=== PATIENT | male | born 1955 | race Caucasian/White ===

== ENCOUNTER → 2019-11-24 13:37 | Outpatient (BNVA) | payer MEDICARE, MEDICAID, SELFPAY | PROVIDERS: Family Provider Nurse Practitioner; PCP Nurse Practitioner; Visit Provider Nurse Practitioner | DX: M10.371 Gout due to renal impairment, right ankle and foot (principal); E11.65 Type 2 diabetes mellitus with hyperglycemia | CPT/HCPCS: 80053; 83036; 84550 ==

== ENCOUNTER 2019-12-09 14:38 | Outpatient (CLI) | payer MEDICARE, MEDICAID, SELFPAY ==
--- NOTE | 2019-12-09 15:00 | USCV_ITS ---
Pawan Marcum Age: 64 Gender: M : 1955 Exam Date: 12/09/2019 14:55 Ordering Phys: Riddhi Pena MD ([email or web address]) Technologist: Elaine Bradford Exam Location: [facility] Indication: LV FUNCTION AND AO VALVE ASSESSMENT BP: 124 / 82 HR: 80 Rhythm: Sinus Technical Quality: Adequate MEASUREMENTS (Male / Female) Normal Values 2D ECHO LV Diastolic Diameter PLAX 5.0 cm 4.2 - 5.9 / 3.9 - 5.3 cm LV Systolic Diameter PLAX 4.6 cm IVS Diastolic Thickness 1.1 cm 0.6 - 1.0 / 0.6 - 0.9 cm IVS Systolic Thickness 1.2 cm LVPW Diastolic Thickness 1.1 cm 0.6 - 1.0 / 0.6 - 0.9 cm LVPW Systolic Thickness 1.4 cm LVOT Diameter 2.1 cm LV Ejection Fraction 2D Teich 18.8 % LV Ejection Fraction MOD 2C 42.2 % LV Ejection Fraction 2C AL 44.0 % LA Diameter 3.9 cm LA Width 4.8 cm LA Height 5.7 cm RA Width 3.9 cm RA Height 6.3 cm Aorta at Sinotubular Diameter 5.9 cm M-MODE Aortic Annulus Diameter 2.7 cm LA Ao Ratio MM 1.4 MV E Point Septal Separation 0.6 cm DOPPLER AV Peak Velocity 199.0 cm/s LVOT Peak Velocity 60.0 cm/s AV Area Cont Eq vti 0.8 cm squared AV Area Cont Eq pk 1.0 cm squared MV Area PHT 5.0 cm squared Mitral E to A Ratio 0.7 MV E' Velocity 14.0 cm/s Mitral E to MV E' Ratio 5.6 Mitral E to LV E' Lateral Ratio 4.0 Mitral E to LV E' Septal Ratio 9.2 TR Peak Velocity 272.9 cm/s TR Peak Gradient 29.8 mmHg TR Mean Velocity 195.0 cm/s TR Mean Gradient 16.7 mmHg TR Velocity Time Integral 68.3 cm TV Peak E Velocity 49.0 cm/s Right Atrial Pressure 3.0 mmHg Pulmonary Artery Systolic Pressu 32.8 mmHg PV Peak Velocity 69.0 cm/s RV Acceleration Time 0.1 s RV Ejection Time 0.3 s RV AcT/ET 0.4 FINDINGS Left Ventricle Normal left ventricular cavity size. Mildly decreased left ventricular systolic function. Left ventricular ejection fraction is estimated at 50 %. Global left ventricular hypokinesis. Grade I/IV diastolic dysfunction (abnormal relaxation filling pattern), normal to mildly elevated filling pressures. Right Ventricle The right ventricle is normal in size and function. Right Atrium The right atrium is normal in size. Left Atrium The left atrium is normal in size. Mitral Valve Moderately thickened mitral valve. Mild mitral annular calcification. No mitral valve stenosis. Moderate mitral valve regurgitation. Aortic Valve Severe aortic valve calcification. Moderate aortic valve stenosis, mean gradient 7.9 mmHg, DESIRE 0.84 cm squared. cannot rule out pseudo aortic stenosis, may need furhter exploration with JONATHAN Tricuspid Valve Moderate tricuspid valve regurgitation. Pulmonic Valve Structurally normal pulmonic valve without significant stenosis. There is no pulmonic regurgitation. Pericardium Normal pericardium without effusion. Aorta Normal ascending aorta dimension. CONCLUSIONS 1-Normal left ventricular cavity size. Mildly decreased left ventricular systolic function. Left ventricular ejection fraction is estimated at 50 %. Global left ventricular hypokinesis. Grade I/IV diastolic dysfunction (abnormal relaxation filling pattern), normal to mildly elevated filling pressures. 2-Severe aortic valve calcification. Moderate aortic valve stenosis, mean gradient 7.9 mmHg, DESIRE 0.84 cm squared. cannot rule out pseudo aortic stenosis, may need furhter exploration with JONATHAN. 3-Moderately thickened mitral valve. Mild mitral annular calcification. No mitral valve stenosis. Moderate mitral valve regurgitation. 4-Moderate tricuspid valve regurgitation. 5-There is no pericardial effusion. 6-Pulmonary artery systolic pressure is within normal limits. 7-Right atrial pressure is around 5 mm of mercury. 8-There are no prior echocardiogram studies to compare. Riddhi Pena MD (Electronically Signed) Final Date: 13 December 2019 15:24 S
== END 2019-12-09 14:39 | disposition home or self-care (01) ==
LOC: RAD 14:41
PROVIDERS: Family Provider Nurse Practitioner; PCP Nurse Practitioner; Visit Provider Internal Medicine Cardiovascular Disease
DX: Z95.2 Presence of prosthetic heart valve (principal); I35.0 Nonrheumatic aortic (valve) stenosis; I70.0 Atherosclerosis of aorta; I05.9 Rheumatic mitral valve disease, unspecified; I07.1 Rheumatic tricuspid insufficiency
CPT/HCPCS: 93306

== ENCOUNTER → 2019-12-22 15:57 | Outpatient (BNVA) | payer MEDICARE, MEDICAID, SELFPAY | PROVIDERS: Family Provider Nurse Practitioner; PCP Nurse Practitioner; Visit Provider Nurse Practitioner | DX: E11.65 Type 2 diabetes mellitus with hyperglycemia (principal) | CPT/HCPCS: 80053; 85025 ==

== ENCOUNTER → 2020-02-29 11:54 | Outpatient (BNVA) | payer MEDICARE, MEDICAID, SELFPAY | PROVIDERS: Family Provider Nurse Practitioner; PCP Family Medicine; Visit Provider Family Medicine | DX: E11.65 Type 2 diabetes mellitus with hyperglycemia (principal); E78.2 Mixed hyperlipidemia; M10.9 Gout, unspecified | CPT/HCPCS: 80053; 80061; 82044; 83036; 84550; 85025 ==

== ENCOUNTER → 2020-03-07 09:46 | Outpatient (BNVA) | payer MEDICARE, MEDICAID, SELFPAY | PROVIDERS: Family Provider Nurse Practitioner; PCP Family Medicine; Visit Provider Family Medicine | DX: M25.571 Pain in right ankle and joints of right foot (principal) | CPT/HCPCS: 73610 ==

== ENCOUNTER → 2020-06-20 17:05 | Outpatient (BNVA) | payer MEDICARE, MEDICAID, SELFPAY | PROVIDERS: Family Provider Nurse Practitioner; PCP Family Medicine; Visit Provider Family Medicine | DX: E78.2 Mixed hyperlipidemia (principal); E11.65 Type 2 diabetes mellitus with hyperglycemia; M51.37 Other intervertebral disc degeneration, lumbosacral region; I10 Essential (primary) hypertension; Z23 Encounter for immunization | CPT/HCPCS: 80053; 80061; 83036; 85025 ==

== ENCOUNTER → 2020-11-13 08:31 | Outpatient (BNVA) | payer MEDICARE, MEDICAID, SELFPAY | PROVIDERS: Family Provider Nurse Practitioner; PCP Family Medicine; Visit Provider Family Medicine | DX: E11.65 Type 2 diabetes mellitus with hyperglycemia (principal); E78.2 Mixed hyperlipidemia; I10 Essential (primary) hypertension; E11.8 Type 2 diabetes mellitus with unspecified complications | CPT/HCPCS: 80053; 80061; 83036; 84443; 85025 ==

== ENCOUNTER → 2021-02-26 10:20 | Outpatient (BNVA) | payer MEDICARE, MEDICAID, SELFPAY | PROVIDERS: Family Provider Nurse Practitioner; PCP Family Medicine; Visit Provider Family Medicine | DX: M10.071 Idiopathic gout, right ankle and foot (principal); K21.9 Gastro-esophageal reflux disease without esophagitis; M51.37 Other intervertebral disc degeneration, lumbosacral region; E11.65 Type 2 diabetes mellitus with hyperglycemia; E78.2 Mixed hyperlipidemia; I10 Essential (primary) hypertension; Z68.37 Body mass index [BMI] 37.0-37.9, adult; Z71.89 Other specified counseling | CPT/HCPCS: 80053; 80061; 83036; 84443; 84550; 85025 ==

== ENCOUNTER → 2021-06-26 13:11 | Outpatient (BNVA) | payer MEDICARE, MEDICAID, SELFPAY | PROVIDERS: Family Provider Nurse Practitioner; PCP Family Medicine; Visit Provider Internal Medicine Cardiovascular Disease | DX: I10 Essential (primary) hypertension (principal); I42.8 Other cardiomyopathies; E11.65 Type 2 diabetes mellitus with hyperglycemia; I50.20 Unspecified systolic (congestive) heart failure; I35.0 Nonrheumatic aortic (valve) stenosis; Z95.0 Presence of cardiac pacemaker; Z95.2 Presence of prosthetic heart valve | CPT/HCPCS: 80048; 83880; 85025 ==

== ENCOUNTER → 2021-07-01 13:21 | Outpatient (BNVA) | payer MEDICARE, MEDICAID, SELFPAY | PROVIDERS: Family Provider Nurse Practitioner; PCP Family Medicine; Visit Provider Family Medicine | DX: E78.2 Mixed hyperlipidemia (principal); E11.65 Type 2 diabetes mellitus with hyperglycemia; I10 Essential (primary) hypertension; K21.9 Gastro-esophageal reflux disease without esophagitis; M10.071 Idiopathic gout, right ankle and foot; I50.9 Heart failure, unspecified | CPT/HCPCS: 80053; 80061; 83036; 84443; 85025 ==

== ENCOUNTER → 2021-07-03 11:03 | Outpatient (BNVA) | payer MEDICARE, MEDICAID, SELFPAY | PROVIDERS: Family Provider Nurse Practitioner; PCP Family Medicine; Visit Provider Nurse Practitioner Family | DX: I50.20 Unspecified systolic (congestive) heart failure (principal); I10 Essential (primary) hypertension; Z79.899 Other long term (current) drug therapy | CPT/HCPCS: 80048 ==

== ENCOUNTER 2021-09-19 10:26 | Outpatient (CLI) | payer MEDICARE, MEDICAID, SELFPAY ==
--- NOTE | 2021-09-19 10:15 | USCV_ITS ---
Pawan Marcum Age: 66 Gender: M : 1955 Exam Date: 09/19/2021 10:50 Ordering Phys: Riddhi Pena MD ([email or web address]) Technologist: Darvin Weeks Exam Location: [facility] [place] Indication: SOB BP: 110 / 70 HR: 50 Rhythm: Sinus Technical Quality: Adequate MEASUREMENTS (Male / Female) Normal Values 2D ECHO LV Diastolic Diameter PLAX 4.6 cm 4.2 - 5.9 / 3.9 - 5.3 cm LV Systolic Diameter PLAX 3.5 cm IVS Diastolic Thickness 0.8 cm 0.6 - 1.0 / 0.6 - 0.9 cm IVS Systolic Thickness 1.7 cm LVPW Diastolic Thickness 1.1 cm 0.6 - 1.0 / 0.6 - 0.9 cm LVPW Systolic Thickness 1.7 cm LVOT Diameter 2.0 cm LV Ejection Fraction 2D Teich 46.7 % LV Ejection Fraction MOD 2C 44.9 % LV Ejection Fraction 2C AL 45.0 % LA Diameter 4.0 cm LA Width 5.3 cm LA Height 5.3 cm RA Width 4.1 cm RA Height 4.8 cm Aorta at Sinotubular Diameter 4.2 cm DOPPLER AV Peak Velocity 201.0 cm/s LVOT Peak Velocity 99.0 cm/s AV Area Cont Eq vti 1.3 cm squared AV Area Cont Eq pk 1.6 cm squared MV Area PHT 5.5 cm squared Mitral E to A Ratio 2.3 MV E' Velocity 75.0 cm/s TR Peak Velocity 182.2 cm/s TR Peak Gradient 13.3 mmHg TR Mean Velocity 133.4 cm/s TR Mean Gradient 7.6 mmHg TR Velocity Time Integral 47.8 cm Right Atrial Pressure 3.0 mmHg Pulmonary Artery Systolic Pressu 16.3 mmHg RV Acceleration Time 0.1 s RV Ejection Time 0.3 s RV AcT/ET 0.5 FINDINGS Left Ventricle Normal left ventricular cavity size. Moderately decreased left ventricular systolic function. Global left ventricular hypokinesis. Left ventricular ejection fraction is estimated at 45 %. Grade III/IV diastolic dysfunction (restrictive filling pattern), severely elevated filling pressures. Right Ventricle The right ventricle is normal in size and function. Right Atrium The right atrium is normal in size. Left Atrium The left atrium is normal in size. Mitral Valve Bioprosthetic valve sitting in normal position without significant valvular or paravalvular leak. Velocity across the aortic valve is 2.1 cm care. Aortic valve area appears to be 1.3 cm2. Aortic Valve k. Velocity across the aortic valve is 2.1 cm care. Aortic valve area appears to be 1.3 cm2 Tricuspid Valve Structurally normal tricuspid valve without significant stenosis or regurgitation. Pulmonary artery systolic pressure is normal. Pulmonic Valve Structurally normal pulmonic valve without significant stenosis. There is no pulmonic regurgitation. Pericardium Normal pericardium without effusion. Aorta Normal ascending aorta dimension. CONCLUSIONS 1-Normal left ventricular cavity size. Moderately decreased left ventricular systolic function. Global left ventricular hypokinesis. Left ventricular ejection fraction is estimated at 45 %. Grade III/IV diastolic dysfunction (restrictive filling pattern), severely elevated filling pressures. 2-Bioprosthetic valve sitting in normal position without significant valvular or paravalvular leak. Velocity across the aortic valve is 2.1 cm2. Aortic valve area appears to be 1.3 cm2. 3-Moderately thickened mitral valve. Moderate mitral annular calcification. No mitral valve stenosis. Mild mitral valve regurgitation. 4-There is no pericardial effusion. 5-Pulmonary artery systolic pressure is within normal limits. 6-Right atrial pressure is around 5 mm of mercury. Riddhi Pena MD (Electronically Signed) Final Date: 19 September 2021 16:54 S
== END 2021-09-19 10:27 | disposition home or self-care (01) ==
LOC: RAD 10:29
PROVIDERS: PCP Family Medicine; Visit Provider Internal Medicine Cardiovascular Disease
DX: R06.02 Shortness of breath (principal); I35.0 Nonrheumatic aortic (valve) stenosis; I25.5 Ischemic cardiomyopathy; I50.20 Unspecified systolic (congestive) heart failure; Z95.2 Presence of prosthetic heart valve; I05.9 Rheumatic mitral valve disease, unspecified
CPT/HCPCS: 93306

== ENCOUNTER → 2021-10-11 10:06 | Outpatient (BNVA) | payer MEDICARE, MEDICAID, SELFPAY | PROVIDERS: PCP Family Medicine; Visit Provider Family Medicine | DX: E11.65 Type 2 diabetes mellitus with hyperglycemia (principal); E78.2 Mixed hyperlipidemia; I10 Essential (primary) hypertension | CPT/HCPCS: 80053; 80061; 83036; 84443; 85025 ==

== ENCOUNTER → 2021-12-16 10:17 | Outpatient (BNVA) | payer MEDICARE, MEDICAID, SELFPAY | PROVIDERS: PCP Family Medicine; Visit Provider Internal Medicine Cardiovascular Disease | DX: I42.8 Other cardiomyopathies (principal); Z95.0 Presence of cardiac pacemaker; E11.65 Type 2 diabetes mellitus with hyperglycemia; Z95.2 Presence of prosthetic heart valve; E78.2 Mixed hyperlipidemia; I11.0 Hypertensive heart disease with heart failure; I50.33 Acute on chronic diastolic (congestive) heart failure; I50.20 Unspecified systolic (congestive) heart failure; I25.5 Ischemic cardiomyopathy; F17.210 Nicotine dependence, cigarettes, uncomplicated; Z79.01 Long term (current) use of anticoagulants | CPT/HCPCS: 36415; 80048; 83880; 99215 ==

== ENCOUNTER → 2021-12-26 14:57 | Outpatient (BNVA) | payer MEDICARE, MEDICAID, SELFPAY | PROVIDERS: PCP Family Medicine; Visit Provider Internal Medicine Cardiovascular Disease | DX: I25.5 Ischemic cardiomyopathy (principal); I50.20 Unspecified systolic (congestive) heart failure; E11.65 Type 2 diabetes mellitus with hyperglycemia | CPT/HCPCS: 80048; 83880 ==

== ENCOUNTER → 2022-01-13 09:03 | Outpatient (BNVA) | payer MEDICARE, MEDICAID, SELFPAY | PROVIDERS: PCP Family Medicine; Visit Provider Nurse Practitioner Family | DX: I42.8 Other cardiomyopathies (principal); F17.200 Nicotine dependence, unspecified, uncomplicated | CPT/HCPCS: 80048; 99213; 99214 ==

== ENCOUNTER 2022-01-23 12:35 | Outpatient (CLI) | payer MEDICARE, MEDICAID, SELFPAY ==
[2022-01-23 13:45] LABS: Anion Gap 13.9 (5-19); Blood Urea Nitrogen 79 mg/dL (8-23); Calcium 9.8 mg/dL (8.5-10.5); Carbon Dioxide 28 mmol/L (22-29); Chloride 101 mmol/L (98-107); Glucose 148 mg/dL (65-115); Osmolality Calculated 312 mOsm/kg (285-295); Potassium 4.9 mmol/L (3.5-5.1); Sodium 138 mmol/L (136-145)
== END 2022-01-23 12:36 | disposition home or self-care (01) ==
LOC: RAD 12:39
PROVIDERS: PCP Family Medicine; Visit Provider Nurse Practitioner Family
DX: I25.5 Ischemic cardiomyopathy (principal); I50.20 Unspecified systolic (congestive) heart failure
CPT/HCPCS: 36415; 80048

== ENCOUNTER → 2022-02-25 16:29 | Outpatient (BNVA) | payer MEDICARE, MEDICAID, SELFPAY | PROVIDERS: PCP Family Medicine; Visit Provider Nurse Practitioner Family | DX: E11.65 Type 2 diabetes mellitus with hyperglycemia (principal); E78.2 Mixed hyperlipidemia; I10 Essential (primary) hypertension; T14.8XXA Other injury of unspecified body region, initial encounter; X58.XXXA Exposure to other specified factors, initial encounter | CPT/HCPCS: 80053; 80061; 83036; 85025 ==

== ENCOUNTER → 2022-03-21 09:07 | Outpatient (BNVA) | payer MEDICARE, MEDICAID, SELFPAY | PROVIDERS: PCP Family Medicine; Visit Provider Internal Medicine Cardiovascular Disease | DX: Z45.010 Encounter for checking and testing of cardiac pacemaker pulse generator [battery] (principal) | CPT/HCPCS: 93280 ==

== ENCOUNTER → 2022-05-12 10:40 | Outpatient (BNVA) | payer MEDICARE, MEDICAID, SELFPAY | PROVIDERS: PCP Family Medicine; Visit Provider Family Medicine | DX: E11.65 Type 2 diabetes mellitus with hyperglycemia (principal); E78.2 Mixed hyperlipidemia; D64.9 Anemia, unspecified; I50.20 Unspecified systolic (congestive) heart failure; R89.9 Unspecified abnormal finding in specimens from other organs, systems and tissues; I11.0 Hypertensive heart disease with heart failure | CPT/HCPCS: 80053; 83036; 83880; 84443; 85025 ==

== ENCOUNTER → 2022-06-18 11:24 | Outpatient (BNVA) | payer MEDICARE, MEDICAID, SELFPAY | PROVIDERS: PCP Family Medicine; Visit Provider Internal Medicine Cardiovascular Disease | DX: I25.5 Ischemic cardiomyopathy (principal); Z95.2 Presence of prosthetic heart valve; Z95.0 Presence of cardiac pacemaker; E78.2 Mixed hyperlipidemia; E11.65 Type 2 diabetes mellitus with hyperglycemia; I12.9 Hypertensive chronic kidney disease with stage 1 through stage 4 chronic kidney disease, or unspecified chronic kidney disease; E11.22 Type 2 diabetes mellitus with diabetic chronic kidney disease; N18.2 Chronic kidney disease, stage 2 (mild); Z79.84 Long term (current) use of oral hypoglycemic drugs | CPT/HCPCS: 99214 ==

== ENCOUNTER → 2022-07-17 11:07 | Outpatient (BNVA) | payer MEDICARE, MEDICAID, SELFPAY | PROVIDERS: PCP Family Medicine; Visit Provider Internal Medicine Cardiovascular Disease | DX: Z45.010 Encounter for checking and testing of cardiac pacemaker pulse generator [battery] (principal) | CPT/HCPCS: 93280 ==

== ENCOUNTER 2022-07-18 10:41 | Outpatient (CLI) | payer MEDICARE, MEDICAID, SELFPAY ==
[2022-07-18 11:24] LABS: Basophils % 0.4 %; Eosinophils % 0.5 %; Hematocrit 30.4 % (42.0-52.0); Hemoglobin 9.5 g/dL (11.7-16.6); Lymphocytes # 1.1 10^3/uL (0.8-4.8); Lymphocytes % 19.2 %; Mean Corpuscular HGB Conc 31.3 g/dL (30.0-36.0); Mean Corpuscular Hemoglobin 31.7 pg (28.0-34.0); Mean Corpuscular Volume 101.3 fl (80-94); Mean Platelet Volume 9.9 fL (7.4-10.4); Monocytes # 0.3 10^3/uL (0.2-0.9); Neutrophils # 4.14 10^3/uL (1.8-7.7); Neutrophils % 73.7 %; Nucleated Red Blood Cells % 0 %; Platelet Count 156 10^3/cmm (130-400); Red Cell Distribution Width 14.1 % (12.1-15.1); White Blood Count 5.6 10^3/uL (4.0-10.0)
[2022-07-18 11:38] LABS: INR 1.28 (0.83-1.21); Prothrombin Time (Patient) 16.3 Seconds (12.0-15.1)
[2022-07-18 11:42] LABS: Anion Gap 10.5 (5-19); Blood Urea Nitrogen 43 mg/dL (8-23); Calcium 9.1 mg/dL (8.5-10.5); Carbon Dioxide 26 mmol/L (22-29); Chloride 102 mmol/L (98-107); Glomerular Filtration Rate 33.7 mL/min (90-130); Glucose 115 mg/dL (65-115); Osmolality Calculated 290 mOsm/kg (285-295); Potassium 4.5 mmol/L (3.5-5.1); Sodium 134 mmol/L (136-145)
== END 2022-07-18 10:42 | disposition home or self-care (01) ==
LOC: LAB 10:45
PROVIDERS: PCP Family Medicine; Visit Provider Internal Medicine Cardiovascular Disease
DX: I10 Essential (primary) hypertension (principal); I50.20 Unspecified systolic (congestive) heart failure; I42.8 Other cardiomyopathies; Z95.2 Presence of prosthetic heart valve; E11.65 Type 2 diabetes mellitus with hyperglycemia; I25.5 Ischemic cardiomyopathy; I35.0 Nonrheumatic aortic (valve) stenosis; Z95.0 Presence of cardiac pacemaker
CPT/HCPCS: 36415; 80048; 85025; 85610; 86850; 86900

== ENCOUNTER → 2022-08-04 10:33 | Outpatient (BNVA) | payer MEDICARE, MEDICAID, SELFPAY | PROVIDERS: PCP Family Medicine; Visit Provider Family Medicine | DX: R11.2 Nausea with vomiting, unspecified (principal); R19.7 Diarrhea, unspecified; R50.9 Fever, unspecified | CPT/HCPCS: 87400; 87426 ==

== ENCOUNTER 2022-08-11 13:05 | Emergency (ER) | payer MEDICARE, MEDICAID, SELFPAY ==
[2022-08-11 13:32] VITALS: BP 99/67; PULSE 78; RESP 16; TEMP 36.7; O2SAT 90; BMI 35.2
--- NOTE | 2022-08-11 14:38 | XR_ITS ---
WS: [id number] Portable AP upright chest, 08/11/2022 Clinical Data: sob Comparison: Two-view chest, 520 11/30/2017 Findings: The heart is enlarged. The pulmonary vascularity is minimally prominent. No nodules, masses or effusions are seen. The midline sternotomy sutures and an artificial heart valve. There is a pace maker in good position with the generator in the left axilla. No pneumonia or pneumothorax is seen. T he aortic arch and descending thoracic aorta show mild calcification and tortuosity. XR/XR chest 1V portable [id number] Impression: 1. Cardiomegaly with probable pulmonary vascular congestion. 2. Atherosclerosis, cardiomegaly and permanent pacemaker.
--- NOTE | 2022-08-11 15:15 | ED_ITS ---
HPI - Weakness General: Chief complaint: Weakness Stated complaint: sent from [facility] Time Seen by Provider: 08/11/22 14:39 Source: patient Mode of arrival: ambulatory History of Present Illness: 67-year-old male who presents emergency room at direction of the primary care clinic. He has been known to be chronically anemic. Looking through his old records over the last month he has become more significantly anemic with his hemoglobin drifting down to 7.7 has been macrocytic for at least the last 2-1/2 years. Looking through his chart I do not see where he has had an anemia work-up in the past. He may have had it at an outside facility but is not within our records. He does have chronic kidney disease as well. He denies any medic easy melena hematemesis or coffee-ground emesis. MD Complaint: generalized weakness Onset (ago): year(s) Duration: progressively worsening Relieving factors: none Exacerbating factors: none Associated symptoms: Denies chest pain, chills, confusion, melena, decreased appetite, diaphoresis, dysuria, easy bruising, fever(s), headache(s), myalgias, nausea, rash, short of breath, syncope or vomiting Review of Systems Const: Reports: fatigue; Denies: fever(s), chills or diaphoresis ENMT: Denies: throat pain, ear or mastoid pain, nasal discharge or nasal congestion Card: Reports: dyspnea on exertion and orthopnea; Denies: chest pain, palpitations, irregular heart rhythm, edema, swelling of feet/ankles or syncope Resp: Denies: dyspnea, productive cough or non-productive cough GI: Denies: nausea, vomiting or melena : Denies: dysuria, urinary frequency or urinary urgency Skin/Breast: Denies: rash or pruritus Neuro: Denies: headache(s) or confusion Torres/Lymph: Denies: easy bruising PFSH ED PFSH: Medical History Controlled diabetes mellitus with hyperglycemia DDD (degenerative disc disease), lumbosacral Difficulty attaining erection 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 HTN (hypertension) Idiopathic gout, right ankle and foot Ischemic cardiomyopathy Mixed hyperlipidemia Nonischemic cardiomyopathy Nonrheumatic aortic (valve) stenosis Surgical History Aortic valve replaced History of cardiac pacemaker Hx of arthroscopy of left knee Hx of heart surgery 2017 aortic stenosis with valve replacement Hx of tooth extraction Family History Mother CAD (coronary artery disease) Brother Cancer Other Hypertension Denies family history of Diabetes Clotting disorder Dementia Chronic kidney disease (CKD) Suicide Anesthesia complication Bleeding disorder Lung disease Stroke Social History Smoking and tobacco status: never smoked Second hand smoke exposure: No Alcohol intake: current Alcohol intake frequency: holidays/special occasions on ly Adopted: No Caregiver/support person: Yes (spouse) Lives independently: Yes Household members: spouse and children Housing: House Marital status: Number of children: 3 Number of grandchildren: 3 Highest education level completed: 6th Grade service: No Current occupational status: disabled Pets and animals: Yes History of recent travel: No Current gender identity: Male Special pola needs: No Agree to transfusion: Yes Physical Exam Const: COMMON NORMALS: no acute distress GENERAL APPEARANCE: cooperative and comfortable ORIENTATION/CONSCIOUSNESS: Yes awake, Yes oriented to person, Yes oriented to place and Yes oriented to time HENMT: COMMON NORMALS: normocephalic, atraumatic and hearing grossly normal bilaterally HEAD & SCALP: normocephalic and atraumatic Lymph: LYMPHATIC: no lymphadenopathy noted and no lymphedema noted Resp: COMMON NORMALS: normal respiratory effort, No retractions, No use of accessory muscles and clear to auscultation bilaterally AUSCULTATION: clear to auscultation bilaterally Cardio: COMMON NORMALS: regular rate, regular rhythm and No murmurs present (Cardio) RATE: regular rate RHYTHM: regular rhythm GI: COMMON NORMALS: Soft to palpation and No hepatosplenomegaly present AUSCULTATION: Yes normoactive bowel sounds PALPATION: Yes Soft to palpation, No Tenderness to palpation present (GI), No Guarding due to palpation present (GI) and Yes No hepatosplenomegaly present Extremity: COMMON NORMALS: normal to inspection, capillary refill normal, no clubbing, cyanosis or edema, no calf tenderness and no pedal edema Neuro: SENSORIUM/ORIENTATION: Yes oriented to person, Yes oriented to place and Yes oriented to time Skin: COMMON NORMALS: no rashes or lesions noted GENERAL SKIN EXAM: no rashes or lesions noted Course Vital Signs: Vital signs: Vital Signs Temperature 98.1 F 08/11/22 13:32 Pulse Rate 80 08/11/22 17:00 Respiratory Rate 20 H 08/11/22 15:35 Blood Pressure 111/84 08/11/22 17:20 Pulse Oximetry 98 08/11/22 17:20 Oxygen Delivery Me thod 08/11/22 17:00 Oxygen Flow Rate 3 08/11/22 17:00 MDM - Weakness Medical Decision Making Stable at this point his anemia has been progressively thin had a macrocytic anemia for nearly 2-1/2 years. At this point I do not believe the patient needs to be emergently transfused. We will type and screen and schedule for blood to be transfused tomorrow anemia labs done today here in the emergency room.Patient has chronic kidney disease and is creatinine is approximately at his baseline. Have the patient follow-up with hematology to further evaluate his anemia. Medical Records I reviewed the patient's medical records. Lab Data I reviewed the patient's lab results. 08/11/22 14:50 08/11/22 14:50 Radiology Impressions Chest X-Ray 08/11/22 14:38 Impression: 1. Cardiomegaly with probable pulmonary vascular congestion. 2. Atherosclerosis, cardiomegaly and permanent pacemaker. Laboratory Results WBC Cancelled 08/11/22 14:50 Corrected WBC Cancelled 08/11/22 14:50 RBC Cancelled 08/11/22 14:50 Hgb Cancelled 08/11/22 14:50 Hct Cancelled 08/11/22 14:50 MCV Cancelled 08/11/22 14:50 MCH Cancelled 08/11/22 14:50 MCHC Cancelled 08/11/22 14:50 RDW Cancelled 08/11/22 14:50 Plt Count Cancelled 08/11/22 14:50 MPV Cancelled 08/11/22 14:50 Gran % Cancelled 08/11/22 14:50 Neut % (Auto) Cancelled 08/11/22 14:50 Lymph % (Auto) Cancelled 08/11/22 14:50 [place] % (Auto) Cancelled 08/11/22 14:50 Eos % (Auto) Cancelled 08/11/22 14:50 Baso % (Auto) Cancelled 08/11/22 14:50 Reticulocyte % (Auto) 5.2 % (0.5-2.0) H 08/11/22 13:11 Neut # (Auto) Cancelled 08/11/22 14:50 Lymph # (Auto) Cancelled 08/11/22 14:50 [place] # (Auto) Cancelled 08/11/22 14:50 Eos # (Auto) Cancelled 08/11/22 14:50 Baso # (Auto) Cancelled 08/11/22 14:50 Absolute Gran (auto) Cancelled 08/11/22 14:50 Nucleated RBC % (auto) Cancelled 08/11/22 14:50 Nucleated RBCs # Cancelled 08/11/22 14:50 Haptoglobin 10.0 mg/L (30-200) L 08/11/22 14:50 PT Cancelled 08/11/22 14:50 INR Cancelled 08/11/22 14:50 APTT Cancelled 08/11/22 14:50 Sodium Cancelled 08/11/22 14:50 Potassium Cancelled 08/11/22 14:50 Chloride Cancelled 08/11/22 14:50 Carbon Dioxide Cancelled 08/11/22 14:50 Anion Gap Cancelled 08/11/22 14:50 BUN Cancelled 08/11/22 14:50 Creatinine Cancelled 08/11/22 14:50 GFR Calculation Cancelled 08/11/22 14:50 Glucose Cancelled 08/11/22 14:50 Calculated Osmolality Cancelled 08/11/22 14:50 Calcium Cancelled 08/11/22 14:50 Iron 63 ug/dL (59-158) 08/11/22 14:50 TIBC 282 mcg/dl 08/11/22 14:50 % Saturation 22.3 % (20-50) 08/11/22 14:50 Unsat Iron Binding 219 ug/dL (112-347) 08/11/22 14:50 Ferritin 476 ng/mL (30-400) H 08/11/22 14:50 Total Bilirubin Cancelled 08/11/22 14:50 AST Cancelled 08/11/22 14:50 ALT Cancelled 08/11/22 14:50 Alkaline Phosphatase Cancelled 08/11/22 14:50 NT-Pro-B Natriuret Pep Cancelled 08/11/22 14:50 Total Protein Cancelled 08/11/22 14:50 Albumin Cancelled 08/11/22 14:50 Globulin Cancelled 08/11/22 14:50 Vitamin B12 471 pg/mL (232-1245) 08/11/22 14:50 Blood Type Cancelled 08/11/22 15:00 Rho(D) Type Cancelled 08/11/22 15:00 Antibody Screen Cancelled 08/11/22 15:00 Discharge Plan Discharge Patient Disposition: Home Clinical Impression: Congestive heart failure, Anemia, macrocytic Condition: Stable Prescriptions: No Action cyclobenzaprine 10 mg tablet 10 mg PO .at bedtime Qty: 30 2RF (DME) diabetic shoes with inserts See Rx Instructions .Route .MEDSUPPLY Qty: 1 0RF Rx Instructions: As directed (DME) Diabetic shoes with inserts See Rx Instructions .Route .MEDSUPPLY Qty: 1 0RF Rx Instructions: As directed ondansetron HCl 8 mg tablet 8 mg PO Q8H Qty: 20 0RF diphenoxylate-atropine [Lomotil] 2.5-0.025 mg tablet 1 tab PO Q8H Qty: 30 0RF metolazone 2.5 mg tablet 2.5 mg PO .qod metoprolol succinate 100 mg tablet extended release 24 hr 100 mg PO DAILY Qty: 90 3RF (DME) o2 at 3L per nasal cannula See Rx Instructions .Route .MEDSUPPLY Qty: 1 0RF Rx Instructions: Room air O2 sats were 83. After 3L O2 went up to 90's however when walking still at 89 on 3 L O2. cetirizine [Zyrtec] 10 mg tablet 10 mg PO BID Qty: 20 0RF Rx Instructions: Take with famotidine for the next ten days. atorvastatin 20 mg tablet See Rx Instructions .ROUTE .COMPLEX Qty: 90 2RF Dose Instruction: TAKE ONE TABLET BY MOUTH DAILY Rx Instructions: TAKE ONE TABLET BY MOUTH DAILY potassium chloride 20 mEq tablet,ER particles/crystals 20 meq PO BID Qty: 90 5RF furosemide 20 mg tablet 20 mg PO DAILY Qty: 90 3RF pregabalin 100 mg capsule 100 mg PO TID Qty: 90 2RF Eliquis 5 mg tablet See Rx Instructions .ROUTE .COMPLEX Qty: 60 6RF Dose Instruction: TAKE ONE TABLET BY MOUTH TWICE DAILY Rx Instructions: TAKE ONE TABLET BY MOUTH TWICE DAILY fenofibrate 160 mg tablet See Rx Instructions .ROUTE .COMPLEX Qty: 30 6RF Dose Instruction: TAKE ONE TABLET BY MOUTH EVERY DAY Rx Instructions: TAKE ONE TABLET BY MOUTH EVERY DAY allopurinol 300 mg tablet See Rx Instructions .ROUTE .COMPLEX Qty: 30 6RF Dose Instruction: TAKE ONE TABLET BY MOUTH DAILY Rx Instructions: TAKE ONE TABLET BY MOUTH DAILY (DME) Blood pressure cuff and machine See Rx Instructions .Route .MEDSUPPLY Qty: 1 0RF Rx Instructions: As directed duloxetine 20 mg capsule,delayed release(DR/EC) See Rx Instructions .ROUTE .COMPLEX Qty: 60 3RF Dose Instruction: TAKE ONE CAPSULE BY MOUTH TWICE DAILY Rx Instructions: TAKE ONE CAPSULE BY MOUTH TWICE DAILY acetaminophen-codeine 300-60 mg tablet 1 tab PO Q8H Qty: 90 0RF tadalafil 20 mg tablet See Rx Instructions .ROUTE .COMPLEX Qty: 30 2RF Dose Instruction: TAKE ONE TABLET BY MOUTH ONCE NEEDED FOR sexual activity, administer approximately 30 minutes BEFORE activity, max ONE tablet in 24 HOURS Rx Instructions: TAKE ONE TABLET BY MOUTH ONCE NEEDED FOR sexual activity, administer ap proximately 30 minutes BEFORE activity, max ONE tablet in 24 HOURS Entresto 97-103 mg tablet See Rx Instructions .ROUTE .COMPLEX Qty: 180 3RF Dose Instruction: TAKE ONE TABLET BY MOUTH TWICE DAILY Rx Instructions: TAKE ONE TABLET BY MOUTH TWICE DAILY famotidine 40 mg tablet See Rx Instructions .ROUTE .COMPLEX Qty: 60 2RF Dose Instruction: TAKE ONE TABLET BY MOUTH TWICE DAILY Rx Instructions: TAKE ONE TABLET BY MOUTH TWICE DAILY Trulicity 0.75 mg/0.5 mL pen injector See Rx Instructions .ROUTE .COMPLEX Qty: 6 2RF Dose Instruction: inject 0.75mg SUBCUTANEOUSLY ONCE WEEKLY Rx Instructions: inject 0.75mg SUBCUTANEOUSLY ONCE WEEKLY metformin 850 mg tablet See Rx Instructions .ROUTE .COMPLEX Qty: 90 2RF Dose Instruction: TAKE ONE TABLET BY MOUTH DAILY Rx Instructions: TAKE ONE TABLET BY MOUTH DAILY amlodipine 5 mg tablet See Rx Instructions .ROUTE .COMPLEX Qty: 90 2RF Dose Instruction: TAKE ONE TABLET BY MOUTH EVERY DAY Rx Instructions: TAKE ONE TABLET BY MOUTH EVERY DAY Discharge Orders: Discharge ED (Routine); Ordered 08/11/22 Ordered By: Carlos Riley Referrals: Diana Butcher MD [Primary Care Provider] - Discharge Diet: Usual diet Discharge Activity: Limit activity as instructed Patient Instructions: Opioid Safety, Pain Management Activity Restrictions/Additional Instructions: Using sent to ER for anemia and shortness of breath. The anemia has been longstanding as evidenced by your red blood cell indices and old records. It is worse than it has been before. You were typed and screened for blood tomorrow he should leave the blue bracelet on your wrist until you return to outpatient tomorrow where they were transfusing unit of blood. He does some mild congestive heart failure as well. Suggest that you increase your Lasix to 40 mg daily. Continue your potassium supplement 20 mEq twice a day. You should recheck your primary care doctor within the week to reevaluate your heart failure and your anemia. Anemia labs were drawn in the emergency room prior to your discharge Coding Level of Care Code ED Feed Research Technician for Janelle Fwd Exam Comprehensive
[2022-08-11 15:35] VITALS: BP 127/87; PULSE 78; RESP 20; O2SAT 98
[2022-08-11 16:39] VITALS: O2SAT 87
[2022-08-11] MEDS: FUROsemide 10 mg/mL SDV 4mL 40 MG IVP (16:52)
[2022-08-11 17:00] VITALS: BP 118/80; PULSE 80; O2SAT 100
[2022-08-11 17:20] VITALS: BP 111/84; O2SAT 98
[2022-08-11 18:13] LABS: Reticulocyte % 5.2 % (0.5-2.0)
[2022-08-11 19:01] LABS: Ferritin 476 ng/mL (30-400); Iron 63 ug/dL (59-158); Percent Saturation 22.3 % (20-50); Total Iron Binding Capacity 282 mcg/dl; Unsaturated Iron Binding 219 ug/dL (112-347); Vitamin B12 471 pg/mL (232-1245)
--- NOTE | 2022-08-14 13:49 | DCPLANNER ---
Addendum entered by Eboni Ibarra 09/10/22 12:19: Patient had a follow up appointment scheduled with oncology -patient did attend appointment. Addendum entered by Eboni Ibarra 08/19/22 13:10: Patient has a follow up appointment scheduled for Thursday, September 08, 2022 at 11:[address] Payne at the [facility]. Clinic will call patient with appointment information. Original Note: care transition manager had message to schedule a follow up appointment for patient to hematology oncology for macrocytic anemia. care transition manager spoke with Charisse, medical records coordinator for the [facility]. care transition manager gave clinic patients information. care transition manager was told that patients information will be printed and reviewed. Clinic will call patient with appointment information.
== END 2022-08-11 17:15 | disposition home or self-care (01) ==
PROVIDERS: Emergency Provider Family Medicine; PCP Family Medicine
DX: D53.9 Nutritional anemia, unspecified (principal); I11.0 Hypertensive heart disease with heart failure; I50.9 Heart failure, unspecified; Z79.01 Long term (current) use of anticoagulants; Z79.85 Long-term (current) use of injectable non-insulin antidiabetic drugs; Z79.84 Long term (current) use of oral hypoglycemic drugs; E11.9 Type 2 diabetes mellitus without complications; I10 Essential (primary) hypertension; E78.2 Mixed hyperlipidemia; Z95.0 Presence of cardiac pacemaker
CPT/HCPCS: 36415; 71045; 80053; 80061; 82607; 82728; 83010; 83036; 83540; 83550; 83880; 85025; 85045; 85610; 85730; 86850; 86900; 87040; 96374; 99284; J1940

== ENCOUNTER → 2022-08-12 09:12 | Day surgery (SDC) | payer MEDICARE, MEDICAID, SELFPAY ==
[2022-08-11 14:56] LABS: Basophils % 0.5 %; Eosinophils # 0.1 10^3/uL (0.0-0.8); Hematocrit 25.1 % (42.0-52.0); Hemoglobin 7.7 g/dL (11.7-16.6); Lymphocytes # 1.4 10^3/uL (0.8-4.8); Lymphocytes % 22.3 %; Mean Corpuscular HGB Conc 30.7 g/dL (30.0-36.0); Mean Corpuscular Hemoglobin 32.5 pg (28.0-34.0); Mean Corpuscular Volume 105.9 fl (80-94); Mean Platelet Volume 9.6 fL (7.4-10.4); Monocytes # 0.2 10^3/uL (0.2-0.9); Monocytes % 3.9 %; Neutrophils # 4.41 10^3/uL (1.8-7.7); Nucleated Red Blood Cells % 0 %; Platelet Count 181 10^3/cmm (130-400); Red Blood Count 2.37 10^6/uL (4.1-5.3); Red Cell Distribution Width 16.3 % (12.1-15.1); White Blood Count 6.1 10^3/uL (4.0-10.0)
[2022-08-11 15:10] LABS: INR 1.16 (0.8-1.2)
[2022-08-11 15:11] LABS: Partial Thromboplastin Time 26.1 SECONDS (23.9-36.7)
[2022-08-11 15:26] LABS: Alanine Aminotransferase 11 U/L (0-41); Albumin Level 3.2 g/dL (3.5-5.2); Alkaline Phosphatase 35 U/L (40-130); Anion Gap 11.5 (5-19); Aspartate Amino Transferase 23 U/L (0-40); Blood Urea Nitrogen 44 mg/dL (8-23); Calcium 8.8 mg/dL (8.5-10.5); Carbon Dioxide 24 mmol/L (22-29); Chloride 102 mmol/L (98-107); Globulin 5.9 g/dL (1.3-4.6); Glomerular Filtration Rate 30.2 mL/min (90-130); Glucose 107 mg/dL (65-115); NT Pro B Type Natriuretic Pept 6226 pg/mL (0-125); Osmolality Calculated 288 mOsm/kg (285-295); Potassium 4.5 mmol/L (3.5-5.1); Sodium 133 mmol/L (136-145); Total Bilirubin 0.8 mg/dL (0.15-1.2); Total Protein 9.1 g/dL (6.6-8.7)
[2022-08-12] VITALS (9 sets, daily range): BP systolic 121–165; BP diastolic 80–113; PULSE 80–100; RESP 18; TEMP 36.3–36.9; O2SAT 94–98
[2022-08-12] MEDS: sodium chloride 0.9% (100 ml) 100 ML 10 ML ×2 (09:43→12:11)
== END ==
PROVIDERS: Emergency Medicine; PCP Family Medicine; Visit Provider Family Medicine
DX: D64.9 Anemia, unspecified (principal)
CPT/HCPCS: 36415; 36430; 80053; 83880; 85025; 85610; 85730; 86850; 86900; 86920; P9016; P9040

== ENCOUNTER 2022-08-14 13:20 | Outpatient (CLI) | payer MEDICARE, MEDICAID, SELFPAY ==
[2022-08-14 13:49] LABS: Basophils % 0.3 %; Eosinophils # 0.1 10^3/uL (0.0-0.8); Hemoglobin 8.9 g/dL (11.7-16.6); Lymphocytes # 1.4 10^3/uL (0.8-4.8); Lymphocytes % 21.6 %; Mean Corpuscular HGB Conc 31.8 g/dL (30.0-36.0); Mean Corpuscular Hemoglobin 32.7 pg (28.0-34.0); Mean Corpuscular Volume 102.9 fl (80-94); Mean Platelet Volume 9.8 fL (7.4-10.4); Monocytes # 0.3 10^3/uL (0.2-0.9); Monocytes % 4.9 %; Neutrophils # 4.53 10^3/uL (1.8-7.7); Neutrophils % 71.7 %; Nucleated Red Blood Cells % 0 %; Platelet Count 173 10^3/cmm (130-400); Red Blood Count 2.72 10^6/uL (4.1-5.3); Red Cell Distribution Width 16.7 % (12.1-15.1); White Blood Count 6.3 10^3/uL (4.0-10.0)
== END 2022-08-14 13:21 | disposition home or self-care (01) ==
LOC: LAB 13:22
PROVIDERS: PCP Family Medicine; Visit Provider Internal Medicine Cardiovascular Disease
DX: D53.9 Nutritional anemia, unspecified (principal); I25.5 Ischemic cardiomyopathy; I35.0 Nonrheumatic aortic (valve) stenosis; I50.20 Unspecified systolic (congestive) heart failure; Z95.0 Presence of cardiac pacemaker
CPT/HCPCS: 85025

== ENCOUNTER 2022-08-15 09:15 | Observation (INO) | payer MEDICARE, MEDICAID, SELFPAY ==
[2022-08-15] VITALS (52 sets, daily range): BP systolic 112–146; BP diastolic 68–97; PULSE 70–126; RESP 5–39; TEMP 36.5–36.9; O2SAT 78–98; BMI 36.6
--- NOTE | 2022-08-15 07:37 | P.HP_ITS ---
Providers/Chief Complaint Admitting Physician: ISATU Scott MD Primary Care Provider: Diana Butcher MD Chief Complaint: Z45.010 History of Present Illness Pawan Marcum is a 67 year old male Patient with with a history of, aortic valve replacement, dyslipidemia and type 2 diabetes had permanent pacer implantation for symptomatic bradycardia/atrial fibrillation. He was found to h ave elective replacement indication for the pacemaker. Patient has a history of chronic anemia. His hemoglobin was found to be around 7.73 days ago. He received 2 units of blood transfusion. The latest hemoglobin is 8.9. He has no fever or chills. No cough. Denies any chest pain or unusual shortness of breath. He has been noticing increasing swelling of the lower extremities lately. No other specific complaints. Denies any orthopnea or PND. Review of Systems Narrative: CONSTITUTIONAL: No fever or chills. EYES: No blurring of vision or other visual disturbances lately. ENT: No hoarseness of voice, auditory disturbances or sore throat. CARDIOVASCULAR: As mentioned above. RESPIRATORY: Has the usual dyspnea on exertion. GASTROINTESTINAL: No hematemesis or melena. GENITOURINARY: No dysuria or hematuria. INTEGUMENTARY: No skin rashes or history of skin cancer. NEURO: No transient ischemic attacks or amaurosis. PSYCHIATRIC: No history of psychosis or major depression. HEMATOLOGIC: No bleeding disorders or significant anemia. ENDOCRINE: No history of polyuria or polydipsia. MUSCULOSKELETAL: No recent joint pain or swelling. ALLERGY/IMMUNOLOGY: As mentioned above. Medications/Allergies Home Medications Medication Instructions Recorded Confirmed Last Taken Type cyclobenzaprine 10 mg tablet 10 mg PO .at bedtime #30 tabs 11/09/20 08/15/22 08/12/22 20:00 Rx diabetic shoes with inserts #1 ea 02/28/21 08/12/22 08/12/22 Rx atorvastatin 20 mg tablet See Rx Instructions .Route 10/25/21 08/15/22 08/12/22 20:00 Rx .COMPLEX #90 tabs Diabetic shoes with inserts #1 ea 12/05/21 08/12/22 08/12/22 Rx potassium chloride 20 mEq 20 meq PO BID #90 tabs 12/30/21 08/15/22 08/13/22 20:00 Rx tablet,extended release(part/cryst) furosemide 20 mg tablet 20 mg PO DAILY edema #90 tabs 02/18/22 08/15/22 08/13/22 20:00 Rx pregabalin 100 mg capsule 100 mg PO TID #90 caps 04/21/22 08/15/22 08/12/22 20:00 Rx allopurinol 300 mg tablet See Rx Instructions .Route 06/04/22 08/15/22 08/12/22 20:00 Rx .COMPLEX #30 tabs apixaban 5 mg tablet (Eliquis) See Rx Instructions .Route 06/04/22 08/15/22 08/12/22 20:00 Rx .COMPLEX #60 tabs fenofibrate 160 mg tablet See Rx Instructions .Route 06/04/22 08/15/22 08/12/22 20:00 Rx .COMPLEX #30 tabs metolazone 2.5 mg tablet 2.5 mg PO .qod 06/18/22 08/15/22 08/12/22 20:00 History metoprolol succinate 100 mg 100 mg PO DAILY #90 tabs 06/18/22 08/15/22 08/12/22 20:00 Rx tablet,extended release 24 hr Blood pressure cuff and machine #1 ea 06/27/22 08/12/22 08/12/22 Rx duloxetine 20 mg capsule,delayed See Rx Instructions .Route 07/01/22 08/15/22 08/12/22 20:00 Rx release .COMPLEX #60 caps acetaminophen 300 mg-codeine 60 mg 1 tab PO Q8H #90 tabs 07/10/22 08/15/22 08/12/22 20:00 Rx tablet tadalafil 20 mg tablet See Rx Instructions .Route 07/10/22 08/15/22 08/12/22 20:00 Rx .COMPLEX #30 tabs sacubitril 97 mg-valsartan 103 mg See Rx Instructions .Route 07/28/22 08/15/22 08/12/22 20:00 Rx tablet (Entresto) .COMPLEX #180 tabs diphenoxylate-atropine 2.5 1 tab PO Q8H diarrhea #30 tabs 08/04/22 08/15/22 08/12/22 20:00 Rx mg-0.025 mg tablet (Lomotil) ondansetron HCl 8 mg tablet 8 mg PO Q8H #20 tabs 08/04/22 08/15/22 08/12/22 20:00 Rx amlodipine 5 mg tablet See Rx Instructions .Route 08/05/22 08/15/22 08/12/22 20:00 Rx .COMPLEX #90 tabs dulaglutide 0.75 mg/0.5 mL See Rx Instructions .Route 08/05/22 08/15/22 08/12/22 20:00 Rx subcutaneous pen injector .COMPLEX #6 mL (Trulicity) famotidine 40 mg tablet See Rx Instructions .Route 08/05/22 08/15/22 08/12/22 20:00 Rx .COMPLEX #60 tabs metformin 850 mg tablet See Rx Instructions .Route 08/05/22 08/15/22 08/12/22 20:00 Rx .COMPLEX #90 tabs o2 at 3L per nasal cannula #1 ea 08/11/22 08/12/22 08/12/22 Rx Allergies Allergy/AdvReac Type Severity Reaction Status Date / Time lisinopril AdvReac Mild Coughing Verified 08/12/22 09:40 PFSH Acute PFSH: Medical History Controlled diabetes mellitus with hyperglycemia DDD (degenerative disc disease), lumbosacral Difficulty attaining erection 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 HTN (hypertension) Idiopathic gout, right ankle and foot Ischemic cardiomyopathy Mixed hyperlipidemia Nonischemic cardiomyopathy Nonrheumatic aortic (valve) stenosis Surgical History Aortic valve replaced History of cardiac pacemaker Hx of arthroscopy of left knee Hx of heart surgery 2017 aortic stenosis with valve replacement Hx of tooth extraction Family History Mother CAD (coronary artery disease) Brother Cancer Other Hypertension Denies family history of Diabetes Clotting disorder Dementia Chronic kidney disease (CKD) Suicide Anesthesia complication Bleeding disorder Lung disease Stroke Social History Smoking and tobacco status: never smoked Second hand smoke exposure: No Alcohol intake: current Alcohol intake frequency: holidays/special occasions only Adopted: No Caregiver/support person: Yes (spouse) Lives independently: Yes Household members: spouse and children Housing: House Marital status: Number of children: 3 Number of grandchildren: 3 Highest education level completed: 6th Grade service: No Current occupational status: disabled Pets and animals: Yes History of recent travel: No Current gender identity: Male Special pola needs: No Agree to transfusion: Yes Vitals/I&O/Wt Last Vital Signs Temp 97.8 F 08/15/22 07:23 Pulse 80 08/15/22 07:23 Resp 18 08/15/22 07:23 BP 145/87 08/15/22 07:23 Pulse Ox 93 08/15/22 07:23 O2 Del Method 08/15/22 07:23 Weight last 48 hrs Weight 248 lb Physical Exam Narrative: GENERAL: The patient is alert and oriented times three. Not in any acute distress. [] HEENT: No significant pallor, icterus or lymphadenopathy.Oral cavity: There are no mucous membrane lesions. NECK: Trachea appears to be central. No masses noted. No JVD or thyromegaly appreciated. RESPIRATORY: Chest is symmetrical. No intercostals muscle retraction or any accessory muscle activation. There is no chest wall tenderness. Breath sounds are heard bilaterally. No rales or rhonchi heard. No evidence of any consolidation. [] BREASTS: Deferred. [] HEART: The first heart sound is variable. Second heart sound is normal. No S3 or S4. Short systolic murmur in the left sternal border. No diastolic murmurs.. No pericardial rub ABDOMEN: No vessel pulsations or distention. No tenderness. No organomegaly hope reciated. Bowel sounds are normally heard. [] : Deferred. [] RECTAL: Deferred. [] LYMPHATIC: No lymphadenopathy noted in the neck. EXTREMITIES: 2+ edema both lower extremities. No cyanosis. MUSCULOSKELETAL: No acute joint deformities or swelling SKIN: There are no significant rashes or ecchymosis NEUROPSYCHIATRIC: The patient is alert and oriented x3. Appears to be in a good mood. No tremors or rigidity noted. [] A&P Assessment and plan (1) Elective replacement indicated for cardiac pacemaker battery at end of lifespan: The patient was found to have normally functioning leads. The device has ALYX. For further management of his condition, he requires a pacemaker revision. Because of the anemia, he carries a high risk for pocket infection. We might be using the antibiotic pouch (2) Mixed hyperlipidemia: We will continue on the current medications (3) Controlled diabetes mellitus with hyperglycemia: The blood sugar seems to be under control Qualifiers: Diabetes mellitus type: type 2 Diabetes mellitus intermediate manager insulin use: without detention use Qualified Code(s): E11.65 - Type 2 diabetes mellitus with hyperglycemia (4) HTN (hypertension): Qualifiers: Hypertension type: essential hypertension Qualified Code(s): I10 - Essential (primary) hypertension (5) Aortic valve replaced: THe valve function appears to be appropriate (6) Nonischemic cardiomyopathy: No evidence of decompensation Plan I discussed with the patient the risk of bleeding, hematoma, vascular injury, infection and other concomitant complications were explained in detail. The patient. Understood this well and consented to proceed. Understood this well and consented to proceed. Attestations Medical Necessity Statement*: Patient will be kept overnight for IV antibiotics and monitoring Coding Level of Care Code Acute Cancellation Clerk for Chg Fwd History Expanded Problem Focused Medical Decision Making Moderate Complexity Diagnoses Elective replacement indicated for cardiac pacemaker battery at end of lifespan Z45.010 Mixed hyperlipidemia E78.2 Controlled diabetes mellitus with hyperglycemia E11.65 Diabetes mellitus type: type 2 Diabetes mellitus detention insulin use: without detention use HTN (hypertension) I10 Hypertension type: essential hypertension Aortic valve replaced Z95.2 Nonischemic cardiomyopathy I42.8
--- NOTE | 2022-08-15 07:49 | W.PM.OPSUD ---
Surgery/Procedure H&P Update DATE OF PROCEDURE: August 15, 2022 DATE H&P PERFORMED: 08/15/22 H&P UPDATE INFORMATION: I have reviewed H&P completed within last 30 days and I have examined patient prior to procedure PREOP DIAGNOSIS: pacemaker ALYX PRIMARY INDICATION FOR PROCEDURE: symptomatic bradycardia, pacemaker ALYX PLANNED PROCEDURE: Operation Date: 08/15/22 08:30 Proposed Procedures p 18000 Dual Pacemaker Generator Exchange Z45.010,Z95.0,I50.20,I42.8(Not Applicable) - Honorio Scott MD PATIENT REASSESSED PRIOR TO SEDATION, WITH NO CHANGE NOTED: Yes PHYSICAL EXAM: alert, oriented x 3, clear to auscultation bilaterally and regular rate & rhythm AIRWAY EVAL/ANESTHESIA PLAN: normal airway, see other exam findings and ASA III
--- NOTE | 2022-08-15 09:12 | P.OP_ITS ---
Operative Report Date of procedure: August 15, 2022 Pre-op diagnosis: Preop Diagnosis pacemaker ALYX Procedure: PROCEDURE: PACEMAKER REVISION PREOPERATIVE DIAGNOSIS: Pacemaker elective replacement indication. POSTOPERATIVE DIAGNOSIS: Pacemaker elective replacement indication. ESTIMATED BLOOD LOSS: 5 cc COMPLICATIONS: None. BRIEF HISTORY: The patient is asked to 67-year-old white male who had a permanent pacemaker implantation for symptomatic bradycardia/intermittent atrial fibrillation. The patient was found to have elective replacement indication, during routine office followup evaluation. For further management of patient's condition for the [symptomatic bradycardia], the patient required a pacemaker revision. The procedure was explained to the patient and his in detail with the risks and benefits. The risks of bleeding, hematoma, vascular injury, infection and other concomitant complications were explained in detail, which the patient understood well and consented to proceed. PROCEDURES PERFORMED: 1. Explantation of the old pacemaker generator. 2. Implantation of the new generator. The patient brought to the Cardiac Operator Helper. The left side of the neck and the subclavian area were cleaned and draped in a sterile fashion. 1% Xylocaine was used for local anesthetic agent. A 2 inch long incision was made just below the previous pacemaker scar. By sharp and blunt dissection, the pacemaker pocket was accessed. The old generator was delivered from the pocket. The generator was detached from the leads. The new [employer] generator was attached to the leads The pacemaker pocket was copiously irrigated with vancomycin solution. Complete hemostasis was achieved. The lead was positioned behind the generator and the generator was placed in an antibiotic pouch( TYRX). Sponge counts were confirmed. The pacemaker pocket was closed in layers. Skin was approximated using 4-0 Vicryl. EXPLANTED DEVICE: Pacemaker Generator: Brand:[email or web address] BIRGIT YEE IS-1. Model number: L111. Serial number: [id number] Date of implant: 08/29/2017 Make-[employer] IMPLANTED DEVICES: Ventricular Lead: Date of implantation: 08/29/2017 Model number: Ingevity MRI [id number] Serial number: [id number] Make: [employer]. Atrial lead Date of implantation: 08/29/2017 Model number: Ingevity MRI 7740 Serial number: [id number] Make: [employer] Implanted Generator: Date of implantation : 08/15/2022 Brand: Devorah VILLEGAS DR. Model number: L131 Serial number: [id number] Make: [employer] TYRX pouch lot#[id number] Expiration date-03/19/2023 Stimulation Threshold: The ventricular sensing was noted obtained because of the pacer dependency . Lead impedance was 565 and the pacing threshold was 1.1 volts at 0.4 milliseconds. The atrial sensing was 1.1 mV. The pacing threshold was not obtained because of the atrial fibrillation. Lead impedance was 612 ohms The pacemaker was set for DDD mode with an upper rate of [130] and a lower rate of [70]. The mode switch was turned on. A pressure dressing was applied over the pacemaker site. The patient was transferred back to medical floor in stable condition. Sponge counts were correct.
[2022-08-15] MEDS: potassium chloride ER 20 mEq Tablet PO ×2 (10:26→17:42)
[2022-08-15] MEDS: FUROsemide 20 mg Tablet PO (10:26)
[2022-08-15] MEDS: metoprolol succinate ER (24 HR) 100 mg Tablet PO (10:26)
[2022-08-15] MEDS: amlodipine 5 mg Tablet PO (10:27)
[2022-08-15] MEDS: diphenoxylate/atropine Tablet 1 TAB PO ×2 (10:27→18:43)
[2022-08-15] MEDS: famotidine 20 mg Tablet 40 MG PO ×2 (10:28→17:41)
[2022-08-15] MEDS: ondansetron 4 MG Tablet 8 MG PO ×2 (10:28→17:42)
[2022-08-15] MEDS: metformin 850 mg Tablet PO (10:55)
--- NOTE | 2022-08-15 11:54 | PC.CHAP ---
Pastoral Care Encounter/Spiritual Assessment Type of Contact [] Declined rig hand visit [] Patient/Family/Request visit [] Outpatient visit [] Follow-up visit [] Physician referral [] Code/Alert [x] Routine visit [] Staff referral [] Actively dying [] Patient sleeping [] Family support [] [] Out of room [] Palliative care [] [] Receiving care in room [] Pre-surgical visit [] Trauma [] Long length of stay [] ICU visit [] Other: Relational/Emotional Strength [x] Patient feels connected with others/family/visitors/staff [] Distress [] Loneliness/isolation [] Abandonment Spirituality of Patient [x] Person of Karla x[] Attends Yarsanism of their Karla [x] Believes in Prayer [] Reads Bible or Gnosticism materials [] There are Spiritual issues to be addressed Banking Specialist Interventions [x] Prayer [x] Active listening [x] Non-anxious presence [x] Spiritual/emotional support [] Crisis/trauma care [] Spiritual counseling [] Bereavement support [] Provided bereavement packet [] Provided Bible/devotional materials [] Provided toy/stuffed animal, coloring book to patient or family member [] Provided Communion [] Anointing/[place] [] Salvation [x] Completed spiritual assessment [] Other: Impact on Illness or Injury [] Angry [] Fearful [] Anxious [] Often cries [] Exhaustion [] Unable to work [] Unable to attend evangelical [] Unable to walk/stand [] Unable to read [] Unable to drive [] Unable to eat/drink [] Unable to sleep [] Unable to be with family [] Patient intubated [] Other: Summary Time spent with patient 15 min
[2022-08-15] MEDS: pregabalin 50 mg Capsule 100 MG PO ×2 (15:27→20:25)
[2022-08-15] MEDS: ceFAZolin 2,000 MG in sodium chloride 0.9% (plus) 50 ML 100 MG IV ×2 (15:29→22:13)
[2022-08-15] MEDS: duloxetine 20 mg Capsule PO (17:41)
[2022-08-15] MEDS: sacubitril/valsartan 24-26 mg Tablet 1 EACH PO (17:41)
[2022-08-16] VITALS (9 sets, daily range): BP systolic 102–146; BP diastolic 59–89; PULSE 70–74; RESP 18–28; TEMP 36.3–38.2; O2SAT 91–99
[2022-08-16] MEDS: diphenoxylate/atropine Tablet 1 TAB PO (01:08)
[2022-08-16] MEDS: ondansetron 4 MG Tablet 8 MG PO (01:08)
[2022-08-16] MEDS: FUROsemide 10 mg/mL SDV 4mL 40 MG IVP ×2 (04:19→05:31)
--- NOTE | 2022-08-16 06:14 | ECG_ITS ---
[facility] Test Date: 2022-08-16 Pat Name: Pawan Marcum Department: Room: 101 Gender: Male Sheet Turner: : 1955 Requested By: Honorio Scott Order Number: [id number] Reading MD: Naman Pineda Measurements Intervals [place] Rate: 70 P: 0 HI: 0 QRS: -47 QRSD: 166 T: 127 QT: 442 QTc: 478 Interpretive Statements ELECTRONIC VENTRICULAR PACEMAKER ABNORMAL RHYTHM ECG INTERPRETATION BASED ON A DEFAULT AGE OF 40 YEARS No previous ECG available for comparison Electronically Signed On 08-17-2022 15:51:24 PYROMETER OPERATOR by Naman Pineda [email or web address]
[2022-08-16 06:23] LABS: Glucose Point of Care 155 mg/dL (70-110)
--- NOTE | 2022-08-16 07:03 | PC.NURSE ---
late entry, pt hypoxic this morning with increased O2 requiements and crackles noted, notified Dr Pineda and received order for IV lasix, called Dr Pineda again one hour after giving lasix to report pt still hypoxic and also had coughed up some blood, 2nd order given for IV lasix, O2 sat currently high 80's to low 90's on 6L O2
[2022-08-16] MEDS: ceFAZolin 2,000 MG in sodium chloride 0.9% (plus) 50 ML 100 MG IV (07:11)
[2022-08-16] MEDS: FUROsemide 20 mg Tablet PO (08:14)
[2022-08-16] MEDS: sacubitril/valsartan 24-26 mg Tablet 1 EACH PO ×2 (08:15→18:02)
[2022-08-16] MEDS: potassium chloride ER 20 mEq Tablet PO ×2 (08:15→18:05)
[2022-08-16] MEDS: metoprolol succinate ER (24 HR) 100 mg Tablet PO (08:16)
[2022-08-16] MEDS: famotidine 20 mg Tablet 40 MG PO ×2 (08:16→18:02)
[2022-08-16] MEDS: duloxetine 20 mg Capsule PO ×2 (08:16→18:04)
[2022-08-16] MEDS: pregabalin 50 mg Capsule 100 MG PO ×3 (08:17→20:09)
[2022-08-16] MEDS: allopurinol 100 mg Tablet 300 MG PO (08:18)
[2022-08-16] MEDS: atorvastatin 40 mg Tablet 20 MG PO (08:19)
[2022-08-16] MEDS: amlodipine 5 mg Tablet PO (08:19)
[2022-08-16] MEDS: metformin 850 mg Tablet PO (09:38)
--- NOTE | 2022-08-16 14:44 | P.PN_ITS ---
Subjective Subjective: Patient underwent a generator change out on August 15. Overnight he developed exacerbation of his heart failure with increasing oxygen requirements and audible rales on exam. He has responded to IV Lasix and is feeling better. He still is requiring 5 L nasal cannula his baseline is 3 L. His family is at the bedside. He denies any other complaints. Vitals/I&O/Wt Last Vital Signs Temp 100.8 F H 08/16/22 07:07 Pulse 73 08/16/22 12:14 Resp 21 H 08/16/22 12:14 BP 107/68 08/16/22 12:14 Pulse Ox 99 08/16/22 12:14 O2 Del Method 08/16/22 04:00 O2 Flow Rate 6 08/16/22 04:00 08/15/22 08/16/22 08/16/22 22:59 06:59 14:59 Intake Total 340 / 580 290 / 290 Output Total 250 / 250 450 / 700 200 / 200 Balance 90 / 330 -450 / -120 90 / 90 Weight last 48 hrs Weight 248 lb Physical Exam Const: COMMON NORMALS: no acute distress HENMT: COMMON NORMALS: normocephalic HEAD & SCALP: normocephalic Eye: COMMON NORMALS: Equal, round and reactive pupils present PUPIL: Yes Equal, round and reactive pupils present Resp: OTHER: Bibasilar crackles Cardio: COMMON NORMALS: regular rate RATE: regular rate Extremity: COMMON NORMALS: normal to inspection Skin: NARRATIVE SKIN EXAM: Left upper chest pacer incision site well approximated and dressed with no evidence of complication or compromise A&P Assessment and plan (1) Acute on chronic heart failure: Plan Patient's oxygen requirement is still elevated. He is responding to IV diuresis and his respirations are not as labored. On 5 L his O2 sat is 96%. Patient and family are agreeable to continue observation overnight and get an x-ray in the morning and reassess and determine whether it safe for discharge home tomorrow. Attestations Medical Necessity Statement*: Initially observation outpatient however due to acute on chronic systolic heart failure developing during his hospital stay patient remained in hospital for 2 midnights Coding Level of Care Code Acute Farm Loan Representative for Janelle Medina Diagnoses Acute on chronic heart failure I50.9
[2022-08-16 21:34] LABS: Glucose Point of Care 144 mg/dL (70-110)
[2022-08-17 00:15] VITALS: BP 103/73; PULSE 70; RESP 16; TEMP 37.1; O2SAT 91
[2022-08-17 04:05] VITALS: BP 105/73; PULSE 70; RESP 15; TEMP 35.8; O2SAT 93
[2022-08-17 06:00] VITALS: PULSE 70
--- NOTE | 2022-08-17 07:42 | XRR_ITS ---
PROCEDURE INFORMATION: Exam: XR Chest Exam date and time: 08/17/2022 8:09 AM Age: 67 years old Clinical indication: Shortness of breath; Prior surgery; Additional info: Dyspnea TECHNIQUE: Imaging protocol: Radiologic exam of the chest. Views: 2 views. COMPARISON: CR XR chest 1V portable [id number] 08/11/2022 2:49 PM FINDINGS: Tubes, catheters and devices: Cardiac rhythm maintenance device is in place. Lungs: Unremarkable. No consolidation. Pleural spaces: Unremarkable. No pleural effusion. No pneumothorax. Heart/Mediastinum: Prosthetic cardiac valve. Cardiomegaly. Bones/joints: Unremarkable. XR/XR chest 2V insp/exp [id number] IMPRESSION: No acute cardiopulmonary abnormality.
[2022-08-17] MEDS: atorvastatin 40 mg Tablet 20 MG PO (08:50)
[2022-08-17] MEDS: sacubitril/valsartan 24-26 mg Tablet 1 EACH PO (08:50)
[2022-08-17] MEDS: metoprolol succinate ER (24 HR) 100 mg Tablet PO (08:51)
[2022-08-17] MEDS: FUROsemide 20 mg Tablet PO (08:51)
[2022-08-17] MEDS: duloxetine 20 mg Capsule PO (08:51)
[2022-08-17] MEDS: potassium chloride ER 20 mEq Tablet PO (08:51)
[2022-08-17] MEDS: diphenoxylate/atropine Tablet 1 TAB PO (08:51)
[2022-08-17] MEDS: ondansetron 4 MG Tablet 8 MG PO (08:51)
[2022-08-17] MEDS: pregabalin 50 mg Capsule 100 MG PO (08:51)
[2022-08-17] MEDS: metformin 850 mg Tablet PO (08:51)
[2022-08-17] MEDS: amlodipine 5 mg Tablet PO (08:51)
[2022-08-17] MEDS: famotidine 20 mg Tablet 40 MG PO (08:51)
[2022-08-17] MEDS: allopurinol 100 mg Tablet 300 MG PO (08:51)
[2022-08-17 09:02] VITALS: BP 118/78; PULSE 70; RESP 17; O2SAT 92
[2022-08-17 11:23] VITALS: BP 107/66; PULSE 70; RESP 19; O2SAT 91
--- NOTE | 2022-08-17 12:07 | P.DS_ITS ---
Discharge Providers Date of Admission: 08/15/22 09:15 Date of Discharge: August 17, 2022 Attending Provider at Admission: Honorio Scott MD Attending Provider at Discharge: Honorio Scott MD Primary Care Provider: Diana Butcher MD Diagnoses at Discharge Discharge Diagnosis (1) Acute on chronic heart failure: Details from hospital stay: Patient underwent pacemaker generator change out. During his hospital stay he developed acute on chronic heart failure and remained in the hospital for an extra overnight stay. He was diuresed effectively and discharged home in stable condition. Status: Acute Reason for Visit Reason for Visit: Z45.010 Hospital Course Hospital Course As detailed above Physical Exam Const: COMMON NORMALS: no acute distress Chest: OTHER: Left upper chest incision site dressed well approximated no evidence of complication or compromise Resp: OTHER: On chronic supplemental O2 back down to normal baseline 3 L/min Cardio: COMMON NORMALS: regular rate RATE: regular rate Extremity: NARRATIVE EXTREMITY EXAM: Mild lower extremity edema Neuro: OTHER: No focal deficits Psych: OTHER: Normal affect Skin: OTHER: As described above Discharge Data Studies Completed and Pending Completed Studies During Hospitalization Category Date Time Status OCCUPATIONAL HEALTH PHYSICIAN request for service Routine Exams 08/15/22 06:00 Completed CXRIE [XR chest 2V insp/exp 52691] Routine Exams 08/17/22 07:42 Completed Radiology Impressions Chest X-Ray 08/17/22 07:42 IMPRESSION: No acute cardiopulmonary abnormality. Laboratory Results POC Glucose 144 mg/dL (70-110) H 08/16/22 21:30 Vitals Last Vital Signs Temp 96.5 F L 08/17/22 04:05 Pulse 70 08/17/22 11:23 Resp 19 H 08/17/22 11:23 BP 107/66 08/17/22 11:23 Pulse Ox 91 08/17/22 11:23 O2 Del Method 08/16/22 19:27 O2 Flow Rate 4 08/16/22 19:27 Discharge Plan Discharge Patient Disposition: Home Condition: Stable Prescriptions: New cephalexin 500 mg capsule 500 mg PO Q6H 5 Days Qty: 20 0RF multivitamin Tablet 1 tab PO DAILY 14 Days Qty: 14 0RF Continued (DME) diabetic shoes with inserts See Rx Instructions .Route .MEDSUPPLY Qty: 1 0RF Rx Instructions: As directed (DME) Diabetic shoes with inserts See Rx Instructions .Route .MEDSUPPLY Qty: 1 0RF Rx Instructions: As directed ondansetron HCl 8 mg tablet 8 mg PO Q8H Qty: 20 0RF diphenoxylate-atropine [Lomotil] 2.5-0.025 mg tablet 1 tab PO Q8H Qty: 30 0RF metolazone 2.5 mg tablet 2.5 mg PO .qod metoprolol succinate 100 mg tablet extended release 24 hr 100 mg PO DAILY Qty: 90 3RF (DME) o2 at 3L per nasal cannula See Rx Instructions .Route .MEDSUPPLY Qty: 1 0RF Rx Instructions: Room air O2 sats were 83. After 3L O2 went up to 90's however when walking still at 89 on 3 L O2. atorvastatin 20 mg tablet See Rx Instructions .ROUTE .COMPLEX Qty: 90 2RF Dose Instruction: TAKE ONE TABLET BY MOUTH DAILY Rx Instructions: TAKE ONE TABLET BY MOUTH DAILY furosemide 20 mg tablet 20 mg PO DAILY Qty: 90 3RF pregabalin 100 mg capsule 100 mg PO TID Qty: 90 2RF Eliquis 5 mg tablet See Rx Instructions .ROUTE .COMPLEX Qty: 60 6RF Dose Instruction: TAKE ONE TABLET BY MOUTH TWICE DAILY Rx Instructions: TAKE ONE TABLET BY MOUTH TWICE DAILY fenofibrate 160 mg tablet See Rx Instructions .ROUTE .COMPLEX Qty: 30 6RF Dose Instruction: TAKE ONE TABLET BY MOUTH EVERY DAY Rx Instructions: TAKE ONE TABLET BY MOUTH EVERY DAY allopurinol 300 mg tablet See Rx Instructions .ROUTE .COMPLEX Qty: 30 6RF Dose Instruction: TAKE ONE TABLET BY MOUTH DAILY Rx Instructions: TAKE ONE TABLET BY MOUTH DAILY (DME) Blood pressure cuff and machine See Rx Instructions .Route .MEDSUPPLY Qty: 1 0RF Rx Instructions: As directed duloxetine 20 mg capsule,delayed release(DR/EC) See Rx Instructions .ROUTE .COMPLEX Qty: 60 3RF Dose Instruction: TAKE ONE CAPSULE BY MOUTH TWICE DAILY Rx Instructions: TAKE ONE CAPSULE BY MOUTH TWICE DAILY acetaminophen-codeine 300-60 mg tablet 1 tab PO Q8H Qty: 90 0RF tadalafil 20 mg tablet See Rx Instructions .ROUTE .COMPLEX Qty: 30 2RF Dose Instruction: TAKE ONE TABLET BY MOUTH ONCE NEEDED FOR sexual activity, administer approximately 30 minutes BEFORE activity, max ONE tablet in 24 HOURS Rx Instructions: TAKE ONE TABLET BY MOUTH ONCE NEEDED FOR sexual activity, administer approximately 30 minutes BEFORE activity, max ONE tablet in 24 HOURS Entresto 97-103 mg tablet See Rx Instructions .ROUTE .COMPLEX Qty: 180 3RF Dose Instruction: TAKE ONE TABLET BY MOUTH TWICE DAILY Rx Instructions: TAKE ONE TABLET BY MOUTH TWICE DAILY famotidine 40 mg tablet See Rx Instructions .ROUTE .COMPLEX Qty: 60 2RF Dose Instruction: TAKE ONE TABLET BY MOUTH TWICE DAILY Rx Instructions: TAKE ONE TABLET BY MOUTH TWICE DAILY Trulicity 0.75 mg/0.5 mL pen injector See Rx Instructions .ROUTE .COMPLEX Qty: 6 2RF Dose Instruction: inject 0.75mg SUBCUTANEOUSLY ONCE WEEKLY Rx Instructions: inject 0.75mg SUBCUTANEOUSLY ONCE WEEKLY ON TUESDAYS metformin 850 mg tablet See Rx Instructions .ROUTE .COMPLEX Qty: 90 2RF Dose Instruction: TAKE ONE TABLET BY MOUTH DAILY Rx Instructions: TAKE ONE TABLET BY MOUTH DAILY amlodipine 5 mg tablet See Rx Instructions .ROUTE .COMPLEX Qty: 90 2RF Dose Instruction: TAKE ONE TABLET BY MOUTH EVERY DAY Rx Instructions: TAKE ONE TABLET BY MOUTH EVERY DAY No Action potassium chloride 20 mEq tablet,ER particles/crystals 20 meq PO DAILY Discharge Orders: Discharge Order (Routine); Ordered 08/17/22 Ordered By: Naman Pineda Discharge Diet: Cardiac Discharge Activity: Limit activity as instructed Patient Instructions: Opioid Safety, Post Pacemaker - Tyler Activity Restrictions/Additional Instructions: Limit the movements of the left shoulder to 45 degree for the next 10 days May use the shoulder sling as instructed Avoid any weightbearing in the left elbow for the next 10 days Appointment the [facility] 1 week with a nurse practitioner for a wound check and pacemaker check Restart the Eliquis on Thursday morning Take the antibiotic for 5 days as prescribed, along with a multivitamin Discharge Attestations Time Spent in Discharge Care*: less than 30 min Quality Metrics Clinical Quality Measures [ No reported AMI, CVA or VTE this stay] Coding Level of Care Code Acute Chg FW JOSE MARIA note Diagnoses Acute on chronic heart failure I50.9
[2022-08-17 13:02] VITALS: BP 107/66; PULSE 70; RESP 19; O2SAT 91
--- NOTE | 2022-08-17 13:55 | PC.NURSE ---
patient discharged to home with significant other at side. Left by private vehicle. Instruction provided regarding pacemaker site care, new medications and follow up appointments. Patient verbalized complete understanding. Appointment request faxed to [facility].
== END 2022-08-17 13:58 | disposition home or self-care (01) ==
LOC: CSU 09:24
PROVIDERS: Admitting Provider Internal Medicine Cardiovascular Disease; PCP Family Medicine; Visit Provider Internal Medicine Cardiovascular Disease
DX: Z45.010 Encounter for checking and testing of cardiac pacemaker pulse generator [battery] (principal); E78.2 Mixed hyperlipidemia; E11.65 Type 2 diabetes mellitus with hyperglycemia; I11.0 Hypertensive heart disease with heart failure; I50.9 Heart failure, unspecified; I42.8 Other cardiomyopathies
CPT/HCPCS: 33213; 36415; 36416; 71046; 82962; 93005; 96365; 96367; 97165; 99152; 99153; A4216; A4565; C1769; C1785; G0378; J0690; J1940; J2250; J3010; J3370; J7030; J7050; Q0162

== ENCOUNTER → 2022-09-02 11:07 | Outpatient (BNVA) | payer MEDICARE, MEDICAID, SELFPAY | PROVIDERS: PCP Family Medicine; Visit Provider Internal Medicine Cardiovascular Disease | DX: I50.20 Unspecified systolic (congestive) heart failure (principal); I35.0 Nonrheumatic aortic (valve) stenosis; Z95.0 Presence of cardiac pacemaker | CPT/HCPCS: 99213 ==

== ENCOUNTER 2022-09-09 16:27 | Observation (INO) | payer MEDICARE, MEDICAID, SELFPAY ==
[2022-09-09] VITALS (8 sets, daily range): BP systolic 108–147; BP diastolic 54–92; PULSE 63–75; RESP 15–18; TEMP 36.6–36.8; O2SAT 90–98; BMI 36.6
--- NOTE | 2022-09-09 16:42 | ECG_ITS ---
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 Measurements Intervals [place] Rate: 70 P: 162 KS: 216 QRS: -54 QRSD: 182 T: 127 QT: 473 QTc: 511 Interpretive Statements ELECTRONIC VENTRICULAR PACEMAKER Compared to ECG 08/16/2022 06:14:26 No significant changes Electronically Signed On 09-10-2022 8:13:[address] COUNSELLOR by Sagar Newell M.D. [id number]
--- NOTE | 2022-09-09 17:36 | ED_ITS ---
HPI - General Adult General: Chief complaint: Shortness of Breath/Dyspnea Stated complaint: O2 low Time Seen by Provider: 09/09/22 16:49 History of Present Illness: 67-year-old male presents emergency room with petechiae in his lower extremities and abdomen. He seen Dr. Payne yesterday has a fairly significant macrocytic anemia. This been an ongoing issue according to Dr. Payne's note there is concern of nonimmune intravascular hemolysis because his haptoglobin level was low. Other anemia work-up was ordered yesterday when he seen Dr. Barby Payne and his hemoglobin on yesterday's blood draw was 6.7 he is chronically on oxygen for congestive heart failure he is not in decompensated heart failure at this time but has had increase his oxygen slightly at home and he is noticing increasing shortness of breath with minimal exertion worse than his usual baseline. He was directed here for blood transfusion. Report from the doctor's office that at Dr. Payne's office oxygen sat was 86% on room air. He arrives here on 4 L he usually is on 3 L at home is titrated down to 2 and remained 97 to 99% Onset (ago): week(s) Location: lower extremity Severity: mild Pain Consistency: constant Relieving factors: none Associated symptoms: Deny chest pain, confusion, cough, diaphoresis, decreased appetite, dyspnea, fevers/chills, headache(s), malaise, nausea, rash, palpitations, seizures, short of breath, syncope, vomiting or weakness Treatments prior to arrival: none Review of Systems Const: Denies: fever(s), chills, fatigue, malaise or diaphoresis ENMT: Denies: throat pain, ear or mastoid pain, nasal discharge or nasal congestion Card: Denies: chest pain, palpitations or syncope Resp: Denies: dyspnea GI: Denies: nausea or vomiting : Denies: flank pain, dysuria, urinary frequency or urinary urgency Skin/Breast: Denies: rash Neuro: Denies: headache(s) or confusion PFS ED PFSH: Medical History Acute and chronic respiratory failure with hypoxia Anemia Chronic kidney disease DDD (degenerative disc disease), lumbosacral Erectile dysfunction HTN (hypertension) Idiopathic gout, right ankle and foot Mixed hyperlipidemia Nonischemic cardiomyopathy Nonrheumatic aortic (valve) stenosis Pneumonia Type 2 diabetes mellitus Surgical History History of cardiac pacemaker Hx of arthroscopy of left knee Hx of heart surgery (2017) Aortic valve replacement and aneurysm repair Hx of tooth extraction Family History Mother CAD (coronary artery disease) Brother Cancer Other Hypertension Denies family history of Diabetes Clotting disorder Dementia Chronic kidney disease (CKD) Suicide Anesthesia complication Bleeding disorder Lung disease Stroke Social History Smoking and tobacco status: never smoked Second hand smoke exposure: No Alcohol intake: current Alcohol intake frequency: holidays/special occasions only Adopted: No Caregiver/support person: Yes (spouse) Lives independently: Yes Household members: spouse and children Housing: House Marital status: Number of children: 3 Number of grandchildren: 3 Highest education level completed: 6th Grade service: No Current occupational status: disabled Pets and animals: Yes History of recent travel: No Current gender identity: Male Special pola needs: No Agree to transfusion: Yes Physical Exam Const: GENERAL APPEARANCE: cooperative and comfortable ORIENTATION/CONSCIOUSNESS: Yes awake, Yes oriented to person, Yes oriented to place and Yes oriented to time HENMT: COMMON NORMALS: normocephalic, atraumatic and hearing grossly normal bilaterally HEAD & SCALP: normocephalic and atraumatic Resp: COMMON NORMALS: normal respiratory effort, No retractions, No use of accessory muscles and clear to auscultation bilaterally AUSCULTATION: clear to auscultation bilaterally Cardio: COMMON NORMALS: regular rate, regular rhythm and No murmurs present (Cardio) RATE: regular rate RHYTHM: regular rhythm GI: COMMON NORMALS: Soft to palpation and No hepatosplenomegaly present AUSCULTATION: Yes normoactive bowel sounds PALPATION: Yes Soft to palpation, No Tenderness to palpation present (GI), No Guarding due to palpation present (GI) and Yes No hepatosplenomegaly present Extremity: COMMON NORMALS: normal to inspection, capillary refill normal, no clubbing, cyanosis or edema, no calf tenderness and no pedal edema Neuro: SENSORIUM/ORIENTATION: Yes oriented to person, Yes oriented to place and Yes oriented to time Skin: COMMON NORMALS: no rashes or lesions noted GENERAL SKIN EXAM: no rashes or lesions noted Course Vital Signs: Vital signs: Vital Signs Temperature 97.6 F 09/10/22 16:57 Pulse Rate 70 09/10/22 16:57 Respiratory Rate 18 09/10/22 16:57 Blood Pressure 102/61 09/10/22 16:57 Pulse Oximetry 93 09/10/22 16:57 Oxygen Delivery Me thod 09/10/22 16:00 Oxygen Flow Rate 5 09/10/22 08:36 MDM - General Adult Medical Decision Making Symptomatic anemia. Will admit discussed with hospitalist placed in observation. He has acute on chronic respiratory failure with mild pneumonia and exacerbation of COPD. Medical Records I reviewed the patient's medical records. Lab Data I reviewed the patient's lab results. 09/10/22 15:23 09/10/22 05:12 Radiology Impressions Chest X-Ray 09/09/22 18:14 IMPRESSION: Infiltrates in the [id number]-csnp-left lung base, suspicious for possible pneumonia. Correlate clinically. Laboratory Results Blood Type O Positive 09/09/22 17:00 Rho(D) Type Positive 09/09/22 17:00 Antibody Screen Negative 09/09/22 17:00 REMI, IgG Interpret Negative 09/09/22 17:00 REMI, Poly Interpret Negative 09/09/22 17:00 REMI, Complement Interp Negative 09/09/22 17:00 Crossmatch See Detail 09/09/22 17:00 Discharge Plan Discharge Patient Disposition: Placed in Observation Admit Provider: Riddhi Harris Clinical Impression: Acute and chronic respiratory failure with hypoxia, Ischemic cardiomyopathy, Systolic congestive heart failure with reduced left ventricular function, NYHA class 4, Community acquired pneumonia Coding Level of Care Code ED Model Home Sales Greeter for Janelle Medina
--- NOTE | 2022-09-09 18:01 | P.HP_ITS ---
Providers/Chief Complaint Admitting Physician: Riddhi Harris MD Primary Care Provider: Diana Butcher MD Chief Complaint: O2 low History of Present Illness Pawan Marcum is a 67 year old male who has been evaluated by Dr. Payne for macrocytic anemia present to the hospital from his PCP clinic when hemoglobin was below 7. He has not noticed any GI bleed complete any GI endoscopy work-up. For last couple of days he has been experiencing cough which is bothering his sleep cycle. He has not noticed any fever, COVID-negative. He has not noticed chest pain however shortness of breath is evident on exertion. He uses 3 L of oxygen which he bumped up to 4 L at home because of shortness of breath. In the ER no evidence of active GI bleed he is hemodynamically stable, he was given 1 unit PRBC. Which showed possible right-sided pneumonia start him on Lasix and Levaquin Review of Systems Const: Reports: chills; Denies: fever(s) Eyes: Denies: change in vision ENMT: Denies: throat pain Card: Denies: chest pain Resp: Reports: dyspnea GI: Denies: abdominal pain : Denies: flank pain Musc: Denies: neck pain Skin/Breast: Denies: rash Neuro: Denies: headache(s) Psych: Reports: anxiety Endo: Denies: polyuria Torres/Lymph: Denies: easy bruising All/Imm: Denies: urticaria Medications/Allergies Home Medications Medication Instructions Recorded Confirmed Last Taken Type diabetic shoes with inserts #1 ea 02/28/21 09/09/22 08/12/22 Rx atorvastatin 20 mg tablet See Rx Instructions .Route 10/25/21 09/09/22 09/09/22 Rx .COMPLEX #90 tabs Diabetic shoes with inserts #1 ea 12/05/21 09/09/22 08/12/22 Rx furosemide 20 mg tablet 20 mg PO DAILY edema #90 tabs 02/18/22 09/09/22 09/09/22 Rx pregabalin 100 mg capsule 100 mg PO TID #90 caps 04/21/22 09/09/22 09/09/22 Rx allopurinol 300 mg tablet See Rx Instructions .Route 06/04/22 09/09/22 09/09/22 Rx .COMPLEX #30 tabs apixaban 5 mg tablet (Eliquis) See Rx Instructions .Route 06/04/22 09/09/22 09/09/22 09:00 Rx .COMPLEX #60 tabs fenofibrate 160 mg tablet See Rx Instructions .Route 06/04/22 09/10/22 09/09/22 09:00 Rx .COMPLEX #30 tabs metolazone 2.5 mg tablet 2.5 mg PO .qod 06/18/22 09/09/22 08/12/22 20:00 History metoprolol succinate 100 mg 100 mg PO DAILY #90 tabs 06/18/22 09/09/22 09/09/22 Rx tablet,extended release 24 hr Blood pressure cuff and machine #1 ea 06/27/22 09/09/22 08/12/22 Rx duloxetine 20 mg capsule,delayed See Rx Instructions .Route 07/01/22 09/09/22 09/09/22 Rx release .COMPLEX #60 caps tadalafil 20 mg tablet See Rx Instructions .Route 07/10/22 09/09/22 08/12/22 20:00 Rx .COMPLEX #30 tabs sacubitril 97 mg-valsartan 103 mg See Rx Instructions .Route 07/28/22 09/09/22 09/09/22 Rx tablet (Entresto) .COMPLEX #180 tabs amlodipine 5 mg tablet See Rx Instructions .Route 08/05/22 09/09/22 09/09/22 Rx .COMPLEX #90 tabs dulaglutide 0.75 mg/0.5 mL See Rx Instructions .Route 08/05/22 09/09/22 09/09/22 Rx subcutaneous pen injector .COMPLEX #6 mL (Trulicity) metformin 850 mg tablet See Rx Instructions .Route 08/05/22 09/09/22 09/09/22 Rx .COMPLEX #90 tabs o2 at 3L per nasal cannula #1 ea 08/11/22 09/09/22 08/12/22 Rx potassium chloride 20 mEq 20 meq PO DAILY 08/17/22 09/09/22 09/09/22 History tablet,extended release(part/cryst) diphenoxylate-atropine 2.5 1 tab PO Q8H #60 tabs 09/05/22 09/09/22 Unknown Rx mg-0.025 mg tablet ondansetron HCl 8 mg tablet See Rx Instructions .Route 09/05/22 09/09/22 09/09/22 Rx .COMPLEX #20 tabs acetaminophen 300 mg-codeine 60 mg 1 tab PO Q8H PRN Pain 09/08/22 09/09/22 Unknown History tablet famotidine 40 mg tablet See Rx Instructions .Route 09/09/22 09/09/22 Unknown History .COMPLEX PRN Acid Reflux Allergies Allergy/AdvReac Type Severity Reaction Status Date / Time lisinopril AdvReac Mild Coughing Verified 09/09/22 15:04 PFSH Acute PFSH: Medical History Chronic kidney disease DDD (degenerative disc disease), lumbosacral Erectile dysfunction HTN (hypertension) Idiopathic gout, right ankle and foot Mixed hyperlipidemia Nonischemic cardiomyopathy Nonrheumatic aortic (valve) stenosis Type 2 diabetes mellitus Surgical History History of cardiac pacemaker Hx of arthroscopy of left knee Hx of heart surgery (2017) Aortic valve replacement and aneurysm repair Hx of tooth extraction Family History Mother CAD (coronary artery disease) Brother Cancer Other Hypertension Denies family history of Diabetes Clotting disorder Dementia Chronic kidney disease (CKD) Suicide Anesthesia complication Bleeding disorder Lung disease Stroke Social History Smoking and tobacco status: never smoked Second hand smoke exposure: No Alcohol intake: current Alcohol intake frequency: holidays/special occasions only Adopted: No Caregiver/support person: Yes (spouse) Lives independently: Yes Household members: spouse and children Housing: House Marital status: Number of children: 3 Number of grandchildren: 3 Highest education level completed: 6th Grade service: No Current occupational status: disabled Pets and animals: Yes History of recent travel: No Current gender identity: Male Special pola needs: No Agree to transfusion: Yes Vitals/I&O/Wt Last Vital Signs Temp 97.9 F 09/09/22 16:35 Pulse 75 09/09/22 16:35 Resp 18 09/09/22 16:35 BP 133/77 09/09/22 16:35 Pulse Ox 95 09/09/22 16:35 O2 Del Method 09/09/22 16:35 O2 Flow Rate 4 09/09/22 16:35 Weight last 48 hrs Weight 112.491 kg Physical Exam Narrative: Pleasant cooperative male Currently on 4 L nasal cannula Mild signs of fluid overload Awake and alert, nonfocal neuro exam Pleasant and cooperative EOMI, PERRLA Abdomen soft No acute respiratory distress Data 09/10/22 05:12 09/10/22 05:12 A&P Assessment and plan (1) Acute and chronic respiratory failure with hypoxia: (2) Anemia: (3) Pneumonia: Plan Acute on chronic microcytic anemia He will get 1 unit PRBC Symptomatic anemia Work-up has been initiated with Dr. Payne including multiple myeloma Aortic valve replacement, on Eliquis for A. fib Autoimmune work-up unremarkable Acute on chronic hypoxic Right-sided community-acquired pneumonia Requiring 4 to 5 L of oxygen now He will get Lasix as well Full code Cardiac diet DVT prophylaxis contraindicated for now use SCDs Eliquis for his history of A. fib Attestations Medical Necessity Statement*: Hopefully we will discharge in the next 24 hours Time Spent in Patient Care: 30 Coding Level of Care Code Acute Environmental Health Technician for Janelle Fwvelma Diagnoses Acute and chronic respiratory failure with hypoxia J96.21 Anemia D64.9 Pneumonia J18.9
--- NOTE | 2022-09-09 18:14 | XRR_ITS ---
PROCEDURE INFORMATION: Exam: XR Chest Exam date and time: 09/09/2022 6:23 PM Age: 67 years old Clinical indication: Cough; Prior surgery; Surgery type: Pacemaker; Additional info: Hypoxia, low o2, persistent cough for 2 months, SOB TECHNIQUE: Imaging protocol: Radiologic exam of the chest. Views: 1 view. COMPARISON: CR (CHEST, ) 08/17/2022 8:09 AM FINDINGS: Tubes, catheters and devices: Stable left chest pacemaker. Lungs: Infiltrates are present in the mid to lower right lung and in the left lower lobe. Pleural spaces: Unremarkable. No pleural effusion. No pneumothorax. Heart/Mediastinum: Stable cardiomegaly. Stable previous valvular replacement changes. Bones/joints: Stable bones and prior sternotomy changes. XR/XR chest 1V portable [id number] IMPRESSION: Infiltrates in the mbolz-zubfugk-joxd-left lung base, suspicious for possible pneumonia. Correlate clinically.
[2022-09-09] MEDS: FUROsemide 10 mg/mL SDV 2mL 20 MG IVP (21:18)
[2022-09-09] MEDS: sodium chloride 0.9% (100 ml) 100 ML 125 ML (21:23)
[2022-09-10] VITALS (14 sets, daily range): BP systolic 100–133; BP diastolic 54–82; PULSE 62–84; RESP 15–24; TEMP 36.3–36.8; O2SAT 90–99
--- NOTE | 2022-09-10 04:25 | PC.NURSE ---
Notified by this nurse that the patient had decreased O2 level w/primary reading in the 50's. DIE CAST ENGINEER states that pt did not have his oxygen on. 02 titrated to 6 l/m pt O2 sat now >90% . Pt has continued to be A&O x 4 and answers questions appropriately. Pt was not tachycpnic or cyanotic. Pt teaching performed on the importance of keeping O2 in place. Pt stated he would try .
[2022-09-10 05:50] LABS: Basophils % 0.2 %; Eosinophils % 0.2 %; Hematocrit 23.5 % (42.0-52.0); Lymphocytes # 1.3 10^3/uL (0.8-4.8); Lymphocytes % 13.3 %; Mean Corpuscular HGB Conc 29.8 g/dL (30.0-36.0); Mean Corpuscular Volume 107.3 fl (80-94); Mean Platelet Volume 10.3 fL (7.4-10.4); Monocytes # 0.4 10^3/uL (0.2-0.9); Monocytes % 3.8 %; Neutrophils # 8.17 10^3/uL (1.8-7.7); Neutrophils % 81.3 %; Nucleated Red Blood Cells # 0.1 /100WBC; Nucleated Red Blood Cells % 0.7 %; Platelet Count 152 10^3/cmm (130-400); Red Blood Count 2.19 10^6/uL (4.1-5.3); Red Cell Distribution Width 19.9 % (12.1-15.1); White Blood Count 10.1 10^3/uL (4.0-10.0)
[2022-09-10 06:19] LABS: Anion Gap 11.4 (5-19); Blood Urea Nitrogen 41 mg/dL (8-23); Carbon Dioxide 24 mmol/L (22-29); Chloride 103 mmol/L (98-107); Glomerular Filtration Rate 33.7 mL/min (90-130); Glucose 123 mg/dL (65-115); Magnesium 1.8 mg/dL (1.7-2.3); Osmolality Calculated 289 mOsm/kg (285-295); Potassium 4.4 mmol/L (3.5-5.1); Sodium 134 mmol/L (136-145)
--- NOTE | 2022-09-10 07:06 | PC.NURSE ---
Referred pt to Dr. Matthews for review of Hemoglobin results. Awaiting orders.
[2022-09-10] MEDS: amlodipine 5 mg Tablet PO (08:35)
[2022-09-10] MEDS: FUROsemide 20 mg Tablet PO (08:35)
[2022-09-10] MEDS: metoprolol succinate ER (24 HR) 100 mg Tablet PO (08:35)
[2022-09-10] MEDS: levoFLOXacin 750 mg Tablet PO (08:35)
[2022-09-10] MEDS: allopurinol 300 mg Tablet PO (08:35)
[2022-09-10] MEDS: sennosides-docusate Tablet 1 TAB PO (08:35)
[2022-09-10] MEDS: pantoprazole 40 mg SDV IVP (08:36)
[2022-09-10 08:51] LABS: Hematocrit 22.8 % (42.0-52.0); Hemoglobin 7.1 g/dL (11.7-16.6)
--- NOTE | 2022-09-10 09:53 | PM.DCS ---
Discharge Providers Date of Admission: 09/09/22 17:52 Date of Discharge: September 10, 2022 Attending Provider at Admission: Riddhi Harris MD Attending Provider at Discharge: Riddhi Harris MD Primary Care Provider: Diana Butcher MD Diagnoses at Discharge Discharge Diagnosis (1) Acute and chronic respiratory failure with hypoxia: Status: Acute (2) Anemia: Status: Acute (3) Pneumonia: Status: Acute Reason for Visit Reason for Visit: O2 low Hospital Course Hospital Course 67-year-old male with history of macrocytic anemia currently undergoing evaluation by Dr. Payne, multiple myeloma work-up is requested, he was sent from the PCP clinic to the ER because of hemoglobin 6.7 in the ER he received 1 unit PRBC which showed inadequate improvement after 7.1, I request another unit of PRBC, he has already been tested for autoimmune hemolytic anemia, multiple myeloma, B12, iron panel has been requested. I have not repeated any work-up on this visit. Patient has not ANY bleeding. No recent colonoscopy. His haptoglobin is low, MCV 107, creatinine 2.0, calcium is around 8, high LDH, bilirubin normal, low iron level, low normal B12, normal TSH, total protein electrophoresis results are pending. Patient is stating that his oxygen requirement fluctuates between 3 to 5 L, he was discharged on 5 L when he recently had pacemaker placement in [place]. Chest x-ray showing vascular congestion with possible right-sided pneumonia he was started on levofloxacin. No significant leukocytosis he has remained afebrile. He has been coughing up green sputum requested sputum culture before discharge. Physical Exam Narrative: Awake and alert Signs of fluid overload petechial rash noted abdominal wall Nonpruritic Nonpalpable S1, S2 variable Abdomen distended nontender Lower extremity 1+ edema Currently on 5 L nasal cannula Crackles positive lung bases Discharge Data Studies Completed and Pending Completed Studies During Hospitalization Category Date Time Status XR chest 1V portable [id number] Routine Exams 09/09/22 18:14 Completed Pending at discharge Category Date Time Status COVID OZH [Coronavirus PCR] Routine Lab 09/10/22 08:40 Received Leukocyte Reduced RBC Stat Lab 09/09/22 17:00 Results Occult Blood Stool [Immunochemical Fecal OCB] Routine Lab 09/09/22 19:10 Uncollected Type and Screen Stat Lab 09/09/22 17:00 Results Radiology Impressions Chest X-Ray 09/09/22 18:14 IMPRESSION: Infiltrates in the ylmeu-uywpanr-pbbq-left lung base, suspicious for possible pneumonia. Correlate clinically. Laboratory Results WBC 10.1 10^3/uL (4.0-10.0) H 09/10/22 05:12 RBC 2.19 10^6/uL (4.1-5.3) L 09/10/22 05:12 Hgb 7.1 g/dL (11.7-16.6) L 09/10/22 07:46 Hct 22.8 % (42.0-52.0) L 09/10/22 07:46 MCV 107.3 fl (80-94) H 09/10/22 05:12 MCH 32.0 pg (28.0-34.0) 09/10/22 05:12 MCHC 29.8 g/dL (30.0-36.0) L 09/10/22 05:12 RDW 19.9 % (12.1-15.1) H 09/10/22 05:12 Plt Count 152 10^3/cmm (130-400) 09/10/22 05:12 MPV 10.3 fL (7.4-10.4) 09/10/22 05:12 Neut % (Auto) 81.3 % 09/10/22 05:12 Lymph % (Auto) 13.3 % 09/10/22 05:12 Humphreys % (Auto) 3.8 % 09/10/22 05:12 Eos % (Auto) 0.2 % 09/10/22 05:12 Baso % (Auto) 0.2 % 09/10/22 05:12 Neut # (Auto) 8.17 10^3/uL (1.8-7.7) H 09/10/22 05:12 Lymph # (Auto) 1.3 10^3/uL (0.8-4.8) 09/10/22 05:12 Humph[place]ys # (Auto) 0.4 10^3/uL (0.2-0.9) 09/10/22 05:12 Eos # (Auto) 0.0 10^3/uL (0.0-0.8) 09/10/22 05:12 Baso # (Auto) 0.0 10^3/uL (0.0-0.1) 09/10/22 05:12 Nucleated RBC % (auto) 0.7 % 09/10/22 05:12 Nucleated RBCs # 0.1 /100WBC 09/10/22 05:12 Sodium 134 mmol/L (136-145) L 09/10/22 05:12 Potassium 4.4 mmol/L (3.5-5.1) 09/10/22 05:12 Chloride 103 mmol/L (98-107) 09/10/22 05:12 Carbon Dioxide 24 mmol/L (22-29) 09/10/22 05:12 Anion Gap 11.4 (5-19) 09/10/22 05:12 BUN 41 mg/dL (8-23) H 09/10/22 05:12 Creatinine 2.0 mg/dL (0.7-1.2) H 09/10/22 05:12 GFR Calculation 33.7 mL/min (90-130) L 09/10/22 05:12 Glucose 123 mg/dL (65-115) H 09/10/22 05:12 Calculated Osmolality 289 mOsm/kg (285-295) 09/10/22 05:12 Calcium 8.0 mg/dL (8.5-10.5) L 09/10/22 05:12 Magnesium 1.8 mg/dL (1.7-2.3) 09/10/22 05:12 Blood Type O Positive 09/09/22 17:00 Rho(D) Type Positive 09/09/22 17:00 Antibody Screen Negative 09/09/22 17:00 Crossmatch See Detail 09/09/22 17:00 Vitals Last Vital Signs Temp 98.3 F 09/10/22 07:50 Pulse 62 09/10/22 08:36 Resp 22 H 09/10/22 08:36 BP 131/77 09/10/22 07:50 Pulse Ox 92 09/10/22 08:36 O2 Del Method 09/10/22 08:36 O2 Flow Rate 5 09/10/22 08:36 Discharge Plan Discharge Patient Disposition: Home Condition: Stable Prescriptions: New ferrous sulfate [Feosol] 325 mg (65 mg iron) tablet 325 mg PO DAILY Qty: 30 0RF Continued (DME) diabetic shoes with inserts See Rx Instructions .Route .MEDSUPPLY Qty: 1 0RF Rx Instructions: As directed ([facility]) Diabetic shoes with inserts See Rx Instructions .Route .MEDSUPPLY Qty: 1 0RF Rx Instructions: As directed metolazone 2.5 mg tablet 2.5 mg PO .qod metoprolol succinate 100 mg tablet extended release 24 hr 100 mg PO DAILY Qty: 90 3RF acetaminophen-codeine 300-60 mg tablet 1 tab PO Q8H PRN (Reason: Pain) ([facility] [place]) o2 at 3L per nasal cannula See Rx Instructions .Route .MEDSUPPLY Qty: 1 0RF Rx Instructions: Room air O2 sats were 83. After 3L O2 went up to 90's however when walking still at 89 on 3 L O2. atorvastatin 20 mg tablet See Rx Instructions .ROUTE .COMPLEX Qty: 90 2RF Dose Instruction: TAKE ONE TABLET BY MOUTH DAILY Rx Instructions: TAKE ONE TABLET BY MOUTH DAILY furosemide 20 mg tablet 20 mg PO DAILY Qty: 90 3RF pregabalin 100 mg capsule 100 mg PO TID Qty: 90 2RF Eliquis 5 mg tablet See Rx Instructions .ROUTE .COMPLEX Qty: 60 6RF Dose Instruction: TAKE ONE TABLET BY MOUTH TWICE DAILY Rx Instructions: TAKE ONE TABLET BY MOUTH TWICE DAILY fenofibrate 160 mg tablet See Rx Instructions .ROUTE .COMPLEX Qty: 30 6RF Dose Instruction: TAKE ONE TABLET BY MOUTH EVERY DAY Rx Instructions: TAKE ONE TABLET BY MOUTH EVERY DAY allopurinol 300 mg tablet See Rx Instructions .ROUTE .COMPLEX Qty: 30 6RF Dose Instruction: TAKE ONE TABLET BY MOUTH DAILY Rx Instructions: TAKE ONE TABLET BY MOUTH DAILY ([facility] [place]) Blood pressure cuff and machine See Rx Instructions .Route .MEDSUPPLY Qty: 1 0RF Rx Instructions: As directed duloxetine 20 mg capsule,delayed release(DR/EC) See Rx Instructions .ROUTE .COMPLEX Qty: 60 3RF Dose Instruction: TAKE ONE CAPSULE BY MOUTH TWICE DAILY Rx Instructions: TAKE ONE CAPSULE BY MOUTH TWICE DAILY tadalafil 20 mg tablet See Rx Instructions .ROUTE .COMPLEX Qty: 30 2RF Dose Instruction: TAKE ONE TABLET BY MOUTH ONCE NEEDED FOR sexual activity, administer approximately 30 minutes BEFORE activity, max ONE tablet in 24 HOURS Rx Instructions: TAKE ONE TABLET BY MOUTH ONCE NEEDED FOR sexual activity, administer approximately 30 minutes BEFORE activity, max ONE tablet in 24 HOURS Entresto 97-103 mg tablet See Rx Instructions .ROUTE .COMPLEX Qty: 180 3RF Dose Instruction: TAKE ONE TABLET BY MOUTH TWICE DAILY Rx Instructions: TAKE ONE TABLET BY MOUTH TWICE DAILY Trulicity 0.75 mg/0.5 mL pen injector See Rx Instructions .ROUTE .COMPLEX Qty: 6 2RF Dose Instruction: inject 0.75mg SUBCUTANEOUSLY ONCE WEEKLY Rx Instructions: inject 0.75mg SUBCUTANEOUSLY ONCE WEEKLY ON TUESDAYS metformin 850 mg tablet See Rx Instructions .ROUTE .COMPLEX Qty: 90 2RF Dose Instruction: TAKE ONE TABLET BY MOUTH DAILY Rx Instructions: TAKE ONE TABLET BY MOUTH DAILY amlodipine 5 mg tablet See Rx Instructions .ROUTE .COMPLEX Qty: 90 2RF Dose Instruction: TAKE ONE TABLET BY MOUTH EVERY DAY Rx Instructions: TAKE ONE TABLET BY MOUTH EVERY DAY ondansetron HCl 8 mg tablet See Rx Instructions .ROUTE .COMPLEX Qty: 20 0RF Dose Instruction: TAKE ONE TABLET BY MOUTH EVERY 8 HOURS Rx Instructions: TAKE ONE TABLET BY MOUTH EVERY 8 HOURS diphenoxylate-atropine 2.5-0.025 mg tablet 1 tab PO Q8H Qty: 60 0RF potassium chloride 20 mEq tablet,ER particles/crystals 20 meq PO DAILY famotidine 40 mg tablet See Rx Instructions .ROUTE .COMPLEX PRN (Reason: Acid Reflux) Rx Instructions: TAKE ONE TABLET BY MOUTH TWICE DAILY Discharge Orders: Discharge Order (Routine); Ordered 09/10/22 Ordered By: Riddhi Harris Referrals: Diana Butcher MD [Primary Care Provider] - Patient Instructions: Opioid Safety Discharge Attestations Time Spent in Discharge Care*: less than 30 min Quality Metrics Clinical Quality Measures [ No reported AMI, CVA or VTE this stay] Coding Level of Care Code Acute [facility] note Diagnoses Acute and chronic respiratory failure with hypoxia J96.21 Anemia D64.9 Pneumonia J18.9
--- NOTE | 2022-09-10 10:23 | PC.CHAP ---
Pastoral Care Encounter/Spiritual Assessment Type of Contact [] Declined baker apprentice visit [] Patient/Family/Request visit [] Outpatient visit [] Follow-up visit [] Physician referral [] Code/Alert [x] Routine visit [] Staff referral [] Actively dying [] Patient sleeping [] Family support [] [] Out of room [] Palliative care [] [] Receiving care in room [] Pre-surgical visit [] Trauma [] Long length of stay [] ICU visit [] Other: Relational/Emotional Strength [x] Patient feels connected with others/family/visitors/staff [] Distress [] Loneliness/isolation [] Abandonment Spirituality of Patient [x] Person of Karla [] Attends Uatsdin of their Karla x[] Believes in Prayer [] Reads Bible or Yazidism materials [] There are Spiritual issues to be addressed Homeopathic Doctor Interventions [x] Prayer [x] Active listening x[x] Non-anxious presence [x] Spiritual/emotional support [] Crisis/trauma care [] Spiritual counseling [] Bereavement support [] Provided bereavement packet [] Provided Bible/devotional materials [] Provided toy/stuffed animal, coloring book to patient or family member [] Provided Communion [] Anointing/[place] [] Salvation [x] Completed spiritual assessment [] Other: Impact on Illness or Injury [] Angry [] Fearful [] Anxious [] Often cries [] Exhaustion [] Unable to work [] Unable to attend caodaism [] Unable to walk/stand [] Unable to read [] Unable to drive [] Unable to eat/drink [] Unable to sleep [] Unable to be with family [] Patient intubated [] Other: Summary [facility] with [facility]
[2022-09-10 10:30] LABS: Adenovirus Not Detected (NOT DETECT); Chlamydia Pneumoniae Not Detected (NOT DETECT); Coronavirus 229E,HKU1,NL63,OC4 Not Detected (NOT DETECT); Human Metapneumovirus Not Detected (NOT DETECT); Human Rhinovirus/Enterovirus Not Detected (NOT DETECT); Influenza A Not Detected (NOT DETECT); Influenza A H1 Not Detected (NOT DETECT); Influenza A H1-2009 Not Detected (NOT DETECT); Influenza A H3 Not Detected (NOT DETECT); Influenza B Not Detected (NOT DETECT); Mycoplasma Pneumoniae Not Detected (NOT DETECT); Parainfluenza Virus Type 1 Not Detected (NOT DETECT); Parainfluenza Virus Type 2 Not Detected (NOT DETECT); Parainfluenza Virus Type 3 Not Detected (NOT DETECT); Parainfluenza Virus Type 4 Not Detected (NOT DETECT); Respiratory Syncytial Virus A Not Detected (NOT DETECT); Respiratory Syncytial Virus B Not Detected (NOT DETECT); SARS-COV-2 Not Detected (NOT DETECT)
[2022-09-10] MEDS: sodium chloride 0.9% (100 ml) 100 ML (10:56)
[2022-09-10] MEDS: FUROsemide 10 mg/mL SDV 4mL 40 MG IVP (10:57)
[2022-09-10 15:33] LABS: Hemoglobin 7.6 g/dL (11.7-16.6)
== END 2022-09-10 16:40 | disposition home or self-care (01) ==
LOC: ER 17:36 → MEDSURG 17:52
PROVIDERS: Admitting Provider Internal Medicine; Emergency Provider Family Medicine; PCP Family Medicine; Visit Provider Internal Medicine
DX: J96.21 Acute and chronic respiratory failure with hypoxia (principal); D64.9 Anemia, unspecified; J18.9 Pneumonia, unspecified organism; Z99.81 Dependence on supplemental oxygen; E11.22 Type 2 diabetes mellitus with diabetic chronic kidney disease; I12.9 Hypertensive chronic kidney disease with stage 1 through stage 4 chronic kidney disease, or unspecified chronic kidney disease; N18.9 Chronic kidney disease, unspecified; E78.2 Mixed hyperlipidemia; Z79.84 Long term (current) use of oral hypoglycemic drugs; Z95.0 Presence of cardiac pacemaker
CPT/HCPCS: 36415; 36430; 71045; 80048; 83735; 85014; 85018; 85025; 86850; 86880; 86900; 86920; 87070; 87077; 87186; 87205; 87635; 93005; 96374; 96375; 96376; 99285; C9113; G0378; J1940; P9016

== ENCOUNTER 2022-09-11 15:39 | Outpatient (CLI) | payer MEDICARE, MEDICAID, SELFPAY ==
[2022-09-11 17:31] LABS: Basophils % 0.4 %; Eosinophils % 0.4 %; Hematocrit 26.4 % (42.0-52.0); Hemoglobin 8.1 g/dL (11.7-16.6); Lymphocytes % 28.6 %; Mean Corpuscular HGB Conc 30.7 g/dL (30.0-36.0); Mean Corpuscular Hemoglobin 32.8 pg (28.0-34.0); Mean Corpuscular Volume 106.9 fl (80-94); Mean Platelet Volume 10.5 fL (7.4-10.4); Monocytes # 0.3 10^3/uL (0.2-0.9); Monocytes % 4.4 %; Neutrophils # 4.59 10^3/uL (1.8-7.7); Neutrophils % 64.9 %; Nucleated Red Blood Cells # 0.1 /100WBC; Nucleated Red Blood Cells % 1.3 %; Platelet Count 133 10^3/cmm (130-400); Red Blood Count 2.47 10^6/uL (4.1-5.3); Red Cell Distribution Width 19.9 % (12.1-15.1); White Blood Count 7.1 10^3/uL (4.0-10.0)
== END 2022-09-11 15:40 | disposition home or self-care (01) ==
LOC: LAB 15:40
PROVIDERS: PCP Family Medicine; Visit Provider Internal Medicine Medical Oncology
DX: D64.9 Anemia, unspecified (principal)
CPT/HCPCS: 36415; 85025

== ENCOUNTER 2022-09-16 20:34 | Inpatient (IN) | payer MEDICARE, MEDICAID, SELFPAY ==
[2022-09-16 20:53] VITALS: BP 135/88; PULSE 70; RESP 20; O2SAT 100
--- NOTE | 2022-09-16 21:10 | XRR_ITS ---
PROCEDURE INFORMATION: Exam: XR Chest Exam date and time: 09/16/2022 9:39 PM Age: 67 years old Clinical indication: Shortness of breath; Patient HX: Severe SOB TECHNIQUE: Imaging protocol: Radiologic exam of the chest. Views: 1 view. COMPARISON: CR (CHEST, ) 09/09/2022 6:23 PM FINDINGS: Tubes, catheters and devices: Pacemaker. Lungs: Patchy right lung field ground-glass airspace opacity reflecting alveolar edema and/or pneumonic infiltrate. Pleural spaces: Unremarkable. No pleural effusion. No pneumothorax. Heart/Mediastinum: Cardiomegaly and mild pulmonary vascular congestion. Bones/joints: Sternotomy wires. XR/XR chest 1V portable [id number] IMPRESSION: 1. Cardiomegaly and mild pulmonary vascular congestion. 2. Patchy right lung field ground-glass airspace opacity reflecting alveolar edema and/or pneumonic infiltrate.
--- NOTE | 2022-09-16 21:13 | ED_ITS ---
HPI - SOB/Dyspnea General: Chief Complaint: ER Hold Stated Complaint: Low O2, 82 Time Seen by Provider: 09/16/22 20:59 Source: patient and family Mode of arrival: ambulatory Limitations: no limitations History of Present Illness: HPI Narrative: Patient comes to the emergency department accompanied by his family. Apparently his oxygen requirements have increased today. Family has noted his pulse oximetry on his normal 2 to 3 L have been in the 80s. He states he does not pa rticularly feel dyspneic but it the O2 sat numbers have significantly concerned the family. He denies chest pain. He has a history of a aortic valve replacement. He also has a history of a pacemaker with a redo approximately 1 week ago. He has a history of a recently discovered macrocytic anemia that is undergoing a work-up by hematology. He was admitted to the facility on 09 September for a blood transfusion because of a low hemoglobin at that time. Relieving factors: oxygen Associated symptoms: Deny abdominal pain, chest pain, extremity pain, fever(s), nausea, palpitations or vomiting Related Data: Home oxygen amount: 2 liters Review of Systems Const: Denies: fever(s) or chills ENMT: Denies: odynophagia, nasal discharge or nasal congestion Card: Denies: chest pain, palpitations or irregular heart rhythm Resp: Denies: productive cough or non-productive cough GI: Denies: abdominal pain, nausea or vomiting : Denies: flank pain, difficulty urinating or dysuria Musc: Denies: neck pain, back pain, extremity pain or extremity swelling Skin/Breast: Reports: rash Neuro: Denies: headache(s), numbness in extremities or weakness in extremities CR[facility]ICAL ACCESS H[facility]ITAL ED PFSH: Medical History (Updated 09/17/22 @ 00:43 by Josias Matthews MD) Acute and chronic respiratory failure with hypoxia Anemia Chronic kidney disease DDD (degenerative disc disease), lumbosacral Erectile dysfunction HTN (hypertension) Idiopathic gout, right ankle and foot Mixed hyperlipidemia Nonischemic cardiomyopathy Nonrheumatic aortic (valve) stenosis Pneumonia Type 2 diabetes mellitus Surgical History History of cardiac pacemaker Hx of arthroscopy of left knee Hx of heart surgery (2017) Aortic valve replacement and aneurysm repair Hx of tooth extraction Family History Mother CAD (coronary artery disease) Brother Cancer Other Hypertension Denies family history of Diabetes Clotting disorder Dementia Chronic kidney disease (CKD) Suicide Anesthesia complication Bleeding disorder Lung disease Stroke Social History Smoking and tobacco status: never smoked Second hand smoke exposure: No Alcohol intake: current Alcohol intake frequency: holidays/special occasions only Adopted: No Caregiver/support person: Yes (spouse) Lives independently: Yes Household members: spouse and children Housing: House Marital status: Number of children: 3 Number of grandchildren: 3 Highest education level completed: 6th Grade service: No Current occupational status: disabled Pets and animals: Yes History of recent travel: No Current gender identity: Male Special pola needs: No Agree to transfusion: Yes Physical Exam Narrative: EXAM NARRATIVE: He is alert speaks in complete sentences without conversational dyspnea. Cooperative. Const: COMMON NORMALS: no acute distress and patient oriented x3 GENERAL APPEARANCE: cooperative and comfortable NUTRITIONAL APPEARANCE: overweight HENMT: COMMON NORMALS: normocephalic, Normal nasal mucous membranes and turbinates present and moist oral mucous membranes HEAD & SCALP: normocephalic FACE & SINUS: normal facial exam NOSE: Normal nasal mucous membranes and turbinates present Eye: COMMON NORMALS: Equal, round and reactive pupils present, EOMs intact ranjit aterally and conjunctivae normal CONJUNCTIVA: Yes conjunctivae normal PUPIL: Yes Equal, round and reactive pupils present Neck/C-Spine: COMMON NORMALS: full ROM, no lymphadenopathy and no JVD Chest: COMMONS NORMALS: normal inspection of the chest and normal palpation of entire chest wall Resp: COMMON NORMALS: normal respiratory effort, No retractions, No use of accessory muscles and clear to auscultation bilaterally AUSCULTATION: clear to auscultation bilaterally Cardio: COMMON NORMALS: no JVD, regular rate, regular rhythm and Peripheral pulses 2+ throughout RATE: regular rate RHYTHM: regular rhythm HEART SOUNDS: Murmur heart sound present PERIPHERAL PULSES: Peripheral pulses 2+ throughout GI: COMMON NORMALS: Normal to inspection, nondistended, normoactive bowel sounds present, Soft to palpation and non-tender PALPATION: Yes Soft to palpation : COMMON NORMALS: Yes no CVA tenderness BLADDER/KIDNEY EXAM: Yes no CVA tenderness Back/Pelvis: COMMON NORMALS: no CVA tenderness, thoracic and lumbar spine normal to inspection, no thoracic nor lumbar tenderness and thoraco-lumbar ROM normal Extremity: COMMON NORMALS: normal to inspection, full ROM, capillary refill normal and no calf tenderness NARRATIVE EXTREMITY EXAM: Trace pretibial edema bilaterally Neuro: COMMON NORMALS: patient oriented x3, moves all extremities, no focal motor deficits and no sensory deficits noted Psych: COMMON NORMALS: mental status grossly normal Skin: COMMON NORMALS: turgor normal NARRATIVE SKIN EXAM: Petechial appearing rash on the right abdomen as well as's similar but less d ense on the extreme distal legs. GENERAL SKIN EXAM: turgor normal Course Reevaluation(s): Reevaluation #1: Limited bedside ultrasound view myocardium was performed. Using a parasternal long axis view was able to visualize the myocardium in a limited fashion. No obvious significant pericardial effusion was noted. Is noted to have fair contractility of the RV and the LV. He was switched to a nasal cannula given his blood gas results. We will monitor and follow his pulse oximetry on nasal cannula. Time: 22:05 Consultations: Consultation #1: Discussed with Dr. Dodge who plans on admitting the patient after CTPA completed Time: 23:44 Vital Signs: Vital signs: Vital Signs Pulse Rate 70 09/17/22 09:07 Respiratory Rate 18 09/17/22 08:00 Blood Pressure 110/44 09/17/22 07:30 Pulse Oximetry 98 09/17/22 09:15 Oxygen Delivery Me thod 09/17/22 09:15 Oxygen Flow Rate 6 09/16/22 23:11 Fraction of Inspir ed Oxygen 35 09/17/22 09:15 MDM - SOB/Dyspnea Medical Decision Making This patient with a known history of multiple medical problems to include chronic kidney disease, aortic stenosis, anemia chronic respiratory disease pres ented to the emergency department because he had increasing oxygen requirement at home. No sustained chest pain fevers cough or other suggestion of acute infectious etiology. Work-up tonight revealed he has a chronic anemia essentially unchanged from recent hemoglobin. Chest x-ray revealed cardiomegaly and some evidence of vascular congestion and his D-dimer is elevated which may be due to possible occult thromboembolic disease but certainly could also be due to his chronic kidney disease. We will continue his work-up to include D-dimer and plan on admitting him for continued therapy. Medical Records I reviewed the patient's medical records. Lab Data I reviewed the patient's lab results. 09/16/22 21:09 09/16/22 21:09 Labs/Radiology: Radiology Impressions Chest X-Ray 09/16/22 21:10 IMPRESSION: 1. Cardiomegaly and mild pulmonary vascular congestion. 2. Patchy right lung field ground-glass airspace opacity reflecting alveolar edema and/or pneumonic infiltrate. Chest CTA 09/16/22 22:20 IMPRESSION: 1. Negative for pulmonary embolus. 2. Cardiomegaly. 3. 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 4. Cholelithiasis. 5. Patchy bilateral airspace infiltrates. 6. Scattered prominent mediastinal lymph nodes measuring up to 13 mm, nonspecific. 7. Trace right pleural effusion. Abdomen Ultrasound 09/17/22 00:29 IMPRESSION: 1. Cholelithiasis with severe gallbladder wall thickening. This wall thickening is nonspecific and may be due to cholecystitis, 3rd spacing of fluid, or adjacent liver disease. Negative Sparks's sign. Advise correlation. Consider need for HIDA scan. 2. Upper limits of normal CBD. 3. Other findings above. Laboratory Results WBC 7.7 10^3/uL (4.0-10.0) 09/16/22 21: RBC 2.33 10^6/uL (4.1-5.3) L 09/16/22 21:09 Hgb 7.6 g/dL (11.7-16.6) L 09/16/22 21: Hct 24.9 % (42.0-52.0) L 09/16/22 21: MCV 106.9 fl (80-94) H 09/16/22 21: MCH 32.6 pg (28.0-34.0) 09/16/22 21: MCHC 30.5 g/dL (30.0-36.0) 09/16/22 21: RDW 21.0 % (12.1-15.1) H 09/16/22 21: Plt Count 114 10^3/cmm (130-400) L 09/16/22 21: MPV 10.9 fL (7.4-10.4) H 09/16/22 21:09 Neut % (Auto) 75.7 % 09/16/22 21:09 Lymph % (Auto) 18.6 % 09/16/22 21:09 [place] % (Auto) 4.3 % 09/16/22 21:09 Eos % (Auto) 0.3 % 09/16/22 21:09 Baso % (Auto) 0.3 % 09/16/22 21:09 Neut # (Auto) 5.81 10^3/uL (1.8-7.7) 09/16/22 21:09 Lymph # (Auto) 1.4 10^3/uL (0.8-4.8) 09/16/22 21:09 [place] # (Auto) 0.3 10^3/uL (0.2-0.9) 09/16/22 21:09 Eos # (Auto) 0.0 10^3/uL (0.0-0.8) 09/16/22 21:09 Baso # (Auto) 0.0 10^3/uL (0.0-0.1) 09/16/22 21:09 Nucleated RBC % (auto) 0.9 % 09/16/22 21:09 Nucleated RBCs # 0.1 /100WBC 09/16/22 21:09 D-Dimer 3.63 ug/mIFEU (0-0.59) H 09/16/22 21:09 Specimen Type Arterial 09/16/22 21:41 Sample Site Radial, left 09/16/22 21:41 ABG pH 7.42 (7.35-7.45) 09/16/22 21:41 ABG pCO2 39.4 mmHg (35-45) 09/16/22 21:41 ABG pO2 135.0 mmHg (80.0-100.0) H 09/16/22 21:41 ABG HCO3 25.6 mmol/L (22-26) 09/16/22 21:41 ABG Base Excess 1.0 mmol/L (-2.0-2.0) 09/16/22 21:41 Anthony Test Pos 09/16/22 21:41 Hematocrit 24.7 % (42-52) L 09/16/22 21:41 Hgb O2 Saturation 96.6 % (95-100) 09/16/22 21:41 Carboxyhemoglobin 3.0 %THgb (0.4-20.1) 09/16/22 21:41 Methemoglobin 0.9 % (0.4-1.5) 09/16/22 21:41 Total Hemoglobin 8.1 g/dL (14-18) L 09/16/22 21:41 O2 Delivery Device Nrb 09/16/22 21:41 O2 Liters/Min 12.0 % 09/16/22 21:41 FiO2 100.0 % 09/16/22 21:41 Ladle Handler ID Alewe 09/16/22 21:41 Sodium 134 mmol/L (136-145) L 09/16/22 21:09 Potassium 4.7 mmol/L (3.5-5.1) 09/16/22 21:09 Chloride 101 mmol/L (98-107) 09/16/22 21:09 Carbon Dioxide 23 mmol/L (22-29) 09/16/22 21:09 Anion Gap 14.7 (5-19) 09/16/22 21:09 BUN 49 mg/dL (8-23) H 09/16/22 21:09 Creatinine 2.3 mg/dL (0.7-1.2) H 09/16/22 21:09 GFR Calculation 28.7 mL/min (90-130) L 09/16/22 21:09 Glucose 136 mg/dL (65-115) H 09/16/22 21:09 Estimat Average Glucose 126 09/17/22 03:40 Hemoglobin A1c 6.0 % (4.0-6.0) 09/17/22 03:40 Calculated Osmolality 293 mOsm/kg (285-295) 09/16/22 21:09 Calcium 8.5 mg/dL (8.5-10.5) 09/16/22 21:09 Magnesium 1.9 mg/dL (1.7-2.3) 09/17/22 03:40 Iron 95 ug/dL (59-158) 09/17/22 03:40 Ferritin 990 ng/mL (30-400) H 09/17/22 03:40 Total Bilirubin 1.9 mg/dL (0.15-1.2) H 09/16/22 21:09 AST 117 U/L (0-40) H 09/16/22 21:09 ALT 66 U/L (0-41) H 09/16/22 21:09 Alkaline Phosphatase 43 U/L (40-130) 09/16/22 21:09 Troponin T Baseline 41 ng/L (0-15) H 09/16/22 21:09 Troponin T 120 Minute 40.71 ng/L (0-15) H 09/16/22 22:53 Delta Troponin T -0.29 ABS# (0-10) L 09/16/22 22:53 Troponin T Hi Sens 6Hr 39.40 ng/L (0-15) H 09/17/22 03:40 Troponin T Hi Sens 6Hr Delta -1.60 ng/L (0-12) L 09/17/22 03:40 C-Reactive Protein 36.7 mg/L (0.0-4.9) H 09/17/22 03:40 NT-Pro-B Natriuret Pep 67854 pg/mL (0-125) H 09/16/22 21:09 Total Protein 8.2 g/dL (6.6-8.7) 09/16/22 21:09 Albumin 2.9 g/dL (3.5-5.2) L 09/16/22 21:09 Globulin 5.3 g/dL (1.3-4.6) H 09/16/22 21:09 Triglycerides 109 mg/dL (0-150) 09/17/22 03:40 Cholesterol 78 mg/dL (0-200) 09/17/22 03:40 LDL Cholesterol, Calc 43 mg/dL (50-129) L 09/17/22 03:40 HDL Cholesterol 13 mg/dL (60-100) L 09/17/22 03:40 LDL/HDL Ratio 3.31 RATIO (0.00-3.22) H 09/17/22 03:40 Cholesterol/HDL Ratio 6.00 mg/dL (1.0-5.00) H 09/17/22 03:40 Procalcitonin 0.59 ng/mL (0-0.5) H 09/17/22 03:40 TSH 1.75 uIU/mL (0.27-4.20) 09/17/22 03:40 EKG Data EKG 1: I personally reviewed and interpreted this EKG as follows: Interpretation: Contemporaneous review of EKG tracing reveals a ventricular rate of 69 bpm. Consistent with a paced ventricular rhythm. No acute ST-T wave changes noted. Discharge Plan Discharge Patient Disposition: Admitted As Inpatient Admit Provider: Josias Matthews Clinical Impression: Congestive heart failure, Anemia Condition: Stable Coding Level of Care Code ED Dynamic Balancer for Chg Fwd Exam Comprehensive
[2022-09-16 21:16] LABS: Basophils % 0.3 %; Eosinophils % 0.3 %; Hematocrit 24.9 % (42.0-52.0); Hemoglobin 7.6 g/dL (11.7-16.6); Lymphocytes # 1.4 10^3/uL (0.8-4.8); Lymphocytes % 18.6 %; Mean Corpuscular HGB Conc 30.5 g/dL (30.0-36.0); Mean Corpuscular Hemoglobin 32.6 pg (28.0-34.0); Mean Corpuscular Volume 106.9 fl (80-94); Mean Platelet Volume 10.9 fL (7.4-10.4); Monocytes # 0.3 10^3/uL (0.2-0.9); Monocytes % 4.3 %; Neutrophils # 5.81 10^3/uL (1.8-7.7); Neutrophils % 75.7 %; Nucleated Red Blood Cells # 0.1 /100WBC; Nucleated Red Blood Cells % 0.9 %; Platelet Count 114 10^3/cmm (130-400); Red Blood Count 2.33 10^6/uL (4.1-5.3); White Blood Count 7.7 10^3/uL (4.0-10.0)
--- NOTE | 2022-09-16 21:33 | ECG_ITS ---
[facility] Test Date: 2022-09-16 Pat Name: Pawan Marcum Department: Room: Gender: Male Screen Operator: : 1955 Requested By: Chalino Billy Order Number: [id number] Bebe MD: Sagar Newell M.D. Measurements Intervals [place] Rate: 69 P: 0 ND: 0 QRS: -64 QRSD: 176 T: 120 QT: 460 QTc: 494 Interpretive Statements ELECTRONIC VENTRICULAR PACEMAKER Compared to ECG 09/09/2022 18:47:29 No significant changes Electronically Signed On 09-16-2022 21:36:01 [employer] MILLING MACHINE OPERATOR by Sagar Newell M.D. [id number]
[2022-09-16 21:40] LABS: Troponin(5th) Baseline 41 ng/L (0-15)
[2022-09-16 21:49] LABS: Alanine Aminotransferase 66 U/L (0-41); Albumin Level 2.9 g/dL (3.5-5.2); Alkaline Phosphatase 43 U/L (40-130); Anion Gap 14.7 (5-19); Aspartate Amino Transferase 117 U/L (0-40); Blood Urea Nitrogen 49 mg/dL (8-23); Calcium 8.5 mg/dL (8.5-10.5); Carbon Dioxide 23 mmol/L (22-29); Chloride 101 mmol/L (98-107); Globulin 5.3 g/dL (1.3-4.6); Glomerular Filtration Rate 28.7 mL/min (90-130); Glucose 136 mg/dL (65-115); NT Pro B Type Natriuretic Pept 11578 pg/mL (0-125); Osmolality Calculated 293 mOsm/kg (285-295); Potassium 4.7 mmol/L (3.5-5.1); Sodium 134 mmol/L (136-145); Total Bilirubin 1.9 mg/dL (0.15-1.2); Total Protein 8.2 g/dL (6.6-8.7)
[2022-09-16 21:53] LABS: ABG PCO2 39.4 mmHg (35-45); ABG PH Result 7.42 (7.35-7.45); Arterial Blood Gas Hematocrit 24.7 % (42-52); Blood Gas Allen Test Pos; Blood Gas Sample Site Radial, left; Blood Gas Sample Type Arterial; HCO3 ABG 25.6 mmol/L (22-26); HGB O2 Sat 96.6 % (95-100); Methemoglobin 0.9 % (0.4-1.5); Oxygen Device NRB; Total Hemoglobin 8.1 g/dL (14-18)
[2022-09-16 22:00] VITALS: BP 146/96; PULSE 70; RESP 22; O2SAT 99
[2022-09-16 22:15] LABS: D Dimer 3.63 ug/mIFEU (0-0.59)
--- NOTE | 2022-09-16 22:20 | CTR_ITS ---
PROCEDURE INFORMATION: Exam: CTA Chest With Contrast Exam date and time: 09/16/2022 11:43 PM Age: 67 years old Clinical indication: Abnormal findings; Abnormal diagnostic tests; Elevated d-dimer; Shortness of breath; Prior surgery; Surgery type: Valve replacement; Patient HX: SOB with hypoxia. Elevated d dimer. ; Additional info: SOB, dimer TECHNIQUE: Imaging protocol: Computed tomographic angiography of the chest with contrast. 3D rendering (Not supervised by radiologist): MIP and/or 3D reconstructed images were created by the technologist. Radiation optimization: All CT scans at this facility use at least one of these dose optimization techniques: automated exposure control; mA and/or kV adjustment per patient size (includes targeted exams where dose is matched to clinical indication); or iterative reconstruction. Contrast material: OMNI 350; Contrast volume: 75 ml; Contrast route: INTRAVENOUS (IV); COMPARISON: CT angio chest [id number] 07/15/2016 12:48 PM RADIATION DOSE METRICS: Total DLP (mGy-cm): 318.73 FINDINGS: Pulmonary arteries: Normal. No pulmonary emboli. Aorta: Ascending thoracic aorta demonstrates aneurysmal dilation to 5.6 cm at the root with apparent graft material seen in the upper ascending thoracic aorta, the dilation appears similar to prior exam. Lungs: Patchy bilateral airspace infiltrates. Pleural spaces: Trace right pleural effusion. Heart: Cardiomegaly. Lymph nodes: Scattered prominent mediastinal lymph nodes measuring up to 13 mm, nonspecific. Gallbladder and bile ducts: Cholelithiasis. Bones/joints: Sternotomy wires. Soft tissues: Unremarkable. CT/CT angio chest PE protcl [id number] IMPRESSION: 1. Negative for pulmonary embolus. 2. Cardiomegaly. 3. 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 4. Cholelithiasis. 5. Patchy bilateral airspace infiltrates. 6. Scattered prominent mediastinal lymph nodes measuring up to 13 mm, nonspecific. 7. Trace right pleural effusion.
[2022-09-16] MEDS: FUROsemide 10 mg/mL SDV 4mL 40 MG IVP (22:48)
[2022-09-16 23:11] VITALS: BP 150/95; PULSE 70; RESP 16; O2SAT 95
[2022-09-16 23:15] LABS: Troponin 5 2HR 40.71 ng/L (0-15)
[2022-09-16 23:38] LABS: Troponin 5 2HR Delta -0.29 ABS# (0-10)
[2022-09-17] VITALS (55 sets, daily range): BP systolic 94–178; BP diastolic 44–91; PULSE 70–79; RESP 12–26; TEMP 36.6–36.7; O2SAT 80–100
[2022-09-17] MEDS: iohexol 350 mg/mL 500 mL Btl (per mL) IV (00:01)
--- NOTE | 2022-09-17 00:29 | USR_ITS ---
PROCEDURE INFORMATION: Exam: US Abdomen; Limited Exam date and time: 09/17/2022 1:11 AM Age: 67 years old Clinical indication: Other: Elevated lfts; Patient HX: History of pacer, aortic valve replacement, chf; Additional info: Liver TECHNIQUE: Imaging protocol: Real time ultrasound of the abdomen with image documentation. Limited exam focused on the region of clinical interest. COMPARISON: CT angio chest PE protcl [id number] 09/16/2022 11:43 PM FINDINGS: Liver: The liver is 16 cm in length and shows no focal solid mass or biliary dilation. Gallbladder: A mobile gallstone is visualized. The gallbladder wall is very thickened to 9 mm. Negative Sparks's sign. Biliary ducts: The CBD measures 6 mm, borderline for age. Pancreas: Visualized pancreas unremarkable. Right kidney: The right kidney shows no solid mass or hydronephrosis. Intraperitoneal space: No visualized ascites. Inferior vena cava: Very large IVC. Portal venous: The portal vein has normal directional flow. Other findings: No visualized AAA. US/US abdomen limited [id number] IMPRESSION: 1. Cholelithiasis with severe gallbladder wall thickening. This wall thickening is nonspecific and may be due to cholecystitis, 3rd spacing of fluid, or adjacent liver disease. Negative Sparks's sign. Advise correlation. Consider need for HIDA scan. 2. Upper limits of normal CBD. 3. Other findings above.
--- NOTE | 2022-09-17 00:30 | PM.HP ---
Providers/Chief Complaint Primary Care Provider: Diana Butcher MD Chief Complaint: Low O2, 82 History of Present Illness Pawan Marcum is a 67 year old male with a past medical history of CAD, status post CABG, history of atrial fibrillation on Eliquis, history of systolic and diastolic CHF, obesity, hypertension, hyperlipidemia, xsi-odvadat-mvjmhmuib type 2 diabetes mellitus, currently going under investigation for anemia, microcytic, chronic kidney disease who presents to [facility] due to increased shortness of breath, bilateral extremity edema. Patient tells me that since getting out of the hospital, he has had some progressive shortness of breath, but today he noticed significant worsening of his shortness of breath, with increased oxygen requirements, he normally uses 3 L a but they had to bump him up to 5 L, but he is oxygen saturations remained in the low 80s, denies any chest pain, palpitations, no cough, fevers, no chills. Does have bilateral extremity edema, does have orthopnea paroxysmal nocturnal dyspnea. Review of Systems Const: Denies: fever(s) Eyes: Denies: change in vision ENMT: Denies: nasal congestion Card: Denies: chest pain Resp: Reports: dyspnea; Denies: productive cough or non-productive cough GI: Denies: abdominal pain, nausea, vomiting, hematochezia or melena : Denies: flank pain, difficulty urinating, dysuria or urinary frequency Musc: Denies: neck pain or back pain Neuro: Denies: headache(s), dizziness or vertigo Endo: Denies: polyuria or polydipsia Torres/Lymph: Reports: easy bruising and petechiae Medications/Allergies Home Medications Medication Instructions Recorded Confirmed Last Taken Type diabetic shoes with inserts #1 ea 02/28/21 09/11/22 08/12/22 Rx atorvastatin 20 mg tablet See Rx Instructions .Route 10/25/21 09/11/22 09/09/22 Rx .COMPLEX #90 tabs Diabetic shoes with inserts #1 ea 12/05/21 09/11/22 08/12/22 Rx furosemide 20 mg tablet 20 mg PO DAILY edema #90 tabs 02/18/22 09/11/22 09/09/22 Rx pregabalin 100 mg capsule 100 mg PO TID #90 caps 04/21/22 09/11/22 09/09/22 Rx allopurinol 300 mg tablet See Rx Instructions .Route 06/04/22 09/11/22 09/09/22 Rx .COMPLEX #30 tabs apixaban 5 mg tablet (Eliquis) See Rx Instructions .Route 06/04/22 09/11/22 09/09/22 09:00 Rx .COMPLEX #60 tabs fenofibrate 160 mg tablet See Rx Instructions .Route 06/04/22 09/11/22 09/09/22 09:00 Rx .COMPLEX #30 tabs metolazone 2.5 mg tablet 2.5 mg PO .qod 06/18/22 09/11/22 08/12/22 20:00 History metoprolol succinate 100 mg 100 mg PO DAILY #90 tabs 06/18/22 09/11/22 09/09/22 Rx tablet,extended release 24 hr Blood pressure cuff and machine #1 ea 06/27/22 09/11/22 08/12/22 Rx duloxetine 20 mg capsule,delayed See Rx Instructions .Route 07/01/22 09/11/22 09/09/22 Rx release .COMPLEX #60 caps tadalafil 20 mg tablet See Rx Instructions .Route 07/10/22 09/11/22 08/12/22 20:00 Rx .COMPLEX #30 tabs sacubitril 97 mg-valsartan 103 mg See Rx Instructions .Route 07/28/22 09/11/22 09/09/22 Rx tablet (Entresto) .COMPLEX #180 tabs amlodipine 5 mg tablet See Rx Instructions .Route 08/05/22 09/11/22 09/09/22 Rx .COMPLEX #90 tabs dulaglutide 0.75 mg/0.5 mL See Rx Instructions .Route 08/05/22 09/11/22 09/09/22 Rx subcutaneous pen injector .COMPLEX #6 mL (Trulicity) metformin 850 mg tablet See Rx Instructions .Route 08/05/22 09/11/22 09/09/22 Rx .COMPLEX #90 tabs o2 at 3L per nasal cannula #1 ea 08/11/22 09/11/22 08/12/22 Rx potassium chloride 20 mEq 20 meq PO DAILY 08/17/22 09/11/22 09/09/22 History tablet,extended release(part/cryst) diphenoxylate-atropine 2.5 1 tab PO Q8H #60 tabs 09/05/22 09/11/22 Unknown Rx mg-0.025 mg tablet ondansetron HCl 8 mg tablet See Rx Instructions .Route 09/05/22 09/11/22 09/09/22 Rx .COMPLEX #20 tabs famotidine 40 mg tablet See Rx Instructions .Route 09/09/22 09/11/22 Unknown History .COMPLEX PRN Acid Reflux ferrous sulfate 325 mg (65 mg 325 mg PO DAILY #30 tabs 09/10/22 09/11/22 Unknown Rx iron) tablet (Feosol) acetaminophen 300 mg-codeine 60 mg 1 tab PO Q8H PRN Pain #90 tabs 09/11/22 Unknown Rx tablet Allergies Allergy/AdvReac Type Severity Reaction Status Date / Time lisinopril AdvReac Mild Coughing Verified 09/09/22 15:04 PFSH Acute PFSH: Medical History (Updated 09/17/22 @ 00:43 by Josias Matthews MD) Acute and chronic respiratory failure with hypoxia Anemia Chronic kidney disease DDD (degenerative disc disease), lumbosacral Erectile dysfunction HTN (hypertension) Idiopathic gout, right ankle and foot Mixed hyperlipidemia Nonischemic cardiomyopathy Nonrheumatic aortic (valve) stenosis Pneumonia Type 2 diabetes mellitus Surgical History History of cardiac pacemaker Hx of arthroscopy of left knee Hx of heart surgery (2017) Aortic valve replacement and aneurysm repair Hx of tooth extraction Family History Mother CAD (coronary artery disease) Brother Cancer Other Hypertension Denies family history of Diabetes Clotting disorder Dementia Chronic kidney disease (CKD) Suicide Anesthesia complication Bleeding disorder Lung disease Stroke Social History Smoking and tobacco status: never smoked Second hand smoke exposure: No Alcohol intake: current Alcohol intake frequency: holidays/special occasions only Adopted: No Caregiver/support person: Yes (spouse) Lives independently: Yes Household members: spouse and children Housing: House Marital status: Number of children: 3 Number of grandchildren: 3 Highest education level completed: 6th Grade service: No Current occupational status: disabled Pets and animals: Yes History of recent travel: No Current gender identity: Male Special pola needs: No Agree to transfusion: Yes Vitals/I&O/Wt Last Vital Signs Pulse 70 09/16/22 23:11 Resp 16 09/16/22 23:11 BP 150/95 09/16/22 23:11 Pulse Ox 95 09/16/22 23:11 O2 Del Method 09/16/22 23:11 O2 Flow Rate 6 09/16/22 23:11 Weight last 48 hrs Weight 113.398 kg Physical Exam Const: COMMON NORMALS: no acute distress and patient oriented x3 HENMT: COMMON NORMALS: normocephalic HEAD & SCALP: normocephalic Eye: COMMON NORMALS: Equal, round and reactive pupils present and EOMs intact bilaterally Neck/C-Spine: COMMON NORMALS: full ROM and no lymphadenopathy Chest: COMMONS NORMALS: normal inspection of the chest Resp: COMMON NORMALS: normal respiratory effort, No retractions and No use of accessory muscles Cardio: COMMON NORMALS: regular rate, regular rhythm, S1 normal heart sound present and S2 normal heart sound present RATE: regular rate RHYTHM: regular rhythm HEART SOUNDS: S1 normal heart sound present and S2 normal heart sound present GI: COMMON NORMALS: Normal to inspection, nondistended, normoactive bowel sounds present, Soft to palpation and non-tender Extremity: NARRATIVE EXTREMITY EXAM: 2+ pitting edema bilateral lower extremity Neuro: COMMON NORMALS: patient oriented x3, CN's II-XII intact bilaterally, moves all extremities and no focal motor deficits Skin: NARRATIVE SKIN EXAM: Right upper quadrant, has area of erythema, petechiae, distributed in the right upper quadrant seems like bruising also Data 09/16/22 21:09 09/16/22 21:09 A&P Assessment and plan (1) Congestive heart failure: (2) CHF exacerbation: (3) Elective replacement indicated for cardiac pacemaker battery at end of lifespan: (4) Systolic congestive heart failure with reduced left ventricular function, NYHA class 4: (5) Nonrheumatic aortic (valve) stenosis: (6) Transaminitis: (7) Obesity: (8) Goals of care, counseling/discussion: (9) Anemia: (10) GERD without esophagitis: (11) Ischemic cardiomyopathy: (12) Chronic kidney disease: (13) HTN (hypertension): Qualifiers: Hypertension type: essential hypertension Qualified Code(s): I10 - Essential (primary) hypertension (14) Type 2 diabetes mellitus: (15) Acute respiratory failure with hypoxia: (16) Goals of care, counseling/discussion: Plan Acute hypoxic respiratory failure -Likely secondary to combined systolic and diastolic CHF -CT angiogram of the chest does show patchy bilateral infiltrates however no fevers, no leukocytosis, Pro-Niels, CRP ordered Plan -Admit to cardiac stepdown unit -Continue BiPAP -Continue Bumex 1 mg every 8 hours -Fluid restrictions 1000 cc -Monitor creatinine, mag, potassium -Serial EKGs, start troponins, telemetry monitoring -Place Salazar catheter -Cardiac echo -Full code -Eliquis for DVT prophylaxis Acute on chronic anemia, following up with Dr. Payne, macrocytic anemia ordered iron studies, Protonix, monitor Hemoccult stool, possibly also component of chronic kidney disease ARUNA on chronic kidney disease -Likely cardiorenal syndrome from CHF as above -We will monitor urine output -Patient did get a CT angiogram through ER, will have to monitor kidney function monitor for contrast-induced nephropathy Type 2 diabetes mellitus, low-dose sliding scale Ischemic cardiomyopathy repeat echo, serial EKGs serial troponins telemetry monitoring Transaminitis, with hyperbilirubinemia -Could be congestive hepatopathy from heart failure but will do a right upper quadrant ultrasound Rash, right upper quadrant, seems almost like a bruise, monitor Goals of care discussion, patient wants to be a full code Attestations Medical Necessity Statement*: Patient is hospitalization for acute hypoxic respiratory failure secondary to systolic and diastolic CHF, inpatient, greater than 2 midnights Coding Level of Care Code Acute Code for [facility] Fwd Diagnoses Congestive heart failure I50.9 CHF exacerbation I50.9 Elective replacement indicated for cardiac pacemaker battery at end of lifespan Z45.010 Systolic congestive heart failure with reduced left ventricular function, NYHA class 4 I50.20 Nonrheumatic aortic (valve) stenosis I35.0 Transaminitis R74.01 Obesity E66.9 Goals of care, counseling/discussion Z71.89 Anemia D64.9 GERD without esophagitis K21.9 Ischemic cardiomyopathy I25.5 Chronic kidney disease N18.9 HTN (hypertension) I10 Hypertension type: essential hypertension Type 2 diabetes mellitus E11.9 Acute respiratory failure with hypoxia J96.01 Goals of care, counseling/discussion Z71.89
[2022-09-17 04:29] LABS: C Reactive Protein 36.7 mg/L (0.0-4.9); Ferritin 990 ng/mL (30-400); Iron 95 ug/dL (59-158); Magnesium 1.9 mg/dL (1.7-2.3)
[2022-09-17 04:35] LABS: Procalcitonin 0.59 ng/mL (0-0.5)
--- NOTE | 2022-09-17 06:47 | USCV_ITS ---
Pawan Marcum Age: 67 Gender: M : 1955 Exam Date: 09/17/2022 09:28 Ordering Phys: Josias Matthews MD Technologist: KYAW Exam Location: [facility] [place] Indication: CHRONIC HEART FAILURE BP: 105 / 71 HR: 70 Rhythm: Atrial fibrillation Technical Quality: Adequate MEASUREMENTS (Male / Female) Normal Values 2D ECHO LVOT Diameter 2.0 cm LV Ejection Fraction MOD 2C 39.1 % LV Ejection Fraction 2C AL 40.7 % LA Diameter 4.2 cm LA Width 4.5 cm LA Height 6.1 cm RA Width 4.2 cm RA Height 5.9 cm Aorta at Sinotubular Diameter 5.4 cm IVC Diameter 2.3 cm M-MODE Aortic Annulus Diameter 3.9 cm LA Ao Ratio MM 1.0 MV E Point Septal Separation 0.4 cm DOPPLER AV Peak Velocity 293.3 cm/s LVOT Peak Velocity 104.0 cm/s AV Area Cont Eq vti 1.1 cm squared AV Area Cont Eq pk 1.1 cm squared MV Peak Velocity 119.0 cm/s MV Area PHT 4.3 cm squared MV E' Velocity 63.0 cm/s Mitral E to MV E' Ratio 15.9 Mitral E to LV E' Lateral Ratio 14.9 Mitral E to LV E' Septal Ratio 17.1 TR Peak Velocity 312.8 cm/s TR Peak Gradient 39.1 mmHg TR Mean Velocity 235.6 cm/s TR Mean Gradient 23.8 mmHg TR Velocity Time Integral 89.3 cm TV Peak E Velocity 55.0 cm/s Right Atrial Pressure 8.0 mmHg Pulmonary Artery Systolic Pressu 47.1 mmHg PV Peak Velocity 120.0 cm/s RV Acceleration Time 0.1 s RV Ejection Time 0.3 s RV AcT/ET 0.4 FINDINGS Left Ventricle Left ventricle is normal in size. LV systolic function is moderately reduced with EF of 35 to 40%. Moderate global hypokinesis seen. Right Ventricle Appears hypokinetic Right Atrium Normal in size. Pacemaker lead is seen Left Atrium Dilated Mitral Valve Mild mitral annular calcification. Mild mitral regurgitation. Aortic Valve Bioprosthetic aortic valve is well-seated. aortic valve area 1.16 cm squared with mean gradient across aortic valve of 17.8 mmHg. DVI is normal and is 0.36 Tricuspid Valve Mild tricuspid regurgitation. RVSP is 45 to 50 mmHg. This is consistent with moderate pulmonary hypertension. Pulmonic Valve Not well visualized Pericardium Grossly normal Aorta Ascending aorta is dilated with a diameter of 5cm IVC Appears dilated CONCLUSIONS LV systolic function is moderately reduced with EF of 35 to 40%. Moderate global hypokinesis seen. RV appears hypokinetic Dilated left atrium Mild mitral regurgitation Bioprosthetic aortic valve is functioning appropriately. DVI is normal at 0.36. Aortic valve area is 1.16 cm squared with a mean gradient across aortic valve of 17.8 mmHg. Mild mild tricuspid regurgitation Moderate pulmonary hypertension Ascending aorta is dilated with a diameter of 5 cm Compared to prior echocardiogram from 09/19/2021, LV systolic function appears to have decreased and is 35 to 40% now. Ascending aorta also appears to be significantly dilated now with diameter of 5 cm Sagar Newell MD (Electronically Signed) Final Date: 17 September 2022 18:14 S
[2022-09-17 07:19] LABS: Estmated Average Glucose 126
[2022-09-17 07:21] LABS: Cholesterol 78 mg/dL (0-200); HDL Cholesterol 13 mg/dL (60-100); LDL Cholesterol Calculated 43 mg/dL (50-129); LDL HDL Ratio 3.31 RATIO (0.00-3.22); Thyroid Stimulating Hormone 1.75 uIU/mL (0.27-4.20); Triglycerides 109 mg/dL (0-150)
[2022-09-17] MEDS: bumetanide 0.25 mg/mL SDV 4 mL 1 MG IVP ×3 (07:45→23:18)
[2022-09-17] MEDS: pantoprazole 40 mg SDV IVP ×2 (07:46→19:39)
[2022-09-17 07:53] LABS: Glucose Point of Care 109 mg/dL (70-110)
[2022-09-17] MEDS: pregabalin 50 mg Capsule 100 MG PO ×3 (09:13→21:33)
[2022-09-17] MEDS: allopurinol 300 mg Tablet PO (09:14)
[2022-09-17] MEDS: potassium chloride ER 20 mEq Tablet PO (09:14)
[2022-09-17] MEDS: metoprolol succinate ER (24 HR) 100 mg Tablet PO (09:14)
[2022-09-17] MEDS: ferrous sulfate EC 325 mg Tablet PO (09:15)
[2022-09-17] MEDS: duloxetine 20 mg Capsule PO ×2 (09:15→18:07)
[2022-09-17] MEDS: apixaban 5 mg Tablet PO ×2 (09:15→18:07)
[2022-09-17] MEDS: atorvastatin 40 mg Tablet 20 MG PO (09:16)
[2022-09-17] MEDS: sacubitril/valsartan 24-26 mg Tablet 4 EACH PO ×2 (10:23→18:07)
[2022-09-17 11:32] LABS: Glucose Point of Care 194 mg/dL (70-110)
--- NOTE | 2022-09-17 11:48 | PC.NURSE ---
PT declined cobb cath placement. pt is using urinals at bedside
[2022-09-17] MEDS: insulin lispro 100 unit/1 mL SUBCUT (13:15)
[2022-09-17 17:54] LABS: Glucose Point of Care 117 mg/dL (70-110)
--- NOTE | 2022-09-17 18:29 | PC.NURSE ---
received from er via stretcher at 1730.report received.pt is alert and oriented x 4.refused cobb catheter in the er.sr on monitor.deneis sob or cp at this time.states feels much better now than at admission to er.oriented to room environment.instructed to notify staff for any sob,cp,or for any concerns at all.pt verb understanding of instructions.
--- NOTE | 2022-09-17 19:22 | P.PN_ITS ---
Subjective Subjective: He is feeling slightly better with BiPAP and received treatment. Has barely any cough. Not producing much phlegm. Denies chest pain.No headache, nausea vomiting or diarrhea. Vitals/I&O/Wt Last Vital Signs Pulse 70 09/17/22 16:00 Resp 20 H 09/17/22 15:32 BP 103/64 09/17/22 16:00 Pulse Ox 93 09/17/22 16:00 O2 Del Method 09/17/22 16:00 O2 Flow Rate 4 09/17/22 16:00 FiO2 4 09/17/22 17:30 09/17/22 09/17/22 09/17/22 06:59 14:59 22:59 Output Total 600 / 600 400 / 400 Balance -600 / -600 -400 / -400 Weight last 48 hrs Weight 113.398 kg Physical Exam Const: COMMON NORMALS: patient oriented x3 and alert GENERAL APPEARANCE: cooperative ORIENTATION/CONSCIOUSNESS: Yes awake HENMT: COMMON NORMALS: oropharynx normal Neck/C-Spine: COMMON NORMALS: no JVD Resp: COMMON NORMALS: normal respiratory effort AUSCULTATION: diminished lung sounds Cardio: COMMON NORMALS: no JVD, regular rhythm, S1 normal heart sound present, S2 normal heart sound present and No murmurs present (Cardio) RHYTHM: regular rhythm HEART SOUNDS: S1 normal heart sound present and S2 normal heart sound present GI: COMMON NORMALS: Normal to inspection, nondistended, normoactive bowel s ounds present, Soft to palpation and non-tender PALPATION: Yes Soft to pa lpation Extremity: COMMON NORMALS: no joint enlargement GENERAL: Yes edema (3+ BL) Neuro: COMMON NORMALS: patient oriented x3 and moves all extremities SENSORIUM/ORIENTATION: Yes alert Skin: COMMON NORMALS: no rashes or lesions noted GENERAL SKIN EXAM: no r ashes or lesions noted Data 09/16/22 21:09 09/16/22 21:09 A&P Assessment and plan (1) CHF exacerbation: This morning continues on BiPAP support, later weaned down to nasal cannula. Continue to mix IV. Monitor I&O. Moderately reduced EF on echo, 35-40%, decreased from prior. Moderate global hypokinesis. RV appears hypokinetic. Dilated left atrium. Mild mitral regurgitation. Bioprosthetic aortic valve functioning properly. Mild TVR. Mild pulmonary hypertension. Ascending aorta dilated with diameter of 5 cm. Some history of ischemic cardiomyopathy is reported in PMH, also reported CABG and H&P, although I do not see this in cardiology notes. With decompensated CHF, new decrease in ejection fraction will ask cardiology for consultation. (2) Congestive heart failure: (3) Elective replacement indicated for cardiac pacemaker battery at end of lifespan: (4) Systolic congestive heart failure with reduced left ventricular function, NYHA class 4: (5) Nonrheumatic aortic (valve) stenosis: (6) Transaminitis: (7) Obesity: (8) Goals of care, counseling/discussion: (9) Anemia: (10) GERD without esophagitis: (11) Ischemic cardiomyopathy: (12) Chronic kidney disease: (13) HTN (hypertension): Qualifiers: Hypertension type: essential hypertension Qualified Code(s): I10 - Essential (primary) hypertension (14) Type 2 diabetes mellitus: (15) Acute respiratory failure with hypoxia: (16) Ascending aortic aneurysm: Noted aneurysm 5.[address] Also noted on echo. Unchanged from prior. Will n eed follow-up. Plan Acute on chronic anemia, following up with Dr. Payne, macrocytic anemia ordered iron studies, Protonix, monitor Hemoccult stool, possibly also component of chronic kidney disease ARUNA on chronic kidney disease: Reassess renal function -Likely cardiorenal syndrome from CHF as above -We will monitor urine output -Patient did get a CT angiogram through ER, will have to monitor kidney function monitor for contrast-induced nephropathy Type 2 diabetes mellitus, low-dose sliding scale Transaminitis, with hyperbilirubinemia: Follow-up liver parameters -Could be congestive hepatopathy from heart failure but will do a right upper quadrant ultrasound Rash, right upper quadrant: She reports petechial rash with thrombocytopenia for which she follows with hematology. Goals of care discussion, patient wants to be a full code Attestations Medical Necessity Statement*: Continue admission for assessment and management of acute decompensated CHF, new decrease in ejection fraction with underlying multiple cardiac comorbidities as above. Coding Level of Care Code Acute Code for g Fwd Diagnoses CHF exacerbation I50.9 Congestive heart failure I50.9 Elective replacement indicated for cardiac pacemaker battery at end of lifespan Z45.010 Systolic congestive heart failure with reduced left ventricular function, NYHA class 4 I50.20 Nonrheumatic aortic (valve) stenosis I35.0 Transaminitis R74.01 Obesity E66.9 Goals of care, counseling/discussion Z71.89 Anemia D64.9 GERD without esophagitis K21.9 Ischemic cardiomyopathy I25.5 Chronic kidney disease N18.9 HTN (hypertension) I10 Hypertension type: essential hypertension Type 2 diabetes mellitus E11.9 Acute respiratory failure with hypoxia J96.01 Ascending aortic aneurysm I71.21
[2022-09-17 20:34] LABS: Glucose Point of Care 142 mg/dL (70-110)
[2022-09-18] VITALS (34 sets, daily range): BP systolic 90–158; BP diastolic 62–90; PULSE 70–72; RESP 12–24; TEMP 36.4–37; O2SAT 89–100
[2022-09-18 03:55] LABS: Basophils % 0.1 %; Eosinophils # 0.1 10^3/uL (0.0-0.8); Eosinophils % 1.5 %; Hematocrit 26.6 % (42.0-52.0); Lymphocytes # 1.3 10^3/uL (0.8-4.8); Lymphocytes % 19.2 %; Mean Corpuscular HGB Conc 30.1 g/dL (30.0-36.0); Mean Corpuscular Hemoglobin 32.5 pg (28.0-34.0); Mean Corpuscular Volume 108.1 fl (80-94); Mean Platelet Volume 10.5 fL (7.4-10.4); Monocytes # 0.3 10^3/uL (0.2-0.9); Monocytes % 4.7 %; Neutrophils # 5.07 10^3/uL (1.8-7.7); Neutrophils % 73.8 %; Nucleated Red Blood Cells % 0.4 %; Platelet Count 119 10^3/cmm (130-400); Red Blood Count 2.46 10^6/uL (4.1-5.3); Red Cell Distribution Width 20.4 % (12.1-15.1); White Blood Count 6.9 10^3/uL (4.0-10.0)
[2022-09-18 04:32] LABS: Alanine Aminotransferase 58 U/L (0-41); Albumin Level 2.7 g/dL (3.5-5.2); Alkaline Phosphatase 39 U/L (40-130); Anion Gap 10.1 (5-19); Aspartate Amino Transferase 83 U/L (0-40); Blood Urea Nitrogen 50 mg/dL (8-23); Calcium 7.9 mg/dL (8.5-10.5); Carbon Dioxide 30 mmol/L (22-29); Chloride 96 mmol/L (98-107); Globulin 5.3 g/dL (1.3-4.6); Glomerular Filtration Rate 31.9 mL/min (90-130); Glucose 100 mg/dL (65-115); Osmolality Calculated 287 mOsm/kg (285-295); Potassium 4.1 mmol/L (3.5-5.1); Sodium 132 mmol/L (136-145); Total Bilirubin 2.1 mg/dL (0.15-1.2)
[2022-09-18 06:23] LABS: Glucose Point of Care 117 mg/dL (70-110)
[2022-09-18] MEDS: bumetanide 0.25 mg/mL SDV 4 mL 1 MG IVP ×3 (06:38→23:32)
[2022-09-18] MEDS: pantoprazole 40 mg SDV IVP ×2 (09:15→19:59)
[2022-09-18] MEDS: allopurinol 300 mg Tablet PO (10:12)
[2022-09-18] MEDS: atorvastatin 40 mg Tablet 20 MG PO (10:12)
[2022-09-18] MEDS: apixaban 5 mg Tablet PO ×2 (10:12→17:44)
[2022-09-18] MEDS: potassium chloride ER 20 mEq Tablet PO (10:12)
[2022-09-18] MEDS: duloxetine 20 mg Capsule PO ×2 (10:13→17:44)
[2022-09-18] MEDS: pregabalin 50 mg Capsule 100 MG PO ×3 (10:13→20:51)
[2022-09-18] MEDS: ferrous sulfate EC 325 mg Tablet PO (10:14)
--- NOTE | 2022-09-18 10:26 | PC.CHAP ---
Pastoral Care Encounter/Spiritual Assessment Type of Contact [] Declined shank burnisher visit [] Patient/Family/Request visit [] Outpatient visit [] Follow-up visit [] Physician referral [] Code/Alert [x] Routine visit [] Staff referral [] Actively dying [] Patient sleeping [] Family support [] [] Out of room [] Palliative care [x] [] Receiving care in room [] Pre-surgical visit [] Trauma [] Long length of stay [] ICU visit [] Other: Relational/Emotional Strength [x] Patient feels connected with others/family/visitors/staff [] Distress [] Loneliness/isolation [] Abandonment Spirituality of Patient [x] Person of Karla [] Attends Religion of their Karla [x] Believes in Prayer [] Reads Bible or Taoism materials [] There are Spiritual issues to be addressed [employer]iler [employer] Interventions [x] Prayer [x] Active listening [x] Non-anxious presence [x] Spiritual/emotional support [] Crisis/trauma care [x] Spiritual counseling [] Bereavement support [] Provided bereavement packet [] Provided Bible/devotional materials [] Provided toy/stuffed animal, coloring book to patient or family member [] Provided Communion [] Anointing/[place] [] Salvation [x] Completed spiritual assessment [] Other: Impact on Illness or Injury [] Angry [] Fearful [] Anxious [] Often cries [] Exhaustion [] Unable to work [] Unable to attend spiritism [] Unable to walk/stand [] Unable to read [] Unable to drive [] Unable to eat/drink [] Unable to sleep [] Unable to be with family [] Patient intubated [] Other: Summary alerges passing out dizzy spells has a good attitude well go home Time spent with patient 10 mins
--- NOTE | 2022-09-18 10:52 | PM.CONSULT ---
Providers/Reason For Consult Consulting Physician/Specialty*: Sagar Newell MD/ Cardiology Reason for Consult*: Congestive heart failure/ EF drop Requesting Physician: Dr Krishnamurthy Attending Physician: Ayush Krishnamurthy Primary Care Provider: Diana Butcher MD History of Present Illness History of Present Illness Pawan Marcum is a 67 year old male with past medical history of bioprosthetic aortic valve and aneurysm repair, atrial fibrillation, hypertension, hyperlipidemia, CKD who has presented to the hospital with worsening shortness of breath and lower extremity edema. Echo shows a drop in LV systolic function and is 35-40%. Denies chest pain. EKG not showing ischemic changes. Troponins have not trended up significantly. ECHO also showed ascending aorta was dilated with diameter of 5cm. Review of Systems General: Reports: 10 or more systems reviewed and unremarkable except in HPI and below Card: Reports: irregular heart rhythm, swelling of feet/ankles and dyspnea on exertion; Denies: chest pain, palpitations, lightheadedness, syncope or pre-syncope Resp: Reports: dyspnea Neuro: Denies: numbness in extremities Medications/Allergies Home Medications Medication Instructions Recorded Confirmed Last Taken Type diabetic shoes with inserts #1 ea 02/28/21 09/17/22 08/12/22 Rx Diabetic shoes with inserts #1 ea 12/05/21 09/17/22 08/12/22 Rx metolazone 2.5 mg tablet 2.5 mg PO DAILY 06/18/22 09/17/22 08/12/22 20:00 History Blood pressure cuff and machine #1 ea 06/27/22 09/17/22 08/12/22 Rx tadalafil 20 mg tablet See Rx Instructions .Route 07/10/22 09/17/22 08/12/22 20:00 Rx .COMPLEX #30 tabs o2 at 3L per nasal cannula #1 ea 08/11/22 09/17/22 08/12/22 Rx potassium chloride 20 mEq 20 meq PO BID 08/17/22 09/17/22 09/09/22 History tablet,extended release(part/cryst) famotidine 40 mg tablet 40 mg PO BID 09/09/22 09/17/22 Unknown History ferrous sulfate 325 mg (65 mg 325 mg PO DAILY #30 tabs 09/10/22 09/17/22 Unknown Rx iron) tablet (Feosol) acetaminophen 300 mg-codeine 60 mg 1 tab PO Q8H PRN Pain #90 tabs 09/11/22 09/17/22 Unknown Rx tablet allopurinol 300 mg tablet 300 mg PO DAILY 09/17/22 09/17/22 Unknown History amlodipine 5 mg tablet 5 mg PO DAILY 09/17/22 09/17/22 Unknown History apixaban 5 mg tablet (Eliquis) 5 mg PO BID 09/17/22 09/17/22 Unknown History atorvastatin 20 mg tablet 20 mg PO DAILY 09/17/22 09/17/22 Unknown History dulaglutide 0.75 mg/0.5 mL 0.75 mg SUBCUT Q7D 09/17/22 09/17/22 Unknown History subcutaneous pen injector (Trulicity) duloxetine 20 mg capsule,delayed 20 mg PO BID 09/17/22 09/17/22 Unknown History release fenofibrate 160 mg tablet 160 mg PO DAILY 09/17/22 09/17/22 Unknown History furosemide 20 mg tablet 40 mg PO DAILY 09/17/22 09/17/22 Unknown History metformin 850 mg tablet 850 mg PO DAILY 09/17/22 09/17/22 Unknown History metoprolol succinate 100 mg 100 mg PO DAILY 09/17/22 09/17/22 Unknown History tablet,extended release 24 hr ondansetron HCl 8 mg tablet 8 mg PO Q8H PRN Nausea And Vomiting 09/17/22 09/17/22 Unknown History pregabalin 100 mg capsule 100 mg PO TID 09/17/22 09/17/22 Unknown History sacubitril 49 mg-valsartan 51 mg 1 tab PO BID 09/17/22 09/17/22 Unknown History tablet (Entresto) Allergies Allergy/AdvReac Type Severity Reaction Status Date / Time lisinopril AdvReac Mild Coughing Verified 09/17/22 08:32 Current Medications Generic Name Dose Route Start Last Admin Trade Name Freq PRN Reason Stop Dose Admin Allopurinol 300 mg 09/17/22 09:00 09/18/22 10:12 Allopurinol 300 Mg Tablet PO 300 mg DAILY JOSÉ Administration Apixaban 5 mg 09/17/22 09:00 09/18/22 10:12 Apixaban 5 Mg Tablet PO 5 mg BID JOSÉ Administration Atorvastatin Calcium 20 mg 09/17/22 09:00 09/18/22 10:12 Atorvastatin 40 Mg Tablet PO 20 mg DAILY JOSÉ Administration Bumetanide 1 mg 09/17/22 07:15 09/18/22 06:38 Bumetanide 0.25 Mg/Ml Sdv 4 Ml IVP 1 mg Q8H JOSÉ Administration Duloxetine HCl 20 mg 09/17/22 09:00 09/18/22 10:13 Duloxetine 20 Mg Capsule PO 20 mg BID JOSÉ Administration Ferrous Sulfate 325 mg 09/17/22 09:00 09/18/22 10:14 Ferrous Sulfate Ec 325 Mg Tablet PO 325 mg DAILY JOSÉ Administration Insulin Human Lispro 0 unit 09/17/22 08:00 09/18/22 09:15 Insulin Lispro 100 Unit/1 Ml SUBCUT Not Given [facility] Protocol Metoprolol Succinate 100 mg 09/17/22 09:00 09/17/22 09:14 Metoprolol Succinate Er (24 Hr) 100 Mg Tablet PO 100 mg DAILY JOSÉ Administration Non-Formulary Medication 1 tab 09/17/22 09:00 09/18/22 10:14 Fenofibrate PO Not Given DAILY JOSÉ Pantoprazole Sodium 40 mg 09/17/22 20:00 09/18/22 09:15 Pantoprazole 40 Mg Sdv IVP 40 mg Q12H JOSÉ Administration Potassium Chloride 20 meq 09/17/22 09:00 09/18/22 10:12 Potassium Chloride Er 20 Meq Tablet PO 20 meq DAILY JOSÉ Administration Pregabalin 100 mg 09/17/22 09:00 09/18/22 10:13 Pregabalin 50 Mg Capsule PO 100 mg TID JOSÉ Administration Sacubitril/Valsartan 4 each 09/17/22 09:00 09/17/22 18:07 Sacubitril/Valsartan 24-26 Mg Tablet PO 4 each BID JOSÉ Administration PFSH Acute PFSH: Medical History Acute and chronic respiratory failure with hypoxia Anemia Chronic kidney disease DDD (degenerative disc disease), lumbosacral Erectile dysfunction HTN (hypertension) Idiopathic gout, right ankle and foot Mixed hyperlipidemia Nonischemic cardiomyopathy Nonrheumatic aortic (valve) stenosis Pneumonia Type 2 diabetes mellitus Surgical History History of cardiac pacemaker Hx of arthroscopy of left knee Hx of heart surgery (2017) Aortic valve replacement and aneurysm repair Hx of tooth extraction Family History Mother CAD (coronary artery disease) Brother Cancer Other Hypertension Denies family history of Diabetes Clotting disorder Dementia Chronic kidney disease (CKD) Suicide Anesthesia complication Bleeding disorder Lung disease Stroke Social History Smoking and tobacco status: never smoked Second hand smoke exposure: No Alcohol intake: current Alcohol intake frequency: holidays/special occasions only Adopted: No Caregiver/support person: Yes (spouse) Lives independently: Yes Household members: spouse and children Housing: House Marital status: Number of children: 3 Number of grandchildren: 3 Highest education level completed: 6th Grade service: No Current occupational status: disabled Pets and animals: Yes History of recent travel: No Current gender identity: Male Special pola needs: No Agree to transfusion: Yes Vitals/I&O/Wt Last Vital Signs Temp 98.2 F 09/18/22 07:09 Pulse 72 09/18/22 07:09 Resp 16 09/18/22 07:09 BP 109/72 09/18/22 07:09 Pulse Ox 91 09/18/22 07:09 O2 Del Method 09/18/22 04:03 O2 Flow Rate 4 09/18/22 04:03 FiO2 4 09/18/22 07:53 09/17/22 09/18/22 09/18/22 22:59 06:59 14:59 Intake Total 360 / 360 Output Total 400 / 400 1600 / 2000 1100 / 1100 Balance -400 / -400 -1600 / -2000 -740 / -740 Weight last 48 hrs Weight 250 lb Physical Exam Narrative: GENERAL: Patient is alert, awake and oriented x3. [] NECK: No jugular vein distension. [] HEENT: No cyanosis. No icterus. No pallor. [] HEART: Regular S1 and S2. No murmur, rub or gallop. [] LUNGS: Diminished breath sounds CENTRAL NERVOUS SYSTEM: Grossly nonfocal. [] EXTREMITIES: Lower extremities with 1+ edema bilaterally. Data 09/18/22 02:21 09/18/22 02:21 A&P Assessment and plan (1) Type 2 diabetes mellitus: (2) HTN (hypertension): Qualifiers: Hypertension type: essential hypertension Qualified Code(s): I10 - Essential (primary) hypertension (3) CHF exacerbation: Plan Patient has recent drop in LV systolic function. Will need ischemic work-up to evaluate that. Given renal dysfunction, once he is able to lay down flat, we can proceed with stress test. Continue IV diuresis. Close monitoring of renal function. Strict I&O's Low-sodium diet Thank you for involving us with care of this patient. We will continue to follow. Please call with questions. Consult Attestations Medical Necessity Statement: Care expected to cross 2 midnights. Coding Level of Care Code Acute Code for [facility] Diagnoses Type 2 diabetes mellitus E11.9 HTN (hypertension) I10 Hypertension type: essential hypertension CHF exacerbation I50.9
[2022-09-18 16:40] LABS: Glucose Point of Care 133 mg/dL (70-110)
[2022-09-18 21:07] LABS: Glucose Point of Care 125 mg/dL (70-110)
--- NOTE | 2022-09-18 21:20 | P.PN_ITS ---
Subjective Subjective: He is overall feeling better. Oxygenation is improving. He denies chest pain. He is down to 4 L nasal cannula. At home uses 3 L. Edema is slowly improving. Vitals/I&O/Wt Last Vital Signs Temp 98.0 F 09/18/22 20:00 Pulse 70 09/18/22 20:00 Resp 16 09/18/22 20:00 BP 108/75 09/18/22 20:00 Pulse Ox 95 09/18/22 20:00 O2 Del Method 09/18/22 20:00 O2 Flow Rate 4 09/18/22 20:00 FiO2 35 09/18/22 14:48 09/18/22 09/18/22 09/18/22 06:59 14:59 22:59 Intake Total 600 / 600 Output Total 1599 / 1999 1100 / 1100 1325 / 2425 Balance -1600 / -1999 -500 / -500 -1325 / -1825 Physical Exam Const: COMMON NORMALS: patient oriented x3 and alert GENERAL APPEARANCE: cooperative ORIENTATION/CONSCIOUSNESS: Yes awake HENMT: COMMON NORMALS: oropharynx normal Neck/C-Spine: COMMON NORMALS: no JVD Resp: COMMON NORMALS: normal respiratory effort AUSCULTATION: diminished lung sounds Cardio: COMMON NORMALS: no JVD, regular rhythm, S1 normal heart sound present, S2 normal heart sound present and No murmurs present (Cardio) RHYTHM: regular rhythm HEART SOUNDS: S1 normal heart sound present and S2 normal heart sound present GI: COMMON NORMALS: Normal to inspection, nondistended, normoactive bowel sounds present, Soft to palpation and non-tender PALPATION: Yes Soft to palpation Extremity: COMMON NORMALS: no joint enlargement GENERAL: Yes edema (2+ BL) Neuro: COMMON NORMALS: patient oriented x3 and moves all extremities SENSORIUM/ORIENTATION: Yes alert Skin: COMMON NORMALS: no rashes or lesions noted GENERAL SKIN EXAM: no rashes or lesions noted Data 09/18/22 02:21 09/18/22 02:21 A&P Assessment and plan (1) CHF exacerbation: Overall improving, although still persistent significant bilateral edema. Discussed noted diminished ejection fraction on TTE. Cardiology consultation appreciated. Will also need further assessment once volume optimized with stress test. Off BiPAP support, later weaned down to nasal cannula. Continue to mix IV. Monitor I&O. Moderately reduced EF on echo, 35-40%, decreased from prior. Moderate global hypokinesis. RV appears hypokinetic. Dilated left atrium. Mild mitral regurgitation. Bioprosthetic aortic valve functioning properly. Mild TVR. Mild pulmonary hypertension. Ascending aorta dilated with diameter of 5 cm. Some history of ischemic cardiomyopathy is reported in PMH, also reported CABG and H&P, although I do not see this in cardiology notes. With decompensated CHF, new decrease in ejection fraction. Appreciate cardiology for consultation. (2) Congestive heart failure: (3) Elective replacement indicated for cardiac pacemaker battery at end of lif espan: (4) Systolic congestive heart failure with reduced left ventricular function, NYHA class 4: (5) Nonrheumatic aortic (valve) stenosis: (6) Transaminitis: (7) Obesity: (8) Goals of care, counseling/discussion: (9) Anemia: (10) GERD without esophagitis: (11) Ischemic cardiomyopathy: (12) Chronic kidney disease: (13) HTN (hypertension): Qualifiers: Hypertension type: essential hypertension Qualified Code(s): I10 - Essential (primary) hypertension (14) Type 2 diabetes mellitus: (15) Acute respiratory failure with hypoxia: (16) Ascending aortic aneurysm: Noted aneurysm 5.[address] Also noted on echo. Unchanged from prior. Will need follow-up. Plan Appears may be having component of bronchitis with staff aureus. Staff aureus growing in sputum culture. Added ceftriaxone. Acute on chronic anemia, following up with Dr. Payne, macrocytic anemia ordered iron studies, Protonix, monitor Hemoccult stool, possibly also component of chronic kidney disease ARUNA on chronic kidney disease: Reassess renal function -Likely cardiorenal syndrome from CHF as above -We will monitor urine output -Patient did get a CT angiogram through ER, will have to monitor kidney function monitor for contrast-induced nephropathy Type 2 diabetes mellitus, low-dose sliding scale Transaminitis, with hyperbilirubinemia: Follow-up liver parameters -Could be congestive hepatopathy from heart failure but will do a right upper quadrant ultrasound Rash, right upper quadrant: reports petechial rash with thrombocytopenia for which she follows with hematology. Goals of care discussion, patient wants to be a full code Attestations Medical Necessity Statement*: Continue admission for optimization of volume status with acute CHF decompensation, further assessment for ischemic heart disease once volume optimized. Coding Level of Care Code Acute Code for [facility] Diagnoses CHF exacerbation I50.9 Congestive heart failure I50.9 Elective replacement indicated for cardiac pacemaker battery at end of lifespan Z45.010 Systolic congestive heart failure with reduced left ventricular function, NYHA class 4 I50.20 Nonrheumatic aortic (valve) stenosis I35.0 Transaminitis R74.01 Obesity E66.9 Goals of care, counseling/discussion Z71.89 Anemia D64.9 GERD without esophagitis K21.9 Ischemic cardiomyopathy I25.5 Chronic kidney disease N18.9 HTN (hypertension) I10 Hypertension type: essential hypertension Type 2 diabetes mellitus E11.9 Acute respiratory failure with hypoxia J96.01 Ascending aortic aneurysm I71.21
[2022-09-18] MEDS: cefTRIAXone 1,000 MG in sodium chloride 0.9% (plus) 50 ML 100 MG IV (22:08)
[2022-09-19] VITALS (11 sets, daily range): BP systolic 91–105; BP diastolic 59–73; PULSE 70–74; RESP 16–25; TEMP 36.3–36.7; O2SAT 93–97
[2022-09-19 04:22] LABS: Basophils % 0.2 %; Eosinophils # 0.1 10^3/uL (0.0-0.8); Eosinophils % 1.1 %; Hematocrit 28.5 % (42.0-52.0); Hemoglobin 8.5 g/dL (11.7-16.6); Lymphocytes # 1.7 10^3/uL (0.8-4.8); Lymphocytes % 20.5 %; Mean Corpuscular HGB Conc 29.8 g/dL (30.0-36.0); Mean Corpuscular Hemoglobin 32.7 pg (28.0-34.0); Mean Corpuscular Volume 109.6 fl (80-94); Mean Platelet Volume 10.6 fL (7.4-10.4); Monocytes # 0.4 10^3/uL (0.2-0.9); Monocytes % 4.4 %; Nucleated Red Blood Cells % 0 %; Platelet Count 126 10^3/cmm (130-400); Red Cell Distribution Width 20.3 % (12.1-15.1); White Blood Count 8.4 10^3/uL (4.0-10.0)
[2022-09-19 04:50] LABS: Alanine Aminotransferase 51 U/L (0-41); Albumin Level 2.8 g/dL (3.5-5.2); Alkaline Phosphatase 43 U/L (40-130); Anion Gap 10.7 (5-19); Aspartate Amino Transferase 62 U/L (0-40); Blood Urea Nitrogen 51 mg/dL (8-23); Calcium 8.3 mg/dL (8.5-10.5); Carbon Dioxide 31 mmol/L (22-29); Chloride 94 mmol/L (98-107); Globulin 5.6 g/dL (1.3-4.6); Glomerular Filtration Rate 30.2 mL/min (90-130); Glucose 88 mg/dL (65-115); Osmolality Calculated 285 mOsm/kg (285-295); Potassium 4.7 mmol/L (3.5-5.1); Sodium 131 mmol/L (136-145); Total Bilirubin 1.4 mg/dL (0.15-1.2); Total Protein 8.4 g/dL (6.6-8.7)
[2022-09-19 06:52] LABS: Glucose Point of Care 102 mg/dL (70-110)
[2022-09-19] MEDS: bumetanide 0.25 mg/mL SDV 4 mL 1 MG IVP ×2 (07:03→13:50)
[2022-09-19] MEDS: pantoprazole 40 mg SDV IVP ×2 (07:48→20:35)
[2022-09-19] MEDS: pregabalin 50 mg Capsule 100 MG PO ×3 (09:02→20:34)
[2022-09-19] MEDS: ferrous sulfate EC 325 mg Tablet PO (09:02)
[2022-09-19] MEDS: duloxetine 20 mg Capsule PO ×2 (09:02→18:07)
[2022-09-19] MEDS: atorvastatin 40 mg Tablet 20 MG PO (09:02)
[2022-09-19] MEDS: apixaban 5 mg Tablet PO ×2 (09:02→18:07)
[2022-09-19] MEDS: allopurinol 300 mg Tablet PO (09:02)
[2022-09-19] MEDS: potassium chloride ER 20 mEq Tablet PO (09:03)
[2022-09-19 11:30] LABS: Glucose Point of Care 128 mg/dL (70-110)
--- NOTE | 2022-09-19 13:00 | PC.NURSE ---
spoke with Dr. Newell during rounding instructions to decrease metoprolol does to 50mg daily, Bumex does to BID and entresto to 1 tab BID
--- NOTE | 2022-09-19 13:12 | P.PN_ITS ---
Subjective Subjective: He is overall doing better in terms of his breathing. Still requiring 4 L nasal cannula oxygen. Denies chest pain. He has discussed with cardiology regarding his condition, continue treatment plan and subsequent plan for additional assessment with stress testing. Vitals/I&O/Wt Last Vital Signs Temp 97.5 F L 09/19/22 07:27 Pulse 70 09/19/22 12:06 Resp 16 09/19/22 12:06 BP 91/63 09/19/22 12:06 Pulse Ox 94 09/19/22 12:06 O2 Del Method 09/19/22 07:27 O2 Flow Rate 4 09/18/22 20:00 FiO2 35 09/19/22 00:15 09/18/22 09/19/22 09/19/22 22:59 06:59 14:59 Intake Total 50 / 650 200 / 850 480 / 480 Output Total 1325 / 2425 950 / 3375 575 / 575 Balance -1275 / -1775 -750 / -2525 -95 / -95 Physical Exam Narrative: Accompanied by his daughter at bedside. Const: COMMON NORMALS: patient oriented x3 and alert GENERAL APPEARANCE: cooperative ORIENTATION/CONSCIOUSNESS: Yes awake HENMT: COMMON NORMALS: oropharynx normal Neck/C-Spine: COMMON NORMALS: no JVD Resp: COMMON NORMALS: normal respiratory effort AUSCULTATION: diminished lung sounds (Today with better air entry.) Cardio: COMMON NORMALS: no JVD, regular rhythm, S1 normal heart sound present, S2 normal heart sound present and No murmurs present (Cardio) RHYTHM: regular rhythm HEART SOUNDS: S1 normal heart sound present and S2 normal heart sound present GI: COMMON NORMALS: Normal to inspection, nondistended, normoactive bowel sounds present, Soft to palpation and non-tender PALPATION: Yes Soft to palpation Extremity: COMMON NORMALS: no joint enlargement GENERAL: Yes edema (2+ BL) Neuro: COMMON NORMALS: patient oriented x3 and moves all extremities SENSORIUM/ORIENTATION: Yes alert Skin: COMMON NORMALS: no rashes or lesions noted GENERAL SKIN EXAM: no rashes or lesions noted Data 09/19/22 03:22 09/19/22 03:22 A&P Assessment and plan (1) CHF exacerbation: Follow-up status gradually improving. In negative balance. Is hypotensive, however, and metoprolol and Entresto had to be held this morning. Overall improving, although still persistent significant bilateral edema. Discussed noted diminished ejection fraction on TTE. Cardiology consultation appreciated. Will also need further assessment once volume optimized with stress test. Off BiPAP support, on nasal cannula. Continue to wean down as tolerating. Monitor I&O. Moderately reduced EF on echo, 35-40%, decreased from prior. Moderate global hypokinesis. RV appears hypokinetic. Dilated left atrium. Mild mitral regurgitation. Bioprosthetic aortic valve functioning properly. Mild TVR. Mild pulmonary hypertension. Ascending aorta dilated with diameter of 5 cm. Some history of ischemic cardiomyopathy is reported in PMH, also reported CABG and H&P, although I do not see this in cardiology notes. With decompensated CHF, new decrease in ejection fraction. Appreciate cardiology for consultation. (2) Congestive heart failure: (3) Elective replacement indicated for cardiac pacemaker battery at end of lifespan: (4) Systolic congestive heart failure with reduced left ventricular function, NYHA class 4: (5) Nonrheumatic aortic (valve) stenosis: (6) Transaminitis: (7) Obesity: (8) Goals of care, counseling/discussion: (9) Anemia: (10) GERD without esophagitis: (11) Ischemic cardiomyopathy: (12) Chronic kidney disease: (13) HTN (hypertension): Qualifiers: Hypertension type: essential hypertension Qualified Code(s): I10 - Essential (primary) hypertension (14) Type 2 diabetes mellitus: (15) Acute respiratory failure with hypoxia: (16) Ascending aortic aneurysm: Noted aneurysm 5.[address] Also noted on echo. Unchanged from prior. Will need follow-up. Plan Appears may be having component of bronchitis with staff aureus. Staff aureus growing in sputum culture. Added ceftriaxone. Acute on chronic anemia, following up with Dr. Payne, macrocytic anemia ordered iron studies, Protonix, monitor Hemoccult stool, possibly also component of chronic kidney disease ARUNA on chronic kidney disease: Reassess renal function -Likely cardiorenal syndrome from CHF as above -We will monitor urine output -Patient did get a CT angiogram through ER, will have to monitor kidney function monitor for contrast-induced nephropathy Type 2 diabetes mellitus, low-dose sliding scale Transaminitis, with hyperbilirubinemia: Follow-up liver parameters -Could be congestive hepatopathy from heart failure. Ultrasound with cholel ithiasis with severe gallbladder wall thickening. Thickening nonspecific and may be due to cholecystitis, third spacing of fluid or additional liver disease. Negative Sparks sign. On assessment persistently no abdominal pain. Abdomen soft and benign to examination. In case symptoms arise consider assessment with HIDA scan. Will need additional follow-up with improvement of CHF. Rash, right upper quadrant: reports petechial rash with thrombocytopenia for which she follows with hematology. Goals of care discussion, patient wants to be a full code Attestations Medical Necessity Statement*: Continue admission for assessment and management of decompensated CHF pending further cardiac evaluation with noted worsening ejection fraction. Coding Level of Care Code Acute Code for [facility] Diagnoses CHF exacerbation I50.9 Congestive heart failure I50.9 Elective replacement indicated for cardiac pacemaker battery at end of lifespan Z45.010 Systolic congestive heart failure with reduced left ventricular function, NYHA class 4 I50.20 Nonrheumatic aortic (valve) stenosis I35.0 Transaminitis R74.01 Obesity E66.9 Goals of care, counseling/discussion Z71.89 Anemia D64.9 GERD without esophagitis K21.9 Ischemic cardiomyopathy I25.5 Chronic kidney disease N18.9 HTN (hypertension) I10 Hypertension type: essential hypertension Type 2 diabetes mellitus E11.9 Acute respiratory failure with hypoxia J96.01 Ascending aortic aneurysm I71.21
--- NOTE | 2022-09-19 14:35 | PM.PN ---
Subjective Subjective: Patient is diuresing well. He is feeling much better. His BUN has increased Vitals/I&O/Wt Last Vital Signs Temp 97.5 F L 09/19/22 07:27 Pulse 70 09/19/22 12:06 Resp 16 09/19/22 12:06 BP 91/63 09/19/22 12:06 Pulse Ox 94 09/19/22 12:06 O2 Del Method 09/19/22 07:27 O2 Flow Rate 4 09/18/22 20:00 FiO2 35 09/19/22 00:15 09/18/22 09/19/22 09/19/22 22:59 06:59 14:59 Intake Total 50 / 650 200 / 850 480 / 480 Output Total 1325 / 2425 950 / 3375 575 / 575 Balance -1275 / -1775 -750 / -2525 -95 / -95 Physical Exam Narrative: GENERAL: Patient is alert, awake and oriented x3. [] NECK: No jugular vein distension. [] HEENT: No cyanosis. No icterus. No pallor. [] HEART: Regular S1 and S2. No murmur, rub or gallop. [] LUNGS: Diminished breath sounds CENTRAL NERVOUS SYSTEM: Grossly nonfocal. [] EXTREMITIES: Lower extremities with 1+ edema bilaterally. Data 09/19/22 03:22 09/19/22 03:22 A&P Assessment and plan (1) Type 2 diabetes mellitus: (2) HTN (hypertension): Qualifiers: Hypertension type: essential hypertension Qualified Code(s): I10 - Essential (primary) hypertension (3) CHF exacerbation: Plan Patient has recent drop in LV systolic function. Will need ischemic work-up to evaluate that. Given renal dysfunction, once he is able to lay down flat, we can proceed with stress test. Volume status is improving. We will downtitrate the dose of lasix. Also his BP meds are held because of hypotension, we will downtitrate the dose of metoprolol to 50mg daily and Enteresto to 24/26mg bid Strict I&O's Low-sodium diet At some point he will need assessment of ascending aortic size with a CT scan Thank you for involving us with care of this patient. We will continue to follow. Please call with questions. Attestations Medical Necessity Statement*: Care expected to cross 2 midnights. Coding Level of Care Code Acute Code for [facility] Diagnoses Type 2 diabetes mellitus E11.9 HTN (hypertension) I10 Hypertension type: essential hypertension CHF exacerbation I50.9
[2022-09-19 16:13] LABS: Glucose Point of Care 140 mg/dL (70-110)
[2022-09-19] MEDS: sacubitril/valsartan 24-26 mg Tablet 1 EACH PO (18:07)
[2022-09-19] MEDS: cefTRIAXone 1,000 MG in sodium chloride 0.9% (plus) 50 ML 100 MG IV (20:35)
[2022-09-19 21:04] LABS: Glucose Point of Care 118 mg/dL (70-110)
[2022-09-20] VITALS (11 sets, daily range): BP systolic 92–108; BP diastolic 54–75; PULSE 69–71; RESP 15–26; TEMP 36.4–36.6; O2SAT 93–98
[2022-09-20] MEDS: bumetanide 0.25 mg/mL SDV 4 mL 1 MG IVP ×2 (00:22→12:18)
[2022-09-20 05:24] LABS: Basophils % 0.2 %; Eosinophils # 0.1 10^3/uL (0.0-0.8); Eosinophils % 1.4 %; Hematocrit 27.8 % (42.0-52.0); Hemoglobin 8.2 g/dL (11.7-16.6); Lymphocytes # 1.5 10^3/uL (0.8-4.8); Lymphocytes % 24.2 %; Mean Corpuscular HGB Conc 29.5 g/dL (30.0-36.0); Mean Corpuscular Hemoglobin 32.4 pg (28.0-34.0); Mean Corpuscular Volume 109.9 fl (80-94); Mean Platelet Volume 10.9 fL (7.4-10.4); Monocytes # 0.4 10^3/uL (0.2-0.9); Monocytes % 5.7 %; Neutrophils % 68.2 %; Nucleated Red Blood Cells % 0 %; Platelet Count 135 10^3/cmm (130-400); Red Blood Count 2.53 10^6/uL (4.1-5.3); Red Cell Distribution Width 19.9 % (12.1-15.1); White Blood Count 6.3 10^3/uL (4.0-10.0)
[2022-09-20 05:43] LABS: Alanine Aminotransferase 37 U/L (0-41); Albumin Level 2.6 g/dL (3.5-5.2); Alkaline Phosphatase 39 U/L (40-130); Anion Gap 8.9 (5-19); Aspartate Amino Transferase 43 U/L (0-40); Blood Urea Nitrogen 53 mg/dL (8-23); Calcium 8.2 mg/dL (8.5-10.5); Carbon Dioxide 32 mmol/L (22-29); Chloride 94 mmol/L (98-107); Globulin 5.6 g/dL (1.3-4.6); Glomerular Filtration Rate 31.9 mL/min (90-130); Glucose 98 mg/dL (65-115); Osmolality Calculated 286 mOsm/kg (285-295); Potassium 3.9 mmol/L (3.5-5.1); Sodium 131 mmol/L (136-145); Total Bilirubin 0.8 mg/dL (0.15-1.2); Total Protein 8.2 g/dL (6.6-8.7)
[2022-09-20 06:42] LABS: Glucose Point of Care 97 mg/dL (70-110)
--- NOTE | 2022-09-20 08:53 | P.PN_ITS ---
Subjective Subjective: Patient is overall doing better. Breathing has improved. Renal function is stable. Vitals/I&O/Wt Last Vital Signs Temp 97.8 F 09/20/22 07:04 Pulse 69 09/20/22 07:04 Resp 17 09/20/22 07:04 BP 108/68 09/20/22 07:04 Pulse Ox 95 09/20/22 07:04 O2 Del Method 09/20/22 04:00 O2 Flow Rate 4 09/20/22 04:00 FiO2 35 09/20/22 03:33 09/19/22 09/20/22 09/20/22 22:59 06:59 14:59 Intake Total 320 / 800 Output Total 1600 / 2175 1400 / 3575 Balance -1280 / -1375 -1400 / -2775 Physical Exam Narrative: GENERAL: Patient is alert, awake and oriented x3. [] NECK: No jugular vein distension. [] HEENT: No cyanosis. No icterus. No pallor. [] HEART: Regular S1 and S2. No murmur, rub or gallop. [] LUNGS: Diminished breath sounds CENTRAL NERVOUS SYSTEM: Grossly nonfocal. [] EXTREMITIES: Lower extremities with 1+ edema bilaterally. Data 09/20/22 05:03 09/20/22 05:03 Micro: Microbiology 09/19/22 09:20 Occult Blood (FIT) - Final Stool Routine Collection A&P Assessment and plan (1) Type 2 diabetes mellitus: (2) HTN (hypertension): Qualifiers: Hypertension type: essential hypertension Qualified Code(s): I10 - Essential (primary) hypertension (3) CHF exacerbation: Plan Patient is tolerating diuresis well. Renal function is stable. We will continue IV diuretics for now Plan for stress test on thursday Continue enteresto and metoprolol at current doses Strict I&O's Low-sodium diet At some point he will need assessment of ascending aortic size with a CT scan Thank you for involving us with care of this patient. We will continue to follow. Please call with questions. Attestations Medical Necessity Statement*: Care expected to cross 2 midnights. Coding Level of Care Code Acute Code for [facility] Fwd Diagnoses Type 2 diabetes mellitus E11.9 HTN (hypertension) I10 Hypertension type: essential hypertension CHF exacerbation I50.9
--- NOTE | 2022-09-20 09:24 | PC.SOCIAL ---
Pg 2 IMM Explained to pt Pg 2 IMM. No questions voiced. Provided pt a copy. Initialed, dated, & timed a copy & placed in chart.
[2022-09-20] MEDS: pantoprazole 40 mg SDV IVP ×2 (09:58→21:07)
[2022-09-20] MEDS: metoprolol succinate ER (24 HR) 100 mg Tablet 50 MG PO (09:58)
[2022-09-20] MEDS: pregabalin 50 mg Capsule 100 MG PO ×3 (09:59→21:07)
[2022-09-20] MEDS: allopurinol 300 mg Tablet PO (09:59)
[2022-09-20] MEDS: potassium chloride ER 20 mEq Tablet PO (09:59)
[2022-09-20] MEDS: sacubitril/valsartan 24-26 mg Tablet 1 EACH PO ×2 (09:59→18:15)
[2022-09-20] MEDS: ferrous sulfate EC 325 mg Tablet PO (09:59)
[2022-09-20] MEDS: apixaban 5 mg Tablet PO ×2 (09:59→18:15)
[2022-09-20] MEDS: duloxetine 20 mg Capsule PO ×2 (09:59→18:15)
[2022-09-20] MEDS: atorvastatin 40 mg Tablet 20 MG PO (09:59)
[2022-09-20 11:27] LABS: Glucose Point of Care 172 mg/dL (70-110)
[2022-09-20] MEDS: insulin lispro 100 unit/1 mL SUBCUT (12:18)
[2022-09-20 16:58] LABS: Glucose Point of Care 134 mg/dL (70-110)
--- NOTE | 2022-09-20 20:20 | PM.PN ---
Subjective Subjective: He is continuing to improve. Edema with good improvement. Breathing continues to improve gradually. He denies chest pain. Vitals/I&O/Wt Last Vital Signs Temp 97.6 F 09/20/22 19:37 Pulse 70 09/20/22 19:37 Resp 18 09/20/22 19:37 BP 106/65 09/20/22 19:37 Pulse Ox 98 09/20/22 19:37 O2 Del Method 09/20/22 19:37 O2 Flow Rate 3 09/20/22 19:37 FiO2 35 09/20/22 03:33 09/20/22 09/20/22 09/20/22 06:59 14:59 22:59 Intake Total 720 / 720 Output Total 1400 / 3575 1075 / 1075 Balance -1400 / -2775 -355 / -355 Physical Exam Narrative: Accompanied by his daughter at bedside. Const: COMMON NORMALS: patient oriented x3 and alert GENERAL APPEARANCE: cooperative ORIENTATION/CONSCIOUSNESS: Yes awake HENMT: COMMON NORMALS: oropharynx normal Neck/C-Spine: COMMON NORMALS: no JVD Resp: COMMON NORMALS: normal respiratory effort AUSCULTATION: diminished lung sounds (Improving air entry.) Cardio: COMMON NORMALS: no JVD, regular rhythm, S1 normal heart sound present, S2 normal heart sound present and No murmurs present (Cardio) RHYTHM: regular rhythm HEART SOUNDS: S1 normal heart sound present and S2 normal heart sound present GI: COMMON NORMALS: Normal to inspection, nondistended, normoactive bowel sounds present, Soft to palpation and non-tender PALPATION: Yes Soft to palpation Extremity: COMMON NORMALS: no joint enlargement GENERAL: Yes edema (Trace) Neuro: COMMON NORMALS: patient oriented x3 and moves all extremities SENSORIUM/ORIENTATION: Yes alert Skin: COMMON NORMALS: no rashes or lesions noted GENERAL SKIN EXAM: no rashes or lesions noted Data 09/20/22 05:03 09/20/22 05:03 Micro: Microbiology 09/19/22 09:20 Occult Blood (FIT) - Final Stool Routine Collection A&P Assessment and plan (1) CHF exacerbation: Continue to improve. Oxygenation improving, decreased down to 3 L. Edema significantly improving. Decrease Bumex dose to 1.5 mg continue IV every 12 hours. Reassess to see if may switch to oral diuretics tomorrow. Additional plan for assessment with stress testing on Thursday. Moderately reduced EF on echo, 35-40%, decreased from prior. Moderate global hypokinesis. RV appears hypokinetic. Dilated left atrium. Mild mitral regurgitation. Bioprosthetic aortic valve functioning properly. Mild TVR. Mild pulmonary hypertension. Ascending aorta dilated with diameter of 5 cm. (2) Congestive heart failure: (3) Elective replacement indicated for cardiac pacemaker battery at end of lifespan: (4) Systolic congestive heart failure with reduced left ventricular function, NYHA class 4: (5) Nonrheumatic aortic (valve) stenosis: (6) Transaminitis: (7) Obesity: (8) Goals of care, counseling/discussion: (9) Anemia: (10) GERD without esophagitis: (11) Ischemic cardiomyopathy: (12) Chronic kidney disease: (13) HTN (hypertension): Qualifiers: Hypertension type: essential hypertension Qualified Code(s): I10 - Essential (primary) hypertension (14) Type 2 diabetes mellitus: (15) Acute respiratory failure with hypoxia: (16) Ascending aortic aneurysm: Noted aneurysm 5.[address] Also noted on echo. Unchanged from prior. Will need follow-up. Plan Appears may be having component of bronchitis with Staph aureus. Staff aureus growing in sputum culture. Ceftriaxone. Acute on chronic anemia, following up with Bonilla Lawson, Hemoccult stool negative, borderline low iron saturation. Will need follow-up. Possibly also component of chronic kidney disease ARUNA on chronic kidney disease: With improvement. Follow-up chemistry for reassessment of renal function -Likely cardiorenal syndrome from CHF as above Type 2 diabetes mellitus, low-dose sliding scale Transaminitis, with hyperbilirubinemia: Follow-up liver parameters -Given progressive improvement with improvement in volume status likely congestive hepatopathy from heart failure. Ultrasound with cholelithiasis with severe gallbladder wall thickening. Thickening nonspecific and may be due to cholecystitis, third spacing of fluid or additional liver disease. Negative Sparks sign. On assessment persistently no abdominal pain. Abdomen soft and benign to examination. In case symptoms arise consider assessment with HIDA scan. Will need additional follow-up with improvement of CHF. Rash, right upper quadrant: reports petechial rash with thrombocytopenia for which she follows with hematology. Goals of care discussion, patient wants to be a full code Attestations Medical Necessity Statement*: Continue admission for assessment and management decompensated CHF, pending additional cardiac assessment for underlying ischemic heart disease. Coding Level of Care Code Acute Code for [facility] Fwd Diagnoses CHF exacerbation I50.9 Congestive heart failure I50.9 Elective replacement indicated for cardiac pacemaker battery at end of lifespan Z45.010 Systolic congestive heart failure with reduced left ventricular function, NYHA class 4 I50.20 Nonrheumatic aortic (valve) stenosis I35.0 Transaminitis R74.01 Obesity E66.9 Goals of care, counseling/discussion Z71.89 Anemia D64.9 GERD without esophagitis K21.9 Ischemic cardiomyopathy I25.5 Chronic kidney disease N18.9 HTN (hypertension) I10 Hypertension type: essential hypertension Type 2 diabetes mellitus E11.9 Acute respiratory failure with hypoxia J96.01 Ascending aortic aneurysm I71.21
[2022-09-20 20:28] LABS: Glucose Point of Care 168 mg/dL (70-110)
[2022-09-20] MEDS: cefTRIAXone 1,000 MG in sodium chloride 0.9% (plus) 50 ML 100 MG IV (21:07)
[2022-09-21] VITALS (10 sets, daily range): BP systolic 90–110; BP diastolic 62–80; PULSE 70–74; RESP 15–26; TEMP 36.2–37.3; O2SAT 91–95
[2022-09-21] MEDS: bumetanide 0.25 mg/mL SDV 4 mL 0.5 MG IVP (03:04)
[2022-09-21 04:53] LABS: Basophils % 0.3 %; Eosinophils # 0.1 10^3/uL (0.0-0.8); Eosinophils % 1.6 %; Hemoglobin 8.6 g/dL (11.7-16.6); Lymphocytes # 1.6 10^3/uL (0.8-4.8); Lymphocytes % 25.5 %; Mean Corpuscular HGB Conc 29.7 g/dL (30.0-36.0); Mean Corpuscular Hemoglobin 32.1 pg (28.0-34.0); Mean Corpuscular Volume 108.2 fl (80-94); Mean Platelet Volume 10.4 fL (7.4-10.4); Monocytes # 0.5 10^3/uL (0.2-0.9); Monocytes % 7.5 %; Neutrophils # 3.94 10^3/uL (1.8-7.7); Neutrophils % 64.6 %; Nucleated Red Blood Cells % 0 %; Platelet Count 135 10^3/cmm (130-400); Red Blood Count 2.68 10^6/uL (4.1-5.3); Red Cell Distribution Width 19.8 % (12.1-15.1); White Blood Count 6.1 10^3/uL (4.0-10.0)
[2022-09-21 05:15] LABS: Alanine Aminotransferase 30 U/L (0-41); Albumin Level 2.6 g/dL (3.5-5.2); Alkaline Phosphatase 41 U/L (40-130); Anion Gap 7.4 (5-19); Aspartate Amino Transferase 36 U/L (0-40); Blood Urea Nitrogen 52 mg/dL (8-23); Calcium 8.9 mg/dL (8.5-10.5); Carbon Dioxide 35 mmol/L (22-29); Chloride 96 mmol/L (98-107); Globulin 5.9 g/dL (1.3-4.6); Glomerular Filtration Rate 31.9 mL/min (90-130); Glucose 90 mg/dL (65-115); Osmolality Calculated 292 mOsm/kg (285-295); Potassium 4.4 mmol/L (3.5-5.1); Sodium 134 mmol/L (136-145); Total Bilirubin 0.7 mg/dL (0.15-1.2); Total Protein 8.5 g/dL (6.6-8.7)
[2022-09-21 06:33] LABS: Glucose Point of Care 93 mg/dL (70-110)
--- NOTE | 2022-09-21 07:33 | P.PN_ITS ---
Subjective Subjective: Patient is stable. No complaints of chest pain. Diuresing well. Renal function is stable. Vitals/I&O/Wt Last Vital Signs Temp 98.6 F 09/21/22 04:00 Pulse 73 09/21/22 04:14 Resp 17 09/21/22 04:00 BP 101/73 09/21/22 04:00 Pulse Ox 91 09/21/22 04:00 O2 Del Method 09/21/22 04:00 O2 Flow Rate 3 09/20/22 19:37 FiO2 35 09/21/22 04:00 09/20/22 09/21/22 09/21/22 22:59 06:59 14:59 Intake Total 50 / 770 300 / 1070 Output Total 700 / 1775 1175 / 2950 Balance -650 / -1005 -875 / -1880 Weight last 48 hrs Weight 228 lb 3.2 oz Physical Exam Narrative: GENERAL: Patient is alert, awake and oriented x3. [] NECK: No jugular vein distension. [] HEENT: No cyanosis. No icterus. No pallor. [] HEART: Regular S1 and S2. No murmur, rub or gallop. [] LUNGS: Diminished breath sounds CENTRAL NERVOUS SYSTEM: Grossly nonfocal. [] EXTREMITIES: Lower extremities with 1+ edema bilaterally. Data 09/21/22 04:33 09/21/22 04:33 A&P Assessment and plan (1) Type 2 diabetes mellitus: (2) HTN (hypertension): Qualifiers: Hypertension type: essential hypertension Qualified Code(s): I10 - Essential (primary) hypertension (3) CHF exacerbation: Plan Continue IV lasix Plan for stress test tomorrow. Continue enteresto and metoprolol at current doses Strict I&O's Low-sodium diet At some point he will need assessment of ascending aortic size with a CT scan Thank you for involving us with care of this patient. We will continue to follow. Please call with questions. Attestations Medical Necessity Statement*: Care expected to cross 2 midnights. Coding Level of Care Code Acute Code for [facility] Fwd Diagnoses Type 2 diabetes mellitus E11.9 HTN (hypertension) I10 Hypertension type: essential hypertension CHF exacerbation I50.9
[2022-09-21] MEDS: apixaban 5 mg Tablet PO ×2 (09:12→17:58)
[2022-09-21] MEDS: allopurinol 300 mg Tablet PO (09:12)
[2022-09-21] MEDS: duloxetine 20 mg Capsule PO ×2 (09:12→17:58)
[2022-09-21] MEDS: atorvastatin 40 mg Tablet 20 MG PO (09:14)
[2022-09-21] MEDS: potassium chloride ER 20 mEq Tablet PO (09:15)
[2022-09-21] MEDS: ferrous sulfate EC 325 mg Tablet PO (09:15)
[2022-09-21] MEDS: pantoprazole 40 mg SDV IVP ×2 (09:17→20:10)
[2022-09-21 11:42] LABS: Glucose Point of Care 138 mg/dL (70-110)
[2022-09-21 17:15] LABS: Glucose Point of Care 122 mg/dL (70-110)
--- NOTE | 2022-09-21 18:40 | PM.PN ---
Subjective Subjective: Reports he is doing well today. Edema today has entirely resolved. He is now down to his baseline oxygen level on 3 L nasal cannula. Denies chest pain or pressure. Vitals/I&O/Wt Last Vital Signs Temp 97.6 F 09/21/22 15:25 Pulse 70 09/21/22 15:25 Resp 15 09/21/22 15:25 BP 103/73 09/21/22 15:25 Pulse Ox 92 09/21/22 15:25 O2 Del Method 09/21/22 15:25 O2 Flow Rate 3 09/20/22 19:37 FiO2 35 09/21/22 08:00 09/21/22 09/21/22 09/21/22 06:59 14:59 22:59 Intake Total 300 / 1070 300 / 300 480 / 780 Output Total 1175 / 2950 200 / 200 Balance -875 / -1880 100 / 100 480 / 580 Weight last 48 hrs Weight 103.51 kg Physical Exam Narrative: Accompanied by his daughter at bedside. Const: COMMON NORMALS: patient oriented x3 and alert GENERAL APPEARANCE: cooperative ORIENTATION/CONSCIOUSNESS: Yes awake HENMT: COMMON NORMALS: oropharynx normal Neck/C-Spine: COMMON NORMALS: no JVD Resp: COMMON NORMALS: normal respiratory effort AUSCULTATION: diminished lung sounds (Improving air entry.) and other (No adventitious sounds.) Cardio: COMMON NORMALS: no JVD, regular rhythm, S1 normal heart sound present, S2 normal heart sound present and No murmurs present (Cardio) RHYTHM: regular rhythm HEART SOUNDS: S1 normal heart sound present and S2 normal heart sound present GI: COMMON NORMALS: Normal to inspection, nondistended, normoactive bowel sounds present, Soft to palpation and non-tender PALPATION: Yes Soft to palpation Extremity: COMMON NORMALS: no joint enlargement and no pedal edema Neuro: COMMON NORMALS: patient oriented x3 and moves all extremities SENSORIUM/ORIENTATION: Yes alert Skin: COMMON NORMALS: no rashes or lesions noted GENERAL SKIN EXAM: no rashes or lesions noted Data 09/21/22 04:33 09/21/22 04:33 A&P Assessment and plan (1) CHF exacerbation: Today appears to now be compensated. Transition to oral diuretic. Assessment by stress testing in the morning. Moderately reduced EF on echo, 35-40%, decreased from prior. Moderate global hypokinesis. RV appears hypokinetic. Dilated left atrium. Mild mitral regurgitation. Bioprosthetic aortic valve functioning properly. Mild TVR. Mild pulmonary hypertension. Ascending aorta dilated with diameter of 5 cm. (2) Congestive heart failure: (3) Elective replacement indicated for cardiac pacemaker battery at end of lifespan: (4) Systolic congestive heart failure with reduced left ventricular function, NYHA class 4: (5) Nonrheumatic aortic (valve) stenosis: (6) Transaminitis: (7) Obesity: (8) Goals of care, counseling/discussion: (9) Anemia: (10) GERD without esophagitis: (11) Ischemic cardiomyopathy: (12) Chronic kidney disease: (13) HTN (hypertension): Qualifiers: Hypertension type: essential hypertension Qualified Code(s): I10 - Essential (primary) hypertension (14) Type 2 diabetes mellitus: (15) Acute respiratory failure with hypoxia: (16) Ascending aortic aneurysm: Noted aneurysm 5.[address] Also noted on echo. Unchanged from prior. Will need follow-up. Plan Appears may be having component of bronchitis with Staph aureus. Staff aureus growing in sputum culture. Ceftriaxone. Acute on chronic anemia, following up with Dr. Payne, Bonilla, Hemoccult stool negative, borderline low iron saturation. Will need follow-up. Possibly also component of chronic kidney disease ARUNA on chronic kidney disease: With improvement. Follow-up chemistry for reassessment of renal function -Likely cardiorenal syndrome from CHF as above Type 2 diabetes mellitus, low-dose sliding scale Transaminitis, with hyperbilirubinemia: Resolved. Suspect were secondary to CHF. Will need follow-up gallbladder imaging. Follow-up liver parameters -Given progressive improvement with improvement in volume status likely congestive hepatopathy from heart failure. Ultrasound with cholelithiasis with severe gallbladder wall thickening. Thickening nonspecific and may be due to cholecystitis, third spacing of fluid or additional liver disease. Negative Sparks sign. On assessment persistently no abdominal pain. Abdomen soft and benign to examination. In case symptoms arise consider assessment with HIDA scan. Will need additional follow-up with improvement of CHF. Rash, right upper quadrant: reports petechial rash with thrombocytopenia for which she follows with hematology. Infusion was to be rescheduled for Thursday. Goals of care discussion, patient wants to be a full code Attestations Medical Necessity Statement*: Continue admission for further assessment for underlying coronary disease with decompensated congestive heart failure and new decrease in ejection fraction. Coding Level of Care Code Acute Code for [facility] Fwd Diagnoses CHF exacerbation I50.9 Congestive heart failure I50.9 Elective replacement indicated for cardiac pacemaker battery at end of lifespan Z45.010 Systolic congestive heart failure with reduced left ventricular function, NYHA class 4 I50.20 Nonrheumatic aortic (valve) stenosis I35.0 Transaminitis R74.01 Obesity E66.9 Goals of care, counseling/discussion Z71.89 Anemia D64.9 GERD without esophagitis K21.9 Ischemic cardiomyopathy I25.5 Chronic kidney disease N18.9 HTN (hypertension) I10 Hypertension type: essential hypertension Type 2 diabetes mellitus E11.9 Acute respiratory failure with hypoxia J96.01 Ascending aortic aneurysm I71.21
[2022-09-21 20:56] LABS: Glucose Point of Care 183 mg/dL (70-110)
[2022-09-21] MEDS: cefTRIAXone 1,000 MG in sodium chloride 0.9% (plus) 50 ML 100 MG IV (21:28)
[2022-09-22 04:00] VITALS: BP 99/67; PULSE 71; RESP 20; TEMP 36.7; O2SAT 95
[2022-09-22 05:25] VITALS: PULSE 70
[2022-09-22 06:27] LABS: Glucose Point of Care 99 mg/dL (70-110)
[2022-09-22 06:44] LABS: Basophils % 0.6 %; Eosinophils # 0.1 10^3/uL (0.0-0.8); Eosinophils % 1.4 %; Hematocrit 30.4 % (42.0-52.0); Lymphocytes # 2.1 10^3/uL (0.8-4.8); Lymphocytes % 31.6 %; Mean Corpuscular HGB Conc 29.6 g/dL (30.0-36.0); Mean Corpuscular Hemoglobin 31.8 pg (28.0-34.0); Mean Corpuscular Volume 107.4 fl (80-94); Mean Platelet Volume 10.6 fL (7.4-10.4); Monocytes # 0.4 10^3/uL (0.2-0.9); Monocytes % 6.6 %; Neutrophils # 3.85 10^3/uL (1.8-7.7); Neutrophils % 59.5 %; Nucleated Red Blood Cells % 0 %; Platelet Count 151 10^3/cmm (130-400); Red Blood Count 2.83 10^6/uL (4.1-5.3); Red Cell Distribution Width 19.3 % (12.1-15.1); White Blood Count 6.5 10^3/uL (4.0-10.0)
[2022-09-22 06:50] VITALS: BP 107/74; PULSE 86; RESP 16; TEMP 37.2; O2SAT 93
[2022-09-22 06:59] LABS: Alanine Aminotransferase 28 U/L (0-41); Alkaline Phosphatase 40 U/L (40-130); Anion Gap 9.3 (5-19); Aspartate Amino Transferase 36 U/L (0-40); Blood Urea Nitrogen 41 mg/dL (8-23); Calcium 8.7 mg/dL (8.5-10.5); Carbon Dioxide 33 mmol/L (22-29); Chloride 94 mmol/L (98-107); Globulin 5.6 g/dL (1.3-4.6); Glomerular Filtration Rate 40.7 mL/min (90-130); Glucose 91 mg/dL (65-115); Osmolality Calculated 284 mOsm/kg (285-295); Potassium 4.3 mmol/L (3.5-5.1); Sodium 132 mmol/L (136-145); Total Bilirubin 0.6 mg/dL (0.15-1.2); Total Protein 8.6 g/dL (6.6-8.7)
--- NOTE | 2022-09-22 07:00 | ECG_ITS ---
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 Interpretive Statements NAME OF STUDY: LEXISCAN SESTAMIBI STRESS TEST INDICATION: Cardiomyopathy PROCEDURE: At the baseline, the blood pressure was 127/69 mm Hg with a heart rate of 70 bpm. The electrocardiogram showed V paced rhythm. ??? The Lexiscan was infused over a period of 20 seconds. A total of 0.4 milligrams of Lexiscan was infused. The stress phase was continued for a total of 5 minutes. Heart rate at the end of the stress phase was 70 bpm with a blood pressure of 112/74 mm Hg. The EKG at the peak infusion revealed no ST-T wave changes. ??? Sestamibi was injected 20 seconds after the Lexiscan infusion. ??? Blood pressure at the end of the recovery phase was 112/75 mm Hg with a heart rate of 70 beats per minute. ??? CONCLUSION: 1. Non diagnostic EKG changes with the LexiScan infusion due to baseline paced rhythm. 2. No LexiScan induced chest pain or cardiac arrhythmia. 3. Normal blood pressure and heart rate response. 4. Sestamibi/sestamibi perfusion scan pending; see separate report. Electronically Signed On 10-01-2022 2:39:05 [employer] by Ally Beverly M.D. [email or web address]
[2022-09-22] MEDS: regadenoson 0.4 Mg/5 ml Syringe IVP (07:58)
[2022-09-22 08:24] VITALS: BP 112/75; PULSE 70
--- NOTE | 2022-09-22 08:38 | PM.PN ---
Subjective Subjective: Small area of ischemia noted in the LCx territory. Patient has diuresed well. Vitals/I&O/Wt Last Vital Signs Temp 99.0 F 09/22/22 06:50 Pulse 70 09/22/22 08:24 Resp 16 09/22/22 06:50 BP 112/75 09/22/22 08:24 Pulse Ox 93 09/22/22 06:50 O2 Del Method 09/22/22 04:00 O2 Flow Rate 3 09/22/22 04:00 FiO2 35 09/21/22 20:00 09/21/22 09/22/22 09/22/22 22:59 06:59 14:59 Intake Total 530 / 830 Output Total 200 / 400 1050 / 1450 Balance 330 / 430 -1050 / -620 Weight last 48 hrs Weight 226 lb 12.8 oz Weight 228 lb 3.2 oz Physical Exam Narrative: GENERAL: Patient is alert, awake and oriented x3. [] NECK: No jugular vein distension. [] HEENT: No cyanosis. No icterus. No pallor. [] HEART: Regular S1 and S2. No murmur, rub or gallop. [] LUNGS: Diminished breath sounds CENTRAL NERVOUS SYSTEM: Grossly nonfocal. [] EXTREMITIES: Lower extremities with 1+ edema bilaterally. Data 09/22/22 06:03 09/22/22 06:03 A&P Assessment and plan (1) Type 2 diabetes mellitus: (2) HTN (hypertension): Qualifiers: Hypertension type: essential hypertension Qualified Code(s): I10 - Essential (primary) hypertension (3) CHF exacerbation: Plan Can switch to p.o. Lasix. Stress test showing small sized mild reversible perfusion defect in left circumflex artery territory. Medical therapy. Continue enteresto and metoprolol at current doses Low-sodium diet At some point he will need assessment of ascending aortic size with a CT scan Thank you for involving us with care of this patient. Patient is stable to be discharged from cardiology standpoint. Please call with questions. Attestations Medical Necessity Statement*: Care expected to cross 2 midnights. Coding Level of Care Code Acute Code for [facility] Diagnoses Type 2 diabetes mellitus E11.9 HTN (hypertension) I10 Hypertension type: essential hypertension CHF exacerbation I50.9
[2022-09-22 10:15] LABS: Lactate Dehydrogenase 377 U/L (135-225)
[2022-09-22] MEDS: bumetanide 1 mg Tablet 0.5 MG PO (10:48)
[2022-09-22] MEDS: apixaban 5 mg Tablet PO (10:48)
[2022-09-22] MEDS: atorvastatin 40 mg Tablet 20 MG PO (10:49)
[2022-09-22] MEDS: potassium chloride ER 20 mEq Tablet PO (10:49)
[2022-09-22] MEDS: ferrous sulfate EC 325 mg Tablet PO (10:49)
[2022-09-22] MEDS: duloxetine 20 mg Capsule PO (10:49)
[2022-09-22] MEDS: allopurinol 300 mg Tablet PO (10:49)
[2022-09-22] MEDS: metoprolol succinate ER (24 HR) 25 mg Tablet 12.5 MG PO (10:50)
[2022-09-22] MEDS: pantoprazole 40 mg SDV IVP (10:50)
[2022-09-22 11:15] VITALS: BP 109/66; PULSE 70; RESP 16; TEMP 36.5; O2SAT 97
[2022-09-22 11:34] LABS: Glucose Point of Care 192 mg/dL (70-110)
[2022-09-22] MEDS: insulin lispro 100 unit/1 mL SUBCUT (12:04)
--- NOTE | 2022-09-22 12:14 | PC.SOCIAL ---
IMM update IMM updated with at bedside. Verbalized an understanding. Copy Pg 2 provided. Initialled, dated, timed, and placed in chart.
[2022-09-22 13:58] VITALS: BP 109/66; PULSE 70; RESP 16; TEMP 36.5; O2SAT 97
--- NOTE | 2022-09-22 14:06 | P.DS_ITS ---
Discharge Providers Date of Admission: 09/17/22 06:47 Date of Discharge: September 22, 2022 Attending Provider at Admission: Josias Matthews MD Attending Provider at Discharge: Josias Matthews MD Primary Care Provider: Diana Butcher MD Diagnoses at Discharge Discharge Diagnosis (1) CHF exacerbation: Status: Resolved (2) Congestive heart failure: Status: Acute (3) Elective replacement indicated for cardiac pacemaker battery at end of lifespan: Status: Acute (4) Systolic congestive heart failure with reduced left ventricular function, NYHA class 4: Status: Acute (5) Nonrheumatic aortic (valve) stenosis: Status: Acute (6) Transaminitis: Status: Resolved (7) Obesity: Status: Acute (8) Goals of care, counseling/discussion: Status: Acute (9) Anemia: Status: Acute (10) GERD without esophagitis: Status: Acute (11) Ischemic cardiomyopathy: Status: Acute (12) Chronic kidney disease: Status: Acute (13) HTN (hypertension): Status: Acute Qualifiers: Hypertension type: essential hypertension Qualified Code(s): I10 - Essential (primary) hypertension (14) Type 2 diabetes mellitus: Status: Acute (15) Acute respiratory failure with hypoxia: Status: Resolved (16) Ascending aortic aneurysm: Status: Acute Reason for Visit Reason for Visit: Low O2, 82 Hospital Course Hospital Course Pawan Marcum is a 67 year old male with a past medical history of CAD, status post CABG, history of atrial fibrillation on Eliquis, history of systolic and diastolic CHF, obesity, hypertension, hyperlipidemia, fpu-rykzbih-salznsynu type 2 diabetes mellitus, currently going under investigation for anemia, microcytic, chronic kidney disease who presents to [facility] due to increased shortness of breath, bilateral extremity edema.? Patient tells me that since getting out of the hospital, he has had some progressive shortness of breath, but today he noticed significant worsening of his shortness of breath, with increased oxygen requirements, he normally uses 3 L a but they had to bump him up to 5 L, but he is oxygen saturations remained in the low 80s, denies any chest pain, palpitations, no cough, fevers, no chills.? Does have bilateral extremity edema, does have orthopnea paroxysmal nocturnal dyspnea. Patient was admitted to [facility] for CHF exacerbation, echocardiogram showed an EF of 35 to 40%, received diuretic therapy, overall clinically improved, discharged on Lasix 40 mg once daily, with potassium replacement. In addition his Entresto dose was adjusted to 24-26 twice daily Patient was found to have a staph bronchitis, discharged on antibiotic therapy Found to have acute on chronic anemia, follow-up with Dr. 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 Pineda for monitoring as outpatient Patient underwent stress testing during his hospitalization, ?1. Small sized reversible perfusion abnormality of mild severity of basal to ?mid inferolateral macias. ?2. This may represent small area of ischemia in circumflex artery territory. ?3. The left ventricular ejection fraction is mildly reduced with a value of ?49%.There is mild global hypokinesis. ?4. EKG portion of the study will be reported separately. -Discussed with cardiology, continue Eliquis, statin, with a close follow-up with cardiology as outpatient, if any recurrent chest pain go to emergency room Physical Exam Const: COMMON NORMALS: no acute distress and patient oriented x3 Resp: COMMON NORMALS: normal respiratory effort, No retractions, No use of accessory muscles and clear to auscultation bilaterally AUSCULTATION: clear to auscultation bilaterally Cardio: COMMON NORMALS: regular rate, regular rhythm, S1 normal heart sound present and S2 normal heart sound present RATE: regular rate RHYTHM: regular rhythm HEART SOUNDS: S1 normal heart sound present and S2 normal heart sound present GI: COMMON NORMALS: Normal to inspection, nondistended, normoactive bowel sounds present and non-tender Extremity: COMMON NORMALS: no pedal edema Neuro: COMMON NORMALS: patient oriented x3 Psych: COMMON NORMALS: mental status grossly normal Discharge Data Studies Completed and Pending Completed Studies During Hospitalization Category Date Time Status CT angio chest PE protcl [id number] Stat Cat Scan 09/16/22 22:20 Completed Cardiac Stress Test MIBI [Sestamibi Stress Test Request Exams 09/22/22 07:00 Draft ] Routine XR chest 1V portable [id number] Stat Exams 09/16/22 21:10 Completed CV. echo complete* [id number] Routine Ultrasound 09/17/22 06:47 Completed US abdomen limited [id number] Stat Ultrasound 09/17/22 00:29 Completed Pending at discharge Category Date Time Status Complete Blood Count w/Auto AM LABS Lab 09/23/22 04:00 Ordered Comprehensive Metabolic Panel AM LABS Lab 09/23/22 04:00 Ordered Miscellaneous Test Routine Lab 09/18/22 07:54 Received NM adrianna perf SPECT r/s* [id number] Routine Nuc Med 09/22/22 14:22 Taken Radiology Impressions Chest X-Ray 09/16/22 21:10 IMPRESSION: 1. Cardiomegaly and mild pulmonary vascular congestion. 2. Patchy right lung field ground-glass airspace opacity reflecting alveolar edema and/or pneumonic infiltrate. Chest CTA 09/16/22 22:20 IMPRESSION: 1. Negative for pulmonary embolus. 2. Cardiomegaly. 3. 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 4. Cholelithiasis. 5. Patchy bilateral airspace infiltrates. 6. Scattered prominent mediastinal lymph nodes measuring up to 13 mm, nonspecific. 7. Trace right pleural effusion. Abdomen Ultrasound 09/17/22 00:29 IMPRESSION: 1. Cholelithiasis with severe gallbladder wall thickening. This wall thickening is nonspecific and may be due to cholecystitis, 3rd spacing of fluid, or adjacent liver disease. Negative Sparks's sign. Advise correlation. Consider need for HIDA scan. 2. Upper limits of normal CBD. 3. Other findings above. Laboratory Results WBC 6.5 10^3/uL (4.0-10.0) 09/22/22 06:03 RBC 2.83 10^6/uL (4.1-5.3) L 09/22/22 06:03 Hgb 9.0 g/dL (11.7-16.6) L 09/22/22 06:03 Hct 30.4 % (42.0-52.0) L 09/22/22 06:03 MCV 107.4 fl (80-94) H 09/22/22 06:03 MCH 31.8 pg (28.0-34.0) 09/22/22 06:03 MCHC 29.6 g/dL (30.0-36.0) L 09/22/22 06:03 RDW 19.3 % (12.1-15.1) H 09/22/22 06:03 Plt Count 151 10^3/cmm (130-400) 09/22/22 06:03 MPV 10.6 fL (7.4-10.4) H 09/22/22 06:03 Neut % (Auto) 59.5 % 09/22/22 06:03 Lymph % (Auto) 31.6 % 09/22/22 06:03 [place] % (Auto) 6.6 % 09/22/22 06:03 Eos % (Auto) 1.4 % 09/22/22 06:03 Baso % (Auto) 0.6 % 09/22/22 06:03 Neut # (Auto) 3.85 10^3/uL (1.8-7.7) 09/22/22 06:03 Lymph # (Auto) 2.1 10^3/uL (0.8-4.8) 09/22/22 06:03 [place] # (Auto) 0.4 10^3/uL (0.2-0.9) 09/22/22 06:03 Eos # (Auto) 0.1 10^3/uL (0.0-0.8) 09/22/22 06:03 Baso # (Auto) 0.0 10^3/uL (0.0-0.1) 09/22/22 06:03 Nucleated RBC % (auto) 0 % 09/22/22 06:03 Nucleated RBCs # 0.0 /100WBC 09/22/22 06:03 Haptoglobin 10.0 mg/L (30-200) L 09/22/22 06:03 D-Dimer 3.63 ug/mIFEU (0-0.59) H 09/16/22 21:09 Specimen Type Arterial 09/16/22 21:41 Sample Site Radial, left 09/16/22 21:41 ABG pH 7.42 (7.35-7.45) 09/16/22 21:41 ABG pCO2 39.4 mmHg (35-45) 09/16/22 21:41 ABG pO2 135.0 mmHg (80.0-100.0) H 09/16/22 21:41 ABG HCO3 25.6 mmol/L (22-26) 09/16/22 21:41 ABG Base Excess 1.0 mmol/L (-2.0-2.0) 09/16/22 21:41 Anthony Test Pos 09/16/22 21:41 Hematocrit 24.7 % (42-52) L 09/16/22 21:41 Hgb O2 Saturation 96.6 % (95-100) 09/16/22 21:41 Carboxyhemoglobin 3.0 %THgb (0.4-20.1) 09/16/22 21:41 Methemoglobin 0.9 % (0.4-1.5) 09/16/22 21:41 Total Hemoglobin 8.1 g/dL (14-18) L 09/16/22 21:41 O2 Delivery Device Nrb 09/16/22 21:41 O2 Liters/Min 12.0 % 09/16/22 21:41 FiO2 100.0 % 09/16/22 21:41 Radio Recorder ID Alewe 09/16/22 21:41 Sodium 132 mmol/L (136-145) L 09/22/22 06:03 Potassium 4.3 mmol/L (3.5-5.1) 09/22/22 06:03 Chloride 94 mmol/L (98-107) L 09/22/22 06:03 Carbon Dioxide 33 mmol/L (22-29) H 09/22/22 06:03 Anion Gap 9.3 (5-19) 09/22/22 06:03 BUN 41 mg/dL (8-23) H 09/22/22 06:03 Creatinine 1.7 mg/dL (0.7-1.2) H 09/22/22 06:03 GFR Calculation 40.7 mL/min (90-130) L 09/22/22 06:03 Glucose 91 mg/dL (65-115) 09/22/22 06:03 POC Glucose 192 mg/dL (70-110) H 09/22/22 11:23 Estimat Average Glucose 126 09/17/22 03:40 Hemoglobin A1c 6.0 % (4.0-6.0) 09/17/22 03:40 Calculated Osmolality 284 mOsm/kg (285-295) L 09/22/22 06:03 Calcium 8.7 mg/dL (8.5-10.5) 09/22/22 06:03 Magnesium 1.9 mg/dL (1.7-2.3) 09/17/22 03:40 Iron 95 ug/dL (59-158) 09/17/22 03:40 Ferritin 990 ng/mL (30-400) H 09/17/22 03:40 Total Bilirubin 0.6 mg/dL (0.15-1.2) 09/22/22 06:03 AST 36 U/L (0-40) 09/22/22 06:03 ALT 28 U/L (0-41) 09/22/22 06:03 Alkaline Phosphatase 40 U/L (40-130) 09/22/22 06:03 Lactate Dehydrogenase 377 U/L (135-225) H 09/22/22 06:03 Troponin T Baseline 41 ng/L (0-15) H 09/16/22 21:09 Troponin T 120 Minute 40.71 ng/L (0-15) H 09/16/22 22:53 Delta Troponin T -0.29 ABS# (0-10) L 09/16/22 22:53 Troponin T Hi Sens 6Hr 39.40 ng/L (0-15) H 09/17/22 03:40 Troponin T Hi Sens 6Hr Delta -1.60 ng/L (0-12) L 09/17/22 03:40 C-Reactive Protein 36.7 mg/L (0.0-4.9) H 09/17/22 03:40 NT-Pro-B Natriuret Pep 43530 pg/mL (0-125) H 09/16/22 21:09 Total Protein 8.6 g/dL (6.6-8.7) 09/22/22 06:03 Albumin 3.0 g/dL (3.5-5.2) L 09/22/22 06:03 Globulin 5.6 g/dL (1.3-4.6) H 09/22/22 06:03 Triglycerides 109 mg/dL (0-150) 09/17/22 03:40 Cholesterol 78 mg/dL (0-200) 09/17/22 03:40 LDL Cholesterol, Calc 43 mg/dL (50-129) L 09/17/22 03:40 HDL Cholesterol 13 mg/dL (60-100) L 09/17/22 03:40 LDL/HDL Ratio 3.31 RATIO (0.00-3.22) H 09/17/22 03:40 Cholesterol/HDL Ratio 6.00 mg/dL (1.0-5.00) H 09/17/22 03:40 Procalcitonin 0.59 ng/mL (0-0.5) H 09/17/22 03:40 TSH 1.75 uIU/mL (0.27-4.20) 09/17/22 03:40 Vitals Last Vital Signs Temp 97.7 F 09/22/22 13:58 Pulse 70 09/22/22 13:58 Resp 16 09/22/22 13:58 BP 109/66 09/22/22 13:58 Pulse Ox 97 09/22/22 13:58 O2 Del Method 09/22/22 04:00 O2 Flow Rate 3 09/22/22 04:00 FiO2 35 09/22/22 08:00 Discharge Plan Discharge Patient Disposition: Home Condition: Stable Prescriptions: New Eliquis 5 mg Tablet 5 mg PO BID 30 Days Qty: 60 0RF atorvastatin 40 mg Tablet 20 mg PO DAILY 30 Days Qty: 30 0RF nitroglycerin 0.4 mg Tablet, Sublingual 0.4 mg sublingual Q5M PRN (Reason: Chest Pain) 30 Days Qty: 30 0RF allopurinol 300 mg Tablet 300 mg PO DAILY 30 Days Qty: 30 0RF metoprolol succinate 25 mg Tablet Extended Release 24 Hr 12.5 mg PO DAILY 30 Days Qty: 30 0RF duloxetine 20 mg Capsule,Delayed Release(Dr/Ec) 20 mg PO BID 30 Days Qty: 60 0RF cefdinir 300 mg capsule 300 mg PO BID 5 Days Qty: 10 0RF Entresto 24-26 mg tablet 1 tab PO BID 30 Days Qty: 60 0RF Continued (DME) diabetic shoes with inserts See Rx Instructions .Route .MEDSUPPLY Qty: 1 0RF Rx Instructions: As directed (DME) Diabetic shoes with inserts See Rx Instructions .Route .MEDSUPPLY Qty: 1 0RF Rx Instructions: As directed (DME) o2 at 3L per nasal cannula See Rx Instructions .Route .MEDSUPPLY Qty: 1 0RF Rx Instructions: Room air O2 sats were 83. After 3L O2 went up to 90's however when walking still at 89 on 3 L O2. (DME) Blood pressure cuff and machine See Rx Instructions .Route .MEDSUPPLY Qty: 1 0RF Rx Instructions: As directed potassium chloride 20 mEq tablet,ER particles/crystals 20 meq PO BID furosemide 20 mg tablet 40 mg PO DAILY fenofibrate 160 mg tablet 160 mg PO DAILY Trulicity 0.75 mg/0.5 mL pen injector 0.75 mg SUBCUT Q7D Rx Instructions: ON THURSDAY ondansetron HCl 8 mg tablet 8 mg PO Q8H PRN (Reason: Nausea And Vomiting) metformin 850 mg tablet 850 mg PO DAILY pregabalin 100 mg capsule 100 mg PO TID famotidine 40 mg tablet 40 mg PO BID ferrous sulfate [Feosol] 325 mg (65 mg iron) tablet 325 mg PO DAILY Qty: 30 0RF Changed tadalafil 20 mg tablet 20 mg PO DAILY MDD 20mg PRN (Reason: sexual activity) Qty: 30 0RF Rx Instructions: use 30 minutes before sexual activity, do not use with nitroglycerin Discontinued metolazone 2.5 mg tablet 2.5 mg PO DAILY acetaminophen-codeine 300-60 mg tablet 1 tab PO Q8H PRN (Reason: Pain) Qty: 90 0RF atorvastatin 20 mg tablet 20 mg PO DAILY amlodipine 5 mg tablet 5 mg PO DAILY allopurinol 300 mg tablet 300 mg PO DAILY duloxetine 20 mg capsule,delayed release(DR/EC) 20 mg PO BID Eliquis 5 mg tablet 5 mg PO BID Entresto 49-51 mg tablet 1 tab PO BID metoprolol succinate 100 mg tablet extended release 24 hr 100 mg PO DAILY Discharge Orders: Discharge Order (Routine); Ordered 09/22/22 Ordered By: Josias Matthews Referrals: Hayes Peck MD [Physician] - 10/08/22 10:45 am ([facility] [place] has scheduled an appointment for you with Dr. Aceves on 10/08/2022 at 10:45. If you have any questions, please call [phone].) Filippo Pineda MD [Physician] - 10/23/22 3:00 pm ([facility] [place] has sheduled an appointment for you with Dr. Pineda on 10/23/2022 at 11:15. If you have any questions, please call [phone]. ) Diana Butcher MD [Primary Care Provider] - 09/24/22 3:00 pm ([facility] has scheduled an appointment for you with Dr. Butcher on 09/24/2022 at 3:00. If you have any questions, please call [phone].) Discharge Diet: Cardiac Discharge Activity: Resume usual activity Patient Instructions: Allopurinol (By mouth) (Zyloprim), Metoprolol (By mouth) (Lopressor, Toprol XL), Metoprolol (By mouth), Nitroglycerin (By mouth) (Nitro- Time), Nitroglycerin, Rapid Release (By mouth), Atorvastatin (By mouth) (Lipitor), Fenofibrate (By mouth) (Tricor, Fenoglide, Antara, Lipofen), Cefdinir (By mouth) (Omnicef), Duloxetine (By mouth) (Cymbalta, Michael, Eve You), Apixaban (By mouth) (Eliquis), Sacubitril/Valsartan (By mouth) (Entresto), Heart Failure (DC), Aortic Stenosis (DC), Chronic Kidney Disease (DC), Nonruptured Abdominal Aortic Aneurysm (DC), Chronic Hypertension (DC), Acute Respiratory Failure (GEN), CHF Stoplight, Opioid Safety Activity Restrictions/Additional Instructions: -if recurrent chest pain please go to emergency room -take lasix 40 mg once a day -if you develop recurrent edema or shortness of breath go to emergency room -follow up with primary care in 1 week -see cardiology in 2 weeks -see ct surgery in 4 weeks Discharge Attestations Time Spent in Discharge Care*: greater than 30 min Quality Metrics Clinical Quality Measures [ No reported AMI, CVA or VTE this stay] Coding Level of Care Code Acute Chg FW DC note Diagnoses CHF exacerbation I50.9 Congestive heart failure I50.9 Elective replacement indicated for cardiac pacemaker battery at end of lifespan Z45.010 Systolic congestive heart failure with reduced left ventricular function, NYHA class 4 I50.20 Nonrheumatic aortic (valve) stenosis I35.0 Transaminitis R74.01 Obesity E66.9 Goals of care, counseling/discussion Z71.89 Anemia D64.9 GERD without esophagitis K21.9 Ischemic cardiomyopathy I25.5 Chronic kidney disease N18.9 HTN (hypertension) I10 Hypertension type: essential hypertension Type 2 diabetes mellitus E11.9 Acute respiratory failure with hypoxia J96.01 Ascending aortic aneurysm I71.21
--- NOTE | 2022-09-22 14:22 | NMCV_ITS ---
NM adrianna perf SPECT r/s* [id number] Pawan Marcum Age: 67 Gender: M : 1955 Exam Date: 09/22/2022 06:57 Ordering Phys: Ayush Krishnamurthy MD Technologist: CAMILLA Dumont Exam Location: [facility] Indications: CHEST PAIN STRESS TEST Please see separate stress test report in [facility] for full findings IMAGE PROTOCOL Rest/Stress 1 Lexiscan Day Radiopharmaceutical Dose (mCi) Administration Site Administered by Rest: Tc-99m 10.8 IV CAMILLA Schmitt Sestamibi Stress:Tc-99m 32.4 IV CAMILLA Dumont Sestamilucien Rest: 22-Sep-2022 60 Discovery 630 Stress: 22-Sep-2022 30 Discovery 630 0.4mg Lexiscan. Images obtained in supine and prone position. SPECT RESULTS Technical Quality: Excellent Raw Data Analysis: Normal Image Corrections: No attenuation or motion correction applied Summed Stress Score: 2 Summed Rest Score: 1 Summed Difference Score: 1 PERFUSION FINDINGS Small sized perfusion abnormality of mild severity of basal to mid inferolateral macias on stress images. FUNCTIONAL RESULTS (calculated via Gated SPECT) Stress Image LV EF (%): 49 Stress EDV (mL):217 TID: 1 Stress ESV (mL):111 FUNCTIONAL FINDINGS: The left ventricle is normal in size. Transient Ischemia Dilatation of 1. The left ventricular ejection fraction is mildly reduced with a value of 49%. There is mild global hypokinesis. Increased end diastolic and end systolic volumes. IMPRESSIONS 1. Small sized reversible perfusion abnormality of mild severity of basal to mid inferolateral macias. 2. This may represent small area of ischemia in circumflex artery territory. 3. The left ventricular ejection fraction is mildly reduced with a value of 49%.There is mild global hypokinesis. 4. EKG portion of the study will be reported separately. Ally Beverly MD (Electronically Signed) Final Date: 22 September 2022 14:05 S
--- NOTE | 2022-09-22 15:28 | PC.NURSE ---
discharge instructions given and explained.pt and spouse verb understanding of instructions .discharged via w/c to exit at this time.
== END 2022-09-22 15:30 | disposition home or self-care (01) | DRG 291 ==
LOC: ER 23:45 → ER IP 09-17 06:06 → CSU 09-17 16:31
PROVIDERS: Internal Medicine; Internal Medicine Medical Oncology; Admitting Provider Family Medicine; Emergency Provider Emergency Medicine; PCP Family Medicine; Visit Provider Family Medicine
DX: I13.0 Hypertensive heart and chronic kidney disease with heart failure and stage 1 through stage 4 chronic kidney disease, or unspecified chronic kidney disease (principal); I50.23 Acute on chronic systolic (congestive) heart failure; J96.21 Acute and chronic respiratory failure with hypoxia; N17.9 Acute kidney failure, unspecified; N18.9 Chronic kidney disease, unspecified; E11.22 Type 2 diabetes mellitus with diabetic chronic kidney disease; Z95.0 Presence of cardiac pacemaker; E66.9 Obesity, unspecified; Z68.33 Body mass index [BMI] 33.0-33.9, adult; D63.1 Anemia in chronic kidney disease; K21.9 Gastro-esophageal reflux disease without esophagitis; I71.60 Thoracoabdominal aortic aneurysm, without rupture, unspecified; I25.10 Atherosclerotic heart disease of native coronary artery without angina pectoris; Z95.1 Presence of aortocoronary bypass graft; I48.91 Unspecified atrial fibrillation; J40 Bronchitis, not specified as acute or chronic; Z79.85 Long-term (current) use of injectable non-insulin antidiabetic drugs; Z79.84 Long term (current) use of oral hypoglycemic drugs; E78.2 Mixed hyperlipidemia; R21 Rash and other nonspecific skin eruption; D69.6 Thrombocytopenia, unspecified; D53.9 Nutritional anemia, unspecified; I27.20 Pulmonary hypertension, unspecified; Z95.3 Presence of xenogenic heart valve; Z87.01 Personal history of pneumonia (recurrent); I08.0 Rheumatic disorders of both mitral and aortic valves; I42.8 Other cardiomyopathies; M10.00 Idiopathic gout, unspecified site; M51.37 Other intervertebral disc degeneration, lumbosacral region
CPT/HCPCS: 36415; 36416; 36600; 71045; 71275; 76705; 78452; 80053; 80061; 82274; 82728; 82805; 82962; 83010; 83036; 83540; 83615; 83735; 83880; 84145; 84443; 84484; 85025; 85378; 86140; 86356; 93005; 93017; 93306; 94660; 94664; 96372; 96374; 99285; A9500; C9113; J0696; J1815; J1940; J2785; J3490; Q9967

== ENCOUNTER 2022-09-25 08:30 | Oncology outpatient (recurring) (ONCR) | payer MEDICARE, MEDICAID, SELFPAY ==
[2022-09-08 12:14] LABS: Reticulocyte % 5.9 % (0.5-2.0)
[2022-09-08 12:15] LABS: Basophils % 0.3 %; Eosinophils % 0.4 %; Hematocrit 22.3 % (42.0-52.0); Hemoglobin 6.7 g/dL (11.7-16.6); Lymphocytes # 1.4 10^3/uL (0.8-4.8); Lymphocytes % 20.3 %; Mean Corpuscular Hemoglobin 32.7 pg (28.0-34.0); Mean Corpuscular Volume 108.8 fl (80-94); Mean Platelet Volume 9.8 fL (7.4-10.4); Monocytes # 0.3 10^3/uL (0.2-0.9); Monocytes % 4.6 %; Neutrophils # 5.24 10^3/uL (1.8-7.7); Neutrophils % 73.8 %; Nucleated Red Blood Cells % 0.6 %; Platelet Count 148 10^3/cmm (130-400); Red Blood Count 2.05 10^6/uL (4.1-5.3); Red Cell Distribution Width 17.2 % (12.1-15.1); White Blood Count 7.1 10^3/uL (4.0-10.0)
[2022-09-08 12:30] LABS: LAB Peripheral Smear Sent for Review
[2022-09-08 12:42] LABS: Alanine Aminotransferase 11 U/L (0-41); Alkaline Phosphatase 39 U/L (40-130); Anion Gap 11.2 (5-19); Aspartate Amino Transferase 24 U/L (0-40); Blood Urea Nitrogen 34 mg/dL (8-23); C Reactive Protein 24.7 mg/L (0.0-4.9); Calcium 8.7 mg/dL (8.5-10.5); Carbon Dioxide 24 mmol/L (22-29); Chloride 101 mmol/L (98-107); Globulin 5.5 g/dL (1.3-4.6); Glomerular Filtration Rate 38.1 mL/min (90-130); Glucose 137 mg/dL (65-115); Iron 49 ug/dL (59-158); Lactate Dehydrogenase 361 U/L (135-225); Osmolality Calculated 284 mOsm/kg (285-295); Percent Saturation 18.4 % (20-50); Potassium 4.2 mmol/L (3.5-5.1); Sodium 132 mmol/L (136-145); Total Bilirubin 0.7 mg/dL (0.15-1.2); Total Iron Binding Capacity 265 mcg/dl; Total Protein 8.5 g/dL (6.6-8.7); Unsaturated Iron Binding 216 ug/dL (112-347)
[2022-09-09 11:24] LABS: KAPPA LIGHT CHAIN, FREE, SERUM 205.3 mg/L (3.3-19.4); KAPPA/LAMBDA LIGHT CHAINS FREE 1.06 (0.26-1.65); LAMBDA LIGHT CHAIN, FREE, SERU 193.3 mg/L (5.7-26.3)
[2022-09-09 11:38] LABS: PROTEIN, TOTAL 9.5 g/dL (6.1-8.1)
[2022-09-09 18:31] LABS: Erythrocyte Sedimentation Rate 128 mm/hr (0-10)
[2022-09-11 17:38] LABS: ALBUMIN 3.4 g/dL (3.8-4.8); ALPHA 1 GLOBULIN 0.5 g/dL (0.2-0.3); ALPHA 2 GLOBULIN 0.5 g/dL (0.5-0.9); BETA 1 GLOBULIN 0.5 g/dL (0.4-0.6); BETA 2 GLOBULIN 0.3 g/dL (0.2-0.5); GAMMA GLOBULIN 4.3 g/dL (0.8-1.7)
[2022-09-12] MEDS: acetaminophen 325 mg Tablet 650 MG PO (08:18)
[2022-09-12] MEDS: diphenhydrAMINE 25 mg Capsule PO (08:18)
[2022-09-12] MEDS: sodium chloride 0.9% 250 mL Bag IV (08:22)
[2022-09-12 08:30] VITALS: BP 132/82; PULSE 70; RESP 16; TEMP 36.2; O2SAT 94
[2022-09-12 08:45] VITALS: BP 127/80; PULSE 70; RESP 18; TEMP 36.6; O2SAT 91
[2022-09-12 09:00] VITALS: BP 141/80; PULSE 70; RESP 18; TEMP 36.2; O2SAT 99
[2022-09-12 09:30] VITALS: BP 137/87; PULSE 70; RESP 18; TEMP 35.9; O2SAT 95
[2022-09-12 10:02] VITALS: BP 134/81; PULSE 70; RESP 20; TEMP 36.2; O2SAT 91
[2022-09-12 10:15] VITALS: BP 134/81; PULSE 70; RESP 20; TEMP 36.2; O2SAT 91
[2022-09-15 08:39] LABS: Basophils % 0.2 %; Eosinophils # 0.1 10^3/uL (0.0-0.8); Eosinophils % 0.5 %; Hematocrit 25.6 % (42.0-52.0); Lymphocytes # 1.8 10^3/uL (0.8-4.8); Lymphocytes % 17.8 %; Mean Corpuscular HGB Conc 31.3 g/dL (30.0-36.0); Mean Corpuscular Hemoglobin 32.8 pg (28.0-34.0); Mean Corpuscular Volume 104.9 fl (80-94); Mean Platelet Volume 9.9 fL (7.4-10.4); Monocytes # 0.4 10^3/uL (0.2-0.9); Monocytes % 3.7 %; Neutrophils # 7.81 10^3/uL (1.8-7.7); Nucleated Red Blood Cells # 0.2 /100WBC; Nucleated Red Blood Cells % 1.5 %; Platelet Count 115 10^3/cmm (130-400); Red Blood Count 2.44 10^6/uL (4.1-5.3); Red Cell Distribution Width 20.7 % (12.1-15.1); White Blood Count 10.3 10^3/uL (4.0-10.0)
[2022-09-25 09:00] LABS: Basophils % 0.5 %; Eosinophils # 0.1 10^3/uL (0.0-0.8); Eosinophils % 1.3 %; Hematocrit 27.9 % (42.0-52.0); Hemoglobin 8.3 g/dL (11.7-16.6); Lymphocytes # 1.8 10^3/uL (0.8-4.8); Lymphocytes % 29.1 %; Mean Corpuscular HGB Conc 29.7 g/dL (30.0-36.0); Mean Corpuscular Hemoglobin 32.2 pg (28.0-34.0); Mean Corpuscular Volume 108.1 fl (80-94); Mean Platelet Volume 10.7 fL (7.4-10.4); Monocytes # 0.4 10^3/uL (0.2-0.9); Monocytes % 6.5 %; Neutrophils # 3.74 10^3/uL (1.8-7.7); Neutrophils % 62.3 %; Nucleated Red Blood Cells % 0 %; Platelet Count 131 10^3/cmm (130-400); Red Blood Count 2.58 10^6/uL (4.1-5.3); Red Cell Distribution Width 18.2 % (12.1-15.1)
== END 2022-09-30 23:59 | disposition home or self-care (01) ==
PROVIDERS: PCP Family Medicine; Visit Provider Internal Medicine Medical Oncology
DX: D64.9 Anemia, unspecified (principal)
CPT/HCPCS: 36415; 36430; 80053; 82248; 83010; 83540; 83550; 83615; 83883; 84155; 84165; 85025; 85045; 85651; 86140; 86850; 86880; 86900; 86920; 99204; J7050; P9016

== ENCOUNTER → 2022-09-26 08:56 | Outpatient (BNVA) | payer MEDICARE, SELFPAY | PROVIDERS: PCP Family Medicine; Visit Provider Internal Medicine Cardiovascular Disease | DX: Z45.010 Encounter for checking and testing of cardiac pacemaker pulse generator [battery] (principal) | CPT/HCPCS: 93280 ==

== ENCOUNTER 2022-10-06 10:34 | Day surgery (SDC) | payer MEDICARE, MEDICAID, SELFPAY ==
[2022-10-03 08:38] VITALS: BMI 36.1
[2022-10-06 10:45] VITALS: BP 157/99; PULSE 72; RESP 22; TEMP 36.4; O2SAT 83
[2022-10-06 10:46] VITALS: PULSE 68; RESP 22; O2SAT 92
[2022-10-06 10:50] VITALS: PULSE 72; RESP 22; O2SAT 98
--- NOTE | 2022-10-06 11:07 | PC.NURSE ---
1045 patient walked to gi room 1. has own o2 tank but did not have it on. with patients states he is supposed to be wearing 3L of o2, but does not regularly use it. o2 sat 83%, placed on 3l o2 via nc o2 up to 98%
[2022-10-06 11:12] LABS: Basophils % 0.4 %; Eosinophils # 0.1 10^3/uL (0.0-0.8); Eosinophils % 1.2 %; Hematocrit 28.2 % (42.0-52.0); Hemoglobin 8.6 g/dL (11.7-16.6); Lymphocytes # 1.6 10^3/uL (0.8-4.8); Lymphocytes % 21.4 %; Mean Corpuscular HGB Conc 30.5 g/dL (30.0-36.0); Mean Corpuscular Hemoglobin 32.3 pg (28.0-34.0); Mean Platelet Volume 9.3 fL (7.4-10.4); Monocytes # 0.3 10^3/uL (0.2-0.9); Monocytes % 4.4 %; Neutrophils # 5.51 10^3/uL (1.8-7.7); Neutrophils % 72.1 %; Nucleated Red Blood Cells % 0 %; Platelet Count 145 10^3/cmm (130-400); Red Blood Count 2.66 10^6/uL (4.1-5.3); White Blood Count 7.7 10^3/uL (4.0-10.0)
[2022-10-06 11:13] LABS: Glucose Point of Care 116 mg/dL (70-110)
[2022-10-06] MEDS: sodium chloride 0.9% 1,000 ML 30 ML IV (11:13)
--- NOTE | 2022-10-06 11:32 | ANES.PREANE2 ---
Pre-Anesthetic Assessment Height/Weight: Height 1.75 m Weight 111.13 kg Temp Pulse Resp BP Pulse Ox O2 Del Method O2 Flow Rate 97.5 F L 72 22 H 157/99 98 3 10/06/22 10:45 10/06/22 10:50 10/06/22 10:50 10/06/22 10:45 10/06/22 10:50 10/06/22 10:50 10/06/22 10:50 Preop Diagnosis: pacemaker ALYX Operation Date: 10/06/22 12:00 Proposed Procedures p Bone Marrow Biospy With Aspiration(Not Applicable) - Ajay Child MD Familial anesthetic complications: none Last intake: Intake Last Liquid Date 10/05/22 Last Liquid Time 23:59 Last Solid Date 10/05/22 Last Solid Time 23:59 Social No alcohol and No tobacco Exam alert, oriented x 3, clear to auscultation bilaterally and regular rate & rhythm 3 L O2, more if recumbent Airway Mallampati: Class III Dentition: full CV/HEM Anemia and Congestive Heart Failure pacemaker, ischemic cardiomyopathy, aortic stenosis s/p replacemetn in 2017, ascending aortic aneursym 09/22 stress test 1. Non diagnostic EKG changes with the LexiScan infusion due to baseline paced rhythm. 2. No LexiScan induced chest pain or cardiac arrhythmia. 3. Normal blood pressure and heart rate response. 4. Sestamibi/sestamibi perfusion scan pending; see separate report. 09/22 echo ?CONCLUSIONS ?LV systolic function is moderately reduced with EF of 35 to 40%. ?Moderate global hypokinesis seen. ?RV appears hypokinetic ?Dilated left atrium ?Mild mitral regurgitation ?Bioprosthetic aortic valve is functioning appropriately.? DVI is ?normal at 0.36.? Aortic valve area is 1.16 cm squared with a mean ?gradient across aortic valve of 17.8 mmHg. ?Mild mild tricuspid regurgitation ?Moderate pulmonary hypertension ?Ascending aorta is dilated with a diameter of 5 cm ?Compared to prior echocardiogram from 09/19/2021, LV systolic ?function appears to have decreased and is 35 to 40% now.? ?Ascending aorta also appears to be significantly dilated now ?with diameter of 5 cm 09/22 perfusion scan IMPRESSIONS ?1. Small sized reversible perfusion abnormality of mild severity of basal to ?mid inferolateral macias. ?2. This may represent small area of ischemia in circumflex artery territory. ?3. The left ventricular ejection fraction is mildly reduced with a value of ?49%.There is mild global hypokinesis. ?4. EKG portion of the study will be reported separately. Chronic Renal Insufficiency GI Gastroesophageal Reflux Disease Metabolic Diabetes Mellitus, Hyperlipidemia and Morbid Obesity Anesthetic Plan ASA status: 4 Anesthesia: MAC Risk of > 500 ml blood loss (7ml/kg in children): No Medications/Allergies Home Medications Medication Instructions Recorded Confirmed Last Taken Type diabetic shoes with inserts #1 ea 02/28/21 09/23/22 08/12/22 Rx Diabetic shoes with inserts #1 ea 12/05/21 09/23/22 08/12/22 Rx Blood pressure cuff and machine #1 ea 06/27/22 09/23/22 08/12/22 Rx o2 at 3L per nasal cannula #1 ea 08/11/22 09/23/22 08/12/22 Rx potassium chloride 20 mEq 20 meq PO BID 08/17/22 10/06/22 10/03/22 History tablet,extended release(part/cryst) famotidine 40 mg tablet 40 mg PO PRN PRN Abdominal 09/09/22 10/06/22 09/29/22 History Discomfort ferrous sulfate 325 mg (65 mg 325 mg PO DAILY #30 tabs 09/10/22 10/06/22 10/04/22 Rx iron) tablet (Feosol) dulaglutide 0.75 mg/0.5 mL 0.75 mg SUBCUT Q7D 09/17/22 10/06/22 09/30/22 History subcutaneous pen injector (Trulicity) fenofibrate 160 mg tablet 160 mg PO DAILY 09/17/22 10/06/22 10/03/22 History furosemide 20 mg tablet 40 mg PO DAILY 09/17/22 10/06/22 10/04/22 History ondansetron HCl 8 mg tablet 8 mg PO Q8H PRN Nausea And Vomiting 09/17/22 10/06/22 10/05/22 History pregabalin 100 mg capsule 100 mg PO TID 09/17/22 10/06/22 10/04/22 History duloxetine 20 mg capsule,delayed 20 mg PO BID 30 days #60 caps 09/22/22 10/06/22 09/29/22 Rx release Allergies Allergy/AdvReac Type Severity Reaction Status Date / Time lisinopril AdvReac Mild Coughing Verified 09/17/22 08:32 Current Medications Generic Name Dose Route Start Last Admin Trade Name Maisha PRN Reason Stop Dose Admin Sodium Chloride 1,000 mls @ 30 mls/hr 10/06/22 10:45 10/06/22 11:13 Sodium Chloride 0.9% IV 10/07/22 10:44 30 mls/hr .Q24H JOSÉ Administration PFSH Anesthesia Medical History Acute and chronic respiratory failure with hypoxia Anemia Chronic kidney disease DDD (degenerative disc disease), lumbosacral Erectile dysfunction HTN (hypertension) Idiopathic gout, right ankle and foot Mixed hyperlipidemia Nonischemic cardiomyopathy Nonrheumatic aortic (valve) stenosis Pneumonia Type 2 diabetes mellitus Surgical History History of cardiac pacemaker Hx of arthroscopy of left knee Hx of heart surgery (2017) Aortic valve replacement and aneurysm repair Hx of tooth extraction Family History Mother CAD (coronary artery disease) Brother Cancer Other Hypertension Denies family history of Diabetes Clotting disorder Dementia Chronic kidney disease (CKD) Suicide Anesthesia complication Bleeding disorder Lung disease Stroke Social History Smoking and tobacco status: never smoked Second hand smoke exposure: No Alcohol intake: current Alcohol intake frequency: holidays/special occasions only Adopted: No Caregiver/support person: Yes (spouse) Lives independently: Yes Household members: spouse and children Housing: House Marital status: Number of children: 3 Number of grandchildren: 3 Highest education level completed: 6th Grade service: No Current occupational status: disabled Pets and animals: Yes History of recent travel: No Current gender identity: Male Special pola needs: No Agree to transfusion: Yes Data Anesthesia 10/06/22 10:55 Short CBC 10/06/22 Range/Units 10:55 WBC 7.7 (4.0-10.0) 10^3/uL Hgb 8.6 L (11.7-16.6) g/dL Hct 28.2 L (42.0-52.0) % MCV 106.0 H (80-94) fl Plt Count 145 (130-400) 10^3/cmm Neut % (Auto) 72.1 % Neut # (Auto) 5.51 (1.8-7.7) 10^3/uL Cardiac Studies: Echocardiogram 09/17/22 Echocardiogram Ultrasound 12/09/19 Sestamibi Stress Test (Cardiology) 09/22/22
--- NOTE | 2022-10-06 12:06 | W.PM.OPSUD ---
Surgery/Procedure H&P Update DATE OF PROCEDURE: October 06, 2022 DATE H&P PERFORMED: 08/15/22 CHANGES TO PREVIOUS DOCUMENTATION: Patient seen, examined, no obvious new symptoms since his prior visit to the clinic PREOP DIAGNOSIS: pacemaker ALYX PRIMARY INDICATION FOR PROCEDURE: Anemia PLANNED PROCEDURE: Operation Date: 10/06/22 12:00 Proposed Procedures p Bone Marrow Biospy With Aspiration(Not Applicable) - Ajay Child MD
--- NOTE | 2022-10-06 12:29 | P.PCN_ITS ---
Bone Marrow Biopsy Bone Marrow Biopsy: I was consulted by [] office regarding bone marrow biopsy on [Pawan Marcum]. Briefly, the patient is a [67] year old [Male] with [Anemia]. In the Outpatient Services Department, with nursing staff and laboratory technologists in attendance, the procedure was discussed with the patient. Appropriate consent form had been signed. Appropriate alternatives, benefits and risks of procedure were discussed with the patient and he was pre- operatively assessed with a history and physical by myself and cleared for the biopsy procedure. The patient did request IV sedation and that was provided by the Anesthesia Department. Under aseptic condition right posterior iliac area was cleaned and prepped, local anesthesia was given and about 15 cc of bone marrow aspirate and core biopsy was obtained, patient tolerated procedure well, hemostasis was obtained, specimen was sent for routine histopathology, flow cytometry, cytogenetics and FISH for MDS and further orders per Dr. Payne. Postprocedure nursing instructions were given. Thank you for allowing me to participate in this patient's care and diagnosis. Coding Level of Care Code Acute Code for Janelle Fwvelma
[2022-10-06 12:31] VITALS: BP 130/87; PULSE 68; RESP 18; TEMP 36.4; O2SAT 95
[2022-10-06 12:34] VITALS: BP 136/89; PULSE 70; RESP 18; O2SAT 96
--- NOTE | 2022-10-06 12:37 | ANE.PACU2 ---
Inpatient post-anesthesia follow up: Airway intact: Yes Vital signs: Temperature 97.5 F Pulse Rate 72 Respiratory Rate 22 Blood Pressure 157/99 Pulse Oximetry 98 Oxygen Delivery Me thod Nasal Cannula Oxygen Flow Rate 3 Fraction of Inspir ed Oxygen Hydration adequate: Yes Nausea and vomiting: No Pain level: 1 Mental status: Baseline
[2022-10-06 12:44] VITALS: BP 136/90; PULSE 69; RESP 20; O2SAT 95
[2022-10-07 13:06] LABS: Leukemia Profile (BBPL) See Report; Lymphoma Profile (BBPL) See Report
[2022-10-14 12:35] LABS: MDS Panel (BBPL) See Report
[2022-10-14 12:38] LABS: Chromosome Analysis BBPL See Report
== END 2022-10-06 13:08 | disposition home or self-care (01) ==
PROVIDERS: PCP Family Medicine; Visit Provider Internal Medicine Hematology & Oncology
PROC: 07DT3ZX Extraction of Bone Marrow, Percutaneous Approach, Diagnostic (ICD-10-PCS; CPT 38222; principal; 2022-10-06 12:00)
DX: D64.9 Anemia, unspecified (principal); E11.22 Type 2 diabetes mellitus with diabetic chronic kidney disease; I13.0 Hypertensive heart and chronic kidney disease with heart failure and stage 1 through stage 4 chronic kidney disease, or unspecified chronic kidney disease; N18.9 Chronic kidney disease, unspecified; I50.9 Heart failure, unspecified; Z95.0 Presence of cardiac pacemaker; I42.9 Cardiomyopathy, unspecified; I25.5 Ischemic cardiomyopathy; K21.9 Gastro-esophageal reflux disease without esophagitis; E78.5 Hyperlipidemia, unspecified; E66.01 Morbid (severe) obesity due to excess calories; Z68.36 Body mass index [BMI] 36.0-36.9, adult; E78.2 Mixed hyperlipidemia
CPT/HCPCS: 36415; 36416; 38222; 82962; 85025; 86850; 86900; 88184; 88185; 88237; 88264; 88291; 88305; 88311; 88367; 88374; J2704; J7030

== ENCOUNTER → 2022-10-08 10:42 | Outpatient (BNVA) | payer MEDICARE, MEDICAID, SELFPAY | PROVIDERS: PCP Family Medicine; Visit Provider Internal Medicine Cardiovascular Disease | DX: J96.21 Acute and chronic respiratory failure with hypoxia (principal); I71.21 Aneurysm of the ascending aorta, without rupture; E66.9 Obesity, unspecified; Z68.37 Body mass index [BMI] 37.0-37.9, adult; D64.9 Anemia, unspecified; I35.0 Nonrheumatic aortic (valve) stenosis; Z95.0 Presence of cardiac pacemaker; I48.91 Unspecified atrial fibrillation; I13.0 Hypertensive heart and chronic kidney disease with heart failure and stage 1 through stage 4 chronic kidney disease, or unspecified chronic kidney disease; N18.9 Chronic kidney disease, unspecified; I50.20 Unspecified systolic (congestive) heart failure; E11.22 Type 2 diabetes mellitus with diabetic chronic kidney disease; Z79.85 Long-term (current) use of injectable non-insulin antidiabetic drugs | CPT/HCPCS: 99215 ==

== ENCOUNTER 2022-10-23 08:00 | Oncology outpatient (recurring) (ONCR) | payer MEDICARE, MEDICAID, SELFPAY ==
[2022-10-02] VITALS (9 sets, daily range): BP systolic 109–161; BP diastolic 71–102; PULSE 70–90; RESP 16–20; TEMP 36.7–36.9; O2SAT 93–98
[2022-10-02 08:55] LABS: Basophils % 0.3 %; Eosinophils # 0.1 10^3/uL (0.0-0.8); Eosinophils % 1.3 %; Hematocrit 22.7 % (42.0-52.0); Hemoglobin 6.9 g/dL (11.7-16.6); Lymphocytes # 1.2 10^3/uL (0.8-4.8); Lymphocytes % 19.3 %; Mean Corpuscular HGB Conc 30.4 g/dL (30.0-36.0); Mean Corpuscular Hemoglobin 32.9 pg (28.0-34.0); Mean Corpuscular Volume 108.1 fl (80-94); Mean Platelet Volume 10.5 fL (7.4-10.4); Monocytes # 0.3 10^3/uL (0.2-0.9); Neutrophils # 4.51 10^3/uL (1.8-7.7); Neutrophils % 73.4 %; Nucleated Red Blood Cells % 0.5 %; Platelet Count 160 10^3/cmm (130-400); Red Cell Distribution Width 18.2 % (12.1-15.1); White Blood Count 6.2 10^3/uL (4.0-10.0)
[2022-10-02] MEDS: diphenhydrAMINE 25 mg Capsule PO (10:30)
[2022-10-02] MEDS: acetaminophen 325 mg Tablet 650 MG PO (10:30)
[2022-10-02] MEDS: sodium chloride 0.9% 250 mL Bag IV (10:30)
[2022-10-09] VITALS (7 sets, daily range): BP systolic 138–152; BP diastolic 78–106; PULSE 68–72; RESP 16–18; TEMP 36.4–36.7; O2SAT 94–98
[2022-10-09 09:17] LABS: Basophils % 0.6 %; Eosinophils # 0.1 10^3/uL (0.0-0.8); Eosinophils % 0.9 %; Hematocrit 26.1 % (42.0-52.0); Hemoglobin 7.9 g/dL (11.7-16.6); Lymphocytes # 1.5 10^3/uL (0.8-4.8); Lymphocytes % 22.8 %; Mean Corpuscular HGB Conc 30.3 g/dL (30.0-36.0); Mean Corpuscular Hemoglobin 32.2 pg (28.0-34.0); Mean Corpuscular Volume 106.5 fl (80-94); Mean Platelet Volume 10.2 fL (7.4-10.4); Monocytes # 0.3 10^3/uL (0.2-0.9); Monocytes % 4.7 %; Neutrophils # 4.77 10^3/uL (1.8-7.7); Neutrophils % 70.7 %; Nucleated Red Blood Cells % 0.3 %; Platelet Count 142 10^3/cmm (130-400); Red Blood Count 2.45 10^6/uL (4.1-5.3); Red Cell Distribution Width 18.8 % (12.1-15.1); White Blood Count 6.8 10^3/uL (4.0-10.0)
[2022-10-09] MEDS: acetaminophen 325 mg Tablet 650 MG PO (10:14)
[2022-10-09] MEDS: sodium chloride 0.9% 250 mL Bag IV (10:15)
[2022-10-09] MEDS: diphenhydrAMINE 25 mg Capsule PO (10:26)
[2022-10-13 09:19] LABS: Basophils % 0.5 %; Eosinophils # 0.1 10^3/uL (0.0-0.8); Eosinophils % 1.9 %; Hematocrit 31.3 % (42.0-52.0); Hemoglobin 9.5 g/dL (11.7-16.6); Lymphocytes # 1.5 10^3/uL (0.8-4.8); Mean Corpuscular HGB Conc 30.4 g/dL (30.0-36.0); Mean Corpuscular Hemoglobin 30.7 pg (28.0-34.0); Mean Corpuscular Volume 101.3 fl (80-94); Mean Platelet Volume 9.9 fL (7.4-10.4); Monocytes # 0.4 10^3/uL (0.2-0.9); Monocytes % 5.8 %; Neutrophils # 5.32 10^3/uL (1.8-7.7); Neutrophils % 71.3 %; Nucleated Red Blood Cells % 0.3 %; Platelet Count 160 10^3/cmm (130-400); Red Blood Count 3.09 10^6/uL (4.1-5.3); Red Cell Distribution Width 21.9 % (12.1-15.1); White Blood Count 7.5 10^3/uL (4.0-10.0)
[2022-10-16 09:37] LABS: Basophils % 0.5 %; Eosinophils # 0.1 10^3/uL (0.0-0.8); Eosinophils % 1.4 %; Hematocrit 32.5 % (42.0-52.0); Hemoglobin 9.7 g/dL (11.7-16.6); Lymphocytes # 1.2 10^3/uL (0.8-4.8); Lymphocytes % 18.7 %; Mean Corpuscular HGB Conc 29.8 g/dL (30.0-36.0); Mean Corpuscular Hemoglobin 30.8 pg (28.0-34.0); Mean Corpuscular Volume 103.2 fl (80-94); Mean Platelet Volume 9.7 fL (7.4-10.4); Monocytes # 0.4 10^3/uL (0.2-0.9); Monocytes % 5.5 %; Neutrophils # 4.83 10^3/uL (1.8-7.7); Neutrophils % 73.7 %; Nucleated Red Blood Cells % 0 %; Platelet Count 127 10^3/cmm (130-400); Red Blood Count 3.15 10^6/uL (4.1-5.3); Red Cell Distribution Width 21.2 % (12.1-15.1); White Blood Count 6.5 10^3/uL (4.0-10.0)
[2022-10-23 08:32] LABS: Basophils % 0.7 %; Eosinophils # 0.1 10^3/uL (0.0-0.8); Eosinophils % 2.2 %; Hematocrit 28.4 % (42.0-52.0); Hemoglobin 8.7 g/dL (11.7-16.6); Lymphocytes # 1.2 10^3/uL (0.8-4.8); Lymphocytes % 22.5 %; Mean Corpuscular HGB Conc 30.6 g/dL (30.0-36.0); Mean Corpuscular Hemoglobin 31.4 pg (28.0-34.0); Mean Corpuscular Volume 102.5 fl (80-94); Mean Platelet Volume 9.6 fL (7.4-10.4); Monocytes # 0.3 10^3/uL (0.2-0.9); Monocytes % 6.3 %; Neutrophils # 3.66 10^3/uL (1.8-7.7); Neutrophils % 68.1 %; Nucleated Red Blood Cells % 0 %; Platelet Count 130 10^3/cmm (130-400); Red Blood Count 2.77 10^6/uL (4.1-5.3); Red Cell Distribution Width 19.2 % (12.1-15.1); White Blood Count 5.4 10^3/uL (4.0-10.0)
[2022-10-23 08:32] LABS: Reticulocyte % 2.3 % (0.5-2.0)
[2022-10-23 08:49] LABS: Alanine Aminotransferase 8 U/L (0-41); Albumin Level 3.1 g/dL (3.5-5.2); Alkaline Phosphatase 36 U/L (40-130); Anion Gap 11.9 (5-19); Aspartate Amino Transferase 23 U/L (0-40); Blood Urea Nitrogen 36 mg/dL (8-23); Calcium 8.8 mg/dL (8.5-10.5); Carbon Dioxide 24 mmol/L (22-29); Chloride 103 mmol/L (98-107); Globulin 5.2 g/dL (1.3-4.6); Glomerular Filtration Rate 40.7 mL/min (90-130); Glucose 208 mg/dL (65-115); Lactate Dehydrogenase 389 U/L (135-225); Osmolality Calculated 294 mOsm/kg (285-295); Potassium 3.9 mmol/L (3.5-5.1); Sodium 135 mmol/L (136-145); Total Bilirubin 0.8 mg/dL (0.15-1.2); Total Protein 8.3 g/dL (6.6-8.7)
== END 2022-10-28 23:59 | disposition home or self-care (01) ==
PROVIDERS: PCP Family Medicine; Visit Provider Internal Medicine Medical Oncology
DX: D64.9 Anemia, unspecified (principal); Z79.899 Other long term (current) drug therapy
CPT/HCPCS: 36415; 36430; 80053; 83010; 83615; 85025; 85045; 86850; 86900; 86920; 99204; 99214; J7050; P9016

== ENCOUNTER 2022-10-31 06:00 | Oncology outpatient (recurring) (ONCR) | payer MEDICARE, MEDICAID, SELFPAY ==
[2022-10-31] VITALS (11 sets, daily range): BP systolic 117–134; BP diastolic 73–86; PULSE 69–74; RESP 18–20; TEMP 23.3–36.7; O2SAT 90–94
[2022-10-31] MEDS: acetaminophen 325 mg Tablet 650 MG PO (08:41)
[2022-10-31] MEDS: sodium chloride 0.9% 250 mL Bag IV (08:42)
[2022-10-31] MEDS: diphenhydrAMINE 25 mg Capsule PO (08:42)
== END 2022-11-28 23:59 | disposition home or self-care (01) ==
PROVIDERS: PCP Family Medicine; Visit Provider Internal Medicine Medical Oncology
DX: D64.9 Anemia, unspecified (principal)
CPT/HCPCS: 36430; 80053; 85025; 86850; 86900; 86920; J7050; P9016

== ENCOUNTER → 2022-11-05 08:43 | Outpatient (BNVA) | payer MEDICARE, MEDICAID, SELFPAY | PROVIDERS: PCP Family Medicine; Visit Provider Internal Medicine Medical Oncology | DX: D64.9 Anemia, unspecified (principal) | CPT/HCPCS: 85025 ==

== ENCOUNTER → 2022-11-12 09:22 | Outpatient (BNVA) | payer MEDICARE, MEDICAID, SELFPAY | PROVIDERS: PCP Family Medicine; Visit Provider Internal Medicine Medical Oncology | DX: D64.9 Anemia, unspecified (principal) | CPT/HCPCS: 85025 ==

== ENCOUNTER → 2022-12-03 13:46 | Outpatient (BNVA) | payer MEDICARE, MEDICAID, SELFPAY | PROVIDERS: PCP Family Medicine; Visit Provider Family Medicine | DX: D64.9 Anemia, unspecified (principal); I50.9 Heart failure, unspecified | CPT/HCPCS: 80053; 85025 ==

== ENCOUNTER 2022-12-05 10:30 | Oncology outpatient (recurring) (ONCR) | payer MEDICARE, MEDICAID, SELFPAY ==
[2022-12-05 12:04] LABS: Basophils % 0.1 %; Eosinophils # 0.1 10^3/uL (0.0-0.8); Eosinophils % 0.9 %; Hematocrit 30.7 % (42.0-52.0); Hemoglobin 9.4 g/dL (11.7-16.6); Lymphocytes # 0.5 10^3/uL (0.8-4.8); Lymphocytes % 7.3 %; Mean Corpuscular HGB Conc 30.6 g/dL (30.0-36.0); Mean Corpuscular Hemoglobin 31.1 pg (28.0-34.0); Mean Corpuscular Volume 101.7 fl (80-94); Mean Platelet Volume 11.1 fL (7.4-10.4); Monocytes # 0.2 10^3/uL (0.2-0.9); Monocytes % 2.4 %; Neutrophils # 5.95 10^3/uL (1.8-7.7); Neutrophils % 88.9 %; Nucleated Red Blood Cells % 0 %; Platelet Count 138 10^3/cmm (130-400); Red Blood Count 3.02 10^6/uL (4.1-5.3); Red Cell Distribution Width 20.4 % (12.1-15.1); White Blood Count 6.7 10^3/uL (4.0-10.0)
[2022-12-05 12:19] LABS: Anion Gap 16.5 (5-19); Blood Urea Nitrogen 79 mg/dL (8-23); Calcium 8.9 mg/dL (8.5-10.5); Carbon Dioxide 27 mmol/L (22-29); Chloride 96 mmol/L (98-107); Glomerular Filtration Rate 28.7 mL/min (90-130); Glucose 159 mg/dL (65-115); Osmolality Calculated 307 mOsm/kg (285-295); Potassium 4.5 mmol/L (3.5-5.1); Sodium 135 mmol/L (136-145)
== END 2022-12-28 23:59 | disposition home or self-care (01) ==
LOC: ONCMED 12-18 07:47
PROVIDERS: PCP Family Medicine; Visit Provider Internal Medicine Medical Oncology
DX: D64.9 Anemia, unspecified (principal)
CPT/HCPCS: 80048; 85025

== ENCOUNTER 2022-12-08 12:13 | Outpatient (CLI) | payer MEDICARE, MEDICAID, SELFPAY ==
[2022-12-08 13:33] LABS: Hematocrit 30.4 % (42.0-52.0); Hemoglobin 9.5 g/dL (11.7-16.6); Mean Corpuscular HGB Conc 31.3 g/dL (30.0-36.0); Mean Corpuscular Volume 99.3 fl (80-94); Mean Platelet Volume 11.5 fL (7.4-10.4); Platelet Count 171 10^3/cmm (130-400); Red Blood Count 3.06 10^6/uL (4.1-5.3); Red Cell Distribution Width 19.5 % (12.1-15.1); White Blood Count 5.6 10^3/uL (4.0-10.0)
[2022-12-08 13:47] LABS: Anion Gap 17.2 (5-19); Calcium 8.8 mg/dL (8.5-10.5); Carbon Dioxide 26 mmol/L (22-29); Chloride 96 mmol/L (98-107); Glucose 123 mg/dL (65-115); Osmolality Calculated 315 mOsm/kg (285-295); Potassium 4.2 mmol/L (3.5-5.1); Sodium 135 mmol/L (136-145)
[2022-12-08 13:58] LABS: Absolute Eosinophils 0.1 10^3/cmm (0.0-0.7); Absolute Neutrophil 4.2 10^3/cmm (1.4-6.5); Absolute Segmented Neutrophil 4.2 10/cmm (1.6-7.1); Basophils Absolute 0.1 10^3/cmm (0.0-0.2); Eosinophils 2 %; Lymphocytes 16 %; Lymphocytes Absolute 0.9 10^3/cmm (1.2-3.4); Monocytes Absolute 0.3 10^3/cmm (0.1-0.6); Platelet Estimate Normal (Normal); Segmented Neutrophils 75 %; Total Cells Counted 100 (0-100)
[2022-12-08 14:04] LABS: Blood Urea Nitrogen 107 mg/dL (8-23)
== END 2022-12-08 12:14 | disposition home or self-care (01) ==
PROVIDERS: PCP Family Medicine; Visit Provider Family Medicine
DX: N18.31 Chronic kidney disease, stage 3a (principal)
CPT/HCPCS: 80048; 85007; 85027

== ENCOUNTER 2022-12-11 12:31 | Outpatient (CLI) | payer MEDICARE, MEDICAID, SELFPAY ==
[2022-12-11 13:08] LABS: Basophils % 0.3 %; Eosinophils % 0.7 %; Hematocrit 28.1 % (42.0-52.0); Hemoglobin 8.7 g/dL (11.7-16.6); Lymphocytes # 0.6 10^3/uL (0.8-4.8); Lymphocytes % 21.2 %; Mean Platelet Volume 11.3 fL (7.4-10.4); Monocytes # 0.2 10^3/uL (0.2-0.9); Monocytes % 6.8 %; Neutrophils # 2.07 10^3/uL (1.8-7.7); Nucleated Red Blood Cells % 0 %; Platelet Count 150 10^3/cmm (130-400); Red Blood Count 2.81 10^6/uL (4.1-5.3); Red Cell Distribution Width 18.5 % (12.1-15.1); White Blood Count 2.9 10^3/uL (4.0-10.0)
[2022-12-11 13:32] LABS: Anion Gap 16.1 (5-19); Calcium 8.8 mg/dL (8.5-10.5); Carbon Dioxide 28 mmol/L (22-29); Chloride 95 mmol/L (98-107); Glomerular Filtration Rate 22.9 mL/min (90-130); Glucose 186 mg/dL (65-115); Osmolality Calculated 316 mOsm/kg (285-295); Potassium 4.1 mmol/L (3.5-5.1); Sodium 135 mmol/L (136-145)
[2022-12-11 13:41] LABS: Blood Urea Nitrogen 101 mg/dL (8-23)
== END 2022-12-11 12:32 | disposition home or self-care (01) ==
PROVIDERS: PCP Family Medicine; Visit Provider Family Medicine
DX: N18.31 Chronic kidney disease, stage 3a (principal)
CPT/HCPCS: 80048; 85025

== ENCOUNTER 2022-12-15 10:21 | Outpatient (CLI) | payer MEDICARE, MEDICAID, SELFPAY ==
[2022-12-15 10:52] LABS: Basophils % 0.3 %; Eosinophils % 1.1 %; Hematocrit 28.9 % (42.0-52.0); Hemoglobin 8.9 g/dL (11.7-16.6); Lymphocytes # 1.3 10^3/uL (0.8-4.8); Lymphocytes % 34.9 %; Mean Corpuscular HGB Conc 30.8 g/dL (30.0-36.0); Mean Corpuscular Hemoglobin 31.4 pg (28.0-34.0); Mean Corpuscular Volume 102.1 fl (80-94); Mean Platelet Volume 10.9 fL (7.4-10.4); Monocytes # 0.3 10^3/uL (0.2-0.9); Monocytes % 8.6 %; Neutrophils # 1.98 10^3/uL (1.8-7.7); Neutrophils % 54.8 %; Nucleated Red Blood Cells % 0 %; Platelet Count 149 10^3/cmm (130-400); Red Blood Count 2.83 10^6/uL (4.1-5.3); Red Cell Distribution Width 17.7 % (12.1-15.1); White Blood Count 3.6 10^3/uL (4.0-10.0)
[2022-12-15 11:14] LABS: Anion Gap 15.4 (5-19); Blood Urea Nitrogen 80 mg/dL (8-23); Carbon Dioxide 26 mmol/L (22-29); Chloride 101 mmol/L (98-107); Glomerular Filtration Rate 27.3 mL/min (90-130); Glucose 104 mg/dL (65-115); Osmolality Calculated 310 mOsm/kg (285-295); Potassium 4.4 mmol/L (3.5-5.1); Sodium 138 mmol/L (136-145)
== END 2022-12-15 10:22 | disposition home or self-care (01) ==
LOC: LAB 10:22
PROVIDERS: PCP Family Medicine; Visit Provider Family Medicine
DX: N18.31 Chronic kidney disease, stage 3a (principal)
CPT/HCPCS: 80048; 85025

== ENCOUNTER 2022-12-22 13:10 | Outpatient (CLI) | payer MEDICARE, MEDICAID, SELFPAY ==
[2022-12-22 13:43] LABS: Basophils % 0.4 %; Eosinophils % 0.4 %; Hematocrit 27.1 % (42.0-52.0); Hemoglobin 8.5 g/dL (11.7-16.6); Lymphocytes # 1.5 10^3/uL (0.8-4.8); Lymphocytes % 19.8 %; Mean Corpuscular HGB Conc 31.4 g/dL (30.0-36.0); Mean Corpuscular Hemoglobin 32.4 pg (28.0-34.0); Mean Corpuscular Volume 103.4 fl (80-94); Mean Platelet Volume 10.2 fL (7.4-10.4); Monocytes # 0.5 10^3/uL (0.2-0.9); Monocytes % 6.9 %; Neutrophils # 5.55 10^3/uL (1.8-7.7); Neutrophils % 72.1 %; Nucleated Red Blood Cells % 0 %; Platelet Count 123 10^3/cmm (130-400); Red Blood Count 2.62 10^6/uL (4.1-5.3); Red Cell Distribution Width 17.5 % (12.1-15.1); White Blood Count 7.7 10^3/uL (4.0-10.0)
[2022-12-22 14:05] LABS: Anion Gap 10.1 (5-19); Blood Urea Nitrogen 53 mg/dL (8-23); Calcium 8.6 mg/dL (8.5-10.5); Carbon Dioxide 27 mmol/L (22-29); Chloride 102 mmol/L (98-107); Glomerular Filtration Rate 35.8 mL/min (90-130); Glucose 98 mg/dL (65-115); Osmolality Calculated 294 mOsm/kg (285-295); Potassium 4.1 mmol/L (3.5-5.1); Sodium 135 mmol/L (136-145)
[2022-12-30 17:10] LABS: Bartonella Henselae IgG AB POSITIVE; Bartonella Henselae IgM AB NEGATIVE; Bartonella Quintana IgG AB NEGATIVE
[2023-05-27 15:23] LABS: B.Henselae IgG Titer 1:16; Bartonella Quintana IgM AB NEGATIVE
== END 2022-12-22 13:11 | disposition home or self-care (01) ==
PROVIDERS: PCP Family Medicine; Visit Provider Family Medicine
DX: N18.31 Chronic kidney disease, stage 3a (principal); A44.9 Bartonellosis, unspecified; A78 Q fever
CPT/HCPCS: 80048; 85025; 86611; 86658

== ENCOUNTER 2022-12-25 13:40 | Emergency (ER) | payer MEDICARE, MEDICAID, SELFPAY ==
[2022-12-25] VITALS (8 sets, daily range): BP systolic 116–140; BP diastolic 77–93; PULSE 57–71; RESP 14; TEMP 36.5; O2SAT 93–98; BMI 32.5
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
[2022-12-25 14:32] LABS: Basophils % 0.2 %; Eosinophils % 0.4 %; Hematocrit 26.5 % (42.0-52.0); Hemoglobin 8.2 g/dL (11.7-16.6); Lymphocytes # 1.1 10^3/uL (0.8-4.8); Lymphocytes % 22.2 %; Mean Corpuscular HGB Conc 30.9 g/dL (30.0-36.0); Mean Corpuscular Hemoglobin 31.1 pg (28.0-34.0); Mean Corpuscular Volume 100.4 fl (80-94); Mean Platelet Volume 9.9 fL (7.4-10.4); Monocytes # 0.4 10^3/uL (0.2-0.9); Monocytes % 7.5 %; Neutrophils # 3.44 10^3/uL (1.8-7.7); Neutrophils % 69.3 %; Nucleated Red Blood Cells % 0 %; Platelet Count 129 10^3/cmm (130-400); Red Blood Count 2.64 10^6/uL (4.1-5.3); Red Cell Distribution Width 17.5 % (12.1-15.1)
[2022-12-25 14:46] LABS: Alanine Aminotransferase 17 U/L (0-41); Albumin Level 3.6 g/dL (3.5-5.2); Alkaline Phosphatase 26 U/L (40-130); Anion Gap 14.9 (5-19); Aspartate Amino Transferase 31 U/L (0-40); Blood Urea Nitrogen 56 mg/dL (8-23); Calcium 9.1 mg/dL (8.5-10.5); Carbon Dioxide 25 mmol/L (22-29); Chloride 98 mmol/L (98-107); Globulin 3.4 g/dL (1.3-4.6); Glomerular Filtration Rate 35.8 mL/min (90-130); Glucose 100 mg/dL (65-115); Osmolality Calculated 294 mOsm/kg (285-295); Potassium 3.9 mmol/L (3.5-5.1); Sodium 134 mmol/L (136-145); Total Bilirubin 0.5 mg/dL (0.15-1.2)
[2022-12-25 15:49] LABS: Add Urine Culture? No; Add Urine Microscopic? YES; Bilirubin Urine Neg (Negative); Blood Urine 2+ (Negative); Glucose Urine UA Norm (Normal); Ketones Urine Negative (Negative); Leukocyte Esterase Urine Negative (Negative); Nitrate Urine Negative (Negative); Protein Urine Neg (Negative); RBC Urine 0-4 /hpf (0-2); Specific Gravity, Urine 1.015 (1.005-1.030); Urine Appearance Clear (CLEAR); Urine Color Yellow (Yellow); Urobilinogen Urine Neg (Negative); pH Urine 6.5 (5-7)
[2022-12-25] MEDS: iohexol 350 mg/mL 500 mL Btl (per mL) IV (16:07)
== END 2022-12-25 17:51 | disposition home or self-care (01) ==
PROVIDERS: Emergency Provider Family Medicine; PCP Family Medicine
DX: I50.9 Heart failure, unspecified (principal); N18.9 Chronic kidney disease, unspecified; I71.21 Aneurysm of the ascending aorta, without rupture; I48.91 Unspecified atrial fibrillation; I25.5 Ischemic cardiomyopathy; Z95.0 Presence of cardiac pacemaker; D64.9 Anemia, unspecified; Z79.82 Long term (current) use of aspirin; Z79.84 Long term (current) use of oral hypoglycemic drugs; I13.0 Hypertensive heart and chronic kidney disease with heart failure and stage 1 through stage 4 chronic kidney disease, or unspecified chronic kidney disease; E11.22 Type 2 diabetes mellitus with diabetic chronic kidney disease; S00.01XA Abrasion of scalp, initial encounter; S00.81XA Abrasion of other part of head, initial encounter; E78.2 Mixed hyperlipidemia; V89.2XXA Person injured in unspecified motor-vehicle accident, traffic, initial encounter
CPT/HCPCS: 36415; 70450; 71260; 72125; 74177; 80048; 80053; 81001; 83880; 85025; 99214; 99285; Q9967

== ENCOUNTER 2022-12-30 12:34 | Outpatient (CLI) | payer MEDICARE, MEDICAID, SELFPAY ==
[2022-12-30 13:30] LABS: Basophils % 0.4 %; Eosinophils # 0.1 10^3/uL (0.0-0.8); Eosinophils % 1.2 %; Hematocrit 27.7 % (42.0-52.0); Hemoglobin 8.5 g/dL (11.7-16.6); Lymphocytes # 1.4 10^3/uL (0.8-4.8); Lymphocytes % 26.3 %; Mean Corpuscular HGB Conc 30.7 g/dL (30.0-36.0); Mean Corpuscular Hemoglobin 31.4 pg (28.0-34.0); Mean Corpuscular Volume 102.2 fl (80-94); Mean Platelet Volume 10.1 fL (7.4-10.4); Monocytes # 0.4 10^3/uL (0.2-0.9); Monocytes % 7.7 %; Neutrophils # 3.35 10^3/uL (1.8-7.7); Neutrophils % 64.2 %; Nucleated Red Blood Cells % 0 %; Platelet Count 162 10^3/cmm (130-400); Red Blood Count 2.71 10^6/uL (4.1-5.3); Red Cell Distribution Width 17.8 % (12.1-15.1); White Blood Count 5.2 10^3/uL (4.0-10.0)
[2022-12-30 14:00] LABS: Anion Gap 15.9 (5-19); Blood Urea Nitrogen 49 mg/dL (8-23); Calcium 9.2 mg/dL (8.5-10.5); Carbon Dioxide 24 mmol/L (22-29); Chloride 104 mmol/L (98-107); Glomerular Filtration Rate 31.9 mL/min (90-130); Glucose 142 mg/dL (65-115); Osmolality Calculated 305 mOsm/kg (285-295); Potassium 3.9 mmol/L (3.5-5.1); Sodium 140 mmol/L (136-145)
== END 2022-12-30 12:35 | disposition home or self-care (01) ==
LOC: LAB 12:37
PROVIDERS: PCP Family Medicine; Visit Provider Family Medicine
DX: N18.31 Chronic kidney disease, stage 3a (principal)
CPT/HCPCS: 80048; 85025

== ENCOUNTER 2023-01-05 14:49 | Outpatient (CLI) | payer MEDICARE, MEDICAID, SELFPAY ==
[2023-01-05 15:18] LABS: Basophils % 0.4 %; Eosinophils # 0.1 10^3/uL (0.0-0.8); Eosinophils % 1.5 %; Hematocrit 27.1 % (42.0-52.0); Hemoglobin 8.4 g/dL (11.7-16.6); Lymphocytes # 1.4 10^3/uL (0.8-4.8); Lymphocytes % 30.6 %; Mean Corpuscular Hemoglobin 31.9 pg (28.0-34.0); Mean Platelet Volume 10.1 fL (7.4-10.4); Monocytes # 0.4 10^3/uL (0.2-0.9); Monocytes % 9.7 %; Neutrophils % 57.4 %; Nucleated Red Blood Cells % 0 %; Platelet Count 191 10^3/cmm (130-400); Red Blood Count 2.63 10^6/uL (4.1-5.3); Red Cell Distribution Width 17.7 % (12.1-15.1); White Blood Count 4.5 10^3/uL (4.0-10.0)
[2023-01-05 15:37] LABS: Anion Gap 16.3 (5-19); Blood Urea Nitrogen 42 mg/dL (8-23); Calcium 8.7 mg/dL (8.5-10.5); Carbon Dioxide 22 mmol/L (22-29); Chloride 103 mmol/L (98-107); Glucose 82 mg/dL (65-115); Osmolality Calculated 294 mOsm/kg (285-295); Potassium 4.3 mmol/L (3.5-5.1); Sodium 137 mmol/L (136-145)
== END 2023-01-05 14:50 | disposition home or self-care (01) ==
PROVIDERS: PCP Family Medicine; Visit Provider Family Medicine
DX: N18.31 Chronic kidney disease, stage 3a (principal)
CPT/HCPCS: 80048; 85025

== ENCOUNTER → 2023-01-12 08:28 | Outpatient (BNVA) | payer MEDICARE, MEDICAID, SELFPAY | PROVIDERS: PCP Family Medicine; Visit Provider Family Medicine | DX: D64.9 Anemia, unspecified (principal); N18.9 Chronic kidney disease, unspecified; R53.83 Other fatigue | CPT/HCPCS: 80053; 84403; 85025 ==

== ENCOUNTER → 2023-01-19 11:33 | Outpatient (BNVA) | payer MEDICARE, MEDICAID, SELFPAY | PROVIDERS: PCP Family Medicine; Visit Provider Family Medicine | DX: N18.9 Chronic kidney disease, unspecified (principal); D64.9 Anemia, unspecified | CPT/HCPCS: 80053; 85025 ==

== ENCOUNTER → 2023-01-28 08:11 | Outpatient (BNVA) | payer MEDICARE, MEDICAID, SELFPAY | PROVIDERS: PCP Family Medicine; Visit Provider Family Medicine | DX: N18.9 Chronic kidney disease, unspecified (principal) | CPT/HCPCS: 80053; 85025 ==

== ENCOUNTER → 2023-01-30 10:27 | Outpatient (BNVA) | payer MEDICARE, MEDICAID, SELFPAY | PROVIDERS: PCP Family Medicine; Visit Provider Nurse Practitioner Family | DX: I48.91 Unspecified atrial fibrillation (principal); Z79.01 Long term (current) use of anticoagulants; I13.0 Hypertensive heart and chronic kidney disease with heart failure and stage 1 through stage 4 chronic kidney disease, or unspecified chronic kidney disease; E11.22 Type 2 diabetes mellitus with diabetic chronic kidney disease; N18.9 Chronic kidney disease, unspecified; I50.9 Heart failure, unspecified; Z79.84 Long term (current) use of oral hypoglycemic drugs | CPT/HCPCS: 99214 ==

== ENCOUNTER → 2023-02-09 09:41 | Outpatient (BNVA) | payer MEDICARE, MEDICAID, SELFPAY | PROVIDERS: PCP Family Medicine; Visit Provider Family Medicine | DX: D63.1 Anemia in chronic kidney disease (principal); N18.9 Chronic kidney disease, unspecified | CPT/HCPCS: 80053; 85025 ==

== ENCOUNTER → 2023-02-16 10:40 | Outpatient (BNVA) | payer MEDICARE, MEDICAID, SELFPAY | PROVIDERS: PCP Family Medicine; Visit Provider Family Medicine | DX: D63.1 Anemia in chronic kidney disease (principal); N18.9 Chronic kidney disease, unspecified | CPT/HCPCS: 80053; 85025 ==

== ENCOUNTER → 2023-03-02 08:39 | Outpatient (BNVA) | payer MEDICARE, MEDICAID, SELFPAY | PROVIDERS: PCP Family Medicine; Visit Provider Family Medicine | DX: D63.1 Anemia in chronic kidney disease (principal); N18.9 Chronic kidney disease, unspecified | CPT/HCPCS: 80053; 85025 ==

== ENCOUNTER → 2023-03-16 08:30 | Outpatient (BNVA) | payer MEDICARE, MEDICAID, SELFPAY | PROVIDERS: PCP Family Medicine; Visit Provider Family Medicine | DX: N18.9 Chronic kidney disease, unspecified (principal); E11.9 Type 2 diabetes mellitus without complications; D64.9 Anemia, unspecified | CPT/HCPCS: 80053; 85025 ==

== ENCOUNTER → 2023-03-30 08:41 | Outpatient (BNVA) | payer MEDICARE, MEDICAID, SELFPAY | PROVIDERS: PCP Family Medicine; Visit Provider Family Medicine | DX: D64.9 Anemia, unspecified (principal); N18.9 Chronic kidney disease, unspecified | CPT/HCPCS: 80053; 85025 ==

== ENCOUNTER → 2023-04-09 08:59 | Outpatient (BNVA) | payer MEDICARE, MEDICAID, SELFPAY | PROVIDERS: PCP Family Medicine; Visit Provider Internal Medicine Nephrology | DX: N17.9 Acute kidney failure, unspecified (principal) | CPT/HCPCS: 80069; 82043; 82306; 82310; 83970; 85025 ==

== ENCOUNTER 2023-04-13 12:36 | Oncology outpatient (recurring) (ONCR) | payer MEDICARE, MEDICAID, SELFPAY | END 2023-04-30 23:59 | disposition home or self-care (01) | LOC: ONCMED 12:36 | PROVIDERS: PCP Family Medicine; Visit Provider Internal Medicine Medical Oncology | DX: D58.9 Hereditary hemolytic anemia, unspecified (principal); Z79.899 Other long term (current) drug therapy | CPT/HCPCS: 99214 ==

== ENCOUNTER 2023-04-17 14:07 | Outpatient (CLI) | payer MEDICARE, MEDICAID, SELFPAY ==
--- NOTE | 2023-04-17 14:11 | XR_ITS ---
WS: [id number] Lumbar spine, 7 views including lateral views in flexion, extension and neutral position, both obliqu es, AP, L5-S1 spot, 04/17/2023 Clinical Data: M54.50 - Low back pain, unspecified Comparison: Lumbar spine, 12/13/2018 Findings: No compression fractures or subluxation is seen. There is degenerative disc narrowing at L4-L5 and L5 -S1. There is minimal spurring of the lumbar vertebral bodies. The transverse processes and SI joints are normal. The oblique films show no spondylolysis. On flexion and extension there is no limitation of motion or subluxation. There is calcification in the wall of the abdominal aorta but no aneurysm. Impression: 1. Degenerative disc narrowing at L4-L5 and L5-S1. 2. Minimal osteoarthritis of the lumbar vertebral bodies. 3. Negative for spondylolysis. 4. No limitation of motion or subluxation on flexion or extension.
== END 2023-04-17 14:08 | disposition home or self-care (01) ==
LOC: RAD 14:08
PROVIDERS: PCP Family Medicine; Visit Provider Family Medicine
DX: M51.37 Other intervertebral disc degeneration, lumbosacral region (principal); M79.604 Pain in right leg; D64.9 Anemia, unspecified
CPT/HCPCS: 72114; 80053; 82607; 82728; 82746; 83010; 83550; 83615; 85025; 85045; 86880

== ENCOUNTER → 2023-04-24 11:28 | Outpatient (BNVA) | payer MEDICARE, MEDICAID, SELFPAY | PROVIDERS: PCP Family Medicine; Visit Provider Family Medicine | DX: E11.9 Type 2 diabetes mellitus without complications (principal) | CPT/HCPCS: 83036 ==

== ENCOUNTER 2023-05-26 07:31 | Outpatient (CLI) | payer MEDICARE, MEDICAID, SELFPAY ==
--- NOTE | 2023-05-26 07:35 | CT_ITS ---
WS: [id number] CT LUMBAR SPINE, noncontrast. HISTORY: M54.50 - Low back pain, unspecified TECHNIQUE: Contiguous 2.0 mm axial imaging are performed. Sagittal and coronal reformats are submitte d and reviewed. All CT scans at [facility] use at least one of these dose optimization techni ques: automated exposure control; mA and/or kV adjustment per patient size (includes targeted exams w here dose is matched to clinical indication); or iterative reconstruction. IV contrast: None DLP: 1132.04 mGy.cm COMPARISON: 04/17/2023 radiographs Normal posterior lumbar alignment. No fractures. Vacuum disc phenomenon at L4-5. Severe disc space na rrowing with partial calcification at L5-S1. Normal alignment of the facet joints. No fractures. Ther e is subchondral cystic and lytic changes involving the superior endplate of L5. L1-2: Normal. L2-3: Mild annular disc bulging and mild facet arthritis. Very mild bilateral foraminal stenosis. L3-4: Mild diffuse annular disc bulging with encroachment upon the ventral thecal sac. Mild bilateral facet arthritis. Mild encroachment upon the subarticular recesses and bilateral foraminal stenosis, LEFT greater than RIGHT. L4-5: Moderate annular disc bulging. Disc encroaches upon the ventral thecal sac and the subarticular recesses. There is disc contacting the traversing L5 nerve roots. Moderate LEFT and mild RIGHT lane inal stenosis. Mild facet arthritis. L5-S1: Mild disc bulging. Mild osteophytic ridging. Moderate bilateral foraminal stenosis due to the disc bulging and osteophytes. Atherosclerosis within the abdominal aorta. IMPRESSION: 1. No lumbar spine fracture. 2. L4-5: Mild disc contact on the traversing L5 nerve roots with moderate LEFT and mild RIGHT foramin al stenosis. 3. L5-S1: Moderate bilateral foraminal stenosis due to disc disease and osteophytes. 4. L3-4: Mild disc encroachment upon the subarticular recesses and mild bilateral foraminal stenosis.
== END 2023-05-26 07:32 | disposition home or self-care (01) ==
PROVIDERS: PCP Family Medicine; Visit Provider Family Medicine
DX: M48.07 Spinal stenosis, lumbosacral region (principal); M79.604 Pain in right leg; M25.78 Osteophyte, vertebrae; M51.9 Unspecified thoracic, thoracolumbar and lumbosacral intervertebral disc disorder
CPT/HCPCS: 72131

== ENCOUNTER → 2023-05-27 11:16 | Outpatient (BNVA) | payer MEDICARE, MEDICAID, SELFPAY | PROVIDERS: PCP Family Medicine; Visit Provider Family Medicine | DX: M10.9 Gout, unspecified (principal) | CPT/HCPCS: 84550 ==

== ENCOUNTER → 2023-06-03 16:47 | Outpatient (BNVA) | payer MEDICARE, MEDICAID, SELFPAY | PROVIDERS: PCP Family Medicine; Visit Provider Family Medicine | DX: S63.502A Unspecified sprain of left wrist, initial encounter (principal); X58.XXXA Exposure to other specified factors, initial encounter | CPT/HCPCS: 73110 ==

== ENCOUNTER → 2023-06-10 11:50 | Outpatient (BNVA) | payer MEDICARE, MEDICAID, SELFPAY | PROVIDERS: PCP Family Medicine; Visit Provider Family Medicine | DX: M10.9 Gout, unspecified (principal); M19.90 Unspecified osteoarthritis, unspecified site | CPT/HCPCS: 84550 ==

== ENCOUNTER → 2023-06-11 08:41 | Outpatient (BNVA) | payer MEDICARE, MEDICAID, SELFPAY | PROVIDERS: PCP Family Medicine; Referring Provider Family Medicine; Visit Provider Physician Assistant | DX: M51.36 Other intervertebral disc degeneration, lumbar region (principal); M47.816 Spondylosis without myelopathy or radiculopathy, lumbar region | CPT/HCPCS: 72110; 99203 ==

== ENCOUNTER → 2023-06-29 12:31 | Outpatient (BNVA) | payer MEDICARE, MEDICAID, SELFPAY | PROVIDERS: PCP Family Medicine; Visit Provider Internal Medicine Medical Oncology | DX: D64.9 Anemia, unspecified (principal) | CPT/HCPCS: 85025; 85045 ==

== ENCOUNTER 2023-06-30 12:51 | Oncology outpatient (recurring) (ONCR) | payer MEDICARE, MEDICAID, SELFPAY | END 2023-06-30 23:59 | disposition home or self-care (01) | LOC: ONCMED 12:51 | PROVIDERS: PCP Family Medicine; Visit Provider Internal Medicine Medical Oncology | DX: D64.9 Anemia, unspecified (principal); I71.21 Aneurysm of the ascending aorta, without rupture; Z79.899 Other long term (current) drug therapy; R89.9 Unspecified abnormal finding in specimens from other organs, systems and tissues | CPT/HCPCS: 99213 ==

== ENCOUNTER → 2023-07-16 09:32 | Outpatient (BNVA) | payer MEDICARE, MEDICAID, SELFPAY | PROVIDERS: PCP Family Medicine; Visit Provider Internal Medicine Cardiovascular Disease | DX: Z95.0 Presence of cardiac pacemaker (principal); I71.21 Aneurysm of the ascending aorta, without rupture; I35.0 Nonrheumatic aortic (valve) stenosis; I25.5 Ischemic cardiomyopathy; I11.0 Hypertensive heart disease with heart failure; I50.20 Unspecified systolic (congestive) heart failure; I48.91 Unspecified atrial fibrillation | CPT/HCPCS: 99214 ==

== ENCOUNTER 2023-08-04 09:31 | Outpatient (CLI) | payer OTHER, MEDICAID, SELFPAY ==
[2023-07-27 08:59] LABS: Blood Urea Nitrogen 49 mg/dL (8-23); Glomerular Filtration Rate 30.1 mL/min (90-130)
--- NOTE | 2023-08-04 10:03 | CT_ITS ---
WS: [id number] CTA THORACIC TECHNIQUE: Contrast enhanced CTA of the thoracic aorta with coronal and sagittal reformatted images a nd maximum intensity projection (MIP) images. CLINICAL INFORMATION: Ascending aortic aneurysm COMPARISON: CTA 09/16/2022 DLP: 1013.[address] scans at [facility] use at least one of these dose optimization techniques: automated e xposure control; mA and/or kV adjustment per patient size (includes targeted exams where dose is matc hed to clinical indication); or iterative reconstruction. FINDINGS: Cardiomegaly. Sternotomy. Dilatation of the aortic root measures approximately 5.7 cm unchanged juve red to previous. Stable appearing aneurysmal dilatation of the ascending thoracic aorta with a maximu m dimension of 4.6 cm unchanged with associated aortic graft. Normal caliber descending thoracic aort a. Aortic calcification. Coronary calcification. Small RIGHT thyroid nodule unchanged. A few prominent peribronchial, anterior mediastinal, and RIGHT hilar lymph node similar to previous. These are nonspecific but may be reactive. No axillary lymphade nopathy. Adrenal glands are normal. Cholelithiasis. Celiac and SMA are patent in the upper abdomen. Small esop hageal hiatal hernia. Bibasilar atelectasis. IMPRESSION: 1. Stable dilatation of the aortic root measuring approximately 5.7 cm unchanged. 2. Stable dilatation of the ascending thoracic aorta and aortic arch measuring approximately 4.6 cm unchanged with associated aortic graft. 3. Cardiomegaly. 4. Coronary calcification. 5. Cholelithiasis. 6. Small esophageal hernia. 7. A few prominent peribronchial, anterior mediastinal, and RIGHT hilar lymph nodes similar to previ ous. These are nonspecific but may be reactive.
[2023-08-04 10:27] LABS: Blood Urea Nitrogen 39 mg/dL (8-23); Glomerular Filtration Rate 40.5 mL/min (90-130)
[2023-08-04] MEDS: iohexol 350 mg/mL 500 mL Btl (per mL) IV (10:35)
== END 2023-08-04 09:32 | disposition home or self-care (01) ==
LOC: RAD 10:01
PROVIDERS: Visit Provider Internal Medicine Cardiovascular Disease
DX: I71.21 Aneurysm of the ascending aorta, without rupture (principal); Z95.828 Presence of other vascular implants and grafts; I51.7 Cardiomegaly; I25.10 Atherosclerotic heart disease of native coronary artery without angina pectoris
CPT/HCPCS: 71275; 82565; 84520; Q9967

== ENCOUNTER → 2023-09-01 17:41 | Outpatient (BNVA) | payer OTHER, MEDICAID, SELFPAY | PROVIDERS: PCP Family Medicine; Visit Provider Family Medicine | DX: R53.83 Other fatigue (principal) | CPT/HCPCS: 84403 ==

== ENCOUNTER → 2023-09-07 15:30 | Outpatient (BNVA) | payer MEDICARE, MEDICAID, SELFPAY | PROVIDERS: PCP Family Medicine; Visit Provider Family Medicine | DX: R05.9 Cough, unspecified (principal) | CPT/HCPCS: 87400; 87426 ==

== ENCOUNTER 2023-09-17 14:34 | Inpatient (IN) | payer MEDICARE, MEDICAID, SELFPAY ==
[2023-09-17] VITALS (9 sets, daily range): BP systolic 122–165; BP diastolic 72–110; PULSE 69–75; RESP 18–30; O2SAT 73–99; BMI 36.9
--- NOTE | 2023-09-17 16:23 | XRR_ITS ---
PROCEDURE INFORMATION: Exam: XR Chest Exam date and time: 09/17/2023 4:32 PM Age: 68 years old Clinical indication: Shortness of breath; Prior surgery; Surgery date: 6+ months; Patient HX: HTN; SOB; Cabg 2015 TECHNIQUE: Imaging protocol: Radiologic exam of the chest. Views: 1 view. COMPARISON: CT angio chest [id number] 08/04/2023 10:29 AM FINDINGS: Tubes, catheters and devices: Pacer device noted in the left chest wall. Lungs: No consolidation. Pleural spaces: No pleural effusion. No pneumothorax. Heart/Mediastinum: Sequela of prior CABG. Moderate cardiomegaly. Bones/joints: Sternotomy wires noted. Visualized osseous structures are intact. XR/XR chest 1V portable [id number] IMPRESSION: Similar moderate cardiomegaly. No acute findings.
--- NOTE | 2023-09-17 16:24 | ECG_ITS ---
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 Measurements Intervals [place] Rate: 73 P: 0 OR: 0 QRS: -45 QRSD: 204 T: 116 QT: 488 QTc: 540 Interpretive Statements ELECTRONIC VENTRICULAR PACEMAKER Compared to ECG 09/16/2022 21:33:12 No significant changes Electronically Signed On 09-17-2023 17:47:17 WAXING MACHINE OPERATOR by Sagar Newell M.D. [id number]
--- NOTE | 2023-09-17 16:25 | ED_ITS ---
HPI - SOB/Dyspnea 2 General: Chief Complaint: Shortness of Breath/Dyspnea Stated Complaint: kidney and o2 trouble Time Seen by Provider: 09/17/23 14:45 Source: patient and family Mode of arrival: ambulatory Limitations: no limitations History of Present Illness: HPI Narrative: This patient comes to the emergency department because he had no improvement in symptoms over the past week. He apparently is been sick for 7 to 10 days. He saw a primary care clinic and was prescribed a Z-Chris and prednisone and did not get any improvement. He has had some cough mainly nonproductive. No known fevers. No known exposure to infectious disease but he is lives with family and there is school-aged children at home and they are always having some upper respiratory illness. He states he received testing for both influenza and COVID last week and they were both negative. He denies any ongoing chest pain. He states he has been drinking fluids but feels worse when he lies flat in bed. He has oxygen at home that he has been wearing over the past week. He had it prescribed previously but did not ever use it. He does not have a history of tobacco use or alcohol use. He has history of diabetes for which she takes Trulicity as well as metformin. He states he has been making urine as well as having normal bowel movements. He has a history of cardiomyopathy as well and has a pacemaker. MD elicited complaint: shortness of breath and cough Exacerbating factors: lying flat and exertion Associated symptoms: Deny abdominal pain, chest pain, extremity pain, fever(s), nausea, palpitations, polydipsia, polyuria or vomiting Review of Systems 2 Const: Denies: fever(s) or chills Eyes: Denies: change in vision ENMT: Denies: throat pain, odynophagia, nasal discharge or nasal congestion Card: Reports: edema and dyspnea on exertion; Denies: chest pain, palpitations or irregular heart rhythm Resp: Reports: dyspnea and non-productive cough; Denies: productive cough GI: Denies: abdominal pain, nausea, vomiting or diarrhea : Denies: flank pain, difficulty urinating or dysuria Musc: Reports: extremity swelling; Denies: neck pain, back pain or extremity pain Skin/Breast: Denies: rash Neuro: Denies: headache(s) Endo: Denies: polyuria or polydipsia [facility] ED 2 PFSH: Medical History Enrolled in chronic care management Atrial fibrillation Pneumonia Acute and chronic respiratory failure with hypoxia Erectile dysfunction Type 2 diabetes mellitus Chronic kidney disease Anemia Nonischemic cardiomyopathy Idiopathic gout, right ankle and foot Mixed hyperlipidemia Nonrheumatic aortic (valve) stenosis DDD (degenerative disc disease), lumbosacral HTN (hypertension) Surgical History History of cardiac pacemaker Hx of arthroscopy of left knee Hx of tooth extraction Hx of heart surgery (2017) Aortic valve replacement and aneurysm repair Family History Mother CAD (coronary artery disease) Brother Cancer Other Hypertension Denies family history of Diabetes Clotting disorder Dementia Chronic kidney disease (CKD) Suicide Anesthesia complication Bleeding disorder Lung disease Stroke Social History Smoking and tobacco/nicotine status: never used tobacco/nicotine Second hand smoke exposure: No Alcohol intake: current Alcohol intake frequency: holidays/special occasions only Substance/Drug Use: never Adopted: No Caregiver/support person: Yes (spouse) Lives independently: Yes Household members: spouse and children Housing: House Marital status: Number of children: 3 Number of grandchildren: 3 Highest education level completed: 6th Grade service: No Current occupational status: disabled Pets and animals: Yes Current gender identity: Male Special pola needs: No Agree to transfusion: Yes Physical Exam 2 Narrative: EXAM NARRATIVE: He is alert in no acute distress. Answers questions in a goal-directed fashion. Const: COMMON NORMALS: no acute distress and patient oriented x3 GENERAL APPEARANCE: cooperative and comfortable NUTRITIONAL APPEARANCE: overweight HENMT: COMMON NORMALS: normocephalic, atraumatic, Normal nasal mucous membranes and turbinates present, moist oral mucous membranes and oropharynx normal HEAD & SCALP: normocephalic and atraumatic NOSE: Normal nasal mucous membranes and turbinates present Eye: COMMON NORMALS: Equal, round and reactive pupils present, EOMs intact bilaterally and conjunctivae normal CONJUNCTIVA: Yes conjunctivae normal P UPIL: Yes Equal, round and reactive pupils present Neck/C-Spine: COMMON NORMALS: full ROM, no lymphadenopathy and supple Chest: COMMONS NORMALS: normal inspection of the chest Resp: COMMON NORMALS: normal respiratory effort and No retractions A USCULTATION: crackles and diminished lung sounds Cardio: COMMON NORMALS: regular rate, regular rhythm, No murmurs present (Cardio) and Peripheral pulses 2+ throughout RATE: regular rate RHYTHM: r egular rhythm PERIPHERAL PULSES: Peripheral pulses 2+ throughout GI: COMMON NORMALS: Normal to inspection, nondistended, normoactive bowel sounds present, Soft to palpation, non-tender and no masses INSPECTION: Yes central obesity PALPATION: Yes Soft to palpation Back/Pelvis: COMMON NORMALS: thoracic and lumbar spine normal to inspection, no thoracic nor lumbar tenderness and thoraco-lumbar ROM normal Extremity: COMMON NORMALS: full ROM, capillary refill normal and no calf tenderness NARRATIVE EXTREMITY EXAM: He has 1+ edema pretibial. Neuro: COMMON NORMALS: patient oriented x3, moves all extremities and no focal motor deficits CRANIAL NERVES: Yes CN normal except as noted Psych: COMMON NORMALS: mental status grossly normal Skin: COMMON NORMALS: no rashes or lesions noted, no wounds, no petechiae and no mottling GENERAL SKIN EXAM: no rashes or lesions noted Course 2 Consultations: Consultation #1: Discussed with overnight hospitalist who agreed to admit the patient for diuresis serial troponins with serial EKGs and further care as indicated by additional workup. Time: 18:29 Vital Signs: Vital signs: Vital Signs Pulse Rate 72 09/17/23 18:00 Respiratory Rate 30 H 09/17/23 14:36 Blood Pressure 165/94 09/17/23 18:00 Pulse Oximetry 97 09/17/23 18:00 Oxygen Delivery Me thod Nasal Cannula 09/17/23 18:00 Oxygen Flow Rate 4 09/17/23 18:00 MDM - SOB/Dyspnea Medical Decision Making This patient presented to the emergency department with progressive dyspnea and shortness of breath and nocturnal dyspnea. There is no associated chest pain or fevers or chills. He initially had symptoms consistent with viral syndrome and was seen in the clinic approximately a week ago and was started on azithromycin and prednisone however his symptoms persisted. Clinical examination was remarkable for a gentleman who appears to be uncomfortable but is able to converse in complete sentences without significant dyspnea. Lung sounds were notable for crackles at the bases with diminished breath sounds. He had tibial edema noted bilaterally as well. Laboratories were notable for increased BUN and creatinine as well as a marked increase in his BNP over his baseline. His initial troponin was also elevated but his EKG did not show any acute ischemic changes. X-ray showed cardiomegaly but no evidence of pulmonary congestion. He is also had elevation in his transaminases which is something that he is experienced in the past when he had exacerbation of congestive heart failure. Medical Records I reviewed the patient's medical records. Prior history of transaminitis due to passive congestion Lab Data I reviewed the patient's lab results. 09/17/23 15:02 09/17/23 15:02 Labs/Radiology: Radiology Impressions Chest X-Ray 09/17/23 16:23 IMPRESSION: Similar moderate cardiomegaly. No acute findings. Laboratory Results WBC 4.21 10^3/uL (3.29-11.43) 09/17/23 15:02 RBC 3.61 10^6/uL (3.85-5.65) L 09/17/23 15:02 Hgb 11.70 g/dL (11.27-16.99) 09/17/23 15:02 Hct 37.8 % (37-53) 09/17/23 15:02 MCV 104.7 fl (82-101) H 09/17/23 15:02 MCH 32.4 pg (27-33) 09/17/23 15:02 MCHC 31.0 g/dL (30-55) 09/17/23 15:02 RDW 15.0 % (12.1-15.1) 09/17/23 15:02 Plt Count 133 10^3/cmm (157-399) L 09/17/23 15:02 MPV 12.2 fL (7.4-10.4) H 09/17/23 15:02 Neut % (Auto) 57.9 % 09/17/23 15:02 Lymph % (Auto) 28.7 % 09/17/23 15:02 [place] % (Auto) 10.5 % 09/17/23 15:02 Eos % (Auto) 1.7 % 09/17/23 15:02 Baso % (Auto) 0.5 % 09/17/23 15:02 Neut # (Auto) 2.44 10^3/uL (1.8-7.7) 09/17/23 15:02 Lymph # (Auto) 1.2 10^3/uL (0.8-4.8) 09/17/23 15:02 [place] # (Auto) 0.4 10^3/uL (0.2-0.9) 09/17/23 15:02 Eos # (Auto) 0.1 10^3/uL (0.0-0.8) 09/17/23 15:02 Baso # (Auto) 0.0 10^3/uL (0.0-0.1) 09/17/23 15:02 Nucleated RBC % (auto) 1.2 % 09/17/23 15:02 Nucleated RBCs # 0.1 /100WBC 09/17/23 15:02 Sodium 141 mmol/L (136-145) 09/17/23 15:02 Potassium 4.6 mmol/L (3.5-5.1) 09/17/23 15:02 Chloride 106 mmol/L (98-107) 09/17/23 15:02 Carbon Dioxide 25 mmol/L (22-29) 09/17/23 15:02 Anion Gap 14.6 (5-19) 09/17/23 15:02 BUN 50 mg/dL (8-23) H 09/17/23 15:02 Creatinine 2.6 mg/dL (0.7-1.2) H 09/17/23 15:02 GFR Calculation 24.8 mL/min (90-130) L 09/17/23 15:02 Glucose 113 mg/dL (65-115) 09/17/23 15:02 Calculated Osmolality 306 mOsm/kg (285-295) H 09/17/23 15:02 Calcium 8.7 mg/dL (8.5-10.5) 09/17/23 15:02 Total Bilirubin 1.5 mg/dL (0.15-1.2) H 09/17/23 15:02 AST 531 U/L (0-40) H 09/17/23 15:02 ALT 328 U/L (0-41) H 09/17/23 15:02 Alkaline Phosphatase 46 U/L (40-130) 09/17/23 15:02 Troponin T Baseline 82 ng/L (0-15) H 09/17/23 15:02 NT-Pro-B Natriuret Pep 04888 pg/mL (0-125) H 09/17/23 15:02 Total Protein 7.8 g/dL (6.6-8.7) 09/17/23 15:02 Albumin 4.1 g/dL (3.5-5.2) 09/17/23 15:02 Globulin 3.7 g/dL (1.3-4.6) 09/17/23 15:02 All radiology interpretation(s) finalized by discharge EKG Data EKG 1: Interpretation: Resting EKG reveals a paced rhythm at 73 bpm. Occasional unifocal PVCs. No significant discordant ST segments on this tracing. Essentially unchanged from prior tracings within the system. EKG 2: I personally reviewed and interpreted this EKG as follows: Interpretation: Review of second EKG this visit reveals a ventricular rate of 70 bpm. Consistent with a electronically paced rhythm. No concordant or discordant ST-T wave changes noted at this time. No acute changes. Discharge Plan Discharge Patient Disposition: Admitted As Inpatient Clinical Impression: Transaminitis Acute on chronic congestive heart failure Qualifiers: Heart failure type: unspecified Qualified Code(s): I50.9 - Heart failure, unspecified Condition: Stable Coding Level of Care Code ED Computer Technical Specialist for Janelle Medina
[2023-09-17] MEDS: sodium chloride 0.9% 500 ML IV (16:36)
[2023-09-17 16:39] LABS: Basophils % 0.5 %; Eosinophils # 0.1 10^3/uL (0.0-0.8); Eosinophils % 1.7 %; Hematocrit 37.8 % (37-53); Lymphocytes # 1.2 10^3/uL (0.8-4.8); Lymphocytes % 28.7 %; Mean Corpuscular Hemoglobin 32.4 pg (27-33); Mean Corpuscular Volume 104.7 fl (82-101); Mean Platelet Volume 12.2 fL (7.4-10.4); Monocytes # 0.4 10^3/uL (0.2-0.9); Monocytes % 10.5 %; Neutrophils # 2.44 10^3/uL (1.8-7.7); Neutrophils % 57.9 %; Nucleated Red Blood Cells # 0.1 /100WBC; Nucleated Red Blood Cells % 1.2 %; Platelet Count 133 10^3/cmm (157-399); Red Blood Count 3.61 10^6/uL (3.85-5.65); White Blood Count 4.21 10^3/uL (3.29-11.43)
[2023-09-17 17:01] LABS: Troponin(5th) Baseline 82 ng/L (0-15)
[2023-09-17 17:12] LABS: Alanine Aminotransferase 328 U/L (0-41); Albumin Level 4.1 g/dL (3.5-5.2); Alkaline Phosphatase 46 U/L (40-130); Anion Gap 14.6 (5-19); Aspartate Amino Transferase 531 U/L (0-40); Blood Urea Nitrogen 50 mg/dL (8-23); Calcium 8.7 mg/dL (8.5-10.5); Carbon Dioxide 25 mmol/L (22-29); Chloride 106 mmol/L (98-107); Globulin 3.7 g/dL (1.3-4.6); Glomerular Filtration Rate 24.8 mL/min (90-130); Glucose 113 mg/dL (65-115); NT Pro B Type Natriuretic Pept 10096 pg/mL (0-125); Osmolality Calculated 306 mOsm/kg (285-295); Potassium 4.6 mmol/L (3.5-5.1); Sodium 141 mmol/L (136-145); Total Bilirubin 1.5 mg/dL (0.15-1.2); Total Protein 7.8 g/dL (6.6-8.7)
--- NOTE | 2023-09-17 17:39 | USR_ITS ---
PROCEDURE INFORMATION: Exam: US Abdomen, Limited; Right Upper Quadrant Exam date and time: 09/17/2023 6:05 PM Age: 68 years old Clinical indication: Bloating and other: Shortness of breath; Additional info: Look at liver and biliary tract-elevated transaminases TECHNIQUE: Imaging protocol: Real time ultrasound of the abdomen with image documentation. Limited exam focused on the right upper quadrant. COMPARISON: US abdomen limited [id number] 09/17/2022 1:11 AM FINDINGS: Liver: Moderate perihepatic ascites. No masses. Pulsatile hepatopetal flow in the main portal vein. Dilated hepatic veins and intrahepatic IVC. Gallbladder: Contracted gallbladder. 1 cm gallstone noted. Negative sonographic Sparks sign. Biliary ducts: Normal. No stones. No dilation. Pancreas: Visualized pancreas is unremarkable. Right kidney: Right kidney measures 11.5 cm in length. 9 mm simple appearing cyst noted in the upper pole. No hydronephrosis. US/US gall bladder [id number] IMPRESSION: 1. Cholelithiasis. Contracted gallbladder. 2. Moderate perihepatic ascites. 3. Dilated hepatic veins and intrahepatic IVC with pulsatile waveform in the main portal vein all findings suggestive of tricuspid regurgitation or right heart failure.
--- NOTE | 2023-09-17 18:33 | ECG_ITS ---
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 Measurements Intervals [place] Rate: 70 P: 0 LA: 0 QRS: -78 QRSD: 190 T: 108 QT: 441 QTc: 476 Interpretive Statements ELECTRONIC VENTRICULAR PACEMAKER Compared to ECG 09/17/2023 16:57:54 No significant changes Electronically Signed On 09-18-2023 12:28:35 BOOT REPAIRER by Sagar Newell M.D. [id number]
[2023-09-17] MEDS: FUROsemide 10 mg/mL SDV 2mL 20 MG IVP (18:37)
[2023-09-17 18:52] LABS: Troponin 5 2HR 77.98 ng/L (0-15)
[2023-09-17 18:57] LABS: Troponin 5 2HR Delta -4.02 ABS# (0-10)
[2023-09-17 20:18] LABS: Add Urine Microscopic? YES; Bilirubin Urine Neg (Negative); Blood Urine 2+ (Negative); Glucose Urine UA Norm (Normal); Ketones Urine Negative (Negative); Leukocyte Esterase Urine Negative (Negative); Nitrate Urine Negative (Negative); Protein Urine Neg (Negative); Urine Appearance Clear (CLEAR); Urine Color Yellow (Yellow); Urobilinogen Urine Norm (Negative); pH Urine 5 (5-7)
[2023-09-17 20:29] LABS: Add Urine Culture? No; Bacteria Urine TRACE /hpf; RBC Urine 0-4 /hpf (0-2); Squamous Epithelial Cell Urine 0-4 /hpf (0-5); WBC Urine 0-4 /hpf (0-5)
--- NOTE | 2023-09-17 21:08 | PM.HP ---
Providers/Chief Complaint Admitting Physician: Ayush Krishnamurthy Primary Care Provider: Diana Butcher MD Chief Complaint: kidney and o2 trouble History of Present Illness Pawan Marcum is a 68 year old male with a past medical history of systolic and diastolic CHF, history of EF of 35%, history of type 2 diabetes mellitus, history of history of aortic aneurysm repair, history of pacemaker placement for complete heart block, history of atrial fibrillation, history of aortic valve stenosis, history of Q fever and cat scratch fever admitted at [place] on rifabutin, who presents [facility] due to shortness of breath, increasing lower extremity edema, abdominal distention. Patient tells me that he has been increasingly short of breath, short of breath with exertion now at rest, with increasingly abdominal distention, with lower extremity edema, no chest pain, palpitations, no fevers, no cough, in the emergency room, patient was found to be hypoxic on 4 L, he only intermittently uses oxygen, Review of Systems Const: Denies: fever(s) Card: Denies: chest pain Resp: Reports: dyspnea GI: Denies: abdominal pain : Denies: flank pain or difficulty urinating Musc: Denies: back pain Neuro: Denies: headache(s) Medications/Allergies Home Medications Medication Instructions Recorded Confirmed Last Taken Type diabetic shoes with inserts #1 ea 02/28/21 09/17/23 08/12/22 Rx Blood pressure cuff and machine #1 ea 06/27/22 09/17/23 08/12/22 Rx o2 at 3L per nasal cannula #1 ea 08/11/22 09/17/23 08/12/22 Rx nitroglycerin 0.3 mg sublingual 0.3 mg sublingual Q5M PRN chest 10/08/22 09/17/23 Unknown Rx tablet pain #30 tabs Diabetic shoes with inserts #1 ea 04/24/23 09/17/23 Unknown Rx indomethacin 75 mg 75 mg PO BID #30 caps 08/11/23 09/17/23 09/17/23 Rx capsule,extended release pregabalin 300 mg capsule 300 mg PO BID #60 caps 08/13/23 09/17/23 09/17/23 Rx tizanidine 4 mg tablet 4 mg PO Q6H PRN muscle spasticity 09/03/23 09/17/23 Unknown Rx #20 tabs acetaminophen 300 mg-codeine 60 mg 1 tab PO Q8H PRN pain #90 tabs 09/16/23 09/17/23 Unknown Rx tablet apixaban 5 mg tablet (Eliquis) 5 mg PO BID 09/17/23 09/17/23 09/17/23 History aspirin 81 mg tablet,delayed 81 mg PO DAILY 09/17/23 09/17/23 09/17/23 History release atorvastatin 40 mg tablet 40 mg PO DAILY 09/17/23 09/17/23 09/17/23 History dulaglutide 1.5 mg/0.5 mL 1.5 mg SUBCUT DAILY 09/17/23 09/17/23 09/15/23 History subcutaneous pen injector (Trulicity) famotidine 40 mg tablet 40 mg PO BID 09/17/23 09/17/23 09/17/23 History fenofibrate 160 mg tablet 160 mg PO DAILY 09/17/23 09/17/23 09/17/23 History furosemide 20 mg tablet 20 mg PO DAILY EDEMA 09/17/23 09/17/23 09/17/23 History metformin 850 mg tablet 850 mg PO DAILY 09/17/23 09/17/23 Unknown History metolazone 2.5 mg tablet 2.5 mg PO DAILY PRN Edema 09/17/23 09/17/23 Unknown History rifabutin 150 mg capsule 300 mg PO DAILY 09/17/23 09/17/23 09/17/23 History sacubitril 24 mg-valsartan 26 mg 1 tab PO BID 09/17/23 09/17/23 09/17/23 History tablet (Entresto) Allergies Allergy/AdvReac Type Severity Reaction Status Date / Time lisinopril AdvReac Mild Coughing Verified 09/17/23 14:42 PFSH Acute PFSH: Medical History Enrolled in chronic care management Atrial fibrillation Pneumonia Acute and chronic respiratory failure with hypoxia Erectile dysfunction Type 2 diabetes mellitus Chronic kidney disease Anemia Nonischemic cardiomyopathy Idiopathic gout, right ankle and foot Mixed hyperlipidemia Nonrheumatic aortic (valve) stenosis DDD (degenerative disc disease), lumbosacral HTN (hypertension) Surgical History History of cardiac pacemaker Hx of arthroscopy of left knee Hx of tooth extraction Hx of heart surgery (2017) Aortic valve replacement and aneurysm repair Family History Mother CAD (coronary artery disease) Brother Cancer Other Hypertension Denies family history of Diabetes Clotting disorder Dementia Chronic kidney disease (CKD) Suicide Anesthesia complication Bleeding disorder Lung disease Stroke Social History Smoking and tobacco/nicotine status: never used tobacco/nicotine Second hand smoke exposure: No Alcohol intake: current Alcohol intake frequency: holidays/special occasions only Substance/Drug Use: never Adopted: No Caregiver/support person: Yes (spouse) Lives independently: Yes Household members: spouse and children Housing: House Marital status: Number of children: 3 Number of grandchildren: 3 Highest education level completed: 6th Grade service: No Current occupational status: disabled Pets and animals: Yes Current gender identity: Male Special pola needs: No Agree to transfusion: Yes Vitals/I&O/Wt Last Vital Signs Pulse 70 09/17/23 20:40 Resp 18 09/17/23 20:40 BP 151/110 09/17/23 20:40 Pulse Ox 99 09/17/23 20:40 O2 Del Method Nasal Cannula 09/17/23 18:00 O2 Flow Rate 4 09/17/23 18:00 09/17/23 09/17/23 09/17/23 06:59 14:59 22:59 Intake Total 500 / 500 Balance 500 / 500 Weight last 48 hrs Weight 118.705 kg Weight 113.398 kg Physical Exam Const: COMMON NORMALS: no acute distress and patient oriented x3 Eye: COMMON NORMALS: Equal, round and reactive pupils present and EOMs intact bilaterally Neck/C-Spine: COMMON NORMALS: no JVD Lymph: LYMPHATIC: no lymphadenopathy noted Resp: COMMON NORMALS: normal respiratory effort, No retractions, No use of accessory muscles and clear to auscultation bilaterally AUSCULTATION: crackles Cardio: COMMON NORMALS: no JVD, regular rate, regular rhythm, S1 normal heart sound present and S2 normal heart sound present RATE: regular rate RHYTHM: regular rhythm HEART SOUNDS: S1 normal heart sound present and S2 normal heart sound present GI: COMMON NORMALS: Normal to inspection, nondistended, normoactive bowel sounds present, Soft to palpation and non-tender : OTHER: Abdominal distention, fluid wave present, no guarding, no rebound, no rigidity, good bowel sounds in all 4 quadrants Extremity: NARRATIVE EXTREMITY EXAM: 2+ pitting edema Neuro: COMMON NORMALS: patient oriented x3, CN's II-XII intact bilaterally, moves all extremities and no focal motor deficits Psych: COMMON NORMALS: mental status grossly normal Data 09/17/23 15:02 09/17/23 15:02 A&P Assessment and plan (1) HTN (hypertension): Qualifiers: Hypertension type: essential hypertension Qualified Code(s): I10 - Essential (primary) hypertension (2) Acute on chronic heart failure: (3) Systolic congestive heart failure with reduced left ventricular function, NYHA class 4: (4) Nonrheumatic aortic (valve) stenosis: (5) Ascending aortic aneurysm: (6) Type 2 diabetes mellitus: (7) Acute on chronic congestive heart failure: Qualifiers: Heart failure type: unspecified Qualified Code(s): I50.9 - Heart failure, unspecified (8) Atrial fibrillation: (9) Acute hypoxemic respiratory failure: Plan Acute hypoxic respiratory failure -Secondary to systolic diastolic CHF exacerbation Plan ? Patient does not want Salazar catheter in place, ? Urine output monitoring, fluid restrictions at 1000 cc, ? Lasix 40 IV twice daily, ? Monitor potassium, monitor creatinine, monitor magnesium ?cardiac echo -Full code, ? Lovenox for DVT prophylaxis Congestive hepatopathy -Has transaminitis -Continue to monitor ARUNA on CKD ? Likely secondary to cardiorenal syndrome ? Monitor urine output ? Monitor creatinine Atrial fibrillation, ? Continue Eliquis NSTEMI ? Serial EKGs, serial troponins, telemetry monitoring History of ischemic cardiomyopathy, CHF as above History of Q fever, cat scratch fever, continue p.o. antibiotics History of aortic aneurysm, followed by Dr. Scott as outpatient Attestations Medical Necessity Statement*: Patient requires hospitalization, inpatient, greater than 2 midnights, for acute hypoxic respiratory failure, systolic diastolic CHF, cardiorenal syndrome, congestive hepatopathy Diagnoses Essential hypertension I10 Hypertension type: essential hypertension Acute on chronic heart failure I50.9 Systolic congestive heart failure with reduced left ventricular function, NYHA class 4 I50.20 Nonrheumatic aortic (valve) stenosis I35.0 Ascending aortic aneurysm I71.21 Type 2 diabetes mellitus E11.9 Acute on chronic congestive heart failure I50.9 Heart failure type: unspecified Atrial fibrillation I48.91 Acute hypoxemic respiratory failure J96.01
[2023-09-17 21:21] LABS: Glucose Point of Care 162 mg/dL (70-110)
[2023-09-17] MEDS: FUROsemide 10 mg/mL SDV 4mL 40 MG IVP (21:27)
[2023-09-17] MEDS: pantoprazole 40 mg SDV IVP (21:27)
[2023-09-17] MEDS: enoxaparin 40 mg/0.4 mL Syringe SUBCUT (21:27)
[2023-09-17 21:33] LABS: Troponin 5 6HR 79.43 ng/L (0-15)
[2023-09-17 21:34] LABS: Troponin 5 6HR Delta -2.57 ng/L (0-12)
--- NOTE | 2023-09-17 22:24 | ECG_ITS ---
[facility] Test Date: 2023-09-17 Pat Name: Pawan Marcum Department: Room: 112 Gender: Male Stock Counter: : 1955 Requested By: Chalino Billy Order Number: [id number] Spence MD: Sagar Newell M.D. Measurements Intervals [place] Rate: 70 P: 0 [place]: 0 QRS: -78 QRSD: 190 T: 106 QT: 464 QTc: 501 Interpretive Statements ELECTRONIC VENTRICULAR PACEMAKER Compared to ECG 09/17/2023 18:33:46 No significant changes Electronically Signed On 09-18-2023 12:28:02 SURGICAL ONCOLOGIST by Sagar Newell M.D. [id number]
[2023-09-17 22:28] LABS: HIV 1 & 2 Antibody Non-Reactive (Non-Reactiv); HIV 1 & 2 Antigen Non-Reactive (Non-Reactiv); Hepatitis A Antibody IgM Non-Reactive (Nonreactive); Hepatitis B Core IgM Non-Reactive (Nonreactive); Hepatitis B Surface Antigen Non-Reactive (Nonreactive); Hepatitis C Virus Antibody Non-Reactive (Nonreactive)
[2023-09-17 22:29] LABS: Adenovirus Not Detected (NOT DETECT); Chlamydia Pneumoniae Not Detected (NOT DETECT); Coronavirus 229E,HKU1,NL63,OC4 Not Detected (NOT DETECT); Human Metapneumovirus Not Detected (NOT DETECT); Human Rhinovirus/Enterovirus Not Detected (NOT DETECT); Influenza A Not Detected (NOT DETECT); Influenza A H1 Not Detected (NOT DETECT); Influenza A H1-2009 Not Detected (NOT DETECT); Influenza A H3 Not Detected (NOT DETECT); Influenza B Not Detected (NOT DETECT); Mycoplasma Pneumoniae Not Detected (NOT DETECT); Parainfluenza Virus Type 1 Not Detected (NOT DETECT); Parainfluenza Virus Type 2 Not Detected (NOT DETECT); Parainfluenza Virus Type 3 Not Detected (NOT DETECT); Parainfluenza Virus Type 4 Not Detected (NOT DETECT); Respiratory Syncytial Virus A Not Detected (NOT DETECT); Respiratory Syncytial Virus B Not Detected (NOT DETECT); SARS-COV-2 Not Detected (NOT DETECT)
[2023-09-18] VITALS (10 sets, daily range): BP systolic 117–163; BP diastolic 55–98; PULSE 69–72; RESP 16–23; TEMP 36.2–37; O2SAT 91–100
[2023-09-18 04:13] LABS: Basophils % 0.6 %; Eosinophils # 0.1 10^3/uL (0.0-0.8); Lymphocytes # 1.1 10^3/uL (0.8-4.8); Lymphocytes % 19.8 %; Mean Corpuscular HGB Conc 30.3 g/dL (30-55); Mean Corpuscular Hemoglobin 31.9 pg (27-33); Mean Corpuscular Volume 105.3 fl (82-101); Mean Platelet Volume 12.4 fL (7.4-10.4); Monocytes # 0.5 10^3/uL (0.2-0.9); Monocytes % 9.2 %; Neutrophils % 67.8 %; Nucleated Red Blood Cells % 0.4 %; Platelet Count 130 10^3/cmm (157-399); Red Blood Count 3.42 10^6/uL (3.85-5.65); White Blood Count 5.45 10^3/uL (3.29-11.43)
[2023-09-18 04:26] LABS: Estmated Average Glucose 137; Hemoglobin A1C 6.4 % (4.0-6.0)
[2023-09-18 04:28] LABS: Lactic Sepsis W/Reflex 0.9 mmol/L (0.5-2.2)
[2023-09-18 04:38] LABS: Alanine Aminotransferase 304 U/L (0-41); Albumin Level 3.6 g/dL (3.5-5.2); Alkaline Phosphatase 38 U/L (40-130); Aspartate Amino Transferase 395 U/L (0-40); Blood Urea Nitrogen 49 mg/dL (8-23); Calcium 8.5 mg/dL (8.5-10.5); Carbon Dioxide 25 mmol/L (22-29); Chloride 103 mmol/L (98-107); Globulin 3.8 g/dL (1.3-4.6); Glomerular Filtration Rate 28.6 mL/min (90-130); Glucose 96 mg/dL (65-115); Magnesium 1.9 mg/dL (1.7-2.3); Osmolality Calculated 299 mOsm/kg (285-295); Phosphorus 3.8 mg/dL (2.5-4.5); Sodium 138 mmol/L (136-145); Thyroid Stimulating Hormone 1.49 uIU/mL (0.27-4.20); Total Bilirubin 1.3 mg/dL (0.15-1.2); Total Protein 7.4 g/dL (6.6-8.7)
[2023-09-18 04:40] LABS: Anion Gap 14.3 (5-19); Potassium 4.3 mmol/L (3.5-5.1)
[2023-09-18 04:51] LABS: NT Pro B Type Natriuretic Pept 8138 pg/mL (0-125); Procalcitonin 0.31 ng/mL (0-0.5)
[2023-09-18 05:02] LABS: Chol HDL Ratio 6.38 mg/dL (1.0-5.00); Cholesterol 83 mg/dL (0-200); HDL Cholesterol 13 mg/dL (60-100); LDL Cholesterol Calculated 46 mg/dL (50-129); LDL HDL Ratio 3.54 RATIO (0.00-3.22); Triglycerides 122 mg/dL (0-150)
[2023-09-18 06:20] LABS: Glucose Point of Care 88 mg/dL (70-110)
[2023-09-18] MEDS: sacubitril/valsartan 24-26 mg Tablet 1 EACH PO ×2 (08:38→17:32)
[2023-09-18] MEDS: pregabalin 150 mg Capsule 300 MG PO ×2 (08:38→17:32)
[2023-09-18] MEDS: atorvastatin 40 mg Tablet PO (08:38)
[2023-09-18] MEDS: aspirin 81 mg EC Tablet PO (08:38)
[2023-09-18] MEDS: apixaban 5 mg Tablet PO ×2 (08:38→20:25)
[2023-09-18] MEDS: FUROsemide 10 mg/mL SDV 4mL 40 MG IVP ×2 (08:39→20:26)
[2023-09-18] MEDS: fenofibrate 145 mg Tablet PO (09:55)
--- NOTE | 2023-09-18 10:03 | PC.CHAP ---
Pastoral Care Encounter/Spiritual Assessment Type of Contact [] Declined replanter visit [] Patient/Family/Request visit [] Outpatient visit [] Follow-up visit [] Physician referral [] Code/Alert [x] Routine visit [] Staff referral [] Actively dying [] Patient sleeping [] Family support [] [] Out of room [] Palliative care [] [] Receiving care in room [] Pre-surgical visit [] Trauma [] Long length of stay [] ICU visit [] Other: Relational/Emotional Strength [x] Patient feels connected with others/family/visitors/staff [] Distress [] Loneliness/isolation [] Abandonment Spirituality of Patient x] Person of Karla [] Attends Islam of their Karla [x] Believes in Prayer [] Reads Bible or Bahai materials [] There are Spiritual issues to be addressed Manager Educational Interventions [x] Prayer [x] Active listening [] Non-anxious presence [x] Spiritual/emotional support [] Crisis/trauma care [] Spiritual counseling [] Bereavement support [] Provided bereavement packet [] Provided Bible/devotional materials [] Provided toy/stuffed animal, coloring book to patient or family member [] Provided Communion [] Anointing/[place] [] Salvation [x] Completed spiritual assessment [] Other: Impact on Illness or Injury [] Angry [] Fearful [] Anxious [] Often cries [] Exhaustion [] Unable to work [] Unable to attend bahai [] Unable to walk/stand [] Unable to read [] Unable to drive [] Unable to eat/drink [] Unable to sleep [] Unable to be with family [] Patient intubated [] Other: Summary Time spent with patient 5 min
[2023-09-18 10:29] LABS: Glucose Point of Care 157 mg/dL (70-110)
--- NOTE | 2023-09-18 12:00 | PC.NURSE ---
notified that we need pt's home med Rifabutin since pharmacy don't carry it and it is a nonformulary as ordered.
[2023-09-18] MEDS: flu vacc pf 2023-24 (6 mos+) 60 MCG IM (12:15)
--- NOTE | 2023-09-18 12:50 | P.PN_ITS ---
Subjective 2 Subjective: seen today no acute events overnight urine output 2L Vitals/I&O/Wt Last Vital Signs Temp 97.1 F L 09/18/23 11:50 Pulse 70 09/18/23 11:50 Resp 17 09/18/23 11:50 BP 126/98 09/18/23 11:50 Pulse Ox 96 09/18/23 11:50 O2 Del Method Nasal Cannula 09/18/23 11:50 O2 Flow Rate 2 09/18/23 10:18 09/17/23 09/18/23 09/18/23 22:59 06:59 14:59 Intake Total 900 / 900 220 / 1120 240 / 240 Output Total 575 / 575 575 / 1150 875 / 875 Balance 325 / 325 -355 / -30 -635 / -635 Weight last 48 hrs Weight 116.845 kg Weight 118.705 kg Weight 113.398 kg Physical Exam 2 Const: COMMON NORMALS: no acute distress and patient oriented x3 Eye: COMMON NORMALS: Equal, round and reactive pupils present and EOMs intact bilaterally PUPIL: Yes Equal, round and reactive pupils present Neck/C-Spine: COMMON NORMALS: no JVD Lymph: LYMPHATIC: no lymphadenopathy noted Resp: COMMON NORMALS: normal respiratory effort, No retractions, No use of accessory muscles and clear to auscultation bilaterally AUSCULTATION: clear to auscultation bilaterally and crackles Cardio: COMMON NORMALS: no JVD, regular rate, regular rhythm, S1 normal heart sound present and S2 normal heart sound present RATE: regular rate RHYTHM: regular rhythm HEART SOUNDS: S1 normal heart sound present and S2 normal heart sound present GI: COMMON NORMALS: Normal to inspection, nondistended, normoactive bowel sounds present, Soft to palpation and non-tender PALPATION: Yes Soft to palpation : OTHER: Abdominal distention, fluid wave present, no guarding, no rebound, no rigidity, good bowel sounds in all 4 quadrants Extremity: NARRATIVE EXTREMITY EXAM: 2+ pitting edema Neuro: COMMON NORMALS: patient oriented x3, CN's II-XII intact bilaterally, moves all extremities and no focal motor deficits Psych: COMMON NORMALS: mental status grossly normal Data 09/18/23 04:01 09/18/23 04:01 A&P Assessment and plan (1) HTN (hypertension): Qualifiers: Hypertension type: essential hypertension Qualified Code(s): I10 - Essential (primary) hypertension (2) Acute on chronic heart failure: (3) Systolic congestive heart failure with reduced left ventricular function, NYHA class 4: (4) Nonrheumatic aortic (valve) stenosis: (5) Ascending aortic aneurysm: (6) Type 2 diabetes mellitus: (7) Acute on chronic congestive heart failure: Qualifiers: Heart failure type: unspecified Qualified Code(s): I50.9 - Heart failure, unspecified (8) Atrial fibrillation: (9) Acute hypoxemic respiratory failure: Plan Acute hypoxic respiratory failure -Secondary to systolic diastolic CHF exacerbation Plan ? Patient does not want Salazar catheter in place, ? Urine output monitoring, fluid restrictions at 1000 cc, ? Lasix 40 IV twice daily, _ patient on high risk medication such as lasix and needs BMP monitored BID to look for electrolyte abnormalities ? Monitor potassium, monitor creatinine, monitor magnesium ?cardiac echo - Continue IV diuresis -Full code, ? Lovenox for DVT prophylaxis Congestive hepatopathy -Has transaminitis -Continue to monitor ARUNA on CKD ? Likely secondary to cardiorenal syndrome ? Monitor urine output ? Monitor creatinine - 2.8 on admission, 2.3 today. Atrial fibrillation, ? Continue Eliquis NSTEMI ? Serial EKGs, serial troponins, telemetry monitoring History of ischemic cardiomyopathy, CHF as above History of Q fever, cat scratch fever, continue p.o. antibiotics History of aortic aneurysm, followed by Dr. Scott as outpatient Full Code Attestations 2 Medical Necessity Statement*: Patient requires hospitalization, inpatient, greater than 2 midnights, for acute hypoxic respiratory failure, systolic diastolic CHF, cardiorenal syndrome, congestive hepatopathy Diagnoses Essential hypertension I10 Hypertension type: essential hypertension Acute on chronic heart failure I50.9 Systolic congestive heart failure with reduced left ventricular function, NYHA class 4 I50.20 Nonrheumatic aortic (valve) stenosis I35.0 Ascending aortic aneurysm I71.21 Type 2 diabetes mellitus E11.9 Acute on chronic congestive heart failure I50.9 Heart failure type: unspecified Atrial fibrillation I48.91 Acute hypoxemic respiratory failure J96.01
[2023-09-18] MEDS: insulin lispro 100 unit/1 mL SUBCUT (12:54)
--- NOTE | 2023-09-18 14:52 | PC.OT ---
OT eval attempted with pt declining on 09/18/23 at 14:47. Will attempt at later time.
--- NOTE | 2023-09-18 15:14 | PC.NURSE ---
Informed SO at bedside to bring his RIFABUTIN from home due to it as nonformulary med. She said the can bring this medication today.
--- NOTE | 2023-09-18 15:41 | PC.NURSE ---
pt won't michael his tele monitor on even with SO at bedside. educated pt and SO. pulse o2 is still attached.
[2023-09-18 16:58] LABS: Glucose Point of Care 131 mg/dL (70-110)
--- NOTE | 2023-09-18 17:30 | P.CONIM_ITS ---
Providers/Reason For Consult 2 Consulting Physician/Specialty*: Cardiovascular medicine Reason for Consult*: Change in ejection fraction Requesting Physician: Hospitalist Attending Physician: Merari Ugalde MD Primary Care Provider: Dinaa Butcher MD History of Present Illness History of Present Illness Pawan Marcum is a 68 year old male who is significantly chronically ill. He is a patient seen by Dr. Scott in the clinic typically. I have seen him on a couple of occasions in the past year when Dr. Scott was not available. He has a long list of medical problems that are delineated below. He was admitted last evening after apparently being unwell for the last 7 to 10 days. He visited a primary care clinic and received antibiotics and steroids for what was presumed an upper respiratory infection. He was complaining of cough, shortness of breath, what sounds like orthopnea and lower extremity edema as well as abdominal distention. Upon his arrival to the emergency room he was hypoxic and was thought to be in congestive heart failure. He was admitted and another echo was obtained. On this occasion the echo was read as an ejection fraction of 30 to 35%. A year ago his ejection fraction was read as 35 to 40%. I was contacted because of the perceived change in his ejection fraction. This patient has a long list of chronic medical and cardiac problems. He is chronically in respiratory failure with hypoxia on oxygen due to multiple underlying problems. He has a history of atrial fibrillation. He has a pacemaker which is a dual-chamber pacemaker. He is a diabetic with chronic kidney disease and what is termed a nonischemic cardiomyopathy. He has had episodes of congestive heart failure. He has dyslipidemia and systemic hypertension. There is a history of aortic stenosis. He had an aortic valve replaced with what I believe is a bioprosthetic valve. At the same time he had an aortic aneurysm repair. I do not know whether it was the ascending aorta that was repaired or whether it was the aortic root. There is some confusion in the notes as to where the graft is exactly. There is also some confusion as to whether or not there is a need for consideration of further intervention. His CTs and echoes have suggested that his aortic root is 5.7 cm in diameter and that the a ascending aorta is 4.6 cm[address] He has seen [address] Pineda here who has evaluated this. He has also been seen in [place] and according to the notes, which are somewhat confusing, he was sent back to [place] after the aortic root was found to be 5.7 cm. The surgeon who operated on him up there apparently saw him and said that no further intervention was necessary. I cannot confirm this because we do not not have any of those notes. He was found to be anemic at some point and there was a concern for multiple myeloma. Ultimately he had a bone marrow aspirate. 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 There was no evidence of a neoplastic process on the bone marrow aspirate. He is being diuresed here with intravenous Lasix. The metolazone is being held. At home he is on Eliquis, statin, Lasix, fib rate, metolazone and Entresto. His last CTA of his chest was a month ago which revealed the aortic root to be 5.7 cm and the ascending aortic to be 4.6 cm. He had a sestamibi examination in August 2022 which showed global hypokinesis and an ejection fraction of about 50%. There was a very small circumflex distribution perfusion defect. He is not known to have coronary artery disease and certainly did not have any intervention previously and no bypass surgery at the time of his open heart procedure. His troponins upon this admission are 82, 78 and 79. His BNP is greater than 10,000. His transaminases are elevated. His hemoglobin A1c is 6.4. In July his BUN and creatinine were 39 and 1.7. Now they are 49 and 2.3. He states that he feels better since coming in last evening. He feels like he is getting rid of some fluid. Review of Systems 2 Narrative: Review of systems is unavailable. The patient has been somewhat confused and is not capable of providing a cogent review of systems Medications/Allergies Home Medications Medication Instructions Recorded Confirmed Last Taken Type diabetic shoes with inserts #1 ea 02/28/21 09/17/23 08/12/22 Rx Blood pressure cuff and machine #1 ea 06/27/22 09/17/23 08/12/22 Rx o2 at 3L per nasal cannula #1 ea 08/11/22 09/17/23 08/12/22 Rx nitroglycerin 0.3 mg sublingual 0.3 mg sublingual Q5M PRN chest 10/08/22 09/17/23 Unknown Rx tablet pain #30 tabs Diabetic shoes with inserts #1 ea 04/24/23 09/17/23 Unknown Rx indomethacin 75 mg 75 mg PO BID #30 caps 08/11/23 09/17/23 09/17/23 Rx capsule,extended release pregabalin 300 mg capsule 300 mg PO BID #60 caps 08/13/23 09/17/23 09/17/23 Rx tizanidine 4 mg tablet 4 mg PO Q6H PRN muscle spasticity 09/03/23 09/17/23 Unknown Rx #20 tabs acetaminophen 300 mg-codeine 60 mg 1 tab PO Q8H PRN pain #90 tabs 09/16/23 09/17/23 Unknown Rx tablet apixaban 5 mg tablet (Eliquis) 5 mg PO BID 09/17/23 09/17/23 09/17/23 History aspirin 81 mg tablet,delayed 81 mg PO DAILY 09/17/23 09/17/23 09/17/23 History release atorvastatin 40 mg tablet 40 mg PO DAILY 09/17/23 09/17/23 09/17/23 History dulaglutide 1.5 mg/0.5 mL 1.5 mg SUBCUT DAILY 09/17/23 09/17/23 09/15/23 History subcutaneous pen injector (Trulicity) famotidine 40 mg tablet 40 mg PO BID 09/17/23 09/17/23 09/17/23 History fenofibrate 160 mg tablet 160 mg PO DAILY 09/17/23 09/17/23 09/17/23 History furosemide 20 mg tablet 20 mg PO DAILY EDEMA 09/17/23 09/17/23 09/17/23 History metformin 850 mg tablet 850 mg PO DAILY 09/17/23 09/17/23 Unknown History metolazone 2.5 mg tablet 2.5 mg PO DAILY PRN Edema 09/17/23 09/17/23 Unknown History rifabutin 150 mg capsule 300 mg PO DAILY 09/17/23 09/17/23 09/17/23 History sacubitril 24 mg-valsartan 26 mg 1 tab PO BID 09/17/23 09/17/23 09/17/23 History tablet (Entresto) Allergies Allergy/AdvReac Type Severity Reaction Status Date / Time lisinopril AdvReac Mild Coughing Verified 09/17/23 14:42 Current Medications Generic Name Dose Route Start Last Admin Trade Name Freq PRN Reason Stop Dose Admin Apixaban 5 mg 09/18/23 09:00 09/18/23 08:38 Apixaban 5 Mg Tablet PO 5 mg BID@0900,2100 JOSÉ Administration Aspirin 81 mg 09/18/23 09:00 09/18/23 08:38 Aspirin 81 Mg Ec Tablet PO 81 mg DAILY JOSÉ Administration Atorvastatin Calcium 40 mg 09/18/23 09:00 09/18/23 08:38 Atorvastatin 40 Mg Tablet PO 40 mg DAILY JOSÉ Administration Fenofibrate 145 mg 09/18/23 09:00 09/18/23 09:55 Fenofibrate 145 Mg Tablet PO 145 mg DAILY JOSÉ Administration Furosemide 40 mg 09/17/23 21:03 09/18/23 08:39 Furosemide 10 Mg/Ml Sdv 4ml IVP 40 mg Q12H JOSÉ Administration Insulin Human Lispro 0 unit 09/18/23 08:00 09/18/23 17:01 Insulin Lispro 100 Unit/1 Ml SUBCUT Not Given TIDWM [facility] Protocol Non-Formulary Medication 300 mg 09/18/23 09:00 09/18/23 08:39 Rifabutin PO Not Given DAILY [facility] Pantoprazole Sodium 40 mg 09/17/23 21:03 09/17/23 21:27 Pantoprazole 40 Mg Sdv IVP 40 mg Q24H JOSÉ Administration Pregabalin 300 mg 09/18/23 09:00 09/18/23 08:38 Pregabalin 150 Mg Capsule PO 300 mg BID JOSÉ Administration Sacubitril/Valsartan 1 each 09/18/23 09:00 09/18/23 08:38 Sacubitril/Valsartan 24-26 Mg Tablet PO 1 each BID JOSÉ Administration PFSH Acute 2 PFSH: Medical History (Updated 09/18/23 @ 17:47 by Hayes Peck MD) Pulmonary HTN Anticoagulation adequate with anticoagulant therapy Nonischemic cardiomyopathy Enrolled in chronic care management Atrial fibrillation Pneumonia Acute and chronic respiratory failure with hypoxia Erectile dysfunction Type 2 diabetes mellitus Chronic kidney disease Anemia Idiopathic gout, right ankle and foot Mixed hyperlipidemia Nonrheumatic aortic (valve) stenosis DDD (degenerative disc disease), lumbosacral HTN (hypertension) Surgical History (Updated 09/18/23 @ 17:40 by Hayes Peck MD) History of cardiac pacemaker Hx of arthroscopy of left knee Hx of tooth extraction Hx of heart surgery (2017) Aortic valve replacement and aneurysm repair Family History Mother CAD (coronary artery disease) Brother Cancer Other Hypertension Denies family history of Diabetes Clotting disorder Dementia Chronic kidney disease (CKD) Suicide Anesthesia complication Bleeding disorder Lung disease Stroke Social History Smoking and tobacco/nicotine status: never used tobacco/nicotine Second hand smoke exposure: No Alcohol intake: current Alcohol intake frequency: holidays/special occasions only Substance/Drug Use: never Adopted: No Caregiver/support person: Yes (spouse) Lives independently: Yes Household members: spouse and children Housing: House Marital status: Number of children: 3 Number of grandchildren: 3 Highest education level completed: 6th Grade service: No Current occupational status: disabled Pets and animals: Yes Current gender identity: Male Special pola needs: No Agree to transfusion: Yes Vitals/I&O/Wt Last Vital Signs Temp 98.0 F 09/18/23 16:00 Pulse 71 09/18/23 16:00 Resp 17 09/18/23 11:50 BP 144/89 09/18/23 16:00 Pulse Ox 96 09/18/23 16:00 O2 Del Method Nasal Cannula 09/18/23 16:00 O2 Flow Rate 2 09/18/23 10:18 09/18/23 09/18/23 09/18/23 06:59 14:59 22:59 Intake Total 220 / 1120 476 / 476 Output Total 575 / 1150 1375 / 1375 300 / 1675 Balance -355 / -30 -899 / -899 -300 / -1199 Weight last 48 hrs Weight 257 lb 9.6 oz Weight 261 lb 11.2 oz Weight 250 lb Physical Exam 2 Narrative: GENERAL: In general he has his head propped up and is mildly short of breath at rest. He is conversant. HEENT: Exam within normal limits. NECK: Supple without jugular vein distention. The carotid upstroke is normal without bruits. BACK: Exam normal. LUNGS: Clear. There are few moist basilar rales HEART: Regular rate and rhythm. ABDOMEN: Benign without organomegaly or tenderness. EXTREMITIES: 1+ edema NEUROLOGIC: Exam normal. SKIN: Unremarkable. Data 09/18/23 04:01 09/18/23 04:01 A&P Assessment and plan (1) HTN (hypertension): Qualifiers: Hypertension type: essential hypertension Qualified Code(s): I10 - Essential (primary) hypertension (2) History of cardiac pacemaker: (3) Systolic congestive heart failure with reduced left ventricular function, NYHA class 4: (4) Nonischemic cardiomyopathy: (5) Acute on chronic heart failure: (6) Ascending aortic aneurysm: (7) Congestive heart failure: (8) Atrial fibrillation: (9) Presence of permanent cardiac pacemaker: (10) Type 2 diabetes mellitus: (11) Obesity: (12) Chronic kidney disease: (13) Anemia: (14) Acute and chronic respiratory failure with hypoxia: (15) Hx of heart surgery: (16) Nonrheumatic aortic (valve) stenosis: (17) Anticoagulation adequate with anticoagulant therapy: (18) Pulmonary HTN: (19) Transaminitis: Plan As it pertains to the congestive heart failure, this man has known left ventricular dysfunction which is global in nature. I actually physically went back and looked at the entirety of both echos, the one from a year ago and the one from yesterday. I do not detect any significant difference in the ejection fraction or the left ventricular dysfunction. There may always be intra reader variation when reading echoes even when the same individual reads the echoes. In this patient, the echoes are particularly difficult because the images are not particularly good. The patient has paradoxical motion of the septum that is related to both previous cardiac surgery and a paced rhythm. His left ventricular dysfunction is probably multifactorial and could be related to previous aortic stenosis, nonischemic cardiomyopathy secondary to diabetes, hypertension or other illnesses. Finally chronic right ventricular pacing can cause left ventricular dysfunction. The bottom line is I do not think there is a significant deterioration of his left ventricular function from a year ago. He should be diuresed appropriately and placed back on his medication regimen. 1 must remember that the ejection fraction evaluation by echocardiography is a visual estimate. The estimate between these 2 echoes is actually negligible and well within the margin of error. Patients with this set of medical problems will often have periodic exacerbation of both systolic and diastolic heart failure. At this point his aortic root and ascending aortic arch dilatation should be followed with periodic scans. He is not a good candidate for further intervention surgically. I presume he is on Eliquis due to the atrial fibrillation. Diuresis should be entertained carefully because of his advancing renal insufficiency. Transaminitis is a congestive hepatopathy secondary to heart failure. He is not having unstable angina, non-ST segment elevation DC or any ischemia that is detectable. His last sestamibi examination was a year ago and was basically a low risk scan with a very small circumflex defect which may well have been an artifact. His elevated pulmonary pressures are multifactorial and related to his underlying left ventricular dysfunction primarily. Consult Attestations 2 Medical Necessity Statement: Admission required for congestive heart failure. and High Time for a total of 100 minutes, includes reviewing past or interval history, examining/interviewing patient, placing orders, counseling patient/family/other support, updating patient/family/other support, discussing plan of care with staff, communicating with other healthcare providers, documenting encounter and coordinating care Diagnoses Essential hypertension I10 Hypertension type: essential hypertension History of cardiac pacemaker Z95.0 Systolic congestive heart failure with reduced left ventricular function, NYHA class 4 I50.20 Nonischemic cardiomyopathy I42.8 Acute on chronic heart failure I50.9 Ascending aortic aneurysm I71.21 Congestive heart failure I50.9 Atrial fibrillation I48.91 Presence of permanent cardiac pacemaker Z95.0 Type 2 diabetes mellitus E11.9 Obesity E66.9 Chronic kidney disease N18.9 Anemia D64.9 Acute and chronic respiratory failure with hypoxia J96.21 Hx of heart surgery Z98.890 Nonrheumatic aortic (valve) stenosis I35.0 Anticoagulation adequate with anticoagulant therapy Z79.01 Pulmonary HTN I27.20 Transaminitis R74.01
[2023-09-18] MEDS: pantoprazole 40 mg SDV IVP (20:25)
[2023-09-18 20:55] LABS: Glucose Point of Care 135 mg/dL (70-110)
--- NOTE | 2023-09-18 21:03 | USCV_ITS ---
Pawan Marcum Age: 68 Gender: M : 1955 Exam Date: 09/18/2023 03:07 Ordering Phys: Josias aMtthews MD Technologist: CHANDRA [place] [facility] [place] SOB s/p bioprosthetic AVR 2015, s/p pacer October 2018 BP: 151 / 110 HR: 73 Rhythm: paced Atrial fibrillation Technical Quality: Adequate MEASUREMENTS (Male / Female) Normal Values 2D ECHO LV Diastolic Diameter PLAX 5.2 cm 4.2 - 5.9 / 3.9 - 5.3 cm LV Systolic Diameter PLAX 4.5 cm IVS Diastolic Thickness 2.3 cm 0.6 - 1.0 / 0.6 - 0.9 cm IVS Systolic Thickness 3.6 cm LVPW Diastolic Thickness 1.9 cm 0.6 - 1.0 / 0.6 - 0.9 cm LVPW Systolic Thickness 1.1 cm LVOT Diameter 2.2 cm LV Ejection Fraction 2D Teich 29.6 % LV Ejection Fraction MOD 2C 36.6 % LV Ejection Fraction 2C AL 36.7 % LA Diameter 4.9 cm LA Width 5.1 cm LA Height 6.8 cm RA Width 4.8 cm RA Height 7.3 cm Aorta at Sinotubular Diameter 5.5 cm IVC Diameter 2.8 cm M-MODE Aortic Annulus Diameter 3.7 cm LA Ao Ratio MM 1.3 MV E Point Septal Separation 1.7 cm DOPPLER AV Peak Velocity 262.0 cm/s LVOT Peak Velocity 49.0 cm/s AV Area Cont Eq vti 0.6 cm squared AV Area Cont Eq pk 0.7 cm squared MV Peak Velocity 135.0 cm/s MV Area PHT 4.1 cm squared MV E' Velocity 58.0 cm/s Mitral E to MV E' Ratio 16.3 Mitral E to LV E' Lateral Ratio 16.5 Mitral E to LV E' Septal Ratio 16.0 TR Peak Velocity 328.3 cm/s TR Peak Gradient 43.1 mmHg TV Peak E Velocity 71.0 cm/s Right Atrial Pressure 10.0 mmHg Pulmonary Artery Systolic Pressu 53.1 mmHg PV Peak Velocity 103.0 cm/s RV Acceleration Time 0.1 s RV Ejection Time 0.3 s RV AcT/ET 0.3 FINDINGS Left Ventricle Left ventricle is normal size. LV systolic function is moderate to severely reduced with EF of 30 to 35%. Right Ventricle Grossly mildly hypokinetic. Pacemaker lead is seen Right Atrium Dilated. Pacemaker lead is seen Left Atrium Dilated Mitral Valve Grossly normal. Mild mitral regurgitation Aortic Valve Bioprosthetic aortic valve is seen. It is thickened. Appears moderate to severely stenotic based on doppler data/ DVI but doppler signals are inadequate (specifically LVOT DVI). Mean gradient across aortic valve is 13.3 mmHg. DVI is abnormal and is 0.15. Tricuspid Valve Moderate tricuspid regurgitation. RVPS is 55-60mmHg. This is consistent with moderate pulmonary hypertension Pulmonic Valve Mild pulmonic regurgitation. Pericardium Normal Aorta Ascending aorta is severely dilated with diameter of 5.5cm. 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 LV systolic function is moderate to severely reduced with EF of 30 to 35%. Grossly mildly hypokinetic. Left atrial dilation Right atrial dilation Mild mitral regurgitation Bioprosthetic aortic valve is thickened. DVI is abnormal and is 0.15. However Doppler signal is inadequate. Recommend further evaulation. Mean gradient across aortic valve of 13.3mmHg. 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 IVC is dilated Compared to prior echocardiogram from 2022, LV systolic function appears to have decreased slightly, DVI of aortic valve is abnormal and ascending aortic dilation has worsened and diameter is 5.5cm now Sagar Newell MD (Electronically Signed) Final Date: 18 September 2023 14:36 S
[2023-09-19] VITALS (7 sets, daily range): BP systolic 99–131; BP diastolic 70–94; PULSE 70–72; RESP 14–21; TEMP 36.3–36.8; O2SAT 92–97
[2023-09-19 04:54] LABS: Basophils % 0.6 %; Eosinophils # 0.1 10^3/uL (0.0-0.8); Eosinophils % 2.8 %; Hematocrit 36.9 % (37-53); Lymphocytes # 0.9 10^3/uL (0.8-4.8); Lymphocytes % 17.2 %; Mean Corpuscular HGB Conc 30.9 g/dL (30-55); Mean Corpuscular Hemoglobin 31.6 pg (27-33); Mean Corpuscular Volume 102.2 fl (82-101); Mean Platelet Volume 11.9 fL (7.4-10.4); Monocytes # 0.6 10^3/uL (0.2-0.9); Monocytes % 12.2 %; Neutrophils # 3.39 10^3/uL (1.8-7.7); Neutrophils % 66.8 %; Nucleated Red Blood Cells % 0 %; Platelet Count 141 10^3/cmm (157-399); Red Blood Count 3.61 10^6/uL (3.85-5.65); Red Cell Distribution Width 14.7 % (12.1-15.1); White Blood Count 5.07 10^3/uL (3.29-11.43)
[2023-09-19 05:12] LABS: Alanine Aminotransferase 341 U/L (0-41); Albumin Level 3.3 g/dL (3.5-5.2); Alkaline Phosphatase 36 U/L (40-130); Anion Gap 12.6 (5-19); Aspartate Amino Transferase 344 U/L (0-40); Blood Urea Nitrogen 41 mg/dL (8-23); Calcium 8.3 mg/dL (8.5-10.5); Carbon Dioxide 30 mmol/L (22-29); Chloride 99 mmol/L (98-107); Globulin 3.9 g/dL (1.3-4.6); Glomerular Filtration Rate 28.6 mL/min (90-130); Glucose 97 mg/dL (65-115); Magnesium 1.8 mg/dL (1.7-2.3); Osmolality Calculated 296 mOsm/kg (285-295); Phosphorus 3.1 mg/dL (2.5-4.5); Potassium 3.6 mmol/L (3.5-5.1); Sodium 138 mmol/L (136-145); Total Bilirubin 1.3 mg/dL (0.15-1.2); Total Protein 7.2 g/dL (6.6-8.7)
[2023-09-19 06:34] LABS: Glucose Point of Care 104 mg/dL (70-110)
--- NOTE | 2023-09-19 08:40 | P.PN_ITS ---
Subjective 2 Subjective: Pawan is confused this morning. He has urinated all over himself. He has pulled his IV out 3 times overnight. He is trying to get out of bed. The bed alarm goes off multiple times. He is having some nosebleeds. Vitals/I&O/Wt Last Vital Signs Temp 98.2 F 09/19/23 07:19 Pulse 70 09/19/23 07:19 Resp 16 09/19/23 07:19 BP 115/84 09/19/23 07:19 Pulse Ox 92 09/19/23 07:19 O2 Del Method Nasal Cannula 09/19/23 07:19 O2 Flow Rate 2 09/19/23 04:00 09/18/23 09/19/23 09/19/23 22:59 06:59 14:59 Intake Total 600 / 1076 Output Total 1500 / 2875 1550 / 4425 Balance -900 / -1799 -1550 / -3349 Weight last 48 hrs Weight 250 lb Weight 257 lb 9.6 oz Weight 261 lb 11.2 oz Weight 250 lb Physical Exam 2 Narrative: GENERAL: In general he is confused and agitated. HEENT: Exam within normal limits. NECK: Supple without jugular vein distention. The carotid upstroke is normal without bruits. BACK: Exam normal. LUNGS: Clear. HEART: Irregular rate and rhythm ABDOMEN: Benign without organomegaly or tenderness. EXTREMITIES: No edema. NEUROLOGIC: Exam reveals confusion and disorientation.. SKIN: Unremarkable. Data 09/19/23 04:00 09/19/23 04:00 A&P Assessment and plan (1) HTN (hypertension): Qualifiers: Hypertension type: essential hypertension Qualified Code(s): I10 - Essential (primary) hypertension (2) Hx of heart surgery: (3) Nonrheumatic aortic (valve) stenosis: (4) History of cardiac pacemaker: (5) Nonischemic cardiomyopathy: (6) Systolic congestive heart failure with reduced left ventricular function, NYHA class 4: (7) Acute on chronic heart failure: (8) Congestive heart failure: (9) Ascending aortic aneurysm: (10) Atrial fibrillation: (11) Presence of permanent cardiac pacemaker: (12) Acute on chronic congestive heart failure: Qualifiers: Heart failure type: unspecified Qualified Code(s): I50.9 - Heart failure, unspecified (13) Anticoagulation adequate with anticoagulant therapy: (14) Pulmonary HTN: (15) Diabetic foot: (16) Type 2 diabetes mellitus: (17) Obesity: (18) Chronic kidney disease: (19) Transaminitis: (20) Anemia: (21) Acute and chronic respiratory failure with hypoxia: (22) Epistaxis: (23) Confusion: Plan Continue diuresis. We will have to replace the IV today. He is diuresing adequately when the IV is in. -3164 mL. Hold Eliquis due to nosebleeds. Attestations 2 Medical Necessity Statement*: Continued hospitalization for management of multiple medical problems and High Time for a total of 50 minutes, includes reviewing past or interval history, examining/interviewing patient, placing orders, counseling patient/family/other support, updating patient/family/other support, discussing plan of care with staff and documenting encounter Diagnoses Essential hypertension I10 Hypertension type: essential hypertension Hx of heart surgery Z98.890 Nonrheumatic aortic (valve) stenosis I35.0 History of cardiac pacemaker Z95.0 Nonischemic cardiomyopathy I42.8 Systolic congestive heart failure with reduced left ventricular function, NYHA class 4 I50.20 Acute on chronic heart failure I50.9 Congestive heart failure I50.9 Ascending aortic aneurysm I71.21 Atrial fibrillation I48.91 Presence of permanent cardiac pacemaker Z95.0 Acute on chronic congestive heart failure I50.9 Heart failure type: unspecified Anticoagulation adequate with anticoagulant therapy Z79.01 Pulmonary HTN I27.20 Diabetic foot E11.8 Type 2 diabetes mellitus E11.9 Obesity E66.9 Chronic kidney disease N18.9 Transaminitis R74.01 Anemia D64.9 Acute and chronic respiratory failure with hypoxia J96.21 Epistaxis R04.0 Confusion R41.0
[2023-09-19] MEDS: pregabalin 150 mg Capsule 300 MG PO ×2 (09:01→17:22)
[2023-09-19] MEDS: atorvastatin 40 mg Tablet PO (09:02)
[2023-09-19] MEDS: fenofibrate 145 mg Tablet PO (09:02)
[2023-09-19] MEDS: sacubitril/valsartan 24-26 mg Tablet 1 EACH PO ×2 (09:02→17:22)
[2023-09-19] MEDS: aspirin 81 mg EC Tablet PO (09:02)
[2023-09-19] MEDS: FUROsemide 10 mg/mL SDV 4mL 40 MG IVP ×2 (09:30→20:23)
[2023-09-19 11:41] LABS: Glucose Point of Care 134 mg/dL (70-110)
[2023-09-19 12:50] LABS: Glucose Point of Care 122 mg/dL (70-110)
[2023-09-19 13:08] LABS: ABG PCO2 53.1 mmHg (35-45); ABG PH Result 7.39 (7.35-7.45); Base Excess ABG 6.2 mmol/L (-2.0-2.0); Blood Gas Allen Test Pos; Blood Gas Operator Identificat MONRO; Blood Gas Sample Site Radial, right; Blood Gas Sample Type Arterial; Carboxyhemoglobin 1.6 %THgb (0.4-20.1); HCO3 ABG 32.4 mmol/L (22-26); HGB O2 Sat 91.4 % (95-100); Ionized Calcium Level - ABG 1.2 mmol/L (1.1-1.4); Methemoglobin 0.4 % (0.4-1.5); Oxygen Device NC; Oxygen Saturation ABG 93.3; PO2 ABG 69.8 mmHg (80.0-100.0); PO2 FiO2 Ratio Arterial Blood 0; Potassium Level - ABG 3.9 mmol/L (3.5-5.0); Total Hemoglobin 12.4 g/dL (14-18)
--- NOTE | 2023-09-19 13:19 | CTR_ITS ---
PROCEDURE INFORMATION: Exam: CT Head Without Contrast Exam date and time: 09/19/2023 2:17 PM Age: 68 years old Clinical indication: Altered mental status/memory loss; Confusion or disorientation; Additional info: Lethargic, on eliquis. R/O bleed TECHNIQUE: Imaging protocol: Computed tomography of the head without contrast. Radiation optimization: All CT scans at this facility use at least one of these dose optimization techniques: automated exposure control; mA and/or kV adjustment per patient size (includes targeted exams where dose is matched to clinical indication); or iterative reconstruction. COMPARISON: CT head wo con* [id number] 12/25/2022 3:50 PM RADIATION DOSE METRICS: Total DLP (mGy-cm): 1090.38 FINDINGS: Brain: There is mild diffuse cerebral atrophy present, consistent with this patient's age. Periventricular and subcortical white matter low densities are present which at this age likely represent microvascular ischemic change. There are chronic lacunar infarcts in the left cerebellar hemisphere, right thalamus, periventricular white matter of the right frontal lobe, right internal/external capsules, and right lentiform nucleus.No evidence for large acute ischemic infarction. Please note acute ischemia can be occult by head CT. Calcified plaque is present within the intracranial vasculature. Cerebral ventricles: No ventriculomegaly. Paranasal sinuses: Visualized sinuses are unremarkable. No fluid levels. Mastoid air cells: Visualized mastoid air cells are well aerated. Bones/joints: Unremarkable. No acute fracture. Soft tissues: Unremarkable. CT/CT head wo con* [id number] IMPRESSION: There are senescent changes of the brain as described above. No evidence for large acute ischemic infarction or acute intracranial injury.
--- NOTE | 2023-09-19 13:19 | ECG_ITS ---
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 Measurements Intervals [place] Rate: 70 P: 0 [place]: 0 QRS: -66 QRSD: 194 T: 115 QT: 477 QTc: 516 Interpretive Statements ELECTRONIC VENTRICULAR PACEMAKER ABNORMAL RHYTHM ECG Compared to ECG 09/17/2023 23:17:28 No significant changes Electronically Signed On 09-20-2023 8:28:39 SHOE CEMENTER by Hayes Peck M.D. [id number]
[2023-09-19] MEDS: RIFABUTIN 150 MG PO (13:47)
--- NOTE | 2023-09-19 15:20 | ECG_ITS ---
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 Measurements Intervals [place] Rate: 70 P: 0 [place]: 0 QRS: -74 QRSD: 214 T: 117 QT: 501 QTc: 542 Interpretive Statements ELECTRONIC VENTRICULAR PACEMAKER ABNORMAL RHYTHM ECG Compared to ECG 09/19/2023 13:38:51 No significant changes Electronically Signed On 09-20-2023 8:36:56 CARDIOLOGY TECHNICIAN by Hayes Peck M.D. [email or web address] [email or web address] medical center, ironton [email or web address]/store/[id number]
--- NOTE | 2023-09-19 15:32 | P.PN_ITS ---
Subjective 2 Subjective: Seen this morning. Patient appears slightly lethargic. Eliquis was held early this morning by cardiology. Urine output 3 L overnight. Patient appears sleepy. Vitals/I&O/Wt Last Vital Signs Temp 98.0 F 09/19/23 11:33 Pulse 70 09/19/23 12:00 Resp 14 09/19/23 12:00 BP 131/94 09/19/23 12:00 Pulse Ox 94 09/19/23 12:00 O2 Del Method Nasal Cannula 09/19/23 12:00 O2 Flow Rate 2 09/19/23 04:00 09/19/23 09/19/23 09/19/23 06:59 14:59 22:59 Intake Total 720 / 720 Output Total 1550 / 4425 400 / 400 Balance -1550 / -3349 320 / 320 Weight last 48 hrs Weight 113.398 kg Weight 116.845 kg Weight 118.705 kg Physical Exam 2 Const: COMMON NORMALS: no acute distress (Appears slightly lethargic and confused at this time.) Eye: COMMON NORMALS: Equal, round and reactive pupils present and EOMs intact bilaterally PUPIL: Yes Equal, round and reactive pupils present Neck/C-Spine: COMMON NORMALS: no JVD Lymph: LYMPHATIC: no lymphadenopathy noted Resp: COMMON NORMALS: normal respiratory effort, No retractions, No use of accessory muscles and clear to auscultation bilaterally AUSCULTATION: clear to auscultation bilaterally and crackles Cardio: COMMON NORMALS: no JVD, regular rate, regular rhythm, S1 normal heart sound present and S2 normal heart sound present RATE: regular rate RHYTHM: regular rhythm HEART SOUNDS: S1 normal heart sound present and S2 normal heart sound present GI: COMMON NORMALS: Normal to inspection, nondistended, normoactive bowel sounds present, Soft to palpation and non-tender PALPATION: Yes Soft to palpation : OTHER: Abdominal distention, fluid wave present, no guarding, no rebound, no rigidity, good bowel sounds in all 4 quadrants Extremity: NARRATIVE EXTREMITY EXAM: 2+ pitting edema Neuro: COMMON NORMALS: CN's II-XII intact bilaterally, moves all extremities and no focal motor deficits Psych: COMMON NORMALS: mental status grossly normal Data 09/19/23 04:00 09/19/23 04:00 A&P Assessment and plan (1) HTN (hypertension): Qualifiers: Hypertension type: essential hypertension Qualified Code(s): I10 - Essential (primary) hypertension (2) Acute on chronic heart failure: (3) Systolic congestive heart failure with reduced left ventricular function, NYHA class 4: (4) Nonrheumatic aortic (valve) stenosis: (5) Ascending aortic aneurysm: (6) Type 2 diabetes mellitus: (7) Acute on chronic congestive heart failure: Qualifiers: Heart failure type: unspecified Qualified Code(s): I50.9 - Heart failure, unspecified (8) Atrial fibrillation: (9) Acute hypoxemic respiratory failure: Plan Acute hypoxic respiratory failure -Secondary to systolic diastolic CHF exacerbation Plan ? Patient does not want Salazar catheter in place, ? Urine output monitoring, fluid restrictions at 1000 cc, ? Lasix 40 IV twice daily, _ patient on high risk medication such as lasix and needs BMP monitored BID to look for electrolyte abnormalities ? Monitor potassium, monitor creatinine, monitor magnesium ?cardiac echo. Slightly reduced EF compared to before. - Continue IV diuresis ? Consult cardiology. Recommendations appreciated -Full code, ? Lovenox for DVT prophylaxis Altered mental status Agitated overnight ? Check ammonia, vitamin B12, TSH ? Check CT head. ? Check ABG. ? Check urinalysis, urine culture BG normal Epistaxis ? Morning dose Eliquis held by cardiology today. Congestive hepatopathy -Has transaminitis?improving -Continue to monitor ARUNA on CKD ? Likely secondary to cardiorenal syndrome ? Monitor urine output ? Monitor creatinine - 2.8 on admission, 2.3 today.?Stable Atrial fibrillation, ? Medically on Eliquis. NSTEMI ? Serial EKGs, serial troponins, telemetry monitoring History of ischemic cardiomyopathy, CHF as above History of Q fever, cat scratch fever, continue p.o. antibiotics History of aortic aneurysm, followed by Dr. Scott as outpatient Full Code Attestations 2 Medical Necessity Statement*: Continued hospitalization for management of multiple medical problems Diagnoses Essential hypertension I10 Hypertension type: essential hypertension Acute on chronic heart failure I50.9 Systolic congestive heart failure with reduced left ventricular function, NYHA class 4 I50.20 Nonrheumatic aortic (valve) stenosis I35.0 Ascending aortic aneurysm I71.21 Type 2 diabetes mellitus E11.9 Acute on chronic congestive heart failure I50.9 Heart failure type: unspecified Atrial fibrillation I48.91 Acute hypoxemic respiratory failure J96.01
[2023-09-19 15:39] LABS: Troponin(5th) Baseline 70 ng/L (0-15)
[2023-09-19 16:52] LABS: Glucose Point of Care 154 mg/dL (70-110)
[2023-09-19 17:43] LABS: Ammonia 57 umol/L (16-60)
[2023-09-19 17:45] LABS: Troponin 5 2HR 68.68 ng/L (0-15); Troponin 5 2HR Delta -1.32 ABS# (0-10)
[2023-09-19] MEDS: insulin lispro 100 unit/1 mL SUBCUT (18:00)
[2023-09-19 18:14] LABS: Vitamin B12 1519 pg/mL (232-1245)
[2023-09-19 18:16] LABS: Hepatitis A Antibody IgM Non-Reactive (Nonreactive); Hepatitis B Core AB, Total Non-Reactive (Nonreactive); Hepatitis B Surface AB < 3.5 (11.5-1000); Hepatitis B Surface Antigen Non-Reactive (Nonreactive); Hepatitis C Virus Antibody Non-Reactive (Nonreactive)
[2023-09-19] MEDS: pantoprazole 40 mg SDV IVP (20:22)
[2023-09-19 20:38] LABS: Glucose Point of Care 125 mg/dL (70-110)
[2023-09-19 21:36] LABS: Troponin 5 6HR 73.99 ng/L (0-15); Troponin 5 6HR Delta 3.99 ng/L (0-12)
[2023-09-19 22:19] LABS: Bilirubin Urine Neg (Negative); Blood Urine 2+ (Negative); Glucose Urine UA Norm (Normal); Ketones Urine Negative (Negative); Nitrate Urine Negative (Negative); Protein Urine Neg (Negative); Specific Gravity, Urine 1.005 (1.005-1.030); Urine Appearance SL Hazy (CLEAR); Urine Color Dark Yellow (Yellow); pH Urine 5 (5-7)
[2023-09-19 22:20] LABS: Bacteria Urine TRACE /hpf; Leukocyte Esterase Urine Negative (Negative); Squamous Epithelial Cell Urine 0-4 /hpf (0-5); Urobilinogen Urine Norm (Negative); WBC Urine 0-4 /hpf (0-5)
[2023-09-20] VITALS (8 sets, daily range): BP systolic 94–112; BP diastolic 58–72; PULSE 70–71; RESP 14–19; TEMP 36.8–38; O2SAT 96–98
[2023-09-20 05:51] LABS: Basophils % 0.4 %; Eosinophils # 0.2 10^3/uL (0.0-0.8); Eosinophils % 3.7 %; Hematocrit 37.7 % (37-53); Lymphocytes % 21.9 %; Mean Corpuscular HGB Conc 30.8 g/dL (30-55); Mean Corpuscular Hemoglobin 31.9 pg (27-33); Mean Corpuscular Volume 103.6 fl (82-101); Mean Platelet Volume 12.2 fL (7.4-10.4); Monocytes # 0.5 10^3/uL (0.2-0.9); Monocytes % 11.3 %; Neutrophils # 2.89 10^3/uL (1.8-7.7); Neutrophils % 62.5 %; Nucleated Red Blood Cells % 0 %; Platelet Count 144 10^3/cmm (157-399); Red Blood Count 3.64 10^6/uL (3.85-5.65); Red Cell Distribution Width 14.6 % (12.1-15.1); White Blood Count 4.62 10^3/uL (3.29-11.43)
[2023-09-20 06:07] LABS: Alanine Aminotransferase 295 U/L (0-41); Albumin Level 3.3 g/dL (3.5-5.2); Alkaline Phosphatase 37 U/L (40-130); Anion Gap 9.9 (5-19); Aspartate Amino Transferase 248 U/L (0-40); Blood Urea Nitrogen 39 mg/dL (8-23); Calcium 8.2 mg/dL (8.5-10.5); Carbon Dioxide 34 mmol/L (22-29); Chloride 98 mmol/L (98-107); Globulin 3.9 g/dL (1.3-4.6); Glomerular Filtration Rate 28.6 mL/min (90-130); Glucose 114 mg/dL (65-115); Magnesium 1.9 mg/dL (1.7-2.3); Osmolality Calculated 296 mOsm/kg (285-295); Phosphorus 4.1 mg/dL (2.5-4.5); Potassium 3.9 mmol/L (3.5-5.1); Sodium 138 mmol/L (136-145); Total Bilirubin 0.9 mg/dL (0.15-1.2); Total Protein 7.2 g/dL (6.6-8.7)
[2023-09-20 06:33] LABS: Glucose Point of Care 100 mg/dL (70-110)
--- NOTE | 2023-09-20 07:42 | P.PN_ITS ---
Subjective 2 Subjective: Ellis is much more alert today. He is not confused. He states he feels better. He is less short of breath. He is able to lie flat. Edema has for the most part resolved. No further epistaxis. Hemoglobin and hematocrit are stable. BUN and creatinine are also stable 2.3 and 39. Transaminases are trending downward. Ins and outs are -1320 mL Vitals/I&O/Wt Last Vital Signs Temp 98.9 F 09/20/23 07:04 Pulse 71 09/20/23 07:04 Resp 17 09/20/23 07:04 BP 102/67 09/20/23 07:04 Pulse Ox 97 09/20/23 07:04 O2 Del Method Nasal Cannula 09/20/23 07:04 O2 Flow Rate 2 09/19/23 04:00 09/19/23 09/20/23 09/20/23 22:59 06:59 14:59 Intake Total 500 / 1220 Output Total 1140 / 1540 1000 / 2540 Balance -640 / -320 -1000 / -1320 Weight last 48 hrs Weight 250 lb 12.8 oz Weight 250 lb Physical Exam 2 Narrative: GENERAL: In general he is much more comfortable today lying flat HEENT: Exam within normal limits. NECK: Supple without jugular vein distention. The carotid upstroke is normal without bruits. BACK: Exam normal. LUNGS: Clear. HEART: Irregular rate and rhythm ABDOMEN: Benign without organomegaly or tenderness. EXTREMITIES: No edema. NEUROLOGIC: Exam normal. SKIN: Unremarkable. Data 09/20/23 04:52 09/20/23 04:52 A&P Assessment and plan (1) HTN (hypertension): Qualifiers: Hypertension type: essential hypertension Qualified Code(s): I10 - Essential (primary) hypertension (2) Hx of heart surgery: (3) Nonrheumatic aortic (valve) stenosis: (4) History of cardiac pacemaker: (5) Nonischemic cardiomyopathy: (6) Systolic congestive heart failure with reduced left ventricular function, NYHA class 4: (7) Acute on chronic heart failure: (8) Ascending aortic aneurysm: (9) Atrial fibrillation: (10) Presence of permanent cardiac pacemaker: (11) Anticoagulation adequate with anticoagulant therapy: Plan Change to Lasix by mouth. Restart apixaban at 2.5 mg twice daily. If he bleeds again discontinue aspirin. Attestations 2 Medical Necessity Statement*: Hospitalization for management of multiple chronic medical problems and Moderate Time for a total of 30 minutes, includes reviewing past or interval history, examining/interviewing patient, placing orders, counseling patient/family/other support, updating patient/family/other support, discussing plan of care with staff and documenting encounter Diagnoses Essential hypertension I10 Hypertension type: essential hypertension Hx of heart surgery Z98.890 Nonrheumatic aortic (valve) stenosis I35.0 History of cardiac pacemaker Z95.0 Nonischemic cardiomyopathy I42.8 Systolic congestive heart failure with reduced left ventricular function, NYHA class 4 I50.20 Acute on chronic heart failure I50.9 Ascending aortic aneurysm I71.21 Atrial fibrillation I48.91 Presence of permanent cardiac pacemaker Z95.0 Anticoagulation adequate with anticoagulant therapy Z79.01
[2023-09-20] MEDS: fenofibrate 145 mg Tablet PO (09:24)
[2023-09-20] MEDS: pregabalin 150 mg Capsule 300 MG PO ×2 (09:24→17:51)
[2023-09-20] MEDS: sacubitril/valsartan 24-26 mg Tablet 1 EACH PO ×2 (09:24→17:52)
[2023-09-20] MEDS: aspirin 81 mg EC Tablet PO (09:24)
[2023-09-20] MEDS: atorvastatin 40 mg Tablet PO (09:24)
[2023-09-20] MEDS: FUROsemide 40 mg Tablet PO ×2 (09:24→17:51)
[2023-09-20] MEDS: RIFABUTIN 150 MG PO (09:27)
[2023-09-20 12:09] LABS: Glucose Point of Care 160 mg/dL (70-110)
--- NOTE | 2023-09-20 12:10 | P.PN_ITS ---
Subjective 2 Subjective: seen today 2.4L UO overnight at bedside, updated Vitals/I&O/Wt Last Vital Signs Temp 100.4 F H 09/20/23 11:07 Pulse 70 09/20/23 11:07 Resp 19 H 09/20/23 11:07 BP 103/65 09/20/23 11:07 Pulse Ox 96 09/20/23 11:07 O2 Del Method Nasal Cannula 09/20/23 11:07 O2 Flow Rate 2 09/19/23 04:00 09/19/23 09/20/23 09/20/23 22:59 06:59 14:59 Intake Total 500 / 1220 240 / 240 Output Total 1140 / 1540 1000 / 2540 320 / 320 Balance -640 / -320 -1000 / -1320 -80 / -80 Weight last 48 hrs Weight 113.761 kg Weight 113.398 kg Physical Exam 2 Const: COMMON NORMALS: no acute distress and patient oriented x3 Eye: COMMON NORMALS: Equal, round and reactive pupils present and EOMs intact bilaterally PUPIL: Yes Equal, round and reactive pupils present Neck/C-Spine: COMMON NORMALS: no JVD Lymph: LYMPHATIC: no lymphadenopathy noted Resp: COMMON NORMALS: normal respiratory effort, No retractions, No use of accessory muscles and clear to auscultation bilaterally AUSCULTATION: clear to auscultation bilaterally and crackles Cardio: COMMON NORMALS: no JVD, regular rate, regular rhythm, S1 normal heart sound present and S2 normal heart sound present RATE: regular rate RHYTHM: regular rhythm HEART SOUNDS: S1 normal heart sound present and S2 normal heart sound present GI: COMMON NORMALS: Normal to inspection, nondistended, normoactive bowel sounds present, Soft to palpation and non-tender PALPATION: Yes Soft to palpation : OTHER: Abdominal distention, fluid wave present, no guarding, no rebound, no rigidity, good bowel sounds in all 4 quadrants Extremity: NARRATIVE EXTREMITY EXAM: Trace pitting edema, wrinkling noted Neuro: COMMON NORMALS: patient oriented x3, CN's II-XII intact bilaterally, moves all extremities and no focal motor deficits Psych: COMMON NORMALS: mental status grossly normal Data 09/20/23 04:52 09/20/23 04:52 A&P Assessment and plan (1) HTN (hypertension): Qualifiers: Hypertension type: essential hypertension Qualified Code(s): I10 - Essential (primary) hypertension (2) Acute on chronic heart failure: (3) Systolic congestive heart failure with reduced left ventricular function, NYHA class 4: (4) Nonrheumatic aortic (valve) stenosis: (5) Ascending aortic aneurysm: (6) Type 2 diabetes mellitus: (7) Acute on chronic congestive heart failure: Qualifiers: Heart failure type: unspecified Qualified Code(s): I50.9 - Heart failure, unspecified (8) Atrial fibrillation: (9) Acute hypoxemic respiratory failure: Plan Acute hypoxic respiratory failure -Secondary to systolic diastolic CHF exacerbation Plan ? Patient does not want Salazar catheter in place, ? Urine output monitoring, fluid restrictions at 1000 cc, _ patient on high risk medication such as lasix and needs BMP monitored BID to look for electrolyte abnormalities ? Monitor potassium, monitor creatinine, monitor magnesium ?cardiac echo. Slightly reduced EF compared to before. - switch to oral lasix ? Consult cardiology. Recommendations appreciated -Full code, ? Lovenox for DVT prophylaxis PLAN FOR POSSIBLE DC IN AM Altered mental status - resolved Agitated overnight - resolved ? Check ammonia, vitamin B12, TSH - ok ? Check CT head. ok ? Check ABG. - ok ? Check urinalysis, urine culture - pending BG normal Epistaxis ? restart eliquis. if continues to bleed Congestive hepatopathy -Has transaminitis?improving -Continue to monitor ARUNA on CKD ? Likely secondary to cardiorenal syndrome ? Monitor urine output ? Monitor creatinine - 2.8 on admission, 2.3 today.?Stable Atrial fibrillation, ? Medically on Eliquis. NSTEMI ? Serial EKGs, serial troponins, telemetry monitoring History of ischemic cardiomyopathy, CHF as above History of Q fever, cat scratch fever, continue p.o. antibiotics History of aortic aneurysm, followed by Dr. Scott as outpatient Full Code Attestations 2 Medical Necessity Statement*: Hospitalization for management of multiple chronic medical problems Diagnoses Essential hypertension I10 Hypertension type: essential hypertension Acute on chronic heart failure I50.9 Systolic congestive heart failure with reduced left ventricular function, NYHA class 4 I50.20 Nonrheumatic aortic (valve) stenosis I35.0 Ascending aortic aneurysm I71.21 Type 2 diabetes mellitus E11.9 Acute on chronic congestive heart failure I50.9 Heart failure type: unspecified Atrial fibrillation I48.91 Acute hypoxemic respiratory failure J96.01
[2023-09-20] MEDS: apixaban 5 mg Tablet 2.5 MG PO ×2 (12:20→20:03)
[2023-09-20] MEDS: insulin lispro 100 unit/1 mL SUBCUT ×2 (13:00→17:50)
[2023-09-20 16:50] LABS: Glucose Point of Care 167 mg/dL (70-110)
--- NOTE | 2023-09-20 19:04 | PC.NURSE ---
add note: Home meds Pt's brought the pt's Rifabutin due to nonformulary med but the pt home meds comes in a dispill package yesterday. notified pharmacy regarding this, they said we have to waste the other meds in the package and take out the maroon/dark capsules w/c are the Rifabutinas as they drug verified and provided the bar scan med code. i explained it to the that we have to waste the rest of the meds in the package and take out the Rifabutin because we are already giving those other home meds here in hospital except the nonformulary Rifabutin if she agreed. agrees. and put the home meds in med room and pt's pyxis in home meds.
[2023-09-20] MEDS: pantoprazole 40 mg SDV IVP (20:04)
[2023-09-20 20:51] LABS: Glucose Point of Care 198 mg/dL (70-110)
[2023-09-21] VITALS: BP 111/78; PULSE 70; RESP 16; TEMP 36.9; O2SAT 95
[2023-09-21 04:00] VITALS: BP 115/79; PULSE 70; RESP 28; TEMP 36.8; O2SAT 95
[2023-09-21 04:03] LABS: Basophils % 0.2 %; Eosinophils # 0.1 10^3/uL (0.0-0.8); Eosinophils % 1.5 %; Hematocrit 35.2 % (37-53); Lymphocytes # 1.1 10^3/uL (0.8-4.8); Lymphocytes % 16.3 %; Mean Corpuscular Hemoglobin 31.5 pg (27-33); Mean Corpuscular Volume 101.7 fl (82-101); Mean Platelet Volume 12.1 fL (7.4-10.4); Monocytes # 0.9 10^3/uL (0.2-0.9); Monocytes % 12.8 %; Neutrophils # 4.57 10^3/uL (1.8-7.7); Neutrophils % 68.9 %; Nucleated Red Blood Cells % 0 %; Platelet Count 124 10^3/cmm (157-399); Red Blood Count 3.46 10^6/uL (3.85-5.65); Red Cell Distribution Width 14.4 % (12.1-15.1); White Blood Count 6.63 10^3/uL (3.29-11.43)
[2023-09-21 04:25] LABS: Blood Urea Nitrogen 39 mg/dL (8-23); Calcium 8.1 mg/dL (8.5-10.5); Carbon Dioxide 31 mmol/L (22-29); Chloride 101 mmol/L (98-107); Glomerular Filtration Rate 30.1 mL/min (90-130); Glucose 114 mg/dL (65-115); Magnesium 1.8 mg/dL (1.7-2.3); Osmolality Calculated 300 mOsm/kg (285-295); Sodium 140 mmol/L (136-145)
[2023-09-21 05:53] VITALS: PULSE 70
[2023-09-21 06:27] LABS: Glucose Point of Care 111 mg/dL (70-110)
--- NOTE | 2023-09-21 06:43 | P.PN_ITS ---
Subjective 2 Subjective: Jesús remains improved this morning. He is able to lie flat. Fluid balance is - 900 mL of urine. Not short of breath. No chest pain. Edema has resolved. Creatinine is stable 2.2. BUN 39 as yesterday. I started the Eliquis back at 2.5 mg twice daily yesterday. He remains on low-dose aspirin. Vitals/I&O/Wt Last Vital Signs Temp 98.3 F 09/21/23 04:00 Pulse 70 09/21/23 05:53 Resp 28 H 09/21/23 04:00 BP 115/79 09/21/23 04:00 Pulse Ox 95 09/21/23 04:00 O2 Del Method Nasal Cannula 09/21/23 04:00 O2 Flow Rate 2 09/19/23 04:00 09/20/23 09/20/23 09/21/23 14:59 22:59 06:59 Intake Total 462 / 462 422 / 884 Output Total 320 / 320 720 / 1040 750 / 1790 Balance 142 / 142 -298 / -156 -750 / -906 Weight last 48 hrs Weight 246 lb Weight 250 lb 12.8 oz Physical Exam 2 Narrative: GENERAL: In general he looks and feels well HEENT: Exam within normal limits. NECK: Supple without jugular vein distention. The carotid upstroke is normal without bruits. BACK: Exam normal. LUNGS: Clear. HEART: Regular rate and rhythm. ABDOMEN: Benign without organomegaly or tenderness. EXTREMITIES: No edema. NEUROLOGIC: Exam normal. SKIN: Unremarkable. Data 09/21/23 03:44 09/21/23 03:44 Micro: Microbiology 09/17/23 21:34 Blood Culture - Preliminary Blood 09/17/23 21:25 Blood Culture - Preliminary Blood A&P Assessment and plan (1) HTN (hypertension): Qualifiers: Hypertension type: essential hypertension Qualified Code(s): I10 - Essential (primary) hypertension (2) Hx of heart surgery: (3) History of cardiac pacemaker: (4) Nonischemic cardiomyopathy: (5) Systolic congestive heart failure with reduced left ventricular function, NYHA class 4: (6) Acute on chronic heart failure: (7) Ascending aortic aneurysm: (8) Atrial fibrillation: (9) Presence of permanent cardiac pacemaker: (10) Acute on chronic congestive heart failure: Qualifiers: Heart failure type: unspecified Qualified Code(s): I50.9 - Heart failure, unspecified (11) Anticoagulation adequate with anticoagulant therapy: (12) Pulmonary HTN: (13) Type 2 diabetes mellitus: (14) Obesity: (15) Chronic kidney disease: Plan He is much improved. He probably can go home today. I would probably send him home on the reduced dose of Eliquis. I would increase his outpatient dose of Lasix from 20 mg daily to 40 mg daily. I would use the metolazone on an as- needed basis. He should go home on Entresto. I would send him home on low-dose aspirin but I would stop it if he has further nosebleeds. Attestations 2 Medical Necessity Statement*: Should be able to go home and Moderate Time for a total of 35 minutes, includes reviewing past or interval history, examining/interviewing patient, counseling patient/family/other support, updating patient/family/other support, communicating with other healthcare providers and documenting encounter Diagnoses Essential hypertension I10 Hypertension type: essential hypertension Hx of heart surgery Z98.890 History of cardiac pacemaker Z95.0 Nonischemic cardiomyopathy I42.8 Systolic congestive heart failure with reduced left ventricular function, NYHA class 4 I50.20 Acute on chronic heart failure I50.9 Ascending aortic aneurysm I71.21 Atrial fibrillation I48.91 Presence of permanent cardiac pacemaker Z95.0 Acute on chronic congestive heart failure I50.9 Heart failure type: unspecified Anticoagulation adequate with anticoagulant therapy Z79.01 Pulmonary HTN I27.20 Type 2 diabetes mellitus E11.9 Obesity E66.9 Chronic kidney disease N18.9
--- NOTE | 2023-09-21 07:42 | PC.SOCIAL ---
IMM Update Pg. 2 of IMM updated and reviewed with patient, who verbalized understanding. Copy provided. Copy in chart initial, dated, and timed.
[2023-09-21 08:00] VITALS: PULSE 70
[2023-09-21] MEDS: RIFABUTIN 150 MG PO (08:35)
[2023-09-21] MEDS: fenofibrate 145 mg Tablet PO (08:35)
[2023-09-21] MEDS: pregabalin 150 mg Capsule 300 MG PO (08:35)
[2023-09-21] MEDS: sacubitril/valsartan 24-26 mg Tablet 1 EACH PO (08:35)
[2023-09-21] MEDS: aspirin 81 mg EC Tablet PO (08:36)
[2023-09-21] MEDS: apixaban 5 mg Tablet 2.5 MG PO (08:36)
[2023-09-21] MEDS: atorvastatin 40 mg Tablet PO (08:36)
[2023-09-21] MEDS: FUROsemide 40 mg Tablet PO (08:36)
[2023-09-21 10:05] VITALS: BP 115/79
--- NOTE | 2023-09-21 10:08 | PC.NURSE ---
Family at bedside trying to push the issue with getting pt discharged at this time and wanting to know how long it will be. Informed pt earlier that although Dr. Peck is ok with him being discharged that the hospitalist was the ultimate one to discharge him and will write orders and she has not seen him yet nor said anything about discharging him as we don't have discharge orders as yet. Pt went ahead and apparently instructed his family that he was discharged and now the family is itching at the bit to get him out. Dr. Harris came in and talked to the pt and family and informed them that their hospitalist is not at the hospital as yet d/t the weather and she is unable to get out of her driveway but assured them that she would be here sometime later today and that she is the one who has to write the discharge orders.
--- NOTE | 2023-09-21 10:24 | PM.DCS ---
Discharge Providers Date of Admission: 09/17/23 20:09 Date of Discharge: September 21, 2023 Attending Provider at Admission: Ayush Krishnamurthy Attending Provider at Discharge: Lise Lindsay MD Primary Care Provider: Diana Butcher MD Diagnoses at Discharge Discharge Diagnosis (1) HTN (hypertension): Status: Chronic Qualifiers: Hypertension type: essential hypertension Qualified Code(s): I10 - Essential (primary) hypertension (2) Hx of heart surgery: Status: Acute Permanent problem details: Aortic valve replacement and aneurysm repair (3) History of cardiac pacemaker: Status: Acute (4) Nonischemic cardiomyopathy: Status: Acute (5) Systolic congestive heart failure with reduced left ventricular function, NYHA class 4: Status: Acute (6) Acute on chronic heart failure: Status: Acute (7) Ascending aortic aneurysm: Status: Acute (8) Atrial fibrillation: Status: Acute (9) Presence of permanent cardiac pacemaker: Status: Acute (10) Acute on chronic congestive heart failure: Status: Acute Qualifiers: Heart failure type: unspecified Qualified Code(s): I50.9 - Heart failure, unspecified (11) Anticoagulation adequate with anticoagulant therapy: Status: Acute (12) Pulmonary HTN: Status: Acute (13) Type 2 diabetes mellitus: Status: Chronic (14) Obesity: Status: Acute (15) Chronic kidney disease: Status: Chronic Reason for Visit Reason for Visit: kidney and o2 trouble Brief History: Pawan Marcum is a 68 year old male who is significantly chronically ill. 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 He was complaining of cough, shortness of breath, inability to lie flat and lower extremity edema. he was hypoxic Upon his arrival to the emergency room. Patient has a h/o chronic respiratory failure with hypoxia on oxygen due to multiple underlying problems. He had abnormal labs by way of elevated BNP, elevated troponins without significant delta. ARUNA with cr at 2.3. He was admitted in view of acute on chronic sytsolic heart failure with worsened respiratory distress. He was treated with iv diuresis which was converted to oral. He had a nose bleed which settled with holding Eliquis. Echo noted reduced EF compared to prior, he was evaluated by cardiology, overall low concern for ACS, difference thought to be minimal. He improved with these interventions. Stable for discharge today. Cr is stable at 2.2. Medication changes during this admission: Indomethacin discontinued due to nose bleeding. to resume after cardiology follow up, Eliquis dose reduced to 2.5 mg BID per cardiology recommendation, increase his outpatient dose of Lasix from 20 mg daily to 40 mg daily, continue metolazone on an as-needed basis, continue Entresto and low dose ASA. Follow up with cardiology outpatient in one week. Physical Exam Narrative: General: No acute distress, AO x3 HEENT: PERRLA, pupils bilaterally equal and reactive, pallors not present Chest: Normal vesicular breath sounds, no added sounds, equal good air entry bilaterally CVS: S1-S2 regular, no murmurs, no tachycardia, no gallops, no rubs Abdomen: Soft, nontender, no organomegaly, bowel sounds present Neuro: No focal deficits, no facial deformity, AO x3, power 5/5 in all limbs Discharge Data Studies Completed and Pending Completed Studies During Hospitalization Category Date Time Status CT head wo con* [id number] Stat Cat Scan 09/19/23 13:19 Completed XR chest 1V portable [id number] Stat Exams 09/17/23 16:23 Completed CV. echo complete* [id number] Routine Ultrasound 09/18/23 21:03 Completed US gall bladder [id number] Stat Ultrasound 09/17/23 17:39 Completed Pending at discharge Category Date Time Status Blood Cultures ([facility]) Routine Lab 09/17/23 21:25 Results Blood Cultures ([facility]) Routine Lab 09/17/23 21:34 Results Urine Culture Stat Lab 09/19/23 22:00 Results Radiology Impressions Chest X-Ray 09/17/23 16:23 IMPRESSION: Similar moderate cardiomegaly. No acute findings. Gallbladder Ultrasound 09/17/23 17:39 IMPRESSION: 1. Cholelithiasis. Contracted gallbladder. 2. Moderate perihepatic ascites. 3. Dilated hepatic veins and intrahepatic IVC with pulsatile waveform in the main portal vein all findings suggestive of tricuspid regurgitation or right heart failure. Head CT 09/19/23 13:19 IMPRESSION: There are senescent changes of the brain as described above. No evidence for large acute ischemic infarction or acute intracranial injury. Laboratory Results WBC 6.63 10^3/uL (3.29-11.43) 09/21/23 03:44 RBC 3.46 10^6/uL (3.85-5.65) L 09/21/23 03:44 Hgb 10.90 g/dL (11.27-16.99) L 09/21/23 03:44 Hct 35.2 % (37-53) L 09/21/23 03:44 MCV 101.7 fl (82-101) H 09/21/23 03:44 MCH 31.5 pg (27-33) 09/21/23 03:44 MCHC 31.0 g/dL (30-55) 09/21/23 03:44 RDW 14.4 % (12.1-15.1) 09/21/23 03:44 Plt Count 124 10^3/cmm (157-399) L 09/21/23 03:44 MPV 12.1 fL (7.4-10.4) H 09/21/23 03:44 Neut % (Auto) 68.9 % 09/21/23 03:44 Lymph % (Auto) 16.3 % 09/21/23 03:44 Sevier % (Auto) 12.8 % 09/21/23 03:44 Eos % (Auto) 1.5 % 09/21/23 03:44 Baso % (Auto) 0.2 % 09/21/23 03:44 Neut # (Auto) 4.57 10^3/uL (1.8-7.7) 09/21/23 03:44 Lymph # (Auto) 1.1 10^3/uL (0.8-4.8) 09/21/23 03:44 Sevier # (Auto) 0.9 10^3/uL (0.2-0.9) 09/21/23 03:44 Eos # (Auto) 0.1 10^3/uL (0.0-0.8) 09/21/23 03:44 Baso # (Auto) 0.0 10^3/uL (0.0-0.1) 09/21/23 03:44 Nucleated RBC % (auto) 0 % 09/21/23 03:44 Nucleated RBCs # 0.0 /100WBC 09/21/23 03:44 Specimen Type Arterial 09/19/23 12:54 Sample Site Radial, right 09/19/23 12:54 ABG pH 7.39 (7.35-7.45) 09/19/23 12:54 ABG pCO2 53.1 mmHg (35-45) H 09/19/23 12:54 ABG pO2 69.8 mmHg (80.0-100.0) L 09/19/23 12:54 ABG PO2/FiO2 Ratio 0 09/19/23 12:54 ABG HCO3 32.4 mmol/L (22-26) H 09/19/23 12:54 ABG O2 Saturation 93.3 09/19/23 12:54 ABG Base Excess 6.2 mmol/L (-2.0-2.0) H 09/19/23 12:54 Anthony Test Pos 09/19/23 12:54 A-a O2 Gradient 9.0 mmHg (5-10) 09/19/23 12:54 Hematocrit 38.0 % (42-52) L 09/19/23 12:54 Hgb O2 Saturation 91.4 % (95-100) L 09/19/23 12:54 Carboxyhemoglobin 1.6 %THgb (0.4-20.1) 09/19/23 12:54 Methemoglobin 0.4 % (0.4-1.5) 09/19/23 12:54 Total Hemoglobin 12.4 g/dL (14-18) L 09/19/23 12:54 Sodium 139.0 mmol/L (131-143) 09/19/23 12:54 Potassium 3.9 mmol/L (3.5-5.0) 09/19/23 12:54 Glucose 143.0 mg/dL (70-115) H 09/19/23 12:54 Ionized Calcium 1.2 mmol/L (1.1-1.4) 09/19/23 12:54 O2 Delivery Device Nc 09/19/23 12:54 O2 Liters/Min 2.0 % 09/19/23 12:54 FiO2 28.0 % 09/19/23 12:54 Blueberry Grower ID Monro 09/19/23 12:54 Sodium 140 mmol/L (136-145) 09/21/23 03:44 Potassium 4.0 mmol/L (3.5-5.1) 09/21/23 03:44 Chloride 101 mmol/L (98-107) 09/21/23 03:44 Carbon Dioxide 31 mmol/L (22-29) H 09/21/23 03:44 Anion Gap 12.0 (5-19) 09/21/23 03:44 BUN 39 mg/dL (8-23) H 09/21/23 03:44 Creatinine 2.2 mg/dL (0.7-1.2) H 09/21/23 03:44 GFR Calculation 30.1 mL/min (90-130) L 09/21/23 03:44 Glucose 114 mg/dL (65-115) 09/21/23 03:44 POC Glucose 111 mg/dL (70-110) H 09/21/23 06:22 Estimat Average Glucose 137 09/18/23 04:01 Hemoglobin A1c 6.4 % (4.0-6.0) H 09/18/23 04:01 Calculated Osmolality 300 mOsm/kg (285-295) H 09/21/23 03:44 Lactic Acid 0.9 mmol/L (0.5-2.2) 09/18/23 04:01 Calcium 8.1 mg/dL (8.5-10.5) L 09/21/23 03:44 Phosphorus 4.1 mg/dL (2.5-4.5) 09/20/23 04:52 Magnesium 1.8 mg/dL (1.7-2.3) 09/21/23 03:44 Total Bilirubin 0.9 mg/dL (0.15-1.2) 09/20/23 04:52 AST 248 U/L (0-40) H 09/20/23 04:52 ALT 295 U/L (0-41) H 09/20/23 04:52 Alkaline Phosphatase 37 U/L (40-130) L 09/20/23 04:52 Ammonia 57 umol/L (16-60) 09/19/23 17:01 Troponin T Baseline 70 ng/L (0-15) H 09/19/23 14:36 Troponin T 120 Minute 68.68 ng/L (0-15) H 09/19/23 17:01 Delta Troponin T -1.32 ABS# (0-10) L 09/19/23 17:01 Troponin T Hi Sens 6Hr 73.99 ng/L (0-15) H 09/19/23 20:49 Troponin T Hi Sens 6Hr Delta 3.99 ng/L (0-12) 09/19/23 20:49 NT-Pro-B Natriuret Pep 8138 pg/mL (0-125) H 09/18/23 04:01 Total Protein 7.2 g/dL (6.6-8.7) 09/20/23 04:52 Albumin 3.3 g/dL (3.5-5.2) L 09/20/23 04:52 Globulin 3.9 g/dL (1.3-4.6) 09/20/23 04:52 Triglycerides 122 mg/dL (0-150) 09/18/23 04:01 Cholesterol 83 mg/dL (0-200) 09/18/23 04:01 LDL Cholesterol, Calc 46 mg/dL (50-129) L 09/18/23 04:01 HDL Cholesterol 13 mg/dL (60-100) L 09/18/23 04:01 LDL/HDL Ratio 3.54 RATIO (0.00-3.22) H 09/18/23 04:01 Cholesterol/HDL Ratio 6.38 mg/dL (1.0-5.00) H 09/18/23 04:01 Vitamin B12 1519 pg/mL (232-1245) H 09/19/23 17:01 Procalcitonin 0.31 ng/mL (0-0.5) 09/18/23 04:01 TSH 1.49 uIU/mL (0.27-4.20) 09/18/23 04:01 Urine Color Dark yellow (Yellow) 09/19/23 21:50 Urine Appearance Sl hazy (CLEAR) A 09/19/23 21:50 Urine pH 5 (5-7) 09/19/23 21:50 Ur Specific Hayden 1.005 (1.005-1.030) 09/19/23 21:50 Urine Protein Neg (Negative) 09/19/23 21:50 Urine Glucose (UA) Norm (Normal) 09/19/23 21:50 Urine Ketones Negative (Negative) 09/19/23 21:50 Urine Blood 2+ (Negative) H 09/19/23 21:50 Urine Nitrate Negative (Negative) 09/19/23 21:50 Urine Bilirubin Neg (Negative) 09/19/23 21:50 Urine Urobilinogen Norm mg/dL (Negative) 09/19/23 21:50 Ur Leukocyte Esterase Negative (Negative) 09/19/23 21:50 Urine RBC 5-10 /hpf (0-2) H 09/19/23 21:50 Urine WBC 0-4 /hpf (0-5) H 09/19/23 21:50 Ur Squamous Epith Cells 0-4 /hpf (0-5) H 09/19/23 21:50 Amorphous Sediment Not Reportable 09/19/23 21:50 Urine Bacteria Trace /hpf (NONE) 09/19/23 21:50 Coronavirus 229E (PCR) Not detected (NOT DETECT) 09/17/23 20:20 Hepatitis A IgM Ab Non-reactive (Nonreactive) 09/19/23 17:01 Hep Bs Antigen Non-reactive (Nonreactive) 09/19/23 17:01 Hep Bs Antibody < 3.5 (11.5-1000) L 09/19/23 17:01 Hep B Core Total Ab Non-reactive (Nonreactive) 09/19/23 17:01 Hep B Core IgM Ab Non-reactive (Nonreactive) 09/17/23 21:25 Hepatitis C Antibody Non-reactive (Nonreactive) 09/19/23 17:01 HIV 1&2 Ab & HIV 1 Ag Non-reactive (Non-Reactiv) 09/17/23 21:25 HIV 1&2 Antibody Non-reactive (Non-Reactiv) 09/17/23 21:25 SARS-CoV-2 (PCR) Not detected (NOT DETECT) 09/17/23 20:20 Vitals Last Vital Signs Temp 98.3 F 09/21/23 04:00 Pulse 70 09/21/23 08:00 Resp 28 H 09/21/23 04:00 BP 115/79 09/21/23 10:05 Pulse Ox 95 09/21/23 04:00 O2 Del Method Nasal Cannula 09/21/23 04:00 O2 Flow Rate 2 09/19/23 04:00 Discharge Plan Discharge Patient Disposition: Home Condition: Stable Prescriptions: Continued nitroglycerin 0.3 mg tablet, sublingual 0.3 mg sublingual Q5M PRN (Reason: chest pain) Qty: 30 0RF Rx Instructions: do not exceed 3 doses per episode pregabalin 300 mg capsule 300 mg PO BID Qty: 60 2RF tizanidine 4 mg tablet 4 mg PO Q6H PRN (Reason: muscle spasticity) Qty: 20 0RF Rx Instructions: do not exceed 3 doses per 24 hrs acetaminophen-codeine 300-60 mg tablet 1 tab PO Q8H PRN (Reason: pain) Qty: 90 0RF metolazone 2.5 mg tablet 2.5 mg PO DAILY PRN (Reason: Edema) atorvastatin 40 mg tablet 40 mg PO DAILY famotidine 40 mg tablet 40 mg PO BID metformin 850 mg tablet 850 mg PO DAILY rifabutin 150 mg capsule 300 mg PO DAILY aspirin 81 mg tablet,delayed release (DR/EC) 81 mg PO DAILY fenofibrate 160 mg tablet 160 mg PO DAILY Trulicity 1.5 mg/0.5 mL pen injector 1.5 mg SUBCUT DAILY Rx Instructions: on Thursday Entresto 24-26 mg tablet 1 tab PO BID Rx Instructions: TAKE ONE TABLET BY MOUTH TWICE DAILY Changed furosemide 20 mg tablet 40 mg PO DAILY 30 Days Qty: 30 0RF Eliquis 5 mg tablet 2.5 mg PO BID 30 Days Qty: 30 0RF Held indomethacin 75 mg capsule, extended release 75 mg PO BID Qty: 30 0RF Hold Instructions: Resume on 09/29/23. resume after follow up with cardiology No Action (DME) diabetic shoes with inserts See Rx Instructions .Route .MEDSUPPLY Qty: 1 0RF Rx Instructions: As directed (DME) o2 at 3L per nasal cannula See Rx Instructions .Route .MEDSUPPLY Qty: 1 0RF Rx Instructions: Room air O2 sats were 83. After 3L O2 went up to 90's however when walking still at 89 on 3 L O2. (DME) Diabetic shoes with inserts See Rx Instructions .Route .MEDSUPPLY Qty: 1 0RF Rx Instructions: As directed (DME) Blood pressure cuff and machine See Rx Instructions .Route .MEDSUPPLY Qty: 1 0RF Rx Instructions: As directed Discharge Orders: Discharge Order (Routine); Ordered 09/21/23 Ordered By: Lise Lindsay Referrals: Diana Butcher MD [Primary Care Provider] - Elaine Gaytan FNP [Nurse Practitioner] - 1 week Discharge Diet: Usual diet Discharge Activity: Resume usual activity Patient Instructions: Opioid Safety Discharge Attestations Time Spent in Discharge Care*: greater than 30 min Quality Metrics Clinical Quality Measures [ No reported AMI, CVA or VTE this stay] Coding Level of Care Code Acute Code for Chg Fwd Diagnoses Essential hypertension I10 Hypertension type: essential hypertension Hx of heart surgery Z98.890 History of cardiac pacemaker Z95.0 Nonischemic cardiomyopathy I42.8 Systolic congestive heart failure with reduced left ventricular function, NYHA class 4 I50.20 Acute on chronic heart failure I50.9 Ascending aortic aneurysm I71.21 Atrial fibrillation I48.91 Presence of permanent cardiac pacemaker Z95.0 Acute on chronic congestive heart failure I50.9 Heart failure type: unspecified Anticoagulation adequate with anticoagulant therapy Z79.01 Pulmonary HTN I27.20 Type 2 diabetes mellitus E11.9 Obesity E66.9 Chronic kidney disease N18.9
[2023-09-21 11:36] VITALS: BP 115/79
--- NOTE | 2023-09-21 11:57 | PC.NURSE ---
Attempted to go over d/c instructions with the family as the pt wasn't paying attention and the family.... unfortunately, wasn't paying attention to anything other than getting the pt dressed and gone. Attempted to go over medication changes, CHF stoplight and follow up appointtments needing to be made but the family instead just took the paperwork from me and placed in the pt's clothes bag.
--- NOTE | 2023-09-21 12:23 | PC.NURSE ---
Discharge Note Patient discharged to [home] via [w/c to POV] accompanied by [family]. Discharge instructions reviewed with patient and/or product sales representative. Mobile pharmacy medications and/or prescriptions provided. Belongings/home medications returned.
== END 2023-09-21 12:05 | disposition home or self-care (01) | DRG 291 ==
LOC: ER 18:53 → CSU 20:09
PROVIDERS: Family Medicine; Internal Medicine; Admitting Provider Internal Medicine; Emergency Provider Emergency Medicine; PCP Family Medicine; Visit Provider Student in an Organized Health Care Education/Training Program
DX: I13.0 Hypertensive heart and chronic kidney disease with heart failure and stage 1 through stage 4 chronic kidney disease, or unspecified chronic kidney disease (principal); I50.43 Acute on chronic combined systolic (congestive) and diastolic (congestive) heart failure; J96.01 Acute respiratory failure with hypoxia; N17.9 Acute kidney failure, unspecified; D59.4 Other nonautoimmune hemolytic anemias; E11.22 Type 2 diabetes mellitus with diabetic chronic kidney disease; N18.9 Chronic kidney disease, unspecified; Z79.85 Long-term (current) use of injectable non-insulin antidiabetic drugs; Z79.84 Long term (current) use of oral hypoglycemic drugs; Z99.81 Dependence on supplemental oxygen; I71.21 Aneurysm of the ascending aorta, without rupture; Z95.3 Presence of xenogenic heart valve; E78.5 Hyperlipidemia, unspecified; K76.1 Chronic passive congestion of liver; I48.91 Unspecified atrial fibrillation; Z79.01 Long term (current) use of anticoagulants; M10.071 Idiopathic gout, right ankle and foot; M51.37 Other intervertebral disc degeneration, lumbosacral region; Z95.0 Presence of cardiac pacemaker; I42.8 Other cardiomyopathies; R04.0 Epistaxis; R45.1 Restlessness and agitation; R41.0 Disorientation, unspecified
CPT/HCPCS: 36415; 36416; 36600; 51798; 70450; 70496; 70498; 71045; 71275; 72125; 72128; 72131; 73620; 74176; 76705; 76770; 80048; 80051; 80053; 80061; 80074; 80306; 80307; 81001; 82140; 82330; 82436; 82607; 82803; 82805; 82962; 83036; 83605; 83735; 83880; 84100; 84145; 84300; 84443; 84484; 84550; 85025; 85049; 85378; 85610; 85651; 85730; 86140; 86611; 86618; 86622; 86638; 86666; 86705; 86706; 86709; 86757; 86803; 87040; 87077; 87086; 87186; 87340; 87449; 87486; 87581; 87633; 87635; 87801; 87806; 90471; 90686; 93005; 93306; 94660; 94664; 94760; 96365; 96367; 96372; 96374; 96376; 97110; 97116; 97161; 97165; 97166; 97530; 97535; 99285; A4570; C9113; G0103; J0131; J0696; J1630; J1644; J1650; J1815; J1940; J2020; J2060; J2543; J2930; J3370; J3490; J7040; J7512; P9046; Q3014; Q9967

== ENCOUNTER 2023-09-22 17:44 | Inpatient (IN) | payer MEDICARE, MEDICAID, SELFPAY ==
[2023-09-22 17:45] VITALS: BP 126/80; PULSE 70; RESP 18; TEMP 36.9; O2SAT 96; BMI 40.6
--- NOTE | 2023-09-22 17:46 | XRR_ITS ---
PROCEDURE INFORMATION: Exam: XR Chest Exam date and time: 09/22/2023 6:09 PM Age: 68 years old Clinical indication: Other: CVA; Prior surgery; Surgery date: 6+ months; Surgery type: Open heart pacer TECHNIQUE: Imaging protocol: Radiologic exam of the chest. Views: 1 view. COMPARISON: CR XR chest 1V portable [id number] 09/17/2023 4:32 PM FINDINGS: Tubes, catheters and devices: Two lead pacer device noted in the left chest wall. Lungs: Unremarkable. No consolidation. Pleural spaces: Unremarkable. No pleural effusion. No pneumothorax. Heart/Mediastinum: Similar moderate cardiomegaly. Cardiac valve replacement noted. Bones/joints: Sternotomy wires noted. Visualized osseous structures are intact. XR/XR chest 1V portable [id number] IMPRESSION: Similar moderate cardiomegaly. No acute findings.
--- NOTE | 2023-09-22 17:46 | CTR_ITS ---
PROCEDURE INFORMATION: Exam: CTA Head Without And With Contrast, Arteriography Exam date and time: 09/22/2023 5:48 PM Age: 68 years old Clinical indication: Stroke-like symptoms; Speech disturbance; Additional info: CVA TECHNIQUE: Imaging protocol: Computed tomographic angiography of the head without and with contrast. Exam focused on the arteries. 3D rendering (Not supervised by radiologist): MIP and/or 3D reconstructed images were created by the technologist. Radiation optimization: All CT scans at this facility use at least one of these dose optimization techniques: automated exposure control; mA and/or kV adjustment per patient size (includes targeted exams where dose is matched to clinical indication); or iterative reconstruction. Contrast material: OMNI 350; Contrast volume: 100 ml; Contrast route: INTRAVENOUS (IV); Other technique: STROKE PROTOCOL was implemented. COMPARISON: CT head wo con* [id number] 09/19/2023 2:17 PM RADIATION DOSE METRICS: Total DLP (mGy-cm): 1551 FINDINGS: ANTERIOR CIRCULATION: Right internal carotid artery: Intracranial segment is patent with no significant stenosis or occlusion. No aneurysm. Right middle cerebral artery: No occlusion or significant stenosis. No aneurysm. Right anterior cerebral artery: No occlusion or significant stenosis. No aneurysm. Left internal carotid artery: Intracranial segment is patent with no significant stenosis. No aneurysm. Left middle cerebral artery: No occlusion or significant stenosis. No aneurysm. Left anterior cerebral artery: No occlusion or significant stenosis. No aneurysm. POSTERIOR CIRCULATION: Right vertebral artery: No occlusion or significant stenosis. No aneurysm. Left vertebral artery: No occlusion or significant stenosis. No aneurysm. Basilar artery: No occlusion or significant stenosis. No aneurysm. Right posterior cerebral artery: No occlusion or significant stenosis. No aneurysm. Left posterior cerebral artery: No occlusion or significant stenosis. No aneurysm. HEAD: Brain: No hemorrhage. No edema. Moderate diffuse cerebral atrophy and sequela of chronic small vessel ischemic disease. Old lacunar infarcts noted in the left cerebellar hemisphere, right basal ganglia, and right thalamus. No mass effect. Cerebral ventricles: Normal. No ventriculomegaly. Bones/joints: Unremarkable. No acute fracture. Paranasal sinuses: Visualized sinuses are normal. No fluid levels. Mastoid air cells: Visualized mastoids are normal. No mastoid effusion. Soft tissues: Unremarkable. PROCEDURE INFORMATION: Exam: CTA Neck Without And With Contrast Exam date and time: 09/22/2023 5:48 PM Age: 68 years old Clinical indication: Stroke-like symptoms; Speech disturbance; Additional info: CVA TECHNIQUE: Imaging protocol: Computed tomographic angiography of the neck without and with contrast. Exam focused on the cervical segments of the vasculature. 3D rendering (Not supervised by radiologist): MIP and/or 3D reconstructed images were created by the technologist. Radiation optimization: All CT scans at this facility use at least one of these dose optimization techniques: automated exposure control; mA and/or kV adjustment per patient size (includes targeted exams where dose is matched to clinical indication); or iterative reconstruction. Contrast material: OMNI 350; Contrast volume: 100 ml; Contrast route: INTRAVENOUS (IV); COMPARISON: CT cervical spin wo con* [id number] 12/25/2022 3:50 PM RADIATION DOSE METRICS: Total DLP (mGy-cm): 1551 FINDINGS: Right common carotid artery: No stenosis. No dissection or occlusion. Right internal carotid artery: No stenosis of the extracranial segment. No dissection or occlusion. Right external carotid artery: No occlusion or stenosis of the origin. Left common carotid artery: No stenosis. No dissection or occlusion. Left internal carotid artery: No stenosis of the extracranial segment. No dissection or occlusion. Left external carotid artery: No occlusion or stenosis of the origin. Right vertebral artery: No stenosis. No dissection or occlusion. Left vertebral artery: No stenosis. No dissection or occlusion. Soft tissues: Normal. No significant soft tissue swelling. Bones/joints: No acute fracture. CT/CT angio headneck* [id number] IMPRESSION: No large vessel occlusion. ASSESSMENT: ASPECTS (Domitila Stroke Program Early CT Score) is 10. IMPRESSION: No stenosis or occlusion. REFERENCES: NASCET CRITERIA. The degree of stenosis in the cervical segment of the internal carotid artery is based on NASCET criteria. Normal is no stenosis. Mild is less than 50% stenosis. Moderate is 50-69% stenosis. Severe is 70% to 99% stenosis. Total occlusion is no detectable patent lumen.
[2023-09-22] MEDS: iohexol 350 mg/mL 500 mL Btl (per mL) IV (18:01)
--- NOTE | 2023-09-22 18:04 | ECG_ITS ---
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 Measurements Intervals [place] Rate: 70 P: 0 AK: 0 QRS: 120 QRSD: 185 T: 107 QT: 437 QTc: 472 Interpretive Statements ELECTRONIC VENTRICULAR PACEMAKER ABNORMAL RHYTHM ECG Compared to ECG 09/19/2023 15:20:04 No significant changes Electronically Signed On 09-22-2023 19:56:35 MONOTYPE CASTER by Honorio Scott M.D. [id number]
--- NOTE | 2023-09-22 18:17 | ED_ITS ---
HPI - Neuro Symptoms/Deficit 2 General: Chief Complaint: Neuro Symptoms/Deficit Stated Complaint: stroke like symptoms Time Seen by Provider: 09/22/23 18:05 History of Present Illness: Patient reports to the ER today by EMS with complaints of strokelike symptoms. EMS related that the patient had slurred speech, right-sided facial droop, left arm droop and tremors. Patient was just discharged from the hospital yesterday for acute on chronic respiratory failure and fluid overload. It is noted the patient always has a slurring of his speech per nursing. Patient's only complaint is just that he feels worse overall than yesterday and he thinks it may let him out of the hospital too soon. Quick neuroexam did not show any focal neurologic localizing signs except possible minimal left facial droop different than the right facial droop that EMS reported. Patient is on Eliquis. Patient's family says he has increased weakness since being discharged to the point that he is not able to walk. That he also has had increasing tremors since then. Patient is alert and oriented to name and date of and month but not year location or age. Review of Systems 2 General: Reports: 10 or more systems reviewed and unremarkable except in HPI and below PFSH ED 2 PFSH: Medical History Confusion Epistaxis Pulmonary HTN Anticoagulation adequate with anticoagulant therapy Nonischemic cardiomyopathy Enrolled in chronic care management Atrial fibrillation Pneumonia Acute and chronic respiratory failure with hypoxia Erectile dysfunction Type 2 diabetes mellitus Chronic kidney disease Anemia Idiopathic gout, right ankle and foot Mixed hyperlipidemia Nonrheumatic aortic (valve) stenosis DDD (degenerative disc disease), lumbosacral HTN (hypertension) Surgical History History of cardiac pacemaker Hx of arthroscopy of left knee Hx of tooth extraction Hx of heart surgery (2017) Aortic valve replacement and aneurysm repair Family History Mother CAD (coronary artery disease) Brother Cancer Other Hypertension Denies family history of Diabetes Clotting disorder Dementia Chronic kidney disease (CKD) Suicide Anesthesia complication Bleeding disorder Lung disease Stroke Social History Smoking and tobacco/nicotine status: never used tobacco/nicotine Second hand smoke exposure: No Alcohol intake: current Alcohol intake frequency: holidays/special occasions only Substance/Drug Use: never Adopted: No Caregiver/support person: Yes (spouse) Lives independently: Yes Household members: spouse and children Housing: House Marital status: Number of children: 3 Number of grandchildren: 3 Highest education level completed: 6th Grade service: No Current occupational status: disabled Pets and animals: Yes Current gender identity: Male Special pola needs: No Agree to transfusion: Yes Physical Exam 2 Const: COMMON NORMALS: no acute distress, average body habitus, patient oriented x3, no limitations, healthy appearing, alert and well nourished HENMT: COMMON NORMALS: normocephalic, atraumatic, hearing grossly normal bilaterally, external ears normal, Normal external nose present, moist oral mucous membranes and oropharynx normal HEAD & SCALP: normocephalic and atraumatic NOSE: Normal external nose present EXTERNAL EAR: Yes external ears normal Eye: COMMON NORMALS: Equal, round and reactive pupils present, EOMs intact bilaterally, conjunctivae normal and no scleral icterus CONJUNCTIVA: Yes conjunctivae normal PUPIL: Yes Equal, round and reactive pupils present Neck/C-Spine: COMMON NORMALS: full ROM, no lymphadenopathy, supple, no meningeal signs, no JVD and Thyroid normal THYROID: Thyroid normal Chest: COMMONS NORMALS: normal inspection of the chest and normal palpation of entire chest wall Resp: COMMON NORMALS: normal respiratory effort, No retractions, No use of accessory muscles and clear to auscultation bilaterally AUSCULTATION: clear to auscultation bilaterally Cardio: COMMON NORMALS: no JVD, regular rate, regular rhythm, S1 normal heart sound present, S2 normal heart sound present, No gallops present (Cardio), No clicks present (Cardio), No murmurs present (Cardio) and No rub (Cardio) R ATE: regular rate RHYTHM: regular rhythm HEART SOUNDS: S1 normal heart sound present and S2 normal heart sound present GI: COMMON NORMALS: Normal to inspection, nondistended, normoactive bowel sounds present, Soft to palpation, non-tender, No hepatosplenomegaly present and no masses PALPATION: Yes Soft to palpation and Yes No hepatosplenomegaly present Extremity: NARRATIVE EXTREMITY EXAM: 1+ edema bilateral lower extremities Neuro: COMMON NORMALS: patient oriented x3 SENSORIUM/ORIENTATION: Yes alert MENINGEAL SIGNS: Yes no meningeal signs OTHER: Gross motor neuroexam possibly 1 secondary to minimal left-sided facial droop Course 2 Vital Signs: Vital signs: Vital Signs Temperature 98.4 F 09/22/23 17:45 Pulse Rate 70 09/22/23 20:53 Respiratory Rate 16 09/22/23 20:53 Blood Pressure 103/56 09/22/23 20:53 Pulse Oximetry 94 09/22/23 20:53 Oxygen Delivery Me thod Nasal Cannula 09/22/23 20:53 Oxygen Flow Rate 3 09/22/23 20:53 MDM - Neuro Symptoms/Deficit Medical Decision Making Patient workup included lab work urinalysis chest x-ray head and neck CTA, chest x-ray no acute changes, head neck CT no large vessel occlusion, lab work essentially stable or improved other than BUN and creatinine slightly increasing to 55/2.8. ABG will be obtained which is pending. Dr. Dodge was consulted for further evaluation and treatment. We will place the patient in [facility] observation secondary to altered mental status and generalized weakness. Differential Diagnosis Likely cerebrovascular accident and transient cerebral ischemia; Unlikely carpal tunnel syndrome, convulsions, delirium, subarachnoid hemorrhage, peripheral neuropathy or multiple sclerosis Medical Records I reviewed the patient's medical records. Lab Data I reviewed the patient's lab results. 09/22/23 18:21 09/22/23 18:21 Radiology Impressions Chest X-Ray 09/22/23 17:46 IMPRESSION: Similar moderate cardiomegaly. No acute findings. Head/Neck CTA 09/22/23 17:46 IMPRESSION: No large vessel occlusion. ASSESSMENT: ASPECTS (Domitila Stroke Program Early CT Score) is 10. IMPRESSION: No stenosis or occlusion. REFERENCES: NASCET CRITERIA. The degree of stenosis in the cervical segment of the internal carotid artery is based on NASCET criteria. Normal is no stenosis. Mild is less than 50% stenosis. Moderate is 50-69% stenosis. Severe is 70% to 99% stenosis. Total occlusion is no detectable patent lumen. Laboratory Results WBC 8.02 10^3/uL (3.29-11.43) 09/22/23 18:21 RBC 3.50 10^6/uL (3.85-5.65) L 09/22/23 18:21 Hgb 11.10 g/dL (11.27-16.99) L 09/22/23 18:21 Hct 36.0 % (37-53) L 09/22/23 18:21 MCV 102.9 fl (82-101) H 09/22/23 18:21 MCH 31.7 pg (27-33) 09/22/23 18:21 MCHC 30.8 g/dL (30-55) 09/22/23 18:21 RDW 14.6 % (12.1-15.1) 09/22/23 18:21 Plt Count 125 10^3/cmm (157-399) L 09/22/23 18:21 MPV 11.8 fL (7.4-10.4) H 09/22/23 18:21 Neut % (Auto) 72.2 % 09/22/23 18:21 Lymph % (Auto) 12.7 % 09/22/23 18:21 Nance % (Auto) 14.3 % 09/22/23 18:21 Eos % (Auto) 0.2 % 09/22/23 18:21 Baso % (Auto) 0.2 % 09/22/23 18:21 Neut # (Auto) 5.78 10^3/uL (1.8-7.7) 09/22/23 18:21 Lymph # (Auto) 1.0 10^3/uL (0.8-4.8) 09/22/23 18:21 Nance # (Auto) 1.2 10^3/uL (0.2-0.9) H 09/22/23 18:21 Eos # (Auto) 0.0 10^3/uL (0.0-0.8) 09/22/23 18:21 Baso # (Auto) 0.0 10^3/uL (0.0-0.1) 09/22/23 18:21 Nucleated RBC % (auto) 0 % 09/22/23 18:21 Nucleated RBCs # 0.0 /100WBC 09/22/23 18:21 PT 17.20 SECONDS (12.1-14.9) H 09/22/23 18:21 INR 1.36 (0.8-1.2) H 09/22/23 18:21 APTT 33.7 SECONDS (23.9-36.7) 09/22/23 18:21 Sodium 135 mmol/L (136-145) L 09/22/23 18:21 Potassium 4.0 mmol/L (3.5-5.1) 09/22/23 18:21 Chloride 95 mmol/L (98-107) L 09/22/23 18:21 Carbon Dioxide 29 mmol/L (22-29) 09/22/23 18:21 Anion Gap 15.0 (5-19) 09/22/23 18:21 BUN 55 mg/dL (8-23) H 09/22/23 18:21 Creatinine 2.8 mg/dL (0.7-1.2) H 09/22/23 18:21 GFR Calculation 22.8 mL/min (90-130) L 09/22/23 18:21 Glucose 113 mg/dL (65-115) 09/22/23 18:21 Calculated Osmolality 296 mOsm/kg (285-295) H 09/22/23 18:21 Calcium 8.2 mg/dL (8.5-10.5) L 09/22/23 18:21 Total Bilirubin 1.1 mg/dL (0.15-1.2) 09/22/23 18:21 AST 65 U/L (0-40) H 09/22/23 18:21 ALT 141 U/L (0-41) H 09/22/23 18:21 Alkaline Phosphatase 30 U/L (40-130) L 09/22/23 18:21 Total Protein 7.7 g/dL (6.6-8.7) 09/22/23 18:21 Albumin 3.2 g/dL (3.5-5.2) L 09/22/23 18:21 Globulin 4.5 g/dL (1.3-4.6) 09/22/23 18:21 Urine Color Suzi (Yellow) 09/22/23 19:05 Urine Appearance Clear (CLEAR) 09/22/23 19:05 Urine pH 5 (5-7) 09/22/23 19:05 Ur Specific [place] 1.020 (1.005-1.030) 09/22/23 19:05 Urine Protein Neg (Negative) 09/22/23 19:05 Urine Glucose (UA) Norm (Normal) 09/22/23 19:05 Urine Ketones Negative (Negative) 09/22/23 19:05 Urine Blood 3+ (Negative) H 09/22/23 19:05 Urine Nitrate Negative (Negative) 09/22/23 19:05 Urine Bilirubin Neg (Negative) 09/22/23 19:05 Urine Urobilinogen 1 mg/dL (Negative) H 09/22/23 19:05 Ur Leukocyte Esterase Negative (Negative) 09/22/23 19:05 Urine RBC 15-25 /hpf (0-2) H 09/22/23 19:05 Urine WBC 0-4 /hpf (0-5) H 09/22/23 19:05 Ur Squamous Epith Cells 0-4 /hpf (0-5) H 09/22/23 19:05 Amorphous Sediment Not Reportable 09/22/23 19:05 Urine Bacteria Trace /hpf (NONE) 09/22/23 19:05 Urine Mucus None /hpf 09/22/23 19:05 Urine Yeast Trace /hpf 09/22/23 19:05 Urine Opiates Screen Negative ng/mL (Negative) 09/22/23 19:05 Ur Barbiturates Screen Negative ng/mL (Negative) 09/22/23 19:05 Ur Phencyclidine Scrn Negative ng/mL (Negative) 09/22/23 19:05 Ur Amphetamines Screen Negative ng/mL (Negative) 09/22/23 19:05 U Benzodiazepines Scrn Negative ng/mL (Negative) 09/22/23 19:05 Urine Cocaine Screen Negative ng/mL (Negative) 09/22/23 19:05 U Marijuana (THC) Screen Negative ng/mL (Negative) 09/22/23 19:05 Ethyl Alcohol < 10 mg/dL (0-10) 09/22/23 18:21 All radiology interpretation(s) finalized by discharge Discharge Plan Discharge Patient Disposition: Placed in Observation Clinical Impression: Acute alteration in mental status, Generalized muscle weakness Coding Level of Care Code ED Paediatric Surgeon for Janelle Medina
[2023-09-22 18:34] VITALS: BP 126/80; PULSE 70; RESP 18; O2SAT 94
[2023-09-22 18:36] LABS: Basophils % 0.2 %; Eosinophils % 0.2 %; Lymphocytes % 12.7 %; Mean Corpuscular HGB Conc 30.8 g/dL (30-55); Mean Corpuscular Hemoglobin 31.7 pg (27-33); Mean Corpuscular Volume 102.9 fl (82-101); Mean Platelet Volume 11.8 fL (7.4-10.4); Monocytes # 1.2 10^3/uL (0.2-0.9); Monocytes % 14.3 %; Neutrophils # 5.78 10^3/uL (1.8-7.7); Neutrophils % 72.2 %; Nucleated Red Blood Cells % 0 %; Platelet Count 125 10^3/cmm (157-399); Red Cell Distribution Width 14.6 % (12.1-15.1); White Blood Count 8.02 10^3/uL (3.29-11.43)
[2023-09-22 18:47] LABS: INR 1.36 (0.8-1.2); Partial Thromboplastin Time 33.7 SECONDS (23.9-36.7)
[2023-09-22 18:52] LABS: Alanine Aminotransferase 141 U/L (0-41); Albumin Level 3.2 g/dL (3.5-5.2); Alkaline Phosphatase 30 U/L (40-130); Aspartate Amino Transferase 65 U/L (0-40); Blood Urea Nitrogen 55 mg/dL (8-23); Calcium 8.2 mg/dL (8.5-10.5); Carbon Dioxide 29 mmol/L (22-29); Chloride 95 mmol/L (98-107); Globulin 4.5 g/dL (1.3-4.6); Glomerular Filtration Rate 22.8 mL/min (90-130); Glucose 113 mg/dL (65-115); Osmolality Calculated 296 mOsm/kg (285-295); Sodium 135 mmol/L (136-145); Total Bilirubin 1.1 mg/dL (0.15-1.2); Total Protein 7.7 g/dL (6.6-8.7)
[2023-09-22 18:53] LABS: Alcohol Level < 10 mg/dL (0-10)
[2023-09-22 19:41] LABS: Urine Appearance Clear (CLEAR); Urine Color Amber (Yellow); pH Urine 5 (5-7)
[2023-09-22 19:42] LABS: Add Urine Microscopic? YES; Bilirubin Urine Neg (Negative); Blood Urine 3+ (Negative); Glucose Urine UA Norm (Normal); Ketones Urine Negative (Negative); Leukocyte Esterase Urine Negative (Negative); Nitrate Urine Negative (Negative); Protein Urine Neg (Negative); Urobilinogen Urine 1 mg/dL (Negative)
[2023-09-22 19:50] LABS: Amphetamines Screen Urine Negative (Negative); Barbiturates Screen Urine Negative (Negative); Benzodiazepines Screen Urine Negative (Negative); Cocaine Screen Urine Negative (Negative); Opiate Screen Urine Negative (Negative); PCP Screen Urine Negative (Negative); THC Screen Urine Negative (Negative)
[2023-09-22 20:04] LABS: Bacteria Urine TRACE /hpf; RBC Urine 15-25 /hpf (0-2); Squamous Epithelial Cell Urine 0-4 /hpf (0-5); WBC Urine 0-4 /hpf (0-5)
[2023-09-22 20:05] LABS: Add Urine Culture? Yes
[2023-09-22 20:53] VITALS: BP 103/56; PULSE 70; RESP 16; O2SAT 94
--- NOTE | 2023-09-22 20:54 | PC.NURSE ---
RN into room to assist pt with ambulation. Pt unable to sit up with difficulty. pt unable to stand up with assistance. MD notified.
[2023-09-22 21:58] LABS: ABG PH Result 7.41 (7.35-7.45); Arterial Blood Gas Hematocrit 32.8 % (42-52); Base Excess ABG 5.8 mmol/L (-2.0-2.0); Blood Gas Allen Test Pos; Blood Gas Sample Site Radial, right; Blood Gas Sample Type Arterial; Carboxyhemoglobin 1.9 %THgb (0.4-20.1); HCO3 ABG 31.4 mmol/L (22-26); HGB O2 Sat 95.8 % (95-100); Ionized Calcium Level - ABG 1.1 mmol/L (1.1-1.4); Methemoglobin 0.5 % (0.4-1.5); Oxygen Device ROOM AIR; Oxygen Saturation ABG 98.1; PO2 ABG 93.3 mmHg (80.0-100.0); Total Hemoglobin 10.7 g/dL (14-18)
--- NOTE | 2023-09-22 22:50 | XRR_ITS ---
PROCEDURE INFORMATION: Exam: XR Left Foot Exam date and time: 09/22/2023 11:45 PM Age: 68 years old Clinical indication: Foot; Left; Patient HX: Nki, pain to bilateral both feet plantar surface TECHNIQUE: Imaging protocol: Radiologic exam of the left foot. Views: 1 or 2 views. COMPARISON: No relevant prior studies available. FINDINGS: Bones/joints: No acute fracture. Soft tissues: Soft tissue swelling over the dorsal aspect forefoot. XR/XR foot LT 2V [id number] IMPRESSION: 1. Soft tissue swelling over the dorsal aspect forefoot. 2. No acute fracture.
--- NOTE | 2023-09-22 22:50 | XRR_ITS ---
PROCEDURE INFORMATION: Exam: XR Right Foot Exam date and time: 09/22/2023 11:42 PM Age: 68 years old Clinical indication: Foot; Right; Patient HX: Nki, pain to bilateral both feet plantar surface TECHNIQUE: Imaging protocol: Radiologic exam of the right foot. Views: 1 or 2 views. COMPARISON: CR XR ankle RT min 3V* [id number] 03/07/2020 10:09 AM FINDINGS: Bones/joints: Moderate to severe degenerative changes at the 1st metatarsophalangeal joint. No acute fracture. Soft tissues: Normal. XR/XR foot RT 2V [id number] IMPRESSION: 1. No acute fracture. 2. Moderate to severe degenerative changes at the 1st metatarsophalangeal joint.
--- NOTE | 2023-09-22 22:56 | PC.NURSE ---
pt cleaned, placed in gown, and given a sandwich to eat at this time.
--- NOTE | 2023-09-22 22:59 | ECG_ITS ---
[facility] Test Date: 2023-09-22 Pat Name: Pawan Marcum Department: Room: 267 Gender: Male Oyster Floater: : 1955 Requested By: Josias Matthews Order Number: [id number] Bebe MD: Honorio Scott M.D. Measurements Intervals [place] Rate: 70 P: 0 LA: 0 QRS: -69 QRSD: 199 T: 119 QT: 464 QTc: 502 Interpretive Statements ELECTRONIC VENTRICULAR PACEMAKER ABNORMAL RHYTHM ECG Compared to ECG 09/22/2023 18:04:44 No significant changes Electronically Signed On 09-23-2023 21:37:09 INDUSTRIAL MAINTENANCE MECHANIC by Honorio Scott M.D. [id number]
--- NOTE | 2023-09-22 23:04 | P.HP_ITS ---
Providers/Chief Complaint 2 Admitting Physician: Josias Matthews MD Primary Care Provider: Diana Butcher MD Chief Complaint: stroke like symptoms History of Present Illness Pawan Marcum is a 68 year old male with a past medical history of [id number] type 2 diabetes mellitus, history of aortic aneurysm repair, history of aortic valve stenosis with replacement bioprosthetic valve, history of pacemaker placement, systolic diastolic CHF exacerbation, history of Q fever, cat scratch fever, atrial fibrillation on Eliquis therapy recent hospitalization for systolic diastolic CHF exacerbation, NSTEMI, who presents [facility] due to increased confusion, difficulty ambulating, generalized weakness and bilateral foot pain. Currently patient is alert to person, to place, not to time, he can follow commands, can recognize at bedside, but does not know who the president is, does not know the year, can follow most commands, at bedside tells me that since getting home from the hospital and really for the last 2 to 3 weeks has been significantly more confused. This is not his normal self, also when he got home he has been having difficulty ambulating, no focal weakness but he has a lot of pain in both his feet and he has generalized weakness,no fevers, no chills, no cough, no dysuria, no back pain, no headache, no blurry vision, no nausea, vomiting, no slurring of her words no facial droop, no visual deficits, no focal weakness, just weakness in both legs, does have significant pain and point tenderness in bilateral feet, primarily in bilateral toes, complaints of acute swelling both feet Review of Systems 2 Const: Denies: fever(s) Card: Denies: chest pain Resp: Denies: dyspnea GI: Denies: abdominal pain : Denies: flank pain or difficulty urinating Musc: Denies: neck pain or back pain Skin/Breast: Denies: rash Neuro: Reports: weakness in extremities and behavioral changes; Denies: headache(s), numbness in extremities or dizziness Medications/Allergies Home Medications Medication Instructions Recorded Confirmed Last Taken Type diabetic shoes with inserts #1 ea 02/28/21 09/17/23 08/12/22 Rx Blood pressure cuff and machine #1 ea 06/27/22 09/17/23 08/12/22 Rx o2 at 3L per nasal cannula #1 ea 08/11/22 09/17/23 08/12/22 Rx nitroglycerin 0.3 mg sublingual 0.3 mg sublingual Q5M PRN chest 10/08/22 09/17/23 Unknown Rx tablet pain #30 tabs Diabetic shoes with inserts #1 ea 04/24/23 09/17/23 Unknown Rx indomethacin 75 mg 75 mg PO BID #30 caps 08/11/23 09/17/23 09/17/23 Rx capsule,extended release pregabalin 300 mg capsule 300 mg PO BID #60 caps 08/13/23 09/17/23 09/17/23 Rx tizanidine 4 mg tablet 4 mg PO Q6H PRN muscle spasticity 09/03/23 09/17/23 Unknown Rx #20 tabs acetaminophen 300 mg-codeine 60 mg 1 tab PO Q8H PRN pain #90 tabs 09/16/23 09/17/23 Unknown Rx tablet aspirin 81 mg tablet,delayed 81 mg PO DAILY 09/17/23 09/17/23 09/17/23 History release atorvastatin 40 mg tablet 40 mg PO DAILY 09/17/23 09/17/23 09/17/23 History dulaglutide 1.5 mg/0.5 mL 1.5 mg SUBCUT DAILY 09/17/23 09/17/23 09/15/23 History subcutaneous pen injector (Trulicity) famotidine 40 mg tablet 40 mg PO BID 09/17/23 09/17/23 09/17/23 History fenofibrate 160 mg tablet 160 mg PO DAILY 09/17/23 09/17/23 09/17/23 History metformin 850 mg tablet 850 mg PO DAILY 09/17/23 09/17/23 Unknown History metolazone 2.5 mg tablet 2.5 mg PO DAILY PRN Edema 09/17/23 09/17/23 Unknown History rifabutin 150 mg capsule 300 mg PO DAILY 09/17/23 09/17/23 09/17/23 History sacubitril 24 mg-valsartan 26 mg 1 tab PO BID 09/17/23 09/17/23 09/17/23 History tablet (Entresto) apixaban 5 mg tablet (Eliquis) 2.5 mg (1/2 x 5 mg) PO BID 30 days 09/21/23 09/17/23 09/17/23 Rx #30 tabs furosemide 20 mg tablet 40 mg (2 x 20 mg) PO DAILY EDEMA 09/21/23 09/17/23 09/17/23 Rx 30 days #30 tabs Allergies Allergy/AdvReac Type Severity Reaction Status Date / Time fentanyl Allergy Unknown Verified 09/22/23 22:56 lisinopril AdvReac Mild Coughing Verified 09/17/23 14:42 PFSH Acute 2 PFSH: Medical History Confusion Epistaxis Pulmonary HTN Anticoagulation adequate with anticoagulant therapy Nonischemic cardiomyopathy Enrolled in chronic care management Atrial fibrillation Pneumonia Acute and chronic respiratory failure with hypoxia Erectile dysfunction Type 2 diabetes mellitus Chronic kidney disease Anemia Idiopathic gout, right ankle and foot Mixed hyperlipidemia Nonrheumatic aortic (valve) stenosis DDD (degenerative disc disease), lumbosacral HTN (hypertension) Surgical History History of cardiac pacemaker Hx of arthroscopy of left knee Hx of tooth extraction Hx of heart surgery (2017) Aortic valve replacement and aneurysm repair Family History Mother CAD (coronary artery disease) Brother Cancer Other Hypertension Denies family history of Diabetes Clotting disorder Dementia Chronic kidney disease (CKD) Suicide Anesthesia complication Bleeding disorder Lung disease Stroke Social History Smoking and tobacco/nicotine status: never used tobacco/nicotine Second hand smoke exposure: No Alcohol intake: current Alcohol intake frequency: holidays/special occasions only Substance/Drug Use: never Adopted: No Caregiver/support person: Yes (spouse) Lives independently: Yes Household members: spouse and children Housing: House Marital status: Number of children: 3 Number of grandchildren: 3 Highest education level completed: 6th Grade service: No Current occupational status: disabled Pets and animals: Yes Current gender identity: Male Special pola needs: No Agree to transfusion: Yes Vitals/I&O/Wt Last Vital Signs Temp 98.4 F 09/22/23 17:45 Pulse 70 09/22/23 20:53 Resp 16 09/22/23 20:53 BP 103/56 09/22/23 20:53 Pulse Ox 94 09/22/23 20:53 O2 Del Method Nasal Cannula 09/22/23 20:53 O2 Flow Rate 3 09/22/23 20:53 Weight last 48 hrs Weight 107.955 kg Weight 124.738 kg Physical Exam 2 Const: COMMON NORMALS: no acute distress HENMT: COMMON NORMALS: normocephalic HEAD & SCALP: normocephalic Eye: COMMON NORMALS: Equal, round and reactive pupils present and EOMs intact bilaterally Neck/C-Spine: COMMON NORMALS: no JVD Lymph: LYMPHATIC: no lymphadenopathy noted Resp: COMMON NORMALS: normal respiratory effort, No retractions, No use of accessory muscles and clear to auscultation bilaterally AUSCULTATION: clear to auscultation bilaterally Cardio: COMMON NORMALS: no JVD, regular rate, regular rhythm, S1 normal heart sound present and S2 normal heart sound present RATE: regular rate RHYTHM: regular rhythm HEART SOUNDS: S1 normal heart sound present and S2 normal heart sound present GI: COMMON NORMALS: Normal to inspection, nondistended, normoactive bowel sounds present, Soft to palpation and non-tender Extremity: COMMON NORMALS: no pedal edema Neuro: COMMON NORMALS: CN's II-XII intact bilaterally, moves all extremities and no focal motor deficits Psych: COMMON NORMALS: mental status grossly normal Data 09/22/23 18:21 09/22/23 18:21 A&P Assessment and plan (1) Acute encephalopathy: (2) Generalized weakness: (3) Bilateral foot pain: (4) Gout attack: (5) Type 2 diabetes mellitus: (6) Congestive heart failure: (7) HTN (hypertension): Qualifiers: Hypertension type: essential hypertension Qualified Code(s): I10 - Essential (primary) hypertension (8) Pulmonary HTN: (9) History of cardiac pacemaker: (10) Transaminitis: Plan Acute encephalopathy -Review of prior records -Patient was transferred from [facility] to [facility] 11/2022, with concerns for vegetation on aortic valve, infective endocarditis, for 1.8 cm pedunculated density on aortic valve, followed up with ID clinic through [facility] for Coxiella and Bartonella serologies -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, was managed with doxycycline and rifabutin -Documentation is not exactly clear, but was deemed not a surgical candidate for vegetation, after discussion with family -Patient denies any cat bites or dog bites -Here his head CTA was within normal limits -Review of his prior hospitalization, blood cultures within normal limits so far -Urine culture was positive for Enterococcus -UA during this hospitalization was relatively within normal limits -Chest x-ray within normal limits -Does have transaminitis Plan -Repeat blood cultures -Repeat urine culture -Has a ARUNA, will start on Zyvox for Enterococcus UTI -Will start on Rocephin given patient's evidence of thickened bioprosthetic valve, prior history of infective endocarditis -HIV, acute hep panel -Repeat Bartonella, and Coxiella serologies, started on doxycycline -Pro-Niels, CRP, sed rate -For now I will hold aspirin and Eliquis, just in case if his mentation does not improve by tomorrow, he might need a lumbar puncture -Cannot do an MRI given his pacemaker -Neurochecks, aspiration precautions -Echocardiogram during last hospitalization -CONCLUSIONS Technically limited quality echocardiogram. LV systolic function is moderate to severely reduced with EF of 30 to 35%. Grossly mildly hypokinetic. Left atrial dilation Right atrial dilation Mild mitral regurgitation Bioprosthetic aortic valve is thickened. DVI is abnormal and is 0.15. However Doppler signal is inadequate. Recommend further evaulation. Mean gradient across aortic valve of 13.3mmHg. 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 Cholelithiasis. Contracted gallbladder. 2. Moderate perihepatic ascites. 3. Dilated hepatic veins and intrahepatic IVC with pulsatile waveform in the main portal vein all findings suggestive of tricuspid regurgitation or right heart failure. -Likely transaminitis from right-sided heart failure Bilateral foot pain -History of gout -Started on Solu-Medrol followed by prednisone Type 2 diabetes mellitus, low-dose sliding scale Systolic diastolic CHF, hold off on Lasix given creatinine 2.8 and patient received contrast for CTA monitor urine output monitor creatinine ARUNA on CKD, history of CKD as below, monitor urine output monitor creatinine as patient received contrast with creatinine of 2.8 for a CTA History of PFO with right to left shunt History of bioprosthetic aortic valve, 29 mm, Magna Ease History of aortic aneurysm repair with 34 mm Hemashield graft in 08/19/2017 History of [employer] pacemaker for complete heart block and asystole History of CKD, 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, 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
[2023-09-22 23:21] LABS: Erythrocyte Sedimentation Rate 52 mm/hr (0-10)
[2023-09-22 23:38] LABS: Ammonia 32 umol/L (16-60)
[2023-09-22 23:43] LABS: Troponin(5th) Baseline 109 ng/L (0-15)
[2023-09-22 23:52] LABS: Procalcitonin 0.46 ng/mL (0-0.5); Thyroid Stimulating Hormone 1.58 uIU/mL (0.27-4.20)
--- NOTE | 2023-09-22 23:53 | CTR_ITS ---
PROCEDURE INFORMATION: Exam: CT Thoracic Spine Without Contrast Exam date and time: 09/23/2023 12:44 AM Age: 68 years old Clinical indication: Abnormal findings; Abnormal lab test; Other; Elevated esr; Additional info: Difficulty ambulating, elevated esr, TECHNIQUE: Imaging protocol: Computed tomography of the thoracic spine without contrast. Radiation optimization: All CT scans at this facility use at least one of these dose optimization techniques: automated exposure control; mA and/or kV adjustment per patient size (includes targeted exams where dose is matched to clinical indication); or iterative reconstruction. COMPARISON: CT cervical spin wo con* [id number] 09/23/2023 12:39 AM RADIATION DOSE METRICS: Total DLP (mGy-cm): 1499 FINDINGS: Tubes, catheters and devices: The ICD leads are partially imaged. Bones/joints: Diffuse osteopenia. Mild levocurvature of the thoracic spine. Mild exaggeration of the thoracic kyphosis in the upper thoracic spine. Mild osteoporotic compression deformities of the midthoracic spine. The vertebral body heights are otherwise maintained. No evidence of acute fractures. Schmorl's nodes noted at multiple levels. Decreased disc space heights are multiple levels. Soft tissues: Unremarkable. Vasculature: The thoracic aorta is tortuous and atherosclerotic. Aneurysmal dilation of the ascending thoracic aorta. Atherosclerotic disease of the descending thoracoabdominal aorta and its branches. Esophagus: There is a small hiatal hernia or patulous esophagus. Lungs: There are dependent opacities in the lungs, possibly atelectasis, pneumonia, or pulmonary edema. Heart: There is cardiomegaly and left atrial enlargement. Coronary arteries: There are atherosclerotic calcifications of the coronary arteries. CT/CT thoracic spin wo con* [id number] IMPRESSION: 1. No evidence of acute fracture or traumatic malalignment in the thoracic spine. 2. Multiple degenerative disc and joint disease as outlined. 3. If there is clinical concern, MRI of the thoracic spine could be obtained for further evaluation.
--- NOTE | 2023-09-22 23:53 | CTR_ITS ---
PROCEDURE INFORMATION: Exam: CT Lumbar Spine Without Contrast Exam date and time: 09/23/2023 12:48 AM Age: 68 years old Clinical indication: Abnormal findings; Abnormal lab test; Other; Elevated esr; Additional info: AMS, difficulty ambulating TECHNIQUE: Imaging protocol: Computed tomography of the lumbar spine without contrast. Radiation optimization: All CT scans at this facility use at least one of these dose optimization techniques: automated exposure control; mA and/or kV adjustment per patient size (includes targeted exams where dose is matched to clinical indication); or iterative reconstruction. COMPARISON: CT lumbar spine wo con* [id number] 05/26/2023 7:43 AM RADIATION DOSE METRICS: Total DLP (mGy-cm): 1304 FINDINGS: Bones/joints: Mild dextrocurvature of the lumbar spine. There is retrolisthesis of L4 on L5. There is retrolisthesis of L1 on L2. Disc bulges at multiple levels, worse at L4-L5. Vacuum disc phenomenon at L4-L5. Endplate irregularities at the upper aspect of L5. Vacuum disc phenomenon at T11-T12 and T10-T11, partially imaged. Additional disc bulges at L2-L3 and L3-L4 without high-grade spinal canal stenosis. Significantly reduced disc space height at L5-S1 with partial fusion. Multilevel facet arthropathy with the same degree of moderate spinal canal stenosis at multiple levels, worst at L4-L5 and L5-S1. The vertebral body heights are maintained. No evidence of acute fractures. There are degenerative changes of the SI joints. Vasculature: Atherosclerotic disease of the abdominal aorta and its branches. Soft tissues: Distended urinary bladder. CT/CT lumbar spine wo con* [id number] IMPRESSION: 1. No evidence of acute fracture or traumatic malalignment in the lumbar spine. 2. Multilevel degenerative disc and joint disease as detailed above. 3. If there is clinical concern for intracranial infection, an MRI of the lumbar spine without and with contrast could be obtained for further evaluation.
--- NOTE | 2023-09-22 23:53 | CTR_ITS ---
PROCEDURE INFORMATION: Exam: CT Cervical Spine Without Contrast Exam date and time: 09/23/2023 12:39 AM Age: 68 years old Clinical indication: Abnormal findings; Abnormal lab test; Other: Elevated esr; Additional info: Elevated esr, difficulty ambulating TECHNIQUE: Imaging protocol: Computed tomography of the cervical spine without contrast. Radiation optimization: All CT scans at this facility use at least one of these dose optimization techniques: automated exposure control; mA and/or kV adjustment per patient size (includes targeted exams where dose is matched to clinical indication); or iterative reconstruction. COMPARISON: CT cervical spin wo con* [id number] 12/25/2022 3:50 PM RADIATION DOSE METRICS: Total DLP (mGy-cm): 343.87 FINDINGS: Bones/joints: Gentle kyphosis of the cervical spine. Mild levocurvature of the cervical spine. The vertebral body heights are maintained. No evidence of acute fracture. Endplate erosive changes noted at C6-C7 and to a lesser extent C7-T1. Multilevel degenerative disc disease with disc bulges and disc osteophyte complexities, slightly prominent at C4-C5, C5-C6, C6-C7, and C7-T1. No high-grade spinal canal stenosis. Multilevel [id number] facet arthropathy. Multilevel moderate to advanced uncovertebral joint osteoarthritis with same degree of neural foramina stenosis at multiple levels. The patient is status post median sternotomy. Mild degenerative changes of the temporomandibular joints. Dental: The patient is edentulous. Lungs: Mild apical scarring in the lungs. Thyroid: Heterogeneous thyroid gland with a 1.6 cm hypodense nodule in the right thyroid lobe. A nonemergent thyroid ultrasound is recommended for further evaluation. Soft tissues: Atherosclerotic disease of the proximal arch vessels. CT/CT cervical spin wo con* [id number] IMPRESSION: 1. No evidence of acute fracture or traumatic malalignment in the cervical spine. 2. Multilevel degenerative disc and joint disease as outlined. 3. If there is clinical concern for spinal infection, MRI of the cervical spine without and with contrast could be obtained for further evaluation. 4. There is a 1.6 cm hypodense nodule in the right thyroid lobe. A nonemergent thyroid ultrasound is recommended for further evaluation. COMMENTS: Consistent with the [employer]'s Incidental Findings Committee white paper (J Am Ernie Radiol 2015): In patients aged 35 years and older with an incidental thyroid nodule equal to or greater than 1.[address], MRI or extrathyroidal US, further evaluation with dedicated thyroid US is recommended for patients with normal life expectancy and without comorbidities. For smaller nodules without suspicious features, no further evaluation or follow up is recommended.
[2023-09-23] VITALS (16 sets, daily range): BP systolic 98–122; BP diastolic 59–95; PULSE 68–82; RESP 16–22; TEMP 36.4–37; O2SAT 92–97
[2023-09-23 00:02] LABS: C Reactive Protein 94.7 mg/L (0.0-4.9); Uric Acid 11.2 mg/dL (3.4-7.0)
[2023-09-23 00:09] LABS: HIV 1 & 2 Antibody Non-Reactive (Non-Reactiv); HIV 1 & 2 Antigen Non-Reactive (Non-Reactiv)
[2023-09-23] MEDS: pantoprazole 40 mg SDV IVP ×2 (00:10→22:39)
[2023-09-23] MEDS: methylPREDNISolone sod succ 125 mg/2 mL INJ IVP (00:11)
[2023-09-23] MEDS: cefTRIAXone 1,000 MG in sodium chloride 0.9% (plus) 50 ML 100 MG IV (00:13)
[2023-09-23] MEDS: doxycycline 100 MG in sodium chloride 0.9% (plus) 100 ML IV ×2 (00:14→11:54)
[2023-09-23 00:23] LABS: Glucose Point of Care 213 mg/dL (70-110)
[2023-09-23 01:30] LABS: Hepatitis A Antibody IgM Non-Reactive (Nonreactive); Hepatitis B Core IgM Non-Reactive (Nonreactive); Hepatitis B Surface Antigen Non-Reactive (Nonreactive)
[2023-09-23 02:04] LABS: Adenovirus Not Detected (NOT DETECT); Chlamydia Pneumoniae Not Detected (NOT DETECT); Coronavirus 229E,HKU1,NL63,OC4 Not Detected (NOT DETECT); Human Metapneumovirus Not Detected (NOT DETECT); Human Rhinovirus/Enterovirus Not Detected (NOT DETECT); Influenza A Not Detected (NOT DETECT); Influenza A H1 Not Detected (NOT DETECT); Influenza A H1-2009 Not Detected (NOT DETECT); Influenza A H3 Not Detected (NOT DETECT); Influenza B Not Detected (NOT DETECT); Mycoplasma Pneumoniae Not Detected (NOT DETECT); Parainfluenza Virus Type 1 Not Detected (NOT DETECT); Parainfluenza Virus Type 2 Not Detected (NOT DETECT); Parainfluenza Virus Type 3 Not Detected (NOT DETECT); Parainfluenza Virus Type 4 Not Detected (NOT DETECT); Respiratory Syncytial Virus A Not Detected (NOT DETECT); Respiratory Syncytial Virus B Not Detected (NOT DETECT); SARS-COV-2 Not Detected (NOT DETECT)
[2023-09-23] MEDS: linezolid premix 600 MG/300 ML PREMIX 300 MG IV ×2 (02:09→15:43)
[2023-09-23 02:29] LABS: Troponin 5 2HR Delta -1.1 ABS# (0-10)
[2023-09-23 02:30] LABS: Troponin 5 2HR 107.9 ng/L (0-15)
[2023-09-23 02:48] LABS: Hepatitis C Virus Antibody Non-Reactive (Nonreactive)
[2023-09-23 05:29] LABS: Hematocrit 33.6 % (37-53); Lymphocytes # 0.4 10^3/uL (0.8-4.8); Lymphocytes % 6.4 %; Mean Corpuscular Hemoglobin 31.5 pg (27-33); Mean Corpuscular Volume 101.8 fl (82-101); Mean Platelet Volume 12.4 fL (7.4-10.4); Monocytes # 0.2 10^3/uL (0.2-0.9); Monocytes % 2.9 %; Neutrophils # 5.83 10^3/uL (1.8-7.7); Neutrophils % 90.4 %; Nucleated Red Blood Cells % 0 %; Platelet Count 112 10^3/cmm (157-399); Red Cell Distribution Width 14.6 % (12.1-15.1); White Blood Count 6.45 10^3/uL (3.29-11.43)
[2023-09-23 05:56] LABS: Alanine Aminotransferase 108 U/L (0-41); Albumin Level 3.1 g/dL (3.5-5.2); Alkaline Phosphatase 30 U/L (40-130); Anion Gap 13.3 (5-19); Aspartate Amino Transferase 54 U/L (0-40); Blood Urea Nitrogen 56 mg/dL (8-23); Calcium 8.6 mg/dL (8.5-10.5); Carbon Dioxide 29 mmol/L (22-29); Chloride 97 mmol/L (98-107); Globulin 3.7 g/dL (1.3-4.6); Glomerular Filtration Rate 24.8 mL/min (90-130); Glucose 215 mg/dL (65-115); Magnesium 2.1 mg/dL (1.7-2.3); Osmolality Calculated 302 mOsm/kg (285-295); Phosphorus 3.6 mg/dL (2.5-4.5); Potassium 4.3 mmol/L (3.5-5.1); Sodium 135 mmol/L (136-145); Total Bilirubin 1.3 mg/dL (0.15-1.2); Total Protein 6.8 g/dL (6.6-8.7)
[2023-09-23 07:12] LABS: Glucose Point of Care 194 mg/dL (70-110)
[2023-09-23] MEDS: atorvastatin 40 mg Tablet PO (09:02)
[2023-09-23] MEDS: sacubitril/valsartan 24-26 mg Tablet 1 EACH PO (09:02)
[2023-09-23] MEDS: pregabalin 100 mg Capsule 300 MG PO (09:02)
[2023-09-23] MEDS: predniSONE 20 mg Tablet 40 MG PO (09:02)
[2023-09-23] MEDS: insulin lispro 100 unit/1 mL SUBCUT ×3 (09:02→22:39)
[2023-09-23 11:31] LABS: Glucose Point of Care 286 mg/dL (70-110)
--- NOTE | 2023-09-23 13:11 | PC.OT ---
Pt seen for OT eval and sleeping soundly and unable to wake with family in the room; will attempt at later time.
--- NOTE | 2023-09-23 15:24 | PC.PT ---
attempted evaluation , pt not alert enough to participate. Spoke with nursing as pt's spouse concerned that he is not waking up
--- NOTE | 2023-09-23 15:50 | CTR_ITS ---
PROCEDURE INFORMATION: Exam: CT Abdomen And Pelvis Without Contrast Exam date and time: 09/23/2023 8:24 PM Age: 68 years old Clinical indication: Other: Evalute for hydronephrosis TECHNIQUE: Imaging protocol: Computed tomography of the abdomen and pelvis without contrast. Radiation optimization: All CT scans at this facility use at least one of these dose optimization techniques: automated exposure control; mA and/or kV adjustment per patient size (includes targeted exams where dose is matched to clinical indication); or iterative reconstruction. COMPARISON: CT chest abdpel w/*[id number] 12/25/2022 3:58 PM RADIATION DOSE METRICS: Total DLP (mGy-cm): 1207 FINDINGS: Lungs: Lung bases demonstrate scarring in the right lung base. Heart: Cardiomegaly. Coronary arteries: Coronary artery stent is noted. Aortic valve calcification. Liver: The liver is unremarkable. Gallbladder and bile ducts: Gallstone is present. No pericholecystic inflammatory changes to suggest cholecystitis. Pancreas: The pancreas is unremarkable. Spleen: The spleen is unremarkable. Calcified splenic granulomas Adrenal glands: Adrenal glands are unremarkable. Kidneys and ureters: No hydronephrosis or nephrolithiasis. There are subcentimeter hypodensities in the kidneys, statistically these represent cysts. There is perirenal stranding indicating prior inflammatory process. The previously noted collection in the right posterior perirenal space has resolved. Stomach and bowel: Stomach is distended. There is no obstruction. Constipation with possible fecal impaction. Appendix: No evidence of appendicitis. Intraperitoneal space: Unremarkable. No free air. No significant fluid collection. Vasculature: There is atherosclerotic disease. There is no aortic aneurysm. Lymph nodes: Unremarkable. No enlarged lymph nodes. Urinary bladder: There is diffuse wall thickening of the urinary bladder, it is distended with contrast. Recommend clinical correlation and urinalysis as indicated. Reproductive: Visualized portions of the male reproductive tract are unremarkable, though routine CT is limited in this regard. Bones/joints: Right femoral enchondroma. No acute osseous abnormality. Soft tissues: Unremarkable. CT/CT kidney stone [id number] IMPRESSION: 1. No hydronephrosis. 2. Resolved right posterior perirenal fluid collection. 3. Thickened urinary bladder wall, recommend urinalysis to evaluate for UTI. 4. Constipation. COMMENTS: Consistent with the [employer] [employer]'s Incidental Findings Committee white paper (J Am Ernie Radiol 2018): Any incidental renal lesion less than 1 cm or classified as too small to characterize, or any incidental cystic renal lesion characterized as simple-appearing, is likely benign. No follow-up imaging is recommended for these lesions per consensus recommendations based on imaging criteria.
--- NOTE | 2023-09-23 17:03 | PM.PN ---
Subjective Subjective: Overnight labs and H&P reviewed. Patient is currently sleepy however able to wake up easily and answers all orientation questions. He is able to tell me his correct name, date of , age. He remembers that he just left the hospital. I asked him if we have permission to place a Monge catheter and he declines, able to communicate his wishes and then goes back to sleep. He is not currently confused Medications: Reviewed: Yes Vitals/I&O/Wt Last Vital Signs Temp 97.7 F 09/23/23 12:00 Pulse 70 09/23/23 16:00 Resp 18 09/23/23 12:00 BP 112/75 09/23/23 12:00 Pulse Ox 92 09/23/23 12:00 O2 Del Method Nasal Cannula 09/23/23 08:24 O2 Flow Rate 3 09/23/23 08:24 09/23/23 09/23/23 09/23/23 06:59 14:59 22:59 Intake Total 450 / 450 240 / 240 Output Total 600 / 600 Balance -150 / -150 240 / 240 Weight last 48 hrs Weight 113.761 kg Weight 107.955 kg Weight 124.738 kg Physical Exam Narrative: General: lethargic, AO x3, wakes up easily HEENT: PERRLA, pupils bilaterally equal and reactive, pallors not present Chest: Normal vesicular breath sounds, no added sounds, equal good air entry bilaterally CVS: S1-S2 regular, no murmurs, no tachycardia, no gallops, no rubs Abdomen: Soft, nontender, no organomegaly, bowel sounds present Neuro: No focal deficits grossly Extremities: hypervolemic Data 09/23/23 05:11 09/23/23 05:11 A&P Assessment and plan (1) Acute encephalopathy: (2) Generalized weakness: (3) Bilateral foot pain: (4) Gout attack: (5) Type 2 diabetes mellitus: (6) Congestive heart failure: (7) HTN (hypertension): Qualifiers: Hypertension type: essential hypertension Qualified Code(s): I10 - Essential (primary) hypertension (8) Pulmonary HTN: (9) History of cardiac pacemaker: (10) Transaminitis: Plan # Acute encephalopathy Appears to be improving since admission Suspect this to be metabolic encephalopathy. Patient is lethargic, however is easily able to be awakened, correctly tells me his name age date of , the fact that he just left the hospital, the fact that he had an increased dose of Lasix ordered, he had kidney issues. He refuses placement of a Monge catheter and is very adamant in spite of understanding all the risks. He states that he will urinate in a urinal so that we can still measure his urine output. Blood glucoses within range. May be contributed by uremia, creatinine of 2.6. BUN 56. Elevated T. bili, normal ammonia level , Normal TSH. Hold home doses of Lyrica, he is currently on 300 mg twice daily at home which will be discontinued as potentially contributing with increasing kidney function. Hold tizanidine low suspicion for meningitis, pending BArtonella Serology Noted transminitis but improved over recent admission CTA head and neck vessel negative Had similar presentation on previous admission Blood cx negative thus far Negative RVP UA unremarkable stop morphine only tylenol prn for pain # ARUNA Cr up to 2.6 NSAIDs discontinued on last admission, hold entresto hold tylenol-codeine Bladder scan reveals 500 cc urine- patient refuses Monge placement Trying to convince for straight cath CT KUB # Bilateral foot pain -History of gout -Started on prednisone for the same # elevated troponins Likely related to CHF # Systolic diastolic CHF: lasix 20mg today History of PFO with right to left shunt History of bioprosthetic aortic valve, 29 mm, Magna Ease History of aortic aneurysm repair with 34 mm Hemashield graft in 08/19/2017 History of [employer] pacemaker for complete heart block and asystole History of CKD, 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, 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
[2023-09-23 17:33] LABS: Glucose Point of Care 305 mg/dL (70-110)
[2023-09-23] MEDS: piperacillin-tazobactam 3.375 GM in sodium chloride 0.9% (plus) 50 ML IV (17:50)
[2023-09-23] MEDS: FUROsemide 10 mg/mL SDV 2mL 20 MG IVP (18:01)
[2023-09-23 22:05] LABS: Glucose Point of Care 425 mg/dL (70-110)
[2023-09-24] VITALS (9 sets, daily range): BP systolic 95–113; BP diastolic 59–78; PULSE 69–94; RESP 16–18; TEMP 36.4–36.7; O2SAT 90–99; BMI 37.2
[2023-09-24] MEDS: piperacillin-tazobactam 3.375 GM in sodium chloride 0.9% (plus) 50 ML IV ×3 (01:10→16:45)
[2023-09-24 03:48] LABS: Hematocrit 32.6 % (37-53); Lymphocytes # 0.6 10^3/uL (0.8-4.8); Mean Corpuscular HGB Conc 30.7 g/dL (30-55); Mean Corpuscular Hemoglobin 30.9 pg (27-33); Mean Corpuscular Volume 100.6 fl (82-101); Mean Platelet Volume 12.3 fL (7.4-10.4); Monocytes # 0.8 10^3/uL (0.2-0.9); Monocytes % 8.7 %; Neutrophils # 7.71 10^3/uL (1.8-7.7); Neutrophils % 84.8 %; Nucleated Red Blood Cells % 0 %; Platelet Count 115 10^3/cmm (157-399); Red Blood Count 3.24 10^6/uL (3.85-5.65); Red Cell Distribution Width 14.2 % (12.1-15.1)
[2023-09-24 04:10] LABS: Alanine Aminotransferase 77 U/L (0-41); Albumin Level 2.8 g/dL (3.5-5.2); Alkaline Phosphatase 28 U/L (40-130); Anion Gap 12.4 (5-19); Aspartate Amino Transferase 34 U/L (0-40); Blood Urea Nitrogen 68 mg/dL (8-23); Calcium 8.8 mg/dL (8.5-10.5); Carbon Dioxide 30 mmol/L (22-29); Chloride 99 mmol/L (98-107); Globulin 3.8 g/dL (1.3-4.6); Glucose 241 mg/dL (65-115); Osmolality Calculated 312 mOsm/kg (285-295); Potassium 4.4 mmol/L (3.5-5.1); Sodium 137 mmol/L (136-145); Total Bilirubin 0.8 mg/dL (0.15-1.2); Total Protein 6.6 g/dL (6.6-8.7)
[2023-09-24 07:19] LABS: Glucose Point of Care 202 mg/dL (70-110)
[2023-09-24] MEDS: atorvastatin 40 mg Tablet PO (08:32)
[2023-09-24] MEDS: predniSONE 20 mg Tablet 40 MG PO (08:32)
[2023-09-24] MEDS: insulin lispro 100 unit/1 mL SUBCUT ×4 (08:32→21:52)
--- NOTE | 2023-09-24 10:41 | PC.CHAP ---
Pastoral Care Encounter/Spiritual Assessment Type of Contact [] Declined cryptographic machine operator visit [] Patient/Family/Request visit [] Outpatient visit [] Follow-up visit [] Physician referral [] Code/Alert [x] Routine visit [] Staff referral [] Actively dying [] Patient sleeping [] Family support [] [] Out of room [] Palliative care [] [x] Receiving care in room [] Pre-surgical visit [] Trauma [] Long length of stay [] ICU visit [] Other: Relational/Emotional Strength [] Patient feels connected with others/family/visitors/staff [] Distress [] Loneliness/isolation [] Abandonment Spirituality of Patient [] Person of Karla [] Attends Hinduism of their Karla [] Believes in Prayer [] Reads Bible or Episcopal materials [] There are Spiritual issues to be addressed Obstetrics/Gynecology Nurse Interventions [] Prayer [] Active listening [] Non-anxious presence [] Spiritual/emotional support [] Crisis/trauma care [] Spiritual counseling [] Bereavement support [] Provided bereavement packet [] Provided Bible/devotional materials [] Provided toy/stuffed animal, coloring book to patient or family member [] Provided Communion [] Anointing/[place] [] Salvation [] Completed spiritual assessment [] Other: Impact on Illness or Injury [] Angry [] Fearful [] Anxious [] Often cries [] Exhaustion [] Unable to work [] Unable to attend gnosticist [] Unable to walk/stand [] Unable to read [] Unable to drive [] Unable to eat/drink [] Unable to sleep [] Unable to be with family [] Patient intubated [] Other: Summary checking with dotor looking to go home Time spent with patient 5 mins
[2023-09-24 10:52] LABS: Glucose Point of Care 187 mg/dL (70-110)
--- NOTE | 2023-09-24 11:42 | P.PN_ITS ---
Subjective 2 Subjective: Patient is much more alert and awake today. He is able to correctly tell me his name age date of . He is correctly able to name all of his children. He knows he is in the hospital and that he is here because of ARUNA. He is sitting up in a chair with 2 L/min supplemental O2. Earlier he was able to ambulate with a walker and then when he fell steady enough he was even able to ambulate without any assistive devices. His who is at bedside states that he is back at his baseline mentation.Creatinine has worsened to 3.0. Urine output of 1.1 L. Uncertain regarding the accuracy of urine output as patient is using both a urinal and also walking to the bathroom. Continues to decline Monge catheter placement. Every 8 hours bladder checks are in place. Yesterday patient had 500 cc of retained urine which she was eventually able to void by himself. Medications: Reviewed: Yes Vitals/I&O/Wt Last Vital Signs Temp 97.6 F 09/24/23 10:33 Pulse 69 09/24/23 10:33 Resp 16 09/24/23 10:33 BP 101/69 09/24/23 10:33 Pulse Ox 99 09/24/23 10:33 O2 Del Method Nasal Cannula 09/24/23 10:33 O2 Flow Rate 2 09/24/23 10:33 09/23/23 09/24/23 09/24/23 22:59 06:59 14:59 Intake Total 590 / 830 50 / 880 240 / 240 Output Total 200 / 200 325 / 525 Balance 390 / 630 -275 / 355 240 / 240 Weight last 48 hrs Weight 114.396 kg Weight 113.761 kg Weight 107.955 kg Weight 124.738 kg Physical Exam 2 Narrative: General: No acute distress, AO x3 HEENT: PERRLA, pupils bilaterally equal and reactive, pallors not present Chest: Normal vesicular breath sounds, no added sounds, equal good air entry bilaterally CVS: S1-S2 regular, no murmurs, no tachycardia, no gallops, no rubs Abdomen: Soft, nontender, no organomegaly, bowel sounds present Neuro: No focal deficits, no facial deformity, AO x3, power 5/5 in all limbs Extremities: Healthy surgical dressing present on the right hip, mild tenderness, soft no erythema. Data 09/24/23 03:35 09/24/23 03:35 Micro: Microbiology 09/22/23 19:05 Urine Culture - Preliminary Urine,Clean Catch A&P Assessment and plan (1) Acute encephalopathy: (2) Generalized weakness: (3) Bilateral foot pain: (4) Gout attack: (5) Type 2 diabetes mellitus: (6) Congestive heart failure: (7) HTN (hypertension): Qualifiers: Hypertension type: essential hypertension Qualified Code(s): I10 - Essential (primary) hypertension (8) Pulmonary HTN: (9) History of cardiac pacemaker: (10) Transaminitis: Plan # Acute encephalopathy This is resolved today, patient is back to his baseline mentation as confirmed by his at bedside. Likely contributed by Lyrica which continues to be on hold. Will additionally hold Tinazidine while in the hospital. Likely the dose of Lyrica will need to be readjusted for home use given worsened kidney function. CTA head and neck vessel negative Blood cx negative thus far Negative RVP UA unremarkable No opiates for pain management, only tylenol prn for pain # ARUNA Cr up to 3.0 today. Suspect this may be related to medications including Entresto, recent diuresis. Patient had stopped indomethacin after his last discharge on the . 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 CT of the abdomen and pelvis performed yesterday did not show any hydronephrosis or other urinary outflow tract obstruction. patient refuses Monge placement Consult nephrology # Bilateral foot pain -History of gout, suspected gout flare -Started on prednisone for the same # elevated troponins Likely related to CHF , denies any current chest pain. # Systolic diastolic CHF: Appearing to be euvolemic today. Holding off on further doses of Lasix today given worsening kidney function. Fluid restriction 1500 cc # Transaminitis: CT abdomen showing grossly normal liver. Liver enzymes trending down. T. bili normalized. May have been related to hepatic congestion. 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 Also on Eliquis 2.5 twice daily, dose recently reduced on recent admission per cardiology recommendations # History of [employer] pacemaker for complete heart block and asystole Attestations 2 Medical Necessity Statement*: Continued admission for worsening creatinine, nephrology consult today. Needs close monitoring of creatinine and urine output and can needs to be monitored for continued improvement of mentation. Coding Level of Care Code Acute Code for Chg Fwd Moderate MDM includes number and complexity of problems actively addressed during encounter, amount and/or complexity of data reviewed/ordered and described risk of complication, morbidity or mortality of management as documented Diagnoses Acute encephalopathy G93.40 Generalized weakness R53.1 Bilateral foot pain M79.671; M79.672 Gout attack M10.9 Type 2 diabetes mellitus E11.9 Congestive heart failure I50.9 Essential hypertension I10 Hypertension type: essential hypertension Pulmonary HTN I27.20 History of cardiac pacemaker Z95.0 Transaminitis R74.01
[2023-09-24 13:24] LABS: Lyme AB Screen <0.90 index
--- NOTE | 2023-09-24 13:57 | P.CONIM_ITS ---
Providers/Reason For Consult 2 Consulting Physician/Specialty*: kommana/nephrology Reason for Consult*: ARUNA Attending Physician: Lise Lindsay MD Primary Care Provider: Diana Butcher MD History of Present Illness History of Present Illness Pawan Marcum is a 68 year old male Patient is a 68-year-old male with past medical history of type 2 diabetes, history of aortic aneurysm repair aortic valve stenosis and replacement with bioprosthetic valve, history of pacemaker, gout, CHF, A-fib presented due to altered mental status weakness bilateral foot pain. No need patient was recently admitted to the hospital and was discharged on September 21, 2023. Was treated for CHF exacerbation with aggressive diuresis. Creatinine at the time of discharge was 2.2. Patient has history of CKD and followed by [facility]. Patient was transferred to [place] in October 2022 due to acute kidney injury, bilateral lower extremity rash, CHF and possible aortic vegetation. 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 Creatinine at that time was 2 range. Was not started on antibiotics as it was thought to be infectious GN at that time. He now presents with creatinine 2.8 worsened to 3.0 currently. Diet diuretics are on hold chest x-ray has showed moderate cardiomegaly. Renal ultrasound was normal. Review of Systems 2 Narrative: Other review of systems negative Medications/Allergies Home Medications Medication Instructions Recorded Confirmed Last Taken Type diabetic shoes with inserts #1 ea 02/28/21 09/23/23 08/12/22 Rx Blood pressure cuff and machine #1 ea 06/27/22 09/23/23 08/12/22 Rx o2 at 3L per nasal cannula #1 ea 08/11/22 09/23/23 08/12/22 Rx nitroglycerin 0.3 mg sublingual 0.3 mg sublingual Q5M PRN chest 10/08/22 09/23/23 Unknown Rx tablet pain #30 tabs Diabetic shoes with inserts #1 ea 04/24/23 09/23/23 Unknown Rx indomethacin 75 mg 75 mg PO BID #30 caps 08/11/23 09/23/23 09/22/23 Rx capsule,extended release pregabalin 300 mg capsule 300 mg PO BID #60 caps 1209/23/23 09/22/23 Rx tizanidine 4 mg tablet 4 mg PO Q6H PRN muscle spasticity 09/03/23 09/23/23 Unknown Rx #20 tabs acetaminophen 300 mg-codeine 60 mg 1 tab PO Q8H PRN pain #90 tabs 09/16/23 09/23/23 Unknown Rx tablet aspirin 81 mg tablet,delayed 81 mg PO DAILY 09/17/23 09/23/23 09/22/23 History release atorvastatin 40 mg tablet 40 mg PO DAILY 09/17/23 09/23/23 09/22/23 History dulaglutide 1.5 mg/0.5 mL 1.5 mg SUBCUT DAILY 09/17/23 09/23/23 09/22/23 History subcutaneous pen injector (Trulicity) famotidine 40 mg tablet 40 mg PO BID 09/17/23 09/23/23 09/22/23 History fenofibrate 160 mg tablet 160 mg PO DAILY 09/17/23 09/23/23 09/22/23 History metolazone 2.5 mg tablet 2.5 mg PO DAILY PRN Edema 09/17/23 09/23/23 09/22/23 History rifabutin 150 mg capsule 300 mg PO DAILY 09/17/23 09/23/23 09/22/23 History sacubitril 24 mg-valsartan 26 mg 1 tab PO BID 09/17/23 09/23/23 09/22/23 History tablet (Entresto) apixaban 5 mg tablet (Eliquis) 2.5 mg (1/2 x 5 mg) PO BID 30 days 09/21/23 09/23/23 09/22/23 Rx #30 tabs furosemide 20 mg tablet 40 mg (2 x 20 mg) PO DAILY EDEMA 09/21/23 09/23/23 09/22/23 Rx 30 days #30 tabs Allergies Allergy/AdvReac Type Severity Reaction Status Date / Time fentanyl Allergy Unknown Verified 09/22/23 22:56 lisinopril AdvReac Mild Coughing Verified 09/17/23 14:42 Current Medications Generic Name Dose Route Start Last Admin Trade Name Freq PRN Reason Stop Dose Admin Atorvastatin Calcium 40 mg 09/23/23 09:00 09/24/23 08:32 Atorvastatin 40 Mg Tablet PO 40 mg DAILY JOSÉ Administration Piperacillin Sod/Tazobactam 50 mls @ 12.5 mls/hr 09/23/23 17:30 09/24/23 12:35 Sod 3.375 gm/ Sodium Chloride IV Infused Q8H JOSÉ Infusion Insulin Human Lispro 0 unit 09/23/23 22:12 09/24/23 11:40 Insulin Lispro 100 Unit/1 Ml SUBCUT 6 unit WM&BEDTIME JOSÉ Administration Protocol Non-Formulary Medication 160 mg 09/23/23 09:00 09/24/23 07:44 Fenofibrate PO Not Given DAILY JOSÉ Non-Formulary Medication 300 mg 09/23/23 09:00 09/24/23 07:44 Rifabutin PO Not Given DAILY JOSÉ Pantoprazole Sodium 40 mg 09/22/23 23:00 09/23/23 22:39 Pantoprazole 40 Mg Sdv IVP 40 mg Q24H JOSÉ Administration Prednisone 40 mg 09/23/23 09:00 09/24/23 08:32 Prednisone 20 Mg Tablet PO 40 mg DAILY JOSÉ Administration PFSH Acute 2 PFSH: Medical History Confusion Epistaxis Pulmonary HTN Anticoagulation adequate with anticoagulant therapy Nonischemic cardiomyopathy Enrolled in chronic care management Atrial fibrillation Pneumonia Acute and chronic respiratory failure with hypoxia Erectile dysfunction Type 2 diabetes mellitus Chronic kidney disease Anemia Idiopathic gout, right ankle and foot Mixed hyperlipidemia Nonrheumatic aortic (valve) stenosis DDD (degenerative disc disease), lumbosacral HTN (hypertension) Surgical History History of cardiac pacemaker Hx of arthroscopy of left knee Hx of tooth extraction Hx of heart surgery (2017) Aortic valve replacement and aneurysm repair Family History Mother CAD (coronary artery disease) Brother Cancer Other Hypertension Denies family history of Diabetes Clotting disorder Dementia Chronic kidney disease (CKD) Suicide Anesthesia complication Bleeding disorder Lung disease Stroke Social History Smoking and tobacco/nicotine status: never used tobacco/nicotine Second hand smoke exposure: No Alcohol intake: current Alcohol intake frequency: holidays/special occasions only Substance/Drug Use: never Adopted: No Caregiver/support person: Yes (spouse) Lives independently: Yes Household members: spouse and children Housing: House Marital status: Number of children: 3 Number of grandchildren: 3 Highest education level completed: 6th Grade service: No Current occupational status: disabled Pets and animals: Yes Current gender identity: Male Special pola needs: No Agree to transfusion: Yes Vitals/I&O/Wt Last Vital Signs Temp 97.6 F 09/24/23 10:33 Pulse 71 09/24/23 13:46 Resp 16 09/24/23 10:33 BP 101/69 09/24/23 10:33 Pulse Ox 90 09/24/23 13:46 O2 Del Method Room Air 09/24/23 13:46 O2 Flow Rate 2 09/24/23 10:33 09/23/23 09/24/23 09/24/23 22:59 06:59 14:59 Intake Total 590 / 830 50 / 880 1010 / 1010 Output Total 200 / 200 325 / 525 250 / 250 Balance 390 / 630 -275 / 355 760 / 760 Weight last 48 hrs Weight 114.396 kg Weight 113.761 kg Weight 107.955 kg Weight 124.738 kg Physical Exam 2 Narrative: Awake alert, no distress, on 2 L nasal cannula Data 09/24/23 03:35 09/24/23 03:35 Micro: Microbiology 09/22/23 19:05 Urine Culture - Preliminary Urine,Clean Catch A&P Assessment and plan (1) ARUNA (acute kidney injury): (2) Acute alteration in mental status: Plan 1. Acute on chronic kidney disease: Patient's baseline creatinine is in the range of 1.5-2.5, had multiple prior ARUNA episodes. Patient followed by [facility] on a regular basis. 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 He was recently admitted and was aggressively diuresed due to CHF exacerbation -Etiology if ARUNA current likely from recent aggressive diuresis and contrast nephropathy -Continue to hold diuretics temporarily, started on IV albumin, check urine electrolytes -Will resume diuretics and it 1 to 2 days -2 g sodium restriction and 1500 mill fluid restriction 2.History of CHF recent exacerbation and aggressive diuresis 3. Acute encephalopathy, workup negative, improved Likely metabolic 4. Acute gout flare, on steroids was on indomethacin in the past but has not taken recently. 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 History of pacemaker Patient evaluated using audiovisual cart. Time spent 40 minutes Consult Attestations 2 Medical Necessity Statement: per giuliano Coding Level of Care Code Acute Code for Chg Fwd Diagnoses ARUNA (acute kidney injury) N17.9 Acute alteration in mental status R41.82
--- NOTE | 2023-09-24 14:00 | US_ITS ---
WS: [id number] RENAL ULTRASOUND HISTORY: olga COMPARISON: None available. TECHNIQUE: 2-D and color Doppler imaging of the kidney submitted. Right kidney: 12.0 cm x 5.1 cm x 6.9 cm. Cortex: 1.4 cm Normal echogenicity with no hydronephrosis or mass. Left kidney: 11.9 cm x 5.6 cm x 5.7 cm. Cortex: 1.7 cm Normal echogenicity with no hydronephrosis or mass. Aorta: Normal. Urinary Bladder: Nondistended. IMPRESSION: Normal renal ultrasound.
[2023-09-24] MEDS: albumin 25 G/100 ML BAG 60 G IV ×2 (15:02→21:52)
[2023-09-24 15:38] LABS: Urine Random Sodium 30 mmol/L
[2023-09-24 15:42] LABS: Urine Random Chloride 19 mmol/L
[2023-09-24 16:28] LABS: Glucose Point of Care 346 mg/dL (70-110)
[2023-09-24 21:46] LABS: Glucose Point of Care 373 mg/dL (70-110)
[2023-09-25] VITALS (8 sets, daily range): BP systolic 101–138; BP diastolic 62–88; PULSE 69–72; RESP 14–20; TEMP 36.3–36.8; O2SAT 92–95; BMI 37.8
[2023-09-25] MEDS: pantoprazole 40 mg SDV IVP ×2 (00:31→22:17)
[2023-09-25] MEDS: piperacillin-tazobactam 3.375 GM in sodium chloride 0.9% (plus) 50 ML IV ×3 (00:32→17:21)
[2023-09-25] MEDS: albumin 25 G/100 ML BAG 60 G IV ×3 (05:20→22:18)
[2023-09-25 06:45] LABS: Glucose Point of Care 171 mg/dL (70-110)
[2023-09-25] MEDS: atorvastatin 40 mg Tablet PO (08:30)
[2023-09-25] MEDS: insulin lispro 100 unit/1 mL SUBCUT ×4 (08:30→22:17)
[2023-09-25] MEDS: predniSONE 20 mg Tablet 40 MG PO (08:30)
--- NOTE | 2023-09-25 09:12 | PC.SOCIAL ---
IMM Update pg 2 of IMM updated and reviewed w/ patient. Copy provided and copy dated, initialed and placed in chart.
[2023-09-25 12:28] LABS: Alanine Aminotransferase 61 U/L (0-41); Albumin Level 3.6 g/dL (3.5-5.2); Alkaline Phosphatase 27 U/L (40-130); Anion Gap 15.3 (5-19); Aspartate Amino Transferase 27 U/L (0-40); Blood Urea Nitrogen 62 mg/dL (8-23); Calcium 9.5 mg/dL (8.5-10.5); Carbon Dioxide 28 mmol/L (22-29); Chloride 101 mmol/L (98-107); Glomerular Filtration Rate 24.8 mL/min (90-130); Glucose 213 mg/dL (65-115); Osmolality Calculated 314 mOsm/kg (285-295); Potassium 4.3 mmol/L (3.5-5.1); Sodium 140 mmol/L (136-145); Total Bilirubin 0.9 mg/dL (0.15-1.2); Total Protein 7.6 g/dL (6.6-8.7)
[2023-09-25 12:50] LABS: Glucose Point of Care 261 mg/dL (70-110)
--- NOTE | 2023-09-25 14:24 | P.PN_ITS ---
Subjective 2 Subjective: No new complaints today. Mentation continues to be good. He is at his baseline. Alert awake oriented x 3. Noted to be ambulating with physical therapy. Walking both with and without walker, states he feels more steady with a walker currently. Creatinine improving at 2.6 today. Total urine output of 1300 cc. Medications: Reviewed: Yes Vitals/I&O/Wt Last Vital Signs Temp 97.4 F L 09/25/23 13:21 Pulse 70 09/25/23 13:21 Resp 20 H 09/25/23 13:21 BP 131/84 09/25/23 13:21 Pulse Ox 94 09/25/23 13:21 O2 Del Method Room Air 09/25/23 13:21 O2 Flow Rate 2 09/24/23 10:33 09/24/23 09/25/23 09/25/23 22:59 06:59 14:59 Intake Total 870 / 1880 150 / 2030 630 / 630 Output Total 100 / 350 700 / 1050 500 / 500 Balance 770 / 1530 -550 / 980 130 / 130 Weight last 48 hrs Weight 116.12 kg Weight 114.396 kg Physical Exam 2 Narrative: General: No acute distress, AO x3 HEENT: PERRLA, pupils bilaterally equal and reactive, pallors not present Chest: Normal vesicular breath sounds, no added sounds, equal good air entry bilaterally CVS: S1-S2 regular, no murmurs, no tachycardia, no gallops, no rubs Abdomen: Soft, nontender, no organomegaly, bowel sounds present Neuro: No focal deficits, no facial deformity, AO x3, power 5/5 in all limbs Data 09/24/23 03:35 09/25/23 11:58 Micro: Microbiology 09/22/23 19:05 Urine Culture - Final Urine,Clean Catch 09/22/23 23:22 Blood Culture - Preliminary Blood No growth to date 09/22/23 23:14 Blood Culture - Preliminary No growth to date Blood A&P Assessment and plan (1) Acute encephalopathy: (2) Generalized weakness: (3) Bilateral foot pain: (4) Gout attack: (5) Type 2 diabetes mellitus: (6) Congestive heart failure: (7) HTN (hypertension): Qualifiers: Hypertension type: essential hypertension Qualified Code(s): I10 - Essential (primary) hypertension (8) Pulmonary HTN: (9) History of cardiac pacemaker: (10) Transaminitis: Plan # Acute encephalopathy This is resolved today, patient is back to his baseline mentation as confirmed by his at bedside. Likely contributed by Lyrica which continues to be on hold. Will additionally hold Tinazidine while in the hospital. Likely the dose of Lyrica will need to be readjusted for home use given worsened kidney function. CTA head and neck vessel negative Blood cx negative thus far Negative RVP UA unremarkable No opiates for pain management, only tylenol prn for pain # ARUNA Cr up to 3.0 today. Suspect this may be related to medications including Entresto, recent diuresis. Patient had stopped indomethacin after his last discharge on the . 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 CT of the abdomen and pelvis performed yesterday did not show any hydronephrosis or other urinary outflow tract obstruction. patient refuses Monge placement Consult nephrology # Bilateral foot pain -History of gout, suspected gout flare -Started on prednisone for the same # elevated troponins Likely related to CHF , denies any current chest pain. # Systolic diastolic CHF: Appearing to be euvolemic today. Holding off on further doses of Lasix today given worsening kidney function. Fluid restriction 1500 cc # Transaminitis: CT abdomen showing grossly normal liver. Liver enzymes trending down. T. bili normalized. May have been related to hepatic congestion. 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 Also on Eliquis 2.5 twice daily, dose recently reduced on recent admission per cardiology recommendations # History of [employer] pacemaker for complete heart block and asystole September 25, 2023 plan for today. Creatinine continues to improve. Good urine output. Patient remains alert awake oriented at baseline mental status. Continue to hold Lyrica and tizanidine. Will readjust dose closer to discharge. Gout flare much improving. Foot swelling is improved. Attestations 2 Medical Necessity Statement*: continued admission for close monitoring of creatinine, continued urine output monitoring. Coding Level of Care Code Acute Code for Chg Fwd Moderate MDM includes number and complexity of problems actively addressed during encounter, amount and/or complexity of data reviewed/ordered and described risk of complication, morbidity or mortality of management as documented Diagnoses Acute encephalopathy G93.40 Generalized weakness R53.1 Bilateral foot pain M79.671; M79.672 Gout attack M10.9 Type 2 diabetes mellitus E11.9 Congestive heart failure I50.9 Essential hypertension I10 Hypertension type: essential hypertension Pulmonary HTN I27.20 History of cardiac pacemaker Z95.0 Transaminitis R74.01
--- NOTE | 2023-09-25 15:38 | P.PN_ITS ---
Subjective 2 Subjective: feels ok On2 L nc Medications: Reviewed: Yes Vitals/I&O/Wt Last Vital Signs Temp 97.4 F L 09/25/23 13:21 Pulse 70 09/25/23 13:21 Resp 20 H 09/25/23 13:21 BP 131/84 09/25/23 13:21 Pulse Ox 94 09/25/23 13:21 O2 Del Method Room Air 09/25/23 13:21 O2 Flow Rate 2 09/24/23 10:33 09/25/23 09/25/23 09/25/23 06:59 14:59 22:59 Intake Total 150 / 2030 730 / 730 Output Total 700 / 1050 500 / 500 Balance -550 / 980 230 / 230 Weight last 48 hrs Weight 116.12 kg Weight 114.396 kg Physical Exam 2 Narrative: Awake alert, no distress, on 2 L nasal cannula Data 09/24/23 03:35 09/25/23 11:58 Micro: Microbiology 09/22/23 19:05 Urine Culture - Final Urine,Clean Catch 09/22/23 23:22 Blood Culture - Preliminary Blood 09/22/23 23:14 Blood Culture - Preliminary Blood A&P Assessment and plan (1) ARUNA (acute kidney injury): (2) Acute alteration in mental status: Plan 1. Acute on chronic kidney disease: Patient's baseline creatinine is in the range of 1.5-2.5, had multiple prior ARUNA episodes. Patient followed by [facility] on a regular basis. 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 He was recently admitted and was aggressively diuresed due to CHF exacerbation -Etiology if ARUNA current likely from recent aggressive diuresis and contrast nephropathy Cr better , started on IV albumin, -Will resume diuretics in Am -2 g sodium restriction and 1500 mill fluid restriction 2.History of CHF recent exacerbation and aggressive diuresis 3. Acute encephalopathy, workup negative, improved Likely metabolic 4. Acute gout flare, on steroids was on indomethacin in the past but has not taken recently. 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 History of pacemaker Patient evaluated using audiovisual cart. Time spent 20 minutes Attestations 2 Medical Necessity Statement*: per mediicne Coding Level of Care Code Acute Code for Chg Fwd Diagnoses ARUNA (acute kidney injury) N17.9 Acute alteration in mental status R41.82
[2023-09-25 16:16] LABS: Glucose Point of Care 203 mg/dL (70-110)
--- NOTE | 2023-09-25 16:40 | PC.NURSE ---
IV pump going off, triggering patient to have a bout of confusion. He was unable to remember where he was, got dressed, pulled at IV, and began wandering to the nurses station. This nurse was able to quickly reorient pt and settle him. VS WNL; 95%RA. Bladder scan revealed 7ml post void. Bed alarm turned ON. Notified Dr. Lindsay. No new orders at this time.
[2023-09-25] MEDS: pregabalin 25 mg Capsule PO (17:20)
[2023-09-25 21:02] LABS: Glucose Point of Care 356 mg/dL (70-110)
[2023-09-26] VITALS (9 sets, daily range): BP systolic 124–163; BP diastolic 77–106; PULSE 62–80; RESP 16–18; TEMP 36.4–36.8; O2SAT 90–94
[2023-09-26] MEDS: piperacillin-tazobactam 3.375 GM in sodium chloride 0.9% (plus) 50 ML IV ×2 (02:09→09:10)
[2023-09-26 04:26] LABS: Alanine Aminotransferase 51 U/L (0-41); Albumin Level 3.6 g/dL (3.5-5.2); Alkaline Phosphatase 21 U/L (40-130); Anion Gap 14.1 (5-19); Aspartate Amino Transferase 21 U/L (0-40); Blood Urea Nitrogen 57 mg/dL (8-23); Calcium 9.4 mg/dL (8.5-10.5); Carbon Dioxide 29 mmol/L (22-29); Chloride 105 mmol/L (98-107); Globulin 3.5 g/dL (1.3-4.6); Glomerular Filtration Rate 30.1 mL/min (90-130); Glucose 87 mg/dL (65-115); Osmolality Calculated 313 mOsm/kg (285-295); Potassium 4.1 mmol/L (3.5-5.1); Sodium 144 mmol/L (136-145); Total Protein 7.1 g/dL (6.6-8.7)
[2023-09-26] MEDS: albumin 25 G/100 ML BAG 60 G IV (05:57)
[2023-09-26 06:59] LABS: Glucose Point of Care 97 mg/dL (70-110)
--- NOTE | 2023-09-26 08:51 | PM.PN ---
Subjective Subjective: feels OK Medications: Reviewed: Yes Vitals/I&O/Wt Last Vital Signs Temp 97.6 F 09/26/23 08:30 Pulse 62 09/26/23 08:30 Resp 18 09/26/23 08:30 BP 157/90 09/26/23 08:30 Pulse Ox 91 09/26/23 08:30 O2 Del Method Room Air 09/26/23 08:30 O2 Flow Rate 2 09/24/23 10:33 09/25/23 09/26/23 09/26/23 22:59 06:59 14:59 Intake Total 1030 / 1760 183 / 1943 Output Total 350 / 850 400 / 1250 Balance 680 / 910 -217 / 693 Weight last 48 hrs Weight 115.575 kg Weight 116.12 kg Physical Exam Narrative: Awake alert, no distress, on 2 L nasal cannula Data 09/24/23 03:35 09/26/23 03:43 Micro: Microbiology 09/22/23 19:05 Urine Culture - Final Urine,Clean Catch 09/22/23 23:22 Blood Culture - Preliminary Blood 09/22/23 23:14 Blood Culture - Preliminary Blood A&P Assessment and plan (1) ARUNA (acute kidney injury): (2) Acute alteration in mental status: Plan 1. Acute on chronic kidney disease: Patient's baseline creatinine is in the range of 1.5-2.5, had multiple prior ARUNA episodes. Patient followed by [facility] on a regular basis. 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 He was recently admitted and was aggressively diuresed due to CHF exacerbation -Etiology if ARUNA current likely from recent aggressive diuresis and contrast nephropathy Cr better ,DC IV albumin, -Will resume PO diuretics today -2 g sodium restriction and 1500 mill fluid restriction 2.History of CHF recent exacerbation and aggressive diuresis 3. Acute encephalopathy, workup negative, improved Likely metabolic 4. Acute gout flare, on steroids was on indomethacin in the past but has not taken recently. 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 History of pacemaker Patient evaluated using audiovisual cart. Time spent 20 minutes Attestations Medical Necessity Statement*: per [facility] Coding Level of Care Code Acute Code for Chg Fwd Diagnoses ARUNA (acute kidney injury) N17.9 Acute alteration in mental status R41.82
[2023-09-26] MEDS: atorvastatin 40 mg Tablet PO (09:09)
[2023-09-26] MEDS: predniSONE 20 mg Tablet 40 MG PO (09:09)
[2023-09-26] MEDS: pregabalin 25 mg Capsule PO (09:09)
[2023-09-26 11:16] LABS: Glucose Point of Care 210 mg/dL (70-110)
[2023-09-26] MEDS: insulin lispro 100 unit/1 mL SUBCUT ×3 (12:34→21:38)
[2023-09-26 16:29] LABS: Glucose Point of Care 239 mg/dL (70-110)
--- NOTE | 2023-09-26 17:02 | PM.PN ---
Subjective Subjective: creatinine continues to improve down to 2.2 today. Urine output 750 cc. Patient had an episode of confusion overnight. Lyrica had been resumed yesterday at 50 mg twice daily. Medications: Reviewed: Yes Vitals/I&O/Wt Last Vital Signs Temp 97.8 F 09/26/23 16:07 Pulse 80 09/26/23 16:07 Resp 17 09/26/23 16:07 BP 159/94 09/26/23 16:07 Pulse Ox 94 09/26/23 16:07 O2 Del Method Room Air 09/26/23 16:07 O2 Flow Rate 2 09/24/23 10:33 09/26/23 09/26/23 09/26/23 06:59 14:59 22:59 Intake Total 183 / 1943 1077 / 1077 Output Total 400 / 1250 Balance -217 / 693 1077 / 1077 Weight last 48 hrs Weight 115.575 kg Weight 116.12 kg Physical Exam Narrative: General: No acute distress, AO x3 HEENT: PERRLA, pupils bilaterally equal and reactive, pallors not present Chest: Normal vesicular breath sounds, no added sounds, equal good air entry bilaterally CVS: S1-S2 regular, no murmurs, no tachycardia, no gallops, no rubs Abdomen: Soft, nontender, no organomegaly, bowel sounds present Neuro: No focal deficits, no facial deformity, AO x3, power 5/5 in all limbs Data 09/24/23 03:35 09/26/23 03:43 Micro: Microbiology 09/22/23 19:05 Urine Culture - Final Urine,Clean Catch A&P Assessment and plan (1) Acute encephalopathy: (2) Generalized weakness: (3) Bilateral foot pain: (4) Gout attack: (5) Type 2 diabetes mellitus: (6) Congestive heart failure: (7) HTN (hypertension): Qualifiers: Hypertension type: essential hypertension Qualified Code(s): I10 - Essential (primary) hypertension (8) Pulmonary HTN: (9) History of cardiac pacemaker: (10) Transaminitis: Plan # Acute encephalopathy This is resolved today, patient is back to his baseline mentation as confirmed by his at bedside. Likely contributed by Lyrica which continues to be on hold. Will additionally hold Tinazidine while in the hospital. Likely the dose of Lyrica will need to be readjusted for home use given worsened kidney function. CTA head and neck vessel negative Blood cx negative thus far Negative RVP UA unremarkable No opiates for pain management, only tylenol prn for pain # ARUNA Cr up to 3.0 today. Suspect this may be related to medications including Entresto, recent diuresis. Patient had stopped indomethacin after his last discharge on the . 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 CT of the abdomen and pelvis performed yesterday did not show any hydronephrosis or other urinary outflow tract obstruction. patient refuses Monge placement Consult nephrology # Bilateral foot pain -History of gout, suspected gout flare -Started on prednisone for the same # elevated troponins Likely related to CHF , denies any current chest pain. # Systolic diastolic CHF: Appearing to be euvolemic today. Holding off on further doses of Lasix today given worsening kidney function. Fluid restriction 1500 cc # Transaminitis: CT abdomen showing grossly normal liver. Liver enzymes trending down. T. bili normalized. May have been related to hepatic congestion. 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 Also on Eliquis 2.5 twice daily, dose recently reduced on recent admission per cardiology recommendations # History of [employer] pacemaker for complete heart block and asystole September 25, 2023 plan for today. Creatinine continues to improve. Good urine output. Patient remains alert awake oriented at baseline mental status. Continue to hold Lyrica and tizanidine. Will readjust dose closer to discharge. Gout flare much improving. Foot swelling is improved. Plan for today September 26, 2023. Patient was started on Lyrica 50 mg twice daily yesterday however it appears he was more confused overnight. Will discontinue Lyrica again. Creatinine continues to improve at 2.2. Resumed his home dose of Lasix at 40 mg twice daily. Closely monitor renal function after resuming diuretics. If stable hope to discharge in the next 24 hours.Hold prednisone in case contributing to intermittent delirium Attestations Medical Necessity Statement*: resume lasix and monitor kidney function. D/c Lyrica Coding Level of Care Code Acute Code for [facility] Fwd Diagnoses Acute encephalopathy G93.40 Generalized weakness R53.1 Bilateral foot pain M79.671; M79.672 Gout attack M10.9 Type 2 diabetes mellitus E11.9 Congestive heart failure I50.9 Essential hypertension I10 Hypertension type: essential hypertension Pulmonary HTN I27.20 History of cardiac pacemaker Z95.0 Transaminitis R74.01
[2023-09-26] MEDS: FUROsemide 40 mg Tablet PO (17:03)
[2023-09-26 17:19] LABS: Fungitell 1-3-B Glucan Assay 55 pg/mL; Interpretation NEGATIVE
[2023-09-26 20:11] LABS: Glucose Point of Care 210 mg/dL (70-110)
[2023-09-26 20:54] LABS: Bartonella DNA PCR Source WHOLE BLOOD; Bartonella Henselae DNA PCR NOT DETECTED; Bartonella Quintana DNA PCR NOT DETECTED
[2023-09-26] MEDS: pantoprazole 40 mg SDV IVP (21:38)
[2023-09-27] VITALS (51 sets, daily range): BP systolic 94–188; BP diastolic 66–108; PULSE 68–89; RESP 15–45; TEMP 37–39.2; O2SAT 82–99
[2023-09-27] MEDS: amlodipine 10 mg Tablet PO (04:13)
[2023-09-27 04:37] LABS: Glucose Point of Care 110 mg/dL (70-110)
[2023-09-27 04:58] LABS: Alanine Aminotransferase 47 U/L (0-41); Albumin Level 4.2 g/dL (3.5-5.2); Alkaline Phosphatase 25 U/L (40-130); Anion Gap 15.2 (5-19); Aspartate Amino Transferase 24 U/L (0-40); Blood Urea Nitrogen 59 mg/dL (8-23); Carbon Dioxide 29 mmol/L (22-29); Chloride 105 mmol/L (98-107); Glomerular Filtration Rate 24.8 mL/min (90-130); Glucose 97 mg/dL (65-115); Osmolality Calculated 316 mOsm/kg (285-295); Potassium 4.2 mmol/L (3.5-5.1); Sodium 145 mmol/L (136-145); Total Bilirubin 1.6 mg/dL (0.15-1.2); Total Protein 8.2 g/dL (6.6-8.7)
[2023-09-27] MEDS: haloperidol inj 5 mg/mL INJ 1 mL IM (05:18)
--- NOTE | 2023-09-27 05:33 | PC.NURSE ---
pt refused to obtain oral and axillary temperature. respiration rate 22.
--- NOTE | 2023-09-27 05:49 | PC.NURSE ---
oxy mask is blow by as patient will not wear it
[2023-09-27] MEDS: LORazepam 2 mg/mL INJ 10 mL MDV IM (06:33)
[2023-09-27 06:48] LABS: Glucose Point of Care 151 mg/dL (70-110)
--- NOTE | 2023-09-27 07:15 | PC.NURSE ---
Patient is 85% on his 3 liters. Patient placed on 10 liters oxy mask. Patient has been more confused and restless through out the night. Salazar Catheter placed at this time.
[2023-09-27 07:24] LABS: ABG PCO2 37.1 mmHg (35-45); ABG PH Result 7.39 (7.35-7.45); Arterial Blood Gas Hematocrit 33.2 % (42-52); Base Excess ABG -2.1 mmol/L (-2.0-2.0); Blood Gas Allen Test Pos; Blood Gas Operator Identificat BROMA; Blood Gas Sample Site Radial, left; Blood Gas Sample Type Arterial; HCO3 ABG 22.5 mmol/L (22-26); Oxygen Device OXY MASK
--- NOTE | 2023-09-27 07:46 | ECG_ITS ---
[facility] Test Date: 2023-09-27 Pat Name: Pawan Marcum Department: Room: [facility] Gender: Male Occasional Caregiver: : 1955 Requested By: Lise Lindsay Order Number: [id number] Bebe MD: Honorio Scott M.D. Measurements Intervals [place] Rate: 95 P: 0 [place]: 0 QRS: 109 QRSD: 144 T: -72 QT: 482 QTc: 608 Interpretive Statements Supraventricular wide-complex rhythm INTRAVENTRICULAR CONDUCTION DELAY [130+ ms QRS DURATION] LATERAL MYOCARDIAL INFARCTION , PROBABLY RECENT [40+ ms Q WAVE AND/OR ST/T ABNORMALITY IN I/aVL/V5/V6] ACUTE MN Compared to ECG 09/22/2023 23:57:54 Intraventricular conduction delay now present Myocardial infarct finding now present Ventricular-paced complex(es) or rhythm no longer present Electronically Signed On 09-27-2023 21:36:17 WATCH DIAL PRINTER by Honorio Scott M.D. [id number]
[2023-09-27] MEDS: FUROsemide 10 mg/mL SDV 4mL 40 MG IVP ×3 (07:51→19:22)
--- NOTE | 2023-09-27 08:01 | P.PN_ITS ---
Subjective 2 Subjective: Events noted Had resp distress , hypoxia , and AMS overnight Currently on 10 L o2 by [place] BEING TRANSFERRED TO icu Medications: Reviewed: Yes Vitals/I&O/Wt Last Vital Signs Temp 98.7 F 09/27/23 03:11 Pulse 70 09/27/23 05:48 Resp 38 H 09/27/23 05:48 BP 188/97 09/27/23 05:48 Pulse Ox 97 09/27/23 05:48 O2 Del Method Oxymask 09/27/23 05:48 O2 Flow Rate 15 09/27/23 05:48 09/26/23 09/27/23 09/27/23 22:59 06:59 14:59 Intake Total 480 / 1557 240 / 1797 Balance 480 / 1557 240 / 1797 Weight last 48 hrs Weight 115.575 kg Physical Exam 2 Narrative: on oximask , confused Data 09/24/23 03:35 09/27/23 03:11 A&P Assessment and plan (1) ARUNA (acute kidney injury): (2) Acute alteration in mental status: Plan 1. Acute on chronic kidney disease: Patient's baseline creatinine is in the range of 1.5-2.5, had multiple prior ARUNA episodes. Patient followed by [facility] on a regular basis. 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 He was recently admitted and was aggressively diuresed due to CHF exacerbation -Etiology if ARUNA current likely from recent aggressive diuresis and contrast nephropathy - Resp distress with hypoxia and volume overload , on 10L NC - tranferring to ICU - Plan for CXR , 80 MG IV lasix -Renal fxn worsening , if no response to diuretics , consider dilaysis 2.History of CHF recent exacerbation and aggressive diuresis 3. Acute encephalopathy, workup negative, improved Likely metabolic 4. Acute gout flare, on steroids was on indomethacin in the past but has not taken recently. 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 History of pacemaker Patient evaluated using audiovisual cart. Time spent 20 minutes Attestations 2 Medical Necessity Statement*: per giuliano Coding Level of Care Code Acute Code for [facility] Diagnoses ARUNA (acute kidney injury) N17.9 Acute alteration in mental status R41.82
[2023-09-27] MEDS: heparin 5,000 unit/mL INJ 1 mL IV (08:37)
[2023-09-27] MEDS: heparin drip 25,000 UNIT/500 ML PREMIX 32.36 UNIT IV (08:42)
[2023-09-27] MEDS: dexmedeTOMIDine 0.9 % NaCL 400 MCG/100 ML PREMIX IV (08:51)
--- NOTE | 2023-09-27 09:21 | XRR_ITS ---
PROCEDURE INFORMATION: Exam: XR Chest Exam date and time: 09/27/2023 9:22 AM Age: 68 years old Clinical indication: Other: Assess for pulm edema TECHNIQUE: Imaging protocol: Radiologic exam of the chest. Views: 1 view. Total images: 2 COMPARISON: CR (CHEST, ) 09/22/2023 6:09 PM FINDINGS: Tubes, catheters and devices: A pacemaker device is present, its leads in appropriate position. Lungs: Nonspecific mild bibasilar opacities, favoring atelectasis or pneumonia. Pleural spaces: Unremarkable. No pleural effusion. No pneumothorax. Heart/Mediastinum: There has been an aortic valve replacement. Heart is enlarged but stable when compared to the prior exam. Bones/joints: Changes of sternotomy are noted. XR/XR chest 1V portable [id number] IMPRESSION: 1. Heart is enlarged but stable when compared to the prior exam. 2. Nonspecific mild bibasilar opacities, favoring atelectasis or pneumonia.
[2023-09-27 09:30] LABS: Platelet Count 114 10^3/cmm (157-399)
[2023-09-27 09:46] LABS: D Dimer 3.37 ug/mLFEU (0-0.59)
[2023-09-27 09:52] LABS: Troponin(5th) Baseline 190 ng/L (0-15)
--- NOTE | 2023-09-27 09:53 | PC.PHAR ---
PHARMACY TO DOSE VANCOMYCIN Vanco Initial Dosing Patient Information Sex M M/F Last Name JAMIA AGE 68 years First Name KAREN Ht 69 inches : 1955 ABW 115.575 kg Location: ICU-5 IBW 70.7 kg If loading dose given: DW 88.65 kg Loading DOSE: 1250 mg SCr 2.6 mg/dl This Dose = 14.1 mg/kg CrCl 27.9 ml/min 1st dose Cmax: 18.5 mcg/ml Vd 66.4875 liters Time elapsed: 17.0 hrs Ke 0.028 hrs-1 Serum Conc. = 11.6 mcg/ml t1/2 25 hrs Hrs until 20 mcg/ml -1.7 hrs Hrs until 15 mcg/ml 8.7 hours Hrs until 10 mcg/ml 23.4 hours Dose Tau (Freq) Levels expected Standard 1500 36 Cmax 34.9 Targets 16.92 37.7 Cpeak 33.9 25 to 40 mg/kg hours Cmin 13.6 10 to 20
[2023-09-27] MEDS: vancomycin 1,500 MG/300 ML PIGGYBACK 200 MG IV (10:07)
--- NOTE | 2023-09-27 10:32 | ECG_ITS ---
[facility] Test Date: 2023-09-27 Pat Name: Pawan Marcum Department: Room: [facility] Gender: Male Learning Manager: : 1955 Requested By: Lise Lindsay Order Number: [id number] Bebe MD: Honorio Scott M.D. Measurements Intervals [place] Rate: 72 P: 0 MN: 0 QRS: -29 QRSD: 184 T: 120 QT: 440 QTc: 483 Interpretive Statements ELECTRONIC VENTRICULAR PACEMAKER ABNORMAL RHYTHM ECG Compared to ECG 09/27/2023 08:29:48 Intraventricular conduction delay no longer present Myocardial infarct finding no longer present Electronically Signed On 09-27-2023 21:39:55 APPLE TURNER by Honorio Scott M.D. [id number]
[2023-09-27 10:33] LABS: Basophils % 0.2 %; Eosinophils % 0.1 %; Hematocrit 32.1 % (37-53); Lymphocytes % 9.6 %; Mean Corpuscular HGB Conc 30.5 g/dL (30-55); Mean Corpuscular Hemoglobin 31.2 pg (27-33); Mean Corpuscular Volume 102.2 fl (82-101); Monocytes % 9.7 %; Neutrophils # 8.55 10^3/uL (1.8-7.7); Neutrophils % 80.1 %; Nucleated Red Blood Cells % 0 %; Platelet Count 108 10^3/cmm (157-399); Red Blood Count 3.14 10^6/uL (3.85-5.65); Red Cell Distribution Width 14.9 % (12.1-15.1); White Blood Count 10.68 10^3/uL (3.29-11.43)
[2023-09-27 11:18] LABS: Glucose Point of Care 169 mg/dL (70-110)
--- NOTE | 2023-09-27 11:40 | PC.NURSE ---
Addendum entered by SHANDA May RN 09/27/23 17:03: 0800 Original Note: received from floor agitated and confused some what combative pulling out all iv sites and lines placed on monitor showed paced rhythm respritory rate rapid and laborded at this time
[2023-09-27 11:51] LABS: Add Urine Culture? Yes; Add Urine Microscopic? YES; Bacteria Urine TRACE /hpf; Bilirubin Urine Neg (Negative); Blood Urine 3+ (Negative); Glucose Urine UA Norm (Normal); Ketones Urine Negative (Negative); Leukocyte Esterase Urine Trace (Negative); Nitrate Urine Negative (Negative); Protein Urine Neg (Negative); RBC Urine 40-50 /hpf (0-2); Squamous Epithelial Cell Urine 0-4 /hpf (0-5); Urine Appearance Clear (CLEAR); Urine Color Yellow (Yellow); Urobilinogen Urine Norm (Negative); WBC Urine 0-4 /hpf (0-5); pH Urine 5 (5-7)
--- NOTE | 2023-09-27 11:57 | CTR_ITS ---
PROCEDURE INFORMATION: Exam: CT Head Without Contrast Exam date and time: 09/27/2023 12:43 PM Age: 68 years old Clinical indication: Altered mental status/memory loss; Confusion or disorientation; Additional info: Evaluate for stroke TECHNIQUE: Imaging protocol: Computed tomography of the head without contrast. Radiation optimization: All CT scans at this facility use at least one of these dose optimization techniques: automated exposure control; mA and/or kV adjustment per patient size (includes targeted exams where dose is matched to clinical indication); or iterative reconstruction. COMPARISON: CT angio headneck* [id number] 09/22/2023 5:48 PM RADIATION DOSE METRICS: Total DLP (mGy-cm): 1246.27 FINDINGS: Brain: No hemorrhage. Chronic white matter and senescent changes and chronic lacunar infarcts. Cerebral ventricles: No ventriculomegaly. Paranasal sinuses: Visualized sinuses are grossly clear. Mastoid air cells: No mastoid effusion. Bones/joints: No acute findings. Soft tissues: No acute findings. CT/CT head wo con* [id number] IMPRESSION: No acute intracranial abnormality or significant short interval change.
[2023-09-27 11:58] LABS: Troponin 5 2HR 211.9 ng/L (0-15); Troponin 5 2HR Delta 21.9 ABS# (0-10)
--- NOTE | 2023-09-27 12:00 | PC.NURSE ---
on bipap for time and to ct scan with staff monitor small bm noted x2 pericare done and swithched to highflow after sedation assist in pt calmer
--- NOTE | 2023-09-27 12:00 | PC.NURSE ---
on bipap for time
--- NOTE | 2023-09-27 12:07 | CTR_ITS ---
PROCEDURE INFORMATION: Exam: CTA Chest With Contrast Exam date and time: 09/27/2023 12:45 PM Age: 68 years old Clinical indication: Shortness of breath; Additional info: Evalute for pe. No history of recent trauma or surgery is provided. TECHNIQUE: Imaging protocol: Computed tomographic angiography of the chest with contrast. Exam focused on the arteries. 974image(s) are provided. 3D rendering (Not supervised by radiologist): MIP and/or 3D reconstructed images were created by the technologist. Radiation optimization: All CT scans at this facility use at least one of these dose optimization techniques: automated exposure control; mA and/or kV adjustment per patient size (includes targeted exams where dose is matched to clinical indication); or iterative reconstruction. Contrast material: OMNI 350; Contrast volume: 100 ml; Contrast route: INTRAVENOUS (IV); Other technique: Axial images are available with sagittal and coronal reconstruction views. Automated dose exposure control is utilized. The DLP is 608.06. COMPARISON: 1. CT angio chest [id number] 08/04/2023 10:29 AM 2. CR (CHEST, ) 09/27/2023 9:[address] kidney stone [id number] 09/23/2023 8:[address] thoracic spin wo con* [id number] 09/23/2023 12:[address] cervical spin wo con* [id number] 09/23/2023 12:[address] angio headneck* [id number] 09/22/2023 5:48 PM RADIATION DOSE METRICS: Total DLP (mGy-cm): 608.06 FINDINGS: Tubes, catheters and devices: Sternal wires appear aligned. The cardiac leads appears similar. Pulmonary arteries: The pulmonary arteries demonstrate no interval large central filling defect. There are however some subsegmental areas of incomplete filling present for example including at the superior segment and posterior basal segment right lower lobe. There is also some incomplete filling for example of the anteromedial, lateral basal junction of the left lower lobe. Aorta: There is ascending aortic, root dilatation albeit similar overall. Trachea: The central airways are grossly patent. There are some secretions demonstrated the kvng, right mainstem bronchus predominantly. Lungs: No lobar consolidation is appreciated. There is however some significant heterogeneous overall parenchymal attenuation appearing increased in the interval along with some chronic granulomatous related change. Pleural spaces: No pneumothorax or significant pleural effusion is appreciated. Heart: No significant pericardial fluid collection is appreciated. There are interventional changes about the aortic valve, root level similar. There is some mitral apparatus calcifications present. There is some cardiac chamber enlargement overall. Coronary arteries: There are coronary arterial calcifications present. Lymph nodes: There are some borderline, reactive appearing mediastinal and hilar lymph nodes similar overall. Diaphragm: There is slight asymmetric right hemidiaphragm elevation. Stomach and bowel: There is a small sliding-type hiatal hernia demonstrated with slight gastroesophageal fold thickening. Intraperitoneal space: There is a similar otherwise interval appearance of the included intraperitoneal space, upper abdominal structures. Bones/joints: Osseous alignment is maintained. No interval displaced fracture or dislocation is appreciated. There is some sternal nonunion albeit similar with some inferior wire incomplete cerclage and some wire fracture type appearance. Soft tissues: No radiopaque foreign body or subcutaneous emphysema is appreciated. Other findings: There is some motion artifact present. No other significant interval changes are appreciated. CT/CT angio chest PE protcl [id number] IMPRESSION: 1. There are some subsegmental filling defects indicative of pulmonary thromboembolism. No large central saddle type embolus is currently appreciated.The heart RV/LV ratio is 1.1. 2. No interval lobar consolidation is appreciated although there is some significant heterogeneity of the parenchyma and could be seen with some edematous as well as early interstitial inflammation or small airways disease related sequela.
[2023-09-27] MEDS: acetaminophen 1,000 MG/100 ML PIGGYBACK 400 MG IV (12:09)
[2023-09-27] MEDS: insulin lispro 100 unit/1 mL SUBCUT (12:25)
[2023-09-27] MEDS: iohexol 350 mg/mL 500 mL Btl (per mL) IV (12:57)
[2023-09-27] MEDS: piperacillin-tazobactam 3.375 GM in sodium chloride 0.9% (plus) 50 ML IV ×2 (13:03→19:27)
[2023-09-27] MEDS: dexmedeTOMIDine 0.9 % NaCL 400 MCG/100 ML PREMIX 28.89 MCG IV (13:19)
[2023-09-27 13:42] LABS: Adenovirus Not Detected (NOT DETECT); Chlamydia Pneumoniae Not Detected (NOT DETECT); Coronavirus 229E,HKU1,NL63,OC4 Not Detected (NOT DETECT); Human Metapneumovirus Not Detected (NOT DETECT); Human Rhinovirus/Enterovirus Not Detected (NOT DETECT); Influenza A Not Detected (NOT DETECT); Influenza A H1 Not Detected (NOT DETECT); Influenza A H1-2009 Not Detected (NOT DETECT); Influenza A H3 Not Detected (NOT DETECT); Influenza B Not Detected (NOT DETECT); Mycoplasma Pneumoniae Not Detected (NOT DETECT); Parainfluenza Virus Type 1 Not Detected (NOT DETECT); Parainfluenza Virus Type 2 Not Detected (NOT DETECT); Parainfluenza Virus Type 3 Not Detected (NOT DETECT); Parainfluenza Virus Type 4 Not Detected (NOT DETECT); Respiratory Syncytial Virus A Not Detected (NOT DETECT); Respiratory Syncytial Virus B Not Detected (NOT DETECT); SARS-COV-2 Not Detected (NOT DETECT)
--- NOTE | 2023-09-27 13:46 | ECG_ITS ---
[facility] Test Date: 2023-09-27 Pat Name: Pawan Marcum Department: Room: [facility]05 Gender: Male Management Services Technician: : 1955 Requested By: Lise Lindsay Order Number: [id number] Bebe MD: Honorio Scott M.D. Measurements Intervals [place] Rate: 73 P: 0 [place]: 0 QRS: -45 QRSD: 209 T: 122 QT: 487 QTc: 538 Interpretive Statements ELECTRONIC VENTRICULAR PACEMAKER premature ventricular contractions ABNORMAL RHYTHM ECG Compared to ECG 09/27/2023 10:32:47 No significant changes Electronically Signed On 09-27-2023 21:40:25 GEAR REPAIR SUPERVISOR by Honorio Scott M.D. [id number]
[2023-09-27 14:07] LABS: ABG PCO2 50.2 mmHg (35-45); ABG PH Result 7.39 (7.35-7.45); Arterial Blood Gas Hematocrit 25.6 % (42-52); Base Excess ABG 4.9 mmol/L (-2.0-2.0); Blood Gas Allen Test Pos; Blood Gas Operator Identificat CAK; Blood Gas Sample Site Radial, left; Blood Gas Sample Type Arterial; HCO3 ABG 30.5 mmol/L (22-26); Oxygen Device BIPAP; PO2 ABG 65.7 mmHg (80.0-100.0); PO2 FiO2 Ratio Arterial Blood 0
[2023-09-27 14:57] LABS: Partial Thromboplastin Time 78.3 SECONDS (23.9-36.7)
[2023-09-27 15:13] LABS: Troponin 5 6HR 245.3 ng/L (0-15)
[2023-09-27 15:14] LABS: Troponin 5 6HR Delta 55.3 ng/L (0-12)
--- NOTE | 2023-09-27 16:56 | PC.NURSE ---
Addendum entered by SHANDA May RN 09/27/23 17:02: at 0900 Original Note: precedex gtt started at this and started more iv access sites lasix prior given noted increase in urine difficutly breathing remains unable to obtain temp oral or ax.. rectal done 101.5 lab drawn and heparin gtt started
[2023-09-27 17:14] LABS: Glucose Point of Care 110 mg/dL (70-110)
[2023-09-27] MEDS: dexmedeTOMIDine 0.9 % NaCL 400 MCG/100 ML PREMIX 17.34 MCG IV (17:37)
--- NOTE | 2023-09-27 17:43 | P.PN_ITS ---
Subjective 2 Subjective: Patient had an acute change in clinical status this morning. When assessed yesterday, he had been alert awake oriented x 3, able to answer all questions, talking in complete sentences pN2 his family at bedside. He was able to ambulate independently with assistance of a walker. He had been on room air. On the night of 09/26/2023, he was noted to be confused slightly during the evening hours but was redirectable. Patient's family today reports that he has had episodic confusion episodes for one year since being diagnosed with Q fever. On his last admission he had shown intermittent confusion in the hospital and they report that on occasions he has gotten lost. This morning at 4 Am, patient had sudden clinical change where in he became hypoxic with 01 sat dropping to 80% on RA. he was started on 10lpm via oxymask. Abg at this fi02 taken at 7 AM revealed po2 of 78mmhg. He became acutely encephalopathic, now no longer able to answer any orientation questions, altered mentation, pulling at iv lines, mumbling wordsetc. He was able to move all extremities. His resp rate was up to 40, noted intercostal retractions. he was transferred to ICU for impending respiratory fatigue, started on Bipap ventilation which imporved his respiratory status. CTA chest completed later in the day showed PE, likely from multiple recent interruptions and Eliquis due to nosebleed, initial plans for LP, recently reduced dose from 5 mg twice daily to 2.5 mg twice daily on recent admission. Patient also developed a fever of 102.5 Fahrenheit during the course of the morning. Patient is blood cultures taken at admission remain negative to date. His UA was unremarkable upon admission. Chest x-ray taken today showed bilateral infiltrates likely sales development representative of pulmonary edema. Suspect that his respiratory distress today is related to a combination of pulmonary edema from needing to hold his Lasix to get his kidneys to recover and a combination of pulmonary embolism. Fever workup has additionally been ordered with repeat UA, urine culture, blood culture. Bartonella PCR initially taken during course of admission remains pending. Restarted piperacillin/tazobactam (had been discontinued just yesterday morning) and vancomycin. No leukocytosis today. Hemoglobin stable at 9.8. Creatinine worsening at 2.6 today. T. bili 1.6. AST 24, normalized compared to September 17 when it was at 531. ALT 47, improved from 328 on September 17. Alkaline phosphatase low normal at 25. Stat EKG and troponins ordered. Paced rhythm on EKG strips. Baseline troponin at 190, increasing to 211 at 2 hours and then to 45 at 6 hours. Suspect that this is related to PE and demand ischemia. Patient has been started on heparin drip and he remains on aspirin. Medications: Reviewed: Yes Vitals/I&O/Wt Last Vital Signs Temp 99.3 F 09/27/23 15:30 Pulse 70 09/27/23 16:00 Resp 22 H 09/27/23 16:00 BP 94/70 09/27/23 16:00 Pulse Ox 93 09/27/23 16:00 O2 Del Method Oxymask 09/27/23 08:00 O2 Flow Rate 40 09/27/23 14:43 FiO2 45 09/27/23 14:43 09/27/23 09/27/23 09/27/23 06:59 14:59 22:59 Intake Total 240 / 1797 536.324 / 536.324 313.884 / 850.208 Output Total 1000 / 1000 Balance 240 / 1797 536.324 / 536.324 -686.116 / -149.792 Weight last 48 hrs Weight 115.575 kg Physical Exam 2 Narrative: General: Seen multiple times during the day. When examined at 7 AM, he was in acute respiratory distress. Intercostal retractions. Respiratory rate of greater than 40. Mentation is altered. Disoriented. HEENT: PERRLA, pupils bilaterally equal and reactive, pallors not present Chest: Bilateral coarse crackles to auscultation bilaterally CVS: S1-S2 regular, no murmurs, no tachycardia, no gallops, no rubs Abdomen: Soft, nontender, no organomegaly, bowel sounds present Neuro: Moving all extremities while laying in bed, no focal deficits that are obvious. Altered mentation which is new. Data 09/27/23 09:14 09/27/23 03:11 Micro: Microbiology 09/27/23 09:20 Blood Culture - Preliminary Blood SPECIMEN COLLECTED A&P Assessment and plan (1) Acute encephalopathy: (2) Generalized weakness: (3) Bilateral foot pain: (4) Gout attack: (5) Type 2 diabetes mellitus: (6) Congestive heart failure: (7) HTN (hypertension): Qualifiers: Hypertension type: essential hypertension Qualified Code(s): I10 - Essential (primary) hypertension (8) Pulmonary HTN: (9) History of cardiac pacemaker: (10) Transaminitis: Plan # Acute encephalopathy This is resolved today, patient is back to his baseline mentation as confirmed by his at bedside. Likely contributed by Lyrica which continues to be on hold. Will additionally hold Tinazidine while in the hospital. Likely the dose of Lyrica will need to be readjusted for home use given worsened kidney function. CTA head and neck vessel negative Blood cx negative thus far Negative RVP UA unremarkable No opiates for pain management, only tylenol prn for pain # ARUNA Cr up to 3.0 today. Suspect this may be related to medications including Entresto, recent diuresis. Patient had stopped indomethacin after his last discharge on the . 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 CT of the abdomen and pelvis performed yesterday did not show any hydronephrosis or other urinary outflow tract obstruction. patient refuses Monge placement Consult nephrology # Bilateral foot pain -History of gout, suspected gout flare -Started on prednisone for the same # elevated troponins Likely related to CHF , denies any current chest pain. # Systolic diastolic CHF: Appearing to be euvolemic today. Holding off on further doses of Lasix today given worsening kidney function. Fluid restriction 1500 cc # Transaminitis: CT abdomen showing grossly normal liver. Liver enzymes trending down. T. bili normalized. May have been related to hepatic congestion. 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 Also on Eliquis 2.5 twice daily, dose recently reduced on recent admission per cardiology recommendations # History of [employer] pacemaker for complete heart block and asystole September 25, 2023 plan for today. Creatinine continues to improve. Good urine output. Patient remains alert awake oriented at baseline mental status. Continue to hold Lyrica and tizanidine. Will readjust dose closer to discharge. Gout flare much improving. Foot swelling is improved. Plan for today September 26, 2023. Patient was started on Lyrica 50 mg twice daily yesterday however it appears he was more confused overnight. Will discontinue Lyrica again. Creatinine continues to improve at 2.2. Resumed his home dose of Lasix at 40 mg twice daily. Closely monitor renal function after resuming diuretics. If stable hope to discharge in the next 24 hours.Hold prednisone in case contributing to intermittent delirium Plan for today September 27, 2023. Acute changes in clinical status as noted above in subjective. Patient has now been diagnosed to have subsegmental PE for which she is currently on a heparin infusion. Would not consider this Eliquis failure, rather suspect that it may be related to intermittent interruption in Eliquis and recently reduced dose from 5 twice daily to 2.5 twice daily. Noted elevated troponins with positive delta which may be related to newly discovered PE versus ACS. Patient is currently on a heparin drip. Aspirin has been continued as is atorvastatin. Needed to be started on BiPAP ventilation earlier today which improved his respiratory status. his breathing is less labored. Will attempt to wean down to heated high flow. Heparin drip added for PE. Acute hypoxic respiratory failure appears to be a combination of pulmonary edema likely from holding Lasix recently for ARUNA + newly discovered pulmonary embolism. Lasix 80 mg IV given today. Will continue at a dose of Lasix 40 mg IV every 12 hours. Encephalopathy likely related to acute hypoxia. Upon additional history from patient's family, he has had episodes of episodic confusion throughout the past year since being diagnosed with Q fever. Review of CAT scan from last admission showed microvascular disease and senescent changes which may be indicative of developing dementia. At any rate his acute decompensation today appears to be related to hypoxia and PE. CT head repeated today does not show any new stroke. Unable to get MRI due to presence of a cardiac pacemaker. Fever up to 102.5 Fahrenheit. Unclear source at this time. Repeat evaluation ordered with blood cultures (previously without growth from admission), UA (previously negative at admission, treated for recent enterococcal UTI until yesterday with piperacillin/tazobactam), chest x-ray showing bilateral infiltrates which given the clinical scenario appear to be pulmonary edema, however possibility of pneumonia not excluded. Respiratory viral panel negative. Patient has been on chronic suppression with rifabutin which has been continued on during the course of admission, except for 1 dose yesterday. Bartonella serology and PCR were ordered upon admission, currently pending. Transaminitis continues to improve. Ct abdomen taken during this admission on 09/23 without hydronephrosis or signs of cholecytsitis. Liver grossly normal. All updates discussed with patient's over the phone in the morning and then again in the afternoon at bedside. Discussed with her that given contrast study today and need to resume aggressive diuresis, patient is at very high risk of worsening ARUNA and RED, however weighing the risk benefit situation right now, focusing on the respiratory status is more emergent at this time. DVT ppx: heparin gtt Full code This documentation was created by [employer] cyanide pot tender software. Every effort was made to ensure accuracy of cyanide pot tender. Any obvious errors or omissions should be clarified with the author of the document. Attestations 2 Medical Necessity Statement*: as noted above. heparin drip, iv abx, bipap, resp status. Critical Care Time: The high probability of a clinically significant, sudden or life threatening deterioration of the patient's [respiratory, neuro, cardiovascular] system(s) required my full and direct attention, intervention and personal management. The critical care time is as shown. This time is in addition to time spent performing any reported procedures but includes the following: [x] Data and vital sign review and interpretation [x] Patient assessment, examination and intervention [x] Documentation [x] Medication orders and management Critical Care Time (min): 60 Coding Level of Care Code Critical Care >/= 30 minutes Diagnoses Acute encephalopathy G93.40 Generalized weakness R53.1 Bilateral foot pain M79.671; M79.672 Gout attack M10.9 Type 2 diabetes mellitus E11.9 Congestive heart failure I50.9 Essential hypertension I10 Hypertension type: essential hypertension Pulmonary HTN I27.20 History of cardiac pacemaker Z95.0 Transaminitis R74.01
[2023-09-27 19:33] LABS: B.Henselae Yes Test Yes; Bartonella Henselae IgG AB Positive
[2023-09-27 20:13] LABS: Glucose Point of Care 136 mg/dL (70-110)
[2023-09-27 20:52] LABS: Partial Thromboplastin Time 85.1 SECONDS (23.9-36.7)
[2023-09-27] MEDS: pantoprazole 40 mg SDV IVP (22:24)
[2023-09-27] MEDS: dexmedeTOMIDine 0.9 % NaCL 400 MCG/100 ML PREMIX 20.23 MCG IV (23:41)
[2023-09-28] VITALS (46 sets, daily range): BP systolic 116–177; BP diastolic 82–125; PULSE 0–76; RESP 14–37; TEMP 36.1–37.2; O2SAT 93–100
[2023-09-28] MEDS: heparin drip 25,000 UNIT/500 ML PREMIX 25 UNIT IV (01:24)
--- NOTE | 2023-09-28 02:51 | PC.NURSE ---
AMS: pt is confused, pulling at cobb catheter and telemetry monitoring. Kicking legs at nursing staff. Pulling at restrains. Pt states, I'm gonna kill you all when I get out of here . See MAR for Precedex titration. Security on standby.
--- NOTE | 2023-09-28 03:16 | PC.NURSE ---
Amlodipine: Amlodipine 10mg PO ordered. NPO order. Pt is confused and uncooperative. Dr. Matthews notified @[id number], no new orders at this time.
[2023-09-28 03:36] LABS: Basophils # 0.1 10^3/uL (0.0-0.1); Basophils % 0.7 %; Eosinophils # 0.1 10^3/uL (0.0-0.8); Eosinophils % 1.2 %; Hematocrit 29.6 % (37-53); Lymphocytes # 1.2 10^3/uL (0.8-4.8); Lymphocytes % 15.7 %; Mean Corpuscular HGB Conc 30.4 g/dL (30-55); Mean Corpuscular Hemoglobin 30.8 pg (27-33); Mean Corpuscular Volume 101.4 fl (82-101); Mean Platelet Volume 13.4 fL (7.4-10.4); Monocytes # 0.4 10^3/uL (0.2-0.9); Monocytes % 5.3 %; Neutrophils # 5.68 10^3/uL (1.8-7.7); Neutrophils % 76.8 %; Nucleated Red Blood Cells % 0 %; Platelet Count 108 10^3/cmm (157-399); Red Blood Count 2.92 10^6/uL (3.85-5.65); Red Cell Distribution Width 14.7 % (12.1-15.1); White Blood Count 7.39 10^3/uL (3.29-11.43)
[2023-09-28 03:49] LABS: Partial Thromboplastin Time 55.7 SECONDS (23.9-36.7)
[2023-09-28] MEDS: dexmedeTOMIDine 0.9 % NaCL 400 MCG/100 ML PREMIX 26 MCG IV ×2 (03:53→07:51)
[2023-09-28 04:00] LABS: Alanine Aminotransferase 35 U/L (0-41); Albumin Level 3.6 g/dL (3.5-5.2); Alkaline Phosphatase 24 U/L (40-130); Anion Gap 15.4 (5-19); Aspartate Amino Transferase 29 U/L (0-40); Blood Urea Nitrogen 74 mg/dL (8-23); Calcium 9.5 mg/dL (8.5-10.5); Carbon Dioxide 27 mmol/L (22-29); Chloride 107 mmol/L (98-107); Globulin 3.5 g/dL (1.3-4.6); Glomerular Filtration Rate 20.3 mL/min (90-130); Glucose 144 mg/dL (65-115); Osmolality Calculated 324 mOsm/kg (285-295); Potassium 4.4 mmol/L (3.5-5.1); Sodium 145 mmol/L (136-145); Total Bilirubin 1.9 mg/dL (0.15-1.2); Total Protein 7.1 g/dL (6.6-8.7)
--- NOTE | 2023-09-28 04:11 | PC.NURSE ---
Addendum entered by Lamar Montoya RN 09/28/23 04:28: Called Dr. Matthews @0427. New order for 2mg IM Haldol NOW, wait 30minutes, if agitation has not decreased, 2mg IM Ativan. Original Note: Screaming: Pt is screaming help continuously. Asked the pt was we can do to help him. He responded, There's not a god dammed thing you can do for me bitch . Vital signs stable. Pt remains connected to continuos monitoring.
[2023-09-28] MEDS: haloperidol inj 5 mg/mL INJ 1 mL 2 MG IM (04:33)
[2023-09-28] MEDS: piperacillin-tazobactam 3.375 GM in sodium chloride 0.9% (plus) 50 ML IV ×3 (04:38→19:51)
[2023-09-28] MEDS: FUROsemide 10 mg/mL SDV 4mL 40 MG IVP ×2 (06:09→18:32)
[2023-09-28 09:20] LABS: Glucose Point of Care 160 mg/dL (70-110)
--- NOTE | 2023-09-28 09:20 | PC.SOCIAL ---
IMM Update pg 2 of IMM updated. Copy left @ bedside. Patient is currently confused. Copy in chart dated, initialed.
[2023-09-28] MEDS: insulin lispro 100 unit/1 mL SUBCUT ×2 (09:46→17:19)
[2023-09-28 10:31] LABS: ABG PCO2 40.9 mmHg (35-45); ABG PH Result 7.43 (7.35-7.45); Alveolar-Arterial Oxygen Gradi 17.3 mmHg (5-10); Arterial Blood Gas Hematocrit 28.3 % (42-52); Base Excess ABG 2.6 mmol/L (-2.0-2.0); Blood Gas Allen Test Pos; Blood Gas Operator Identificat MONRO; Blood Gas Sample Site Radial, right; Blood Gas Sample Type Arterial; Carboxyhemoglobin 1.9 %THgb (0.4-20.1); HCO3 ABG 27.2 mmol/L (22-26); HGB O2 Sat 94.3 % (95-100); Ionized Calcium Level - ABG 1.3 mmol/L (1.1-1.4); Methemoglobin 0.6 % (0.4-1.5); Oxygen Device NC; Oxygen Saturation ABG 96.7; PO2 ABG 82.4 mmHg (80.0-100.0); PO2 FiO2 Ratio Arterial Blood 0; Potassium Level - ABG 3.8 mmol/L (3.5-5.0); Total Hemoglobin 9.2 g/dL (14-18)
[2023-09-28 10:31] LABS: Partial Thromboplastin Time 52.5 SECONDS (23.9-36.7)
--- NOTE | 2023-09-28 11:19 | P.PN_ITS ---
Subjective 2 Subjective: This morning patient was experiencing visual hallucinations, I turned off his Precedex this, requested to ABG Creatinine worsened Currently on nasal cannula No febrile episodes since yesterday Delta troponin positive Vitals/I&O/Wt Last Vital Signs Temp 96.9 F L 09/28/23 08:00 Pulse 74 09/28/23 10:41 Resp 22 H 09/28/23 10:41 BP 177/125 09/28/23 10:30 Pulse Ox 96 09/28/23 10:41 O2 Del Method High Flow Nasal Cannula 09/28/23 08:00 O2 Flow Rate 40 09/28/23 10:41 FiO2 37 09/28/23 10:41 09/27/23 09/28/23 09/28/23 22:59 06:59 14:59 Intake Total 600.564 / 1136.888 413.145 / 1550.033 58.140 / 58.140 Output Total 1000 / 1000 1450 / 2450 Balance -399.436 / 136.888 -1036.855 / -899.967 58.140 / 58.140 Weight last 48 hrs Weight 110.54 kg Physical Exam 2 Narrative: Patient is oriented to himself Visual hallucination Patient thinks he is in the custodial right now Afebrile Currently on nasal cannula I did not appreciate lower extremity swelling Abdomen distended nontender Bilateral breath sound without wheezing or crackles S1, S2 Data 09/28/23 03:05 09/28/23 03:05 Micro: Microbiology 09/27/23 11:05 Urine Culture - Preliminary Urine,Clean Catch 09/27/23 09:20 Blood Culture - Preliminary Blood NEGATIVE TO DATE A&P Assessment and plan (1) HTN (hypertension): Qualifiers: Hypertension type: essential hypertension Qualified Code(s): I10 - Essential (primary) hypertension (2) Congestive heart failure: (3) Nonischemic cardiomyopathy: (4) Pulmonary HTN: (5) Nonrheumatic aortic (valve) stenosis: (6) History of cardiac pacemaker: (7) Atrial fibrillation: (8) Ascending aortic aneurysm: (9) Diabetic foot: (10) Anticoagulation adequate with anticoagulant therapy: (11) Type 2 diabetes mellitus: (12) ARUNA (acute kidney injury): (13) Diarrhea: (14) Chronic kidney disease: (15) Generalized muscle weakness: (16) Daytime sleepiness: (17) Confusion: (18) Acute alteration in mental status: (19) Acute encephalopathy: (20) Acute and chronic respiratory failure with hypoxia: (21) Generalized weakness: Plan Metabolic encephalopathy likely related to UTI with concern for pneumonia I will start patient on doxycycline as well Hold off on Lyrica and tizanidine I have turned off Precedex drip He does have hematuria Continue antibiotics No hydronephrosis or kidney stone Rule out prostatitis ARUNA Contrast-induced nephropathy Acute on chronic kidney disease cardiorenal Received contrast yesterday for CTA Acute hypoxia related to PE Wean off oxygen Significant delta troponin likely related to PE Systolic diastolic CHF exacerbation continue diuresis for now Abnormal transaminases: Improving 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 For bioprosthetic valve he is on Eliquis 5 mg twice daily which was reduced to 2.5 because of worsening of creatinine Patient has a [employer] pacemaker for complete heart block and asystole in the past CT scan did not reveal hiatal hernia, GERD, right heart strain Attestations 2 Medical Necessity Statement*: Continue ICU management Diagnoses Essential hypertension I10 Hypertension type: essential hypertension Congestive heart failure I50.9 Nonischemic cardiomyopathy I42.8 Pulmonary HTN I27.20 Nonrheumatic aortic (valve) stenosis I35.0 History of cardiac pacemaker Z95.0 Atrial fibrillation I48.91 Ascending aortic aneurysm I71.21 Diabetic foot E11.8 Anticoagulation adequate with anticoagulant therapy Z79.01 Type 2 diabetes mellitus E11.9 ARUNA (acute kidney injury) N17.9 Diarrhea R19.7 Chronic kidney disease N18.9 Generalized muscle weakness M62.81 Daytime sleepiness R40.0 Confusion R41.0 Acute alteration in mental status R41.82 Acute encephalopathy G93.40 Acute and chronic respiratory failure with hypoxia J96.21 Generalized weakness R53.1
--- NOTE | 2023-09-28 11:32 | PC.OT ---
OT TREATMENT ATTEMPTED; PER NURSING PT IS AGGRESSIVE AT THIS TIME; NURSING REQUESTS HOLD
--- NOTE | 2023-09-28 12:08 | P.PN_ITS ---
Subjective 2 Subjective: s/p CTA showed PE Medications: Reviewed: Yes Vitals/I&O/Wt Last Vital Signs Temp 96.9 F L 09/28/23 08:00 Pulse 74 09/28/23 10:41 Resp 22 H 09/28/23 10:41 BP 177/125 09/28/23 10:30 Pulse Ox 96 09/28/23 10:41 O2 Del Method High Flow Nasal Cannula 09/28/23 08:00 O2 Flow Rate 40 09/28/23 10:41 FiO2 37 09/28/23 10:41 09/27/23 09/28/23 09/28/23 22:59 06:59 14:59 Intake Total 600.564 / 1136.888 413.145 / 1550.033 58.140 / 58.140 Output Total 1000 / 1000 1450 / 2450 Balance -399.436 / 136.888 -1036.855 / -899.967 58.140 / 58.140 Weight last 48 hrs Weight 110.54 kg Physical Exam 2 Narrative: on oximask , confused Data 09/28/23 03:05 09/28/23 03:05 Micro: Microbiology 09/27/23 11:05 Urine Culture - Preliminary Urine,Clean Catch 09/27/23 09:20 Blood Culture - Preliminary Blood NEGATIVE TO DATE A&P Assessment and plan (1) ARUNA (acute kidney injury): (2) Acute alteration in mental status: Plan 1. Acute on chronic kidney disease: Patient's baseline creatinine is in the range of 1.5-2.5, had multiple prior ARUNA episodes. Patient followed by [facility] on a regular basis. 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 He was recently admitted and was aggressively diuresed due to CHF exacerbation -Etiology if ARUNA current likely from recent aggressive diuresis and contrast nephropathy -CTA showed PE , on heparin drip , renal fxn might get worse due to contrast exposure -on 40 % fio2 via oximask , if no response to diuretics , will need dilaysis 2.History of CHF recent exacerbation and aggressive diuresis 3. Acute encephalopathy, workup negative, improved Likely metabolic 4. Acute gout flare, on steroids was on indomethacin in the past but has not taken recently. 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 History of pacemaker Patient evaluated using audiovisual cart. Time spent 20 minutes Attestations 2 Medical Necessity Statement*: per joe Coding Level of Care Code Acute Code for Chg Fwd Diagnoses ARUNA (acute kidney injury) N17.9 Acute alteration in mental status R41.82
[2023-09-28 12:31] LABS: Glucose Point of Care 125 mg/dL (70-110)
[2023-09-28 12:37] LABS: Prostate Specific Antigen Scr 7.36 ng/mL (0-4)
[2023-09-28] MEDS: albumin 25 G/100 ML BAG 60 G IV (13:40)
[2023-09-28 16:11] LABS: Amphetamines Screen Urine Negative (Negative); Barbiturates Screen Urine Negative (Negative); Benzodiazepines Screen Urine Positive (Negative); Cocaine Screen Urine Negative (Negative); Opiate Screen Urine Negative (Negative); PCP Screen Urine Negative (Negative); THC Screen Urine Negative (Negative)
[2023-09-28 16:40] LABS: E. Chaffeensis AB IGG <1:64; E. Chaffeensis AB IGM <1:20
[2023-09-28 17:17] LABS: Glucose Point of Care 220 mg/dL (70-110)
[2023-09-28] MEDS: doxycycline 100 mg Tablet PO (17:19)
[2023-09-28 17:43] LABS: Partial Thromboplastin Time 49.9 SECONDS (23.9-36.7)
[2023-09-28 20:29] LABS: Glucose Point of Care 84 mg/dL (70-110)
[2023-09-28] MEDS: heparin drip 25,000 UNIT/500 ML PREMIX 29.63 UNIT IV (20:40)
[2023-09-28] MEDS: vancomycin 1,500 MG/300 ML PIGGYBACK 200 MG IV (22:09)
[2023-09-28] MEDS: pantoprazole 40 mg SDV IVP (23:16)
[2023-09-29] VITALS (17 sets, daily range): BP systolic 115–157; BP diastolic 73–113; PULSE 63–82; RESP 14–25; TEMP 36.8–36.9; O2SAT 86–100; BMI 35.9
[2023-09-29 00:52] LABS: Partial Thromboplastin Time 54.5 SECONDS (23.9-36.7)
[2023-09-29] MEDS: heparin 5,000 unit/mL INJ 1 mL IV (00:58)
[2023-09-29] MEDS: amlodipine 10 mg Tablet PO (03:40)
[2023-09-29] MEDS: piperacillin-tazobactam 3.375 GM in sodium chloride 0.9% (plus) 50 ML IV (03:40)
[2023-09-29 04:41] LABS: Basophils % 0.3 %; Eosinophils # 0.2 10^3/uL (0.0-0.8); Eosinophils % 2.3 %; Hematocrit 29.5 % (37-53); Lymphocytes # 0.8 10^3/uL (0.8-4.8); Lymphocytes % 10.2 %; Mean Corpuscular HGB Conc 30.5 g/dL (30-55); Mean Corpuscular Volume 101.7 fl (82-101); Mean Platelet Volume 12.9 fL (7.4-10.4); Monocytes # 0.4 10^3/uL (0.2-0.9); Monocytes % 5.2 %; Neutrophils % 81.6 %; Nucleated Red Blood Cells % 0 %; Platelet Count 105 10^3/cmm (157-399); Red Cell Distribution Width 14.6 % (12.1-15.1); White Blood Count 7.35 10^3/uL (3.29-11.43)
[2023-09-29 05:04] LABS: Alanine Aminotransferase 28 U/L (0-41); Albumin Level 3.6 g/dL (3.5-5.2); Alkaline Phosphatase 24 U/L (40-130); Anion Gap 17.7 (5-19); Aspartate Amino Transferase 34 U/L (0-40); Blood Urea Nitrogen 65 mg/dL (8-23); Calcium 9.5 mg/dL (8.5-10.5); Carbon Dioxide 27 mmol/L (22-29); Chloride 102 mmol/L (98-107); Globulin 3.3 g/dL (1.3-4.6); Glomerular Filtration Rate 24.8 mL/min (90-130); Glucose 98 mg/dL (65-115); Osmolality Calculated 315 mOsm/kg (285-295); Potassium 3.7 mmol/L (3.5-5.1); Sodium 143 mmol/L (136-145); Total Bilirubin 1.8 mg/dL (0.15-1.2); Total Protein 6.9 g/dL (6.6-8.7)
[2023-09-29] MEDS: FUROsemide 10 mg/mL SDV 4mL 40 MG IVP (06:31)
--- NOTE | 2023-09-29 06:45 | P.PN_ITS ---
Subjective 2 Subjective: eventss noted Medications: Reviewed: Yes Vitals/I&O/Wt Last Vital Signs Temp 98.4 F 09/29/23 04:00 Pulse 70 09/29/23 04:00 Resp 20 H 09/29/23 04:00 BP 135/94 09/29/23 04:00 Pulse Ox 100 09/29/23 04:00 O2 Del Method High Flow Nasal Cannula 09/29/23 04:00 O2 Flow Rate 6 09/29/23 04:00 FiO2 28 09/28/23 16:00 09/28/23 09/28/23 09/29/23 14:59 22:59 06:59 Intake Total 830.223 / 717.103 3027.000 / 1840.223 977.903 / 2818.126 Output Total 950 / 950 950 / 1900 1700 / 3600 Balance -119.777 / -119.777 60.000 / -59.777 -722.097 / -781.874 Weight last 48 hrs Weight 110.54 kg Weight 110.54 kg Physical Exam 2 Narrative: on oximask , confused Data 09/29/23 04:04 09/29/23 04:04 Micro: Microbiology 09/27/23 11:05 Urine Culture - Preliminary Urine,Clean Catch 09/27/23 09:20 Blood Culture - Preliminary Blood NEGATIVE TO DATE A&P Assessment and plan (1) ARUNA (acute kidney injury): (2) Acute alteration in mental status: Plan 1. Acute on chronic kidney disease: Patient's baseline creatinine is in the range of 1.5-2.5, had multiple prior ARUNA episodes. Patient followed by [facility] on a regular basis. 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 He was recently admitted and was aggressively diuresed due to CHF exacerbation -Etiology if ARUNA current likely from recent aggressive diuresis and contrast nephropathy -CTA showed PE , - renal fxn improving 2.History of CHF recent exacerbation and aggressive diuresis 3. Acute encephalopathy, workup negative, improved Likely metabolic 4. Acute gout flare, on steroids was on indomethacin in the past but has not taken recently. 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 History of pacemaker OK to DC and follow with Nephrology Patient evaluated using audiovisual cart. Time spent 20 minutes Attestations 2 Medical Necessity Statement*: per giuliano Coding Level of Care Code Acute Code for Chg Fwd Diagnoses ARUNA (acute kidney injury) N17.9 Acute alteration in mental status R41.82
[2023-09-29 07:37] LABS: Glucose Point of Care 95 mg/dL (70-110)
[2023-09-29 08:05] LABS: Partial Thromboplastin Time 63.3 SECONDS (23.9-36.7)
[2023-09-29] MEDS: doxycycline 100 mg Tablet PO (08:34)
[2023-09-29] MEDS: atorvastatin 40 mg Tablet PO (08:34)
--- NOTE | 2023-09-29 09:08 | PC.NURSE ---
09/29/23 0900 Removed cobb cath which has 1100 mod yellow clear urine in it. Per nurses notes cobb was placed on 09/26/23 at 0715. I removed 9ml from balloon. Cobb intact. Patient joe well, but did have some discomfort on removal. at bedside. spoke with patient and says if ambulate without O2 well and nephrology is ok, may get to go home today.
--- NOTE | 2023-09-29 10:34 | P.DS_ITS ---
Discharge Providers Date of Admission: 09/22/23 21:41 Date of Discharge: September 29, 2023 Attending Provider at Admission: Josias Matthews MD Attending Provider at Discharge: Riddhi Harris MD Primary Care Provider: Diana Butcher MD Diagnoses at Discharge Discharge Diagnosis (1) ARUNA (acute kidney injury): Status: Acute (2) Acute alteration in mental status: Status: Acute Reason for Visit Reason for Visit: stroke like symptoms Hospital Course Hospital Course Pawan Marcum is a 68 year old male with a past medical history of [employer] pacemaker for complete heart block, chronic kidney disease, gout, [id number] type 2 diabetes mellitus, history of aortic aneurysm repair, history of aortic valve stenosis with replacement bioprosthetic valve, history of pacemaker placement, systolic diastolic CHF exacerbation, history of Q fever, cat scratch fever, atrial fibrillation on Eliquis therapy recent hospitalization for systolic diastolic CHF exacerbation, NSTEMI, presented to the [facility] with chief complaint of weakness bilateral foot pain and confusion. 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 During this hospitalization patient suffered from acute on chronic kidney disease related to overdiuresis nephrology was consulted, his baseline creatinine seems to be around 2.2, at the time of discharge his creatinine is around 2.6, patient received albumin and p.o. Lasix dosages during hospitalization,, please note patient had acute change in neurological status on 09/27, extensive infectious workup was done which showed possibility related to cystitis, CT abdomen pelvis unremarkable other than bladder wall thickening, CT chest revealed PE, CT head unremarkable, ABG normal, no signs of meningitis, patient had 1 episode of fever when antibiotics were discontinued however he remained afebrile after we resumed broad-spectrum antibiotics. Patient is requiring 3 L of oxygen, home oxygen requested before discharge, CT chest showing bilateral infiltrate likely pulm edema, patient also suffering from contrast-induced nephropathy because he received contrast for CTA chest w hich showed PE. He was put on heparin drip, at the time of discharge will put him back on Eliquis 5 mg twice daily regimen. Troponin elevation like related to PE, not complaining of active chest pain. Echo unremarkable. Rester panel negative. Patient mentation has improved since Thursday he is able to talk communicate appropriately As per the family he is back to his baseline. Regarding his PE we will not consider Eliquis as failure of treatment because patient had a lot of dosage fluctuation for his anticoagulating agent during hospitalization related to worsening creatinine. If patient keeps having febrile events with encephalopathy would recommend MRI head to rule out endocarditis related encephalopathy which will need treatment [facility] Physical Exam Narrative: Awake and alert GCS 15 Clinically euvolemic Currently on 3 L Ple[place] alert Eating breakfast Voiding urine Urinary Catheter Management: Salazar: Cath Placed During This Visit: yes, but has since been removed by the nurse Reason for Continuing Indwelling Catheter: Accurate Measurement of Urinary Output in Critically Ill Patients Urinary Catheter Date of Insertion: 09/26/23 Urinary Catheter Time of Insertion: 07:15 Date Urinary Catheter Removed: 09/29/23 Time Urinary Catheter Discontinued: 09:00 Discharge Data Studies Completed and Pending Completed Studies During Hospitalization Category Date Time Status CT angio headneck* 57968/80097 Stat Cat Scan 09/22/23 17:[address] cervical spin wo con* [id number] Routine Cat Scan 09/22/23 23:[address] head wo con* [id number] Routine Cat Scan 09/27/23 11:[address] kidney stone 56505 Routine Cat Scan 09/23/23 15:[address] lumbar spine wo con* [id number] Routine Cat Scan 09/22/23 23:[address] thoracic spin wo con* [id number] Routine Cat Scan 09/22/23 23:53 Completed CTA PE [CT angio chest PE protcl [id number]] Routine Cat Scan 09/27/23 12:07 Completed CXRP [XR chest 1V portable [id number]] Stat Exams 09/27/23 09:21 Completed XR chest 1V portable [id number] Stat Exams 09/22/23 17:46 Completed XR foot LT 2V 45080 Routine Exams 09/22/23 22:50 Completed XR foot RT 2V 15905 Routine Exams 09/22/23 22:50 Completed US renal BI* [id number] Routine Ultrasound 09/24/23 14:00 Completed Pending at discharge Category Date Time Status Blood Culture Stat Lab 09/27/23 09:19 Results Blood Cultures ([facility]) Routine Lab 09/22/23 23:14 Results Blood Cultures ([facility]) Routine Lab 09/22/23 23:22 Results Blood Cultures ([facility]) Routine Lab 09/27/23 09:15 Received Miscellaneous Test Routine Lab 09/22/23 23:27 Received PTT [Partial Thromboplastin Time] Timed Lab 09/29/23 13:00 Ordered Platelet Count Q2D Lab 10/01/23 04:00 Ordered Tick Panel Stat Lab 09/22/23 23:27 Results Radiology Impressions Head/Neck CTA 09/22/23 17:46 IMPRESSION: No large vessel occlusion. ASSESSMENT: ASPECTS ([place] Stroke Program Early CT Score) is 10. IMPRESSION: No stenosis or occlusion. REFERENCES: NASCET CRITERIA. The degree of stenosis in the cervical segment of the internal carotid artery is based on NASCET criteria. Normal is no stenosis. Mild is less than 50% stenosis. Moderate is 50-69% stenosis. Severe is 70% to 99% stenosis. Total occlusion is no detectable patent lumen. Foot X-Ray 09/22/23 22:50 IMPRESSION: 1. No acute fracture. 2. Moderate to severe degenerative changes at the 1st metatarsophalangeal joint. Cervical Spine CT 09/22/23 23:53 IMPRESSION: 1. No evidence of acute fracture or traumatic malalignment in the cervical spine. 2. Multilevel degenerative disc and joint disease as outlined. 3. If there is clinical concern for spinal infection, MRI of the cervical spine without and with contrast could be obtained for further evaluation. 4. There is a 1.6 cm hypodense nodule in the right thyroid lobe. A nonemergent thyroid ultrasound is recommended for further evaluation. COMMENTS: Consistent with the [employer]'s Incidental Findings Committee white paper (J Am Ernie Radiol 2015): In patients aged 35 years and older with an incidental thyroid nodule equal to or greater than 1.[address], MRI or extrathyroidal US, further evaluation with dedicated thyroid US is recommended for patients with normal life expectancy and without comorbidities. For smaller nodules without suspicious features, no further evaluation or follow up is recommended. Lumbar Spine CT 09/22/23 23:53 IMPRESSION: 1. No evidence of acute fracture or traumatic malalignment in the lumbar spine. 2. Multilevel degenerative disc and joint disease as detailed above. 3. If there is clinical concern for intracranial infection, an MRI of the lumbar spine without and with contrast could be obtained for further evaluation. Thoracic Spine CT 09/22/23 23:53 IMPRESSION: 1. No evidence of acute fracture or traumatic malalignment in the thoracic spine. 2. Multiple degenerative disc and joint disease as outlined. 3. If there is clinical concern, MRI of the thoracic spine could be obtained for further evaluation. Abdomen/Pelvis CT 09/23/23 15:50 IMPRESSION: 1. No hydronephrosis. 2. Resolved right posterior perirenal fluid collection. 3. Thickened urinary bladder wall, recommend urinalysis to evaluate for UTI. 4. Constipation. COMMENTS: Consistent with the [employer]'s Incidental Findings Committee white paper (J Am Ernie Radiol 2018): Any incidental renal lesion less than 1 cm or classified as too small to characterize, or any incidental cystic renal lesion characterized as simple-appearing, is likely benign. No follow-up imaging is recommended for these lesions per consensus recommendations based on imaging criteria. Chest X-Ray 09/27/23 09:21 IMPRESSION: 1. Heart is enlarged but stable when compared to the prior exam. 2. Nonspecific mild bibasilar opacities, favoring atelectasis or pneumonia. Head CT 09/27/23 11:57 IMPRESSION: No acute intracranial abnormality or significant short interval change. Chest CTA 09/27/23 12:07 IMPRESSION: 1. There are some subsegmental filling defects indicative of pulmonary thromboembolism. No large central saddle type embolus is currently appreciated.The heart RV/LV ratio is 1.1. 2. No interval lobar consolidation is appreciated although there is some significant heterogeneity of the parenchyma and could be seen with some edematous as well as early interstitial inflammation or small airways disease related sequela. ADDENDUM: 09/27/23 1405 THIS REPORT CONTAINS FINDINGS THAT MAY BE CRITICAL TO PATIENT CARE. The case was discussed via telephone conference at 2:03 PM [facility]AG [facility]DLER on 09/27/2023 with ERNESTINA YOUNG. The findings were acknowledged and understood. Laboratory Results WBC 7.35 10^3/uL (3.29-11.43) 09/29/23 04:04 RBC 2.90 10^6/uL (3.85-5.65) L 09/29/23 04:04 Hgb 9.00 g/dL (11.27-16.99) L 09/29/23 04:04 Hct 29.5 % (37-53) L 09/29/23 04:04 MCV 101.7 fl (82-101) H 09/29/23 04:04 MCH 31.0 pg (27-33) 09/29/23 04:04 MCHC 30.5 g/dL (30-55) 09/29/23 04:04 RDW 14.6 % (12.1-15.1) 09/29/23 04:04 Plt Count 105 10^3/cmm (157-399) L 09/29/23 04:04 MPV 12.9 fL (7.4-10.4) H 09/29/23 04:04 Neut % (Auto) 81.6 % 09/29/23 04:04 Lymph % (Auto) 10.2 % 09/29/23 04:04 [place] % (Auto) 5.2 % 09/29/23 04:04 Eos % (Auto) 2.3 % 09/29/23 04:04 Baso % (Auto) 0.3 % 09/29/23 04:04 Neut # (Auto) 6.00 10^3/uL (1.8-7.7) 09/29/23 04:04 Lymph # (Auto) 0.8 10^3/uL (0.8-4.8) 09/29/23 04:04 [place] # (Auto) 0.4 10^3/uL (0.2-0.9) 09/29/23 04:04 Eos # (Auto) 0.2 10^3/uL (0.0-0.8) 09/29/23 04:04 Baso # (Auto) 0.0 10^3/uL (0.0-0.1) 09/29/23 04:04 Nucleated RBC % (auto) 0 % 09/29/23 04:04 Nucleated RBCs # 0.0 /100WBC 09/29/23 04:04 ESR 52 mm/hr (0-10) H 09/22/23 23:14 PT 17.20 SECONDS (12.1-14.9) H 09/22/23 18:21 INR 1.36 (0.8-1.2) H 09/22/23 18:21 APTT 63.3 SECONDS (23.9-36.7) H 09/29/23 07:04 D-Dimer 3.37 ug/mLFEU (0-0.59) H 09/27/23 09:14 Specimen Type Arterial 09/28/23 10:19 Sample Site Radial, right 09/28/23 10:19 ABG pH 7.43 (7.35-7.45) 09/28/23 10:19 ABG pCO2 40.9 mmHg (35-45) 09/28/23 10:19 ABG pO2 82.4 mmHg (80.0-100.0) 09/28/23 10:19 ABG PO2/FiO2 Ratio 0 09/28/23 10:19 ABG HCO3 27.2 mmol/L (22-26) H 09/28/23 10:19 ABG O2 Saturation 96.7 09/28/23 10:19 ABG Base Excess 2.6 mmol/L (-2.0-2.0) H 09/28/23 10:19 Anthony Test Pos 09/28/23 10:19 A-a O2 Gradient 17.3 mmHg (5-10) H 09/28/23 10:19 Hematocrit 28.3 % (42-52) L 09/28/23 10:19 Hgb O2 Saturation 94.3 % (95-100) L 09/28/23 10:19 Carboxyhemoglobin 1.9 %THgb (0.4-20.1) 09/28/23 10:19 Methemoglobin 0.6 % (0.4-1.5) 09/28/23 10:19 Total Hemoglobin 9.2 g/dL (14-18) L 09/28/23 10:19 Sodium 145.0 mmol/L (131-143) H 09/28/23 10:19 Potassium 3.8 mmol/L (3.5-5.0) 09/28/23 10:19 Glucose 150.0 mg/dL (70-115) H 09/28/23 10:19 Ionized Calcium 1.3 mmol/L (1.1-1.4) 09/28/23 10:19 O2 Delivery Device Nc 09/28/23 10:19 O2 Liters/Min 40.0 % 09/28/23 10:19 FiO2 37.0 % 09/28/23 10:19 Rn Discharge ID [place] 09/28/23 10:19 Sodium 143 mmol/L (136-145) 09/29/23 04:04 Potassium 3.7 mmol/L (3.5-5.1) 09/29/23 04:04 Chloride 102 mmol/L (98-107) 09/29/23 04:04 Carbon Dioxide 27 mmol/L (22-29) 09/29/23 04:04 Anion Gap 17.7 (5-19) 09/29/23 04:04 BUN 65 mg/dL (8-23) H 09/29/23 04:04 Creatinine 2.6 mg/dL (0.7-1.2) H 09/29/23 04:04 GFR Calculation 24.8 mL/min (90-130) L 09/29/23 04:04 Glucose 98 mg/dL (65-115) 09/29/23 04:04 POC Glucose 95 mg/dL (70-110) 09/29/23 07:26 Calculated Osmolality 315 mOsm/kg (285-295) H 09/29/23 04:04 Lactic Acid 1.0 mmol/L (0.5-2.2) 09/22/23 23:14 Lactate 3.0 mmol/L (0.5-2.2) H 09/27/23 09:20 Uric Acid 11.2 mg/dL (3.4-7.0) H 09/22/23 23:14 Calcium 9.5 mg/dL (8.5-10.5) 09/29/23 04:04 Phosphorus 3.6 mg/dL (2.5-4.5) 09/23/23 05:11 Magnesium 2.1 mg/dL (1.7-2.3) 09/23/23 05:11 Total Bilirubin 1.8 mg/dL (0.15-1.2) H 09/29/23 04:04 AST 34 U/L (0-40) 09/29/23 04:04 ALT 28 U/L (0-41) 09/29/23 04:04 Alkaline Phosphatase 24 U/L (40-130) L 09/29/23 04:04 Ammonia 32 umol/L (16-60) 09/22/23 23:14 Troponin T Baseline 190 ng/L (0-15) H* 09/27/23 09:14 Troponin T 120 Minute 211.9 ng/L (0-15) H 09/27/23 11:09 Delta Troponin T 21.9 ABS# (0-10) H* 09/27/23 11:09 Troponin T Hi Sens 6Hr 245.3 ng/L (0-15) H 09/27/23 14:27 Troponin T Hi Sens 6Hr Delta 55.3 ng/L (0-12) H* 09/27/23 14:27 C-Reactive Protein 94.7 mg/L (0.0-4.9) H 09/22/23 23:14 Total Protein 6.9 g/dL (6.6-8.7) 09/29/23 04:04 Albumin 3.6 g/dL (3.5-5.2) 09/29/23 04:04 Globulin 3.3 g/dL (1.3-4.6) 09/29/23 04:04 PSA Screen 7.36 ng/mL (0-4) H 09/28/23 03:05 Procalcitonin 0.46 ng/mL (0-0.5) 09/22/23 23:14 TSH 1.58 uIU/mL (0.27-4.20) 09/22/23 23:14 Urine Color Yellow (Yellow) 09/27/23 11:05 Urine Appearance Clear (CLEAR) 09/27/23 11:05 Urine pH 5 (5-7) 09/27/23 11:05 Ur Specific [place] 1.010 (1.005-1.030) 09/27/23 11:05 Urine Protein Neg (Negative) 09/27/23 11:05 Urine Glucose (UA) Norm (Normal) 09/27/23 11:05 Urine Ketones Negative (Negative) 09/27/23 11:05 Urine Blood 3+ (Negative) H 09/27/23 11:05 Urine Nitrate Negative (Negative) 09/27/23 11:05 Urine Bilirubin Neg (Negative) 09/27/23 11:05 Urine Urobilinogen Norm mg/dL (Negative) 09/27/23 11:05 Ur Leukocyte Esterase Trace (Negative) H 09/27/23 11:05 Urine RBC 40-50 /hpf (0-2) H 09/27/23 11:05 Urine WBC 0-4 /hpf (0-5) H 09/27/23 11:05 Ur Squamous Epith Cells 0-4 /hpf (0-5) H 09/27/23 11:05 Amorphous Sediment Not Reportable 09/27/23 11:05 Urine Bacteria Trace /hpf (NONE) 09/27/23 11:05 Urine Mucus None /hpf 09/22/23 19:05 Urine Yeast Trace /hpf 09/22/23 19:05 Ur Random Sodium 30 mmol/L 09/24/23 15:05 Ur Random Chloride 19 mmol/L 09/24/23 15:05 Urine Opiates Screen Negative ng/mL (Negative) 09/28/23 13:44 Ur Barbiturates Screen Negative ng/mL (Negative) 09/28/23 13:44 Ur Phencyclidine Scrn Negative ng/mL (Negative) 09/28/23 13:44 Ur Amphetamines Screen Negative ng/mL (Negative) 09/28/23 13:44 U Benzodiazepines Scrn Positive ng/mL (Negative) H 09/28/23 13:44 Urine Cocaine Screen Negative ng/mL (Negative) 09/28/23 13:44 U Marijuana (THC) Screen Negative ng/mL (Negative) 09/28/23 13:44 Ethyl Alcohol < 10 mg/dL (0-10) 09/22/23 18:21 Adenovirus (PCR) Not detected (NOT DETECT) 09/27/23 09:40 Bartonella Source Whole blood 09/23/23 01:58 B. henselae IgG Titer 1:512 titer (<1:64) H 09/23/23 01:58 Bartonella henselae IgG Positive A 09/23/23 01:58 Bartonella henselae DNA Not detected 09/23/23 01:58 Bartonella blair PCR Not detected 09/23/23 01:58 Lyme Ab (Western Blot) <0.90 index 09/23/23 01:58 C. pneumoniae DNA (PCR) Not detected (NOT DETECT) 09/27/23 09:40 Coronavirus 229E (PCR) Not detected (NOT DETECT) 09/27/23 09:40 E. chaffeensis IgG Ab <1:64 09/23/23 01:58 E. chaffeensis IgM Ab <1:20 09/23/23 01:58 E. chaffeensis Interp See note 09/23/23 01:58 E. chaffeensis Comment Not Reportable 09/23/23 01:58 Hepatitis A IgM Ab Non-reactive (Nonreactive) 09/22/23 23:14 Hep Bs Antigen Non-reactive (Nonreactive) 09/22/23 23:14 Hep B Core IgM Ab Non-reactive (Nonreactive) 09/22/23 23:14 Hepatitis C Antibody Non-reactive (Nonreactive) 09/22/23 23:14 HIV 1&2 Ab & HIV 1 Ag Non-reactive (Non-Reactiv) 09/22/23 23:14 HIV 1&2 Antibody Non-reactive (Non-Reactiv) 09/22/23 23:14 Human Metapneumovir PCR Not detected (NOT DETECT) 09/27/23 09:40 Influenza A (H1) PCR Not detected (NOT DETECT) 09/27/23 09:40 Influ A (H1/09) PCR Not detected (NOT DETECT) 09/27/23 09:40 Influenza A (H3) PCR Not detected (NOT DETECT) 09/27/23 09:40 Influenza Type A (PCR) Not detected (NOT DETECT) 09/27/23 09:40 Influenza Type B (PCR) Not detected (NOT DETECT) 09/27/23 09:40 M. pneumoniae (PCR) Not detected (NOT DETECT) 09/27/23 09:40 Parainfluenza 1 (PCR) Not detected (NOT DETECT) 09/27/23 09:40 Parainfluenza 2 (PCR) Not detected (NOT DETECT) 09/27/23 09:40 Parainfluenza 3 (PCR) Not detected (NOT DETECT) 09/27/23 09:40 Parainfluenza 4 (PCR) Not detected (NOT DETECT) 09/27/23 09:40 RSV Type A (PCR) Not detected (NOT DETECT) 09/27/23 09:40 RSV Type B (PCR) Not detected (NOT DETECT) 09/27/23 09:40 Entero/Rhino (PCR) Not detected (NOT DETECT) 09/27/23 09:40 SARS-CoV-2 (PCR) Not detected (NOT DETECT) 09/27/23 09:40 Beta-(1,3)-D-Glucan 55 pg/mL 09/23/23 01:58 B-(1,3)-D-Glucan Intrp Negative 09/23/23 01:58 Vitals Last Vital Signs Temp 98.4 F 09/29/23 04:00 Pulse 70 09/29/23 10:00 Resp 24 H 09/29/23 09:00 BP 139/93 09/29/23 10:00 Pulse Ox 98 09/29/23 10:00 O2 Del Method High Flow Nasal Cannula 09/29/23 06:00 O2 Flow Rate 6 09/29/23 06:00 FiO2 28 09/28/23 16:00 Discharge Plan Discharge Patient Disposition: Home Condition: Stable Prescriptions: New nitrofurantoin monohyd/m-cryst [Macrobid] 100 mg capsule 100 mg PO BID 7 Days Qty: 14 0RF Rx Instructions: must administer with a meal/food albuterol sulfate 90 mcg/actuation HFA aerosol inhaler 2 inh inhalation Q8H PRN (Reason: shortness of breath or wheezing) Qty: 6.7 3RF Continued (DME) diabetic shoes with inserts See Rx Instructions .Route .MEDSUPPLY Qty: 1 0RF Rx Instructions: As directed (DME) o2 at 3L per nasal cannula See Rx Instructions .Route .MEDSUPPLY Qty: 1 0RF Rx Instructions: Room air O2 sats were 83. After 3L O2 went up to 90's however when walking still at 89 on 3 L O2. nitroglycerin 0.3 mg tablet, sublingual 0.3 mg sublingual Q5M PRN (Reason: chest pain) Qty: 30 0RF Rx Instructions: do not exceed 3 doses per episode (DME) Diabetic shoes with inserts See Rx Instructions .Route .MEDSUPPLY Qty: 1 0RF Rx Instructions: As directed (DME) Blood pressure cuff and machine See Rx Instructions .Route .MEDSUPPLY Qty: 1 0RF Rx Instructions: As directed acetaminophen-codeine 300-60 mg tablet 1 tab PO Q8H PRN (Reason: pain) Qty: 90 0RF rifabutin 150 mg capsule 300 mg PO DAILY Qty: 60 3RF atorvastatin 40 mg tablet 40 mg PO DAILY famotidine 40 mg tablet 40 mg PO BID aspirin 81 mg tablet,delayed release (DR/EC) 81 mg PO DAILY fenofibrate 160 mg tablet 160 mg PO DAILY Trulicity 1.5 mg/0.5 mL pen injector 1.5 mg SUBCUT DAILY Rx Instructions: on Thursday furosemide 20 mg tablet 40 mg PO DAILY 30 Days Qty: 30 0RF Eliquis 5 mg tablet 2.5 mg PO BID 30 Days Qty: 30 0RF Changed Eliquis 5 mg tablet 5 mg PO BID 30 Days Qty: 30 0RF Held tizanidine 4 mg tablet 4 mg PO Q6H PRN (Reason: muscle spasticity) Qty: 20 0RF Hold Instructions: Resume on 10/06/23. Rx Instructions: do not exceed 3 doses per 24 hrs Entresto 24-26 mg tablet 1 tab PO BID Hold Instructions: Resume on 10/06/23. Discontinued pregabalin 300 mg capsule 300 mg PO BID Qty: 60 2RF No Action indomethacin 75 mg capsule, extended release 75 mg PO BID Qty: 30 0RF Hold Instructions: Resume on 09/29/23. resume after follow up with cardiology metolazone 2.5 mg tablet 2.5 mg PO DAILY PRN (Reason: Edema) Discharge Orders: Discharge Order (Routine); Ordered 09/29/23 Ordered By: Riddhi Harris Referrals: Diana Butcher MD [Primary Care Provider] - 4-7 days Patient Instructions: Opioid Safety Discharge Attestations Time Spent in Discharge Care*: greater than 30 min Quality Metrics Clinical Quality Measures [ No reported AMI, CVA or VTE this stay] Coding Level of Care Code Acute Code for Chg Fwd Diagnoses ARUNA (acute kidney injury) N17.9 Acute alteration in mental status R41.82
[2023-09-29 12:16] LABS: Glucose Point of Care 200 mg/dL (70-110)
[2023-09-29] MEDS: insulin lispro 100 unit/1 mL SUBCUT (12:17)
--- NOTE | 2023-09-29 12:59 | PC.NURSE ---
1200 at bedside, discharge orders being processed. says they have to wait for his oxygen to charge up before they can leave. Patient incontinent of urine when couldn't find urinal quick enough. Placed at chair side.
--- NOTE | 2023-09-29 14:16 | PC.NURSE ---
Dr. Harris having problems with computer program on discharge info. All complete except the 2 meds listed as NO Action. Dr. Harris wanted these two meds stopped. IT dept had worked with Dr. Harris trying to correct the problem and they were not able to help, except to Call the [employer]. So we printed off his ordered meds including New meds, Continued meds, and Discontinue meds. Education sheets printed regarding new meds and given to him and his . Discontinued his shelter monitor leads and patches and an Iv in left wrist/hand area, and in the left forearm with pressure dressing applied even though no bleeding was noted. All clothes and belongings including phone and airborne operations sent with patient and . No c/o's and denies any further questions. 1415 I took patient out to car via wheelchair to and assisted patient getting in car.
--- NOTE | 2023-09-29 14:27 | PC.NURSE ---
1400 Discharge chart will not allow doctors or me to get into the chart and chart the discharge. 1415 Discharged patient to .
[2023-09-30 16:19] LABS: RMSF IGG DETECTED; RMSF IGM NOT DETECTED
== END 2023-09-29 19:00 | disposition home or self-care (01) | DRG 70 ==
LOC: ER 21:36 → ER IP 23:08 → MEDSURG 09-23 07:39 → ICU 09-27 08:27 → MS 2A 09-29 17:21
PROVIDERS: Emergency Medicine; Hospitalist; Student in an Organized Health Care Education/Training Program; Admitting Provider Family Medicine; Emergency Provider Emergency Medicine; PCP Family Medicine; Visit Provider Internal Medicine
DX: G93.41 Metabolic encephalopathy (principal); I26.93 Single subsegmental thrombotic pulmonary embolism without acute cor pulmonale; J96.21 Acute and chronic respiratory failure with hypoxia; I13.0 Hypertensive heart and chronic kidney disease with heart failure and stage 1 through stage 4 chronic kidney disease, or unspecified chronic kidney disease; I42.8 Other cardiomyopathies; I50.42 Chronic combined systolic (congestive) and diastolic (congestive) heart failure; N17.9 Acute kidney failure, unspecified; Z99.81 Dependence on supplemental oxygen; I27.20 Pulmonary hypertension, unspecified; I48.91 Unspecified atrial fibrillation; Z79.01 Long term (current) use of anticoagulants; E11.22 Type 2 diabetes mellitus with diabetic chronic kidney disease; N18.9 Chronic kidney disease, unspecified; M10.072 Idiopathic gout, left ankle and foot; M10.071 Idiopathic gout, right ankle and foot; Z95.0 Presence of cardiac pacemaker; Z95.3 Presence of xenogenic heart valve; M51.37 Other intervertebral disc degeneration, lumbosacral region; N52.9 Male erectile dysfunction, unspecified; I25.2 Old myocardial infarction; N30.90 Cystitis, unspecified without hematuria; B95.2 Enterococcus as the cause of diseases classified elsewhere; N14.11 Contrast-induced nephropathy; T50.8X5A Adverse effect of diagnostic agents, initial encounter
CPT/HCPCS: 36415; 36416; 36600; 51798; 70450; 70496; 70498; 71045; 71275; 72125; 72128; 72131; 73620; 74176; 76770; 80051; 80053; 80074; 80306; 80307; 81001; 82140; 82330; 82436; 82803; 82805; 82962; 83605; 83735; 84100; 84145; 84300; 84443; 84484; 84550; 85025; 85049; 85378; 85610; 85651; 85730; 86140; 86611; 86618; 86622; 86638; 86666; 86757; 87040; 87086; 87449; 87486; 87581; 87633; 87801; 87806; 93005; 94660; 94664; 94760; 96365; 96367; 96372; 96376; 97110; 97116; 97161; 97166; 97535; 99285; A4570; C9113; G0103; J0131; J0696; J1630; J1644; J1815; J1940; J2020; J2060; J2543; J2930; J3370; J3490; J7512; P9046; Q3014; Q9967

== ENCOUNTER 2023-09-30 13:28 | Oncology outpatient (recurring) (ONCR) | payer MEDICARE, MEDICAID, SELFPAY ==
[2023-09-30 16:20] LABS: Basophils % 0.4 %; Eosinophils # 0.2 10^3/uL (0.0-0.8); Eosinophils % 4.2 %; Hematocrit 32.4 % (37-53); Lymphocytes # 0.9 10^3/uL (0.8-4.8); Lymphocytes % 18.2 %; Mean Corpuscular HGB Conc 30.2 g/dL (30-55); Mean Corpuscular Volume 102.5 fl (82-101); Mean Platelet Volume 11.5 fL (7.4-10.4); Monocytes # 0.5 10^3/uL (0.2-0.9); Monocytes % 10.3 %; Neutrophils # 3.18 10^3/uL (1.8-7.7); Neutrophils % 66.5 %; Nucleated Red Blood Cells % 0 %; Platelet Count 137 10^3/cmm (157-399); Red Blood Count 3.16 10^6/uL (3.85-5.65); Red Cell Distribution Width 14.6 % (12.1-15.1); White Blood Count 4.78 10^3/uL (3.29-11.43)
[2023-09-30 16:21] LABS: Reticulocyte % 1.8 % (0.5-2.0)
[2023-09-30 17:13] LABS: 25 Hydroxy Vitamin D 10 ng/mL (30-100); Alanine Aminotransferase 31 U/L (0-41); Alkaline Phosphatase 28 U/L (40-130); Anion Gap 12.6 (5-19); Aspartate Amino Transferase 35 U/L (0-40); Blood Urea Nitrogen 47 mg/dL (8-23); Calcium 9.2 mg/dL (8.5-10.5); Carbon Dioxide 29 mmol/L (22-29); Chloride 106 mmol/L (98-107); Ferritin 439 ng/mL (30-400); Globulin 3.8 g/dL (1.3-4.6); Glomerular Filtration Rate 35.6 mL/min (90-130); Glucose 177 mg/dL (65-115); Iron 57 ug/dL (59-158); Lactate Dehydrogenase 377 U/L (135-225); Osmolality Calculated 315 mOsm/kg (285-295); Percent Saturation 20.9 % (20-50); Potassium 3.6 mmol/L (3.5-5.1); Sodium 144 mmol/L (136-145); Thyroid Stimulating Hormone 2.75 uIU/mL (0.27-4.20); Total Iron Binding Capacity 272 mcg/dl; Total Protein 7.8 g/dL (6.6-8.7); Unsaturated Iron Binding 215 ug/dL (112-347); Vitamin B12 815 pg/mL (232-1245)
[2023-09-30 17:14] LABS: Folate Level 13.3 ng/mL (4.5-32.2)
[2023-09-30 18:53] LABS: LAB Peripheral Smear Sent for Review
[2023-10-04 16:26] LABS: Copper Level 135 mcg/dL (70-175); Zinc Level, Serum or Plasma 53 mcg/dL (60-130)
[2023-10-05 03:00] LABS: Methylmalonic Acid 378 nmol/L (87-318)
[2023-10-05 11:05] LABS: Soluble Transferrin Receptor 1.66 mg/L (0.76-1.76)
== END 2023-09-30 23:59 | disposition home or self-care (01) ==
PROVIDERS: Internal Medicine; PCP Family Medicine; Visit Provider Internal Medicine Medical Oncology
DX: D64.9 Anemia, unspecified (principal); E55.9 Vitamin D deficiency, unspecified; R53.83 Other fatigue; N18.9 Chronic kidney disease, unspecified
CPT/HCPCS: 36415; 80053; 82306; 82525; 82607; 82728; 82746; 83010; 83540; 83550; 83615; 83921; 84238; 84443; 84630; 85025; 85045; 99214

== ENCOUNTER 2023-10-09 12:09 | Outpatient (CLI) | payer MEDICARE, MEDICAID, SELFPAY ==
[2023-10-09] MEDS: iohexol 350 mg/mL 500 mL Btl (per mL) IV (12:29)
--- NOTE | 2023-10-09 12:30 | CT_ITS ---
WS: [id number] CTA THORACIC AORTA WITH AND WITHOUT CONTRAST HISTORY: ascending aortic aneurysm TECHNIQUE: CT imaging of the thorax is performed with and without contrast. After noncontrast imaging is performed, CT angiogram is performed during injection of Omnipaque 350; 100 mL IV.. Sagittal and coronal reconstructions, sagittal and coronal MIP imaging is submitted. All CT scans at [facility] use at least one of these dose optimization techniques: automated exposure control; mA and/or k V adjustment per patient size (includes targeted exams where dose is matched to clinical indication); or iterative reconstruction. 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 Similar in appearance to 09/27/2023 and 08/04/2023. Sin otubular junction 3.3 cm. Ectasia and dilatation of the ascending aorta with maximum diameter of 4.7 cm which is unchanged. Normal tapering of the aneurysm through the arch. Atherosclerosis in the desce nding aorta but normal caliber. There is no dissection or periaortic hematoma. Aortic valve replacement with heavy calcification in the [place] coronary arteries. Patient is status post median sternotomy. Dual-lead LEFT subclavian pacer. There is marked cardiomegaly. No pericardial or pleural effusions. No pulmonary mass, nodule or pneumonia. Small stable mediastinal and hilar lym ph nodes. Tricuspid regurgitation into the hepatic veins. Cholelithiasis without acute cholecystitis. Normal adrenal glands. IMPRESSION: 1. 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 2. Stable ascending aortic dilatation to 4.7 cm. 3. Ectatic aneurysmal aorta is stable with no dissection or periaortic hematoma. 4. Prior median sternotomy and dual-lead LEFT subclavian pacer. 5. Marked cardiomegaly. 6. Cholelithiasis without acute cholecystitis.
== END 2023-10-09 12:10 | disposition home or self-care (01) ==
LOC: RAD 12:09
PROVIDERS: Visit Provider Thoracic Surgery (Cardiothoracic Vascular Surgery)
DX: I71.21 Aneurysm of the ascending aorta, without rupture (principal)
CPT/HCPCS: 71275; Q9967

== ENCOUNTER 2023-10-12 11:56 | Oncology outpatient (recurring) (ONCR) | payer MEDICARE, MEDICAID, SELFPAY ==
[2023-10-12 12:13] VITALS: BP 160/101; PULSE 70; RESP 20; O2SAT 93
--- NOTE | 2023-10-12 12:18 | PC.NURSE ---
patient states he did not take blood pressure medication this AM but monitors at home and will take per family when they return. 02 sat 85% on RA patient also uses 02 at home but did not wear it here. 3l/nc placed and 02 at 93%.
== END 2023-10-29 23:59 | disposition home or self-care (01) ==
LOC: ONCMED 11:57
PROVIDERS: Visit Provider Internal Medicine Medical Oncology
DX: D64.9 Anemia, unspecified (principal); I71.21 Aneurysm of the ascending aorta, without rupture; Z79.899 Other long term (current) drug therapy; R89.9 Unspecified abnormal finding in specimens from other organs, systems and tissues
CPT/HCPCS: 96372; Q4081

== ENCOUNTER → 2023-10-13 12:58 | Outpatient (BNVA) | payer MEDICARE, MEDICAID, SELFPAY | PROVIDERS: Visit Provider Nurse Practitioner Family | DX: I13.0 Hypertensive heart and chronic kidney disease with heart failure and stage 1 through stage 4 chronic kidney disease, or unspecified chronic kidney disease (principal); N18.9 Chronic kidney disease, unspecified; I50.20 Unspecified systolic (congestive) heart failure | CPT/HCPCS: 99213 ==

== ENCOUNTER → 2023-10-19 13:25 | Outpatient (BNVA) | payer MEDICARE, MEDICAID, SELFPAY | PROVIDERS: Visit Provider Thoracic Surgery (Cardiothoracic Vascular Surgery) | DX: Z98.890 Other specified postprocedural states (principal) | CPT/HCPCS: 99213 ==

== ENCOUNTER → 2023-10-26 17:05 | Outpatient (BNVA) | payer MEDICARE, MEDICAID, SELFPAY | PROVIDERS: PCP Family Medicine; Visit Provider Family Medicine | DX: N18.30 Chronic kidney disease, stage 3 unspecified (principal); D63.1 Anemia in chronic kidney disease; E55.9 Vitamin D deficiency, unspecified | CPT/HCPCS: 80069; 82306; 82310; 82570; 83970; 84156; 85025 ==

== ENCOUNTER 2023-10-31 08:30 | Emergency (ER) | payer MEDICARE, MEDICAID, SELFPAY ==
[2023-10-31 08:32] VITALS: BP 146/92; PULSE 66; RESP 30; O2SAT 80
--- NOTE | 2023-10-31 08:34 | CTR_ITS ---
PROCEDURE INFORMATION: Exam: CT Head Without Contrast Exam date and time: 10/31/2023 8:58 AM Age: 68 years old Clinical indication: Other: Seizure; Additional info: New onset seizure TECHNIQUE: Imaging protocol: Computed tomography of the head without contrast. Radiation optimization: All CT scans at this facility use at least one of these dose optimization techniques: automated exposure control; mA and/or kV adjustment per patient size (includes targeted exams where dose is matched to clinical indication); or iterative reconstruction. COMPARISON: CT head wo con* [id number] 09/27/2023 12:43 PM RADIATION DOSE METRICS: Total DLP (mGy-cm): 1244.78 FINDINGS: Brain: There are periventricular white matter and bilateral centrum semiovale hypodensities consistent with chronic ischemic small vessel disease. 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 No intracranial mass, recent large territorial infarct or bleed. Cerebral ventricles: No ventriculomegaly. Paranasal sinuses: Visualized sinuses are unremarkable. No fluid levels. Mastoid air cells: Visualized mastoid air cells are well aerated. Bones/joints: Unremarkable. No acute fracture. Soft tissues: Unremarkable. Vasculature: There are bilateral carotid and left vertebral artery calcifications. CT/CT head wo con* [id number] IMPRESSION: No large territorial infarct or intracranial bleed.
--- NOTE | 2023-10-31 08:34 | ECG_ITS ---
[facility] Test Date: 2023-10-31 Pat Name: Pawan Marcum Department: Room: Gender: Male Beater Boss: : 1955 Requested By: Carlos Jules Order Number: [id number] Bebe MD: Sagar Newell M.D. Measurements Intervals [place] Rate: 70 P: 0 IA: 0 QRS: 158 QRSD: 206 T: 35 QT: 489 QTc: 528 Interpretive Statements ELECTRONIC VENTRICULAR PACEMAKER Compared to ECG 09/27/2023 13:58:36 Ventricular premature complex(es) no longer present Electronically Signed On 10-31-2023 10:06:38 MONITORING ENGINEER by Sagar Newell M.D. [id number] f
--- NOTE | 2023-10-31 08:34 | XRR_ITS ---
PROCEDURE INFORMATION: Exam: XR Chest Exam date and time: 10/31/2023 9:03 AM Age: 68 years old Clinical indication: Cough and dyspnea; Prior surgery; Surgery date: 6+ months; Surgery type: Pacemaker; Additional info: Dyspnea/cough TECHNIQUE: Imaging protocol: Radiologic exam of the chest. Views: 1 view. COMPARISON: CT angio chest [id number] 10/09/2023 12:38 PM FINDINGS: Tubes, catheters and devices: Dual lead pacemaker. Lungs: Unremarkable. No consolidation. Pleural spaces: Unremarkable. No pleural effusion. No pneumothorax. Heart/Mediastinum: There is cardiomegaly. Bones/joints: Post sternotomy and aortic valve replacement. Mild degenerative disease of bilateral acromioclavicular joints. XR/XR chest 1V portable [id number] IMPRESSION: No acute cardiopulmonary process.
--- NOTE | 2023-10-31 08:35 | W.ED.SEIZURE ---
HPI - Seizure General: Chief Complaint: Seizure Stated Complaint: SEIZURES Time Seen by Provider: 10/31/23 08:33 Source: patient Mode of arrival: EMS History of Present Illness: HPI Narrative: 68-year-old male presents to the emergency room with seizure activity this is new onset. No previous seizures not on any medications. He is postictal at this time. He is mildly confused he is not able to give much for history when initially seen the patient there are no family members available to give other history. He does have a pacemaker in place and a sternotomy scar he tells me it was done in 2016 we cannot tell me any other medical problems. MD complaint: seizure Description of Episode: tonic-clonic movement Witnessed: Yes - by Bystander Trauma: No Seizure History: No Place: Home Associated symptoms: Deny chest pain, chills or fever(s) Review of Systems Const: Denies: fever(s) or chills Card: Denies: chest pain Resp: Denies: dyspnea GI: Denies: abdominal pain : Denies: dysuria, urinary frequency or urinary urgency Musc: Denies: neck pain or back pain Skin/Breast: Denies: rash PFSH ED PFSH: Medical History ARUNA (acute kidney injury) Bilateral foot pain Generalized weakness Acute encephalopathy Generalized muscle weakness Acute alteration in mental status Confusion Epistaxis Pulmonary HTN Anticoagulation adequate with anticoagulant therapy Transaminitis Daytime sleepiness Enrolled in chronic care management Gout attack Atrial fibrillation Acute and chronic respiratory failure with hypoxia Ascending aortic aneurysm Congestive heart failure Pneumonia Acute and chronic respiratory failure with hypoxia Erectile dysfunction Type 2 diabetes mellitus Chronic kidney disease Anemia Diarrhea Nonischemic cardiomyopathy Diabetic foot Idiopathic gout, right ankle and foot Mixed hyperlipidemia Nonrheumatic aortic (valve) stenosis DDD (degenerative disc disease), lumbosacral HTN (hypertension) Surgical History History of cardiac pacemaker Hx of arthroscopy of left knee Hx of tooth extraction Hx of heart surgery (2017) Aortic valve replacement and aneurysm repair Family History Mother CAD (coronary artery disease) Brother Cancer Other Hypertension Denies family history of Diabetes Clotting disorder Dementia Chronic kidney disease (CKD) Suicide Anesthesia complication Bleeding disorder Lung disease Stroke Social History Smoking and tobacco/nicotine status: never used tobacco/nicotine Second hand smoke exposure: No Alcohol intake: current Alcohol intake frequency: holidays/special occasions only Substance/Drug Use: never Adopted: No Caregiver/support person: Yes (spouse) Lives independently: Yes Household members: spouse and children Housing: House Marital status: Number of children: 3 Number of grandchildren: 3 Highest education level completed: 6th Grade service: No Current occupational status: disabled Pets and animals: Yes Current gender identity: Male Special pola needs: No Agree to transfusion: Yes Physical Exam Const: COMMON NORMALS: no acute distress GENERAL APPEARANCE: cooperative and comfortable ORIENTATION/CONSCIOUSNESS: Yes awake HENMT: COMMON NORMALS: normocephalic, atraumatic and hearing grossly normal bilaterally HEAD & SCALP: normocephalic and atraumatic Resp: COMMON NORMALS: normal respiratory effort, No retractions, No use of accessory muscles and clear to auscultation bilaterally AUSCULTATION: clear to auscultation bilaterally Cardio: COMMON NORMALS: regular rate, regular rhythm and No murmurs present (Cardio) RATE: regular rate RHYTHM: regular rhythm GI: COMMON NORMALS: Soft to palpation and No hepatosplenomegaly present AUSCULTATION: Yes normoactive bowel sounds PALPATION: Yes Soft to palpation, No Tenderness to palpation present (GI), No Guarding due to palpation present (GI) and Yes No hepatosplenomegaly present Extremity: COMMON NORMALS: normal to inspection, capillary refill normal, no clubbing, cyanosis or edema, no calf tenderness and no pedal edema Skin: COMMON NORMALS: no rashes or lesions noted GENERAL SKIN EXAM: no rashes or lesions noted Course Vital Signs: Vital signs: Vital Signs Pulse Rate 66 10/31/23 08:32 Respiratory Rate 30 H 10/31/23 08:32 Blood Pressure 146/92 10/31/23 08:32 Pulse Oximetry 80 L 10/31/23 08:32 Oxygen Delivery Me thod Room Air 10/31/23 08:32 MDM - Seizure MDM Narrative Medical decision making narrative: Patient was postictal at on arrival here and somewhat confused this improved over time. Laboratory test did not show significant abnormalities. CT head negative. Patient has returned to his baseline will discharge home send an outpatient EEG. Return if he has further problems Lab Data 10/31/23 08:46 10/31/23 08:46 Labs: Radiology Impressions Chest X-Ray 10/31/23 08:34 IMPRESSION: No acute cardiopulmonary process. Head CT 10/31/23 08:34 IMPRESSION: No large territorial infarct or intracranial bleed. Laboratory Results WBC 6.22 10^3/uL (3.29-11.43) 10/31/23 08:46 RBC 3.40 10^6/uL (3.85-5.65) L 10/31/23 08:46 Hgb 10.40 g/dL (11.27-16.99) L 10/31/23 08:46 Hct 34.2 % (37-53) L 10/31/23 08:46 MCV 100.6 fl (82-101) 10/31/23 08:46 MCH 30.6 pg (27-33) 10/31/23 08:46 MCHC 30.4 g/dL (30-55) 10/31/23 08:46 RDW 17.2 % (12.1-15.1) H 10/31/23 08:46 Plt Count 166 10^3/cmm (157-399) 10/31/23 08:46 MPV 10.3 fL (7.4-10.4) 10/31/23 08:46 Neut % (Auto) 65.4 % 10/31/23 08:46 Lymph % (Auto) 24.3 % 10/31/23 08:46 Bertie % (Auto) 8.7 % 10/31/23 08:46 Eos % (Auto) 1.1 % 10/31/23 08:46 Baso % (Auto) 0.2 % 10/31/23 08:46 Neut # (Auto) 4.07 10^3/uL (1.8-7.7) 10/31/23 08:46 Lymph # (Auto) 1.5 10^3/uL (0.8-4.8) 10/31/23 08:46 Bertie # (Auto) 0.5 10^3/uL (0.2-0.9) 10/31/23 08:46 Eos # (Auto) 0.1 10^3/uL (0.0-0.8) 10/31/23 08:46 Baso # (Auto) 0.0 10^3/uL (0.0-0.1) 10/31/23 08:46 Nucleated RBC % (auto) 0 % 10/31/23 08:46 Nucleated RBCs # 0.0 /100WBC 10/31/23 08:46 Sodium 137 mmol/L (136-145) 10/31/23 08:46 Potassium 3.8 mmol/L (3.5-5.1) 10/31/23 08:46 Chloride 99 mmol/L (98-107) 10/31/23 08:46 Carbon Dioxide 27 mmol/L (22-29) 10/31/23 08:46 Anion Gap 14.8 (5-19) 10/31/23 08:46 BUN 40 mg/dL (8-23) H 10/31/23 08:46 Creatinine 2.1 mg/dL (0.7-1.2) H 10/31/23 08:46 GFR Calculation 31.8 mL/min (90-130) L 10/31/23 08:46 Glucose 169 mg/dL (65-115) H 10/31/23 08:46 Calculated Osmolality 298 mOsm/kg (285-295) H 10/31/23 08:46 Lactic Acid 2.2 mmol/L (0.5-2.2) 10/31/23 08:46 Calcium 8.8 mg/dL (8.5-10.5) 10/31/23 08:46 Total Bilirubin 1.1 mg/dL (0.15-1.2) 10/31/23 08:46 AST 29 U/L (0-40) 10/31/23 08:46 ALT 12 U/L (0-41) 10/31/23 08:46 Alkaline Phosphatase 37 U/L (40-130) L 10/31/23 08:46 Creatine Kinase 214 U/L (39-308) 10/31/23 08:46 Total Protein 8.3 g/dL (6.6-8.7) 10/31/23 08:46 Albumin 3.6 g/dL (3.5-5.2) 10/31/23 08:46 Globulin 4.7 g/dL (1.3-4.6) H 10/31/23 08:46 All radiology interpretation(s) finalized by discharge Discharge Plan Discharge Patient Disposition: Home Clinical Impression: Seizures, Anemia, CKD (chronic kidney disease) Condition: Stable Prescriptions: No Action (DME) diabetic shoes with inserts See Rx Instructions .Route .MEDSUPPLY Qty: 1 0RF Rx Instructions: As directed cefdinir 300 mg capsule 300 mg PO BID 7 Days Qty: 14 0RF (DME) o2 at 3L per nasal cannula See Rx Instructions .Route .MEDSUPPLY Qty: 1 0RF Rx Instructions: Room air O2 sats were 83. After 3L O2 went up to 90's however when walking still at 89 on 3 L O2. nitroglycerin 0.3 mg tablet, sublingual 0.3 mg sublingual Q5M PRN (Reason: chest pain) Qty: 30 0RF Rx Instructions: do not exceed 3 doses per episode (DME) Diabetic shoes with inserts See Rx Instructions .Route .MEDSUPPLY Qty: 1 0RF Rx Instructions: As directed indomethacin 75 mg capsule, extended release 75 mg PO BID Qty: 30 0RF Hold Instructions: Resume on 09/29/23. resume after follow up with cardiology Eliquis 5 mg tablet 5 mg PO BID Qty: 60 0RF benzonatate 100 mg capsule 100 mg PO TID PRN (Reason: cough) Qty: 30 0RF colchicine 0.6 mg tablet 1.2 mg PO .COMPLEX Qty: 3 0RF Rx Instructions: 1.2 mg orally once then one hour later take one tablet.; (DME) Blood pressure cuff and machine See Rx Instructions .Route .MEDSUPPLY Qty: 1 0RF Rx Instructions: As directed acetaminophen-codeine 300-60 mg tablet 1 tab PO Q8H PRN (Reason: pain) Qty: 90 0RF zinc sulfate 50 mg zinc (220 mg) capsule See Rx Instructions .ROUTE .COMPLEX Qty: 30 5RF Dose Instruction: TAKE ONE CAPSULE BY MOUTH DAILY Rx Instructions: TAKE ONE CAPSULE BY MOUTH DAILY mecobalamin (vitamin B12) 1,000 mcg tablet,disintegrating See Rx Instructions .ROUTE .COMPLEX Qty: 30 5RF Dose Instruction: TAKE ONE TABLET BY MOUTH DAILY Rx Instructions: TAKE ONE TABLET BY MOUTH DAILY tizanidine 4 mg tablet 4 mg PO Q8H PRN (Reason: muscle spasticity) Qty: 90 0RF Entresto 24-26 mg tablet 1 tab PO BID Qty: 60 3RF atorvastatin 40 mg tablet 40 mg PO DAILY Qty: 30 3RF rifabutin 150 mg capsule 300 mg PO DAILY Qty: 60 3RF famotidine 40 mg tablet 40 mg PO BID Qty: 60 3RF fenofibrate 160 mg tablet 160 mg PO DAILY Qty: 30 3RF metolazone 2.5 mg tablet 2.5 mg PO DAILY PRN (Reason: Edema) aspirin 81 mg tablet,delayed release (DR/EC) 81 mg PO DAILY furosemide 20 mg tablet 40 mg PO DAILY 30 Days Qty: 30 0RF Trulicity 1.5 mg/0.5 mL pen injector 1.5 mg SUBCUT .weekly Rx Instructions: on Thursday Discharge Orders: Discharge ED (Routine); Ordered 10/31/23 Ordered By: Carlos Riley Referrals: Diana Butcher MD [Primary Care Provider] - Discharge Diet: Usual diet Discharge Activity: Increase activity as tolerated Patient Instructions: Opioid Safety, Pain Management Activity Restrictions/Additional Instructions: Thank you for choosing [facility] for your healthcare needs today. Please realize this is an emergency room and that we are providing you with a medical screening exam and this may not be complete and all inclusive of all the testing and or work up that you may need to determine your ailment or severity of your illness. It is very important that you follow up as instructed or that you return to the Emergency Department should you have concerns or if your condition changes or worsens in any way. Case management will make arrangements for you to have an outpatient EEG and follow up with neurology. Coding Level of Care Code ED [employer] for Janelle Medina
[2023-10-31 08:56] LABS: Basophils % 0.2 %; Eosinophils # 0.1 10^3/uL (0.0-0.8); Eosinophils % 1.1 %; Hematocrit 34.2 % (37-53); Lymphocytes # 1.5 10^3/uL (0.8-4.8); Lymphocytes % 24.3 %; Mean Corpuscular HGB Conc 30.4 g/dL (30-55); Mean Corpuscular Hemoglobin 30.6 pg (27-33); Mean Corpuscular Volume 100.6 fl (82-101); Mean Platelet Volume 10.3 fL (7.4-10.4); Monocytes # 0.5 10^3/uL (0.2-0.9); Monocytes % 8.7 %; Neutrophils # 4.07 10^3/uL (1.8-7.7); Neutrophils % 65.4 %; Nucleated Red Blood Cells % 0 %; Platelet Count 166 10^3/cmm (157-399); Red Cell Distribution Width 17.2 % (12.1-15.1); White Blood Count 6.22 10^3/uL (3.29-11.43)
[2023-10-31 09:12] LABS: Lactic Sepsis W/Reflex 2.2 mmol/L (0.5-2.2)
[2023-10-31 09:13] LABS: Alanine Aminotransferase 12 U/L (0-41); Albumin Level 3.6 g/dL (3.5-5.2); Alkaline Phosphatase 37 U/L (40-130); Anion Gap 14.8 (5-19); Aspartate Amino Transferase 29 U/L (0-40); Blood Urea Nitrogen 40 mg/dL (8-23); Calcium 8.8 mg/dL (8.5-10.5); Carbon Dioxide 27 mmol/L (22-29); Chloride 99 mmol/L (98-107); Creatine Phosphokinase 214 U/L (39-308); Globulin 4.7 g/dL (1.3-4.6); Glomerular Filtration Rate 31.8 mL/min (90-130); Glucose 169 mg/dL (65-115); Osmolality Calculated 298 mOsm/kg (285-295); Potassium 3.8 mmol/L (3.5-5.1); Sodium 137 mmol/L (136-145); Total Bilirubin 1.1 mg/dL (0.15-1.2); Total Protein 8.3 g/dL (6.6-8.7)
[2023-10-31 10:41] LABS: Reflex Lactate Order REFLEX LACTIC ORDERD
--- NOTE | 2023-11-03 14:32 | PC.SOCIAL ---
Neurology Referral Referral to clinic at this time. Clinic to contact patient with appt date/time.
== END 2023-10-31 12:08 | disposition home or self-care (01) ==
PROVIDERS: Emergency Provider Family Medicine; PCP Family Medicine
DX: R56.9 Unspecified convulsions (principal); D64.9 Anemia, unspecified; I13.0 Hypertensive heart and chronic kidney disease with heart failure and stage 1 through stage 4 chronic kidney disease, or unspecified chronic kidney disease; E11.22 Type 2 diabetes mellitus with diabetic chronic kidney disease; N18.9 Chronic kidney disease, unspecified; I50.9 Heart failure, unspecified; I42.8 Other cardiomyopathies; E78.2 Mixed hyperlipidemia; Z95.0 Presence of cardiac pacemaker
CPT/HCPCS: 70450; 71045; 80053; 82550; 83605; 85025; 93005; 99285

== ENCOUNTER 2023-12-06 06:49 | Emergency (ER) | payer MEDICARE, MEDICAID, SELFPAY ==
[2023-12-06 06:50] VITALS: BMI 42.8
--- NOTE | 2023-12-06 06:51 | CTR_ITS ---
PROCEDURE INFORMATION: Exam: CT Head Without Contrast Exam date and time: 12/06/2023 6:59 AM Age: 68 years old Clinical indication: Patient HX: EMS arrival for seizure activity TECHNIQUE: Imaging protocol: Computed tomography of the head without contrast. Radiation optimization: All CT scans at this facility use at least one of these dose optimization techniques: automated exposure control; mA and/or kV adjustment per patient size (includes targeted exams where dose is matched to clinical indication); or iterative reconstruction. COMPARISON: CT head wo con* [id number] 10/31/2023 8:58 AM RADIATION DOSE METRICS: Total DLP (mGy-cm): 1120.58 FINDINGS: Brain: No acute intracranial hemorrhage or mass effect. There is decreased attenuation in the periventricular white matter, likely from microvascular disease. 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 Additional small infarct in the left cerebellar hemisphere. No definite acute infarct by CT. MRI would be more sensitive/specific for detection, as clinically directed. Cerebral ventricles: Ventricle size is normal for age. Paranasal sinuses: Mild mucosal thickening right maxillary sinus. Included paranasal sinuses otherwise appear essentially clear. Mastoid air cells: No significant acute finding. Bones/joints: No definite acute skull fracture. Soft tissues: No significant acute finding. Vasculature: Vascular calcifications in the internal carotid and vertebral basilar systems. CT/CT head wo con* [id number] IMPRESSION: 1. No acute intracranial hemorrhage or mass effect. 2. Changes of microvascular disease, and old infarcts, details above. 3. No definite acute infarct by CT, see above. 4. Other findings discussed above.
[2023-12-06 06:52] VITALS: BP 131/86; PULSE 69; RESP 16; TEMP 36.7; O2SAT 88
--- NOTE | 2023-12-06 07:07 | ECG_ITS ---
[facility] Test Date: 2023-12-06 Pat Name: Pawan Marcum Department: Room: Gender: Male Chocolatier: : 1955 Requested By: Zina Kessler Order Number: [id number] Bebe MD: Sagar Newell M.D. Measurements Intervals [place] Rate: 70 P: 0 MD: 0 QRS: -86 QRSD: 203 T: 105 QT: 479 QTc: 518 Interpretive Statements ELECTRONIC VENTRICULAR PACEMAKER Compared to ECG 10/31/2023 08:40:33 No significant changes Electronically Signed On 12-06-2023 11:05:05 CDT by Sagar Newell M.D. [email or web address] center[id number] f
--- NOTE | 2023-12-06 07:11 | XRR_ITS ---
PROCEDURE INFORMATION: Exam: XR Chest Exam date and time: 12/06/2023 7:16 AM Age: 68 years old Clinical indication: Pain; Shortness of breath; Other: Shoulder; Prior surgery; Surgery date: 6+ months; Surgery type: Open heart and pacemaker; Additional info: SOB, seizure and right sided shoulder pain TECHNIQUE: Imaging protocol: Radiologic exam of the chest. Views: 1 view. COMPARISON: CR (CHEST, ) 10/31/2023 9:03 AM FINDINGS: Tubes, catheters and devices: Left-sided cardiac pacemaker again noted, similar to the prior exam Lungs: No definite CHF/pulmonary edema. Visible lungs appear essentially clear. Pleural spaces: No visible pneumothorax. No definite pleural fluid. Heart/Mediastinum: Moderate to severe cardiomegaly. Bones/joints: Prior median sternotomy. XR/XR chest 1V portable [id number] IMPRESSION: 1. Moderate to severe cardiomegaly. 2. No definite CHF pneumonia. 3. Other findings discussed above.
--- NOTE | 2023-12-06 07:12 | ED_ITS ---
HPI - Seizure 2 General: Chief Complaint: Seizure Stated Complaint: SEIZURE Time Seen by Provider: 12/06/23 06:52 Source: EMS Mode of arrival: EMS Limitations: no limitations History of Present Illness: HPI Narrative: 68-year-old male who had a first-time se izure 1 month ago states he had a seizure this morning his states that she woke him up seizing he is postictal again as well. No recent illness denies any headache he is now awake alert answering all my questions appropriately he is supposed to get follow-up with a neurologist but has not been able to he is not on any seizure meds. Seizure History: No Associated symptoms: Deny chest pain, chills or fever(s) Review of Systems 2 Const: Denies: fever(s), chills, body aches or change in appetite ENMT: Denies: throat pain or dental pain Card: Denies: chest pain Resp: Denies: dyspnea GI: Denies: abdominal pain, nausea, vomiting or diarrhea Musc: Denies: neck pain or back pain Skin/Breast: Denies: rash Neuro: Reports: seizure-like activity; Denies: headache(s) PFSH ED 2 PFSH: Medical History ARUNA (acute kidney injury) Bilateral foot pain Generalized weakness Acute encephalopathy Generalized muscle weakness Acute alteration in mental status Confusion Epistaxis Pulmonary HTN Anticoagulation adequate with anticoagulant therapy Transaminitis Daytime sleepiness Enrolled in chronic care management Gout attack Atrial fibrillation Acute and chronic respiratory failure with hypoxia Ascending aortic aneurysm Congestive heart failure Pneumonia Acute and chronic respiratory failure with hypoxia Erectile dysfunction Type 2 diabetes mellitus Chronic kidney disease Anemia Diarrhea Nonischemic cardiomyopathy Diabetic foot Idiopathic gout, right ankle and foot Mixed hyperlipidemia Nonrheumatic aortic (valve) stenosis DDD (degenerative disc disease), lumbosacral HTN (hypertension) Surgical History History of cardiac pacemaker Hx of arthroscopy of left knee Hx of tooth extraction Hx of heart surgery (2017) Aortic valve replacement and aneurysm repair Family History Mother CAD (coronary artery disease) Brother Cancer Other Hypertension Denies family history of Diabetes Clotting disorder Dementia Chronic kidney disease (CKD) Suicide Anesthesia complication Bleeding disorder Lung disease Stroke Social History Smoking and tobacco/nicotine status: never used tobacco/nicotine Second hand smoke exposure: No Alcohol intake: current Alcohol intake frequency: holidays/special occasions only Substance/Drug Use: never Adopted: No Caregiver/support person: Yes (spouse) Lives independently: Yes Household members: spouse and children Housing: House Marital status: Number of children: 3 Number of grandchildren: 3 Highest education level completed: 6th Grade service: No Current occupational status: disabled Pets and animals: Yes Current gender identity: Male Special pola needs: No Agree to transfusion: Yes Physical Exam 2 Const: COMMON NORMALS: no acute distress, patient oriented x3 and healthy appearing HENMT: COMMON NORMALS: normocephalic and atraumatic HEAD & SCALP: n ormocephalic and atraumatic Eye: COMMON NORMALS: Equal, round and reactive pupils present and EOMs intact bilaterally PUPIL: Yes Equal, round and reactive pupils present Neck/C-Spine: COMMON NORMALS: full ROM and supple Chest: COMMONS NORMALS: normal inspection of the chest and normal palpation of entire chest wall Resp: COMMON NORMALS: normal respiratory effort, No retractions, No use of accessory muscles and clear to auscultation bilaterally AUSCULTATION: clear to auscultation bilaterally Cardio: COMMON NORMALS: regular rate, regular rhythm and No murmurs present (Cardio) RATE: regular rate RHYTHM: regular rhythm GI: COMMON NORMALS: Normal to inspection, nondistended, normoactive bowel sounds present, Soft to palpation, non-tender and no masses PALPATION: Yes Soft to palpation Extremity: COMMON NORMALS: normal to inspection and full ROM Neuro: COMMON NORMALS: patient oriented x3, moves all extremities and no focal motor deficits Psych: COMMON NORMALS: mental status grossly normal, Normal thought process present and cooperative THOUGHT PROCESS: Normal thought process present Skin: COMMON NORMALS: no rashes or lesions noted and no wounds GENERAL SKIN EXAM: no rashes or lesions noted Course 2 Vital Signs: Vital signs: Vital Signs Temperature 98.0 F 12/06/23 06:52 Pulse Rate 66 12/06/23 07:59 Respiratory Rate 16 12/06/23 06:52 Blood Pressure 119/76 12/06/23 07:59 Pulse Oximetry 94 12/06/23 07:59 Oxygen Delivery Me thod Nasal Cannula 12/06/23 07:59 Oxygen Flow Rate 2 12/06/23 07:59 MDM - Seizure MDM Narrative Medical decision making narrative: Patient presents here with a seizure and imaging blood work here is normal this is a second seizure we will start him on Keppra he is follow-up with neurology return if worsening he understands agrees to plan Lab Data 12/06/23 07:12 12/06/23 07:12 Labs: Radiology Impressions Head CT 12/06/23 06:51 IMPRESSION: 1. No acute intracranial hemorrhage or mass effect. 2. Changes of microvascular disease, and old infarcts, details above. 3. No definite acute infarct by CT, see above. 4. Other findings discussed above. Chest X-Ray 12/06/23 07:11 IMPRESSION: 1. Moderate to severe cardiomegaly. 2. No definite CHF pneumonia. 3. Other findings discussed above. Laboratory Results WBC 3.86 10^3/uL (3.29-11.43) 12/06/23 07:12 RBC 3.29 10^6/uL (3.85-5.65) L 12/06/23 07:12 Hgb 10.30 g/dL (11.27-16.99) L 12/06/23 07:12 Hct 32.1 % (37-53) L 12/06/23 07:12 MCV 97.6 fl (82-101) 12/06/23 07:12 MCH 31.3 pg (27-33) 12/06/23 07:12 MCHC 32.1 g/dL (30-55) 12/06/23 07:12 RDW 17.1 % (12.1-15.1) H 12/06/23 07:12 Plt Count 133 10^3/cmm (157-399) L 12/06/23 07:12 MPV 10.4 fL (7.4-10.4) 12/06/23 07:12 Neut % (Auto) 60.8 % 12/06/23 07:12 Lymph % (Auto) 27.2 % 12/06/23 07:12 [place] % (Auto) 9.1 % 12/06/23 07:12 Eos % (Auto) 2.1 % 12/06/23 07:12 Baso % (Auto) 0.3 % 12/06/23 07:12 Neut # (Auto) 2.35 10^3/uL (1.8-7.7) 12/06/23 07:12 Lymph # (Auto) 1.1 10^3/uL (0.8-4.8) 12/06/23 07:12 [place] # (Auto) 0.4 10^3/uL (0.2-0.9) 12/06/23 07:12 Eos # (Auto) 0.1 10^3/uL (0.0-0.8) 12/06/23 07:12 Baso # (Auto) 0.0 10^3/uL (0.0-0.1) 12/06/23 07:12 Nucleated RBC % (auto) 0 % 12/06/23 07:12 Nucleated RBCs # 0.0 /100WBC 12/06/23 07:12 Sodium 136 mmol/L (136-145) 12/06/23 07:12 Potassium 4.0 mmol/L (3.5-5.1) 12/06/23 07:12 Chloride 103 mmol/L (98-107) 12/06/23 07:12 Carbon Dioxide 23 mmol/L (22-29) 12/06/23 07:12 Anion Gap 14.0 (5-19) 12/06/23 07:12 BUN 36 mg/dL (8-23) H 12/06/23 07:12 Creatinine 1.5 mg/dL (0.7-1.2) H 12/06/23 07:12 GFR Calculation 46.8 mL/min (90-130) L 12/06/23 07:12 Glucose 141 mg/dL (65-115) H 12/06/23 07:12 Calculated Osmolality 293 mOsm/kg (285-295) 12/06/23 07:12 Calcium 9.0 mg/dL (8.5-10.5) 12/06/23 07:12 Total Bilirubin 0.7 mg/dL (0.15-1.2) 12/06/23 07:12 AST 24 U/L (0-40) 12/06/23 07:12 ALT 11 U/L (0-41) 12/06/23 07:12 Alkaline Phosphatase 38 U/L (40-130) L 12/06/23 07:12 Total Protein 7.6 g/dL (6.6-8.7) 12/06/23 07:12 Albumin 3.6 g/dL (3.5-5.2) 12/06/23 07:12 Globulin 4.0 g/dL (1.3-4.6) 12/06/23 07:12 All radiology interpretation(s) finalized by discharge EKG Data EKG 1: Attestation: I personally reviewed and interpreted this EKG as follows: EKG interpretation date: 12/06/23 EKG interpretation time: : Interpretation: paced hr [address] or t wave abnormalities qrs 203 qtc 499 Discharge Plan Discharge Patient Disposition: Home Clinical Impression: Generalized seizure Condition: Stable Prescriptions: New Keppra 500 mg tablet 500 mg PO Q12H Qty: 60 0RF No Action (DME) diabetic shoes with inserts See Rx Instructions .Route .MEDSUPPLY Qty: 1 0RF Rx Instructions: As directed (DME) o2 at 3L per nasal cannula See Rx Instructions .Route .MEDSUPPLY Qty: 1 0RF Rx Instructions: Room air O2 sats were 83. After 3L O2 went up to 90's however when walking still at 89 on 3 L O2. nitroglycerin 0.3 mg tablet, sublingual 0.3 mg sublingual Q5M PRN (Reason: chest pain) Qty: 30 0RF Rx Instructions: do not exceed 3 doses per episode (DME) Diabetic shoes with inserts See Rx Instructions .Route .MEDSUPPLY Qty: 1 0RF Rx Instructions: As directed indomethacin 75 mg capsule, extended release 75 mg PO BID Qty: 30 0RF Hold Instructions: Resume on 09/29/23. resume after follow up with cardiology Eliquis 5 mg tablet 5 mg PO BID Qty: 60 0RF benzonatate 100 mg capsule 100 mg PO TID PRN (Reason: cough) Qty: 30 0RF colchicine 0.6 mg tablet 1.2 mg PO .COMPLEX Qty: 3 0RF Rx Instructions: 1.2 mg orally once then one hour later take one tablet.; diclofenac sodium [Voltaren Arthritis Pain] 1 % gel 2 g topical QID Qty: 100 0RF Rx Instructions: apply to single elbow, wrist or hand; for hand includes palm/fingers/back of hand furosemide 20 mg tablet 20 mg PO DAILY (DME) Blood pressure cuff and machine See Rx Instructions .Route .MEDSUPPLY Qty: 1 0RF Rx Instructions: As directed zinc sulfate 50 mg zinc (220 mg) capsule See Rx Instructions .ROUTE .COMPLEX Qty: 30 5RF Dose Instruction: TAKE ONE CAPSULE BY MOUTH DAILY Rx Instructions: TAKE ONE CAPSULE BY MOUTH DAILY mecobalamin (vitamin B12) 1,000 mcg tablet,disintegrating See Rx Instructions .ROUTE .COMPLEX Qty: 30 5RF Dose Instruction: TAKE ONE TABLET BY MOUTH DAILY Rx Instructions: TAKE ONE TABLET BY MOUTH DAILY Entresto 24-26 mg tablet 1 tab PO BID Qty: 60 3RF atorvastatin 40 mg tablet 40 mg PO DAILY Qty: 30 3RF rifabutin 150 mg capsule 300 mg PO DAILY Qty: 60 3RF famotidine 40 mg tablet 40 mg PO BID Qty: 60 3RF fenofibrate 160 mg tablet 160 mg PO DAILY Qty: 30 3RF tizanidine 4 mg tablet 4 mg PO Q8H PRN (Reason: muscle spasticity) Qty: 90 0RF acetaminophen-codeine 300-60 mg tablet 1 tab PO Q8H PRN (Reason: pain) Qty: 90 0RF metolazone 2.5 mg tablet 2.5 mg PO DAILY PRN (Reason: Edema) aspirin 81 mg tablet,delayed release (DR/EC) 81 mg PO DAILY Trulicity 1.5 mg/0.5 mL pen injector 1.5 mg SUBCUT .weekly Rx Instructions: on Thursday Discharge Orders: Discharge ED (Routine); Ordered 12/06/23 Ordered By: Zina Kessler Referrals: Diana Butcher MD [Primary Care Provider] - 1-3 days Discharge Diet: Advance as tolerated Discharge Activity: Resume usual activity Patient Instructions: New-Onset Seizure in Adults (ED) Coding Level of Care Code ED Purchasing Analyst for Janelle Medina
[2023-12-06 07:15] LABS: Basophils % 0.3 %; Eosinophils # 0.1 10^3/uL (0.0-0.8); Eosinophils % 2.1 %; Hematocrit 32.1 % (37-53); Lymphocytes # 1.1 10^3/uL (0.8-4.8); Lymphocytes % 27.2 %; Mean Corpuscular HGB Conc 32.1 g/dL (30-55); Mean Corpuscular Hemoglobin 31.3 pg (27-33); Mean Corpuscular Volume 97.6 fl (82-101); Mean Platelet Volume 10.4 fL (7.4-10.4); Monocytes # 0.4 10^3/uL (0.2-0.9); Monocytes % 9.1 %; Neutrophils # 2.35 10^3/uL (1.8-7.7); Neutrophils % 60.8 %; Nucleated Red Blood Cells % 0 %; Platelet Count 133 10^3/cmm (157-399); Red Blood Count 3.29 10^6/uL (3.85-5.65); Red Cell Distribution Width 17.1 % (12.1-15.1); White Blood Count 3.86 10^3/uL (3.29-11.43)
[2023-12-06] MEDS: levETIRAcetam 1,000 MG/100 ML PREMIX 400 MG IV (07:17)
[2023-12-06 07:32] LABS: Alanine Aminotransferase 11 U/L (0-41); Albumin Level 3.6 g/dL (3.5-5.2); Alkaline Phosphatase 38 U/L (40-130); Aspartate Amino Transferase 24 U/L (0-40); Blood Urea Nitrogen 36 mg/dL (8-23); Carbon Dioxide 23 mmol/L (22-29); Chloride 103 mmol/L (98-107); Creatinine Clr Calc Pharmacy 65.1178; Glomerular Filtration Rate 46.8 mL/min (90-130); Glucose 141 mg/dL (65-115); Osmolality Calculated 293 mOsm/kg (285-295); Sodium 136 mmol/L (136-145); Total Bilirubin 0.7 mg/dL (0.15-1.2); Total Protein 7.6 g/dL (6.6-8.7)
[2023-12-06 07:59] VITALS: BP 119/76; PULSE 66; O2SAT 94
--- NOTE | 2023-12-07 07:54 | DCPLANNER ---
A message was sent to neurology on 12/07/23 at 0754. [facility] to contact patient for appt
== END 2023-12-06 08:21 | disposition home or self-care (01) ==
PROVIDERS: Emergency Provider Emergency Medicine; PCP Family Medicine
DX: G40.89 Other seizures (principal); Z79.01 Long term (current) use of anticoagulants; Z79.82 Long term (current) use of aspirin; Z79.84 Long term (current) use of oral hypoglycemic drugs; I13.0 Hypertensive heart and chronic kidney disease with heart failure and stage 1 through stage 4 chronic kidney disease, or unspecified chronic kidney disease; E11.22 Type 2 diabetes mellitus with diabetic chronic kidney disease; N18.9 Chronic kidney disease, unspecified; I50.9 Heart failure, unspecified; I42.8 Other cardiomyopathies; E78.2 Mixed hyperlipidemia; Z95.0 Presence of cardiac pacemaker
CPT/HCPCS: 36415; 70450; 71045; 80053; 85025; 93005; 96365; 99285; J1953

== ENCOUNTER 2023-12-10 20:00 | Outpatient (CLI) | payer MEDICARE, MEDICAID, SELFPAY | END 2023-12-10 20:01 | disposition home or self-care (01) | LOC: SLEEP 12-11 06:49 | PROVIDERS: PCP Family Medicine; Visit Provider Family Medicine | DX: G47.33 Obstructive sleep apnea (adult) (pediatric) (principal) | CPT/HCPCS: 95810 ==

== ENCOUNTER → 2023-12-17 08:16 | Outpatient (BNVA) | payer MEDICARE, MEDICAID, SELFPAY | PROVIDERS: PCP Family Medicine; Visit Provider Family Medicine | DX: N18.9 Chronic kidney disease, unspecified (principal); E11.9 Type 2 diabetes mellitus without complications; M10.071 Idiopathic gout, right ankle and foot; I50.20 Unspecified systolic (congestive) heart failure; D63.1 Anemia in chronic kidney disease | CPT/HCPCS: 80053; 82043; 83036; 84550; 85025 ==

== ENCOUNTER → 2023-12-21 14:10 | Outpatient (BNVA) | payer MEDICARE, MEDICAID, SELFPAY | PROVIDERS: PCP Family Medicine; Visit Provider Family Medicine | DX: M25.512 Pain in left shoulder (principal); M25.511 Pain in right shoulder; M19.012 Primary osteoarthritis, left shoulder | CPT/HCPCS: 73030 ==

== ENCOUNTER → 2024-01-18 15:15 | Outpatient (BNVA) | payer MEDICARE, MEDICAID, SELFPAY | PROVIDERS: PCP Family Medicine; Visit Provider Internal Medicine Cardiovascular Disease | DX: I13.0 Hypertensive heart and chronic kidney disease with heart failure and stage 1 through stage 4 chronic kidney disease, or unspecified chronic kidney disease (principal); I50.20 Unspecified systolic (congestive) heart failure; N18.9 Chronic kidney disease, unspecified; Z95.0 Presence of cardiac pacemaker; E78.2 Mixed hyperlipidemia; I42.8 Other cardiomyopathies; Z95.2 Presence of prosthetic heart valve; Z98.890 Other specified postprocedural states; Z86.79 Personal history of other diseases of the circulatory system; E11.22 Type 2 diabetes mellitus with diabetic chronic kidney disease; Z79.01 Long term (current) use of anticoagulants | CPT/HCPCS: 99214 ==

== ENCOUNTER 2024-01-26 07:39 | Outpatient (CLI) | payer MEDICARE, MEDICAID, SELFPAY ==
--- NOTE | 2024-01-26 08:00 | USCV_ITS ---
Pawan Marcum Age: 68 Gender: M : 1955 Exam Date: 01/26/2024 07:55 Ordering Phys: Honorio Scott MD ([email or web address]) Technologist: KYAW Exam Location: [facility] [place] Indication: AVR BP: 116 / 77 HR: 70 Rhythm: Sinus Technical Quality: Adequate MEASUREMENTS (Male / Female) Normal Values 2D ECHO LV Diastolic Diameter PLAX 5.4 cm 4.2 - 5.9 / 3.9 - 5.3 cm IVS Diastolic Thickness 1.9 cm 0.6 - 1.0 / 0.6 - 0.9 cm IVS Systolic Thickness 2.5 cm LVPW Diastolic Thickness 2.7 cm 0.6 - 1.0 / 0.6 - 0.9 cm LVPW Systolic Thickness 3.0 cm LVOT Diameter 2.0 cm LV Ejection Fraction 2D Teich 42.7 % LV Ejection Fraction MOD 2C 32.5 % LV Ejection Fraction 2C AL 33.9 % LA Diameter 4.4 cm RA Systolic Volume 4C AL 125.6 ml RA Systolic Volume 4C MOD 119.3 ml LA Sys Volume AL 90.1 cm cubed LA Sys Volume Index AL 38.5 cm cubed/m squared Aorta at Sinotubular Diameter 4.8 cm IVC Diameter 2.8 cm M-MODE LA Ao Ratio MM 1.1 AV Cusp Separation MM 1.0 cm DOPPLER AV Peak Velocity 352.4 cm/s LVOT Peak Velocity 115.0 cm/s AV Area Cont Eq vti 1.2 cm squared AV Area Cont Eq pk 1.0 cm squared MV Peak Velocity 133.0 cm/s MV Area PHT 7.1 cm squared Mitral E to A Ratio 125.0 TR Peak Velocity 293.0 cm/s TR Peak Gradient 34.3 mmHg TR Mean Velocity 270.0 cm/s TR Mean Gradient 32.9 mmHg TR Velocity Time Integral 110.8 cm TV Peak E Velocity 71.0 cm/s Right Atrial Pressure 8.0 mmHg Pulmonary Artery Systolic Pressu 42.3 mmHg PV Peak Velocity 79.0 cm/s RV Ejection Time 0.3 s FINDINGS Left Ventricle Mildly dilated LV cavity with diminished ejection fraction of 33%. Severe diffuse hypokinesia of the septum, anteroseptum and inferior wall segments with a somewhat dyskinetic apex Right Ventricle Pacemaker/defibrillator wire was noted in the right ventricle. Normal RV size with a slightly diminished ejection fraction Right Atrium Moderately increased right atrial size. Pacemaker/defibrillator wire Left Atrium Moderately increased left atrial size. Mitral Valve Mild-moderate mitral valve regurgitation. Mild mitral annular calcification. Aortic Valve The bioprosthetic valve at the aortic position appears to be well-seated. The valve was found to be thickened and stenotic. Peak velocity across the valve was 2.95 m/s with a peak gradient of 35 and a mean gradient of 22. The valve area was calculated to be 1.28 cm squared. The valve index of 0.55 cm squared/m squared Tricuspid Valve Moderate tricuspid valve regurgitation. Premature atrial contractions estimated pulmonary artery peak systolic pressure 60 mmHg Pulmonic Valve Mild pulmonary valve regurgitation. Pericardium No pericardial effusion. Aorta Dilated ascending aorta measuring 5.65 cm. The sinotubular junction measured 4.76 centimeter and the aorta at the level of the sinuses measured 4.3 cm IVC Dilated IVC with normal respiratory variation. CONCLUSIONS Mildly dilated LV cavity with diminished ejection fraction of 33%. Multiple wall motion abnormalities as mentioned above. Moderate biatrial enlargement. The bioprosthetic valve the aortic position appears to be well- seated with moderate aortic valve stenosis-calculated valve area 1.28 cm squared. Peak velocity of 2.95 m/s with a peak gradient of 35 and a mean gradient of 22 mmHg. Ascending aortic aneurysm measuring 5.65 cm. Dilated IVC with normal respiratory variation. Moderate pulmonary hypertension with an estimated pulmonary artery peak systolic pressure of 60 mmHg. Mild-moderate mitral valve regurgitation. Moderate tricuspid valve regurgitation. Mild pulmonary valve regurgitation. There is no pericardial effusion. Compared to the study from 09/18/2023, there may not be a significant change Dr Honorio Scott MD [facility] (Electronically Signed) Final Date: 28 Jan 2024 20:48 S
== END 2024-01-26 07:40 | disposition home or self-care (01) ==
LOC: RAD 07:39
PROVIDERS: PCP Family Medicine; Visit Provider Internal Medicine Cardiovascular Disease
DX: R06.09 Other forms of dyspnea (principal); I51.7 Cardiomegaly; I27.20 Pulmonary hypertension, unspecified; I34.0 Nonrheumatic mitral (valve) insufficiency; I07.1 Rheumatic tricuspid insufficiency
CPT/HCPCS: 93306

== ENCOUNTER 2024-02-10 13:58 | Oncology outpatient (recurring) (ONCR) | payer MEDICARE, MEDICAID, SELFPAY ==
[2024-02-10 18:14] LABS: Lactate Dehydrogenase 394 U/L (135-225)
[2024-02-12 07:57] LABS: Vitamin B12 437 pg/mL (232-1245)
== END 2024-02-28 23:59 | disposition home or self-care (01) ==
PROVIDERS: Nurse Practitioner Family; PCP Family Medicine; Visit Provider Internal Medicine Medical Oncology
DX: D63.1 Anemia in chronic kidney disease (principal); N18.9 Chronic kidney disease, unspecified; D64.9 Anemia, unspecified
CPT/HCPCS: 80053; 82607; 83010; 83615; 83921; 84153; 85025; 99213

== ENCOUNTER → 2024-02-23 08:21 | Outpatient (BNVA) | payer MEDICARE, MEDICAID, SELFPAY | PROVIDERS: PCP Family Medicine; Visit Provider Nurse Practitioner | DX: M19.011 Primary osteoarthritis, right shoulder (principal); M19.012 Primary osteoarthritis, left shoulder | CPT/HCPCS: 99204 ==

== ENCOUNTER 2024-03-09 06:00 | Outpatient (RCR) | payer MEDICARE, MEDICAID, SELFPAY | END 2024-03-30 23:59 | disposition home or self-care (01) | LOC: SPT 06:00 | PROVIDERS: PCP Family Medicine; Visit Provider Nurse Practitioner | DX: M25.511 Pain in right shoulder (principal); M25.512 Pain in left shoulder | CPT/HCPCS: 97162 ==

== ENCOUNTER 2024-03-14 08:37 | Emergency (ER) | payer MEDICARE, MEDICAID, SELFPAY ==
--- NOTE | 2024-03-14 08:41 | ECG_ITS ---
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 Measurements Intervals [place] Rate: 70 P: 0 [place]: 0 QRS: -62 QRSD: 192 T: 125 QT: 460 QTc: 497 Interpretive Statements ELECTRONIC VENTRICULAR PACEMAKER Compared to ECG 12/06/2023 07:07:22 No significant changes Electronically Signed On 03-14-2024 9:43:56 CDT by Sagar Newell M.D. [email or web address]
[2024-03-14 08:43] VITALS: BP 168/104; PULSE 70; RESP 24; TEMP 36.8; O2SAT 86; BMI 37.6
--- NOTE | 2024-03-14 08:46 | XRR_ITS ---
PROCEDURE INFORMATION: Exam: XR Chest Exam date and time: 03/14/2024 8:48 AM Age: 68 years old Clinical indication: Cough and dyspnea and shortness of breath; Prior surgery; Surgery date: 6+ months; Surgery type: Heart valve, pacer; Additional info: Dyspnea/cough TECHNIQUE: Imaging protocol: Radiologic exam of the chest. Views: 1 view. COMPARISON: CR XR chest 1V portable [id number] 12/06/2023 7:16 AM FINDINGS: Tubes, catheters and devices: Dual lead pacemaker is seen on the left. Lungs: There is mild vascular congestion. No focal consolidation is appreciated. Pleural spaces: There may be trace pleural effusions. Heart/Mediastinum: The heart is enlarged. There are sternal wires present from prior cardiac surgery. Bones/joints: Unremarkable. XR/XR chest 1V portable [id number] IMPRESSION: 1. Cardiomegaly with mild vascular congestion and possible trace pleural effusions.
[2024-03-14 08:54] VITALS: BP 168/104; PULSE 71; RESP 24; O2SAT 95
--- NOTE | 2024-03-14 09:00 | ED_ITS ---
HPI - SOB/Dyspnea 2 General: Chief Complaint: Shortness of Breath/Dyspnea Stated Complaint: SOB Time Seen by Provider: 03/14/24 08:45 Source: patient Mode of arrival: ambulatory History of Present Illness: HPI Narrative: 68-year-old male presents emergency comp laining of increasing orthopnea and shortness of breath with activity. He has a known history of heart disease and has had problems with heart failure. He is on diuretics at home he is noticed about a 10 pound weight gain recently is not having any chest pain. He has been taking his diuretics regularly. MD elicited complaint: shortness of breath Pertinent past history: congestive heart failure Timing: constant Exacerbating factors: lying flat and exertion Relieving factors: upright position Known history of: congestive heart failure Associated symptoms: Reports orthopnea; Deny abdominal pain, chest congestion, chest pain, cough, diaphoresis, dizziness, extremity pain, fever(s), hemoptysis, lightheadedness, myalgias, nausea, palpitations, paresthesias, polydipsia, polyuria, rash, sense of impending doom, syncope or vomiting Treatment prior to arrival: none Related Data: Home oxygen amount: 2 liters Review of Systems 2 Const: Denies: fever(s) or diaphoresis Card: Reports: orthopnea; Denies: chest pain, palpitations, lightheadedness or syncope Resp: Denies: hemoptysis or chest congestion GI: Denies: abdominal pain, nausea or vomiting Musc: Denies: extremity pain Neuro: Denies: dizziness Endo: Denies: polyuria or polydipsia PFSH ED 2 PFSH: Medical History Osteoarthritis of shoulders, bilateral Bilateral shoulder pain Pulmonary HTN Nonischemic cardiomyopathy Mixed hyperlipidemia Nonrheumatic aortic (valve) stenosis HTN (hypertension) Severe obstructive sleep apnea Nocturnal hypoxemia CAROLINA (obstructive sleep apnea) ARUNA (acute kidney injury) Bilateral foot pain Generalized weakness Acute encephalopathy Generalized muscle weakness Acute alteration in mental status Confusion Epistaxis Anticoagulation adequate with anticoagulant therapy Transaminitis Daytime sleepiness Enrolled in chronic care management Gout attack Atrial fibrillation Acute and chronic respiratory failure with hypoxia Ascending aortic aneurysm Congestive heart failure Pneumonia Acute and chronic respiratory failure with hypoxia Erectile dysfunction Type 2 diabetes mellitus Chronic kidney disease Anemia Diarrhea Diabetic foot Idiopathic gout, right ankle and foot DDD (degenerative disc disease), lumbosacral Surgical History History of cardiac pacemaker Hx of arthroscopy of left knee Hx of tooth extraction Hx of heart surgery (2017) Aortic valve replacement and aneurysm repair Family History Mother CAD (coronary artery disease) Brother Cancer Other Diabetes mellitus, type 2 Hypertension Denies family history of Diabetes Clotting disorder Dementia Chronic kidney disease (CKD) Suicide Anesthesia complication Bleeding disorder Lung disease Stroke Social History Smoking and tobacco/nicotine status: never used tobacco/nicotine Second hand smoke exposure: No Alcohol intake: current Alcohol intake frequency: holidays/special occasions only Substance/Drug Use: never Adopted: No Caregiver/support person: Yes (spouse) Lives independently: Yes Household members: spouse and children Housing: House Marital status: Number of children: 3 Number of grandchildren: 3 Highest education level completed: 6th Grade service: No Current occupational status: disabled Pets and animals: Yes Current gender identity: Male Special pola needs: No Agree to transfusion: Yes Physical Exam 2 Const: COMMON NORMALS: no acute distress GENERAL APPEARANCE: cooperative and comfortable ORIENTATION/CONSCIOUSNESS: Yes awake, Yes oriented to person, Yes oriented to place and Yes oriented to time HENMT: COMMON NORMALS: normocephalic, atraumatic and hearing grossly normal bilaterally HEAD & SCALP: normocephalic and atraumatic Resp: COMMON NORMALS: normal respiratory effort, No retractions and No use of accessory muscles AUSCULTATION: crackles Cardio: COMMON NORMALS: regular rate, regular rhythm and No murmurs present (Cardio) RATE: regular rate RHYTHM: regular rhythm GI: COMMON NORMALS: Soft to palpation and No hepatosplenomegaly present A USCULTATION: Yes normoactive bowel sounds PALPATION: Yes Soft to palpation, No Tenderness to palpation present (GI), No Guarding due to palpation present (GI) and Yes No hepatosplenomegaly present Extremity: COMMON NORMALS: normal to inspection, capillary refill normal, no clubbing, cyanosis or edema, no calf tenderness and no pedal edema Neuro: SENSORIUM/ORIENTATION: Yes oriented to person, Yes oriented to place and Yes oriented to time Skin: COMMON NORMALS: no rashes or lesions noted GENERAL SKIN EXAM: no rashes or lesions noted Course 2 Vital Signs: Vital signs: Vital Signs Temperature 98.3 F 03/14/24 13:09 Pulse Rate 72 03/14/24 13:09 Respiratory Rate 24 H 03/14/24 13:09 Blood Pressure 160/119 03/14/24 13:09 Pulse Oximetry 97 03/14/24 13:09 Oxygen Delivery Me thod Nasal Cannula 03/14/24 11:10 Oxygen Flow Rate 2 03/14/24 11:10 MDM - SOB/Dyspnea Medical Decision Making Labs and imaging reviewed as found in the chart. Improved after diuresis in the emergency room. Will discharge home he has oxygen at home to continue to use it at 2 L continuously until he rechecks. He should be rechecked in 3 to 4 days his primary care doctor office. Increase his Lasix to 40 mg daily and follow-up with his primary care doctor if has any worsening symptoms in the interim return to the emergency room. Differential Diagnosis Likely congestive heart failure Medical Records I reviewed the patient's medical records. Lab Data I reviewed the patient's lab results. 03/14/24 08:55 03/14/24 08:55 Labs/Radiology: Radiology Impressions Chest X-Ray 03/14/24 08:46 IMPRESSION: 1. Cardiomegaly with mild vascular congestion and possible trace pleural effusions. Laboratory Results WBC 8.38 10^3/uL (3.29-11.43) 03/14/24 08:55 RBC 3.56 10^6/uL (3.85-5.65) L 03/14/24 08:55 Hgb 12.10 g/dL (11.27-16.99) 03/14/24 08:55 Hct 39.0 % (37-53) 03/14/24 08:55 MCV 109.6 fl (82-101) H 03/14/24 08:55 MCH 34.0 pg (27-33) H 03/14/24 08:55 MCHC 31.0 g/dL (30-55) 03/14/24 08:55 RDW 15.3 % (12.1-15.1) H 03/14/24 08:55 Plt Count 95 10^3/cmm (157-399) L 03/14/24 08:55 MPV 10.8 fL (7.4-10.4) H 03/14/24 08:55 Neut % (Auto) 81.2 % 03/14/24 08:55 Lymph % (Auto) 9.1 % 03/14/24 08:55 [place] % (Auto) 8.4 % 03/14/24 08:55 Eos % (Auto) 0.0 % 03/14/24 08:55 Baso % (Auto) 0.1 % 03/14/24 08:55 Neut # (Auto) 6.81 10^3/uL (1.8-7.7) 03/14/24 08:55 Lymph # (Auto) 0.8 10^3/uL (0.8-4.8) 03/14/24 08:55 [place] # (Auto) 0.7 10^3/uL (0.2-0.9) 03/14/24 08:55 Eos # (Auto) 0.0 10^3/uL (0.0-0.8) 03/14/24 08:55 Baso # (Auto) 0.0 10^3/uL (0.0-0.1) 03/14/24 08:55 Nucleated RBC % (auto) 0.5 % 03/14/24 08:55 Nucleated RBCs # 0.0 /100WBC 03/14/24 08:55 Sodium 136 mmol/L (136-145) 03/14/24 08:55 Potassium 4.7 mmol/L (3.5-5.1) 03/14/24 08:55 Chloride 106 mmol/L (98-107) 03/14/24 08:55 Carbon Dioxide 22 mmol/L (22-29) 03/14/24 08:55 Anion Gap 12.7 (5-19) 03/14/24 08:55 BUN 48 mg/dL (8-23) H 03/14/24 08:55 Creatinine 1.8 mg/dL (0.7-1.2) H 03/14/24 08:55 GFR Calculation 37.9 mL/min (90-130) L 03/14/24 08:55 Glucose 231 mg/dL (65-115) H 03/14/24 08:55 Calculated Osmolality 302 mOsm/kg (285-295) H 03/14/24 08:55 Calcium 8.6 mg/dL (8.5-10.5) 03/14/24 08:55 Total Bilirubin 1.0 mg/dL (0.15-1.2) 03/14/24 08:55 AST 31 U/L (0-40) 03/14/24 08:55 ALT 25 U/L (0-41) 03/14/24 08:55 Alkaline Phosphatase 38 U/L (40-130) L 03/14/24 08:55 Troponin T Baseline 97 ng/L (0-15) H 03/14/24 08:55 Troponin T 120 Minute 98.92 ng/L (0-15) H 03/14/24 10:37 Delta Troponin T 1.92 ABS# (0-10) 03/14/24 10:37 Total Protein 7.8 g/dL (6.6-8.7) 03/14/24 08:55 Albumin 3.8 g/dL (3.5-5.2) 03/14/24 08:55 Globulin 4.0 g/dL (1.3-4.6) 03/14/24 08:55 All radiology interpretation(s) finalized by discharge Discharge Plan Discharge Patient Disposition: Home Clinical Impression: Acute on chronic heart failure, Systolic congestive heart failure with reduced left ventricular function, NYHA class 4 Condition: Stable Prescriptions: No Action (DME) diabetic shoes with inserts See Rx Instructions .Route .MEDSUPPLY Qty: 1 0RF Rx Instructions: As directed (DME) o2 at 3L per nasal cannula See Rx Instructions .Route .MEDSUPPLY Qty: 1 0RF Rx Instructions: Room air O2 sats were 83. After 3L O2 went up to 90's however when walking still at 89 on 3 L O2. nitroglycerin 0.3 mg tablet, sublingual 0.3 mg sublingual Q5M PRN (Reason: chest pain) Qty: 30 0RF Rx Instructions: do not exceed 3 doses per episode (DME) Diabetic shoes with inserts See Rx Instructions .Route .MEDSUPPLY Qty: 1 0RF Rx Instructions: As directed furosemide 20 mg tablet 20 mg PO DAILY levetiracetam 500 mg tablet 500 mg PO Q12H (DME) Blood pressure cuff and machine See Rx Instructions .Route .MEDSUPPLY Qty: 1 0RF Rx Instructions: As directed Entresto 24-26 mg tablet 1 tab PO BID Qty: 60 3RF atorvastatin 40 mg tablet 40 mg PO DAILY Qty: 30 3RF rifabutin 150 mg capsule 300 mg PO DAILY Qty: 60 3RF famotidine 40 mg tablet 40 mg PO BID Qty: 60 3RF fenofibrate 160 mg tablet 160 mg PO DAILY Qty: 30 3RF Eliquis 5 mg tablet 5 mg PO BID Qty: 60 3RF hydrocodone-acetaminophen 7.5-325 mg tablet 1 tab PO Q8H PRN (Reason: pain) 20 Days Qty: 60 0RF folic acid 1 mg tablet 1 mg PO DAILY Qty: 30 3RF metolazone 2.5 mg tablet 2.5 mg PO DAILY PRN (Reason: Edema) Trulicity 1.5 mg/0.5 mL pen injector 1.5 mg SUBCUT .weekly Rx Instructions: on Thursday tizanidine 4 mg tablet 4 mg PO Q8H PRN (Reason: Muscle Spasticity) aspirin 81 mg tablet,delayed release (DR/EC) 81 mg PO DAILY tamsulosin 0.4 mg capsule 0.4 mg PO BEDTIME zinc sulfate 50 mg zinc (220 mg) capsule 50 mg PO DAILY ferrous gluconate 324 mg (38 mg iron) tablet 324 mg PO BID Voltaren Arthritis Pain 1 % gel 2 g topical QID PRN (Reason: JOINT PAIN) Rx Instructions: apply to single elbow, wrist or hand; for hand includes palm/fingers/back of hand mecobalamin (vitamin B12) 1,000 mcg tablet,disintegrating 1,000 mcg PO DAILY Discharge Orders: Discharge ED (Routine); Ordered 03/14/24 Ordered By: Carlos Riley Referrals: Diana Butcher MD [Primary Care Provider] - Patient Instructions: Opioid Safety, Pain Management Activity Restrictions/Additional Instructions: Thank you for choosing [facility] for your healthcare needs today. It is very important that you follow up as instructed or that you return to the Emergency Department should you have concerns or if your condition changes or worsens in any way. You were seen today for shortness of breath. Chest x-ray looks like mild exacerbation of COPD recommend you increase your Lasix to 40 mg daily for the next 5 days. You should follow-up with your primary care doctor before the end of the week. Coding Level of Care Code ED Jig And Fixture Maker for Janelle Medina
[2024-03-14 09:14] LABS: Basophils % 0.1 %; Lymphocytes # 0.8 10^3/uL (0.8-4.8); Lymphocytes % 9.1 %; Mean Corpuscular Volume 109.6 fl (82-101); Mean Platelet Volume 10.8 fL (7.4-10.4); Monocytes # 0.7 10^3/uL (0.2-0.9); Monocytes % 8.4 %; Neutrophils # 6.81 10^3/uL (1.8-7.7); Neutrophils % 81.2 %; Nucleated Red Blood Cells % 0.5 %; Platelet Count 95 10^3/cmm (157-399); Red Blood Count 3.56 10^6/uL (3.85-5.65); Red Cell Distribution Width 15.3 % (12.1-15.1); White Blood Count 8.38 10^3/uL (3.29-11.43)
[2024-03-14 09:37] LABS: Alanine Aminotransferase 25 U/L (0-41); Albumin Level 3.8 g/dL (3.5-5.2); Alkaline Phosphatase 38 U/L (40-130); Anion Gap 12.7 (5-19); Aspartate Amino Transferase 31 U/L (0-40); Blood Urea Nitrogen 48 mg/dL (8-23); Calcium 8.6 mg/dL (8.5-10.5); Carbon Dioxide 22 mmol/L (22-29); Chloride 106 mmol/L (98-107); Creatinine Clr Calc Pharmacy 50.6388; Glomerular Filtration Rate 37.9 mL/min (90-130); Glucose 231 mg/dL (65-115); Osmolality Calculated 302 mOsm/kg (285-295); Potassium 4.7 mmol/L (3.5-5.1); Sodium 136 mmol/L (136-145); Total Protein 7.8 g/dL (6.6-8.7)
[2024-03-14 09:38] LABS: Troponin(5th) Baseline 97 ng/L (0-15)
[2024-03-14] MEDS: FUROsemide 10 mg/mL SDV 4mL 40 MG IVP (09:41)
[2024-03-14 09:43] VITALS: BP 181/132; PULSE 73; O2SAT 95
--- NOTE | 2024-03-14 10:57 | ECG_ITS ---
[facility] Test Date: 2024-03-14 Pat Name: Pawan Marcum Department: Room: Gender: Male Inspector Health Care Facilities: : 1955 Requested By: Carlos Jules Order Number: [id number] Bebe MD: Sagar Newell M.D. Measurements Intervals [place] Rate: 71 P: 0 [place]: 0 QRS: -52 QRSD: 198 T: 129 QT: 469 QTc: 510 Interpretive Statements ELECTRONIC VENTRICULAR PACEMAKER Compared to ECG 03/14/2024 08:41:32 No significant changes Electronically Signed On 03-14-2024 14:22:33 CDT by Sagar Newell M.D. [id number]
[2024-03-14 11:03] LABS: Troponin 5 2HR 98.92 ng/L (0-15); Troponin 5 2HR Delta 1.92 ABS# (0-10)
[2024-03-14 11:10] VITALS: BP 160/119; PULSE 72; O2SAT 97
[2024-03-14 13:09] VITALS: BP 160/119; PULSE 72; RESP 24; TEMP 36.8; O2SAT 97
== END 2024-03-14 13:11 | disposition home or self-care (01) ==
PROVIDERS: Emergency Provider Family Medicine; PCP Family Medicine
DX: I13.0 Hypertensive heart and chronic kidney disease with heart failure and stage 1 through stage 4 chronic kidney disease, or unspecified chronic kidney disease (principal); E11.22 Type 2 diabetes mellitus with diabetic chronic kidney disease; N18.9 Chronic kidney disease, unspecified; I50.23 Acute on chronic systolic (congestive) heart failure; Z79.01 Long term (current) use of anticoagulants; Z79.82 Long term (current) use of aspirin; Z95.0 Presence of cardiac pacemaker; I42.8 Other cardiomyopathies; E78.2 Mixed hyperlipidemia
CPT/HCPCS: 36415; 71045; 80053; 84484; 85025; 93005; 96374; 99285; J1940

== ENCOUNTER 2024-03-16 20:00 | Outpatient (CLI) | payer MEDICARE, MEDICAID, SELFPAY | END 2024-03-16 20:01 | disposition home or self-care (01) | LOC: SLEEP 23:44 | PROVIDERS: PCP Family Medicine; Visit Provider Family Medicine | DX: G47.33 Obstructive sleep apnea (adult) (pediatric) (principal) | CPT/HCPCS: 95811 ==

== ENCOUNTER → 2024-03-29 11:30 | Outpatient (BNVA) | payer MEDICARE, MEDICAID, SELFPAY | PROVIDERS: PCP Family Medicine; Visit Provider Internal Medicine Cardiovascular Disease | DX: I13.0 Hypertensive heart and chronic kidney disease with heart failure and stage 1 through stage 4 chronic kidney disease, or unspecified chronic kidney disease (principal); E11.22 Type 2 diabetes mellitus with diabetic chronic kidney disease; N18.9 Chronic kidney disease, unspecified; I50.20 Unspecified systolic (congestive) heart failure; I42.8 Other cardiomyopathies; Z95.0 Presence of cardiac pacemaker; E78.2 Mixed hyperlipidemia; Z98.890 Other specified postprocedural states; Z86.79 Personal history of other diseases of the circulatory system; I26.99 Other pulmonary embolism without acute cor pulmonale; Z95.2 Presence of prosthetic heart valve; Z79.85 Long-term (current) use of injectable non-insulin antidiabetic drugs | CPT/HCPCS: 36415; 80048; 83880; 99214 ==

== ENCOUNTER → 2024-04-06 08:00 | Outpatient (BNVA) | payer MEDICARE, MEDICAID, SELFPAY | PROVIDERS: PCP Family Medicine; Visit Provider Psychiatry & Neurology Neurology | DX: G40.909 Epilepsy, unspecified, not intractable, without status epilepticus (principal) | CPT/HCPCS: 99203 ==

== ENCOUNTER 2024-04-08 09:29 | Outpatient (CLI) | payer MEDICARE, MEDICAID, SELFPAY ==
[2024-04-08 10:14] LABS: Anion Gap 12.5 (5-19); Blood Urea Nitrogen 34 mg/dL (8-23); Calcium 9.5 mg/dL (8.5-10.5); Carbon Dioxide 28 mmol/L (22-29); Chloride 103 mmol/L (98-107); Glomerular Filtration Rate 46.8 mL/min (90-130); Glucose 129 mg/dL (65-115); NT Pro B Type Natriuretic Pept 7518 pg/mL (0-125); Osmolality Calculated 297 mOsm/kg (285-295); Potassium 4.5 mmol/L (3.5-5.1); Sodium 139 mmol/L (136-145)
[2024-04-08 10:45] LABS: T3 Free 2.6 PG/ML (2.0-4.4); Thyroid Stimulating Hormone 1.71 uIU/mL (0.27-4.20)
== END 2024-04-08 09:30 | disposition home or self-care (01) ==
LOC: LAB 09:33
PROVIDERS: Nurse Practitioner Family; PCP Family Medicine; Visit Provider Internal Medicine Cardiovascular Disease
DX: I10 Essential (primary) hypertension (principal); I50.9 Heart failure, unspecified; R53.83 Other fatigue; D64.9 Anemia, unspecified; E78.2 Mixed hyperlipidemia
CPT/HCPCS: 36415; 80048; 83880; 84439; 84443; 84481

== ENCOUNTER → 2024-04-25 10:30 | Outpatient (BNVA) | payer MEDICARE, MEDICAID, SELFPAY | PROVIDERS: PCP Family Medicine; Visit Provider Nurse Practitioner Family | DX: I11.0 Hypertensive heart disease with heart failure (principal); I50.20 Unspecified systolic (congestive) heart failure; Z95.0 Presence of cardiac pacemaker | CPT/HCPCS: 36415; 80048; 83880; 99214 ==

== ENCOUNTER → 2024-05-06 09:20 | Outpatient (BNVA) | payer MEDICARE, MEDICAID, SELFPAY | PROVIDERS: PCP Family Medicine; Visit Provider Internal Medicine Cardiovascular Disease | DX: N18.32 Chronic kidney disease, stage 3b (principal); N18.9 Chronic kidney disease, unspecified; D63.1 Anemia in chronic kidney disease; I50.9 Heart failure, unspecified; I50.20 Unspecified systolic (congestive) heart failure | CPT/HCPCS: 80048; 80069; 82043; 82306; 82310; 83880; 83970; 85007; 85027 ==

== ENCOUNTER 2024-05-24 11:08 | Oncology outpatient (recurring) (ONCR) | payer MEDICARE, MEDICAID, SELFPAY ==
[2024-05-24 12:31] LABS: Basophils % 0.9 %; Eosinophils # 0.1 10^3/uL (0.0-0.8); Eosinophils % 2.6 %; Lymphocytes # 1.7 10^3/uL (0.8-4.8); Lymphocytes % 36.8 %; Mean Corpuscular HGB Conc 31.8 g/dL (30-55); Mean Corpuscular Hemoglobin 33.4 pg (27-33); Mean Corpuscular Volume 105.1 fl (82-101); Monocytes # 0.7 10^3/uL (0.2-0.9); Monocytes % 14.4 %; Neutrophils # 2.11 10^3/uL (1.8-7.7); Neutrophils % 45.3 %; Nucleated Red Blood Cells % 0 %; Platelet Count 109 10^3/cmm (157-399); Red Blood Count 3.71 10^6/uL (3.85-5.65); Red Cell Distribution Width 14.5 % (12.1-15.1); White Blood Count 4.65 10^3/uL (3.29-11.43)
[2024-05-24 13:01] LABS: Alanine Aminotransferase 11 U/L (0-41); Albumin Level 3.8 g/dL (3.5-5.2); Alkaline Phosphatase 31 U/L (40-130); Anion Gap 15.2 (5-19); Aspartate Amino Transferase 24 U/L (0-40); Blood Urea Nitrogen 28 mg/dL (8-23); Carbon Dioxide 24 mmol/L (22-29); Chloride 104 mmol/L (98-107); Globulin 3.5 g/dL (1.3-4.6); Glomerular Filtration Rate 46.7 mL/min (90-130); Glucose 106 mg/dL (65-115); Lactate Dehydrogenase 324 U/L (135-225); NT Pro B Type Natriuretic Pept 6142 pg/mL (0-125); Osmolality Calculated 294 mOsm/kg (285-295); Potassium 4.2 mmol/L (3.5-5.1); Sodium 139 mmol/L (136-145); Total Protein 7.3 g/dL (6.6-8.7)
== END 2024-05-30 23:59 | disposition home or self-care (01) ==
PROVIDERS: Nurse Practitioner Family; PCP Family Medicine; Visit Provider Internal Medicine Medical Oncology
DX: N18.9 Chronic kidney disease, unspecified (principal); D63.1 Anemia in chronic kidney disease; D64.9 Anemia, unspecified; I71.21 Aneurysm of the ascending aorta, without rupture; Z79.899 Other long term (current) drug therapy; R89.9 Unspecified abnormal finding in specimens from other organs, systems and tissues; I50.9 Heart failure, unspecified
CPT/HCPCS: 36415; 80053; 83010; 83615; 83880; 85025; 99214

== ENCOUNTER 2024-06-07 12:29 | Outpatient (CLI) | payer MEDICARE, MEDICAID, SELFPAY ==
--- NOTE | 2024-06-07 12:32 | XR_ITS ---
WS: [id number] XR chest 2V* [id number] REASON FOR EXAM: J22 - Unspecified acute lower respiratory infection FINDINGS: Previous sternotomy. Cardiac device overlying the left chest with trans left subclavian vein leads to the right atrium and right ventricle. Moderate tortuosity and ectasia of the thoracic aorta. Aortic valve replacement. Significant cardiomegaly. Enlarged upper lobe pulmonary veins. Large central pulmonary arteries. Small amount of fluid in the m inor fissure. The chest appears unchanged compared to 03/14/2024. No acute pulmonary parenchymal or pleural abnormal ity. XR/XR chest 2V* [id number] IMPRESSION: Cardiomegaly with pulmonary venous/pulmonary artery hypertension with no pulmon rob edema or other acute pulmonary abnormality.
== END 2024-06-07 12:30 | disposition home or self-care (01) ==
LOC: RAD 12:31
PROVIDERS: PCP Nurse Practitioner Family; Visit Provider Nurse Practitioner Family
DX: J22 Unspecified acute lower respiratory infection (principal); I51.7 Cardiomegaly; I27.20 Pulmonary hypertension, unspecified
CPT/HCPCS: 71046; 80053; 85025

== ENCOUNTER → 2024-06-14 10:08 | Outpatient (BNVA) | payer MEDICARE, MEDICAID, SELFPAY | PROVIDERS: PCP Nurse Practitioner Family; Visit Provider Nurse Practitioner Family | DX: R73.09 Other abnormal glucose (principal) | CPT/HCPCS: 83036 ==

== ENCOUNTER → 2024-06-17 08:45 | Outpatient (BNVA) | payer MEDICARE, MEDICAID, SELFPAY | PROVIDERS: Visit Provider Nurse Practitioner | DX: M19.011 Primary osteoarthritis, right shoulder (principal); M19.012 Primary osteoarthritis, left shoulder | CPT/HCPCS: 20610; 99214 ==

== ENCOUNTER → 2024-07-05 12:46 | Outpatient (BNVA) | payer MEDICARE, MEDICAID, SELFPAY | PROVIDERS: Visit Provider Psychiatry & Neurology Neurology | DX: G40.909 Epilepsy, unspecified, not intractable, without status epilepticus (principal) | CPT/HCPCS: 99212; 99213 ==

== ENCOUNTER → 2024-07-11 08:41 | Outpatient (BNVA) | payer MEDICARE, MEDICAID, SELFPAY | PROVIDERS: PCP Nurse Practitioner Family; Visit Provider Psychiatry & Neurology Neurology | DX: G40.909 Epilepsy, unspecified, not intractable, without status epilepticus (principal) | CPT/HCPCS: 80177 ==

== ENCOUNTER → 2024-08-04 09:49 | Outpatient (BNVA) | payer MEDICARE, MEDICAID, SELFPAY | PROVIDERS: PCP Nurse Practitioner Family; Visit Provider Internal Medicine Cardiovascular Disease | DX: I11.0 Hypertensive heart disease with heart failure (principal); Z98.890 Other specified postprocedural states; E78.2 Mixed hyperlipidemia; I42.8 Other cardiomyopathies; I50.20 Unspecified systolic (congestive) heart failure; Z95.0 Presence of cardiac pacemaker; I26.99 Other pulmonary embolism without acute cor pulmonale; E11.9 Type 2 diabetes mellitus without complications; Z79.01 Long term (current) use of anticoagulants | CPT/HCPCS: 99214 ==

== ENCOUNTER 2024-08-31 06:00 | Outpatient (RCR) | payer MEDICARE, MEDICAID, SELFPAY | END 2024-09-30 23:55 | disposition home or self-care (01) | LOC: TPT 06:00 | PROVIDERS: Visit Provider Nurse Practitioner Family | DX: R53.1 Weakness (principal); R26.9 Unspecified abnormalities of gait and mobility | CPT/HCPCS: 97162 ==

== ENCOUNTER 2024-09-19 11:55 | Oncology outpatient (recurring) (ONCR) | payer MEDICARE, MEDICAID, SELFPAY ==
[2024-09-19 12:15] LABS: Basophils # 0.1 10^3/uL (0.0-0.1); Basophils % 1.1 %; Eosinophils # 0.2 10^3/uL (0.0-0.8); Eosinophils % 4.2 %; Hematocrit 44.7 % (37-53); Lymphocytes # 1.2 10^3/uL (0.8-4.8); Mean Corpuscular HGB Conc 31.1 g/dL (30-55); Mean Corpuscular Hemoglobin 31.8 pg (27-33); Mean Corpuscular Volume 102.3 fl (82-101); Mean Platelet Volume 9.8 fL (7.4-10.4); Monocytes # 0.5 10^3/uL (0.2-0.9); Monocytes % 10.1 %; Neutrophils # 2.76 10^3/uL (1.8-7.7); Neutrophils % 58.4 %; Nucleated Red Blood Cells % 0 %; Platelet Count 96 10^3/cmm (157-399); Red Blood Count 4.37 10^6/uL (3.85-5.65); Red Cell Distribution Width 14.2 % (12.1-15.1); White Blood Count 4.73 10^3/uL (3.29-11.43)
[2024-09-19 12:34] LABS: Alanine Aminotransferase 14 U/L (0-41); Albumin Level 3.7 g/dL (3.5-5.2); Alkaline Phosphatase 39 U/L (40-130); Anion Gap 13.5 (5-19); Aspartate Amino Transferase 30 U/L (0-40); Blood Urea Nitrogen 43 mg/dL (8-23); Calcium 9.6 mg/dL (8.5-10.5); Carbon Dioxide 29 mmol/L (22-29); Chloride 100 mmol/L (98-107); Globulin 3.3 g/dL (1.3-4.6); Glomerular Filtration Rate 37.8 mL/min (90-130); Glucose 195 mg/dL (65-115); Osmolality Calculated 302 mOsm/kg (285-295); Potassium 4.5 mmol/L (3.5-5.1); Sodium 138 mmol/L (136-145); Total Bilirubin 0.5 mg/dL (0.15-1.2)
[2024-09-19 12:48] LABS: Creatinine Clr Calc Pharmacy 48.0933
== END 2024-09-30 23:59 | disposition home or self-care (01) ==
PROVIDERS: Internal Medicine Medical Oncology; Visit Provider Internal Medicine Medical Oncology
DX: D64.9 Anemia, unspecified; Z53.9 Procedure and treatment not carried out, unspecified reason
CPT/HCPCS: 36415; 80053; 80177; 85025; 99214

== ENCOUNTER 2024-10-01 06:30 | Outpatient (RCR) | payer MEDICARE, MEDICAID, SELFPAY | END 2024-10-28 23:59 | disposition home or self-care (01) | LOC: TPT 06:30 | PROVIDERS: Visit Provider Nurse Practitioner Family | DX: R53.1 Weakness (principal); R26.9 Unspecified abnormalities of gait and mobility | CPT/HCPCS: 97110 ==

== ENCOUNTER → 2024-11-03 12:29 | Outpatient (BNVA) | payer MEDICARE, MEDICAID, SELFPAY | PROVIDERS: PCP Nurse Practitioner Family; Visit Provider Nurse Practitioner Family | DX: E11.9 Type 2 diabetes mellitus without complications (principal); I10 Essential (primary) hypertension; R97.20 Elevated prostate specific antigen [PSA] | CPT/HCPCS: 80053; 80061; 83036; 84153; 84443; 85025 ==

== ENCOUNTER → 2024-11-10 11:22 | Outpatient (BNVA) | payer MEDICARE, MEDICAID, SELFPAY | PROVIDERS: PCP Nurse Practitioner Family; Visit Provider Psychiatry & Neurology Neurology | DX: G40.909 Epilepsy, unspecified, not intractable, without status epilepticus (principal); G47.30 Sleep apnea, unspecified | CPT/HCPCS: 99212 ==

== ENCOUNTER → 2024-12-12 13:32 | Outpatient (BNVA) | payer MEDICARE, SELFPAY | PROVIDERS: PCP Nurse Practitioner Family; Visit Provider Nurse Practitioner Family | DX: N18.9 Chronic kidney disease, unspecified (principal); D63.1 Anemia in chronic kidney disease | CPT/HCPCS: 80069; 82043; 82310; 83970; 85025 ==

== ENCOUNTER 2024-12-24 21:03 | Emergency (ER) | payer MEDICARE, MEDICAID, SELFPAY ==
[2024-12-24 21:19] VITALS: BP 91/58; PULSE 70; RESP 18; TEMP 36.6; O2SAT 96; BMI 33.5
== END 2024-12-24 22:12 | disposition left against medical advice (07) ==
PROVIDERS: Emergency Provider Family Medicine; PCP Nurse Practitioner Family
DX: Z53.21 Procedure and treatment not carried out due to patient leaving prior to being seen by health care provider (principal)

== ENCOUNTER → 2025-01-03 07:58 | Outpatient (BNVA) | payer MEDICARE, MEDICAID, SELFPAY | PROVIDERS: PCP Nurse Practitioner Family; Referring Provider Psychiatry & Neurology Neurology; Visit Provider Psychiatry & Neurology Neurology | DX: Z86.69 Personal history of other diseases of the nervous system and sense organs (principal); R56.9 Unspecified convulsions | CPT/HCPCS: 95813; 95819 ==

== ENCOUNTER → 2025-01-10 13:53 | Outpatient (BNVA) | payer MEDICARE, MEDICAID, SELFPAY | PROVIDERS: PCP Nurse Practitioner Family; Visit Provider Nurse Practitioner Family | DX: R07.81 Pleurodynia (principal) | CPT/HCPCS: 71046; 80053; 85025 ==

== ENCOUNTER 2025-02-22 16:39 | Inpatient (IN) | payer MEDICARE, MEDICAID, SELFPAY ==
--- OUTSIDE RECORDS SUMMARY | 2024-12-26 06:00 | XMS_ITS ---
Author Organization [facility] [employer] Address [address] [place], [place] [id number] Care Team Providers Care Nitrogen Operator Name Role Phone King MARIAN, Lora Primary Care Provider Aura Lloyd MD, Merritt Unavailable [phone] White FLIGHT CREW TIME CLERKMarianne Unavailable Unavailable REASON FOR VISIT PROCEDURE Encounters Encounter Location Date Provider Diagnosis [facility] [address] [place] [address] 12/26/2024 Merritt Lloyd Plan Of Treatment No Information Progress Notes * Pawan MARCUM EDOB:[birth year] (69 yo M)Acc No.[id number]:12/26/2024 Patient: Rick SALEEMPawan Provider: Venkatesh Lloyd :1955 A ge:69 Y S ex:Male Date:12/26/2024 Address:[address] [place], [place] [id number] Pcp:Lora Buchanan NP Subjective: * Chief Complaints: * 1 . PROCEDURE. * Medical History: Objective: Assessment: Plan: * Treatment: * Images: * Electronic signature of Sajan Lloyd MD on 02/22/2025 at 04:54 PM CDT Sign off status: Pending * Provider: Venkatesh Lloyd Date: 0 12/26/2024 Generated for Radha ng/Faadama/eTransmitting on: 0 02/22/2025 04:54 PM CDT
--- OUTSIDE RECORDS SUMMARY | 2025-01-09 06:00 | XMS_ITS ---
Author Organization [facility] [employer] Address [address] [place], [place] [id number] Care Team Providers Care Diamond Assorter Name Role Phone King MARIAN, Lora Primary Care Provider Aura Lloyd MD, Merritt Unavailable [phone] White STEEL ENGRAVERMarianne Unavailable Unavailable REASON FOR VISIT PROCEDURE Encounters Encounter Location Date Provider Diagnosis [facility] [address] [facility] [address] 01/09/2025 Merritt Lloyd Plan Of Treatment No Information Progress Notes * Pawan MARCUM EDOB:[birth year] (69 yo M)Acc No.[id number]:01/09/2025 Patient: Rick SALEEMPawan Provider: Venkatesh Lloyd :1955 A ge:69 Y S ex:Male Date:01/09/2025 Address:[address] [place], [place] [id number] Pcp:Lora Buchanan NP Subjective: * Chief Complaints: * 1 . PROCEDURE. * Medical History: Objective: Assessment: Plan: * Treatment: * Images: * Electronic signature of Sajan Lloyd MD on 02/22/2025 at 04:54 PM CDT Sign off status: Pending * Provider: Venkatesh Lloyd Date: 0 01/09/2025 Generated for Radha mccrary/Faadama/eTransmitting on: 0 02/22/2025 04:54 PM CDT
[2025-02-22] VITALS (15 sets, daily range): BP systolic 92–114; BP diastolic 48–74; PULSE 61–74; RESP 14–40; TEMP 37.6; O2SAT 86–96
--- NOTE | 2025-02-22 16:41 | ECG_ITS ---
[facility] Test Date: 2025-02-22 Pat Name: Pawan Marcum Department: Room: Gender: Male E Commerce Solution Architect: : 1955 Requested By: Zina Kessler Order Number: [id number] Bebe MD: Sagar Newell M.D. Measurements Intervals [place] Rate: 70 P: 0 [place]: 0 QRS: -82 QRSD: 205 T: 97 QT: 471 QTc: 509 Interpretive Statements ELECTRONIC VENTRICULAR PACEMAKER Compared to ECG 03/14/2024 10:57:00 No significant changes Electronically Signed On 03-02-2025 09:27:28 CDT by Sagar Newell M.D. [email or web address] [id number]
--- NOTE | 2025-02-22 16:41 | CTR_ITS ---
PROCEDURE INFORMATION: Exam: CTA Head With Contrast, Arteriography Exam date and time: 02/22/2025 4:59 PM Age: 69 years old Clinical indication: Stroke-like symptoms; Left facial droop; Additional info: CVA TECHNIQUE: Imaging protocol: Computed tomographic angiography of the head with contrast. Exam focused on the arteries. 3D rendering (Not supervised by radiologist): MIP and/or 3D reconstructed images were created by the technologist. Radiation optimization: All CT scans at this facility use at least one of these dose optimization techniques: automated exposure control; mA and/or kV adjustment per patient size (includes targeted exams where dose is matched to clinical indication); or iterative reconstruction. Contrast material: OMNIPAQUE 350; Contrast volume: 100 ml; Contrast route: INTRAVENOUS (IV); COMPARISON: CT angio headneck* [id number] 09/22/2023 5:48 PM RADIATION DOSE METRICS: Total DLP (mGy-cm): 506 FINDINGS: ANTERIOR CIRCULATION: Right internal carotid artery: Intracranial segment is patent with no significant stenosis. No aneurysm. Right middle cerebral artery: No occlusion or significant stenosis. No aneurysm. Right anterior cerebral artery: No occlusion or significant stenosis. No aneurysm. Left internal carotid artery: Intracranial segment is patent with no significant stenosis. No aneurysm. Left middle cerebral artery: No occlusion or significant stenosis. No aneurysm. Left anterior cerebral artery: No occlusion or significant stenosis. No aneurysm. POSTERIOR CIRCULATION: Right vertebral artery: The intracranial portion of the right vertebral artery is very small. This is a commonly seen nonspecific finding which may represent variant anatomy. Left vertebral artery: No occlusion or significant stenosis. No aneurysm. Basilar artery: No occlusion or significant stenosis. No aneurysm. Right posterior cerebral artery: No occlusion or significant stenosis. No aneurysm. Left posterior cerebral artery: No occlusion or significant stenosis. No aneurysm. Brain: No definite mass, mass effect, or midline shift. Cerebral ventricles: No ventriculomegaly. Bones/joints: Unremarkable. No acute fracture. Soft tissues: Unremarkable. PROCEDURE INFORMATION: Exam: CTA Neck With Contrast Exam date and time: 02/22/2025 4:59 PM Age: 69 years old Clinical indication: Stroke-like symptoms; Left facial droop; Additional info: CVA TECHNIQUE: Imaging protocol: Computed tomographic angiography of the neck with contrast. Exam focused on the cervical segments of the vasculature. 3D rendering (Not supervised by radiologist): MIP and/or 3D reconstructed images were created by the technologist. Radiation optimization: All CT scans at this facility use at least one of these dose optimization techniques: automated exposure control; mA and/or kV adjustment per patient size (includes targeted exams where dose is matched to clinical indication); or iterative reconstruction. Contrast material: OMNIPAQUE 350; Contrast volume: 100 ml; Contrast route: INTRAVENOUS (IV); COMPARISON: CT angio headneck* [id number] 09/22/2023 5:48 PM RADIATION DOSE METRICS: Total DLP (mGy-cm): 506 FINDINGS: Limitations: Motion artifact limits evaluation. Right common carotid artery: No stenosis. No dissection or occlusion. Right internal carotid artery: No stenosis of the extracranial segment. No dissection or occlusion. Right external carotid artery: No occlusion or stenosis of the origin. Left common carotid artery: No stenosis. No dissection or occlusion. Left internal carotid artery: No stenosis of the extracranial segment. No dissection or occlusion. Left external carotid artery: No occlusion or stenosis of the origin. Right vertebral artery: No stenosis. No dissection or occlusion. Left vertebral artery: No stenosis. No dissection or occlusion. Other arteries: Calcified atherosclerotic plaque noted. Veins: Reflux of contrast into the right external jugular vein. Soft tissues: Normal. No significant soft tissue swelling. Bones/joints: Sternotomy wires noted. CT/CT angio headne* [id number] IMPRESSION: 1. No large vessel occlusion or significant stenosis. 2. The intracranial portion of the right vertebral artery is very small. This is a commonly seen nonspecific finding which may represent variant anatomy. IMPRESSION: No acute vascular findings. REFERENCES: NASCET CRITERIA. The degree of stenosis in the cervical segment of the internal carotid artery is based on NASCET criteria. Normal is no stenosis. Mild is less than 50% stenosis. Moderate is 50-69% stenosis. Severe is 70% to 99% stenosis. Total occlusion is no detectable patent lumen.
--- NOTE | 2025-02-22 16:41 | CTR_ITS ---
PROCEDURE INFORMATION: Exam: CT Head Without Contrast Exam date and time: 02/22/2025 4:44 PM Age: 69 years old Clinical indication: Stroke-like symptoms; Right facial droop; Additional info: Symptoms of acute stroke TECHNIQUE: Imaging protocol: Computed tomography of the head without contrast. Radiation optimization: All CT scans at this facility use at least one of these dose optimization techniques: automated exposure control; mA and/or kV adjustment per patient size (includes targeted exams where dose is matched to clinical indication); or iterative reconstruction. Other technique: STROKE PROTOCOL was implemented. COMPARISON: CT head wo con* [id number] 12/06/2023 6:59 AM RADIATION DOSE METRICS: Total DLP (mGy-cm): 2522.58 FINDINGS: Limitations: Motion artifact limits evaluation. Brain: Generalized global atrophy. No intracranial masses or mass effect. No midline shift. No abnormal extra-axial collections. No acute intracranial hemorrhage. Slight hypodensity in the posterior left frontal lobe may represent artifact versus changes related to infarction. Patchy hypodensity in the periventricular and subcortical white matter in keeping with chronic microvascular ischemic changes. Right thalamic old lacunar infarction again noted. Small old left cerebellar hemisphere infarction. Cerebral ventricles: Prominence of the ventricles commensurate with atrophy. No emigdio hydrocephalus. Paranasal sinuses: Visualized sinuses are unremarkable. No fluid levels. Mastoid air cells: Visualized mastoid air cells are well aerated. Bones: Unremarkable. No acute fracture. Soft tissues: Unremarkable. CT/CT head thrombolytic [id number] IMPRESSION: Slight hypodensity in the posterior left frontal lobe may represent artifact versus changes related to infarction. Recommend MRI with diffusion-weighted imaging for further evaluation. ASSESSMENT: ASPECTS ([place] Stroke Program Early CT Score) is 8. COMMENTS: Changes related to acute infarction may remain occult for up to [address] imaging. Recommend MRI with diffusion weighted imaging to exclude acute infarction if clinically indicated.
--- NOTE | 2025-02-22 16:53 | W.ED.NEUROSD ---
HPI - Neuro Symptoms/Deficit General: Chief Complaint: Neuro Symptoms/Deficit Stated Complaint: Stroke Time Seen by Provider: 02/22/25 16:41 Source: patient and EMS Mode of arrival: EMS Limitations: no limitations History of Present Illness: 69-year-old male with concern for stroke. Patient last known normal was 230 he currently has slurred speech some slight left-sided facial droop some left-sided weakness. Patient is on Eliquis history of A-fib. Has a history of seizures in the past as well. He is able to answer my questions and follow commands but is slurring his speech Associated symptoms: Deny chest pain, headache(s), nausea or vomiting Related Data Home Medications ?Medication ?Instructions ?Recorded ?Confirmed aspirin 81 mg tablet,delayed 81 mg PO DAILY 03/14/24 01/18/25 release diclofenac sodium 1 % topical gel 2 g topical QID PRN JOINT PAIN 03/14/24 01/18/25 (Voltaren Arthritis Pain) mecobalamin (vitamin B12) 1,000 1,000 mcg PO DAILY 03/14/24 01/18/25 mcg disintegrating tablet,sublingual zinc sulfate 50 mg zinc (220 mg) 50 mg PO DAILY 03/14/24 01/18/25 capsule ferrous sulfate 325 mg (65 mg mg PO 04/06/24 01/18/25 iron) tablet (FeroSul) cholecalciferol (vitamin D3) 125 125 mcg PO DAILY 07/05/24 01/18/25 mcg (5,000 unit) tablet Previous Rx's ?Medication ?Instructions ?Recorded diabetic shoes with inserts #1 ea 02/28/21 Blood pressure cuff and machine #1 ea 06/27/22 o2 at 3L per nasal cannula #1 ea 08/11/22 nitroglycerin 0.3 mg sublingual 0.3 mg sublingual Q5M PRN chest 10/08/22 tablet pain #30 tabs Diabetic shoes with inserts #1 ea 04/24/23 folic acid 1 mg tablet 1 mg PO DAILY #30 tabs 02/18/24 miscellaneous medical supply 1 ea miscellaneous DAILY venous 03/27/24 ulcer right leg #1 ea potassium chloride 20 mEq 20 meq PO DAILY #90 tabs 03/30/24 tablet,extended release sacubitril 97 mg-valsartan 103 mg 1 tab PO BID #180 tabs 04/25/24 tablet furosemide 20 mg tablet 20 mg PO DAILY EDEMA #90 tabs 05/09/24 wheelchair #1 ea 06/02/24 albuterol sulfate 2.5 mg/3 mL 2.5 mg (3 mL) inhalation QID PRN 06/07/24 (0.083 %) solution for nebulization shortness of breath or wheezing #75 mL compressor, for nebulizer #1 ea 06/07/24 nebulizer accessories #1 ea 06/07/24 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 sensor (Dexcom G7 #3 ea 06/20/24 Sensor device) 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,receiver bulk system,cont #1 ea 06/20/24 (Dexcom G7 Motor And Chassis Inspector) apixaban 5 mg tablet (Eliquis) 5 mg PO BID #180 tabs 11/03/24 atorvastatin 40 mg tablet 40 mg PO DAILY #90 tabs 11/03/24 dapagliflozin propanediol 10 mg 10 mg PO ONCE #90 tabs 11/03/24 tablet (Farxiga) dulaglutide 1.5 mg/0.5 mL 1.5 mg (0.5 mL) SUBCUT .weekly #6 11/03/24 subcutaneous pen injector mL ([facility]) famotidine 40 mg tablet 40 mg PO BID #90 tabs 11/03/24 fenofibrate 160 mg tablet 160 mg PO DAILY #90 tabs 11/03/24 metolazone 2.5 mg tablet See Rx Instructions .Route 11/03/24 .COMPLEX #90 tabs tamsulosin 0.4 mg capsule 0.4 mg PO DAILY #90 caps 11/03/24 tizanidine 4 mg tablet 4 mg PO Q8H PRN Muscle Spasticity 11/03/24 #90 tabs levetiracetam 500 mg tablet 500 mg PO QDAY #30 tabs 12/02/24 sildenafil 50 mg tablet (Viagra) 50 mg PO DAILY PRN sexual activity 12/15/24 #10 tabs prednisone 20 mg tablet 20 mg PO BID #10 tabs 01/10/25 Allergies Allergy/AdvReac Type Severity Reaction Status Date / Time fentanyl Allergy Unknown Verified 01/18/25 15:43 lisinopril AdvReac Mild Coughing Verified 01/18/25 15:43 Review of Systems Const: Denies: fever(s), chills, body aches or change in appetite Eyes: Denies: blurry vision or eye discomfort ENMT: Denies: throat pain or dental pain Card: Denies: chest pain Resp: Denies: dyspnea GI: Denies: abdominal pain, nausea, vomiting or diarrhea Musc: Denies: neck pain or back pain Skin/Breast: Denies: rash Neuro: Reports: weakness in extremities and Slurred speech present; Denies: headache(s) PFSH ED PFSH: Medical History Atrial fibrillation Rotator cuff arthropathy of right shoulder Osteoarthritis of shoulders, bilateral Bilateral shoulder pain Pulmonary HTN Nonischemic cardiomyopathy Mixed hyperlipidemia Nonrheumatic aortic (valve) stenosis HTN (hypertension) Severe obstructive sleep apnea Nocturnal hypoxemia [place] (obstructive sleep apnea) ARUNA (acute kidney injury) Bilateral foot pain Generalized weakness Acute encephalopathy Generalized muscle weakness Acute alteration in mental status Confusion Epistaxis Anticoagulation adequate with anticoagulant therapy Transaminitis Daytime sleepiness Enrolled in chronic care management Gout attack Acute and chronic respiratory failure with hypoxia Ascending aortic aneurysm Congestive heart failure Pneumonia Acute and chronic respiratory failure with hypoxia Erectile dysfunction Type 2 diabetes mellitus Chronic kidney disease Anemia Diarrhea Diabetic foot Idiopathic gout, right ankle and foot DDD (degenerative disc disease), lumbosacral Surgical History Hx of arthroscopy of left knee Hx of tooth extraction History of cardiac pacemaker Hx of heart surgery (2017) Aortic valve replacement and aneurysm repair Family History Mother CAD (coronary artery disease) Brother Cancer Other Diabetes mellitus, type 2 Hypertension Denies family history of Diabetes Clotting disorder Dementia Chronic kidney disease (CKD) Suicide Anesthesia complication Bleeding disorder Lung disease Stroke Social History Smoking and tobacco/nicotine status: never used tobacco/nicotine Second hand smoke exposure: No Alcohol intake: current Alcohol intake frequency: holidays/special occasions only Substance/Drug Use: never Adopted: No Caregiver/support person: Yes (spouse) Lives independently: Yes Household members: spouse and children Housing: House Marital status: Number of children: 3 Number of grandchildren: 3 Highest education level completed: 6th Grade service: No Current occupational status: disabled Pets and animals: Yes Current gender identity: Male Special pola needs: No Agree to transfusion: Yes NIH stroke score NIHSS: Level Of Consciousness - 1a: 0 Level Of Consciousness Questions - 1b: Both Correct Level Of Consciousness Commands - 1c: Both Correct Best Gaze - 2: Partial Gaze Palsy Visual Guerrero - 3: Complete Hemianopia Facial Palsy - 4: Minor Paralysis Motor Arm Right - 5: No Drift Motor Arm Left - 5: Drift Motor Leg Right - 6: No Drift Motor Leg Left - 6: Drift Limb Ataxia - 7: Absent Sensory - 8: Mild To Moderate Loss Best Language - 9: Mild/Moderate Aphasia Dysarthia - 10: Mild/Moderate Dysarthia Extinction And Inattention - 11: 1 Score: Total Score: 10 Physical Exam Const: COMMON NORMALS: patient oriented x3 HENMT: COMMON NORMALS: normocephalic and atraumatic HEAD & SCALP: normocephalic and atraumatic Eye: COMMON NORMALS: Equal, round and reactive pupils present and EOMs intact bilaterally PUPIL: Yes Equal, round and reactive pupils present Neck/C-Spine: COMMON NORMALS: full ROM and supple Chest: COMMONS NORMALS: normal inspection of the chest and normal palpation of entire chest wall Resp: COMMON NORMALS: normal respiratory effort, No retractions, No use of accessory muscles and clear to auscultation bilaterally AUSCULTATION: clear to auscultation bilaterally Cardio: COMMON NORMALS: regular rate, regular rhythm and No murmurs present (Cardio) RATE: regular rate RHYTHM: regular rhythm GI: COMMON NORMALS: Normal to inspection, nondistended, normoactive bowel sounds present, Soft to palpation, non-tender and no masses PALPATION: Yes Soft to palpation Extremity: COMMON NORMALS: normal to inspection and full ROM Neuro: COMMON NORMALS: patient oriented x3 OTHER: Patient has slurred speech he has left-sided neglect some left-sided weakness Psych: COMMON NORMALS: mental status grossly normal, Normal thought process present and cooperative THOUGHT PROCESS: Normal thought process present Skin: COMMON NORMALS: no rashes or lesions noted and no wounds GENERAL SKIN EXAM: no rashes or lesions noted Course Vital Signs: Vital signs: Vital Signs Temperature 99.6 F 02/22/25 18:00 Pulse Rate 70 02/22/25 20:03 Respiratory Rate 40 H 02/22/25 18:05 Blood Pressure 114/73 02/22/25 20:03 Pulse Oximetry 94 02/22/25 20:03 Oxygen Delivery Me thod Nasal Cannula 02/22/25 20:03 Oxygen Flow Rate 2 02/22/25 20:03 MDM - Neuro Symptoms/Deficit Medical Decision Making Patient presented here as a stroke alert last known normal was at 230 he is not a TNKase candidate as he is on Eliquis CTA showed no large vessel occlusion he also was hyponatremic with acute kidney injury x-ray shows possible pneumonia versus some pulm edema from CHF did start him on antibiotics give him IV fluids he did not get a full sepsis bolus due to his CHF. Spoke to hospitalist will admit to ICU Medical Records I reviewed the patient's medical records. Lab Data I reviewed the patient's lab results. 02/22/25 17:12 02/22/25 17:[address] 02/22/25 16:41 IMPRESSION: Slight hypodensity in the posterior left frontal lobe may represent artifact versus changes related to infarction. Recommend MRI with diffusion-weighted imaging for further evaluation. ASSESSMENT: ASPECTS (Domitila Stroke Program Early CT Score) is 8. COMMENTS: Changes related to acute infarction may remain occult for up to [address] imaging. Recommend MRI with diffusion weighted imaging to exclude acute infarction if clinically indicated. ADDENDUM: 02/22/25 1708 COMMENT: THIS REPORT CONTAINS FINDINGS THAT MAY BE CRITICAL TO PATIENT CARE. The exam findings were verbally communicated by me to SONA DELEON via telephone conference at 5:06 PM CDT on 02/22/2025. The findings were acknowledged and understood. Head/Neck CTA 02/22/25 16:41 IMPRESSION: 1. No large vessel occlusion or significant stenosis. 2. The intracranial portion of the right vertebral artery is very small. This is a commonly seen nonspecific finding which may represent variant anatomy. IMPRESSION: No acute vascular findings. REFERENCES: NASCET CRITERIA. The degree of stenosis in the cervical segment of the internal carotid artery is based on NASCET criteria. Normal is no stenosis. Mild is less than 50% stenosis. Moderate is 50-69% stenosis. Severe is 70% to 99% stenosis. Total occlusion is no detectable patent lumen. ADDENDUM: 02/22/25 7300 COMMENT: THIS REPORT CONTAINS FINDINGS THAT MAY BE CRITICAL TO PATIENT CARE. The exam findings were verbally communicated by me to SONA DELEON via telephone conference at 5:30 PM CDT on 02/22/2025. The findings were acknowledged and understood. Laboratory Results WBC 10.31 10^3/uL (3.29-11.43) 02/22/25 17:12 RBC 3.94 10^6/uL (3.85-5.65) 02/22/25 17:12 Hgb 12.90 g/dL (11.27-16.99) 02/22/25 17:12 Hct 39.4 % (37-53) 02/22/25 17:12 MCV 100.0 fl (82-101) 02/22/25 17:12 MCH 32.7 pg (27-33) 02/22/25 17:12 MCHC 32.7 g/dL (30-55) 02/22/25 17:12 RDW 13.5 % (12.1-15.1) 02/22/25 17:12 Plt Count 92 10^3/cmm (157-399) L 02/22/25 17:12 MPV 11.1 fL (7.4-10.4) H 02/22/25 17:12 Neut % (Auto) 83.7 % 02/22/25 17:12 Lymph % (Auto) 8.5 % 02/22/25 17:12 [place] % (Auto) 7.1 % 02/22/25 17:12 Eos % (Auto) 0.0 % 02/22/25 17:12 Baso % (Auto) 0.2 % 02/22/25 17:12 Neut # (Auto) 8.63 10^3/uL (1.8-7.7) H 02/22/25 17:12 Lymph # (Auto) 0.9 10^3/uL (0.8-4.8) 02/22/25 17:12 [place] # (Auto) 0.7 10^3/uL (0.2-0.9) 02/22/25 17:12 Eos # (Auto) 0.0 10^3/uL (0.0-0.8) 02/22/25 17:12 Baso # (Auto) 0.0 10^3/uL (0.0-0.1) 02/22/25 17:12 Nucleated RBC % (auto) 0 % 02/22/25 17:12 Nucleated RBCs # 0.0 /100WBC 02/22/25 17:12 PT 18.50 SECONDS (12.1-14.9) H 02/22/25 17:12 INR 1.44 (0.8-1.2) H 02/22/25 17:12 APTT 29.9 SECONDS (23.9-36.7) 02/22/25 17:12 Sodium 126 mmol/L (136-145) L 02/22/25 17:12 Potassium 4.7 mmol/L (3.5-5.1) 02/22/25 17:12 Chloride 93 mmol/L (98-107) L 02/22/25 17:12 Carbon Dioxide 18 mmol/L (22-29) L 02/22/25 17:12 Anion Gap 19.7 (5-19) H 02/22/25 17:12 BUN 77 mg/dL (8-23) H 02/22/25 17:12 Creatinine 3.5 mg/dL (0.7-1.2) H 02/22/25 17:12 GFR Calculation 17.6 mL/min (90-130) L 02/22/25 17:12 Glucose 142 mg/dL (65-115) H 02/22/25 17:12 POC Glucose 153 mg/dL (70-110) H 02/22/25 17:18 Calculated Osmolality 287 mOsm/kg (285-295) 02/22/25 17:12 Lactic Acid 1.8 mmol/L (0.5-2.2) 02/22/25 17:12 Calcium 8.5 mg/dL (8.5-10.5) 02/22/25 17:12 Total Bilirubin 1.4 mg/dL (0.15-1.2) H 02/22/25 17:12 AST 25 U/L (0-40) 02/22/25 17:12 ALT 15 U/L (0-41) 02/22/25 17:12 Alkaline Phosphatase 32 U/L (40-130) L 02/22/25 17:12 NT-Pro-B Natriuret Pep 9506 pg/mL (0-125) H 02/22/25 17:12 Total Protein 7.0 g/dL (6.6-8.7) 02/22/25 17:12 Albumin 3.5 g/dL (3.5-5.2) 02/22/25 17:12 Globulin 3.5 g/dL (1.3-4.6) 02/22/25 17:12 Urine Color Yellow (Yellow) 02/22/25 17:50 Urine Appearance Clear (CLEAR) 02/22/25 17:50 Urine pH 5.0 (5-7) 02/22/25 17:50 Ur Specific [place] 1.025 (1.005-1.030) 02/22/25 17:50 Urine Protein Negative (Negative) 02/22/25 17:50 Urine Glucose (UA) 2+ (Normal) H 02/22/25 17:50 Urine Ketones Negative (Negative) 02/22/25 17:50 Urine Blood 1+ (Negative) A 02/22/25 17:50 Urine Nitrate Negative (Negative) 02/22/25 17:50 Urine Bilirubin Negative (Negative) 02/22/25 17:50 Urine Urobilinogen 0.2 mg/dL (Negative) 02/22/25 17:50 Ur Leukocyte Esterase Negative (Negative) 02/22/25 17:50 Urine RBC 11-20 /hpf (0-2) H 02/22/25 17:50 Urine WBC 0-5 /hpf (0-5) 02/22/25 17:50 Ur Squamous Epith Cells 0-5 /hpf (0-5) 02/22/25 17:50 Amorphous Sediment Not Reportable 02/22/25 17:50 Urine Bacteria None seen /hpf (NONE) 02/22/25 17:50 Hyaline Casts 2.05 /lpf 02/22/25 17:50 Urine Opiates Screen Negative ng/mL (Negative) 02/22/25 17:50 Ur Barbiturates Screen Negative ng/mL (Negative) 02/22/25 17:50 Ur Phencyclidine Scrn Negative ng/mL (Negative) 02/22/25 17:50 Ur Amphetamines Screen Negative ng/mL (Negative) 02/22/25 17:50 U Benzodiazepines Scrn Negative ng/mL (Negative) 02/22/25 17:50 Urine Cocaine Screen Negative ng/mL (Negative) 02/22/25 17:50 U Marijuana (THC) Screen Negative ng/mL (Negative) 02/22/25 17:50 All radiology interpretation(s) finalized by discharge Critical Care Time Critical Care Time: Critical Care Time: Yes Total Critical Care Time: 50 Attestation: The high probability of a clinically significant, sudden or life threatening deterioration of the patient's 50 system(s) required my full and direct attention, intervention and personal management. The critical care time is as shown. This time is in addition to time spent performing any reported procedures but includes the following: [x] Data and vital sign review and interpretation [x] Patient assessment, examination and intervention [x] Documentation [x] Medication orders and management Discharge Plan Discharge Patient Disposition: Admitted As Inpatient Clinical Impression: Acute CVA (cerebrovascular accident), Hyponatremia, ARUNA (acute kidney injury), CHF (congestive heart failure) Condition: Stable Coding Level of Care Code ED Colorist Photography for Janelle Medina
--- OUTSIDE RECORDS SUMMARY | 2025-02-22 16:55 | XMS_ITS | Clinical Summary ---
Author Organization [employer] 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 Gender Identity Not on file Sexual Orientation Not on file Plan of Treatment Health Maintenance Due Date Last Done Comments DTAP/TDAP/TD VACCINES (1 - Tdap) 1976 COLORECTAL SCREENING 2002 Colorectal Cancer Screening 2002 FIT-DNA Q 3 years 2002 FIT/FOBT Q 1 year 2002 Flex Sig/CT Colonography Q 5 years 2002 PNEUMOCOCCAL VACCINE 50+ YEARS (1 of 1 - PCV) 04/14/20 07 ZOSTER VACCINE (1 of 2) 2007 INFLUENZA VACCINE (#1) 2024 RSV VACCINE (60+ or ) (1 - 1-dose 75+ series) 2032 Care Teams Casting Repairer Relationship Specialty Start Date End Date Simran Hyman MD NO ADDRESS ON FILE PCP - General 12/30/05
--- OUTSIDE RECORDS SUMMARY | 2025-02-22 16:55 | XMS_ITS | Encounter Summary ---
Author Organization [facility] Address [address] [place] [address] Care Team Providers Care Mailing Specialist Name Role Phone Simran Hyman MD Primary Care Provider Unavail le Encounter Details Date Type Department Care Team (Latest Contact Info) Description 12/30/2005 Outpatient Historical [facility] [address] 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
--- OUTSIDE RECORDS SUMMARY | 2025-02-22 16:55 | XMS_ITS | Encounter Summary ---
Author Organization [facility] Address [address] [place] [address] Care Team Providers Care Correctional Program Officer Name Role Phone Simran Hyman MD Primary Care Provider Unavail le Encounter Details Date Type Department Care Team (Latest Contact Info) Description 12/30/2005 Outpatient Historical [facility] [address] [place] [address] [facility] [address] [place] [address] Romana Yan MD [address] [facility] [address] [place] [address] Degeneration of Lumbar or Lumbosacral Intervertebral Disc (Primary Dx) Social History Tobacco Use Types Packs/Day Years Used Date Smoking Tobacco: Never Assessed Sex and Gender Information Value Date Recorded Sex Assigned at Not on file 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
--- OUTSIDE RECORDS SUMMARY | 2025-02-22 16:55 | XMS_ITS | Clinical Summary ---
Author Organization [facility] Address [address] [place] [address] Phone Care Team Providers Care Library Circulation Clerk Name Role Phone Unavailable Primary Care Provider Unavailabl e Allergies No known active allergies Medications atorvastatin (LIPITOR) 20 mg tablet atorvastatin 20 mg tablet Active apixaban (ELIQUIS) 5 mg tablet Take 5 mg by mouth daily. Active famotidine (PEPCID) 40 mg tablet Take 40 mg by mouth daily. Active ferrous sulfate 325 mg (65 mg iron) tablet Take 325 mg by mouth daily. Active folic acid (FOLVITE) 1 mg tablet Take 1 mg by mouth daily. Active pregabalin (LYRICA) 100 mg Capsule Take 100 mg by mouth 3 times daily. Active insulin lispro (HumaLOG) 100 unit/mL pen syringe Inject 5 Units by subcutaneous injection 3 times daily with meals. 15 mL 3 Active insulin glargine-yfgn 100 unit/mL pen syringe Inject 5 Units by subcutaneous injection daily at bedtime. 15 mL 3 Active insulin lispro (HumaLOG) 100 unit/mL pen syringe Inject 0-9 Units by subcutaneous injection 3 times daily with meals. 15 mL 3 Active metoprolol succinate (TOPROL XL) 100 mg Extended Release 24 hour tablet Take 1 Tablet (100 mg) by mouth daily. 30 Tablet 3 Active predniSONE (DELTASONE) 20 mg tablet Take 3 Tablets (60 mg) by mouth daily. 30 Tablet 3 Active Active Problems Problem Noted Date Diagnosed Date Hypoxia 11/19/2022 Petechiae 11/19/2022 Aortic valve vegetation 11/18/2022 Aortic valve stenosis 11/16/2022 S/P aortic valve replacement with bioprosthetic valve 11/16/2022 Aortic root dilation 11/16/2022 Congestive heart failure 11/15/2022 Stenosis of prosthetic aortic valve 11/15/2022 Aneurysm of ascending aorta without rupture 10/29 ARUNA (acute kidney injury) 11/13/2022 Hematuria 11/13/2022 Proteinuria 11/13/2022 Vasculitis 11/13/2022 CHF, acute on chronic 11/12/2022 Renal insufficiency 11/12/2022 Hyponatremia 11/12/2022 Hyperkalemia 11/12/2022 Palpable purpura 11/12/2022 AF (atrial fibrillation) 11/12/2022 Gout 11/12/2022 DM (diabetes mellitus), type 2 11/12/2022 Family History Medical History Relation Name Comments Cancer Brother leukemia Heart Disease Mother Relation Name Status Comments Brother Mother Social History Tobacco Use Types Packs/Day Years Used Date Smoking Tobacco: Never Tobacco Cessation:Counseling Given: Not Answered Alcohol Use Standard Drinks/Week Comments Yes 0 (1 standard drink = 0.6 oz pur e alcohol) Socially drinks beer Feeling Safe Answer Date Recorded Are you in a relationship wi th someone who hurts you emotionally and/or physically? 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 Gender Identity Not on file Sexual Orientation Not on file Last Filed Vital Signs Vital Sign Reading Time Taken Comments Blood Pressure 145/82 11/20/2022 3:46 PM CDT Pulse 70 11/20/2022 3:46 PM CDT Temperature 37.1 C (98.7 F) 11/20/2022 3:46 PM CDT Respiratory Rate 20 11/19/2022 8:10 PM CDT Oxygen Saturation 99% 11/20/2022 3:46 PM CDT Inhaled Oxygen Concentration - - Weight 113.4 kg (250 lb 1.6 oz) 11/20/2022 4:10 AM CDT Height 175.3 cm (5' 9 ) 11/13/2022 2:22 AM CDT Body Mass Index 36.93 11/13/2022 2:22 AM CDT Plan of Treatment Health Maintenance Due Date Last Done Comments DIABETES ANNUAL FOOT EXAM 1975 DIABETES ANNUAL RETINAL EXAM 1975 DIABETES MICROALBUMIN ANNUAL SCREEN 1975 LDL CHOLESTEROL ANNUAL 1975 DTAP/TDAP/TD VACCINES (1 - Tdap) 1976 PNEUMOCOCCAL VACCINE 50+ YEA RS (1 of 2 - PCV) 1976 COLORECTAL SCREENING 2002 Colorectal Cancer Screening 2002 FIT-DNA Q 3 years 2002 FIT/FOBT Q 1 year 2002 Flex Sig/CT Colonography Q 5 years 2002 ZOSTER VACCINE (1 of 2) 2007 RSV VACCINE (60+ or ) (1 - Risk 60-74 years 1-dose series) 2017 DIABETES HBA1C Q 6 MONTHS 05/24/2023 11/21/2022, INFLUENZA VACCINE (#1) 2024 Medical Devices Implanted Type Area Biodiesel Operations Manager Device Identifier Shelf Expiration Date Model / Serial / Lot [place] [employer] Lead [id number] Lead [employer] [id number] / [id number] / [place] [employer] Lead [id number] Lead [employer] [id number] / [id number] / [place] [employer] L131 Pacemaker Pacemaker [employer] [id number] / [id number] / Description:Dr. Tyler gilman [phone], fax [phone] Procedures Procedure Name Priority Date/Time Associated Diagnosis Comments HEMOGLOBIN A1C Routine 11/12/2022 6:58 PM CDT from Last 3 Months or Most Recently Relevant to Health Maintenance Results * HEMOGLOBIN A1C (11/12/2022 6:58 PM CDT) HEMOGLOBIN A1C 5.4 <=5.6 % 11/14/2022 9:32 AM CDT [facility] EST. AVG GLUCOSE, A1C 108 mg/dL 11/14/2022 9:32 AM CDT [facility] Blood Venipuncture / Unknown 11/12/2022 6:58 PM CDT 11/12/2022 7:02 PM CDT Narrative [facility] - 11/14/2022 9:32 AM CDT HGB A1C INTERPRETATION NORMAL: <5.7% PRE-DIABETES: 5.7 - 6.4% DIABETES: 6.5% OR GREATER Nyla Sanchez DO CHEMISTRY ORDERABLES Final Resu lt [facility] CLIA # [id number] [address] [facility] [place] [address] from Last 3 Months or Most Recently Relevant to Health Maintenance Insurance [place]ICA[place] [address] [place] [place] [address] DUAL COMPLETE PPO DSNP [facility] [id number] Advance Directives For more information, please contact: [phone] * Full Code (Latest Code Status on File) Date Activated Date Inactivated Comments 11/13/2022 4:09 PM 11/20/2022 10:47 PM
--- OUTSIDE RECORDS SUMMARY | 2025-02-22 16:55 | XMS_ITS | Patient Health Record ---
Author Organization [facility] Address [address] [place], [place] [id number] Care Team Providers Care Director Video Name Role Phone LOOM FIXER SUPERVISOR, Lora Primary Care Provider Merritt Sung MD Unavailable [phone] Marianne Del Rosario Unavailable Unavailable Miladis Gill Unavailable [phone] Allergies Allergen (clinical drug ingredient) Drug/Non Drug Allergy documented on EMR Reaction Allergy Type Onset Date Status fentanyl fentaNYL throat itch Drug Allergy Activ e lisinopril lisinopril Unknown Drug Allergy Activ e Results Component Value Reference Range Notes Urine tox screen / MS if ind icated Reviewed date:10/10/2024 01:12:51 PM Interpretation:Consistent Performing Lab: Notes/Report: Consistent Reason For Referral Reason Spinal stenosis, lum bar region without neurogenic claudication; Other intervertebral disc degeneration, lumbosacral region Diagnosis 1 Spinal stenosis, lum bar region without neurogenic claudication (M48.061) Diagnosis 2 Other intervertebral disc degeneration, lumbosacral region with discogenic back pain only (M51.370) Referring Provider First Name Lora Referring Provider Last Name Referring Provider Speciality Nurse Prac titioner Referred Organization [email or web address] Referred Provider Merritt Lloyd Referred Address [address] [place], [id number], Referred Provider Specialty Pain Managem ent General Notes Livier Kim 02/2024 12:37:33 PM >Sent for insurance verification.Zoya Allison M 07/11/2024 02:40:33 PM > Active. No copayJulio Danielle 07/13/2024 02:43:10 PM >Left message to schedule.Julio Danielle 08/03/2024 11:27:37 AM >Mailed letter. Referral Priority Routine Reason Shoulder pain, chron ic, unspecified shoulder Diagnosis 1 Pain in unspecified shoulder (M25.519) Referring Provider First Name Marianne Referring Provider Last Name Carleen Referring Provider Speciality Nurse Devan harris Referred Organization [facility] Referred Provider Merritt Lloyd Referred Address [address] [facility],[place], [place],[id number], Referred Provider Specialty Pain Managem ent General Notes Livier Kim 04:21:11 PM >Sent for insurance verification. Second referral., Hilda Kenny 07/26/2024 05:43:24 PM >ACTIVE. NO COPAY., Livier Kim 07/13/2024 02:43:10 PM >Left message to schedule., Livier Kim 08/03/2024 11:27:37 AM >Mailed letter. Referral Priority Routine Reason Evaluation for possi ble interventional spine treatment Diagnosis 1 Spondylosis without myelopathy or radiculopathy, lumbar region (M47.816) Referral Organization [facility] Referring Provider First Name Merritt Referring Provider Last Name Prema Referring Provider Speciality Pain Manag ement Referred Provider Marco Ortez Referred Provider Specialty Pain Managem ent General Notes Livier Kim 03:01:24 PM >Waiting on last visit record to be signed off on., Livier Kim 01/18/2025 10:58:11 AM >Faxed today. Referral Priority Routine Medications Medication SIG (Take, Route, Frequency, Duration) Notes Start Date End Date Status aspirin 81 mg 1 tab(s) orally once a day Active tamsulosin 0.4 mg 1 cap(s) orally once a day Active atorvastatin 40 mg 1 tab(s) orally once a day Active tiZANidine 4 mg TAKE ONE TABLET BY M OUTH EVERY 8 HOURS NEEDED FOR muscle spasticity for 30 Days Active Eliquis 5 mg 1 tab(s) orally 2 ti mes a day Active Entresto 97 mg-103 mg 1 tab(s) orally 2 times a day Active Vitamin D3 125 mcg 1 cap(s) orally once a day Active famotidine 40 mg 1 tab(s) orally 2 ti mes a day Active zinc gluconate Activ e Farxiga 10 mg 1 tab(s) orally once a day Active fenofibrate 160 mg 1 tab(s) orally once a day Active furosemide 20 mg 1 tab(s) orally once a day Active levETIRAcetam 500 mg 1 tab(s) orally 2 t imes a day Active acetaminophen-hydrocodone 325 mg-10 mg 1/2 - 1 tab orally Q4-6H prn pain (max 3 1/2 per day; hold within 4H of planned sleep) for 28 days 11/10/2024 Active metOLazone 2.5 mg 1 tab(s) orally once a day Active allopurinol 100 mg 1/2 tab(s) orally ev palomo other day Active rifabutin 150 mg 2 cap(s) orally once a day Active Vitamin B-12 1000 mcg 1 tab(s) orally on ce a day Active Social History Tobacco Use: Social History Observation Description Date Details (start date - stop date) Never Smoker NA - NA Tobacco use: Question Answer Notes : nonsmoker AUDIT-C (Standard) Question Answer Notes Did you have a drink contain ing alcohol in the past year? Yes How often did you have a dri nk containing alcohol in the past year? 2 to 4 times a month (2 points) How many drinks did you have on a typical day when you were drinking in the past year? 5 or 6 drinks (2 points) How often did you have six o r more drinks on one occasion in the past year? Less than monthly (1 point) Points 5 Interpretation Positive Problems Problem Type SNOMED Code ICD Code Onset Dates Problem Status W/U Status Risk Notes Problem Lumbosacral spondylosis without myelopathy (41211026) Spondylosis without myelopathy or radiculopathy, lumbar region (M47.816) Active confirmed Problem High risk drug monitoring status (806649826) jail (current) use of opiate analgesic (Z79.891) Active confirmed Problem Anxiety disorder (577204279) Other specified anxiety disorders (F41.8) Active confirmed Problem Obstructive sleep apnea syndrome (disorder) (79344971) Obstructive sleep apnea (adult) (pediatric) (G47.33) Active confirmed Problem Chronic pain (91044788) Other chronic pain (G89.29) Active confirmed Problem Shoulder joint pain (609804615) Pain in unspecified shoulder (M25.519) Active confirmed Problem Long-term current use of drug therapy (484752454) Other fci (current) drug therapy (Z79.899) Active confirmed Problem Spinal stenosis of lumbar region (14392321) Spinal stenosis, lumbar region without neurogenic claudication (M48.061) Active confirmed Problem Vertebrogenic low back pain (3846803254869467 01) Vertebrogenic low back pain (M54.51) Active confirmed Problem Degeneration of lumbar intervertebral disc (61382154) Other intervertebral disc degeneration, lumbosacral region with discogenic back pain only (M51.370) Active confirmed Vital Signs Temperature 97.2 degrees Fahrenheit 01/12/2025 Blood pressure diastolic 59 mm Hg 01/12/2025 Oximetry 94 % 01/12/2025 Height 69 in 01/12/2025 Blood pressure systolic 87 mm Hg 01/12/2025 Weight 223.4 lbs 01/12/2025 BMI 32.99 kg/m2 01/12/2025 Encounters Encounter Location Date Provider Diagnosis [facility] [address] [place], [place] [id number] 10/10/2024 Miladis Dee Vertebrogenic low ba ck pain M54.51 ; Spondylosis without myelopathy or radiculopathy, lumbar region M47.816 ; Obstructive sleep apnea (adult) (pediatric) G47.33 and Other fci (current) drug therapy Z79.899 [facility] [address] [place], [place] [id number] 10/20/2024 Merritt Lloyd Spondylosis without myelopathy or radiculopathy, lumbar region M47.816 ; Other specified anxiety disorders F41.8 ; Vertebrogenic low back pain M54.51 ; Other chronic pain G89.29 ; Obstructive sleep apnea (adult) (pediatric) G47.33 and Other termite exterminator (current) drug therapy Z79.899 [facility] [address] [place], [place] [id number] 11/10/2024 Merritt Lloyd Spondylosis without myelopathy or radiculopathy, lumbar region M47.816 ; Other specified anxiety disorders F41.8 ; Vertebrogenic low back pain M54.51 ; Other chronic pain G89.29 ; Obstructive sleep apnea (adult) (pediatric) G47.33 and jail (current) use of opiate analgesic Z79.891 [facility] [address] [place] [address] 12/05/2024 Merritt Lloyd Spondylosis without myelopathy or radiculopathy, lumbar region M47.816 and Other specified anxiety disorders F41.8 [facility] [address] [place], [place] [id number] 01/12/2025 Merritt Lloyd Spondylosis without myelopathy or radiculopathy, lumbar region M47.816 ; Other chronic pain G89.29 and Vertebrogenic low back pain M54.51 [facility] [address] [place], [place] [id number] 11/22/2024 Merritt Lloyd [facility] [address] [place] [id number] 12/06/2024 Merritt Janesharsha Assessments Encounter Date Diagnosis (ICD Code) Assessment Notes Treatment Notes Treatment Clinical Notes Section Notes 10/20/2024 Spondylosis without myelopathy or radiculopathy, lumbar region (ICD-10 - M47.816) Noted primarily at the L4-L5 and L5-S1 levels as indicated on patient's 09/23/[address] report, to include facet arthropathy and severe disc disease at those levels. Plan bilateral L3 medial branch, bilateral L4 medial branch, bilateral L5 dorsal ramus diagnostic blocks. Consider repeat / confirmatory blocks and possible RFA, pending outcome of diagnostic blocks. Risks, benefits, and alternatives reviewed with patient. Questions answered to the patient's reported satisfaction. Preparation for procedure reviewed with patient; printed instructions given. 10/20/2024 Other specified anxiety disorders (ICD-10 - F41.8) Plan moderate IV sedation as needed with midazolam and / or fentanyl. 01/12/2025 Spondylosis without myelopathy or radiculopathy, lumbar region (ICD-10 - M47.816) Initial bilateral L3 medial branch, bilateral L4 medial branch, bilateral L5 dorsal ramus diagnostic blocks completed with a 100% reduction in pain noted. Recommend referral to another pain clinic to continue interventional treatment. Patient requests a referral to [facility] in [facility]. [place]. 01/12/2025 Other chronic pain (ICD-10 - G89.29) Patient reports that taking his pain medication has helped him to stay more active. Due to patient's report of someone taking his pain medication approximately 2 weeks ago, this office will not renew patient's oral opioid medication. Patient denies any symptoms of withdrawal at this time. 12/05/2024 Spondylosis without myelopathy or radiculopathy, lumbar region (ICD-10 - M47.816) Plan lumbar diagnostic blocks: bilateral L3, L4 medial branch and bilateral L5 dorsal ramus. 10/10/2024 Vertebrogenic low back pain (ICD-10 - M54.51) Patient to consider treatment options pending evaluation by Dr. Lloyd. 11/10/2024 Spondylosis without myelopathy or radiculopathy, lumbar region (ICD-10 - M47.816) Noted primarily at the L4-L5 and L5-S1 levels as indicated on patient's 09/23/[address] report, to include facet arthropathy and severe disc disease at those levels. Proceed with bilateral L3 medial branch, bilateral L4 medial branch, bilateral L5 dorsal ramus diagnostic blocks as discussed at last visit. Consider repeat / confirmatory blocks and possible RFA, pending outcome of diagnostic blocks. Risks, benefits, and alternatives reviewed with patient. Questions answered to the patient's reported satisfaction. Preparation for procedure reviewed with patient; printed instructions declined. 10/10/2024 Spondylosis without myelopathy or radiculopathy, lumbar region (ICD-10 - M47.816) Noted primarily at the L4-L5 and L5-S1 levels as indicated on patient's 09/23/[address] report. 11/10/2024 Other specified anxiety disorders (ICD-10 - F41.8) Plan moderate IV sedation as needed with midazolam and / or fentanyl. 10/10/2024 Obstructive sleep apnea (adult) (pediatric) (ICD-10 - G47.33) Patient with history of OSAS, however, he was not able to tolerate use of a CPAP device. 12/05/2024 Other specified anxiety disorders (ICD-10 - F41.8) Plan moderate IV sedation with midazolam. 01/12/2025 Vertebrogenic low back pain (ICD-10 - M54.51) Chronic axial lower lumbar spine pain. 10/20/2024 Vertebrogenic low back pain (ICD-10 - M54.51) Chronic axial lower lumbar spine pain. 11/10/2024 Vertebrogenic low back pain (ICD-10 - M54.51) Chronic axial lower lumbar spine pain. 11/10/2024 Other chronic pain (ICD-10 - G89.29) Patient reports that taking his pain medication helped a lot with his symptoms. He felt that most days he could use a little more . Plan to continue oral opioid medication management with a slight quantity titration. 10/20/2024 Other chronic pain (ICD-10 - G89.29) Patient with history of good benefit from prior opioid therapy before diagnosis of severe sleep apnea was made. Plan to resume opioid therapy for daytime functional ability improvement and to strictly hold opioid therapy within four hours of planned sleep for safety concerns in regard to the untreated severe sleep apnea. 10/10/2024 Other termite exterminator (current) drug therapy (ICD-10 - Z79.899) Patient was given a copy of their Treatment Agreement; signed on 10/04/242022 opioid (OUD) risk tool score = 1 This places the patient in the low risk category. Plan urine toxicology screen today in anticipation of possibly starting opioid therapy at future visit as well as to assess for any prescribed, unprescribed, and / or illicit controlled substance(s). 11/10/2024 Obstructive sleep apnea (adult) (pediatric) (ICD-10 - G47.33) History of severe sleep apnea with nocturnal hypoxemia as per prior sleep study report. Patient reports that his PCP is scheduling him for an updated sleep study. Plan to restrict opioid usage in relation to sleep for safety concerns: patient has verbalized understanding to hold short-acting opioids within four hours of planned sleep. 10/20/2024 Obstructive sleep apnea (adult) (pediatric) (ICD-10 - G47.33) History of severe sleep apnea with nocturnal hypoxemia as per prior sleep study report. Risks of patient's condition discussed with patient to include worsened CHF and . Consider oximetry study and possible nocturnal supplemental oxygen therapy. Patient with history of aforementioned severe sleep apnea, however, he was not able to tolerate use of a CPAP / BiPAP device. Patient is likely too obese to be a candidate for an Inspire device trial. Recommended weight loss and then possible ENT referrral for interventional treatment with Inspire device trial (as well as for possible formal surgical treatment). Plan to restrict opioid usage in relation to sleep for safety concerns: patient has verbalized understanding to hold short-acting opioids within four hours of planned sleep. Patient has been counseled on the risks of sleep apnea (severe, with nocturnal hypoxemia), with or without opioid and / or other sedative usage, and the patient verbalized understanding and acceptance of the increased risk (worsened sleep apnea, worsened nocturnal hypoxemia, respiratory depression, ) with opioid and / or sedative substance usage. Patient has been counseled that synergistic risk occurs with concomitant opioid and sedative usage. Patient has been counseled to hold opioid and / or sedative substances prior to planned sleep or dangerous activities and patient verbalized understanding that noncompliance would be at patient's increased risk. 10/20/2024 Other termite exterminator (current) drug therapy (ICD-10 - Z79.899) Patient has received the Opioid Analgesic [facility] Patient Counseling Guide. Patient has had opportunity to read the Guide and ask questions pertaining to the Guide. Patient has been advised on 10/20/24 that any suspected patient misuse, abuse, or diversion of controlled substances (i.e. opioids/narcotics/ pain killers) WILL result in dissolution of treatment from this clinic. Patients adhering to the concepts contained within the patient's Treatment Agreement will be protected from such termination of care. Patient signed an opioid consent form on 10/20/24. Patient has been given a copy of the Treatment Agreement; signed on 10/04/24. 2022 opioid (OUD) risk tool score = 1 This places the patient in the low risk category. 11/10/2024 manager terminal (current) use of opiate analgesic (ICD-10 - Z79.891) Patient has a total daily MED of 30. This places the [facility] in the [facility] low risk category for total daily opioid usage. Patient declines offer of a Narcan nasal spray prescription. 2022 opioid (OUD) risk tool score = 1 This places the patient in the low risk category. 11/10/2024 Other The service was provided by PACHECO Olivarez, as part of the ongoing care plan established by Merritt Lloyd MD, who was present in the office for direct supervision during the encounter. 10/20/2024 Other 01/12/2025 Other The service was provided by PACHECO Olivarez, as part of the ongoing care plan established by Merritt Lloyd MD, who was present in the office for direct supervision during the encounter. Patient was provided with a letter at today's visit informing patient that this clinic is closing due to Dr. Tompson's skilled nursing; see scanned document. 10/10/2024 Other Case reviewed a nd treatment plan approved by Dr. Lloyd. Plan Of Treatment No Information Insurance Providers Payer Name Payer Address Payer Phone Subscriber Number Group Number Insured Name Patient Relationship to Insured Coverage Start Date Coverage End Date [employer] [address] [place] [address] [id number] Pawan Marcum Self - patient is the insured [place] [address] [place] [id number] Pawan Marcum Self - patient is the insured Medical (General) History Medical History History ICD Code Chronic pain Low back pain Lumbar spondylosis and severe lower lumb ar disc disease Shoulder pain, chronic Diabetes, type 2 Congestive heart failure Aortic aneurysm Seizures Sleep apnea, severe, with no cturnal hypoxemia (history of inablility to tolerate BiPAP device use) Obesity, mild Surgical History Surgery Date(Month/Year) Aortic valve replacement, pe rformed at [facility] by Dr. Fitzpatrick, 2015 Hospitalization History Reason Date(Month/Year) Fluid retention, treated at [facility] in [place], [place]
--- OUTSIDE RECORDS SUMMARY | 2025-02-22 16:55 | XMS_ITS | Data Portability ---
Author Organization [facility] Address [address] [place], [place] [address] Assessment No assessment recorded. Plan of Treatment Reminders Order Date Submit Date Provider Last Modified By Organization Details Last Modified Time Details Appointments None recorded. Lab None recorded. Referral None recorded. Procedures pacemaker check (PROC) 2018 [email or web address] Not available 9 09:15:46 Surgeries None recorded. Imaging US, echocardio gram, transthora cic, complete, w/ color flow 2018 cmourer [facility], [address] [place] [address], [phone], 9 13:11:10 Medication Orders nystatin 100,000 unit/gram topical cream 2018 INTERFACE [facility], [address] [place] [address], [id number], 9 12:12:51 Patient TargetsNo targets recorded. Patient Instructions Encounter Date Encounter Id Patient Instructions Last Modified By Organization Details Last Modified Time 09/28/2018 [id number] atrial fibrillation: care instructions Not available 09/28/2018 11:51:28 aortic valve stenosis: care instructions Not available 09/28/2018 11:51:28 Discussed signs and symptoms of heart failure exacerbation: increased shortness of breath with exertion worsening shortness of breath when laying flat waking up while sleeping feeling short of breath worsening swelling in feet, legs, and/or abdomen increased weight gain of greater than 3 pounds overnight or 5 pounds in one week decreased appetite a dry hacking cough Not available 09/28/2018 15:17:24 Discussed heart failure s/s, fluid and sodium restriction, medication therapy, and activity Not available 09/28/2018 15:17:41 Reason for Referral None Reported. Results Created Date Observation Date Name Description Value Unit Range Abnormal Flag Note LastModifiedBy Organization Detail LastModifiedTime 09/29/19 19 09/28/2018 US, echoc ardio gram, trans thora cic, compl ete, w/col or flow [facility] [address] [facility] [place] [address] Radiol ogy Report Patien t: ERIS GARVIN Comple mary anne: [id number] MR #: [id number] /AG E/SEX: 1954 / 63 / M Room/B ed: Locati on: DIAG CL Access ion: [id number] Exam: Echo 2D/M Mode Reason : Orderi ng Provid er: Jhon Mccall MATERIAL CONTROL SUPERVISOR Attend ing Provid er: Barby Ro MD CC: Lala wong MD, [facility] et; Jhon Mccall Report Number :[id number] TRANST HORACI C ECHOCA RDIOGR AM REPORT Sonogr apher: SC RDCS RDMS RVT Indica tions: Diagno sis: Sympto ms; Sonogr apher Commen ts: QUANTI TATIVE DATA SUMMAR Y: 2D MEASUR EMENTS : Left Ventri pepito: Data Normal IVSd: 1.25 cm (0.7-1 .1) LVPWd: 1.30 cm (0.7-1 .1) LVIDd: 5.78 cm (3.4-5 .7) LVIDs: 4.83 cm LV EF: 31.3 % (>50%) Right Ventri pepito: Data Normal RVd (2D): 3.28 cm Aorta/ LA: Data Normal Aortic Root: 6.05 cm (2.4-3 .7) AoV Cusp Exc: 1.40 cm (1.5-2 .6) Left Atrium : 5.20 cm (1.9-4 .0) Aorta/ LA: Data Normal AoV Cusp Exc: 1.40 cm (1.5-2 .6) LV DIASTO LIC FUNCTI ON: MV Peak E: 0.77 m/s E/e' Ratio: 7.70 MITRAL VALVE: MV Mean Gradie nt: 2.0 mmHg MV Press 1/2-Ti me: 48.00 msec MV Area, by P1/2T: 4.58 cm? AORTIC VALVE: AoV Max Kenan: 1.85 m/s AoV Peak P.7 mmHg AoV Mean P.0 mmHg Aortic Insuff icienc y: AI Half-t augustin: 459 msec AI Decel Rate: 1.71 m/s? TRICUS PID VALVE/ RVSP: Peak TR Kenan: 3.0 m/s RA Press: 10 mmHg RVSP/P ASP: 46.5 mmHg PULMON IC VALVE: PV Max Kenan: 0.8 m/s PHYSIC SHONDA INTERP RETATI ON: Left Ventri pepito: The left ventri cular cavity size is mildly increa sed. LV septal wall thickn ess was mildly increa sed. Ventri cular wall thickn ess is mildly increa sed. Global LV systol ic functi on was modera tely to severe ly decrea sed. Left ventri cular ejecti on fracti on, by visual estima tion, is 25 to 30%. Apicos eptal dyskin esis is noted. Spectr al Dopple r shows normal patter n of LV diasto lic fillin g. Right Ventri pepito: The right ventri cular size is mildly enlarg ed. RV wall thickn ess is normal . Left Atrium : The left atrium is modera tely dilate d. Right Atrium : The right atrium is mildly dilate d. Perica rdium: There is no eviden ce of perica rdial effusi on. Mitral Valve: There is mild thicke florentin of the anteri or and prop worker ior mitral valve leafle ts. Mitral leafle t mobili ty is normal . No eviden ce of mitral valve stenos is. Mean pressu re gradie nt is 2.0 m mHg. Modera te mitral valve regurg itatio n. Tricus pid Valve: Is normal in struct ure. Mild-m oderat e tricus pid regurg itatio n is presen t. The tricus pid regurg itant veloci ty is 3.02 m/s, and with an assume d right atrial pressu re of 10 mmHg, the estima mary anne right ventri cular systol ic pressu re is modera tely elevat ed at 46.5 mmHg. Aortic Valve: The aortic valve is a normal ly functi oning biopro stheti c valve. Trivia l Aortic valve insuff icienc y. Pulmon ic Valve: Mild pulmon rob valve regurg itatio n. No eviden ce of valvul ar pulmon ic stenos is. Aorta: The aortic root is dilate d at 6.0 cm. The proxim al part of the ascend ing aorta is enlarg ed at approx . 6.4 cm. Summar y: 1. Left ventri cular ejecti on fracti on, by visual estima tion, is 25 to 30%. 2. Modera tely to severe ly decrea sed global left ventri cular systol ic functi on. 3. Apicos eptal dyskin esis is noted. 4. Mild concen tric left ventri cular hypert rophy. 5. Mildly enlarg ed right ventri pepito. 6. Biatri al enlarg ement. 7. Modera te mitral valve regurg itatio n. 8. Mild-m oderat e tricus pid regurg itatio n. 9. Biopro stheti c aortic valve with normal functi on. 10. Modera tely elevat ed pulmon rob artery systol ic pressu re. 11. Dilate d aortic root and ascend ing aorta as noted above. 12. Note: As compar ed to prior echo dated 8, there has been mild declin e in LV systol ic functi on with LVEF now 25-30% (previ ously 30-35% .) Dilata tion of the aortic root and ascend ing aorta again noted (but improv ed since pt underw ent aortic valve replac ement and thorac ic aneury sm repair in 2017.) MARK wong Electr onical ly signed by MARK wong Signat ure Date/T augustin: 019/5: 46:02 AM Final End of Report Dictat ed by: Shae Ro MD 1127 Transc riptio nist: Vic wong, 1127 Signed by: Shae Ro MD [address] [facility] [address] [place], [address], 09/29/2018 10:33:02 10/01/19 19 09/28/2018 pacem nina progr ammin g, dual lead (PROC ) No observ ation record ed. BARCODE Not Available 2018 11:28:46 Result Notes None recorded. Problems Name Problem SNOMED Code Status Onset Date Resolution Date Notes Provider Name and Address Organization Details Recorded Time Heart murmur 92250071 Completed 201709/28/2018 Location : None Sev erity: Moderate Progres s: Stable A dded By: RING, LUDIVINA Add to Current Problems : NO Cathy Mccall, ERNIE [address] [place], [address] , [facility] 9 15:13:42 Atrial fibrilla tion 22429179 Active 2017 Location : None Sev erity: Moderate Progres s: Stable A dded By: NAVDEEP OLMEDO Add to Current Problems : YES Not Available [facility] 8 03:11:10 Chest pain 19505599 Completed 201711/14/2017 Location : None Sev erity: Moderate Progres s: Stable A dded By: RING, LUDIVINA Add to Current Problems : NO Not Available [facility] 8 03:11:10 Benign essentia l hyperten jess 8138159 Active 2017 Location : None Sev erity: Moderate Progres s: Stable A dded By: RING, LUDIVINA Add to Current Problems : NO Not Available [facility] 8 03:11:10 Dyspnea 442028326 Completed 201711/14/2017 Location : None Sev erity: Moderate Progres s: Stable A dded By: RING, LUDIVINA Add to Current Problems : NO Not Available [facility] 8 03:11:10 Dyspnea 084906810 Completed 201702/15/2018 Location : None Sev erity: Moderate Progres s: Stable A dded By: CATHY MCCALL dd to Current Problems : NO Not Available [facility] 8 03:11:10 Cardiac pacemake r in situ 018369089 Active 2017 Location : None Sev erity: Moderate Progres s: Stable A dded By: SHERINE LOPES dd to Current Problems : YES Not Available [facility] 8 03:11:10 Heart failure 83878522 Completed 201709/28/2018 Location : None Sev erity: Moderate Progres s: Stable A dded By: CATHY MCCALL dd to Current Problems : NO Cathy Mccall, ERNIE [address] [place], [address] , [facility] 9 15:13:38 Conducti on disorder of the heart 98064178 Active 2017 Location : None Sev erity: Moderate Progres s: Stable A dded By: Valery Alexander Add to Current Problems : YES Not Available [facility] 8 03:11:10 Aneurysm of thoracic aorta 311255729 Completed 201709/28/2018 Location : None Sev erity: Moderate Progres s: Stable A dded By: Valery Alexander Add to Current Problems : NO Cathy Mccall APRN [address] [place], [address] , [facility] 9 15:13:35 Mitral and aortic stenosis 367598109 Completed 201709/28/2018 Location : None Sev erity: Moderate Progres s: Stable A dded By: NAVDEEP OLMEDO Add to Current Problems : YES Cathy Mccall, MATERIAL CONTROL SUPERVISOR [address] [place], [address] , [facility] 9 15:13:22 Diseases of mitral and aortic valves 199232366 Completed 201709/28/2018 ICD10 Descript ion: Rheumati c disorder s of both mitral and aortic valves Cathy Mccall, MATERIAL CONTROL SUPERVISOR [address] [place], [address] , [facility] 9 15:13:19 Thoracic aortic aneurysm without rupture 06433943 Active 2017 ICD10 Descript ion: Thoracic aortic aneurysm , without rupture Not Available [facility] 8 04:49:30 Hyperten sive disorder 92519352 Completed 201709/28/2018 ICD10 Descript ion: Essentia l (primary ) hyperten jess Cathy Mccall, MATERIAL CONTROL SUPERVISOR [address] [place], [address] , [facility] 9 15:13:25 Aneurysm of thoracic aorta 073127818 Completed 201709/28/2018 ICD10 Descript ion: Thoracic aortic aneurysm , without rupture Cathy Mccall, MATERIAL CONTROL SUPERVISOR [address] [place], [address] , [facility] 9 15:13:28 Chronic systolic heart failure 239984766 Active 2018 Cathy Mccall APRN [address] [place], [address] , [facility] 9 15:13:49 Maintena nce procedur e for cardiac pacemake r system Active 2018 Cathy Mccall APRN [address] [place], [address] , [facility] 9 15:13:52 Aortic valve stenosis 57888023 Active 2018 Cathy Mccall APRN [address] [place], [address] , [facility] 9 15:13:59 Mitral valve regurgit ation 35085754 Active 2018 Cathy Mccall APRN [address] [place], [address] , [facility] 9 15:14:21 Tricuspi d valve regurgit ation 746618755 Active 2018 Cathy Mccall, MATERIAL CONTROL SUPERVISOR [address] [place], [address] , [facility] 9 15:15:12 Type 2 diabetes mellitus 30833104 Active 2018 Cathy Mccall, MATERIAL CONTROL SUPERVISOR [address] [place], [address] , [facility] 9 15:17:49 Problem Notes None recorded. Procedures Surgical History Date Name Laterality Status Provider Name and Address Organization Details Recorded Time 7 Pacemaker/Defib rillator completed Cathy Mccall MATERIAL CONTROL SUPERVISOR [address] [place], [address], [facility] 09/28/2018 15:15:49 extraction of cataract completed [facility] 09/21/2018 17:25:52 Aortic Valve Replacement completed [facility] 09/21/2018 17:26:09 repair of thoracic aortic aneurysm completed [facility] 09/21/2018 17:26:25 Imaging Results None recorded. Procedure Notes None recorded. Medical Equipment Implant [employer] Issuing Agency Serial Number Lot Number Status Provider Name and Address Organization Details Recorded Time [employer] dual chamber FDA Y [facility] Jayjaycarl kelly, [facility] 09/21/2018 17:43:53 Allergies No known drug allergies Medications Name Sig Start Date Stop Date Status Note LastModified by Organization Details LastModified Time atorvastati n 20 mg tablet Take 1 tablet every day by oral route. active Not Available Not Available No t Available Klor-Con 20 mEq tablet,exte nded release Take 1 tablet every day by oral route. active Not Available Not Available No t Available metformin 850 mg tablet Take 1 tablet every day by oral route. active Not Available Not Available No t Available potassium chloride ER 10 mEq tablet,exte nded release active Not Available Not Available Not Available chlorthalid one 25 mg tablet Take 2 tablets every day by oral route. active Not Available Not Available No t Available amlodipine 5 mg tablet active Not Available Not Available Not Available metformin 1,000 mg tablet Take 1 tablet twice a day by oral route. 09/28 completed Not Available Not Available Not Available nystatin 100,000 unit/gram topical cream APPLY TO THE AFFECTED AREA(S) BY TOPICAL ROUTE 2 TIMES PER DAY active Not Available Not Available No t Available ranitidine 150 mg tablet active Not Available Not Available Not Available metoprolol tartrate 50 mg tablet active Not Available Not Available No t Available ranitidine 150 mg capsule Take 1 capsule twice a day by oral route. 09/28 completed Not Available Not Available Not Available furosemide 20 mg tablet active Not Available Not Available Not Available gabapentin 100 mg capsule active Not Available Not Available Not Available losartan 100 mg tablet Take 1 tablet every day by oral route. active Not Available Not Available No t Available Levitra 20 mg tablet Take 1 tablet every day by oral route as needed. active Not Available Not Available No t Available duloxetine 20 mg capsule,del ayed release active Not Available Not Available Not Available aspirin 81 mg daily active Not Available Not Available No t Available metoprolol tartrate 50 mg bid active Not Available Not Available N ot Available omega-3 fatty acids 1000mg daily 09/28 completed Not Available Not Available Not Available amlodipine 5mg daily active Not Available Not Available Not Available cyclobenzap rine 10mg tid prn active Not Available Not Available No t Available Eliquis 5 mg tablet TAKE ONE TABLET BY MOUTH TWICE DAILY active Not Available Not Available No t Available Trulicity 0.75 mg/0.5 mL subcutaneou s pen injector Inject 0.5 mL every week by subcutane ous route. active Not Available Not Available No t Available Entresto 49 mg-51 mg tablet Take 1 tablet twice a day by oral route. active Not Available Not Available No t Available Vitals Date Recorded Body weight Respiratory rate Heart rate Oxygen saturation Oxygen saturation in Arterial blood by Pulse oximetry Systolic blood pressure Diastolic blood pressure Provider Name and Address Organization Details Last Updated DateTime 9 818841. 98 g 18 /min 81 /min 94 % 94 % 120 mm[Hg] 80 mm[Hg] Valente Harrison [facility] 9 11:29:17 Social History Question Answer Notes LastModified by Organizat ion Details LastModified Time Tobacco Smoking Status Never Smoker Valente kelly, [facility] 09/21/2018 17:26:32 What Was The Date Of Your Most Recent Tobacco Screening? 09/28/2018 Information n ot available 03/23/2019 Sex: Unknown Functional Status None recorded. Mental Status None recorded. Family History Relationship Description Onset Age of this Age Resolved Age Notes LastModified by Organization Details LastModified Time Unspecified Relation Coronary arterioscler osis cmourer Not available 2018 17:26:45 Unspecified Relation Hypertensive disorder cmourer Not available 2018 17:26:56 Medical History Condition Response Diabetes Y Aneurysm Y Congestive Heart Failure (CHF) Y Pacemaker Y Other Y Atrial Fibrillation Y Past Encounters Encounter ID Performer Location Encounter Start Date Encounter Closed Date Diagnosis/Indication Diagnosis SNOMED-CT Code Diagnosis ICD10 Code Diagnosis Note [id number] Mike Law [facility] [address] [place] [address] 09/28/2018 11:21:49 09/28/2018 12:20:27 [id number] Mike Law MD [facility] [address] [place] [address] 09/28/2018 11:23:02 09/28/2018 13:39:05 [id number] Cathy Mccall APRN [facility] [address] [place] [address] 09/28/2018 11:23:30 09/28/2018 12:07:17 Atrial fibrillation 18146526 I48.91 contineu metoprolol , eliquis Aortic valve stenosis 60 380624 I35.0 s/p repair, repeat echo today to reassess all valvular function Maintenanc e procedure for cardiac pacemaker system 130421396 Z45.010 Candidiasis of skin 4988 3006 B37.2 left groin Chronic sy stolic heart failure 891825959 I50.22 if no improvemen t in EF, consider starting him on entresto.F or now continue metoprolol , losartan, chlorthali doneLast echocardio gram done on 03-18-18um payam: 1. Left ventricula r ejection fraction, by visual estimation , is 30 to 35%. 2. Moderately decreased global left ventricula r systolic function. 3. Abnormal septal motion consistent with post-opera tive status. 4. Moderately increased left ventricula r septal thickness. 5. Mildly increased RV wall thickness. 6. Moderately dilated left atrium. 7. Mild thickening and calcificat ion of the anterior and posterior mitral valve leaflets. 8. Moderate mitral valve regurgitat ion. 9. Mild-moder ate tricuspid regurgitat ion. 10. Aortic valve is normally functionin g bioprosthe tic valve. 11. Aneurysm of the ascending aorta, now measuring 5.8cm since operative repair in 2017 (prox. aorta previously measured 6.8cm.) Health Concerns Section Related Observation LastModified by Organization Detai ls LastModified Time None Recorded Concern Status LastModified by Organization Details LastModified Time None Recorded Advance Directives Directive None Recorded Payers Insurance Date Sequence Insurance Name Policy Number Policy Ivey Covered Member ID Ivey Member ID Guarantor Name 05/17/2019 2 [place] [facility] Pawan Marcum [id number] Pawan Marcum 05/21/2019 1 [place] Pawan Marcum [id number] Pawan Marcum Notes Date Note Type Note Provider Name and Address Organization Details Recorded Time 9 text/html CHF F/UReported bypatient.Functional Capacity:NYHA III (dyspnea climbing < 1 flight stairs) Weight Changes:no change in weight Nocturnal Symptoms:no orthopnea; no PND Dietary Compliance:complies to and understands diet; complies with low sodium diet; complies to free water restrictions Diuretic Use:no change in standing dose Alleviating Factors:relieved with rest Aggravating Factors:worse with activity Symptoms Since Last Visit:improving Associated Symptoms:no chest discomfort;dyspnea;dyspnea on exertion;decline in exercise capacity;fatigue;edemaCare Management - Atrial FibrillationReported bypatient.Prognosis:expect ed outcome: no change; prognosis: good Duration:greater than 12 months (chronic) Medications:compliant with medication; rate control with beta antwan; anticoagulation for stroke prevention other (eliquis) Prior Imaging:echocardiogram; recent ECG Lifestyle Compliancecompliant with no tobacco use yes; compliant with no drug/alcohol abuse yes; compliant with low caffeine intake yesPacemaker CheckReported bypatient.Pacemaker Checktype of pacemaker biventricular chambers; 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[employer]); battery life okay; arrhythmias are controlled on current medications Associated Symptomsno weakness; no fatigue; no bleeding; no pus/drainage at site; no hematuria Device Interrogation:reviewed device interrogationValvular Heart DiseaseReported bypatient.Rheumatic Fever:none Heart Murmur:heart murmurs were treated with:(TAVR) Cardiac Valve Disease:cardiac valve disease Aortic Valve Diseaseno insufficiency;stenosis, valve replaced with:(TAVR) Tricupsid Valve Disease:insufficiency moderate Mitral Valve Disease:no stenosis;insufficiency, treated with:(moderate) Pulmonary Valve Diseaseno insufficiency Associated Symptoms:no chest discomfort; no decline in exercise capacity; no fatigue;shortness of breath;dyspnea on exertion;edema Follow Up:no change in symptoms; Valve disease remains stable Cathy Mccall, MATERIAL CONTROL SUPERVISOR [address] [place], [address], [facility] 09/28/2018 15:27:47
[2025-02-22] MEDS: iohexol 350 mg/mL 500 mL Btl (per mL) IV (17:09)
[2025-02-22 17:20] LABS: Basophils % 0.2 %; Hematocrit 39.4 % (37-53); Lymphocytes # 0.9 10^3/uL (0.8-4.8); Lymphocytes % 8.5 %; Mean Corpuscular HGB Conc 32.7 g/dL (30-55); Mean Corpuscular Hemoglobin 32.7 pg (27-33); Mean Platelet Volume 11.1 fL (7.4-10.4); Monocytes # 0.7 10^3/uL (0.2-0.9); Monocytes % 7.1 %; Neutrophils # 8.63 10^3/uL (1.8-7.7); Neutrophils % 83.7 %; Nucleated Red Blood Cells % 0 %; Platelet Count 92 10^3/cmm (157-399); Red Blood Count 3.94 10^6/uL (3.85-5.65); Red Cell Distribution Width 13.5 % (12.1-15.1); White Blood Count 10.31 10^3/uL (3.29-11.43)
[2025-02-22 17:20] LABS: Glucose Point of Care 153 mg/dL (70-110)
[2025-02-22] MEDS: LORazepam 1 MG/0.5 ML injection IVP (17:26)
[2025-02-22 17:37] LABS: INR 1.44 (0.8-1.2)
[2025-02-22 17:38] LABS: Partial Thromboplastin Time 29.9 SECONDS (23.9-36.7)
--- NOTE | 2025-02-22 17:41 | XRR_ITS ---
PROCEDURE INFORMATION: Exam: XR Chest Exam date and time: 02/22/2025 6:32 PM Age: 69 years old Clinical indication: Other: CVA TECHNIQUE: Imaging protocol: Radiologic exam of the chest. Views: 1 view. COMPARISON: CR XR chest 2V* [id number] 01/10/2025 1:56 PM FINDINGS: Tubes, catheters and devices: Aortic valve prosthesis is noted. Left subclavian transvenous atrioventricular pacemaker is in expected position. Lungs: There is moderate pulmonary venous distension. Patchy opacity at the left lung base could be artifactual from patient rotation to the left, but airspace opacity is not excluded. Pleural spaces: Left pleural effusion cannot be excluded. No pneumothorax on either side. Heart/Mediastinum: Moderate to severe cardiomegaly. Bones/joints: Age appropriate. XR/XR chest 1V portable [id number] IMPRESSION: Heart is enlarged and there is pulmonary venous distension suggesting left heart failure. Opacity at the left chest base could be airspace disease and/or pleural fluid.
[2025-02-22 17:42] LABS: Alanine Aminotransferase 15 U/L (0-41); Albumin Level 3.5 g/dL (3.5-5.2); Alkaline Phosphatase 32 U/L (40-130); Anion Gap 19.7 (5-19); Aspartate Amino Transferase 25 U/L (0-40); Blood Urea Nitrogen 77 mg/dL (8-23); Calcium 8.5 mg/dL (8.5-10.5); Carbon Dioxide 18 mmol/L (22-29); Chloride 93 mmol/L (98-107); Globulin 3.5 g/dL (1.3-4.6); Glomerular Filtration Rate 17.6 mL/min (90-130); Glucose 142 mg/dL (65-115); Osmolality Calculated 287 mOsm/kg (285-295); Potassium 4.7 mmol/L (3.5-5.1); Sodium 126 mmol/L (136-145); Total Bilirubin 1.4 mg/dL (0.15-1.2)
[2025-02-22] MEDS: acetaminophen 650 mg Supp PR (18:14)
[2025-02-22] MEDS: aspirin 300 mg Supp PR (18:14)
[2025-02-22 18:16] LABS: Bilirubin Urine Negative (Negative); Blood Urine 1+ (Negative); Glucose Urine UA 2+ (Normal); Ketones Urine Negative (Negative); Leukocyte Esterase Urine Negative (Negative); Nitrate Urine Negative (Negative); Protein Urine Negative (Negative); Specific Gravity, Urine 1.025 (1.005-1.030); Urine Appearance Clear (CLEAR); Urine Color Yellow (Yellow); Urobilinogen Urine 0.2 mg/dL (Negative)
[2025-02-22] MEDS: sodium chloride 0.9% 1,000 ML 999 ML IV ×2 (18:19→19:18)
[2025-02-22 18:21] LABS: Add Urine Microscopic? YES; Bacteria Urine None Seen /hpf; Hyaline Casts Urine 2.05 /lpf; Squamous Epithelial Cell Urine 0-5 /hpf (0-5); WBC Urine 0-5 /hpf (0-5)
[2025-02-22 18:23] LABS: Amphetamines Screen Urine Negative (Negative); Barbiturates Screen Urine Negative (Negative); Benzodiazepines Screen Urine Negative (Negative); Cocaine Screen Urine Negative (Negative); Opiate Screen Urine Negative (Negative); PCP Screen Urine Negative (Negative); THC Screen Urine Negative (Negative)
[2025-02-22 18:25] LABS: Add Urine Culture? No
[2025-02-22] MEDS: cefTRIAXone 1,000 mg SDV 1000 MG IVP (19:18)
[2025-02-22] MEDS: AZITHROMYCIN ADD-Vantage 500 MG in 0.9% NaCl ADD-Vantage 250 ML 250 MG IV (19:19)
[2025-02-22 19:23] LABS: NT Pro B Type Natriuretic Pept 9506 pg/mL (0-125)
[2025-02-22 19:34] LABS: Lactic Sepsis W/Reflex 1.8 mmol/L (0.5-2.2)
[2025-02-22] MEDS: HYDROcodone-acetaminophen 5-325 mg Tablet 1 TAB PO (20:10)
--- NOTE | 2025-02-22 20:40 | P.HP_ITS ---
Providers/Chief Complaint 2 Admitting Physician: Davon Torres MD Primary Care Provider: Lora Buchanan, PACHECO-Estella Chief Complaint: Stroke History of Present Illness Pawan Marcum is a 69 year old male was with his grand son working on mowing yards today and the mower needed new starter. Grandson came back noted patient was in the yard vomiting. His thought was that patient was overheated. He encouraged patient to drive back to his house but he went over to his and daughters house. is [place] [phone]. Patient was not feeling well so Lucia drove him back to his apartment. They are in the middle of a divorce and had been 15 years. In the room is also his 13-year-old daughter as well as his oldest daughter Anjali phone #[phone]. The patient did vomit and recently has had diarrhea but there is not been blood in the vomit or stool. Patient has known kidney disease from diabetes but denies kidney stones. He has history of aortic valve replacement around 2016 but did not require CABG. Patient reports dyspnea on exertion but not chest pain. Patient drinks 3-4 beers a day recently more since he and his are but still thought to be less than 6 pack a day does not use tobacco or weed. He wants full CODE STATUS as discussed today in the presence of his daughter Anjali and his 13-year-old daughter also in the room. He states his next of kin is still Anisha his . Today they thought he had left-sided neglect possible stroke he is already on Eliquis and CTA was negative so he was not a candidate for tPA. Notably he had sodium of 126 BUN 77 creatinine 3.5 up from baseline 2.2. He received 2 L of fluid and noted to have blood pressure 94/60 temperature 99.6. Labs white count 10.31 hematocrit 39 platelets 92. Sodium 126 CO2 18 potassium 4.7 glucose 142. Bilirubin 1.4. UA 11-20 white cells no bacteria squamous cells or white cells. Urine drug screen negative Review of Systems 2 Narrative: General no fevers chills has had fatigue and weakness today patient reports weight is stable Cardiovascular no chest pain at rest or with exertion he does have dyspnea on exertion Respiratory is currently short of breath but denies cough or production GI positive for nausea and diarrhea without blood history of kidney disease without kidney stones he denies dysuria Neuro some limb weakness today denies history of seizures he has had a stroke seen on CT scan that he was told was old but recently discovered around a year ago. Patient states he is anticoagulated on Eliquis but not sure why. Denies history of cancer Medications/Allergies Home Medications ?Medication ?Instructions ?Recorded ?Confirmed ?Last Taken ?Type diabetic shoes with inserts #1 ea 02/28/21 01/18/25 Rx Blood pressure cuff and machine #1 ea 06/27/222 5 08/12/22 Rx o2 at 3L per nasal cannula #1 ea 08/11/22 01/18/25 Rx nitroglycerin 0.3 mg sublingual 0.3 mg sublingual Q5M PRN chest 10/08/22 01/18/25 Unknown Rx tablet pain #30 tabs Diabetic shoes with inserts #1 ea 04/24/23 01/18/25 Un known Rx folic acid 1 mg tablet 1 mg PO DAILY #30 tabs 02/1701/18/25 03/13/24 Rx aspirin 81 mg tablet,delayed 81 mg PO DAILY 03/14/24 0 01/18/25 03/13/24 History release diclofenac sodium 1 % topical gel 2 g topical QID PRN JOINT PAIN 03/14/24 01/18/25 Unknown History (Voltaren Arthritis Pain) mecobalamin (vitamin B12) 1,000 1,000 mcg PO DAILY 01/18/25 Unknown History mcg disintegrating tablet,sublingual zinc sulfate 50 mg zinc (220 mg) 50 mg PO DAILY 01/18/25 03/13/24 History capsule miscellaneous medical supply 1 ea miscellaneous DAILY venous 03/27/24 01/18/25 Unknown Rx ulcer right leg #1 ea potassium chloride 20 mEq 20 meq PO DAILY #90 tabs 01/18/25 Unknown Rx tablet,extended release ferrous sulfate 325 mg (65 mg mg PO 04/06/24 01/18/25 Unknown History iron) tablet (FeroSul) sacubitril 97 mg-valsartan 103 mg 1 tab PO BID #180 ta bs 04/25/24 01/18/25 Unknown Rx tablet furosemide 20 mg tablet 20 mg PO DAILY EDEMA #90 tab s 05/09/24 01/18/25 Unknown Rx wheelchair #1 ea 06/02/24 01/18/25 Unkn own Rx albuterol sulfate 2.5 mg/3 mL 2.5 mg (3 mL) inhalation QID PRN 06/07/24 01/18/25 Unknown Rx (0.083 %) solution for nebulization shortness of breat h or wheezing #75 mL compressor, for nebulizer #1 ea 06/07/24 01/18/25 Unkn own Rx nebulizer accessories #1 ea 06/07/24 01/18/25 Unkn own 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 sensor (Dexcom G7 #3 ea 06/20/24 5 Unknown Rx Sensor device) 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,transaction processor,cont #1 ea 06/20/24 01/18/25 Un known Rx (Dexcom G7 Tar Distributor Operator) cholecalciferol (vitamin D3) 125 125 mcg PO DAILY 11/0 01/2101/18/25 Unknown History mcg (5,000 unit) tablet apixaban 5 mg tablet (Eliquis) 5 mg PO BID #180 tabs 0 11/03/24 01/18/25 Unknown Rx atorvastatin 40 mg tablet 40 mg PO DAILY #90 tabs 03/02/2201/18/25 Unknown Rx dapagliflozin propanediol 10 mg 10 mg PO ONCE #90 tabs 11/03/24 01/18/25 Unknown Rx tablet (Farxiga) dulaglutide 1.5 mg/0.5 mL 1.5 mg (0.5 mL) SUBCUT .week ly #6 11/03/24 01/18/25 Unknown Rx subcutaneous pen injector mL (Trulicity) famotidine 40 mg tablet 40 mg PO BID #90 tabs 01/18/25 Unknown Rx fenofibrate 160 mg tablet 160 mg PO DAILY #90 tabs 02/2201/18/25 Unknown Rx metolazone 2.5 mg tablet See Rx Instructions .Route 0 11/03/24 01/18/25 Unknown Rx .COMPLEX #90 tabs tamsulosin 0.4 mg capsule 0.4 mg PO DAILY #90 caps 02/2201/18/25 Unknown Rx tizanidine 4 mg tablet 4 mg PO Q8H PRN Muscle Spast icity 11/03/24 01/18/25 Unknown Rx #90 tabs levetiracetam 500 mg tablet 500 mg PO QDAY #30 tabs 01/18/25 Unknown Rx sildenafil 50 mg tablet (Viagra) 50 mg PO DAILY PRN se xual activity 12/15/24 01/18/25 Unknown Rx #10 tabs prednisone 20 mg tablet 20 mg PO BID #10 tabs 01/18/25 Unknown Rx Allergies Allergy/AdvReac Type Severity Reaction Status Date / Time fentanyl Allergy Unknown Verified 01/18/25 15:43 lisinopril AdvReac Mild Coughing Verified 01/18/25 15:43 PFSH Acute 2 PFSH: Medical History Atrial fibrillation Rotator cuff arthropathy of right shoulder Osteoarthritis of shoulders, bilateral Bilateral shoulder pain Pulmonary HTN Nonischemic cardiomyopathy Mixed hyperlipidemia Nonrheumatic aortic (valve) stenosis HTN (hypertension) Severe obstructive sleep apnea Nocturnal hypoxemia [place] (obstructive sleep apnea) ARUNA (acute kidney injury) Bilateral foot pain Generalized weakness Acute encephalopathy Generalized muscle weakness Acute alteration in mental status Confusion Epistaxis Anticoagulation adequate with anticoagulant therapy Transaminitis Daytime sleepiness Enrolled in chronic care management Gout attack Acute and chronic respiratory failure with hypoxia Ascending aortic aneurysm Congestive heart failure Pneumonia Acute and chronic respiratory failure with hypoxia Erectile dysfunction Type 2 diabetes mellitus Chronic kidney disease Anemia Diarrhea Diabetic foot Idiopathic gout, right ankle and foot DDD (degenerative disc disease), lumbosacral Surgical History Hx of arthroscopy of left knee Hx of tooth extraction History of cardiac pacemaker Hx of heart surgery (2017) Aortic valve replacement and aneurysm repair Family History Mother CAD (coronary artery disease) Brother Cancer Other Diabetes mellitus, type 2 Hypertension Denies family history of Diabetes Clotting disorder Dementia Chronic kidney disease (CKD) Suicide Anesthesia complication Bleeding disorder Lung disease Stroke Social History (Updated 02/22/25 @ 20:53 by Davon Torres MD) Smoking and tobacco/nicotine status: never used tobacco/nicotine Second hand smoke exposure: No Alcohol intake: current Alcohol intake frequency: 3 or more drinks per day Alcohol type: beer Alcohol use comment: 3-6 beers a day Substance/Drug Use: never Additional social history: 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 He is in the midst of a divorce from his Anisha to whom he has been 15 years but for now he is still reporting her as next of kin. He wants full CODE STATUS Adopted: No Caregiver/support person: Yes (spouse) Lives independently: Yes Household members: spouse and children Housing: House Marital status: Number of children: 3 Number of grandchildren: 3 Highest education level completed: 6th Grade service: No Current occupational status: disabled Pets and animals: Yes Current gender identity: Male Special pola needs: No Agree to transfusion: Yes Vitals/I&O/Wt Last Vital Signs Temp 99.6 F 02/22/25 18:00 Pulse 71 02/22/25 20:30 Resp 32 H 02/22/25 20:30 BP 108/74 02/22/25 20:30 Pulse Ox 94 02/22/25 20:15 O2 Del Method Nasal Cannula 02/22/25 20:03 O2 Flow Rate 2 02/22/25 20:03 Weight last 48 hrs Weight 108.59 kg Physical Exam 2 Narrative: General well-developed well-nourished male in no acute cardiopulmonary distress he is mildly agitated repeatedly stating he has to get up to go to the bathroom but he has a Salazar. CBC regular rate and rhythm Lungs clear to auscultation bilaterally Abdomen positive bowel sounds soft obese nontender Calves no asymmetry or edema Mentation is alert and oriented to person [facility] January and the year Neuro he has jerking of the left arm at rest but is able to raise it up and it makes the tremor go away with movement Urinary Catheter Management: Salazar: Cath Placed During This Visit: yes Reason for Continuing Indwelling Catheter: Other Urinary Catheter Date of Insertion: 02/22/25 Urinary Catheter Time of Insertion: 18:09 Data 02/22/25 17:12 02/22/25 17:12 Micro: Microbiology 02/22/25 18:59 Blood Culture - Preliminary Blood SPECIMEN COLLECTED 02/22/25 17:12 Blood Culture - Preliminary Blood SPECIMEN COLLECTED A&P Assessment and plan (1) ARUNA (acute kidney injury): Patient will be hydrated with saline. Check postvoid residual bladder scan with catheter straight cath if greater than 300 cc (2) Hyponatremia: Saline infusion recheck sodium level in the morning (3) Atrial fibrillation: Continue with Eliquis. He has paced rhythm (4) Nonischemic cardiomyopathy: 01/26/2024 echocardiogram dilated LV cavity with diminished ejection fraction of 33%. Multiple wall motion abnormalities as mentioned above. Moderate biatrial enlargement. The bioprosthetic valve the aortic position appears to be well- seated with moderate aortic valve stenosis-calculated valve area 1.28 cm squared. Peak velocity of 2.95 m/s with a peak gradient of 35 and a mean gradient of 22 mmHg. Ascending aortic aneurysm measuring 5.65 cm. Dilated IVC with normal respiratory variation. Moderate pulmonary hypertension with an estimated pulmonary artery peak systolic pressure of 60 mmHg. Mild-moderate mitral valve regurgitation. Moderate tricuspid valve regurgitation. Mild pulmonary valve regurgitation. There is no pericardial effusion. Compared to the study from 09/18/2023, there may not be a significant change (5) Severe obstructive sleep apnea: Daughter states that he was prescribed CPAP but he never used it because he does not like having things on his face (6) Type 2 diabetes mellitus: Cover with sliding scale insulin and start a 1800-calorie weight loss diet (7) Alcoholism: Will monitor with CIWA precautions. Patient denies that he gets tremulous when he does not drink PDMP PDMP Reviewed: Not Reviewed Attestations 2 Medical Necessity Statement*: Patient is admitted to the ICU with hypotension acute kidney injury on chronic kidney disease and will require greater than 2 midnights in the hospital Coding Level of Care Code 24915 Diagnoses ARUNA (acute kidney injury) N17.9 Hyponatremia E87.1 Atrial fibrillation I48.91 Nonischemic cardiomyopathy I42.8 Severe obstructive sleep apnea G47.33 Type 2 diabetes mellitus without complication, without long-term current use of insulin E11.9 Diabetes mellitus continuous churn buttermaker insulin use: without continuous churn buttermaker use Diabetes mellitus complication status: without complication Alcoholism F10.20 Time Spent (min) 70
[2025-02-22 21:50] LABS: Cortisol Random 29.79 ug/dL (2.47-19.5); Thyroid Stimulating Hormone 1.79 uIU/mL (0.27-4.20)
[2025-02-22] MEDS: hydrocortisone 100 mg/2 mL SDV 50 MG IVP (21:55)
[2025-02-22] MEDS: thiamine 100 mg/mL 2mL SDV IM (21:56)
[2025-02-22] MEDS: LORazepam 1 MG/0.5 ML injection 2 MG IVP (21:59)
[2025-02-23] VITALS (15 sets, daily range): BP systolic 94–115; BP diastolic 61–74; PULSE 69–74; RESP 23–32; TEMP 37; O2SAT 91–94
[2025-02-23] MEDS: hydrocortisone 100 mg/2 mL SDV 50 MG IVP (03:39)
[2025-02-23 07:05] LABS: Anion Gap 17.4 (5-19); Blood Urea Nitrogen 69 mg/dL (8-23); Calcium 8.4 mg/dL (8.5-10.5); Carbon Dioxide 20 mmol/L (22-29); Chloride 98 mmol/L (98-107); Glomerular Filtration Rate 19.5 mL/min (90-130); Glucose 150 mg/dL (65-115); Osmolality Calculated 295 mOsm/kg (285-295); Potassium 4.4 mmol/L (3.5-5.1); Sodium 131 mmol/L (136-145)
[2025-02-23 07:20] LABS: Glucose Point of Care 131 mg/dL (70-110)
[2025-02-23] MEDS: multivitamin therapeutic Tablet 1 TAB PO (09:20)
[2025-02-23] MEDS: ferrous sulfate EC 325 mg Tablet PO ×2 (09:20→17:38)
[2025-02-23] MEDS: tamsulosin 0.4 mg Capsule PO (09:20)
[2025-02-23] MEDS: thiamine 100 mg Tablet PO (09:20)
[2025-02-23] MEDS: folic acid 1 mg Tablet PO (09:21)
[2025-02-23] MEDS: atorvastatin 40 mg Tablet PO (09:21)
[2025-02-23] MEDS: aspirin 81 mg EC Tablet PO (09:21)
[2025-02-23] MEDS: cholecalciferol (vitamin D3) 5,000 unit Tablet 5000 UNIT PO (09:21)
[2025-02-23] MEDS: apixaban 5 mg Tablet PO ×2 (09:21→17:38)
[2025-02-23] MEDS: azithromycin 250 mg Tablet 500 MG PO (09:21)
[2025-02-23] MEDS: levETIRAcetam 500 mg Tablet PO (09:21)
[2025-02-23] MEDS: cyanocobalamin 1,000 mcg Tablet 1000 MCG PO (09:21)
[2025-02-23] MEDS: fenofibrate 145 mg Tablet PO (09:22)
[2025-02-23 09:39] LABS: Urine Random Sodium 48 mmol/L
[2025-02-23 11:24] LABS: Glucose Point of Care 230 mg/dL (70-110)
[2025-02-23] MEDS: acetaminophen 325 mg Tablet 650 MG PO ×2 (12:02→21:34)
[2025-02-23] MEDS: insulin lispro 100 unit/1 mL SUBCUT ×2 (12:26→20:49)
--- NOTE | 2025-02-23 15:36 | CTR_ITS ---
PROCEDURE INFORMATION: Exam: CT Chest Without Contrast; Diagnostic Exam date and time: 02/23/2025 3:52 PM Age: 69 years old Clinical indication: Other: Streptococcus bacteremia TECHNIQUE: Imaging protocol: Diagnostic computed tomography of the chest without contrast. Radiation optimization: All CT scans at this facility use at least one of these dose optimization techniques: automated exposure control; mA and/or kV adjustment per patient size (includes targeted exams where dose is matched to clinical indication); or iterative reconstruction. COMPARISON: CT angio chest [id number] 10/09/2023 12:38 PM RADIATION DOSE METRICS: Total DLP (mGy-cm): 1267.65 FINDINGS: Tubes, catheters and devices: There is a dual-lead AICD with leads positioned in the right atrium and right ventricle. Lungs: There is a calcified granuloma in the right lower lobe. There is subsegmental atelectasis in the lung bases. There is no consolidation. Pleural spaces: There is no pleural effusion or pneumothorax. Heart: There is moderate cardiac enlargement. There is no pericardial effusion. Coronary arteries: There is moderate coronary artery calcification. Lymph nodes: There is no mediastinal or hilar lymphadenopathy. Vasculature: There is moderate aortic atherosclerotic disease. There is aortic root replacement. Gallbladder and biliary ducts: There is a gallstone in the nondistended gallbladder. Bones/joints: There is a chronic ununited sternotomy with intact wires. No acute osseous findings. Soft tissues: The extrathoracic soft tissues are unremarkable. PROCEDURE INFORMATION: Exam: CT Abdomen And Pelvis Without Contrast Exam date and time: 02/23/2025 3:52 PM Age: 69 years old Clinical indication: Other: Streptococcus bacteremia TECHNIQUE: Imaging protocol: Computed tomography of the abdomen and pelvis without contrast. Radiation optimization: All CT scans at this facility use at least one of these dose optimization techniques: automated exposure control; mA and/or kV adjustment per patient size (includes targeted exams where dose is matched to clinical indication); or iterative reconstruction. COMPARISON: CT kidney stone [id number] 09/23/2023 8:24 PM RADIATION DOSE METRICS: Total DLP (mGy-cm): 1267.65 FINDINGS: Lungs: There is subsegmental atelectasis in the lung bases. Liver: The liver is normal. Gallbladder and biliary ducts: There is no intrahepatic or extrahepatic bile duct dilation. Cholelithiasis is present. There is no sign of cholecystitis. Pancreas: The pancreas is unremarkable. Spleen: The spleen is mildly enlarged. Adrenal glands: The adrenal glands are unremarkable. Kidneys and ureters: The kidneys are unremarkable. No hydronephrosis or stones. No ureteral dilation. Stomach and bowel: The stomach is unremarkable. The small bowel is nondilated. There is mild sigmoid colonic diverticulosis without evidence of diverticulitis. Appendix: The appendix is not visible. Intraperitoneal space: There is no free air or significant intraperitoneal free fluid. Vasculature: There is moderate aortic atherosclerotic disease. Lymph nodes: There is no lymphadenopathy in the retroperitoneum, mesentery, pelvis or inguinal regions. Urinary bladder: Trace gas in the anterior bladder lumen or wall. The bladder is nondistended. There is minimal pericystic edema anteriorly. Reproductive: There is nonspecific mild enlargement of the prostate gland. Bones/joints: There is mild degenerative disease in the lumbar spine. The pelvis and hips are unremarkable. There is a nonaggressive appearing sclerotic bone lesion in the left proximal femoral metaphysis suggesting enchondroma. Soft tissues: The abdominal wall is intact. CT/[place] [id number] IMPRESSION: 1. No acute findings. No sign of infection. 2. Incidental findings above. IMPRESSION: 1. Trace gas in the bladder lumen or wall may represent cystitis or sequelae of recent catheterization. No sign of upper urinary tract obstruction or infection. 2. Incidental findings above.
--- NOTE | 2025-02-23 15:36 | USCV_ITS ---
Pawan Marcum Age: 69 Gender: M : 1955 Exam Date: 02/23/2025 19:38 Ordering Phys: Josias Matthews MD Technologist: CHANDRA Exam Location: [facility] [place] Indication: sob BP: 101 / 69 HR: 68 Rhythm: Atrial fibrillation Technical Quality: Adequate MEASUREMENTS (Male / Female) Normal Values 2D ECHO LV Diastolic Diameter PLAX 5.3 cm 4.2 - 5.9 / 3.9 - 5.3 cm IVS Diastolic Thickness 2.6 cm 0.6 - 1.0 / 0.6 - 0.9 cm IVS Systolic Thickness 2.3 cm LVPW Diastolic Thickness 1.6 cm 0.6 - 1.0 / 0.6 - 0.9 cm LVPW Systolic Thickness 1.8 cm LVOT Diameter 2.3 cm LV Ejection Fraction 2D Teich 43.4 % LV Ejection Fraction MOD 4C 32.7 % LV Ejection Fraction MOD 2C 27.5 % LV Ejection Fraction 2C AL 29.4 % LA Diameter 5.3 cm LA Sys Volume AL 135.4 cm cubed LA Sys Volume Index AL 59.0 cm cubed/m squared Aorta at Sinotubular Diameter 5.1 cm IVC Diameter 1.8 cm M-MODE LA Ao Ratio MM 1.2 AV Cusp Separation MM 1.2 cm DOPPLER AV Peak Velocity 393.0 cm/s LVOT Peak Velocity 88.0 cm/s AV Area Cont Eq vti 1.0 cm squared AV Area Cont Eq pk 0.9 cm squared MV Peak Velocity 128.0 cm/s MV Area PHT 5.9 cm squared Mitral E to A Ratio 0.0 TV Peak Velocity 282.0 cm/s TR Peak Velocity 290.0 cm/s TR Peak Gradient 33.6 mmHg TV Peak E Velocity 47.0 cm/s PV Peak Velocity 96.0 cm/s FINDINGS Left Ventricle Left ventricle is normal in size. LV systolic function is severely reduced with EF of 20-25%. Severe global hypokinesis. Right Ventricle Normal in size and function. Pacemaker lead is seen Right Atrium Dilated Left Atrium Dilated Mitral Valve Mild mitral annular calcification. Mild to moderate mitral regurgitation. Aortic Valve Bioprosthetic aortic valve is thickened and has echogenic structure. Can not rule out endocarditis. Mild aortic regurgitation. Severe aortic stenosis with aortic valve area of 0.95 cm squared and mean gradient across aortic valve of 36 mmHg. DVI is abnormal and is 0.22. Tricuspid Valve Mild tricuspid regurgitation. RVSP is 30-35mmHg. Pulmonic Valve Not well visualized Pericardium Normal Aorta Ascending aorta is dilated with diameter of 5.2cm IVC Appears to be normal CONCLUSIONS LV systolic function is severely reduced with EF of 20-25%. Biatrial enlargement. Mild to moderate mitral regurgitation. Bioprosthetic aortic valve has severe stenosis. Bioprosthetic aortic valve has echogenic structure. Can not rule out vegetation Mild tricuspid regurgitation Ascending aorta is dilated with diameter of 5.2 cm. Sagar Newell MD (Electronically Signed) Final Date: 24 February 2025 16:04 S
--- NOTE | 2025-02-23 15:38 | P.PN_ITS ---
Subjective 2 Subjective: Patient was seen this morning, he is alert to person, to place, to time, he can follow commands, denies any focal weakness, no slurring of his words, no focal weakness, no facial droop, no pain complaints, he does not remember the events of yesterday quite well, he does report feeling nauseous, denies any headache, blurry vision, no neck pain, no neck stiffness, no chest pain, no shortness of breath, did work out in the heat yesterday Vitals/I&O/Wt Last Vital Signs Temp 99.6 F 02/22/25 18:00 Pulse 74 02/23/25 15:11 Resp 14 02/22/25 23:56 BP 107/67 02/22/25 21:44 Pulse Ox 95 02/22/25 23:56 O2 Del Method Nasal Cannula 02/22/25 23:56 O2 Flow Rate 2 02/22/25 23:56 02/23/25 02/23/25 02/23/25 06:59 14:59 22:59 Intake Total 750 / 750 Output Total 800 / 800 800 / 800 Balance -800 / 1450 -50 / -50 Weight last 48 hrs Weight 104.78 kg Weight 105 kg Weight 108.59 kg Physical Exam 2 Const: COMMON NORMALS: no acute distress Eye: COMMON NORMALS: Equal, round and reactive pupils present and EOMs intact bilaterally PUPIL: Yes Equal, round and reactive pupils present Resp: COMMON NORMALS: normal respiratory effort, No retractions, No use of accessory muscles and clear to auscultation bilaterally AUSCULTATION: clear to auscultation bilaterally Cardio: COMMON NORMALS: regular rate, regular rhythm, S1 normal heart sound present and S2 normal heart sound present RATE: regular rate RHYTHM: r egular rhythm HEART SOUNDS: S1 normal heart sound present and S2 normal heart sound present GI: COMMON NORMALS: Normal to inspection, nondistended, normoactive bowel sounds present and non-tender Extremity: COMMON NORMALS: no pedal edema Neuro: COMMON NORMALS: CN's II-XII intact bilaterally, moves all extremities and no focal motor deficits Psych: COMMON NORMALS: mental status grossly normal Urinary Catheter Management: Salazar: Cath Placed During This Visit: yes, but has since been removed by the nurse Reason for Continuing Indwelling Catheter: Decision to DC Catheter Urinary Catheter Date of Insertion: 02/22/25 Urinary Catheter Time of Insertion: 18:09 Date Urinary Catheter Removed: 02/23/25 Time Urinary Catheter Discontinued: 12:18 Data 02/22/25 17:12 02/23/25 06:17 Micro: Microbiology 02/22/25 17:12 Blood Culture - Preliminary Blood Streptococcus species 02/22/25 18:59 Blood Culture - Preliminary Blood SPECIMEN COLLECTED A&P Assessment and plan (1) ARUNA (acute kidney injury): (2) Hyponatremia: (3) Atrial fibrillation: (4) Nonischemic cardiomyopathy: (5) Severe obstructive sleep apnea: (6) Type 2 diabetes mellitus: (7) Alcoholism: (8) Streptococcal bacteremia: (9) Status post aortic valve replacement and aortoplasty: (10) Altered mental status: Plan Streptococcal bacteremia - 4/4 blood cultures positive for Streptococcus - Source is unclear -meningitis? With initial presentation although has no complaints of neck stiffness, neck pain -Pneumonia? Chest x-ray did show opacity of left chest base, Possible pneumonia -UA within normal limits Plan - CT chest abdomen pelvis - Follow repeat blood cultures - Continue IV Rocephin Acute CVA? Versus TIA -With slurred speech, left-sided facial droop, left-sided weakness - Last known known well normal was 2:30 PM - Not a TNKase candidate as he was on Eliquis -NIH stroke scale admission was [address]/CT head thrombolytic 53069 IMPRESSION: Slight hypodensity in the posterior left frontal lobe may represent artifact versus changes related to infarction. Recommend MRI with diffusion-weighted imaging for further evaluation. CTA head and neck - CT/CT angio headneck* [id number] IMPRESSION: 1. No large vessel occlusion or significant stenosis. 2. The intracranial portion of the right vertebral artery is very small. This is a commonly seen nonspecific finding which may represent variant anatomy. IMPRESSION: No acute vascular findings. - Imaging findings of head CT are on the left which would not correlate with his symptoms on the left - On examination this morning his NIH stroke scale is 0-1 he does have a very slight left facial droop but no other focal neurologic deficits - No slurring of his words, pupils equal reactive to light, extraocular movements intact, no left-sided deficits that I could discern Plan - Continue aspirin - Continue Eliquis - Statin - Will consider MRI based on clinical progress Altered mental status - History of seizures - With left-sided weakness, left-sided facial droop question of acute CVA - With streptococcal bacteremia - Neurochecks - NIH stroke scale Acute kidney injury - Creatinine 3.2 - Did receive contrast for CTA as above - Has a history of systolic CHF EF 33% - Will continue gentle IV hydration at 30 cc Concerns for heat exhaustion/heat stroke - Nausea, vomiting, exposed to the heat - Continue gentle IV hydration Acute on chronic hyponatremia, monitor Systolic CHF, hypoxia requiring 2 L - Will hold off on Lasix therapy for now - Cardiac echo december 2023 CONCLUSIONS Mildly dilated LV cavity with diminished ejection fraction of 33%. Multiple wall motion abnormalities as mentioned above. Moderate biatrial enlargement. The bioprosthetic valve the aortic position appears to be well- seated with moderate aortic valve stenosis-calculated valve area 1.28 cm squared. Peak velocity of 2.95 m/s with a peak gradient of 35 and a mean gradient of 22 mmHg. Ascending aortic aneurysm measuring 5.65 cm. Dilated IVC with normal respiratory variation. Moderate pulmonary hypertension with an estimated pulmonary artery peak systolic pressure of 60 mmHg. Mild-moderate mitral valve regurgitation. Moderate tricuspid valve regurgitation. Mild pulmonary valve regurgitation. There is no pericardial effusion. Compared to the study from 09/18/2023, there may not be a significant change Type 2 diabetes mellitus, low-dose sliding scale Alcoholism, CIWA protocol History of atrial fibrillation, continue Eliquis History of seizures, continue Keppra History of CAD, history of CABG History of pacemaker placement History of poor Burger heart valve placement Sleep apnea, CPAP PDMP PDMP Reviewed: Not Reviewed Attestations 2 Medical Necessity Statement*: Patient requires hospitalization for Streptococcus bacteremia, altered mental status, acute encephalopathy, acute CVA, ARUNA Diagnoses ARUNA (acute kidney injury) N17.9 Hyponatremia E87.1 Atrial fibrillation I48.91 Nonischemic cardiomyopathy I42.8 Severe obstructive sleep apnea G47.33 Type 2 diabetes mellitus without complication, without long-term current use of insulin E11.9 Diabetes mellitus [facility] insulin use: without termite control representative use Diabetes mellitus complication status: without complication Alcoholism F10.20 Streptococcal bacteremia R78.81; B95.5 Status post aortic valve replacement and aortoplasty Z95.2 Altered mental status R41.82
--- NOTE | 2025-02-23 15:50 | PC.NURSE ---
overall good day did bedside speech elevation no difficulty talking no swallowing problems diet started at this time assist up in room no weakness noted cobb removed whole and intact and able to void per urinal consistant carb diet given with good appititie alert and oriented this am . order for sitter discontinued , family in for visit no distress noted
--- NOTE | 2025-02-23 16:38 | PHA.VACGOAL ---
Vancomycin Goal - Goal Vancomycin Goal:: 15-20 mg/L Vancomycin Indication:: Pneumonia - Therapy Day of therpy:: Day []of [] . Actual body weight (kg): 231 lb - Data Labs: WBC 10.31 10^3/uL (3.29-11.43) 02/22/25 17:12 RBC 3.94 10^6/uL (3.85-5.65) 02/22/25 17:12 Hgb 12.90 g/dL (11.27-16.99) 02/22/25 17:12 Hct 39.4 % (37-53) 02/22/25 17:12 MCV 100.0 fl (82-101) 02/22/25 17:12 MCH 32.7 pg (27-33) 02/22/25 17:12 MCHC 32.7 g/dL (30-55) 02/22/25 17:12 RDW 13.5 % (12.1-15.1) 02/22/25 17:12 Sodium 131 mmol/L (136-145) L 02/23/25 06:17 Potassium 4.4 mmol/L (3.5-5.1) 02/23/25 06:17 Chloride 98 mmol/L (98-107) 02/23/25 06:17 Carbon Dioxide 20 mmol/L (22-29) L 02/23/25 06:17 Anion Gap 17.4 (5-19) 02/23/25 06:17 BUN 69 mg/dL (8-23) H 02/23/25 06:17 Creatinine 3.2 mg/dL (0.7-1.2) H 02/23/25 06:17 GFR Calculation 19.5 mL/min (90-130) L 02/23/25 06:17 Treatment plan:: new consult Regimen:: PULSE DOSING TROUGH 02/240 TO DETERMINE NEXT DOSE
[2025-02-23] MEDS: vancomycin 1,500 MG/300 ML PIGGYBACK 200 MG IV (16:43)
[2025-02-23 17:03] LABS: NT Pro B Type Natriuretic Pept 25469 pg/mL (0-125); Procalcitonin 5.29 ng/mL (0-0.5)
[2025-02-23 17:25] LABS: Anion Gap 19.9 (5-19); Blood Urea Nitrogen 67 mg/dL (8-23); C Reactive Protein 123.7 mg/L (0.0-4.9); Calcium 8.3 mg/dL (8.5-10.5); Carbon Dioxide 18 mmol/L (22-29); Chloride 98 mmol/L (98-107); Glomerular Filtration Rate 23.7 mL/min (90-130); Glucose 119 mg/dL (65-115); Osmolality Calculated 295 mOsm/kg (285-295); Potassium 3.9 mmol/L (3.5-5.1); Sodium 132 mmol/L (136-145)
[2025-02-23] MEDS: cefTRIAXone 2,000 mg SDV 2000 MG IVP (17:39)
[2025-02-23 17:43] LABS: Glucose Point of Care 125 mg/dL (70-110)
[2025-02-23] MEDS: water for injection-sterile 10 ML 10000 ML (17:46)
[2025-02-23 20:21] LABS: Glucose Point of Care 155 mg/dL (70-110)
[2025-02-23] MEDS: sodium chloride 0.9% 1,000 ML 30 ML IV (20:50)
[2025-02-24] VITALS (11 sets, daily range): BP systolic 85–110; BP diastolic 50–74; PULSE 71–79; RESP 12–28; TEMP 36.9; O2SAT 90–96
[2025-02-24 05:24] LABS: Basophils % 0.1 %; Eosinophils % 0.1 %; Hematocrit 39.7 % (37-53); Lymphocytes # 1.1 10^3/uL (0.8-4.8); Lymphocytes % 11.4 %; Mean Corpuscular HGB Conc 32.7 g/dL (30-55); Mean Corpuscular Hemoglobin 32.5 pg (27-33); Mean Corpuscular Volume 99.3 fl (82-101); Mean Platelet Volume 11.4 fL (7.4-10.4); Monocytes # 0.9 10^3/uL (0.2-0.9); Monocytes % 9.9 %; Neutrophils # 7.17 10^3/uL (1.8-7.7); Neutrophils % 78.2 %; Nucleated Red Blood Cells % 0 %; Platelet Count 110 10^3/cmm (157-399); Red Cell Distribution Width 13.3 % (12.1-15.1); White Blood Count 9.18 10^3/uL (3.29-11.43)
[2025-02-24 05:56] LABS: Alanine Aminotransferase 16 U/L (0-41); Albumin Level 3.2 g/dL (3.5-5.2); Alkaline Phosphatase 33 U/L (40-130); Anion Gap 15.8 (5-19); Aspartate Amino Transferase 31 U/L (0-40); Blood Urea Nitrogen 55 mg/dL (8-23); C Reactive Protein 106.6 mg/L (0.0-4.9); Calcium 8.5 mg/dL (8.5-10.5); Carbon Dioxide 23 mmol/L (22-29); Chloride 99 mmol/L (98-107); Glomerular Filtration Rate 28.5 mL/min (90-130); Glucose 112 mg/dL (65-115); Osmolality Calculated 294 mOsm/kg (285-295); Potassium 3.8 mmol/L (3.5-5.1); Sodium 134 mmol/L (136-145); Total Bilirubin 0.8 mg/dL (0.15-1.2); Total Protein 6.2 g/dL (6.6-8.7)
[2025-02-24 06:07] LABS: NT Pro B Type Natriuretic Pept 18744 pg/mL (0-125); Procalcitonin 4.58 ng/mL (0-0.5)
--- NOTE | 2025-02-24 07:34 | PC.NURSE ---
Patient is threatening to leave AMA if the doctor does not release him now. Patient is threatening to call his clinical editor if he is not released soon. Patient is ripping off telemetry and refusing some medical care. Dr. Matthews was contacted and the doctor ordered to try to verbally re direct the patient. Patient is becoming more anxious.
[2025-02-24 07:49] LABS: Glucose Point of Care 151 mg/dL (70-110)
--- NOTE | 2025-02-24 09:07 | PM.DCS ---
Discharge Providers Date of Admission: 02/22/25 19:23 Date of Discharge: February 24, 2025 Attending Provider at Admission: Davon Torres MD Attending Provider at Discharge: Josias Matthews MD Primary Care Provider: BELLA Bahena Diagnoses at Discharge Discharge Diagnosis (1) ARUNA (acute kidney injury): Status: Acute (2) Hyponatremia: Status: Acute (3) Atrial fibrillation: Status: Acute (4) Nonischemic cardiomyopathy: Status: Acute (5) Severe obstructive sleep apnea: Status: Acute (6) Type 2 diabetes mellitus: Status: Chronic Qualifiers: Diabetes mellitus complication status: without complication Diabetes mellitus terminal operations supervisor insulin use: without terminal operations supervisor use Qualified Code(s): E11.9 - Type 2 diabetes mellitus without complications (7) Alcoholism: Status: Acute (8) Streptococcal bacteremia: Status: Acute (9) Status post aortic valve replacement and aortoplasty: Status: Acute (10) Altered mental status: Status: Acute Reason for Visit Reason for Visit: Stroke Hospital Course Hospital Course This is a 69-year-old male with a past medical history of of CKD, aortic valve replacement, atrial fibrillation on Eliquis, hypertension, sleep apnea, type 2 diabetes mellitus, anemia, systolic CHF, alcoholism, CAD, history of pacemaker placement who [place] [facility] due to nausea, vomiting, left-sided weakness, altered mental status The morning of 02/24/2025 -Patient wanted to leave AMA, signed out AMA - Patient was seen, as arrived to ICU around 7:30 AM -He is ambulating around the nursing desk in the ICU, around to me, is on his left-hand side, - He was alert oriented x 3, following all commands, ambulating, I cannot discern any facial droop, no slurring of his words, he used his right hand to shake my hand, - I had a detailed discussion with Pawan about the morbidity and mortality associated with leaving AGAINST MEDICAL ADVICE - I frankly told Pawan that with his streptococcal bacteremia, concerns for meningitis, concerns for pneumonia, concerns for acute CVA, acute kidney injury, CHF, he will have a high likelihood of morbidity or mortality if he leaves AGAINST MEDICAL ADVICE - Pawan tells me that he has a lot of stuff to do at home, he needs to take care of his kids - I discussed with Pawan that currently he needs to take care of himself, he is still quite ill from his underlying medical conditions, we still need to do further investigation, further testing, such as a lumbar puncture, continue IV antibiotics and sure his blood cultures are clear - However Pawan was adamant about going home - I made it very clear to Pawan in front of his ex-, in front of all nursing staff present in the ICU, that if he leaves the ICU/hospital he will and have a high risk of morbidity and mortality - Pawan voiced understanding, all questions answered, I believe he has the capacity to make decisions, he is not encephalopathic - Pawan left AGAINST MEDICAL ADVICE - I have sent in prescription for broad-spectrum antibiotic therapy, such as Levaquin and Zyvox that have good POSTAL MAIL CARRIER penetration, good for bloodstream infections, renally dosed. However I have done the best I can, I would likely recommend monitoring his kidney function, monitoring his electrolytes, monitoring his CBC, and I would recommend antibiotics that are sensitive to his infection. However as he is left AMA, I cannot do this, and I cannot confirm that his bacteremia has cleared, I cannot confirm the Streptococcus is sensitive to the p.o. antibiotics I have sent to the pharmacy, and he could possibly require IV antibiotics. Streptococcal bacteremia - 4/4 blood cultures positive for Streptococcus - Source is unclear -Elevated Pro-Niels, CRP -meningitis? With initial presentation although has no complaints of neck stiffness, neck pain -Pneumonia? Chest x-ray did show opacity of left chest base, Possible pneumonia, requiring 2 L -UA within normal limits Plan - CT chest abdomen pelvis no acute findings - Follow repeat blood cultures pending - Continue IV Rocephin - Patient left AMA Acute CVA? Versus TIA -With slurred speech, left-sided facial droop, left-sided weakness - Last known known well normal was 2:30 PM - Not a TNKase candidate as he was on Eliquis -NIH stroke scale admission was [address]/CT head thrombolytic 75532 IMPRESSION: Slight hypodensity in the posterior left frontal lobe may represent artifact versus changes related to infarction. Recommend MRI with diffusion-weighted imaging for further evaluation. CTA head and neck - CT/CT angio headneck* [id number] IMPRESSION: 1. No large vessel occlusion or significant stenosis. 2. The intracranial portion of the right vertebral artery is very small. This is a commonly seen nonspecific finding which may represent variant anatomy. IMPRESSION: No acute vascular findings. - Imaging findings of head CT are on the left which would not correlate with his symptoms on the left - On examination this morning his NIH stroke scale is 0-1 he does have a very slight left facial droop but no other focal neurologic deficits - No slurring of his words, pupils equal reactive to light, extraocular movements intact, no left-sided deficits that I could discern Plan - Continue aspirin - Continue Eliquis - Statin - Will consider MRI based on clinical progress, cannot do to do to pacemaker - Left AMA - Discussed with patient that if he has any recurrent strokelike symptoms stimuli call 9 1 Altered mental status, when leaving AMA he was alert oriented x 3, following all commands - History of seizures - With left-sided weakness, left-sided facial droop question of acute CVA, has resolved - With streptococcal bacteremia - Neurochecks - NIH stroke scale Acute kidney injury, left AMA - Creatinine 2.3 on discharge hydrate well - Did receive contrast for CTA as above - Has a history of systolic CHF EF 33% - Will continue gentle IV hydration at 30 cc Concerns for heat exhaustion/heat stroke - Nausea, vomiting, exposed to the heat - Continue gentle IV hydration, left AMA, encourage p.o. hydration Acute on chronic hyponatremia, monitor, left AMA Systolic CHF, hypoxia requiring 2 L - Will hold off on Lasix therapy for now - Cardiac echo december 2023 CONCLUSIONS Mildly dilated LV cavity with diminished ejection fraction of 33%. Multiple wall motion abnormalities as mentioned above. Moderate biatrial enlargement. The bioprosthetic valve the aortic position appears to be well- seated with moderate aortic valve stenosis-calculated valve area 1.28 cm squared. Peak velocity of 2.95 m/s with a peak gradient of 35 and a mean gradient of 22 mmHg. Ascending aortic aneurysm measuring 5.65 cm. Dilated IVC with normal respiratory variation. Moderate pulmonary hypertension with an estimated pulmonary artery peak systolic pressure of 60 mmHg. Mild-moderate mitral valve regurgitation. Moderate tricuspid valve regurgitation. Mild pulmonary valve regurgitation. There is no pericardial effusion. Compared to the study from 09/18/2023, there may not be a significant change - BNP over 18,000 - Follow-up with primary care follow-up cardiology as outpatient, left AMA Type 2 diabetes mellitus, low-dose sliding scale Alcoholism, CIWA protocol, discussed alcohol cessation counseling, left AMA History of atrial fibrillation, continue Eliquis History of seizures, continue Keppra History of CAD, history of CABG History of pacemaker placement History heart valve placement Sleep apnea, CPAP Physical Exam Narrative: Patient left AMA before I could examine him, but he was seen walking the hallway in ICU, he was alert oriented x 3, following all commands, no facial droop I could discern, no slurring of his words, moving bilateral upper and lower extremities, walking, no imbalance noticed, he shook my hand using his right hand Urinary Catheter Management: Salazar: Cath Placed During This Visit: yes, but has since been removed by the nurse Reason for Continuing Indwelling Catheter: Decision to DC Catheter Urinary Catheter Date of Insertion: 02/22/25 Urinary Catheter Time of Insertion: 18:09 Date Urinary Catheter Removed: 02/23/25 Time Urinary Catheter Discontinued: 12:18 Discharge Data Studies Completed and Pending Completed Studies During Hospitalization Category Date Time Status CT angio headneck* [id number] Stat Cat Scan 02/22/25 16:[address] chest abdomen pelvis [[place] [id number] Cat Scan 02/23/25 15:36 Completed ] Routine CT head thrombolytic [id number] Stat Cat Scan 02/22/25 16:41 Completed CXRP [XR chest 1V portable [id number]] Stat Exams 02/22/25 17:41 Completed Pending at discharge Category Date Time Status Blood Culture AM LABS Lab 02/24/25 04:49 Results Blood Culture Stat Lab 02/22/25 17:12 Results C Reactive Protein AM LABS Lab 02/25/25 04:00 Ordered C Reactive Protein AM LABS Lab 02/26/25 04:00 Ordered Complete Blood Count w/Auto AM LABS Lab 02/25/25 04:00 Ordered Complete Blood Count w/Auto AM LABS Lab 02/26/25 04:00 Ordered Comprehensive Metabolic Panel AM LABS Lab 02/25/25 04:00 Ordered Comprehensive Metabolic Panel AM LABS Lab 02/26/25 04:00 Ordered NT Pro B Type Natriuretic Pept QAM Lab 02/25/25 06:00 Ordered NT Pro B Type Natriuretic Pept QAM Lab 02/26/25 06:00 Ordered Procalcitonin AM LABS Lab 02/25/25 04:00 Ordered Procalcitonin AM LABS Lab 02/26/25 04:00 Ordered Vancomycin Trough Timed Lab 02/24/25 15:30 Ordered CV. echo complete* [id number] Routine Ultrasound 02/23/25 15:36 Taken Radiology Impressions Head CT 02/22/25 16:41 IMPRESSION: Slight hypodensity in the posterior left frontal lobe may represent artifact versus changes related to infarction. Recommend MRI with diffusion-weighted imaging for further evaluation. ASSESSMENT: ASPECTS ([place] Stroke Program Early CT Score) is 8. COMMENTS: Changes related to acute infarction may remain occult for up to [address] imaging. Recommend MRI with diffusion weighted imaging to exclude acute infarction if clinically indicated. ADDENDUM: 02/22/25 1708 COMMENT: THIS REPORT CONTAINS FINDINGS THAT MAY BE CRITICAL TO PATIENT CARE. The exam findings were verbally communicated by me to SONA DELEON via telephone conference at 5:06 PM CDT on 02/22/2025. The findings were acknowledged and understood. Head/Neck CTA 02/22/25 16:41 IMPRESSION: 1. No large vessel occlusion or significant stenosis. 2. The intracranial portion of the right vertebral artery is very small. This is a commonly seen nonspecific finding which may represent variant anatomy. IMPRESSION: No acute vascular findings. REFERENCES: NASCET CRITERIA. The degree of stenosis in the cervical segment of the internal carotid artery is based on NASCET criteria. Normal is no stenosis. Mild is less than 50% stenosis. Moderate is 50-69% stenosis. Severe is 70% to 99% stenosis. Total occlusion is no detectable patent lumen. ADDENDUM: 02/22/25 1465 COMMENT: THIS REPORT CONTAINS FINDINGS THAT MAY BE CRITICAL TO PATIENT CARE. The exam findings were verbally communicated by me to SONA DELEON via telephone conference at 5:30 PM CDT on 02/22/2025. The findings were acknowledged and understood. Chest X-Ray 02/22/25 17:41 IMPRESSION: Heart is enlarged and there is pulmonary venous distension suggesting left heart failure. Opacity at the left chest base could be airspace disease and/or pleural fluid. Chest/Abdomen/Pelvis CT 02/23/25 15:36 IMPRESSION: 1. No acute findings. No sign of infection. 2. Incidental findings above. IMPRESSION: 1. Trace gas in the bladder lumen or wall may represent cystitis or sequelae of recent catheterization. No sign of upper urinary tract obstruction or infection. 2. Incidental findings above. Laboratory Results WBC 9.18 10^3/uL (3.29-11.43) 02/24/25 04:45 RBC 4.00 10^6/uL (3.85-5.65) 02/24/25 04:45 Hgb 13.00 g/dL (11.27-16.99) 02/24/25 04:45 Hct 39.7 % (37-53) 02/24/25 04:45 MCV 99.3 fl (82-101) 02/24/25 04:45 MCH 32.5 pg (27-33) 02/24/25 04:45 MCHC 32.7 g/dL (30-55) 02/24/25 04:45 RDW 13.3 % (12.1-15.1) 02/24/25 04:45 Plt Count 110 10^3/cmm (157-399) L 02/24/25 04:45 MPV 11.4 fL (7.4-10.4) H 02/24/25 04:45 Neut % (Auto) 78.2 % 02/24/25 04:45 Lymph % (Auto) 11.4 % 02/24/25 04:45 [place] % (Auto) 9.9 % 02/24/25 04:45 Eos % (Auto) 0.1 % 02/24/25 04:45 Baso % (Auto) 0.1 % 02/24/25 04:45 Neut # (Auto) 7.17 10^3/uL (1.8-7.7) 02/24/25 04:45 Lymph # (Auto) 1.1 10^3/uL (0.8-4.8) 02/24/25 04:45 [place] # (Auto) 0.9 10^3/uL (0.2-0.9) 02/24/25 04:45 Eos # (Auto) 0.0 10^3/uL (0.0-0.8) 02/24/25 04:45 Baso # (Auto) 0.0 10^3/uL (0.0-0.1) 02/24/25 04:45 Nucleated RBC % (auto) 0 % 02/24/25 04:45 Nucleated RBCs # 0.0 /100WBC 02/24/25 04:45 PT 18.50 SECONDS (12.1-14.9) H 02/22/25 17:12 INR 1.44 (0.8-1.2) H 02/22/25 17:12 APTT 29.9 SECONDS (23.9-36.7) 02/22/25 17:12 Sodium 134 mmol/L (136-145) L 02/24/25 04:45 Potassium 3.8 mmol/L (3.5-5.1) 02/24/25 04:45 Chloride 99 mmol/L (98-107) 02/24/25 04:45 Carbon Dioxide 23 mmol/L (22-29) 02/24/25 04:45 Anion Gap 15.8 (5-19) 02/24/25 04:45 BUN 55 mg/dL (8-23) H 02/24/25 04:45 Creatinine 2.3 mg/dL (0.7-1.2) H 02/24/25 04:45 GFR Calculation 28.5 mL/min (90-130) L 02/24/25 04:45 Glucose 112 mg/dL (65-115) 02/24/25 04:45 POC Glucose 151 mg/dL (70-110) H 02/24/25 07:41 Calculated Osmolality 294 mOsm/kg (285-295) 02/24/25 04:45 Lactic Acid 1.8 mmol/L (0.5-2.2) 02/22/25 17:12 Calcium 8.5 mg/dL (8.5-10.5) 02/24/25 04:45 Total Bilirubin 0.8 mg/dL (0.15-1.2) 02/24/25 04:45 AST 31 U/L (0-40) 02/24/25 04:45 ALT 16 U/L (0-41) 02/24/25 04:45 Alkaline Phosphatase 33 U/L (40-130) L 02/24/25 04:45 C-Reactive Protein 106.6 mg/L (0.0-4.9) H 02/24/25 04:45 NT-Pro-B Natriuret Pep 58066 pg/mL (0-125) H 02/24/25 04:45 Total Protein 6.2 g/dL (6.6-8.7) L 02/24/25 04:45 Albumin 3.2 g/dL (3.5-5.2) L 02/24/25 04:45 Globulin 3.0 g/dL (1.3-4.6) 02/24/25 04:45 Procalcitonin 4.58 ng/mL (0-0.5) H 02/24/25 04:45 TSH 1.79 uIU/mL (0.27-4.20) 02/22/25 17:12 Random Cortisol 29.79 ug/dL (2.47-19.5) H 02/22/25 17:12 Urine Color Yellow (Yellow) 02/22/25 17:50 Urine Appearance Clear (CLEAR) 02/22/25 17:50 Urine pH 5.0 (5-7) 02/22/25 17:50 Ur Specific Coral 1.025 (1.005-1.030) 02/22/25 17:50 Urine Protein Negative (Negative) 02/22/25 17:50 Urine Glucose (UA) 2+ (Normal) H 02/22/25 17:50 Urine Ketones Negative (Negative) 02/22/25 17:50 Urine Blood 1+ (Negative) A 02/22/25 17:50 Urine Nitrate Negative (Negative) 02/22/25 17:50 Urine Bilirubin Negative (Negative) 02/22/25 17:50 Urine Urobilinogen 0.2 mg/dL (Negative) 02/22/25 17:50 Ur Leukocyte Esterase Negative (Negative) 02/22/25 17:50 Urine RBC 11-20 /hpf (0-2) H 02/22/25 17:50 Urine WBC 0-5 /hpf (0-5) 02/22/25 17:50 Ur Squamous Epith Cells 0-5 /hpf (0-5) 02/22/25 17:50 Amorphous Sediment Not Reportable 02/22/25 17:50 Urine Bacteria None seen /hpf (NONE) 02/22/25 17:50 Hyaline Casts 2.05 /lpf 02/22/25 17:50 Ur Random Sodium 48 mmol/L 02/23/25 09:15 Urine Opiates Screen Negative ng/mL (Negative) 02/22/25 17:50 Ur Barbiturates Screen Negative ng/mL (Negative) 02/22/25 17:50 Ur Phencyclidine Scrn Negative ng/mL (Negative) 02/22/25 17:50 Ur Amphetamines Screen Negative ng/mL (Negative) 02/22/25 17:50 U Benzodiazepines Scrn Negative ng/mL (Negative) 02/22/25 17:50 Urine Cocaine Screen Negative ng/mL (Negative) 02/22/25 17:50 U Marijuana (THC) Screen Negative ng/mL (Negative) 02/22/25 17:50 Vitals Last Vital Signs Temp 98.5 F 02/24/25 05:43 Pulse 71 02/24/25 05:44 Resp 26 H 02/24/25 04:00 BP 99/71 02/24/25 04:00 Pulse Ox 90 02/24/25 04:00 O2 Del Method Nasal Cannula 02/22/25 23:56 O2 Flow Rate 2 02/22/25 23:56 Discharge Plan Discharge Patient Disposition: Left Against Medical Advice Condition: Stable Prescriptions: New levofloxacin 750 mg tablet 750 mg PO Q48H 10 Days Qty: 5 0RF linezolid 600 mg tablet 600 mg PO BID 10 Days Qty: 20 0RF No Action (DME) diabetic shoes with inserts See Rx Instructions .Route .MEDSUPPLY Qty: 1 0RF Rx Instructions: As directed ferrous sulfate [FeroSul] 325 mg (65 mg iron) tablet 325 mg PO DAILY (DME) wheelchair lightweight See Rx Instructions .Route .MEDSUPPLY Qty: 1 0RF Rx Instructions: Lightweight wheelchair for in home use sacubitril-valsartan 97-103 mg tablet 1 tab PO BID Qty: 180 3RF fenofibrate 160 mg tablet 160 mg PO DAILY Qty: 90 1RF atorvastatin 40 mg tablet 40 mg PO DAILY Qty: 90 1RF Eliquis 5 mg tablet 5 mg PO BID Qty: 180 1RF tizanidine 4 mg tablet 4 mg PO Q8H PRN (Reason: Muscle Spasticity) Qty: 90 1RF famotidine 40 mg tablet 40 mg PO BID Qty: 90 1RF Trulicity 1.5 mg/0.5 mL pen injector 1.5 mg SUBCUT .weekly Qty: 6 1RF Rx Instructions: on Thursday (DME) o2 at 3L per nasal cannula See Rx Instructions .Route .MEDSUPPLY Qty: 1 0RF Rx Instructions: Room air O2 sats were 83. After 3L O2 went up to 90's however when walking still at 89 on 3 L O2. nitroglycerin 0.3 mg tablet, sublingual 0.3 mg sublingual Q5M PRN (Reason: chest pain) Qty: 30 0RF Rx Instructions: do not exceed 3 doses per episode (DME) Diabetic shoes with inserts See Rx Instructions .Route .MEDSUPPLY Qty: 1 0RF Rx Instructions: As directed cholecalciferol (vitamin D3) 125 mcg (5,000 unit) tablet 125 mcg PO DAILY (DME) nebulizer accessories Kit See Rx Instructions .Route Qty: 1 0RF Rx Instructions: As directed ([facility]) compressor, for nebulizer Device See Rx Instructions .Route Qty: 1 0RF Rx Instructions: As directed ([facility]) Dexcom G7 Sensor Device See Rx Instructions .Route Qty: 3 5RF Rx Instructions: As directed ([facility]) Dexcom G7 Manager Of Health Misc See Rx Instructions .Route Qty: 1 0RF Rx Instructions: As directed ([facility]) Blood pressure cuff and machine See Rx Instructions .Route .MEDSUPPLY Qty: 1 0RF Rx Instructions: As directed furosemide 20 mg tablet 20 mg PO DAILY Qty: 90 3RF metolazone 2.5 mg tablet See Rx Instructions .ROUTE .COMPLEX Qty: 90 3RF Dose Instruction: TAKE ONE TABLET BY MOUTH EVERY DAY Rx Instructions: One tablet every other day sildenafil [Viagra] 50 mg tablet 50 mg PO DAILY PRN (Reason: sexual activity) Qty: 10 2RF Rx Instructions: administer 30 minutes to 4 hours before activity DO NOT TAKE WITH NITRO levetiracetam 500 mg tablet 500 mg PO QDAY Qty: 30 2RF aspirin 81 mg tablet,delayed release (DR/EC) 81 mg PO DAILY zinc sulfate 50 mg zinc (220 mg) capsule 50 mg PO DAILY diclofenac sodium [Voltaren Arthritis Pain] 1 % gel 2 g topical QID PRN (Reason: JOINT PAIN) Rx Instructions: apply to single elbow, wrist or hand; for hand includes palm/fingers/back of hand mecobalamin (vitamin B12) 1,000 mcg tablet,disintegrating 1,000 mcg PO DAILY dapagliflozin propanediol [Farxiga] 10 mg tablet 10 mg PO DAILY allopurinol 100 mg tablet 50 mg PO .EVERY OTHER DAY hydrocodone-acetaminophen 10-325 mg tablet 0.5 - 1 tab PO .Q4-6H PRN (Reason: Pain) tamsulosin 0.4 mg capsule 0.4 mg PO BEDTIME Referrals: Lora Buchanan FNP-C [Primary Care Provider, [facility]] Discharge Diet: Cardiac Discharge Activity: Resume usual activity Discharge Attestations Time Spent in Discharge Care*: greater than 30 min Quality Metrics Clinical Quality Measures [ No reported AMI, CVA or VTE this stay] Coding Level of Care Code 14742 Total time (in minutes) for Discharge: 35 Diagnoses ARUNA (acute kidney injury) N17.9 Hyponatremia E87.1 Atrial fibrillation I48.91 Nonischemic cardiomyopathy I42.8 Severe obstructive sleep apnea G47.33 Type 2 diabetes mellitus without complication, without long-term current use of insulin E11.9 Diabetes mellitus complication status: without complication Diabetes mellitus custodial insulin use: without terminal operations supervisor use Alcoholism F10.20 Streptococcal bacteremia R78.81; B95.5 Status post aortic valve replacement and aortoplasty Z95.2 Altered mental status R41.82
--- NOTE | 2025-02-24 09:13 | PC.NURSE ---
Patient was educated multiple times about the risks of leaving against medical advice. Patient was asked if they could stay until doctor Cassie discharged the. Patient was adamant about leaving. Patient started to go out of the unit. Patient signed discharge form. Doctor talked to the patient about risks of from not getting their medications and treatments. Patient stated they understood and walked out of the unit.
--- NOTE | 2025-02-24 09:33 | PC.NURSE ---
After patient left HOME, Dr. Matthews states that [facility] I reviewed the medications and called to speak with patient's spouse, Anisha and informed her of medications needing picked up. She verbalizes understanding and states she will ensure he receives the medications.
== END 2025-02-24 09:05 | disposition left against medical advice (07) | DRG 871 ==
LOC: ER 20:43 → ER IP 21:04 → ICU 21:13
PROVIDERS: Admitting Provider Internal Medicine; Emergency Provider Emergency Medicine; PCP Nurse Practitioner Family; Visit Provider Family Medicine
DX: A40.9 Streptococcal sepsis, unspecified (principal); I63.9 Cerebral infarction, unspecified; N17.9 Acute kidney failure, unspecified; E87.1 Hypo-osmolality and hyponatremia; I42.8 Other cardiomyopathies; I13.0 Hypertensive heart and chronic kidney disease with heart failure and stage 1 through stage 4 chronic kidney disease, or unspecified chronic kidney disease; I50.22 Chronic systolic (congestive) heart failure; J96.11 Chronic respiratory failure with hypoxia; G81.94 Hemiplegia, unspecified affecting left nondominant side; I35.0 Nonrheumatic aortic (valve) stenosis; Z53.29 Procedure and treatment not carried out because of patient's decision for other reasons; I48.91 Unspecified atrial fibrillation; G47.33 Obstructive sleep apnea (adult) (pediatric); E11.22 Type 2 diabetes mellitus with diabetic chronic kidney disease; N18.9 Chronic kidney disease, unspecified; F10.20 Alcohol dependence, uncomplicated; D63.1 Anemia in chronic kidney disease; N52.9 Male erectile dysfunction, unspecified; E78.2 Mixed hyperlipidemia; I27.20 Pulmonary hypertension, unspecified; R47.81 Slurred speech; R29.810 Facial weakness; I25.10 Atherosclerotic heart disease of native coronary artery without angina pectoris; Z79.01 Long term (current) use of anticoagulants; Z79.891 Long term (current) use of opiate analgesic; Z79.82 Long term (current) use of aspirin; Z95.3 Presence of xenogenic heart valve; Z99.89 Dependence on other enabling machines and devices; Z95.0 Presence of cardiac pacemaker; Z95.1 Presence of aortocoronary bypass graft
CPT/HCPCS: 36415; 36416; 51702; 70450; 70496; 70498; 71045; 71250; 74176; 80048; 80053; 80306; 81001; 82533; 82962; 83605; 83880; 84145; 84300; 84443; 85025; 85610; 85730; 86140; 87040; 87077; 87150; 87186; 87205; 93005; 93306; 96365; 96372; 96375; 99291; J0456; J0696; J1720; J1815; J2060; J3370; J3411; J7030; J7050; J9999; Q0144

== ENCOUNTER → 2025-02-28 10:46 | Outpatient (BNVA) | payer MEDICARE, MEDICAID, SELFPAY | PROVIDERS: PCP Nurse Practitioner Family; Visit Provider Internal Medicine Cardiovascular Disease | DX: Z45.018 Encounter for adjustment and management of other part of cardiac pacemaker (principal); I11.0 Hypertensive heart disease with heart failure; I50.20 Unspecified systolic (congestive) heart failure; E78.2 Mixed hyperlipidemia; E11.9 Type 2 diabetes mellitus without complications; Z79.85 Long-term (current) use of injectable non-insulin antidiabetic drugs; I42.8 Other cardiomyopathies; I35.0 Nonrheumatic aortic (valve) stenosis; I71.21 Aneurysm of the ascending aorta, without rupture; Z79.01 Long term (current) use of anticoagulants; Z79.82 Long term (current) use of aspirin; Z86.711 Personal history of pulmonary embolism; Z95.2 Presence of prosthetic heart valve | CPT/HCPCS: 93296; 99213 ==

== ENCOUNTER → 2025-03-28 09:08 | Outpatient (BNVA) | payer MEDICARE, MEDICAID, SELFPAY | PROVIDERS: PCP Nurse Practitioner Family; Visit Provider Student in an Organized Health Care Education/Training Program | DX: R78.81 Bacteremia (principal); B95.5 Unspecified streptococcus as the cause of diseases classified elsewhere; I38 Endocarditis, valve unspecified; I95.9 Hypotension, unspecified | CPT/HCPCS: 36415; 80053; 85025; 85651; 86140; 87040; 99205 ==

== ENCOUNTER 2025-03-30 16:10 | Inpatient (IN) | payer MEDICARE, MEDICAID, SELFPAY ==
[2025-03-30] VITALS (32 sets, daily range): BP systolic 78–135; BP diastolic 46–76; PULSE 70–104; RESP 15–25; TEMP 36.4–36.8; O2SAT 93–99; BMI 34.7
--- NOTE | 2025-03-30 16:24 | XRR_ITS ---
PROCEDURE INFORMATION: Exam: XR Chest Exam date and time: 03/30/2025 4:30 PM Age: 69 years old Clinical indication: Cough and dyspnea; Prior surgery; Surgery date: 6+ months; Surgery type: Pacemaker, open-heart; Additional info: Dyspnea/cough TECHNIQUE: Imaging protocol: Radiologic exam of the chest. Views: 1 view. COMPARISON: Single AP portable chest x-ray February 22, 2025 at 6:36 p.m. FINDINGS: Tubes, catheters and devices: Unchanged left pacemaker projecting unusual position. Lungs: Unremarkable. No consolidation. Pleural spaces: Unremarkable. No pleural effusion. No pneumothorax. Heart/Mediastinum: Unchanged moderate cardiomegaly. Bones/joints: Nothing acute. No change. Other findings: Stable surgical changes. XR/XR chest 1V portable [id number] IMPRESSION: 1. Unchanged moderate cardiomegaly. 2. No superimposed acute disease.
--- NOTE | 2025-03-30 16:42 | W.ED.WEAKNES ---
HPI - Weakness General: Chief complaint: Weakness Stated complaint: Dr Schuler Needs Blood and fluid Time Seen by Provider: 03/30/25 16:22 History of Present Illness: 69-year-old male states he was thought to have endocarditis he has been seen by infectious disease he left AMA there was supposed to get a transesophageal echo but he did not have this done. He has been seen at the infectious disease clinic they were going to get him set up with a PICC line. He has not yet got that completed he was discharged home with oral antibiotics but left AMA he completed those but did not do any of his follow-up. He was convinced by family others to return today. Patient has severe aortic stenosis of bioprosthetic valve needs to be replaced as well he also has a dilated aortic aneurysm. There is a concern for bacterial endocarditis that has not yet been confirmed with JONATHAN he Associated symptoms: Reports chest pain; Denies chills, dysuria or fever(s) Related Data Home Medications ?Medication ?Instructions ?Recorded ?Confirmed cholecalciferol (vitamin D3) 125 125 mcg PO DAILY 07/05/24 03/31/25 mcg (5,000 unit) tablet dapagliflozin propanediol 10 mg 10 mg PO DAILY 02/23/25 03/31/25 tablet (Farxiga) tamsulosin 0.4 mg capsule 0.4 mg PO BEDTIME 02/23/25 03/31/25 Previous Rx's ?Medication ?Instructions ?Recorded diabetic shoes with inserts #1 ea 02/28/21 Blood pressure cuff and machine #1 ea 06/27/22 o2 at 3L per nasal cannula #1 ea 08/11/22 nitroglycerin 0.3 mg sublingual 0.3 mg sublingual Q5M PRN chest 10/08/22 tablet pain #30 tabs Diabetic shoes with inserts #1 ea 04/24/23 furosemide 20 mg tablet 20 mg PO DAILY EDEMA #90 tabs 05/09/24 wheelchair #1 ea 06/02/24 compressor, for nebulizer #1 ea 06/07/24 nebulizer accessories #1 ea 06/07/24 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 sensor (Dexcom G7 #3 ea 06/20/24 Sensor device) 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,minesweeping officer,cont #1 ea 06/20/24 (Dexcom G7 Arson Investigator) apixaban 5 mg tablet (Eliquis) 5 mg PO BID #180 tabs 11/03/24 atorvastatin 40 mg tablet 40 mg PO DAILY #90 tabs 11/03/24 dulaglutide 1.5 mg/0.5 mL 1.5 mg (0.5 mL) SUBCUT .weekly #6 11/03/24 subcutaneous pen injector mL (Trulicity) famotidine 40 mg tablet 40 mg PO BID #90 tabs 11/03/24 fenofibrate 160 mg tablet 160 mg PO DAILY #90 tabs 11/03/24 metolazone 2.5 mg tablet See Rx Instructions .Route 11/03/24 .COMPLEX #90 tabs levetiracetam 500 mg tablet 500 mg PO QDAY #30 tabs 02/24/25 sildenafil 50 mg tablet (Viagra) 50 mg PO DAILY PRN sexual activity 02/24/25 #10 tabs aspirin 81 mg tablet,delayed 81 mg PO DAILY #90 tabs 02/28/25 release allopurinol 100 mg tablet 50 mg (1/2 x 100 mg) PO .EVERY 03/24/25 OTHER DAY #30 tabs Allergies Allergy/AdvReac Type Severity Reaction Status Date / Time fentanyl Allergy Unknown Verified 03/30/25 14:02 lisinopril AdvReac Mild Coughing Verified 03/30/25 14:02 Review of Systems Const: Denies: fever(s) or chills Card: Reports: chest pain Resp: Reports: dyspnea GI: Denies: abdominal pain : Denies: dysuria, urinary frequency or urinary urgency Musc: Denies: neck pain or back pain Skin/Breast: Denies: rash PFSH ED PFSH: Medical History Atrial fibrillation Rotator cuff arthropathy of right shoulder Osteoarthritis of shoulders, bilateral Bilateral shoulder pain Pulmonary HTN Nonischemic cardiomyopathy Mixed hyperlipidemia Nonrheumatic aortic (valve) stenosis HTN (hypertension) Severe obstructive sleep apnea Nocturnal hypoxemia CAROLINA (obstructive sleep apnea) ARUNA (acute kidney injury) Bilateral foot pain Generalized weakness Acute encephalopathy Generalized muscle weakness Acute alteration in mental status Confusion Epistaxis Anticoagulation adequate with anticoagulant therapy Transaminitis Daytime sleepiness Enrolled in chronic care management Gout attack Acute and chronic respiratory failure with hypoxia Ascending aortic aneurysm Congestive heart failure Pneumonia Acute and chronic respiratory failure with hypoxia Erectile dysfunction Type 2 diabetes mellitus Chronic kidney disease Anemia Diarrhea Diabetic foot Idiopathic gout, right ankle and foot DDD (degenerative disc disease), lumbosacral Surgical History Hx of arthroscopy of left knee Hx of tooth extraction History of cardiac pacemaker Hx of heart surgery (2017) Aortic valve replacement and aneurysm repair Family History Mother CAD (coronary artery disease) Brother Cancer Other Diabetes mellitus, type 2 Hypertension Denies family history of Diabetes Clotting disorder Dementia Chronic kidney disease (CKD) Suicide Anesthesia complication Bleeding disorder Lung disease Stroke Social History Smoking and tobacco/nicotine status: never used tobacco/nicotine Second hand smoke exposure: No Alcohol intake: current Alcohol intake frequency: 3 or more drinks per day Alcohol type: beer Substance/Drug Use: never Additional social history: He worked at a [email or web address], [employer] and [employer] and 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 He is in the midst of a divorce from his Anisha to whom he has been 15 years but for now he is still reporting her as next of kin. He wants full CODE STATUS Adopted: No Caregiver/support person: Yes (spouse) Lives independently: Yes Household members: spouse and children Housing: House Marital status: Number of children: 3 Number of grandchildren: 3 Highest education level completed: 6th Grade service: No Current occupational status: disabled Pets and animals: Yes Current gender identity: Male Special pola needs: No Agree to transfusion: Yes Physical Exam Const: GENERAL APPEARANCE: cooperative ORIENTATION/CONSCIOUSNESS: Yes awake, Yes oriented to person, Yes oriented to place and Yes oriented to time HENMT: COMMON NORMALS: normocephalic, atraumatic and hearing grossly normal bilaterally HEAD & SCALP: normocephalic and atraumatic Resp: COMMON NORMALS: normal respiratory effort, No retractions, No use of accessory muscles and clear to auscultation bilaterally AUSCULTATION: clear to auscultation bilaterally Cardio: COMMON NORMALS: regular rate, regular rhythm and No murmurs present (Cardio) RATE: regular rate RHYTHM: regular rhythm GI: COMMON NORMALS: Soft to palpation and No hepatosplenomegaly present AUSCULTATION: Yes normoactive bowel sounds PALPATION: Yes Soft to palpation, No Tenderness to palpation present (GI), No Guarding due to palpation present (GI) and Yes No hepatosplenomegaly present Extremity: COMMON NORMALS: normal to inspection, capillary refill normal, no clubbing, cyanosis or edema, no calf tenderness and no pedal edema Neuro: SENSORIUM/ORIENTATION: Yes oriented to person, Yes oriented to place and Yes oriented to time Skin: COMMON NORMALS: no rashes or lesions noted GENERAL SKIN EXAM: no rashes or lesions noted Course Vital Signs: Vital signs: Vital Signs Temperature 97.8 F 03/31/25 04:00 Pulse Rate 73 03/31/25 14:36 Respiratory Rate 14 03/31/25 14:36 Blood Pressure 112/70 03/31/25 14:36 Pulse Oximetry 95 03/31/25 14:36 Oxygen Delivery Me thod Room Air 03/31/25 02:00 MDM - Weakness Medical Decision Making Patient is hypotensive ultimately started on Levophed. Was gently given fluid boluses started on IV antibiotics as well cultures done. Discussed with hospitalist will admit. He still has not had the JONATHAN. Cardiology to be consulted. Patient was resistant initially but did agree to stay. Medical Records I reviewed the patient's medical records. Lab Data I reviewed the patient's lab results. 03/31/25 04:39 03/31/25 04:39 Radiology Impressions Chest X-Ray 03/30/25 16:24 IMPRESSION: 1. Unchanged moderate cardiomegaly. 2. No superimposed acute disease. Laboratory Results WBC 4.04 10^3/uL (3.29-11.43) 03/30/25 16:38 RBC 1.95 10^6/uL (3.85-5.65) L 03/30/25 16:38 Hgb 6.70 g/dL (11.27-16.99) L 03/30/25 16:38 Hct 21.7 % (37-53) L 03/30/25 16:38 MCV 111.3 fl (82-101) H 03/30/25 16:38 MCH 34.4 pg (27-33) H 03/30/25 16:38 MCHC 30.9 g/dL (30-55) 03/30/25 16:38 RDW 18.3 % (12.1-15.1) H 03/30/25 16:38 Plt Count 141 10^3/cmm (157-399) L 03/30/25 16:38 MPV 10.0 fL (7.4-10.4) 03/30/25 16:38 Neut % (Auto) 66.9 % 03/30/25 16:38 Lymph % (Auto) 23.0 % 03/30/25 16:38 Wheeler % (Auto) 7.7 % 03/30/25 16:38 Eos % (Auto) 1.7 % 03/30/25 16:38 Baso % (Auto) 0.2 % 03/30/25 16:38 Neut # (Auto) 2.70 10^3/uL (1.8-7.7) 03/30/25 16:38 Lymph # (Auto) 0.9 10^3/uL (0.8-4.8) 03/30/25 16:38 Wheeler # (Auto) 0.3 10^3/uL (0.2-0.9) 03/30/25 16:38 Eos # (Auto) 0.1 10^3/uL (0.0-0.8) 03/30/25 16:38 Baso # (Auto) 0.0 10^3/uL (0.0-0.1) 03/30/25 16:38 Nucleated RBC % (auto) 0 % 03/30/25 16:38 Nucleated RBCs # 0.0 /100WBC 03/30/25 16:38 Sodium 137 mmol/L (136-145) 03/30/25 16:38 Potassium 4.5 mmol/L (3.5-5.1) 03/30/25 16:38 Chloride 104 mmol/L (98-107) 03/30/25 16:38 Carbon Dioxide 20 mmol/L (22-29) L 03/30/25 16:38 Anion Gap 17.5 (5-19) 03/30/25 16:38 BUN 93 mg/dL (8-23) H* 03/30/25 16:38 Creatinine 3.7 mg/dL (0.7-1.2) H 03/30/25 16:38 GFR Calculation 16.5 mL/min (90-130) L 03/30/25 16:38 Glucose 131 mg/dL (65-115) H 03/30/25 16:38 Calculated Osmolality 314 mOsm/kg (285-295) H 03/30/25 16:38 Lactic Acid 0.6 mmol/L (0.5-2.2) 03/30/25 17:16 Calcium 7.9 mg/dL (8.5-10.5) L 03/30/25 16:38 Iron 112 ug/dL (59-158) 03/30/25 16:38 Iron Cancelled 03/30/25 16:38 TIBC 268 mcg/dl 03/30/25 16:38 % Saturation 41.7 % (20-50) 03/30/25 16:38 Unsat Iron Binding 156 ug/dL (112-347) 03/30/25 16:38 Ferritin 365 ng/mL (30-400) 03/30/25 16:38 Ferritin Cancelled 03/30/25 16:38 Total Bilirubin 0.3 mg/dL (0.15-1.2) 03/30/25 16:38 AST 23 U/L (0-40) 03/30/25 16:38 ALT 9 U/L (0-41) 03/30/25 16:38 Alkaline Phosphatase 25 U/L (40-130) L 03/30/25 16:38 Total Protein 5.9 g/dL (6.6-8.7) L 03/30/25 16:38 Albumin 3.2 g/dL (3.5-5.2) L 03/30/25 16:38 Globulin 2.7 g/dL (1.3-4.6) 03/30/25 16:38 Blood Type O Positive 03/30/25 17:16 Rho(D) Type Rh positive 03/30/25 17:16 Antibody Screen Negative 03/30/25 17:16 Crossmatch See Detail 03/30/25 17:16 All radiology interpretation(s) finalized by discharge Discharge Plan Discharge Patient Disposition: Admitted As Inpatient Admit Provider: Maicol Marion Clinical Impression: Nonischemic cardiomyopathy, Endocarditis, ARUNA (acute kidney injury), Streptococcal bacteremia, Ascending aortic aneurysm, Aortic stenosis, Alcoholism Condition: Stable Discharge Diet: Usual diet Discharge Activity: Resume usual activity Coding Level of Care Code ED Automation Consultant for Janelle Medina
--- NOTE | 2025-03-30 16:46 | ECG_ITS ---
[facility] 2025-03-30 Pat Name: Pawan Marcum Department: Room: Gender: Male Child Care Leader: : 1955 Requested By: Carlos Jules Order Number: [id number] Reading MD: BLACK HEARN Measurements Intervals [place] Rate: 70 P: 0 WA: 0 QRS: -56 QRSD: 190 T: 132 QT: 449 QTc: 485 Interpretive Statements ELECTRONIC VENTRICULAR PACEMAKER ABNORMAL RHYTHM ECG Compared to ECG 02/22/2025 17:20:41 No significant changes Electronically Signed On 03-30-2025 22:17:18 CDT by BLACK HEARN [email or web address]
[2025-03-30 16:56] LABS: Hematocrit 21.7 % (37-53); Hemoglobin 6.70 g/dL (11.27-16.99); Mean Corpuscular HGB Conc 30.9 g/dL (30-55); Mean Corpuscular Hemoglobin 34.4 pg (27-33); Mean Corpuscular Volume 111.3 fl (82-101); Nucleated Red Blood Cells % 0 %; Platelet Count 141 10^3/cmm (157-399); Red Blood Count 1.95 10^6/uL (3.85-5.65); White Blood Count 4.04 10^3/uL (3.29-11.43)
[2025-03-30 17:17] LABS: Alanine Aminotransferase 9 U/L (0-41); Albumin Level 3.2 g/dL (3.5-5.2); Alkaline Phosphatase 25 U/L (40-130); Anion Gap 17.5 (5-19); Aspartate Amino Transferase 23 U/L (0-40); Calcium 7.9 mg/dL (8.5-10.5); Carbon Dioxide 20 mmol/L (22-29); Chloride 104 mmol/L (98-107); Creatinine Clr Calc Pharmacy 23.3078; Globulin 2.7 g/dL (1.3-4.6); Glucose 131 mg/dL (65-115); Osmolality Calculated 314 mOsm/kg (285-295); Potassium 4.5 mmol/L (3.5-5.1); Sodium 137 mmol/L (136-145); Total Protein 5.9 g/dL (6.6-8.7)
[2025-03-30 17:28] LABS: Blood Urea Nitrogen 93 mg/dL (8-23)
[2025-03-30] MEDS: norepinephrine 4 MG/250 ML BAG 30 MG IV (17:43)
--- NOTE | 2025-03-30 17:53 | PM.HP ---
Providers/Chief Complaint Admitting Physician: Dr. Marion Primary Care Provider: BELLA Bahena Chief Complaint: Dr Schuler Needs Blood and fluid History of Present Illness Pawan Marcum is a 69 year old male presenting from outpatient clinic for eval for possible endocarditis and severe anemia. PMHx is significant for prior bioprosthetic aortic valve with severe stenosis of prosthetic and HFrEF and chronic hypotension on 70/41 as a common reading. He was previously diagnosed with strep bovis bacteremia. Whe was going to have evaluation for possible endocarditis at that time, however he did not want to stay in the hospital and left AMA. As a stop gap, he was prescribed oral linezolid. He stated he completed a 10 day course of that but he has not been back to outpatient follow ups with ID. He also has history of severe anemia and states he got a blood transfusion about 4 months ago. He presents to ER from clinic for ongoing evaluation of his strep bovis infection. Discussed with cardiology and ID concerning the case. Plan is to admit for JONATHAN in AM and further decisions after this is done. Getting one unit in ER. The patient denies any symptoms. No chest pain, lightheadedness, weakness, numbness/tingling or other symptoms currently. He remains apprehensive about staying and warns that he will not stay for prolonged admission or jail antibiotics. Review of Systems Eyes: Denies: change in vision, eye discomfort or eye discharge ENMT: Denies: throat pain, enlarged tonsils or hoarseness Card: Denies: chest pain or palpitations Resp: Denies: dyspnea or productive cough GI: Denies: abdominal pain or nausea : Denies: flank pain Musc: Denies: neck pain, back pain or extremity pain Skin/Breast: Denies: rash, pruritus or erythema Neuro: Denies: headache(s), numbness in extremities, vertigo, confusion or Slurred speech present Psych: Reports: anxiety; Denies: depression Medications/Allergies Home Medications ?Medication ?Instructions ?Recorded ?Confirmed ?Last Taken ?Type diabetic shoes with inserts #1 ea 02/28/21 03/30/25 08/12/22 Rx Blood pressure cuff and machine #1 ea 06/27/22 03/30/25 08/12/22 Rx o2 at 3L per nasal cannula #1 ea 08/11/22 03/30/25 08/12/22 Rx nitroglycerin 0.3 mg sublingual 0.3 mg sublingual Q5M PRN chest 10/08/22 03/30/25 Unknown Rx tablet pain #30 tabs Diabetic shoes with inserts #1 ea 04/24/23 03/30/25 Unknown Rx diclofenac sodium 1 % topical gel 2 g topical QID PRN JOINT PAIN 03/14/24 03/30/25 Unknown History (Voltaren Arthritis Pain) mecobalamin (vitamin B12) 1,000 1,000 mcg PO DAILY 03/14/24 03/30/25 Unknown History mcg disintegrating tablet,sublingual zinc sulfate 50 mg zinc (220 mg) 50 mg PO DAILY 03/14/24 03/30/25 03/13/24 History capsule ferrous sulfate 325 mg (65 mg 325 mg PO DAILY 04/06/24 03/30/25 Unknown History iron) tablet (FeroSul) furosemide 20 mg tablet 20 mg PO DAILY EDEMA #90 tabs 05/09/24 03/30/25 Unknown Rx wheelchair #1 ea 06/02/24 03/30/25 Unknown Rx compressor, for nebulizer #1 ea 06/07/24 03/30/25 Unknown Rx nebulizer accessories #1 ea 06/07/24 03/30/25 Unknown 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 sensor (Dexcom G7 #3 ea 06/20/24 03/30/25 Unknown Rx Sensor device) 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,community integration specialist,cont #1 ea 06/20/24 03/30/25 Unknown Rx (Dexcom G7 Utility Forester) cholecalciferol (vitamin D3) 125 125 mcg PO DAILY 07/05/24 03/30/25 Unknown History mcg (5,000 unit) tablet apixaban 5 mg tablet (Eliquis) 5 mg PO BID #180 tabs 11/03/24 03/30/25 Unknown Rx atorvastatin 40 mg tablet 40 mg PO DAILY #90 tabs 11/03/24 03/30/25 Unknown Rx dulaglutide 1.5 mg/0.5 mL 1.5 mg (0.5 mL) SUBCUT .weekly #6 11/03/24 03/30/25 Unknown Rx subcutaneous pen injector mL (Trulicity) famotidine 40 mg tablet 40 mg PO BID #90 tabs 11/03/24 03/30/25 Unknown Rx fenofibrate 160 mg tablet 160 mg PO DAILY #90 tabs 11/03/24 03/30/25 Unknown Rx metolazone 2.5 mg tablet See Rx Instructions .Route 11/03/24 03/30/25 Unknown Rx .COMPLEX #90 tabs tizanidine 4 mg tablet 4 mg PO Q8H PRN Muscle Spasticity 11/03/24 03/30/25 Unknown Rx #90 tabs dapagliflozin propanediol 10 mg 10 mg PO DAILY 02/23/25 03/30/25 Unknown History tablet (Farxiga) hydrocodone 10 mg-acetaminophen 0.5 - 1 tab PO .Q4-6H PRN Pain 02/23/25 03/30/25 Unknown History 325 mg tablet tamsulosin 0.4 mg capsule 0.4 mg PO BEDTIME 02/23/25 03/30/25 Unknown History levetiracetam 500 mg tablet 500 mg PO QDAY #30 tabs 02/24/25 03/30/25 Unknown Rx sildenafil 50 mg tablet (Viagra) 50 mg PO DAILY PRN sexual activity 02/24/25 03/30/25 Unknown Rx #10 tabs aspirin 81 mg tablet,delayed 81 mg PO DAILY #90 tabs 02/28/25 03/30/25 Unknown Rx release sacubitril 97 mg-valsartan 103 mg 1 tab PO BID #180 tabs 03/21/25 03/30/25 Unknown Rx tablet allopurinol 100 mg tablet 50 mg (1/2 x 100 mg) PO .EVERY 03/24/25 03/30/25 Unknown Rx OTHER DAY #30 tabs Allergies Allergy/AdvReac Type Severity Reaction Status Date / Time fentanyl Allergy Unknown Verified 03/30/25 14:02 lisinopril AdvReac Mild Coughing Verified 03/30/25 14:02 PFSH Acute PFSH: Medical History Atrial fibrillation Rotator cuff arthropathy of right shoulder Osteoarthritis of shoulders, bilateral Bilateral shoulder pain Pulmonary HTN Nonischemic cardiomyopathy Mixed hyperlipidemia Nonrheumatic aortic (valve) stenosis HTN (hypertension) Severe obstructive sleep apnea Nocturnal hypoxemia CAROLINA (obstructive sleep apnea) ARUNA (acute kidney injury) Bilateral foot pain Generalized weakness Acute encephalopathy Generalized muscle weakness Acute alteration in mental status Confusion Epistaxis Anticoagulation adequate with anticoagulant therapy Transaminitis Daytime sleepiness Enrolled in chronic care management Gout attack Acute and chronic respiratory failure with hypoxia Ascending aortic aneurysm Congestive heart failure Pneumonia Acute and chronic respiratory failure with hypoxia Erectile dysfunction Type 2 diabetes mellitus Chronic kidney disease Anemia Diarrhea Diabetic foot Idiopathic gout, right ankle and foot DDD (degenerative disc disease), lumbosacral Surgical History Hx of arthroscopy of left knee Hx of tooth extraction History of cardiac pacemaker Hx of heart surgery (2017) Aortic valve replacement and aneurysm repair Family History Mother CAD (coronary artery disease) Brother Cancer Other Diabetes mellitus, type 2 Hypertension Denies family history of Diabetes Clotting disorder Dementia Chronic kidney disease (CKD) Suicide Anesthesia complication Bleeding disorder Lung disease Stroke Social History Smoking and tobacco/nicotine status: never used tobacco/nicotine Second hand smoke exposure: No Alcohol intake: current Alcohol intake frequency: 3 or more drinks per day Alcohol type: beer Substance/Drug Use: never Additional social history: He worked at a [employer], [employer] and [employer] and 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 He is in the midst of a divorce from his Anisha to whom he has been 15 years but for now he is still reporting her as next of kin. He wants full CODE STATUS Adopted: No Caregiver/support person: Yes (spouse) Lives independently: Yes Household members: spouse and children Housing: House Marital status: Number of children: 3 Number of grandchildren: 3 Highest education level completed: 6th Grade service: No Current occupational status: disabled Pets and animals: Yes Current gender identity: Male Special pola needs: No Agree to transfusion: Yes Vitals/I&O/Wt Last Vital Signs Temp 98.2 F 03/30/25 16:20 Pulse 72 03/30/25 17:44 Resp 18 03/30/25 16:20 BP 85/54 03/30/25 17:44 Pulse Ox 97 03/30/25 17:44 O2 Del Method Room Air 03/30/25 17:44 Weight last 48 hrs Weight 106.594 kg Physical Exam Const: COMMON NORMALS: apparent distress and negative for average body habitus HENMT: COMMON NORMALS: not normocephalic and head/scalp not atraumatic Eye: COMMON NORMALS: negative for Equal, round and reactive pupils present and negative for EOMs intact bilaterally Neck/C-Spine: COMMON NORMALS: negative for full ROM, negative for no lymphadenopathy and negative for no JVD Lymph: LYMPHATIC: no lymphadenopathy noted and no lymphedema noted Chest: COMMONS NORMALS: negative for normal inspection of the chest and negative for normal palpation of entire chest wall Resp: COMMON NORMALS: negative for normal respiratory effort, negative for No retractions and negative for clear to auscultation bilaterally Cardio: COMMON NORMALS: regular rate; negative for no JVD and negative for regular rhythm GI: COMMON NORMALS: Soft to palpation, non-tender, No hepatosplenomegaly present and no masses Extremity: GENERAL: Yes edema (BL LE) Neuro: COMMON NORMALS: patient oriented x3 and CN's II-XII intact bilaterally Data 03/30/25 16:38 03/30/25 16:38 A&P Assessment and plan 1. Endocarditis: 2. Ascending aortic aneurysm: 3. Aortic stenosis: 4. Hypotension: 5. CHF (congestive heart failure): Plan: 69 year old male presenting with severe anemia, hypotension, recent bacteremia concerning for endocarditis. Recent bacteremia - strep bovis bacteremia 4/4 blood cultures previously - patient left AMA on that visit (02/24), refusing JONATHAN and IV abx - he was given 10 day course of linezolid per ID as a stop gap, which he says he has completed - he presents now for ongoing evaluation, discussed with cardiology, will plan on JONATHAN in AM Hypotension PPM in place - started on levophed in ER - with severe , he will be sensitive to low BP HFrEF - hold anti-hypertensives for low BP in setting of Severe of bioprosthetic AV ascending aortic aneurysm 5.2 cm - will need to follow up with cardiothoracic surgery as OP to eval for timing of AVR and aneurysm repair once infection concerns are resolved H/O PE - hold eliquis for now Severe anemia H/O JOLEEN - perhaps 2/2 prosthetic valve, on eliquis - iron levels low in Aug - no active bleeding - getting one unit in ER - Check iron levels - hold home iron supplement for now ARUNA - cont. IV NS at 100 ml/hr DMII - hold home antidiabetics - SSI H/O seizures - cont. keppra Sleep apnea - CPAP Diet: HH, NPO after midnight PPx: hold AC for procedure Disposition - JONATHAN in AM PDMP PDMP Reviewed: Not Reviewed Attestations Medical Necessity Statement*: Anticipate > 2 midnights for severe anemia, hypotension, concern for endocarditis Time Spent in Patient Care: 16 - 35 minutes (>than 50% of time spent in counselling and/or direct pt care on unit). Coding Level of Care Code Acute Code for [facility] Fwd Diagnoses Endocarditis I38 Ascending aortic aneurysm I71.21 Aortic stenosis I35.0 Hypotension I95.9 CHF (congestive heart failure) I50.9
[2025-03-30 18:20] LABS: Lactic Sepsis W/Reflex 0.6 mmol/L (0.5-2.2)
[2025-03-30 18:45] LABS: Glucose Urine UA 1+ (Normal); Nitrate Urine Negative (Negative); Specific Gravity, Urine 1.011 (1.005-1.030)
[2025-03-30 18:51] LABS: Add Urine Microscopic? YES
[2025-03-30 19:12] LABS: Ferritin 365 ng/mL (30-400); Iron 112 ug/dL (59-158); Total Iron Binding Capacity 268 mcg/dl; Unsaturated Iron Binding 156 ug/dL (112-347)
--- NOTE | 2025-03-30 20:13 | PC.RESP ---
Pt refusing CPAP. states it is smothering him
[2025-03-31] VITALS (52 sets, daily range): BP systolic 82–128; BP diastolic 54–84; PULSE 69–78; RESP 14–29; TEMP 36.4–36.6; O2SAT 89–99
[2025-03-31] MEDS: norepinephrine 4 MG/250 ML BAG 30 MG IV (02:06)
[2025-03-31 05:25] LABS: Hematocrit 24.4 % (37-53); Hemoglobin 7.70 g/dL (11.27-16.99); Mean Corpuscular HGB Conc 31.6 g/dL (30-55); Mean Corpuscular Hemoglobin 33.6 pg (27-33); Mean Corpuscular Volume 106.6 fl (82-101); Nucleated Red Blood Cells % 0.3 %; Platelet Count 135 10^3/cmm (157-399); Red Blood Count 2.29 10^6/uL (3.85-5.65); White Blood Count 6.77 10^3/uL (3.29-11.43)
[2025-03-31 05:44] LABS: Anion Gap 17.2 (5-19); Calcium 8.1 mg/dL (8.5-10.5); Carbon Dioxide 19 mmol/L (22-29); Chloride 108 mmol/L (98-107); Creatinine Clr Calc Pharmacy 31.4566; Glucose 99 mg/dL (65-115); Osmolality Calculated 314 mOsm/kg (285-295); Potassium 4.2 mmol/L (3.5-5.1); Sodium 140 mmol/L (136-145)
[2025-03-31 05:48] LABS: Blood Urea Nitrogen 81 mg/dL (8-23)
--- OUTSIDE RECORDS SUMMARY | 2025-03-31 07:03 | XMS_ITS | Clinical Summary ---
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
--- OUTSIDE RECORDS SUMMARY | 2025-03-31 07:03 | XMS_ITS | Encounter Summary ---
Author Organization [facility] Address [address] [place] [address] Care Team Providers Care Day Camp Counselor Name Role Phone Simran Hyman MD Primary Care Provider Unavail le Encounter Details Date Type Department Care Team (Latest Contact Info) Description 12/30/2005 Outpatient Historical [facility] [address] [facility] [address] [place] [address] Romana Yan MD [address] [facility] [address] [place] [address] Degeneration of Lumbar or Lumbosacral Intervertebral Disc (Primary Dx) Social History Tobacco Use Types Packs/Day Years Used Date Smoking Tobacco: Never Assessed Sex and Gender Information Value Date Recorded Sex Assigned at Not on file 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
--- OUTSIDE RECORDS SUMMARY | 2025-03-31 07:03 | XMS_ITS | Encounter Summary ---
Author Organization [facility] Address [address] [place] [address] Care Team Providers Care Transportation Refrigeration Technician Name Role Phone Simran Hyman MD Primary Care Provider Unavail le Encounter Details Date Type Department Care Team (Latest Contact Info) Description 12/30/2005 Outpatient Historical [facility] [address] 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
--- OUTSIDE RECORDS SUMMARY | 2025-03-31 07:03 | XMS_ITS | Clinical Summary ---
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 Tyler gilman [phone], fax [phone] Procedures Procedure Name Priority Date/Time Associated Diagnosis Comments HEMOGLOBIN A1C Routine 11/12/2022 6:58 PM CDT from Last 3 Months or Most Recently Relevant to Health Maintenance Results * HEMOGLOBIN A1C (11/12/2022 6:58 PM CDT) HEMOGLOBIN A1C 5.4 <=5.6 % 11/14/2022 9:32 AM CDT [facility] [facility] EST. AVG GLUCOSE, A1C 108 mg/dL 11/14/2022 9:32 AM CDT [facility] Blood Venipuncture / Unknown 11/12/2022 6:58 PM CDT 11/12/2022 7:02 PM CDT Narrative [facility] [employer] [facility] - 11/14/2022 9:32 AM CDT HGB A1C INTERPRETATION NORMAL: <5.7% PRE-DIABETES: 5.7 - 6.4% DIABETES: 6.5% OR GREATER us Nyla Sanchez DO CHEMISTRY ORDERABLES Final Resu lt [facility] [employer] [facility] # [id number] [address] [facility] [place] [address] from Last 3 Months or Most Recently Relevant to Health Maintenance Insurance MEDICAID [facility] [place] [facility] DUAL COMPLETE PPO [facility] [id number] Advance Directives For more information, please contact: [phone] * Full Code (Latest Code Status on File) Date Activated Date Inactivated Comments 11/13/2022 4:09 PM 11/20/2022 10:47 PM
--- OUTSIDE RECORDS SUMMARY | 2025-03-31 07:03 | XMS_ITS | Clinical Summary ---
Author Organization [facility] Address [address] [place] [address] Phone Care Team Providers Care Cork Insulator Helper Name Role Phone Libra Buchanan Primary Care Provider [phone] Allergies Active Allergy Reactions Criticality Noted Date Comments Fentanyl Other (see comments) 11/02/2023 Lisinopril Low 11/24/2022 Cough/Broke Legs out Medications * This document contains information received from the source organization and may not represent a complete record from that organization. apixaban (ELIQUIS) 5 MG tablet Take 5 mg by mouth in the morning. Active famotidine (PEPCID) 40 MG tablet Take 40 mg by mouth in the morning and 40 mg in the evening. 12/10/2022 Active metoprolol succinate XL (TOPROL-XL) 100 MG 24 hr tablet Take 100 mg by mouth in the morning. 11/21/2022 Active nitroglycerin (NITROSTAT) 0.4 MG SL tablet DISSOLVE 1 TABLET UNDER THE TONGUE EVERY 5 MINUTES NEEDED FOR CHEST PAIN. DO NOT EXCEED A TOTAL OF 3 DOSES IN 15 MINUTES 10/27/2022 Active Entresto 24-26 MG per tablet Take 2 tablets by mouth 1 (one) time each day in the morning One tablet at night 12/01/2022 Active atorvastatin (LIPITOR) 40 MG tablet Take 1 tablet by mouth 1 (one) time each day 12/24/2022 Active DULoxetine (CYMBALTA) [address] capsule Take 1 capsule by mouth 1 (one) time each day 12/24/2022 Active furosemide (LASIX) 40 MG tablet Take 1 tablet by mouth 1 (one) time each day 12/24/2022 Active hydrALAZINE 25 MG tablet Take 1 tablet by mouth 1 (one) time each day 12/24/2022 Active tiZANidine (ZANAFLEX) 4 MG tablet Take 1 tablet by mouth every 6 (six) hours if needed 12/26/2022 Active amLODIPine (NORVASC) 5 MG tablet Take 5 mg by mouth 1 (one) time each day 03/12/2023 Active Trulicity 0.75 MG/0.5ML solution pen-injector Once weekly 04/07/2023 Acti ve metOLazone 2.5 MG tablet Take 2.5 mg by mouth every other day 03/06/2023 Active fenofibrate (TRIGLIDE) 160 MG tablet Take 1 tablet by mouth 1 (one) time each day 03/17/2023 Active Aspirin Low Dose 81 MG EC tablet Take 81 mg by mouth 1 (one) time each day 02/11/2023 Active benzonatate (TESSALON) 100 MG capsule Take 100 mg by mouth 3 (three) times a day if needed 10/26/2023 Active allopurinol (ZYLOPRIM) 300 MG tablet Take 300 mg by mouth 1 (one) time each day 08/05/2023 Active folic acid (FOLVITE) 1 MG tablet Take 1,000 mcg by mouth 1 (one) time each day 03/30/2024 Active FeroSul 325 (65 Fe) MG tablet Take 1 tablet by mouth 1 (one) time each day 03/29/2024 Active levETIRAcetam (KEPPRA) 500 MG tablet Take 500 mg by mouth every 12 (twelve) hours 04/27/2024 Active potassium chloride (K-TAB) 20 MEQ CR tablet PRN only 03/30/2024 Active tamsulosin (FLOMAX) 0.4 MG 24 hr capsule Take 0.4 mg by mouth 1 (one) time each day 04/27/2024 Active cyanocobalamin (VITAMIN B-12) 1000 MCG tablet Take 1,000 mcg by mouth 1 (one) time each day Active Farxiga 10 MG tablet Take 10 mg by mouth 1 (one) time each day Active HYDROcodone-mariposa taminophen (LORCET PLUS) 10-325 MG per tablet 1 tablet every 6 (six) hours if needed Max 3 1/2 tablets a day 10/20/2024 Active cholecalciferol (VITAMIN D-3) 125 MCG (5000 UT) capsule Take 5,000 Units by mouth 1 (one) time each day Active Active Problems Problem Noted Date Diagnosed Date Vitamin D deficiency 2023 Cardiac pacemaker in situ 11/21/2022 Overview (12/29/2022): Last Assessment & Plan: Patient had battery change in July 2022 of his [employer] device. 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 We plan to reach out to renal social work for assistance We suspect that it is possible the patient may have a different etiology, especially cryoglobulinemia. We would like to check serum electrophoresis and cryoglobulin (sent) Continue prednisone at this time, and we'll re-evaluate use. The most important therapy is to treat the underlying infection. Could consider rheumatology consult if rash worsens off prednisone. They will arrange followup with their clinic if the patient goes home today 4/3 Creatinine down to 1.8 with the lasix gtt, UO very good Aortic valve stenosis 11/16/2022 History of aortic valve replacement 11/16/2022 Aneurysm of ascending aorta 11/15/2022 Congestive heart failure 11/15/2022 Acute nontraumatic kidney injury 11/13/2022 Proteinuria 11/13/2022 Atrial fibrillation 11/12/2022 Gout 11/12/2022 Type 2 diabetes mellitus 11/12/2022 Overview (12/29/2022): Last Assessment & Plan: A1c 5.8 on admission On Trulicity and Lantus/Lispro at home Continue carb consistent diet Monitor accu-checks AC and HS, have been labile Pt states the Trulicity helps stabilize the swings Continue SSI with meals and HS Continue Insulin Glargine at HS POC glucoses labile, adjusted the lantus and mealtime insuline ((last 24 hours 114-154, 76 this am) Family History Medical History Relation Comments Cancer Father Heart disease Mother Relation Status Comments Father Mother Social History Tobacco Use Types Packs/Day Years Used Date Smoking Tobacco: Never Passive Smoke Exposure: Never Smokeless Tobacco: Never Tobacco Cessation:Counseling Given: Not Answered Alcohol Use Standard Drinks/Week Comments Never 0 (1 standard drink = 0.6 oz pur e alcohol) Sex and Gender Information Value Date Recorded Sex Assigned at Not on file Legal Sex Male 9:23 AM EDT Gender Identity Not on file Sexual Orientation Not on file Last Filed Vital Signs Vital Sign Reading Time Taken Comments Blood Pressure 110/62 12/13/2024 11:02 AM CDT Pulse 70 12/13/2024 10:34 AM CDT Temperature - - Respiratory Rate - - Oxygen Saturation 96% 12/13/2024 10:34 AM CDT Inhaled Oxygen Concentration - - Weight 106 kg (233 lb 3.2 oz) 12/13/2024 10:34 A M CDT Height 175.3 cm (5' 9 ) 12/13/2024 10:34 AM CDT Body Mass Index 34.44 12/13/2024 10:34 AM CDT Plan of Treatment Upcoming Encounters Date Type Department Care Team (Late st Contact Info) Description 06/12/2025 10:00 AM CDT Office Visit [facility], [facility] [address] [place] [address] Jen Nicholas MD [address] [facility] [address] [place] [address] Health Maintenance Due Date Last Done Comments Pneumococcal Vaccine: 50+ Years (1 of 2 - PCV) 1976 Colorectal Cancer Screening: Annual FOBT 2006 Colorectal Cancer Screening: Colonoscopy 2006 Colorectal Cancer Screening: Sigmoidoscopy 2006 Diabetes: Ophthalmology Exam 11/21/2022 Diabetes: Pedal Pulse Checked 11/21/2022 Diabetes: Sensory Foot Exam 11/21/2022 Diabetes: Visual Foot Exam 11/21/2022 Diabetes: Hemoglobin A1C 02/21/2023 023, 11/12/2022 Influenza Vaccine (#1) 2025 Hepatitis B Vaccine Aged Out No longe r eligible based on patient's age to complete this topic Insurance Medicaid [place] ([id number]) [facility] [place] MCR Adv ([id number]) Care Teams Cork Insulator Helper Relationship Specialty Start Date End Date Libra Buchanan [address] [address] PCP - General Nephrology 12/13/24
--- NOTE | 2025-03-31 10:00 | P.CONIM_ITS ---
<Statement entered by Sagar Newell M.D - 04/04/25 07:54> Patient was evaluated and cared for in conjunction with an advanced practice practitioner.? I personally examined the patient and reviewed the chart and all pertinent data including imaging, telemetry, and laboratory results.? I discussed the patient in detail with the advanced practice practitioner.? Please see? their note for complete consult note, testing results and agreed upon plan of care for the patient. JONATHAN performed that confirmed no evidence of endocarditis. Moderate aortic stenosis. Providers/Reason For Consult 2 Consulting Physician/Specialty*: Dr Newell, cardiology Reason for Consult*: JONATHAN requested to rule out endocarditis Requesting Physician: Dr. Marion Attending Physician: Maicol Marion MD Primary Care Provider: BELLA Bahena History of Present Illness History of Present Illness Pawan Marcum is a 69 year old male with past medical history of ischemic cardiomyopathy, aortic stenosis s/p bioprosthetic aortic valve replacement, congestive heart failure, permanent pacemaker implant, chronic atrial fibrillation, ascending aortic aneurysm, diagnosed with Streptococcus bacteremia left AMA before endocarditis could be ruled out. He has significant anemia, was sent to the ER by a clinic. He had JONATHAN performed today to rule out endocarditis; no vegetation is present on the bioprosthetic aortic valve. Aortic valve area by planimetry is 1.1 cm?, would recommend repeat transthoracic echo in a few months. He can discharge home. Review of Systems 2 Const: Denies: fever(s), chills, change in weight, fatigue or diaphoresis Eyes: Denies: change in vision ENMT: Denies: epistaxis Card: Denies: chest pain, palpitations, irregular heart rhythm, edema, syncope, pre-syncope, dyspnea on exertion, orthopnea or leg pain with exertion Resp: Denies: dyspnea, productive cough or wheezing GI: Denies: nausea, vomiting, hematemesis, hematochezia or melena : Denies: hematuria Musc: Denies: extremity swelling Torres/Lymph: Denies: easy bruising or easy bleeding Medications/Allergies Home Medications ?Medication ?Instructions ?Recorded ?Confirmed ?Last Taken ?Type diabetic shoes with inserts #1 ea 02/28/21 03/31/25 Rx Blood pressure cuff and machine #1 ea 06/27/22 5 08/12/22 Rx o2 at 3L per nasal cannula #1 ea 08/11/22 03/31/25 Rx nitroglycerin 0.3 mg sublingual 0.3 mg sublingual Q5M PRN chest 10/08/22 03/31/25 Unknown Rx tablet pain #30 tabs Diabetic shoes with inserts #1 ea 04/24/23 03/31/25 Un known Rx furosemide 20 mg tablet 20 mg PO DAILY EDEMA #90 tab s 05/09/24 03/31/25 1 Day Ago Rx ~03/30/25 wheelchair #1 ea 06/02/24 03/31/25 Unkn own Rx compressor, for nebulizer #1 ea 06/07/24 03/31/25 Unkn own Rx nebulizer accessories #1 ea 06/07/24 03/31/25 Unkn own 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 sensor (Dexcom G7 #3 ea 06/20/24 5 Unknown Rx Sensor device) 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,strategic consultant,cont #1 ea 06/20/24 03/31/25 Un known Rx (Dexcom G7 Supervisor Veneer) cholecalciferol (vitamin D3) 125 125 mcg PO DAILY 1101/2103/31/25 1 Day Ago History mcg (5,000 unit) tablet ~03/30/25 apixaban 5 mg tablet (Eliquis) 5 mg PO BID #180 tabs 0 11/03/24 03/31/25 1 Day Ago Rx ~03/30/25 atorvastatin 40 mg tablet 40 mg PO DAILY #90 tabs 02/2203/31/25 1 Day Ago Rx ~03/30/25 dulaglutide 1.5 mg/0.5 mL 1.5 mg (0.5 mL) SUBCUT .week ly #6 11/03/24 03/31/25 1 Day Ago Rx subcutaneous pen injector mL ~03/30/25 (Trulicity) famotidine 40 mg tablet 40 mg PO BID #90 tabs 03/31/25 1 Day Ago Rx ~03/30/25 fenofibrate 160 mg tablet 160 mg PO DAILY #90 tabs 02/2203/31/25 1 Day Ago Rx ~03/30/25 metolazone 2.5 mg tablet See Rx Instructions .Route 0 11/03/24 03/31/25 1 Day Ago Rx .COMPLEX #90 tabs ~03/30/25 dapagliflozin propanediol 10 mg 10 mg PO DAILY 5 03/31/25 1 Day Ago History tablet (Farxiga) ~03/30/25 tamsulosin 0.4 mg capsule 0.4 mg PO BEDTIME 02/23/25 0 03/31/25 03/30/25 History levetiracetam 500 mg tablet 500 mg PO QDAY #30 tabs 03/31/25 1 Day Ago Rx ~03/30/25 sildenafil 50 mg tablet (Viagra) 50 mg PO DAILY PRN se xual activity 02/24/25 03/31/25 03/30/25 Rx #10 tabs aspirin 81 mg tablet,delayed 81 mg PO DAILY #90 tabs 0 02/28/25 03/31/25 1 Day Ago Rx release ~03/30/25 allopurinol 100 mg tablet 50 mg (1/2 x 100 mg) PO .MICKI RY 03/24/25 03/31/25 1 Day Ago Rx OTHER DAY #30 tabs ~03/30/25 Allergies Allergy/AdvReac Type Severity Reaction Status Date / Time fentanyl Allergy Unknown Verified 03/30/25 14:02 lisinopril AdvReac Mild Coughing Verified 03/30/25 14:02 Current Medications Generic Name Dose Route Start Last Admin Trade Name Freq PRN Reason Stop Dose Admin Norepinephrine Bitartrate 4 mg in 250 mls @ 0 mls/hr 03/30/25 17:45 03/31/25 04:00 Levophed IV 1 mcg/min .Q0M JOSÉ 3.75 mls/hr Protocol Titration Per Protocol Sodium Chloride 1,000 mls @ 100 mls/hr 03/30/25 17:45 03/31/25 09:27 Sodium Chloride 0.9% IV Not Given .Q10H JOSÉ Insulin Human Lispro 0 unit 03/31/25 08:00 03/31/25 12:29 Insulin Lispro 100 Unit/1 Ml SUBCUT Not Given TIDWM JOSÉ Protocol Levetiracetam 500 mg 03/31/25 09:00 03/31/25 09:28 Levetiracetam 500 Mg Tablet PO 500 mg DAILY JOSÉ Administration PFSH Acute 2 PFSH: Medical History Atrial fibrillation Rotator cuff arthropathy of right shoulder Osteoarthritis of shoulders, bilateral Bilateral shoulder pain Pulmonary HTN Nonischemic cardiomyopathy Mixed hyperlipidemia Nonrheumatic aortic (valve) stenosis HTN (hypertension) Severe obstructive sleep apnea Nocturnal hypoxemia [place] (obstructive sleep apnea) ARUNA (acute kidney injury) Bilateral foot pain Generalized weakness Acute encephalopathy Generalized muscle weakness Acute alteration in mental status Confusion Epistaxis Anticoagulation adequate with anticoagulant therapy Transaminitis Daytime sleepiness Enrolled in chronic care management Gout attack Acute and chronic respiratory failure with hypoxia Ascending aortic aneurysm Congestive heart failure Pneumonia Acute and chronic respiratory failure with hypoxia Erectile dysfunction Type 2 diabetes mellitus Chronic kidney disease Anemia Diarrhea Diabetic foot Idiopathic gout, right ankle and foot DDD (degenerative disc disease), lumbosacral Surgical History Hx of arthroscopy of left knee Hx of tooth extraction History of cardiac pacemaker Hx of heart surgery (2017) Aortic valve replacement and aneurysm repair Family History Mother CAD (coronary artery disease) Brother Cancer Other Diabetes mellitus, type 2 Hypertension Denies family history of Diabetes Clotting disorder Dementia Chronic kidney disease (CKD) Suicide Anesthesia complication Bleeding disorder Lung disease Stroke Social History Smoking and tobacco/nicotine status: never used tobacco/nicotine Second hand smoke exposure: No Alcohol intake: current Alcohol intake frequency: 3 or more drinks per day Alcohol type: beer Substance/Drug Use: never Additional social history: 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 He is in the midst of a divorce from his Anisha to whom he has been 15 years but for now he is still reporting her as next of kin. He wants full CODE STATUS Adopted: No Caregiver/support person: Yes (spouse) Lives independently: Yes Household members: spouse and children Housing: House Marital status: Number of children: 3 Number of grandchildren: 3 Highest education level completed: 6th Grade service: No Current occupational status: disabled Pets and animals: Yes Current gender identity: Male Special pola needs: No Agree to transfusion: Yes Vitals/I&O/Wt Last Vital Signs Temp 97.8 F 03/31/25 04:00 Pulse 70 03/31/25 12:30 Resp 20 H 03/31/25 12:00 BP 93/57 03/31/25 12:30 Pulse Ox 98 03/31/25 12:30 O2 Del Method Room Air 03/31/25 02:00 03/30/25 03/31/25 03/31/25 22:59 06:59 14:59 Intake Total 1401.667 / 1681.042 279.375 / 1681.042 Output Total 500 / 2800 2300 / 2800 Balance 901.667 / -1118.958 -2020.625 / -1118.958 Weight last 48 hrs Weight 245 lb Weight 244 lb 11.2 oz Weight 235 lb Physical Exam 2 Const: COMMON NORMALS: no acute distress and patient oriented x3 GENERAL APPEARANCE: cooperative and comfortable ORIENTATION/CONSCIOUSNESS: Yes awake, Yes oriented to person, Yes oriented to place and Yes oriented to time Chest: COMMONS NORMALS: normal inspection of the chest and normal palpation of entire chest wall CHEST: Yes Symmetrical chest wall rise Resp: COMMON NORMALS: normal respiratory effort, No retractions, No use of accessory muscles and clear to auscultation bilaterally EFFORT & INSPECTION: Yes symmetric chest movement AUSCULTATION: clear to auscultation bilaterally Cardio: COMMON NORMALS: regular rate, regular rhythm, S1 normal heart sound present, S2 normal heart sound present, No gallops present (Cardio), No clicks present (Cardio), No murmurs present (Cardio) and No rub (Cardio) RATE: r egular rate RHYTHM: regular rhythm HEART SOUNDS: S1 normal heart sound present and S2 normal heart sound present PERIPHERAL PULSES: radial pulses present Extremity: COMMON NORMALS: no pedal edema Neuro: COMMON NORMALS: patient oriented x3 and moves all extremities S ENSORIUM/ORIENTATION: Yes oriented to person, Yes oriented to place and Yes oriented to time Data 03/31/25 04:39 03/31/25 04:39 Micro: Microbiology 03/30/25 17:19 Blood Culture - Preliminary Blood SPECIMEN COLLECTED 03/30/25 17:16 Blood Culture - Preliminary Blood SPECIMEN COLLECTED A&P Assessment and plan 1. Hx of heart surgery: 2. Presence of permanent cardiac pacemaker: 3. Systolic congestive heart failure with reduced left ventricular function, NYHA class 4: Plan: No vegetation present on the bioprosthetic aortic valve. Will reevaluate moderate aortic stenosis by echocardiogram in a few months. Follow-up with Dr. Scott 06/01/25 as scheduled. Can discharge home. PDMP PDMP Reviewed: Not Reviewed Coding Level of Care Code Acute Code for Chg Fwd Diagnoses Hx of heart surgery Z98.890 Presence of permanent cardiac pacemaker Z95.0 Systolic congestive heart failure with reduced left ventricular function, NYHA class 4 I50.20
--- NOTE | 2025-03-31 10:49 | PC.SOCIAL ---
IMM Update pg 2 of IMM Updated and reviewed w/ patient. Copy provided and copy dated, initialed and placed in chart.
--- NOTE | 2025-03-31 11:34 | ANES.PREANE2 ---
Pre-Anesthetic Assessment Height/Weight: Height 1.75 m Weight 111.13 kg Temp Pulse Resp BP Pulse Ox O2 Del Method 97.8 F 70 21 H 107/77 94 Room Air 03/31/25 04:00 03/31/25 10:00 03/31/25 10:00 03/31/25 10:00 03/31/25 10:00 03/31/25 02:00 JONATHAN Familial anesthetic complications: None Was Beta Ori taken within 24 hours: N/A Was Clonidine taken within 24 hours: N/A Last intake: > 8 hrs Social Alcohol and Tobacco Exam alert, oriented x 3, clear to auscultation bilaterally and regular rate & rhythm Pulmonary Chronic Obstructive Pulmonary Disease and Sleep Apnea CV/HEM Atrial Fibrillation and Congestive Heart Failure PULM HTN HX PE HX AV valve replacement Pacemaker CONCLUSIONS LV systolic function is severely reduced with EF of 20-25%. Biatrial enlargement. Mild to moderate mitral regurgitation. Bioprosthetic aortic valve has severe stenosis. Bioprosthetic aortic valve has echogenic structure. Can not rule out vegetation Mild tricuspid regurgitation Ascending aorta is dilated with diameter of 5.2 cm. Chronic Renal Insufficiency GI Gastroesophageal Reflux Disease Metabolic Diabetes Mellitus, Hyperlipidemia and Morbid Obesity Neuropsych Cerebrovascular Accident and Seizure Anesthetic Plan ASA status: 4 Anesthesia: MAC Risk of > 500 ml blood loss (7ml/kg in children): No Medications/Allergies Home Medications ?Medication ?Instructions ?Recorded ?Confirmed ?Last Taken ?Type diabetic shoes with inserts #1 ea 02/28/21 03/31/25 08/12/22 Rx Blood pressure cuff and machine #1 ea 06/27/22 03/31/25 08/12/22 Rx o2 at 3L per nasal cannula #1 ea 08/11/22 03/31/25 08/12/22 Rx nitroglycerin 0.3 mg sublingual 0.3 mg sublingual Q5M PRN chest 10/08/22 03/31/25 Unknown Rx tablet pain #30 tabs Diabetic shoes with inserts #1 ea 04/24/23 03/31/25 Unknown Rx furosemide 20 mg tablet 20 mg PO DAILY EDEMA #90 tabs 05/09/24 03/31/25 1 Day Ago Rx ~03/30/25 wheelchair #1 ea 06/02/24 03/31/25 Unknown Rx compressor, for nebulizer #1 ea 06/07/24 03/31/25 Unknown Rx nebulizer accessories #1 ea 06/07/24 03/31/25 Unknown 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 sensor (Dexcom G7 #3 ea 06/20/24 03/31/25 Unknown Rx Sensor device) 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,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,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 #1 ea 06/20/24 03/31/25 Unknown Rx (Dexcom G7 Clam Picker) cholecalciferol (vitamin D3) 125 125 mcg PO DAILY 07/05/24 03/31/25 1 Day Ago History mcg (5,000 unit) tablet ~03/30/25 apixaban 5 mg tablet (Eliquis) 5 mg PO BID #180 tabs 11/03/24 03/31/25 1 Day Ago Rx ~03/30/25 atorvastatin 40 mg tablet 40 mg PO DAILY #90 tabs 11/03/24 03/31/25 1 Day Ago Rx ~03/30/25 dulaglutide 1.5 mg/0.5 mL 1.5 mg (0.5 mL) SUBCUT .weekly #6 11/03/24 03/31/25 1 Day Ago Rx subcutaneous pen injector mL ~03/30/25 (Trulicity) famotidine 40 mg tablet 40 mg PO BID #90 tabs 11/03/24 03/31/25 1 Day Ago Rx ~03/30/25 fenofibrate 160 mg tablet 160 mg PO DAILY #90 tabs 11/03/24 03/31/25 1 Day Ago Rx ~03/30/25 metolazone 2.5 mg tablet See Rx Instructions .Route 11/03/24 03/31/25 1 Day Ago Rx .COMPLEX #90 tabs ~03/30/25 dapagliflozin propanediol 10 mg 10 mg PO DAILY 02/23/25 03/31/25 1 Day Ago History tablet (Farxiga) ~03/30/25 tamsulosin 0.4 mg capsule 0.4 mg PO BEDTIME 02/23/25 03/31/25 03/30/25 History levetiracetam 500 mg tablet 500 mg PO QDAY #30 tabs 02/24/25 03/31/25 1 Day Ago Rx ~03/30/25 sildenafil 50 mg tablet (Viagra) 50 mg PO DAILY PRN sexual activity 02/24/25 03/31/25 03/30/25 Rx #10 tabs aspirin 81 mg tablet,delayed 81 mg PO DAILY #90 tabs 02/28/25 03/31/25 1 Day Ago Rx release ~03/30/25 allopurinol 100 mg tablet 50 mg (1/2 x 100 mg) PO .EVERY 03/24/25 03/31/25 1 Day Ago Rx OTHER DAY #30 tabs ~03/30/25 Allergies Allergy/AdvReac Type Severity Reaction Status Date / Time fentanyl Allergy Unknown Verified 03/30/25 14:02 lisinopril AdvReac Mild Coughing Verified 03/30/25 14:02 Current Medications Generic Name Dose Route Start Last Admin Trade Name Freq PRN Reason Stop Dose Admin Norepinephrine Bitartrate 4 mg in 250 mls @ 0 mls/hr 03/30/25 17:45 03/31/25 04:00 Levophed IV 1 mcg/min .Q0M JOSÉ 3.75 mls/hr Protocol Titration Per Protocol Sodium Chloride 1,000 mls @ 100 mls/hr 03/30/25 17:45 03/31/25 09:27 Sodium Chloride 0.9% IV Not Given .Q10H [facility] Insulin Human Lispro 0 unit 03/31/25 08:00 03/31/25 08:04 Insulin Lispro 100 Unit/1 Ml SUBCUT Not Given TIDWM [facility] Protocol Levetiracetam 500 mg 03/31/25 09:00 03/31/25 09:28 Levetiracetam 500 Mg Tablet PO 500 mg DAILY JOSÉ Administration PFSH Anesthesia Medical History Atrial fibrillation Rotator cuff arthropathy of right shoulder Osteoarthritis of shoulders, bilateral Bilateral shoulder pain Pulmonary HTN Nonischemic cardiomyopathy Mixed hyperlipidemia Nonrheumatic aortic (valve) stenosis HTN (hypertension) Severe obstructive sleep apnea Nocturnal hypoxemia [place] (obstructive sleep apnea) ARUNA (acute kidney injury) Bilateral foot pain Generalized weakness Acute encephalopathy Generalized muscle weakness Acute alteration in mental status Confusion Epistaxis Anticoagulation adequate with anticoagulant therapy Transaminitis Daytime sleepiness Enrolled in chronic care management Gout attack Acute and chronic respiratory failure with hypoxia Ascending aortic aneurysm Congestive heart failure Pneumonia Acute and chronic respiratory failure with hypoxia Erectile dysfunction Type 2 diabetes mellitus Chronic kidney disease Anemia Diarrhea Diabetic foot Idiopathic gout, right ankle and foot DDD (degenerative disc disease), lumbosacral Surgical History Hx of arthroscopy of left knee Hx of tooth extraction History of cardiac pacemaker Hx of heart surgery (2017) Aortic valve replacement and aneurysm repair Family History Mother CAD (coronary artery disease) Brother Cancer Other Diabetes mellitus, type 2 Hypertension Denies family history of Diabetes Clotting disorder Dementia Chronic kidney disease (CKD) Suicide Anesthesia complication Bleeding disorder Lung disease Stroke Social History Smoking and tobacco/nicotine status: never used tobacco/nicotine Second hand smoke exposure: No Alcohol intake: current Alcohol intake frequency: 3 or more drinks per day Alcohol type: beer Substance/Drug Use: never Additional social history: He worked at a [employer], [employer] and [employer] and 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 He is in the midst of a divorce from his Anisha to whom he has been 15 years but for now he is still reporting her as next of kin. He wants full CODE STATUS Adopted: No Caregiver/support person: Yes (spouse) Lives independently: Yes Household members: spouse and children Housing: House Marital status: Number of children: 3 Number of grandchildren: 3 Highest education level completed: 6th Grade service: No Current occupational status: disabled Pets and animals: Yes Current gender identity: Male Special pola needs: No Agree to transfusion: Yes Data Anesthesia 03/31/25 04:39 03/31/25 04:39 Short CBC 03/30/25 03/31/25 Range/Units 16:38 04:39 WBC 4.04 6.77 (3.29-11.43) 10^3/uL Hgb 6.70 L 7.70 L (11.27-16.99) g/dL Hct 21.7 L 24.4 L (37-53) % MCV 111.3 H 106.6 H (82-101) fl Plt Count 141 L 135 L (157-399) 10^3/cmm Neut % (Auto) 66.9 74.6 % Neut # (Auto) 2.70 5.05 (1.8-7.7) 10^3/uL BMP 03/30/25 03/31/25 16:38 04:39 Sodium 137 140 Potassium 4.5 4.2 Chloride 104 108 H Carbon Dioxide 20 L 19 L BUN 93 H* 81 H Creatinine 3.7 H 2.8 H Glucose 131 H 99 Calcium 7.9 L 8.1 L Liver Function 03/30/25 Range/Units 16:38 Total Bilirubin 0.3 (0.15-1.2) mg/dL AST 23 (0-40) U/L ALT 9 (0-41) U/L Alkaline Phosphatase 25 L (40-130) U/L Albumin 3.2 L (3.5-5.2) g/dL Urine 03/30/25 Range/Units 18:37 Urine Color Yellow (Yellow) Urine Appearance Clear (CLEAR) Urine pH 5.0 (5-7) Ur Specific Seale 1.011 (1.005-1.030) Urine Protein Negative (Negative) Urine Glucose (UA) 1+ H (Normal) Urine Ketones Negative (Negative) Urine Nitrate Negative (Negative) Urine Bilirubin Negative (Negative) Ur Leukocyte Esterase Negative (Negative) Urine RBC 0-2 (0-2) /hpf Urine WBC 0-5 (0-5) /hpf Blood Bank 03/30/25 17:16 Blood Type O Positive Rho(D) Type Rh positive Antibody Screen Negative Microbiology 03/30/25 17:19 Blood Culture - Preliminary Blood SPECIMEN COLLECTED 03/30/25 17:16 Blood Culture - Preliminary Blood SPECIMEN COLLECTED Cardiac Studies: Echocardiogram 02/23/25 Echocardiogram Ultrasound 12/09/19 Sestamibi Stress Test (Cardiology) 09/22/22
--- NOTE | 2025-03-31 11:58 | USCV_ITS ---
Pawan Marcum Age: 69 Gender: M : 1955 Exam Date: 03/31/2025 12:04 Ordering Phys: Elaine Gaytan Technologist: [place] [facility] [place]: ? veg BP: 114 / 67 HR: Rhythm: Sinus Technical Quality: Adequate MEASUREMENTS (Male / Female) Normal Values FINDINGS Left Ventricle LV systolic function is moderately reduced. Moderate global hypokinesis. Right Ventricle Normal in size and fucntion Right Atrium Grossly normal Left Atrium Dilated. No left atrial appendage thrombus seen. Mitral Valve Structurally normal mitral valve. Mild mitral regurgitation. No significant vegetation seen Aortic Valve Bioprosthetic aortic valve. No vegetation seen. By planimetry, aortic valve area was 1.1 cm2. Moderate aortic stenosis. Tricuspid Valve Grossly normal Pulmonic Valve Not well visualized Pericardium Normal Aorta Aortic root is dilated with diameter of 5.9 cm. IVC Not well visualized CONCLUSIONS LV systolic function is moderately reduced. Left atrial dilation. No left atrial appendage thrombus seen. Mild mitral regurgitation Bioprosthetic aortic valve. No vegetation seen. By planimetry aortic valve area is 1.1 cm squared meter and consistent with moderate aortic stenosis. Aortic root is dilated with a diameter of 5.9 cm Sagar Newell MD (Electronically Signed) Final Date: 31 March 2025 14:49 S
--- NOTE | 2025-03-31 11:58 | W.PM.OPSUD ---
Surgery/Procedure H&P Update DATE OF PROCEDURE: March 31, 2025 DATE H&P PERFORMED: 03/31/25 H&P UPDATE INFORMATION: I have reviewed H&P completed within last 30 days, I have examined patient prior to procedure and No changes to prior documentation PREOP DIAGNOSIS: Rule out endocarditis/ Bacteremia PRIMARY INDICATION FOR PROCEDURE: Rule out endocarditis/ Bacteremia PLANNED PROCEDURE: Transesophageal echocardiogram Anesthesia team available for JONATHAN OTHER PERTINENT EXAM FINDINGS: Anesthesia team available for JONATHAN
--- NOTE | 2025-03-31 12:13 | PC.NURSE ---
JONATHAN 1215 start time end [id number] patient tolerated well
--- NOTE | 2025-03-31 13:15 | P.PN_ITS ---
Subjective 2 Subjective: planning JONATHAN for today, no new issues. Vitals/I&O/Wt Last Vital Signs Temp 97.8 F 03/31/25 04:00 Pulse 70 03/31/25 12:30 Resp 20 H 03/31/25 12:00 BP 93/57 03/31/25 12:30 Pulse Ox 98 03/31/25 12:30 O2 Del Method Room Air 03/31/25 02:00 03/30/25 03/31/25 03/31/25 22:59 06:59 14:59 Intake Total 1401.667 / 1401.667 279.375 / 1681.042 Output Total 500 / 500 2300 / 2800 Balance 901.667 / 901.667 -2020.625 / -1118.958 Weight last 48 hrs Weight 111.13 kg Weight 110.994 kg Weight 106.594 kg Physical Exam 2 Const: COMMON NORMALS: patient oriented x3; apparent distress and negative for average body habitus HENMT: COMMON NORMALS: not normocephalic and head/scalp not atraumatic HEAD & SCALP: not normocephalic and not atraumatic Eye: COMMON NORMALS: negative for Equal, round and reactive pupils present and negative for EOMs intact bilaterally PUPIL: No Equal, round and reactive pupils present Neck/C-Spine: COMMON NORMALS: negative for full ROM, negative for no lymphadenopathy and negative for no JVD Lymph: LYMPHATIC: no lymphadenopathy noted and no lymphedema noted Chest: COMMONS NORMALS: negative for normal inspection of the chest and negative for normal palpation of entire chest wall Resp: COMMON NORMALS: negative for normal respiratory effort, negative for No retractions and negative for clear to auscultation bilaterally AUSCULTATION: not clear to auscultation bilaterally Cardio: COMMON NORMALS: regular rate; negative for no JVD and negative for regular rhythm RATE: regular rate R HYTHM: abnormal rhythm HEART SOUNDS: Murmur heart sound present (CHEMO) GI: COMMON NORMALS: Soft to palpation, non-tender, No hepatosplenomegaly present and no masses PALPATION: Yes Soft to palpation and Yes No hepatosplenomegaly present Extremity: GENERAL: Yes edema (BL LE) Neuro: COMMON NORMALS: patient oriented x3 and CN's II-XII intact bilaterally Data 03/31/25 04:39 03/31/25 04:39 Micro: Microbiology 03/30/25 17:19 Blood Culture - Preliminary Blood SPECIMEN COLLECTED 03/30/25 17:16 Blood Culture - Preliminary Blood SPECIMEN COLLECTED A&P Assessment and plan 1. Hypotension: 2. Endocarditis: 3. Ascending aortic aneurysm: 4. Aortic stenosis: 5. Streptococcal bacteremia: Plan: 69 year old male presenting with severe anemia, hypotension, recent bacteremia concerning for endocarditis. Recent bacteremia - strep bovis bacteremia 4/4 blood cultures previously - patient left AMA on that visit (02/24), refusing JONATHAN and IV abx - he was given 10 day course of linezolid per ID as a stop gap, which he says he has completed - he has not followed up with outpatient ID visits as planned. - he presents now for ongoing evaluation, discussed with cardiology, JONATHAN planned for today, further medical decision making based on results. Hypotension PPM in place - started on levophed in ER - with severe , he will be sensitive to low BP HFrEF - hold anti-hypertensives for low BP in setting of - unclear if he will tolerate GDMT with low BP. Severe of bioprosthetic AV ascending aortic aneurysm 5.2 cm - will need to follow up with cardiothoracic surgery as OP to eval for timing of AVR and aneurysm repair once infection concerns are resolved H/O PE - hold eliquis for now Severe anemia H/O JOLEEN - perhaps 2/2 prosthetic valve, on eliquis - iron levels low in Aug, currently 112, in normal range. - no active bleeding - getting one unit in ER - hold home iron supplement for now ARUNA - cont. IV NS at 100 ml/hr DMII - hold home antidiabetics - SSI H/O seizures - cont. keppra Sleep apnea - CPAP Diet: HH, NPO after midnight PPx: hold AC for procedure Disposition - JONATHAN planned for today, further medical decision making based on results. PDMP PDMP Reviewed: Not Reviewed Attestations 2 Medical Necessity Statement*: Anticipate > 2 midnights for bacteremia concerning for endocarditis, , hypotension. Time Spent in Patient Care: 16 - 35 minutes (>than 50% of time sp ent in counselling and/or direct pt care on unit) . Coding Level of Care Code Acute Code for [facility] Fwd Diagnoses Hypotension I95.9 Endocarditis I38 Ascending aortic aneurysm I71.21 Aortic stenosis I35.0 Streptococcal bacteremia R78.81; B95.5
--- NOTE | 2025-03-31 14:15 | P.DS_ITS ---
Discharge Providers Date of Admission: 03/30/25 17:34 Date of Discharge: March 31, 2025 Attending Provider at Admission: Maicol Marion MD Attending Provider at Discharge: Maicol Marion MD Consults: Cardiology Primary Care Provider: BELLA Bahena Diagnoses at Discharge Discharge Diagnosis 1. Hx of heart surgery: 2. Presence of permanent cardiac pacemaker: 3. Systolic congestive heart failure with reduced left ventricular function, NYHA class 4: Reason for Visit Reason for Visit: Dr Schuler Needs Blood and fluid Brief History: 69 year old male presenting with severe anemia, hypotension, recent bacteremia concerning for endocarditis. Hospital Course Hospital Course Recent bacteremia - strep bovis bacteremia / blood cultures previously - patient left AMA on that visit (02/24), refusing JONATHAN and IV abx - he was given 10 day course of linezolid per ID as a stop gap, which he says he has completed - he has not followed up with outpatient ID visits as planned. - he presents now for ongoing evaluation, discussed with cardiology - JONATHAN complete: no evidence of vegetation. Monitor off abx. Hypotension PPM in place - started on levophed in ER, wean to off. - with severe , he will be sensitive to low BP HFrEF - hold anti-hypertensives for low BP in setting of - unable to tolerate GDMT with hypotension. Severe of bioprosthetic AV ascending aortic aneurysm 5.2 cm - will need to follow up with cardiothoracic surgery as OP to eval for timing of AVR and aneurysm repair once infection concerns are resolved - per cardiology, this appears less severe on JONATHAN. Follow up with surgeon as planned to plan for eventual replacement of valve. H/O PE - hold eliquis for now, can restart on D/C Severe anemia H/O JOLEEN - perhaps 2/2 prosthetic valve, on eliquis - iron levels low in Aug, currently 112, in normal range. - no active bleeding - getting one unit in ER - hold home iron supplement for now, restart on D/C ARUNA - cont. IV NS at 100 ml/hr DMII - hold home antidiabetics - SSI H/O seizures - cont. keppra Sleep apnea - CPAP Diet: HH, NPO after midnight PPx: hold AC for procedure Disposition - JONATHAN complete, no signs of vegetation. - Discharge planning for today. - follow up with surgery as outpatient for further discussion of AVR of bioprosthetic valve. Discharge Data Studies Completed and Pending Completed Studies During Hospitalization Category Date Time Status XR chest 1V portable [id number] Stat Exams 03/30/25 16:24 Completed Pending at discharge Category Date Time Status BMP [Basic Metabolic Panel] AM LABS Lab 04/01/25 04:00 Ordered Blood Culture Stat Lab 03/30/25 17:19 Results CBC Auto Diff [Complete Blood Count w/Auto] AM LABS Lab 04/01/25 04:00 Ordered CV. echo transesophageal [id number] Routine Ultrasound 03/31/25 11:58 Taken Radiology Impressions Chest X-Ray 03/30/25 16:24 IMPRESSION: 1. Unchanged moderate cardiomegaly. 2. No superimposed acute disease. Laboratory Results WBC 6.77 10^3/uL (3.29-11.43) 03/31/25 04:39 RBC 2.29 10^6/uL (3.85-5.65) L 03/31/25 04:39 Hgb 7.70 g/dL (11.27-16.99) L 03/31/25 04:39 Hct 24.4 % (37-53) L 03/31/25 04:39 MCV 106.6 fl (82-101) H 03/31/25 04:39 MCH 33.6 pg (27-33) H 03/31/25 04:39 MCHC 31.6 g/dL (30-55) 03/31/25 04:39 RDW 19.3 % (12.1-15.1) H 03/31/25 04:39 Plt Count 135 10^3/cmm (157-399) L 03/31/25 04:39 MPV 10.1 fL (7.4-10.4) 03/31/25 04:39 Neut % (Auto) 74.6 % 03/31/25 04:39 Lymph % (Auto) 14.9 % 03/31/25 04:39 [place] % (Auto) 8.4 % 03/31/25 04:39 Eos % (Auto) 1.2 % 03/31/25 04:39 Baso % (Auto) 0.3 % 03/31/25 04:39 Neut # (Auto) 5.05 10^3/uL (1.8-7.7) 03/31/25 04:39 Lymph # (Auto) 1.0 10^3/uL (0.8-4.8) 03/31/25 04:39 [place] # (Auto) 0.6 10^3/uL (0.2-0.9) 03/31/25 04:39 Eos # (Auto) 0.1 10^3/uL (0.0-0.8) 03/31/25 04:39 Baso # (Auto) 0.0 10^3/uL (0.0-0.1) 03/31/25 04:39 Nucleated RBC % (auto) 0.3 % 03/31/25 04:39 Nucleated RBCs # 0.0 /100WBC 03/31/25 04:39 Sodium 140 mmol/L (136-145) 03/31/25 04:39 Potassium 4.2 mmol/L (3.5-5.1) 03/31/25 04:39 Chloride 108 mmol/L (98-107) H 03/31/25 04:39 Carbon Dioxide 19 mmol/L (22-29) L 03/31/25 04:39 Anion Gap 17.2 (5-19) 03/31/25 04:39 BUN 81 mg/dL (8-23) H 03/31/25 04:39 Creatinine 2.8 mg/dL (0.7-1.2) H 03/31/25 04:39 GFR Calculation 22.7 mL/min (90-130) L 03/31/25 04:39 Glucose 99 mg/dL (65-115) 03/31/25 04:39 POC Glucose 94 mg/dL (70-110) 03/31/25 12:16 Calculated Osmolality 314 mOsm/kg (285-295) H 03/31/25 04:39 Lactic Acid 0.6 mmol/L (0.5-2.2) 03/30/25 17:16 Calcium 8.1 mg/dL (8.5-10.5) L 03/31/25 04:39 Iron 112 ug/dL (59-158) 03/30/25 16:38 Iron Cancelled 03/30/25 16:38 TIBC 268 mcg/dl 03/30/25 16:38 % Saturation 41.7 % (20-50) 03/30/25 16:38 Unsat Iron Binding 156 ug/dL (112-347) 03/30/25 16:38 Ferritin 365 ng/mL (30-400) 03/30/25 16:38 Ferritin Cancelled 03/30/25 16:38 Total Bilirubin 0.3 mg/dL (0.15-1.2) 03/30/25 16:38 AST 23 U/L (0-40) 03/30/25 16:38 ALT 9 U/L (0-41) 03/30/25 16:38 Alkaline Phosphatase 25 U/L (40-130) L 03/30/25 16:38 Total Protein 5.9 g/dL (6.6-8.7) L 03/30/25 16:38 Albumin 3.2 g/dL (3.5-5.2) L 03/30/25 16:38 Globulin 2.7 g/dL (1.3-4.6) 03/30/25 16:38 Urine Color Yellow (Yellow) 03/30/25 18:37 Urine Appearance Clear (CLEAR) 03/30/25 18:37 Urine pH 5.0 (5-7) 03/30/25 18:37 Ur Specific [place] 1.011 (1.005-1.030) 03/30/25 18:37 Urine Protein Negative (Negative) 03/30/25 18:37 Urine Glucose (UA) 1+ (Normal) H 03/30/25 18:37 Urine Ketones Negative (Negative) 03/30/25 18:37 Urine Blood Negative (Negative) 03/30/25 18:37 Urine Nitrate Negative (Negative) 03/30/25 18:37 Urine Bilirubin Negative (Negative) 03/30/25 18:37 Urine Urobilinogen 0.2 mg/dL (Negative) 03/30/25 18:37 Ur Leukocyte Esterase Negative (Negative) 03/30/25 18:37 Urine RBC 0-2 /hpf (0-2) 03/30/25 18:37 Urine WBC 0-5 /hpf (0-5) 03/30/25 18:37 Ur Squamous Epith Cells 0-5 /hpf (0-5) 03/30/25 18:37 Amorphous Sediment Not Reportable 03/30/25 18:37 Urine Bacteria None seen /hpf (NONE) 03/30/25 18:37 Hyaline Casts 2.87 /lpf 03/30/25 18:37 Blood Type O Positive 03/30/25 17:16 Rho(D) Type Rh positive 03/30/25 17:16 Antibody Screen Negative 03/30/25 17:16 Crossmatch See Detail 03/30/25 17:16 Vitals Last Vital Signs Temp 97.8 F 03/31/25 04:00 Pulse 70 03/31/25 12:30 Resp 20 H 03/31/25 12:00 BP 93/57 03/31/25 12:30 Pulse Ox 98 03/31/25 12:30 O2 Del Method Room Air 03/31/25 02:00 Discharge Plan Discharge Patient Disposition: Home Condition: Stable Prescriptions: Continued (DME) diabetic shoes with inserts See Rx Instructions .Route .MEDSUPPLY Qty: 1 0RF Rx Instructions: As directed (DME) wheelchair lightweight See Rx Instructions .Route .MEDSUPPLY Qty: 1 0RF Rx Instructions: Lightweight wheelchair for in home use fenofibrate 160 mg tablet 160 mg PO DAILY Qty: 90 1RF atorvastatin 40 mg tablet 40 mg PO DAILY Qty: 90 1RF Eliquis 5 mg tablet 5 mg PO BID Qty: 180 1RF famotidine 40 mg tablet 40 mg PO BID Qty: 90 1RF Trulicity 1.5 mg/0.5 mL pen injector 1.5 mg SUBCUT .weekly Qty: 6 1RF Rx Instructions: on Thursday (DME) o2 at 3L per nasal cannula See Rx Instructions .Route .MEDSUPPLY Qty: 1 0RF Rx Instructions: Room air O2 sats were 83. After 3L O2 went up to 90's however when walking still at 89 on 3 L O2. Home (company) nitroglycerin 0.3 mg tablet, sublingual 0.3 mg sublingual Q5M PRN (Reason: chest pain) Qty: 30 0RF Rx Instructions: do not exceed 3 doses per episode (DME) Diabetic shoes with inserts See Rx Instructions .Route .MEDSUPPLY Qty: 1 0RF Rx Instructions: As directed cholecalciferol (vitamin D3) 125 mcg (5,000 unit) tablet 125 mcg PO DAILY (DME) nebulizer accessories Kit See Rx Instructions .Route Qty: 1 0RF Rx Instructions: As directed (DME) compressor, for nebulizer Device See Rx Instructions .Route Qty: 1 0RF Rx Instructions: As directed (DME) Dexcom G7 Sensor Device See Rx Instructions .Route Qty: 3 5RF Rx Instructions: As directed (DME) Dexcom G7 Curriculum Designer Misc See Rx Instructions .Route Qty: 1 0RF Rx Instructions: As directed (DME) Blood pressure cuff and machine See Rx Instructions .Route .MEDSUPPLY Qty: 1 0RF Rx Instructions: As directed furosemide 20 mg tablet 20 mg PO DAILY Qty: 90 3RF metolazone 2.5 mg tablet See Rx Instructions .ROUTE .COMPLEX Qty: 90 3RF Dose Instruction: TAKE ONE TABLET BY MOUTH EVERY DAY Rx Instructions: One tablet every other day sildenafil [Viagra] 50 mg tablet 50 mg PO DAILY PRN (Reason: sexual activity) Qty: 10 2RF Rx Instructions: administer 30 minutes to 4 hours before activity DO NOT TAKE WITH NITRO levetiracetam 500 mg tablet 500 mg PO QDAY Qty: 30 2RF aspirin 81 mg tablet,delayed release (DR/EC) 81 mg PO DAILY Qty: 90 1RF allopurinol 100 mg tablet 50 mg PO .EVERY OTHER DAY Qty: 30 0RF dapagliflozin propanediol [Farxiga] 10 mg tablet 10 mg PO DAILY tamsulosin 0.4 mg capsule 0.4 mg PO BEDTIME Discharge Order = DC NOW: Discharge Order (Routine); Ordered 03/31/25 Ordered By: Maicol Marion Referrals: Lora Buchanan FNP-C [Primary Care Provider, [facility]] Discharge Diet: Usual diet Discharge Activity: Resume usual activity Patient Instructions: Opioid Safety, Patient Portal & Yimi Instructions Discharge Attestations Time Spent in Discharge Care*: greater than 30 min Quality Metrics Clinical Quality Measures [ No reported AMI, CVA or VTE this stay] Coding Level of Care Code Acute Code for Chg Fwd Diagnoses Hx of heart surgery Z98.890 Presence of permanent cardiac pacemaker Z95.0 Systolic congestive heart failure with reduced left ventricular function, NYHA class 4 I50.20
--- NOTE | 2025-03-31 14:34 | PC.NURSE ---
All D/C info educated, patient would not wait for a f/u appointment to be made instructed to call for an appointment. out of unit family on the way to cigar pack[facility] and picker. IVs dc
== END 2025-03-31 14:37 | disposition home or self-care (01) | DRG 315 ==
LOC: ER 18:09 → ICU 18:19
PROVIDERS: Admitting Provider Internal Medicine; Emergency Provider Family Medicine; PCP Nurse Practitioner Family; Visit Provider Internal Medicine
DX: I95.89 Other hypotension (principal); I50.22 Chronic systolic (congestive) heart failure; N17.9 Acute kidney failure, unspecified; D64.9 Anemia, unspecified; F10.20 Alcohol dependence, uncomplicated; I71.21 Aneurysm of the ascending aorta, without rupture; E11.9 Type 2 diabetes mellitus without complications; I11.0 Hypertensive heart disease with heart failure; G47.30 Sleep apnea, unspecified; I25.5 Ischemic cardiomyopathy; I27.20 Pulmonary hypertension, unspecified; I35.0 Nonrheumatic aortic (valve) stenosis; Z86.711 Personal history of pulmonary embolism; Z79.01 Long term (current) use of anticoagulants; Z79.899 Other long term (current) drug therapy; Z88.8 Allergy status to other drugs, medicaments and biological substances; Z95.0 Presence of cardiac pacemaker; Z95.2 Presence of prosthetic heart valve; Z79.82 Long term (current) use of aspirin; Z79.85 Long-term (current) use of injectable non-insulin antidiabetic drugs
CPT/HCPCS: 36415; 36416; 71045; 80048; 80053; 81001; 82728; 82962; 83540; 83550; 83605; 85025; 86850; 86900; 86920; 87040; 93005; 93312; 93320; 93325; 96365; 96366; 99285; J2704; J7030; J9999; P9016

== ENCOUNTER → 2025-04-13 07:27 | Outpatient (BNVA) | payer MEDICARE, MEDICAID, SELFPAY | PROVIDERS: PCP Nurse Practitioner Family; Visit Provider Podiatrist Foot & Ankle Surgery | DX: E11.40 Type 2 diabetes mellitus with diabetic neuropathy, unspecified (principal); L60.3 Nail dystrophy | CPT/HCPCS: 11721; 99203 ==

== ENCOUNTER → 2025-05-08 15:18 | Outpatient (BNVA) | payer MEDICARE, MEDICAID, SELFPAY | PROVIDERS: PCP Nurse Practitioner Family; Visit Provider Nurse Practitioner Family | DX: R25.2 Cramp and spasm (principal) | CPT/HCPCS: 80053; 83735 ==

== ENCOUNTER → 2025-05-15 11:11 | Outpatient (BNVA) | payer MEDICARE, MEDICAID, SELFPAY | PROVIDERS: PCP Nurse Practitioner Family; Visit Provider Internal Medicine Medical Oncology | DX: N18.9 Chronic kidney disease, unspecified (principal); D63.1 Anemia in chronic kidney disease | CPT/HCPCS: 80053; 82607; 82728; 82746; 83550; 83615; 85025; 85045 ==

== ENCOUNTER 2025-05-18 08:13 | Oncology outpatient (recurring) (ONCR) | payer MEDICARE, MEDICAID, SELFPAY ==
[2025-05-18] VITALS (11 sets, daily range): BP systolic 115–138; BP diastolic 68–86; PULSE 61–84; RESP 17–18; TEMP 36.2–36.7; O2SAT 91–97
[2025-05-18 08:42] LABS: Hematocrit 24.7 % (37-53); Hemoglobin 7.20 g/dL (11.27-16.99)
[2025-05-18] MEDS: FUROsemide 10 mg/mL SDV 2mL 20 MG IVP (11:31)
== END 2025-05-30 23:59 | disposition home or self-care (01) ==
PROVIDERS: Nurse Practitioner; PCP Nurse Practitioner Family; Visit Provider Internal Medicine Medical Oncology
DX: Z53.9 Procedure and treatment not carried out, unspecified reason (principal); N18.9 Chronic kidney disease, unspecified; D63.1 Anemia in chronic kidney disease; D64.9 Anemia, unspecified
CPT/HCPCS: 36415; 36430; 85014; 85018; 86850; 86900; 86920; 96374; 97162; 99214; J1938; J7050; J9999; P9016

== ENCOUNTER → 2025-06-05 11:05 | Outpatient (BNVA) | payer MEDICARE, MEDICAID, SELFPAY | PROVIDERS: PCP Nurse Practitioner Family; Visit Provider Nurse Practitioner Family | DX: E11.9 Type 2 diabetes mellitus without complications (principal); E11.40 Type 2 diabetes mellitus with diabetic neuropathy, unspecified; I10 Essential (primary) hypertension | CPT/HCPCS: 80053; 80061; 83036; 84443; 85025 ==

== ENCOUNTER 2025-06-08 09:35 | Emergency (ER) | payer MEDICARE, MEDICAID, SELFPAY ==
[2025-06-08 09:45] VITALS: BP 141/68; PULSE 72; RESP 20; TEMP 36.4; O2SAT 92
--- NOTE | 2025-06-08 10:04 | USCV_ITS ---
Pawan Marcum Age: 70 Gender: M : 1955 Exam Date: 06/08/2025 10:22 Ordering Phys: Zina Kessler MD Technologist: POPPY Exam Location: [facility] [place] Indication: RLE sore. Swelling HISTORY: Lower extremity swelling. PROCEDURES: Venous duplex imaging was performed in only the right lower extremity. The following venous structures were evaluated: common femoral vein, profunda vein, proximal portion of the greater saphenous vein, superficial femoral vein, and the popliteal vein. In addition, the posterior tibial and peroneal trunk were evaluated. Serial compression, augmentation maneuvers, and spectral Doppler flow evaluation were performed. FINDINGS: No evidence of DVT seen in any vessel visualized at this time. CONCLUSIONS No evidence of right lower extremity DVT. Davon Munoz MD (Electronically Signed) Final Date: 08 June 2025 13:53 S
--- NOTE | 2025-06-08 10:11 | XRR_ITS ---
PROCEDURE INFORMATION: Exam: XR Chest Exam date and time: 06/08/2025 10:57 AM Age: 70 years old Clinical indication: Cardiovascular condition or disease; Congestive heart failure (chf); Cause unknown TECHNIQUE: Imaging protocol: Radiologic exam of the chest. Views: 1 view. COMPARISON: CR XR chest 1V portable [id number] 03/30/2025 4:30 PM FINDINGS: Tubes, catheters and devices: Median sternotomy suture wires. Multilead pacemaker/defibrillator. Lungs: Unremarkable. No consolidation. Pleural spaces: Unremarkable. No pleural effusion. No pneumothorax. Heart/Mediastinum: Borderline cephalization of blood flow, minimal cardiac decompensation may be present. Vasculature: Moderate cardiomegaly and uncoiling of the thoracic aorta. Bones/joints: Unremarkable. XR/XR chest 1V portable [id number] IMPRESSION: Slight cardiac decompensation. Cardiomegaly.
--- NOTE | 2025-06-08 10:11 | ED_ITS ---
HPI - General Adult 2 General: Chief complaint: General Medical Stated complaint: Legs Swelling R leg leaking Time Seen by Provider: 06/08/25 09:48 Source: patient Mode of arrival: ambulatory Limitations: no limitations History of Present Illness: 70-year-old male has a history of conges tive heart failure states that he has had bilateral leg swelling over the last week with right leg being worse and having pain in his right leg. He states that he stopped taking his Lasix recently because he believed it was not working he denies any chest pain denies any shortness of breath denies any fever. Related Data Home Medications ?Medication ?Instructions ?Recorded ?Confirmed tamsulosin 0.4 mg capsule 0.4 mg PO BEDTIME 02/23/25 1 atorvastatin 40 mg tablet 40 mg PO QPM 06/08/25 metolazone 2.5 mg tablet 2.5 mg PO .QOD 06/08/2505/25 sacubitril 97 mg-valsartan 103 mg 1 tab PO BID 5 06/08/25 tablet (Entresto) Previous Rx's ?Medication ?Instructions ?Recorded Blood pressure cuff and machine #1 ea 06/27/22 o2 at 3L per nasal cannula #1 ea 08/11/22 nitroglycerin 0.3 mg sublingual 0.3 mg sublingual Q5M PRN chest 10/08/22 tablet pain #30 tabs Diabetic shoes with inserts #1 ea 04/24/23 furosemide 20 mg tablet 20 mg PO DAILY EDEMA #90 tab s 05/09/24 wheelchair #1 ea 06/02/24 compressor, for nebulizer #1 ea 06/07/24 nebulizer accessories #1 ea 06/07/24 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 sensor (Dexcom G7 #3 ea 06/20/24 Sensor device) 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,him assistant,cont #1 ea 06/20/24 (Dexcom G7 Infantry Operations Specialist) levetiracetam 500 mg tablet 500 mg PO QDAY #30 tabs sildenafil 50 mg tablet (Viagra) 50 mg PO DAILY PRN se xual activity 02/24/25 #10 tabs aspirin 81 mg tablet,delayed 81 mg PO DAILY #90 tabs 0 02/28/25 release allopurinol 100 mg tablet 50 mg (1/2 x 100 mg) PO .MICKI RY 03/24/25 OTHER DAY #30 tabs tizanidine 4 mg tablet 4 mg PO .HS PRN Muscle Spast icity 04/06/25 #90 tabs diabetic shoes with inserts #1 ea 04/13/25 apixaban 5 mg tablet (Eliquis) 5 mg PO BID #180 tabs 0 04/14/25 dapagliflozin propanediol 10 mg 10 mg PO DAILY #90 tab s 04/14/25 tablet (Farxiga) dulaglutide 1.5 mg/0.5 mL 1.5 mg (0.5 mL) SUBCUT .week ly #6 04/14/25 subcutaneous pen injector mL (Trulicity) fenofibrate 160 mg tablet 160 mg PO DAILY #90 tabs Diabetic Shoes 3 x insoles #1 ea 04/18/25 diabetic shoes with inserts #1 ea 05/17/25 Allergies Allergy/AdvReac Type Severity Reaction Status Date / Time fentanyl Allergy Unknown Verified 06/06/25 12:26 lisinopril AdvReac Mild Coughing Verified 06/06/25 12:26 [facility] ED 2 PFS: Medical History Atrial fibrillation Rotator cuff arthropathy of right shoulder Osteoarthritis of shoulders, bilateral Bilateral shoulder pain Pulmonary HTN Nonischemic cardiomyopathy Mixed hyperlipidemia Nonrheumatic aortic (valve) stenosis HTN (hypertension) Severe obstructive sleep apnea Nocturnal hypoxemia [place] (obstructive sleep apnea) ARUNA (acute kidney injury) Bilateral foot pain Generalized weakness Acute encephalopathy Generalized muscle weakness Acute alteration in mental status Confusion Epistaxis Anticoagulation adequate with anticoagulant therapy Transaminitis Daytime sleepiness Enrolled in chronic care management Gout attack Acute and chronic respiratory failure with hypoxia Ascending aortic aneurysm Congestive heart failure Pneumonia Acute and chronic respiratory failure with hypoxia Erectile dysfunction Type 2 diabetes mellitus Chronic kidney disease Anemia Diarrhea Diabetic foot Idiopathic gout, right ankle and foot DDD (degenerative disc disease), lumbosacral Surgical History Hx of arthroscopy of left knee Hx of tooth extraction History of cardiac pacemaker Hx of heart surgery (2017) Aortic valve replacement and aneurysm repair Family History Mother CAD (coronary artery disease) Brother Cancer Other Diabetes mellitus, type 2 Hypertension Denies family history of Diabetes Clotting disorder Dementia Chronic kidney disease (CKD) Suicide Anesthesia complication Bleeding disorder Lung disease Stroke Social History Smoking and tobacco/nicotine status: former use of tobacco/nicotine Second hand smoke exposure: No Alcohol intake: current Alcohol intake frequency: 3 or more drinks per day Alcohol type: beer Substance/Drug Use: never Additional social history: 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 He is in the midst of a divorce from his Anisha to whom he has been 15 years but for now he is still reporting her as next of kin. He wants full CODE STATUS Adopted: No Caregiver/support person: Yes (spouse) Lives independently: Yes Household members: spouse and children Housing: House Marital status: Number of children: 3 Number of grandchildren: 3 Highest education level completed: 6th Grade service: No Current occupational status: disabled Pets and animals: Yes Current gender identity: Male Special pola needs: No Agree to transfusion: Yes Physical Exam 2 Const: COMMON NORMALS: no acute distress, patient oriented x3 and healthy appearing HENMT: COMMON NORMALS: normocephalic and atraumatic HEAD & SCALP: n ormocephalic and atraumatic Eye: COMMON NORMALS: conjunctivae normal CONJUNCTIVA: Yes conjunctivae normal Neck/C-Spine: COMMON NORMALS: full ROM and supple Chest: COMMONS NORMALS: normal inspection of the chest Resp: COMMON NORMALS: normal respiratory effort, No retractions, No use of accessory muscles and clear to auscultation bilaterally AUSCULTATION: clear to auscultation bilaterally Cardio: COMMON NORMALS: regular rate, regular rhythm and No murmurs present (Cardio) RATE: regular rate RHYTHM: regular rhythm Extremity: COMMON NORMALS: full ROM NARRATIVE EXTREMITY EXAM: 2+ edema to bilateral lower extremities no signs of cellulitis Neuro: COMMON NORMALS: patient oriented x3, moves all extremities and no focal motor deficits Psych: COMMON NORMALS: mental status grossly normal, Normal thought process present and cooperative THOUGHT PROCESS: Normal thought process present Skin: COMMON NORMALS: no rashes or lesions noted and no wounds GENERAL SKIN EXAM: no rashes or lesions noted Course 2 Vital Signs: Vital signs: Vital Signs Temperature 97.6 F 06/08/25 09:45 Pulse Rate 72 06/08/25 09:45 Respiratory Rate 20 H 06/08/25 09:45 Blood Pressure 141/68 06/08/25 09:45 Pulse Oximetry 92 06/08/25 09:45 Oxygen Delivery Me thod Room Air 06/08/25 09:45 MDM - General Adult Medical Decision Making Patient presents here with lower extremity edema right leg greater than the left. Differential included DVT, arterial occlusion, edema, cellulitis. Patient's ultrasound here was normal no signs of DVT on exam he has good pulses no signs of arterial occlusion. He has no redness or warmth his white count here was normal. He has not been taking his Lasix and has dependent edema likely from his congestive heart failure. He is having no shortness of breath here and no hypoxia I did give him a dose of Lasix here he feels improved. Chest x-ray did show cardiomegaly but I see no signs of pneumonia. EKG showed a paced heart rate of [address] elevation QRS 189 QTc 493. I did go over his labs EKG and imaging with him he is stable for discharge and to follow-up with his PCP he stated that he did start taking his Lasix again today and will take them in the future. He understands agrees to plan Medical Records I reviewed the patient's medical records. Lab Data I reviewed the patient's lab results. 06/08/25 10:16 06/08/25 10:16 Radiology Impressions Chest X-Ray 06/08/25 10:11 IMPRESSION: Slight cardiac decompensation. Cardiomegaly. Laboratory Results WBC 5.63 10^3/uL (3.29-11.43) 06/08/25 10:16 RBC 3.14 10^6/uL (3.85-5.65) L 06/08/25 10:16 Hgb 8.80 g/dL (11.27-16.99) L 06/08/25 10:16 Hct 31.5 % (37-53) L 06/08/25 10:16 MCV 100.3 fl (82-101) 06/08/25 10:16 MCH 28.0 pg (27-33) 06/08/25 10:16 MCHC 27.9 g/dL (30-55) L 06/08/25 10:16 RDW 17.2 % (12.1-15.1) H 06/08/25 10:16 Plt Count 71 10^3/cmm (157-399) L 06/08/25 10:16 MPV 11.9 fL (7.4-10.4) H 06/08/25 10:16 Neut % (Auto) 78.6 % 06/08/25 10:16 Lymph % (Auto) 12.1 % 06/08/25 10:16 Gage % (Auto) 7.5 % 06/08/25 10:16 Eos % (Auto) 1.2 % 06/08/25 10:16 Baso % (Auto) 0.4 % 06/08/25 10:16 Neut # (Auto) 4.43 10^3/uL (1.8-7.7) 06/08/25 10:16 Lymph # (Auto) 0.7 10^3/uL (0.8-4.8) L 06/08/25 10:16 Gage # (Auto) 0.4 10^3/uL (0.2-0.9) 06/08/25 10:16 Eos # (Auto) 0.1 10^3/uL (0.0-0.8) 06/08/25 10:16 Baso # (Auto) 0.0 10^3/uL (0.0-0.1) 06/08/25 10:16 Nucleated RBC % (auto) 0.5 % 06/08/25 10:16 Nucleated RBCs # 0.0 /100WBC 06/08/25 10:16 Sodium 139 mmol/L (136-145) 06/08/25 10:16 Potassium 4.1 mmol/L (3.5-5.1) 06/08/25 10:16 Chloride 107 mmol/L (98-107) 06/08/25 10:16 Carbon Dioxide 22 mmol/L (22-29) 06/08/25 10:16 Anion Gap 14.1 (5-19) 06/08/25 10:16 BUN 35 mg/dL (8-23) H 06/08/25 10:16 Creatinine 2.1 mg/dL (0.7-1.2) H 06/08/25 10:16 GFR Calculation 31.6 mL/min (90-130) L 06/08/25 10:16 Glucose 143 mg/dL (65-115) H 06/08/25 10:16 Calculated Osmolality 298 mOsm/kg (285-295) H 06/08/25 10:16 Calcium 8.3 mg/dL (8.5-10.5) L 06/08/25 10:16 Total Bilirubin 0.9 mg/dL (0.15-1.2) 06/08/25 10:16 AST 47 U/L (0-40) H 06/08/25 10:16 ALT 51 U/L (0-41) H 06/08/25 10:16 Alkaline Phosphatase 50 U/L (40-130) 06/08/25 10:16 NT-Pro-B Natriuret Pep 9079 pg/mL (0-125) H 06/08/25 10:16 Total Protein 7.0 g/dL (6.6-8.7) 06/08/25 10:16 Albumin 3.3 g/dL (3.5-5.2) L 06/08/25 10:16 Globulin 3.7 g/dL (1.3-4.6) 06/08/25 10:16 XR interpretation done by ED provider, pending radiology final review ED provider radiology interpretation(s): cxr: cardiomegaly no pneumonia EKG Data EKG 1: I personally reviewed and interpreted this EKG as follows: EKG interpretation date: 06/08/25 EKG interpretation time: 10:57 Interpretation: paced hr [address] elevation qrs 189 qtc 493 Computer generated interpretation: Chest X-Ray 06/08/25 10:11 IMPRESSION: Slight cardiac decompensation. Cardiomegaly. Discharge Plan Discharge Patient Disposition: Home Clinical Impression: CHF (congestive heart failure), Lower extremity edema Condition: Stable Prescriptions: No Action (DME) wheelchair lightweight See Rx Instructions .Route .MEDSUPPLY Qty: 1 0RF Rx Instructions: Lightweight wheelchair for in home use (DME) diabetic shoes with inserts See Rx Instructions .Route .MEDSUPPLY Qty: 1 0RF Rx Instructions: As directed (DME) o2 at 3L per nasal cannula See Rx Instructions .Route .MEDSUPPLY Qty: 1 0RF Rx Instructions: Room air O2 sats were 83. After 3L O2 went up to 90's however when walking still at 89 on 3 L O2. Home (company) nitroglycerin 0.3 mg tablet, sublingual 0.3 mg sublingual Q5M PRN (Reason: chest pain) Qty: 30 0RF Rx Instructions: do not exceed 3 doses per episode ([facility]) Diabetic shoes with inserts See Rx Instructions .Route .MEDSUPPLY Qty: 1 0RF Rx Instructions: As directed ([facility]) nebulizer accessories Kit See Rx Instructions .Route Qty: 1 0RF Rx Instructions: As directed ([facility]) compressor, for nebulizer Device See Rx Instructions .Route Qty: 1 0RF Rx Instructions: As directed ([facility]) Dexcom G7 Sensor Device See Rx Instructions .Route Qty: 3 5RF Rx Instructions: As directed ([facility]) Dexcom G7 Infantry Operations Specialist Misc See Rx Instructions .Route Qty: 1 0RF Rx Instructions: As directed tizanidine 4 mg tablet 4 mg PO .HS PRN (Reason: Muscle Spasticity) Qty: 90 0RF ([facility]) Blood pressure cuff and machine See Rx Instructions .Route .MEDSUPPLY Qty: 1 0RF Rx Instructions: As directed furosemide 20 mg tablet 20 mg PO DAILY Qty: 90 3RF sildenafil [Viagra] 50 mg tablet 50 mg PO DAILY PRN (Reason: sexual activity) Qty: 10 2RF levetiracetam 500 mg tablet 500 mg PO QDAY Qty: 30 2RF aspirin 81 mg tablet,delayed release (DR/EC) 81 mg PO DAILY Qty: 90 1RF allopurinol 100 mg tablet 50 mg PO .EVERY OTHER DAY Qty: 30 0RF ([facility]) diabetic shoes with inserts See Rx Instructions .Route .MEDSUPPLY Qty: 1 0RF Rx Instructions: 1 pair Trulicity 1.5 mg/0.5 mL pen injector 1.5 mg SUBCUT .weekly Qty: 6 1RF Rx Instructions: on Thursday fenofibrate 160 mg tablet 160 mg PO DAILY Qty: 90 1RF dapagliflozin propanediol [Farxiga] 10 mg tablet 10 mg PO DAILY Qty: 90 1RF Eliquis 5 mg tablet 5 mg PO BID Qty: 180 1RF ([facility]) Diabetic Shoes 3 x insoles See Rx Instructions .Route .MEDSUPPLY Qty: 1 0RF Rx Instructions: As directed: [facility] tamsulosin 0.4 mg capsule 0.4 mg PO BEDTIME sacubitril-valsartan [Entresto] 97-103 mg tablet 1 tab PO BID metolazone 2.5 mg tablet 2.5 mg PO .QOD atorvastatin 40 mg tablet 40 mg PO QPM Discharge Orders: Discharge ED (Routine); Ordered 06/08/25 Ordered By: Zina Kessler Referrals: Lora Buchanan FNP-C [Primary Care Provider, Family Practice] - 4-7 days Discharge Diet: Advance as tolerated Discharge Activity: Resume usual activity Patient Instructions: Leg Edema (ED) Print Language: Uzbek Coding Level of Care Code ED Lining Stamper for Janelle Medina
--- NOTE | 2025-06-08 10:22 | PC.PHAR ---
[facility] is faxing current med list. 06/08/25 10:22am
[2025-06-08 10:32] LABS: Hematocrit 31.5 % (37-53); Hemoglobin 8.80 g/dL (11.27-16.99); Mean Corpuscular HGB Conc 27.9 g/dL (30-55); Mean Corpuscular Hemoglobin 28.0 pg (27-33); Mean Corpuscular Volume 100.3 fl (82-101); Nucleated Red Blood Cells % 0.5 %; Platelet Count 71 10^3/cmm (157-399); Red Blood Count 3.14 10^6/uL (3.85-5.65); White Blood Count 5.63 10^3/uL (3.29-11.43)
[2025-06-08] MEDS: FUROsemide 10 mg/mL SDV 10mL 60 MG IVP (10:38)
--- NOTE | 2025-06-08 10:38 | PC.PHAR ---
Pt states he took his morning medications but does not know what he takes. Verified medications with [facility] in [facility]. Pt has several medications that are 2 months overdue. Last fill dates and day supply entered in pharmacy notes.
[2025-06-08 10:48] LABS: Alanine Aminotransferase 51 U/L (0-41); Albumin Level 3.3 g/dL (3.5-5.2); Alkaline Phosphatase 50 U/L (40-130); Anion Gap 14.1 (5-19); Aspartate Amino Transferase 47 U/L (0-40); Blood Urea Nitrogen 35 mg/dL (8-23); Calcium 8.3 mg/dL (8.5-10.5); Carbon Dioxide 22 mmol/L (22-29); Chloride 107 mmol/L (98-107); Creatinine Clr Calc Pharmacy 42.8364; Globulin 3.7 g/dL (1.3-4.6); Glucose 143 mg/dL (65-115); NT Pro B Type Natriuretic Pept 9079 pg/mL (0-125); Osmolality Calculated 298 mOsm/kg (285-295); Potassium 4.1 mmol/L (3.5-5.1); Sodium 139 mmol/L (136-145); Total Protein 7.0 g/dL (6.6-8.7)
--- NOTE | 2025-06-08 10:57 | ECG_ITS ---
[facility] Date: 2025-[facility]08 Pat Name: Pawan Marcum Department: Room: Gender: Male [address] Clerk: : 1955 Requested By: Zina Kessler Order Number: [id number] Reading MD: BLACK HEARN Measurements Intervals [place] Rate: 70 P: 0 IN: 0 QRS: -56 QRSD: 189 T: 129 QT: 473 QTc: 511 Interpretive Statements ELECTRONIC VENTRICULAR PACEMAKER ABNORMAL RHYTHM ECG Compared to ECG 03/30/2025 16:46:41 No significant changes Electronically Signed On 06-08-2025 16:47:34 CDT by BLACK HEARN [email or web address]
[2025-06-08 11:45] VITALS: BP 129/95; PULSE 72; O2SAT 95
== END 2025-06-08 11:47 | disposition home or self-care (01) ==
PROVIDERS: Emergency Provider Emergency Medicine; PCP Nurse Practitioner Family
DX: I13.0 Hypertensive heart and chronic kidney disease with heart failure and stage 1 through stage 4 chronic kidney disease, or unspecified chronic kidney disease (principal); R60.0 Localized edema; E11.22 Type 2 diabetes mellitus with diabetic chronic kidney disease; N18.9 Chronic kidney disease, unspecified; I50.9 Heart failure, unspecified; E78.2 Mixed hyperlipidemia; Z87.891 Personal history of nicotine dependence
CPT/HCPCS: 36415; 71045; 80053; 80069; 82310; 83880; 83970; 85025; 93005; 93971; 96374; 99285; J1938

== ENCOUNTER → 2025-06-15 11:01 | Outpatient (BNVA) | payer MEDICARE, MEDICAID, SELFPAY | PROVIDERS: PCP Nurse Practitioner Family; Visit Provider Nurse Practitioner Family | DX: I10 Essential (primary) hypertension (principal); I50.9 Heart failure, unspecified | CPT/HCPCS: 80053; 83880 ==

== ENCOUNTER 2025-06-19 09:26 | Inpatient (IN) | payer MEDICARE, MEDICAID, SELFPAY ==
[2025-06-19] VITALS (7 sets, daily range): BP systolic 114–142; BP diastolic 77–92; PULSE 62–72; RESP 17–24; TEMP 36.4–36.6; O2SAT 91–99; BMI 37.6
--- NOTE | 2025-06-19 09:45 | XRR_ITS ---
PROCEDURE INFORMATION: Exam: XR Chest Exam date and time: 06/19/2025 9:47 AM Age: 70 years old Clinical indication: Other: Edema; Prior surgery; Surgery date: 6+ months; Surgery type: Pacer TECHNIQUE: Imaging protocol: Radiologic exam of the chest. Views: 1 view. COMPARISON: CR (CHEST, ) 06/08/2025 10:57 AM FINDINGS: Tubes, catheters and devices: Multilead pacemaker/defibrillator. Lungs: Mild vascular and interstitial prominence suggesting mild CHF. Hypoventilatory changes lung bases. Pleural spaces: Unremarkable. No pleural effusion. No pneumothorax. Heart/Mediastinum: See Vasculature finding. Vasculature: Moderate cardiomegaly and uncoiling of the thoracic aorta. Bones/joints: Median sternotomy. XR/XR chest 1V portable 52015 IMPRESSION: 1. No significant change. 2. Cardiomegaly and mild CHF.
--- NOTE | 2025-06-19 09:46 | ECG_ITS ---
[facility] Date: 2025-06-19 Pat Name: Pawan Marcum Department: Room: Gender: Male Disability Rater: : 1955 Requested By: Meli Jules Order Number: [id number] Spence MD: Honorio Scott M.D. Measurements Intervals [place] Rate: 70 P: 0 IN: 0 QRS: -43 QRSD: 186 T: 137 QT: 469 QTc: 507 Interpretive Statements ELECTRONIC VENTRICULAR PACEMAKER ABNORMAL RHYTHM ECG Compared to ECG 06/08/2025 10:57:45 No significant changes Electronically Signed On 06-20-2025 19:23:33 CDT by Honorio Scott M.D. [email or web address]
--- OUTSIDE RECORDS SUMMARY | 2025-06-19 09:50 | XMS_ITS | Encounter Summary ---
Author Organization [facility] Address [address] [place] [address] Care Team Providers Care Pit Operator Name Role Phone Simran Hyman MD Primary Care Provider Unavail le Encounter Details Date Type Department Care Team (Latest Contact Info) Description 12/30/2005 Outpatient Historical [facility] [address] 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
--- OUTSIDE RECORDS SUMMARY | 2025-06-19 09:51 | XMS_ITS | Encounter Summary ---
Author Organization [facility] Address [address] [place] [address] Phone Care Team Providers Care Facility Maintenance Technician Name Role Phone Libra Buchanan Primary Care Provider [phone] Encounter Details Date Type Department Care Team (Late st Contact Info) Description 06/12/2025 Documentation Only [facility] [address] [place] [address] Tripp Carter [place] [address] [place] [address] Social History Tobacco Use Types Packs/Day Years Used Date Smoking Tobacco: Never Passive Smoke Exposure: Never Smokeless Tobacco: Never Alcohol Use Standard Drinks/Week Comments Never 0 (1 standard drink = 0.6 oz pur e alcohol) Sex and Gender Information Value Date Recorded Sex Assigned at Not on file Legal Sex Male 9:23 AM EDT Gender Identity Not on file Sexual Orientation Not on file documented as of this encounter Plan of Treatment Not on file documented as of this encounter Visit Diagnoses Not on filedocumented in this encounter Care Teams Facility Maintenance Technician Relationship Specialty Start Date End Date Libra Buchanan [address] [id number] PCP - General Nephrology 12/13/24 documented as of this encounter
--- OUTSIDE RECORDS SUMMARY | 2025-06-19 09:51 | XMS_ITS | Clinical Summary ---
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
--- OUTSIDE RECORDS SUMMARY | 2025-06-19 09:51 | XMS_ITS | Encounter Summary ---
Author Organization [facility] Address [address] [place] [address] Care Team Providers Care Template Checker Name Role Phone Unavailable Primary Care Provider Unavailabl e Encounter Details Date Type Department Care Team (Late st Contact Info) Description 05/31/[address] 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 Based on the patient's refill history, there is concern for their Proportions of Days Covered (PDC) to fall below the requirement of 80% adherence set by CMS. The Patient has been identified by [employer] as non-adherent to Atorvastatin with a PDC of 75 %. Left Voicemail with callback number ([phone]) to discuss medication adherence and ensure patient is tolerating all medications without adverse events or barriers to medication adherence. Mile Quijano Specialty Invoicing Specialist [facility] documented in this encounter Plan of Treatment Not on file documented as of this encounter Visit Diagnoses Not on filedocumented in this encounter
--- OUTSIDE RECORDS SUMMARY | 2025-06-19 09:51 | XMS_ITS | Encounter Summary ---
Author Organization [facility] Address [address] [place] [address] Phone Care Team Providers Care Laboratory Animal Facility Supervisor Name Role Phone Libra Buchanan Primary Care Provider [phone] Encounter Details Date Type Department Care Team (Late st Contact Info) Description 06/12/2025 Documentation Only [facility] [address] [place] [address] Jen Nicholas MD [address] [place] [address] Social History Tobacco Use Types [...] on filedocumented in this encounter Care Teams Laboratory Animal Facility Supervisor Relationship Specialty Start Date End Date Libra Buchanan [address] [id number] PCP - General Nephrology 12/13/24 documented as of this encounter
--- OUTSIDE RECORDS SUMMARY | 2025-06-19 09:51 | XMS_ITS | Encounter Summary ---
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 Dx) Social History Tobacco Use Types Packs/Day Years Used Date Smoking Tobacco: Never Assessed Sex and Gender Information Value Date Recorded Sex Assigned at Not on file 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
--- OUTSIDE RECORDS SUMMARY | 2025-06-19 09:51 | XMS_ITS | Encounter Summary ---
Author Organization [facility] Address [address] [place] [address] Phone Care Team Providers Care Wet Press Tender Name Role Phone Libra Buchanan Primary Care Provider [phone] Encounter Details Date Type Department Care Team (Late st Contact Info) Description 06/12/2025 Documentation Only [facility] [address] [place] [address] Edmarrayray Emma [address] [place] [address] Social History Tobacco Use Types [...] on filedocumented in this encounter Care Teams Wet Press Tender Relationship Specialty Start Date End Date Libra Buchanan [address] [place] [address] PCP - General Nephrology 12/13/24 documented as of this encounter
--- OUTSIDE RECORDS SUMMARY | 2025-06-19 09:52 | XMS_ITS | Clinical Summary ---
Author Organization [facility] Address [address] [place] [address] Phone Care Team Providers Care Steam Shovel Operating Engineer Name Role Phone Unavailable Primary Care Provider [...] 11/12/2022 DM (diabetes mellitus), type 2 11/12/2022 Encounters Date Type Department Care Team Description 05/31/[address] 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 Tyler gilman [phone], fax [phone] Procedures Procedure Name Priority Date/Time Associated Diagnosis Comments HEMOGLOBIN A1C Routine 11/12/2022 6:58 PM CDT from Last 3 Months or Most Recently Relevant to Health Maintenance Results * HEMOGLOBIN A1C (11/12/2022 6:58 PM CDT) HEMOGLOBIN A1C 5.4 <=5.6 % 11/14/2022 9:32 AM CDT [facility] [place] EST. AVG GLUCOSE, A1C 108 mg/dL 11/14/2022 9:32 AM CDT [facility] [employer] [facility] Blood Venipuncture / Unknown 11/12/2022 6:58 PM CDT 11/12/2022 7:02 PM CDT Narrative [facility] [employer] [facility] - 11/14/2022 9:32 AM CDT HGB A1C INTERPRETATION NORMAL: <5.7% PRE-DIABETES: 5.7 - 6.4% DIABETES: 6.5% OR GREATER Nyla Sanchez DO CHEMISTRY ORDERABLES Final Resu lt [facility] [employer] [facility] CLIA # [id number] [address] [address] from Last 3 Months or Most Recently Relevant to Health Maintenance Insurance [place] [address] [place] [address] DUAL COMPLETE PPO [facility] [id number] Advance Directives For more information, please contact: [phone] * Full Code (Latest Code Status on File) Date Activated Date Inactivated Comments 11/13/2022 4:09 PM 11/20/2022 10:47 PM
--- OUTSIDE RECORDS SUMMARY | 2025-06-19 09:52 | XMS_ITS | Clinical Summary ---
[facility] Organization [facility] [place] Address [address] [place] [address] Phone Care Team Providers Care Automobile Engine Assembler Name Role Phone Libra Buchanan Primary Care Provider [phone] Allergies Active Allergy Reactions Criticality Noted Date Comments Fentanyl 11/02/2023 Lisinopril Low 11/24/2022 Cough/Broke Legs out [...] battery change in July 2022 of his [employer] device. History of CHB Interrogation of [...] obtaining, if possible, renal pathology slides from [facility] to review. We plan to reach out [...] ((last 24 hours 114-154, 76 this am) Encounters Date Type Department Care Team Description 06/12/2025 Documentation Only [facility] [address] [place] [id number] Emma Maxwell 06/12/2025 Documentation Only [facility] [address] [place] [address] Jen Nicholas MD 06/12/2025 Documentation Only [facility] [address] [place] [address] Tripp Carter MA 06/07/2025 Telephone [facility], [facility] [address] [place] [address] Yolis Cohen MA from Last 3 Months Family History Medical History Relation Comments Cancer [...] 12/13/2024 10:34 AM CDT Plan of Treatment Health Maintenance [...] 02/21/2023 023, 11/12/2022 Influenza Vaccine (#1) 2025 4, 07/01/2021 Hepatitis B Vaccine Aged Out No longe r eligible based on patient's age to complete this topic Procedures Procedure Name Priority Date/Time Associated Diagnosis Comments PTH, INTACT Routine 06/08/2025 Hematuria, not otherwise specified Hypertensive chronic kidney disease with stage 1 through stage 4 chronic kidney disease, or unspecified chronic kidney disease RENAL FUNCTION PANEL Routine 06/08/2025 Hematuria, not otherwise specified Hypertensive chronic kidney disease with stage 1 through stage 4 chronic kidney disease, or unspecified chronic kidney disease CBC Routine 06/08/2025 Hematuria, not otherwise specified Hypertensive chronic kidney disease with stage 1 through stage 4 chronic kidney disease, or unspecified chronic kidney disease from Last 3 Months Results * CBC (06/08/2025) WBC 5.66 K/uL PRINT/EXTE RNAL (NON-INTERFACE D LABS) Red Blood Cell Count 3.20 PRINT/EXTERNAL (NON-INTERFACE D LABS) Hemoglobin 9.10 g/dL PRINT/EXT ERNAL (NON-INTERFACE D LABS) Hematocrit 33.2 % PRINT/EXT ERNAL (NON-INTERFACE D LABS) MCV 103.8 PRINT/EXTE RNAL (NON-INTERFACE D LABS) MCH 28.4 PRINT/EXTE RNAL (NON-INTERFACE D LABS) MCHC 27.4 PRINT/EXTE RNAL (NON-INTERFACE D LABS) RDW 17.2 PRINT/EXTE RNAL (NON-INTERFACE D LABS) Platelet Count 70 PRINT /EXTERNAL (NON-INTERFACE D LABS) MPV 11.9 PRINT/EXTE RNAL (NON-INTERFACE D LABS) Absolute Neutrophils 4.52 PRINT/EXTERNAL (NON-INTERFACE D LABS) Absolute Lymphocytes 0.6 PRINT/EXTERNAL (NON-INTERFACE D LABS) Absolute Monocytes 0.4 PRINT/EXTERNAL (NON-INTERFACE D LABS) Absolute Eosinophils 0.1 PRINT/EXTERNAL (NON-INTERFACE D LABS) Absolute Basophils 0.0 PRINT/EXTERNAL (NON-INTERFACE D LABS) Neutrophils 79.7 K/uL PRINT/EX TERNAL (NON-INTERFACE D LABS) Lymphocytes 11.0 PRINT/EX TERNAL (NON-INTERFACE D LABS) Monocytes 7.4 PRINT/EXTE RNAL (NON-INTERFACE D LABS) Eosinophils 1.1 PRINT/EX TERNAL (NON-INTERFACE D LABS) Basophils 0.4 PRINT/EXTE RNAL (NON-INTERFACE D LABS) Blood Venous blood / Unknown 06/08/2025 Narrative PRINT/EXTERNAL (NON-INTERFACED LABS) - 06/08/2025 10:21 AM [facility] Clinical [facility] [address] [place] [address] Dr. Maria T Martinez, Pleating Machine Operator Frannie King NP LAB BLOOD ORDERABLES Belinda l Result Performing Organization Address [facility] Co de Phone Number PRINT/EXTERNAL (NON-INTERFACED LABS) * PTH, Intact (06/08/2025) Parathyroid Hormone, Intact 46.2 pg/mL PRINT/MORTUARY TECHNICIAN AL (NON-INTERFACE D LABS) Blood Venous blood / Unknown 06/08/2025 Narrative PRINT/EXTERNAL (NON-INTERFACED LABS) - 06/08/2025 10:21 AM [facility] [address] [place] [address] [address] Maria T Martinez, Pleating Machine Operator Frannie King NP LAB BLOOD ORDERABLES Belinda l Result PRINT/EXTERNAL (NON-INTERFACED LABS) * Renal Function Panel (06/08/2025) Glucose 203 mg/dL PRINT/EXTE RNAL (NON-INTERFACE D LABS) BUN 37 mg/dL PRINT/EXTE RNAL (NON-INTERFACE D LABS) Creatinine 2.2 mg/dL PRINT/EXT ERNAL (NON-INTERFACE D LABS) Sodium 139 mEq/L PRINT/EXTE RNAL (NON-INTERFACE D LABS) Potassium 3.9 mEq/L PRINT/EXTE RNAL (NON-INTERFACE D LABS) Chloride 106 PRINT/EXTE RNAL (NON-INTERFACE D LABS) Carbon Dioxide 23 mmol/L PRINT /EXTERNAL (NON-INTERFACE D LABS) Calcium 8.2 mg/dL PRINT/EXTE RNAL (NON-INTERFACE D LABS) Phosphorus, Serum 2.9 mg/dL PRINT/EXTERNAL (NON-INTERFACE D LABS) Albumin (Blood) 3.2 g/dL PRIN T/EXTERNAL (NON-INTERFACE D LABS) eGFR 29.9 PRINT/EXTE RNAL (NON-INTERFACE D LABS) Blood Venous blood / Unknown 06/08/2025 Narrative PRINT/EXTERNAL (NON-INTERFACED LABS) - 06/08/2025 10:21 AM [facility] Clinical Laboratory [address] [place] [address] Dr. Maria T Martinez, Pleating Machine Operator us Frannie King TABLE COVER FOLDER LAB BLOOD ORDERABLES Belinda l Result PRINT/EXTERNAL (NON-INTERFACED LABS) from Last 3 Months Insurance Medicaid [place] ([id number]) [id number] Care Teams Automobile Engine Assembler Relationship Specialty Start Date End Date Libra Buchanan [address] [place] [id number] PCP - General Nephrology 12/13/24
--- NOTE | 2025-06-19 10:05 | W.ED.SOB ---
HPI - SOB/Dyspnea General: Chief Complaint: Shortness of Breath/Dyspnea Stated Complaint: both legs swellen Time Seen by Provider: 06/19/25 09:43 History of Present Illness: HPI Narrative: 70-year-old man with a history of atrial fibrillation, chronic anticoagulation on Eliquis, obesity, hypertension, nonischemic cardiomyopathy, pulmonary hypertension, obstructive sleep apnea, gout, chronic hypoxemic respiratory failure on 3 L nasal cannula at all times, type 2 diabetes, chronic kidney disease, anemia, and pacemaker placement who presents emergency room with worsening lower extremity swelling, dyspnea and a wound on his right mid garza. He was seen in clinic today and his PCP sent him to the emergency room because of the wound on his leg, the worsening swelling and is worsening shortness of breath. No fevers. No chest pain. No abdominal pain. Says the swelling in his legs is quite a bit worse. Also the redness on that right garza is worse Related Data Home Medications ?Medication ?Instructions ?Recorded ?Confirmed tamsulosin 0.4 mg capsule 0.4 mg PO BEDTIME 02/23/25 06/15/25 atorvastatin 40 mg tablet 40 mg PO QPM 06/08/25 06/15/25 metolazone 2.5 mg tablet 2.5 mg PO .QOD 06/08/25 06/15/25 sacubitril 97 mg-valsartan 103 mg 1 tab PO BID 06/08/25 06/15/25 tablet (Entresto) Previous Rx's ?Medication ?Instructions ?Recorded Blood pressure cuff and machine #1 ea 06/27/22 o2 at 3L per nasal cannula #1 ea 08/11/22 nitroglycerin 0.3 mg sublingual 0.3 mg sublingual Q5M PRN chest 10/08/22 tablet pain #30 tabs Diabetic shoes with inserts #1 ea 04/24/23 furosemide 20 mg tablet 20 mg PO DAILY EDEMA #90 tabs 05/09/24 wheelchair #1 ea 06/02/24 compressor, for nebulizer #1 ea 06/07/24 nebulizer accessories #1 ea 06/07/24 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 sensor (Dexcom G7 #3 ea 06/20/24 Sensor device) 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,principal ios developer,cont #1 ea 06/20/24 (Dexcom G7 Estate Administrator) levetiracetam 500 mg tablet 500 mg PO QDAY #30 tabs 02/24/25 sildenafil 50 mg tablet (Viagra) 50 mg PO DAILY PRN sexual activity 02/24/25 #10 tabs aspirin 81 mg tablet,delayed 81 mg PO DAILY #90 tabs 02/28/25 release allopurinol 100 mg tablet 50 mg (1/2 x 100 mg) PO .EVERY 03/24/25 OTHER DAY #30 tabs tizanidine 4 mg tablet 4 mg PO .HS PRN Muscle Spasticity 04/06/25 #90 tabs diabetic shoes with inserts #1 ea 04/13/25 apixaban 5 mg tablet (Eliquis) 5 mg PO BID #180 tabs 04/14/25 dapagliflozin propanediol 10 mg 10 mg PO DAILY #90 tabs 04/14/25 tablet (Farxiga) dulaglutide 1.5 mg/0.5 mL 1.5 mg (0.5 mL) SUBCUT .weekly #6 04/14/25 subcutaneous pen injector mL ([facility]) fenofibrate 160 mg tablet 160 mg PO DAILY #90 tabs 04/14/25 Diabetic Shoes 3 x insoles #1 ea 04/18/25 diabetic shoes with inserts #1 ea 05/17/25 cephalexin 500 mg capsule 500 mg PO BID #14 caps 06/15/25 furosemide 20 mg tablet (Lasix) 20 mg PO DAILY #5 tabs 06/15/25 furosemide 40 mg tablet (Lasix) 40 mg PO BID 1 day #2 tabs 06/15/25 Allergies Allergy/AdvReac Type Severity Reaction Status Date / Time fentanyl Allergy Unknown Verified 06/15/25 09:16 lisinopril AdvReac Mild Coughing Verified 06/15/25 09:16 Review of Systems Narrative: Constitutional symptoms: Negative except as documented in HPI. Skin symptoms: Negative except as documented in HPI. Eye symptoms: Negative except as documented in HPI. ENMT symptoms: Negative except as documented in HPI. Respiratory symptoms: Negative except as documented in HPI. Cardiovascular symptoms: Negative except as documented in HPI. Gastrointestinal symptoms: Negative except as documented in HPI. Genitourinary symptoms: Negative except as documented in HPI. Musculoskeletal symptoms: Negative except as documented in HPI. Neurologic symptoms: Negative except as documented in HPI. Psychiatric symptoms: Negative except as documented in HPI. Endocrine symptoms: Negative except as documented in HPI. PFSH ED PFS: Medical History (Updated 06/19/25 @ 11:53 by Meli Urbina MD) Atrial fibrillation Rotator cuff arthropathy of right shoulder Osteoarthritis of shoulders, bilateral Bilateral shoulder pain Pulmonary HTN Nonischemic cardiomyopathy Mixed hyperlipidemia Nonrheumatic aortic (valve) stenosis HTN (hypertension) Severe obstructive sleep apnea Nocturnal hypoxemia [place] (obstructive sleep apnea) ARUNA (acute kidney injury) Bilateral foot pain Generalized weakness Acute encephalopathy Generalized muscle weakness Acute alteration in mental status Confusion Epistaxis Anticoagulation adequate with anticoagulant therapy Transaminitis Daytime sleepiness Enrolled in chronic care management Gout attack Acute and chronic respiratory failure with hypoxia Ascending aortic aneurysm Congestive heart failure Pneumonia Acute and chronic respiratory failure with hypoxia Erectile dysfunction Type 2 diabetes mellitus Chronic kidney disease Anemia Diarrhea Diabetic foot Idiopathic gout, right ankle and foot DDD (degenerative disc disease), lumbosacral Surgical History Hx of arthroscopy of left knee Hx of tooth extraction History of cardiac pacemaker Hx of heart surgery (2017) Aortic valve replacement and aneurysm repair Family History Mother CAD (coronary artery disease) Brother Cancer Other Diabetes mellitus, type 2 Hypertension Denies family history of Diabetes Clotting disorder Dementia Chronic kidney disease (CKD) Suicide Anesthesia complication Bleeding disorder Lung disease Stroke Social History Smoking and tobacco/nicotine status: former use of tobacco/nicotine Second hand smoke exposure: No Alcohol intake: current Alcohol intake frequency: 3 or more drinks per day Alcohol type: beer Substance/Drug Use: never Additional social history: 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 He is in the midst of a divorce from his Anisha to whom he has been 15 years but for now he is still reporting her as next of kin. He wants full CODE STATUS Adopted: No Caregiver/support person: Yes (spouse) Lives independently: Yes Household members: spouse and children Housing: House Marital status: Number of children: 3 Number of grandchildren: 3 Highest education level completed: 6th Grade service: No Current occupational status: disabled Pets and animals: Yes Current gender identity: Male Special pola needs: No Agree to transfusion: Yes Physical Exam Narrative: EXAM NARRATIVE: General: Alert, no acute distress. Skin: Warm, dry. Head: Normocephalic, atraumatic. Neck: Supple, trachea midline. Eye: Extraocular movements are intact. Ears, nose, mouth and throat: mucosa moist. Cardiovascular: Regular, Normal peripheral perfusion. Respiratory: Lungs are clear to auscultation, respirations are non-labored, breath sounds are equal, Symmetrical chest wall expansion. Gastrointestinal: Soft, Nontender, Non distended Musculoskeletal: Normal ROM, no deformity. Neurological: Alert and oriented, No focal neurological deficit observed. Psychiatric: Cooperative, appropriate mood & affect. Course Vital Signs: Vital signs: Vital Signs Temperature 97.8 F 06/19/25 09:48 Pulse Rate 71 06/19/25 09:48 Respiratory Rate 24 H 06/19/25 09:48 Blood Pressure 127/87 06/19/25 09:48 Pulse Oximetry 93 06/19/25 09:48 Oxygen Delivery Me thod Nasal Cannula 06/19/25 09:48 Oxygen Flow Rate 3 06/19/25 09:48 MDM - SOB/Dyspnea Medical Decision Making Medical decision making: Differential diagnosis including but not limited to and based on the above HPI, review of systems and physical exam: for patient with edema: Congestive heart failure. Kidney failure. DVT / Pulmonary embolism. Protein malnutrition. Cirrhosis. Orders placed to evaluate differential diagnosis based on the above differential, HPI and physical exam Chest x-ray: Cardiomegaly. Pacemaker. Sternotomy wires. This was reviewed and interpreted by myself the emergency room physician. I also reviewed the radiology report. Lab Review: Laboratory results were reviewed and interpreted by myself the emergency room physician. No leukocytosis. Stable anemia. Creatinine is within his normal range at around 2.8. proBNP is elevated over his baseline at 18,000. Troponin is elevated at 154. This is in the middle of the range of his usual initial troponin levels. I reviewed the patient's medical record. 70-year-old man with a history of atrial fibrillation, chronic anticoagulation on Eliquis, obesity, hypertension, nonischemic cardiomyopathy, pulmonary hypertension, obstructive sleep apnea, gout, chronic hypoxemic respiratory failure on 3 L nasal cannula at all times, type 2 diabetes, chronic kidney disease, anemia, and pacemaker placement Reexamination: Patient remained stable. No increased work of breathing. No altered mental status. No focal motor deficits. Stable on his home oxygen therapy Consultation: I spoke Dr. Torres who is on-call for the hospitalist service and agrees admission. Assessment and plan: Edema Cellulitis Congestive heart failure ?Ancef and 80 mg IV Lasix. -I discussed the patient with the hospitalist on-call who is admitting the patient. - Discussed findings and plan with patient. Answered any questions. - All laboratory values were reviewed and interpreted personally by myself, the ER physician - All imaging was reviewed and interpreted personally by myself, the ER physician. - Evaluation and treatment of this problem were appropriate in the emergency setting Lab Data 06/19/25 10:23 06/19/25 10:23 Labs/Radiology: Radiology Impressions Chest X-Ray 06/19/25 09:45 IMPRESSION: 1. No significant change. 2. Cardiomegaly and mild CHF. Laboratory Results WBC 6.44 10^3/uL (3.29-11.43) 06/19/25 10:23 RBC 3.28 10^6/uL (3.85-5.65) L 06/19/25 10:23 Hgb 9.20 g/dL (11.27-16.99) L 06/19/25 10:23 Hct 31.7 % (37-53) L 06/19/25 10:23 MCV 96.6 fl (82-101) 06/19/25 10:23 MCH 28.0 pg (27-33) 06/19/25 10:23 MCHC 29.0 g/dL (30-55) L 06/19/25 10:23 RDW 17.8 % (12.1-15.1) H 06/19/25 10:23 Plt Count 75 10^3/cmm (157-399) L 06/19/25 10:23 MPV 12.6 fL (7.4-10.4) H 06/19/25 10:23 Neut % (Auto) 78.4 % 06/19/25 10:23 Lymph % (Auto) 12.0 % 06/19/25 10:23 [place] % (Auto) 8.7 % 06/19/25 10:23 Eos % (Auto) 0.3 % 06/19/25 10:23 Baso % (Auto) 0.3 % 06/19/25 10:23 Neut # (Auto) 5.05 10^3/uL (1.8-7.7) 06/19/25 10:23 Lymph # (Auto) 0.8 10^3/uL (0.8-4.8) 06/19/25 10:23 [place] # (Auto) 0.6 10^3/uL (0.2-0.9) 06/19/25 10:23 Eos # (Auto) 0.0 10^3/uL (0.0-0.8) 06/19/25 10:23 Baso # (Auto) 0.0 10^3/uL (0.0-0.1) 06/19/25 10: Nucleated RBC % (auto) 0.9 % 06/19/25 10: Nucleated RBCs # 0.1 /100WBC 06/19/25 10: ESR 15 mm/hr (0-10) H 06/19/25 10:23 Specimen Type Arterial 06/19/25 10:10 Sample Site Radial, right 06/19/25 10:10 ABG pH 7.39 (7.35-7.45) 06/19/25 10:10 ABG pCO2 40.4 mmHg (35-45) 06/19/25 10:10 ABG pO2 67.4 mmHg (80.0-100.0) L 06/19/25 10:10 ABG HCO3 24.5 mmol/L (22-26) 06/19/25 10:10 ABG O2 Saturation 92.1 06/19/25 10:10 ABG Base Excess -0.5 mmol/L (-2.0-2.0) 06/19/25 10:10 Anthony Test Pos 06/19/25 10:10 A-a O2 Gradient 4.2 mmHg (5-10) L 06/19/25 10:10 Hematocrit 28.3 % (42-52) L 06/19/25 10:10 Hgb O2 Saturation 89.3 % (95-100) L 06/19/25 10:10 Carboxyhemoglobin 2.2 %THgb (0.4-20.1) 06/19/25 10:10 Methemoglobin 0.9 % (0.4-1.5) 06/19/25 10:10 Total Hemoglobin 9.2 g/dL (14-18) L 06/19/25 10:10 Sodium 135.0 mmol/L (131-143) 06/19/25 10:10 Potassium 4.1 mmol/L (3.5-5.0) 06/19/25 10:10 Glucose 161.0 mg/dL (70-115) H 06/19/25 10:10 Ionized Calcium 1.2 mmol/L (1.1-1.4) 06/19/25 10:10 O2 Delivery Device Nc 06/19/25 10:10 O2 Liters/Min 0.5 % 06/19/25 10:10 Plunger Machine Operator ID [email or web address] 06/19/25 10:10 Sodium 132 mmol/L (136-145) L 06/19/25 10:23 Potassium 4.2 mmol/L (3.5-5.1) 06/19/25 10:23 Chloride 96 mmol/L (98-107) L 06/19/25 10:23 Carbon Dioxide 23 mmol/L (22-29) 06/19/25 10:23 Anion Gap 17.2 (5-19) 06/19/25 10:23 BUN 47 mg/dL (8-23) H 06/19/25 10:23 Creatinine 2.8 mg/dL (0.7-1.2) H 06/19/25 10:23 GFR Calculation 22.6 mL/min (90-130) L 06/19/25 10:23 Glucose 151 mg/dL (65-115) H 06/19/25 10:23 Calculated Osmolality 289 mOsm/kg (285-295) 06/19/25 10:23 Lactic Acid 2.9 mmol/L (0.5-2.2) H 06/19/25 10:23 Calcium 8.5 mg/dL (8.5-10.5) 06/19/25 10:23 Total Bilirubin 1.7 mg/dL (0.15-1.2) H 06/19/25 10:23 AST 44 U/L (0-40) H 06/19/25 10:23 ALT 126 U/L (0-41) H 06/19/25 10:23 Alkaline Phosphatase 49 U/L (40-130) 06/19/25 10:23 Troponin T Baseline 154 ng/L (0-15) H* 06/19/25 10:23 C-Reactive Protein 9.7 mg/L (0.0-4.9) H 06/19/25 10:23 NT-Pro-B Natriuret Pep 30633 pg/mL (0-125) H 06/19/25 10:23 Total Protein 7.3 g/dL (6.6-8.7) 06/19/25 10: Albumin 3.5 g/dL (3.5-5.2) 06/19/25 10:23 Globulin 3.8 g/dL (1.3-4.6) 06/19/25 10:23 Urine Color Dark yellow (Yellow) A 06/19/25 10:56 Urine Appearance Clear (CLEAR) 06/19/25 10:56 Urine pH 5.0 (5-7) 06/19/25 10:56 Ur Specific Summers 1.019 (1.005-1.030) 06/19/25 10:56 Urine Protein 1+ (Negative) A 06/19/25 10:56 Urine Glucose (UA) 2+ (Normal) H 06/19/25 10:56 Urine Ketones Negative (Negative) 06/19/25 10:56 Urine Blood Negative (Negative) 06/19/25 10:56 Urine Nitrate Negative (Negative) 06/19/25 10:56 Urine Bilirubin Negative (Negative) 06/19/25 10:56 Urine Urobilinogen 1.0 mg/dL (Negative) 06/19/25 10:56 Ur Leukocyte Esterase Negative (Negative) 06/19/25 10:56 Urine RBC Rare /hpf (0-2) 06/19/25 10:56 Urine WBC None /hpf (0-5) 06/19/25 10:56 Ur Squamous Epith Cells None /hpf (0-5) 06/19/25 10:56 Amorphous Sediment Not Reportable 06/19/25 10:56 Urine Bacteria None /hpf (NONE) 06/19/25 10:56 All radiology interpretation(s) finalized by discharge Discharge Plan Discharge Patient Disposition: Admitted As Inpatient Clinical Impression: Cellulitis, Leg wound, right, Edema, Congestive heart failure, Dyspnea, Hypoxemia Condition: Stable Coding Level of Care Code ED Hydrology Teacher for Janelle Medina
[2025-06-19 10:16] LABS: ABG PCO2 40.4 mmHg (35-45); ABG PH Result 7.39 (7.35-7.45); Alveolar-Arterial Oxygen Gradi 4.2 mmHg (5-10); Arterial Blood Gas Hematocrit 28.3 % (42-52); Blood Gas Allen Test Pos; Blood Gas LPM 0.5 %; Blood Gas Operator Identificat WLCI; Blood Gas Sample Site Radial, right; Blood Gas Sample Type Arterial; Carboxyhemoglobin 2.2 %THgb (0.4-20.1); Glucose Level-ABG 161.0 mg/dL (70-115); HCO3 ABG 24.5 mmol/L (22-26); Ionized Calcium Level - ABG 1.2 mmol/L (1.1-1.4); Methemoglobin 0.9 % (0.4-1.5); Oxygen Saturation ABG 92.1; PO2 ABG 67.4 mmHg (80.0-100.0); Potassium Level - ABG 4.1 mmol/L (3.5-5.0); Sodium Level - ABG 135.0 mmol/L (131-143)
[2025-06-19 10:38] LABS: Hematocrit 31.7 % (37-53); Hemoglobin 9.20 g/dL (11.27-16.99); Mean Corpuscular HGB Conc 29.0 g/dL (30-55); Mean Corpuscular Hemoglobin 28.0 pg (27-33); Mean Corpuscular Volume 96.6 fl (82-101); Nucleated Red Blood Cells % 0.9 %; Platelet Count 75 10^3/cmm (157-399); Red Blood Count 3.28 10^6/uL (3.85-5.65); White Blood Count 6.44 10^3/uL (3.29-11.43)
[2025-06-19 10:55] LABS: Lactic Sepsis W/Reflex 2.9 mmol/L (0.5-2.2)
[2025-06-19 11:08] LABS: Alanine Aminotransferase 126 U/L (0-41); Albumin Level 3.5 g/dL (3.5-5.2); Alkaline Phosphatase 49 U/L (40-130); Anion Gap 17.2 (5-19); Aspartate Amino Transferase 44 U/L (0-40); Blood Urea Nitrogen 47 mg/dL (8-23); Calcium 8.5 mg/dL (8.5-10.5); Carbon Dioxide 23 mmol/L (22-29); Chloride 96 mmol/L (98-107); Globulin 3.8 g/dL (1.3-4.6); Glucose 151 mg/dL (65-115); NT Pro B Type Natriuretic Pept 18794 pg/mL (0-125); Osmolality Calculated 289 mOsm/kg (285-295); Potassium 4.2 mmol/L (3.5-5.1); Sodium 132 mmol/L (136-145); Total Protein 7.3 g/dL (6.6-8.7)
[2025-06-19 11:09] LABS: Troponin(5th) Baseline 154 ng/L (0-15)
[2025-06-19 11:12] LABS: Glucose Urine UA 2+ (Normal); Nitrate Urine Negative (Negative); Specific Gravity, Urine 1.019 (1.005-1.030)
--- NOTE | 2025-06-19 11:35 | ECG_ITS ---
[facility] Date: 2025-06[facility]19 Pat Name: Pawan Marcum Department: Room: Gender: Male Mannequin Mold Maker: : 1955 Requested By: Meli Jules Order Number: [id number] Spence MD: Honorio Scott M.D. Measurements Intervals Adin Rate: 71 P: 0 NH: 0 QRS: -35 QRSD: 182 T: 136 QT: 456 QTc: 499 Interpretive Statements ELECTRONIC VENTRICULAR PACEMAKER ABNORMAL RHYTHM ECG Compared to ECG 06/19/2025 09:56:52 No significant changes Electronically Signed On 06-20-2025 19:42:24 CDT by Honorio Scott M.D. [email or web address]
[2025-06-19 11:36] LABS: Other Sediment, Urine R
[2025-06-19 12:25] LABS: Reflex Lactate Order REFLEX LACTIC ORDERD
[2025-06-19] MEDS: FUROsemide 10 mg/mL SDV 10mL 80 MG IVP ×2 (12:40→20:51)
[2025-06-19] MEDS: ceFAZolin 2,000 mg SDV 2000 MG IVP ×2 (12:40→20:52)
[2025-06-19 12:43] LABS: Troponin 5 2HR 152.8 ng/L (0-15); Troponin 5 2HR Delta -1.2 ABS# (0-10)
--- NOTE | 2025-06-19 12:54 | PC.NURSE ---
PT HYPOTENSIVE 114/77, PER DR. ROLLE VERBAL INSTRUCTIONS TO ADMINISTER LASIX.
[2025-06-19 13:06] LABS: Lactic Acid level (Lactate) 3.6 mmol/L (0.5-2.2)
--- NOTE | 2025-06-19 13:59 | PC.PHAR ---
Patient states he took morning meds. I spoke to Pharmacy and they state Patient hasn't filled big meds since end of February . I left them on his med list with fill dates . He does have refills available.
--- NOTE | 2025-06-19 15:32 | ECG_ITS ---
[facility]: 2025-06-19 Pat Name: Pawan Marcum Department: Room: 256 Gender: Male Extension Course Counselor: : 1955 Requested By: Meli Jules Order Number: [id number] Spence MD: Honorio Scott M.D. Measurements Intervals Champion Rate: 71 P: 0 ID: 0 QRS: -77 QRSD: 194 T: 112 QT: 496 QTc: 540 Interpretive Statements ELECTRONIC VENTRICULAR PACEMAKER ABNORMAL RHYTHM ECG Compared to ECG 06/19/2025 11:35:28 No significant changes Electronically Signed On 06-20-2025 19:40:09 CDT by Honorio Scott M.D. [email or web address] [id number]
[2025-06-19 17:29] LABS: Troponin 5 6HR 143.7 ng/L (0-15)
[2025-06-19 17:30] LABS: Troponin 5 6HR Delta -10.3 ng/L (0-12)
--- NOTE | 2025-06-19 17:57 | PC.NURSE ---
notified Dr. Torres patient refuses to take Entresto. Dr. Scott told patient not to take, causing his breathing problems
--- NOTE | 2025-06-19 18:04 | PC.NURSE ---
Dr. Torres notified patient will not allow a cobb catheter due to having problems previously with one
--- NOTE | 2025-06-19 20:05 | PM.HP ---
Providers/Chief Complaint Admitting Physician: Davon Torres MD Primary Care Provider: BELLA Bahena Chief Complaint: both legs swellen/Hellouations History of Present Illness Pawan Marcum is a 70 year old male has had chronic leg swelling and cared for by his daughter Anjali Anne. She states that recently diuretics were increased and she was changing bandages on his legs 3-4 times a day but they were soaking through with weeping. Patient has shallow ulcers on his legs. Patient has been hallucinating and stated that his ex- and ex-'s boyfriend were in the parking lot. Anjali told her him to lock the doors and go to bed but what he was complaining of had never happened. He also called his daughter Anjali by his eldest daughter Sowmya's name even though Sowmya had at age 16. Patient told me it was 19 June 2025 but thought it was . Review of Systems Narrative: General No fevers chills Cardiovascular no chest pain Respiratory positive for cough and orthopnea GI positive for GERD no nausea vomiting diarrhea constipation no dysuria hematuria Neuro no seizures strokes limb weakness symptoms Medications/Allergies Home Medications ?Medication ?Instructions ?Recorded ?Confirmed ?Last Taken ?Type Blood pressure cuff and machine #1 ea 06/27/22 06/19/25 08/12/22 Rx o2 at 3L per nasal cannula #1 ea 08/11/22 06/19/25 08/12/22 Rx nitroglycerin 0.3 mg sublingual 0.3 mg sublingual Q5M PRN chest 10/08/22 06/19/25 Unknown Rx tablet pain #30 tabs Diabetic shoes with inserts #1 ea 04/24/23 06/19/25 Unknown Rx wheelchair #1 ea 06/02/24 06/19/25 Unknown Rx compressor, for nebulizer #1 ea 06/07/24 06/19/25 Unknown Rx nebulizer accessories #1 ea 06/07/24 06/19/25 Unknown 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 sensor (Dexcom G7 #3 ea 06/20/24 06/19/25 Unknown Rx Sensor device) 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,bleacher operator,cont #1 ea 06/20/24 06/19/25 Unknown Rx (Dexcom G7 Rag Room Supervisor) tamsulosin 0.4 mg capsule 0.4 mg PO BEDTIME 02/23/25 06/19/25 06/07/25 History levetiracetam 500 mg tablet 500 mg PO QDAY #30 tabs 02/24/25 06/19/25 06/19/25 08:00 Rx sildenafil 50 mg tablet (Viagra) 50 mg PO DAILY PRN sexual activity 02/24/25 06/19/25 03/30/25 Rx #10 tabs aspirin 81 mg tablet,delayed 81 mg PO DAILY #90 tabs 02/28/25 06/19/25 06/08/25 Rx release allopurinol 100 mg tablet 50 mg (1/2 x 100 mg) PO .EVERY 03/24/25 06/19/25 1 Day Ago Rx OTHER DAY #30 tabs ~03/30/25 tizanidine 4 mg tablet 4 mg PO .HS PRN Muscle Spasticity 04/06/25 06/19/25 Unknown Rx #90 tabs diabetic shoes with inserts #1 ea 04/13/25 06/19/25 Unknown Rx apixaban 5 mg tablet (Eliquis) 5 mg PO BID #180 tabs 04/14/25 06/19/25 06/08/25 Rx dapagliflozin propanediol 10 mg 10 mg PO DAILY #90 tabs 04/14/25 06/19/25 Unknown Rx tablet (Farxiga) dulaglutide 1.5 mg/0.5 mL 1.5 mg (0.5 mL) SUBCUT .weekly #6 04/14/25 06/19/25 06/06/25 Rx [facility] fenofibrate 160 mg tablet 160 mg PO DAILY #90 tabs 04/14/25 06/19/25 06/08/25 Rx Diabetic Shoes 3 x insoles #1 ea 04/18/25 06/19/25 Unknown Rx diabetic shoes with inserts #1 ea 05/17/25 06/19/25 Unknown Rx atorvastatin 40 mg tablet 40 mg PO QPM 06/08/25 06/19/25 06/07/25 History metolazone 2.5 mg tablet 2.5 mg PO .QOD 06/08/25 06/19/25 06/19/25 08:00 History cephalexin 500 mg capsule 500 mg PO BID #14 caps 06/15/25 06/19/25 06/19/25 08:00 Rx furosemide 20 mg tablet (Lasix) 20 mg PO DAILY #5 tabs 06/15/25 06/19/25 Unknown Rx furosemide 40 mg tablet (Lasix) 40 mg PO BID 1 day #2 tabs 06/15/25 06/19/25 Unknown Rx Allergies Allergy/AdvReac Type Severity Reaction Status Date / Time fentanyl Allergy Unknown Verified 06/15/25 09:16 lisinopril AdvReac Mild Coughing Verified 06/15/25 09:16 PFSH Acute PFSH: Medical History (Updated 06/19/25 @ 20:12 by Davon Torres MD) Venous stasis dermatitis of both lower extremities Atrial fibrillation Rotator cuff arthropathy of right shoulder Osteoarthritis of shoulders, bilateral Bilateral shoulder pain Pulmonary HTN Nonischemic cardiomyopathy Mixed hyperlipidemia Nonrheumatic aortic (valve) stenosis HTN (hypertension) Severe obstructive sleep apnea Nocturnal hypoxemia CAR[place]INA (obstructive sleep apnea) ARUNA (acute kidney injury) Bilateral foot pain Generalized weakness Acute encephalopathy Generalized muscle weakness Acute alteration in mental status Confusion Epistaxis Anticoagulation adequate with anticoagulant therapy Transaminitis Daytime sleepiness Enrolled in chronic care management Gout attack Acute and chronic respiratory failure with hypoxia Ascending aortic aneurysm Congestive heart failure Pneumonia Acute and chronic respiratory failure with hypoxia Erectile dysfunction Type 2 diabetes mellitus Chronic kidney disease Anemia Diarrhea Diabetic foot Idiopathic gout, right ankle and foot DDD (degenerative disc disease), lumbosacral Surgical History Hx of arthroscopy of left knee Hx of tooth extraction History of cardiac pacemaker Hx of heart surgery (2017) Aortic valve replacement and aneurysm repair Family History Mother CAD (coronary artery disease) Brother Cancer Other Diabetes mellitus, type 2 Hypertension Denies family history of Diabetes Clotting disorder Dementia Chronic kidney disease (CKD) Suicide Anesthesia complication Bleeding disorder Lung disease Stroke Social History (Updated 06/19/25 @ 20:10 by Davon Torres MD) Smoking and tobacco/nicotine status: former use of tobacco/nicotine Second hand smoke exposure: No Alcohol intake: current Alcohol intake frequency: 3 or more drinks per day Alcohol type: beer Alcohol use comment: Stop per his report 90 days ago as of 06/19/2025 Substance/Drug Use: never Additional social history: 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 He is in the midst of a divorce from his Anisha to whom he has been 15 years but for now he is still reporting her as next of kin. He wants full CODE STATUS Reconfirmed full CODE STATUS desired on 06/19/2025. Patient denies drug use or tobacco use he drink 2-3 beers a day but stopped 90 days ago Adopted: No Caregiver/support person: Yes (spouse) Lives independently: Yes Household members: spouse and children Housing: House Marital status: Number of children: 3 Number of grandchildren: 3 Highest education level completed: 6th Grade service: No Current occupational status: disabled Pets and animals: Yes Current gender identity: Male Special pola needs: No Agree to transfusion: Yes Vitals/I&O/Wt Last Vital Signs Temp 97.8 F 06/19/25 19:49 Pulse 71 06/19/25 19:49 Resp 17 06/19/25 19:49 BP 142/85 06/19/25 19:49 Pulse Ox 97 06/19/25 19:49 O2 Del Method Room Air 06/19/25 19:49 O2 Flow Rate 3 06/19/25 14:36 06/19/25 06/19/25 06/19/25 06:59 14:59 22:59 Intake Total 480 / 480 Balance 480 / 480 Weight last 48 hrs Weight 115.666 kg Weight 114.759 kg Physical Exam Narrative: General well-developed obese male in no acute cardiopulmonary stress CV regular rate and rhythm Lungs diminished breath sounds in the bases Abdomen positive bowel tones soft Calves 3+ weeping bilateral edema with chronic venous stasis changes there are shallow ulcers cannot exclude cellulitis Oral Mallampati 2 Data 06/19/25 10:23 06/19/25 10:23 Micro: Microbiology 06/19/25 10:26 Blood Culture - Preliminary Blood SPECIMEN COLLECTED 06/19/25 10:23 Blood Culture - Preliminary Blood SPECIMEN COLLECTED A&P Assessment and plan 1. Cellulitis: Will cover with cefazolin. White count is normal no fevers 2. Venous stasis dermatitis of both lower extremities: Start CPAP diuresis with furosemide metolazone and check BMP twice a day 3. Leg wound, right: Continue with dressing changes and leg elevation ERIN hose and pneumatic compression cuffs. Patient has been resistant to elevating his legs 4. Congestive heart failure: As above PDMP PDMP Reviewed: Not Reviewed Attestations Medical Necessity Statement*: Patient admitted to hospital and will require greater than 2 midnights in the hospital Coding Level of Care Code 31386 Diagnoses Cellulitis L03.90 Venous stasis dermatitis of both lower extremities I87.2 Leg wound, right S81.801A Congestive heart failure I50.9 Time Spent (min) 70
[2025-06-20] VITALS (9 sets, daily range): BP systolic 101–130; BP diastolic 71–91; PULSE 62–98; RESP 16–18; TEMP 36.3–36.7; O2SAT 91–97
[2025-06-20] MEDS: ceFAZolin 2,000 mg SDV 2000 MG IVP ×3 (04:29→21:22)
[2025-06-20] MEDS: FUROsemide 10 mg/mL SDV 10mL 80 MG IVP ×3 (04:29→21:24)
[2025-06-20 05:25] LABS: Hematocrit 30.2 % (37-53); Hemoglobin 8.90 g/dL (11.27-16.99); Mean Corpuscular HGB Conc 29.5 g/dL (30-55); Mean Corpuscular Hemoglobin 28.3 pg (27-33); Mean Corpuscular Volume 96.2 fl (82-101); Nucleated Red Blood Cells % 0.6 %; Platelet Count 80 10^3/cmm (157-399); Red Blood Count 3.14 10^6/uL (3.85-5.65); White Blood Count 6.18 10^3/uL (3.29-11.43)
[2025-06-20 06:00] LABS: Alanine Aminotransferase 90 U/L (0-41); Albumin Level 3.4 g/dL (3.5-5.2); Alkaline Phosphatase 47 U/L (40-130); Anion Gap 18.0 (5-19); Aspartate Amino Transferase 40 U/L (0-40); Blood Urea Nitrogen 53 mg/dL (8-23); Calcium 8.7 mg/dL (8.5-10.5); Carbon Dioxide 25 mmol/L (22-29); Chloride 96 mmol/L (98-107); Globulin 3.8 g/dL (1.3-4.6); Glucose 121 mg/dL (65-115); Osmolality Calculated 296 mOsm/kg (285-295); Potassium 4.0 mmol/L (3.5-5.1); Sodium 135 mmol/L (136-145); Total Protein 7.2 g/dL (6.6-8.7)
--- NOTE | 2025-06-20 07:16 | PM.CONSULT ---
Providers/Reason For Consult Consulting Physician/Specialty*: Dr. Faizan Ortega, Jhon.P.M./podiatry Reason for Consult*: Bilateral lower extremity edema venous insufficiency Attending Physician: Davon Torres MD Primary Care Provider: BELLA Bahena History of Present Illness History of Present Illness Pawan Marcum is a 70 year old male who presented to the emergency department with lower extremity swelling and hallucinations. Concern for cellulitis. Patient was admitted. Podiatry was consulted to evaluate lower extremities for edema. They have been wrapping his legs multiple times a day to try to keep up with the drainage. Review of Systems General: Reports: 10 or more systems reviewed and unremarkable except in HPI and below Const: Denies: fever(s), chills, body aches or change in appetite Eyes: Denies: change in vision or blurry vision Card: Denies: chest pain, palpitations or irregular heart rhythm Resp: Denies: dyspnea GI: Denies: abdominal pain, nausea, vomiting or diarrhea Musc: Reports: joint stiffness Skin/Breast: Reports: non-healing lesions and lesions Neuro: Reports: numbness in extremities Medications/Allergies Home Medications ?Medication ?Instructions ?Recorded ?Confirmed ?Last Taken ?Type Blood pressure cuff and machine #1 ea 06/27/22 06/19/25 08/12/22 Rx o2 at 3L per nasal cannula #1 ea 08/11/22 06/19/25 08/12/22 Rx nitroglycerin 0.3 mg sublingual 0.3 mg sublingual Q5M PRN chest 10/08/22 06/19/25 Unknown Rx tablet pain #30 tabs Diabetic shoes with inserts #1 ea 04/24/23 06/19/25 Unknown Rx wheelchair #1 ea 06/02/24 06/19/25 Unknown Rx compressor, for nebulizer #1 ea 06/07/24 06/19/25 Unknown Rx nebulizer accessories #1 ea 06/07/24 06/19/25 Unknown 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 sensor (Dexcom G7 #3 ea 06/20/24 06/19/25 Unknown Rx Sensor device) 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,vice principal,cont #1 ea 06/20/24 06/19/25 Unknown Rx (Dexcom G7 Field Appraiser) tamsulosin 0.4 mg capsule 0.4 mg PO BEDTIME 02/23/25 06/19/2506/07/25 History levetiracetam 500 mg tablet 500 mg PO QDAY #30 tabs 02/24/25 06/19/25 06/19/25 08:00 Rx sildenafil 50 mg tablet (Viagra) 50 mg PO DAILY PRN sexual activity 02/24/25 06/19/25 03/30/25 Rx #10 tabs aspirin 81 mg tablet,delayed 81 mg PO DAILY #90 tabs 02/28/25 06/19/25 06/08/25 Rx release allopurinol 100 mg tablet 50 mg (1/2 x 100 mg) PO .EVERY 03/24/25 06/19/25 1 Day Ago Rx OTHER DAY #30 tabs ~03/30/25 tizanidine 4 mg tablet 4 mg PO .HS PRN Muscle Spasticity 04/06/25 06/19/25 Unknown Rx #90 tabs diabetic shoes with inserts #1 ea 04/13/25 06/19/25 Unknown Rx apixaban 5 mg tablet (Eliquis) 5 mg PO BID #180 tabs 04/14/25 06/19/25 06/08/25 Rx dapagliflozin propanediol 10 mg 10 mg PO DAILY #90 tabs 04/14/25 06/19/25 Unknown Rx tablet (Farxiga) dulaglutide 1.5 mg/0.5 mL 1.5 mg (0.5 mL) SUBCUT .weekly #6 04/14/25 06/19/25 06/06/25 Rx subcutaneous pen injector mL ([facility]) fenofibrate 160 mg tablet 160 mg PO DAILY #90 tabs 04/14/25 06/19/25 06/08/25 Rx Diabetic Shoes 3 x insoles #1 ea 04/18/25 06/19/25 Unknown Rx diabetic shoes with inserts #1 ea 05/17/25 06/19/25 Unknown Rx atorvastatin 40 mg tablet 40 mg PO QPM 06/08/25 06/19/25 06/07/25 History metolazone 2.5 mg tablet 2.5 mg PO .QOD 06/08/25 06/19/25 06/19/25 08:00 History cephalexin 500 mg capsule 500 mg PO BID #14 caps 06/15/25 06/19/25 06/19/25 08:00 Rx furosemide 20 mg tablet (Lasix) 20 mg PO DAILY #5 tabs 06/15/25 06/19/25 Unknown Rx furosemide 40 mg tablet (Lasix) 40 mg PO BID 1 day #2 tabs 06/15/25 06/19/25 Unknown Rx Allergies Allergy/AdvReac Type Severity Reaction Status Date / Time fentanyl Allergy Unknown Verified 06/15/25 09:16 lisinopril AdvReac Mild Coughing Verified 06/15/25 09:16 Current Medications Generic Name Dose Route Start Last Admin Trade Name Gurwinderq PRN Reason Stop Dose Admin Allopurinol 50 mg 06/20/25 05:00 06/20/25 04:27 Allopurinol 100 Mg Tablet PO 50 mg EVERY OTHER DAY JOSÉ Administration Apixaban 5 mg 06/19/25 17:00 06/20/25 04:27 Apixaban 5 Mg Tablet PO 5 mg BID JOSÉ Administration Aspirin 81 mg 06/20/25 05:00 06/20/25 04:26 Aspirin 81 Mg Ec Tablet PO 81 mg DAILY JOSÉ Administration Atorvastatin Calcium 40 mg 06/19/25 17:00 06/19/25 20:51 Atorvastatin 40 Mg Tablet PO 40 mg QPM JOSÉ Administration Cefazolin Sodium 2,000 mg 06/19/25 21:00 06/20/25 04:29 Cefazolin 2,000 Mg Sdv IVP 06/26/25 05:01 2,000 mg Q8H JOSÉ Administration Protocol Fenofibrate 145 mg 06/20/25 05:00 06/20/25 04:27 Fenofibrate 145 Mg Tablet PO 145 mg DAILY JOSÉ Administration Furosemide 80 mg 06/19/25 12:45 06/20/25 04:29 Furosemide 10 Mg/Ml Sdv 10ml IVP 80 mg Q8H JOSÉ Administration Levetiracetam 500 mg 06/20/25 05:00 06/20/25 04:26 Levetiracetam 500 Mg Tablet PO 500 mg DAILY JOSÉ Administration Metolazone 5 mg 06/19/25 14:15 06/20/25 04:27 Metolazone 5 Mg Tablet PO 5 mg DAILY JOSÉ Administration Sacubitril/Valsartan 1 each 06/19/25 18:00 06/20/25 04:39 Sacubitril/Valsartan 24-26 Mg Tablet PO Not Given BID JOSÉ Tamsulosin HCl 0.4 mg 06/19/25 21:00 06/19/25 20:51 Tamsulosin 0.4 Mg Capsule PO 0.4 mg BEDTIME JOSÉ Administration PFSH Acute PFSH: Medical History (Updated 06/20/25 @ 18:52 by Faizan Ortega DPM) Venous stasis dermatitis of both lower extremities Atrial fibrillation Rotator cuff arthropathy of right shoulder Osteoarthritis of shoulders, bilateral Bilateral shoulder pain Pulmonary HTN Nonischemic cardiomyopathy Mixed hyperlipidemia Nonrheumatic aortic (valve) stenosis HTN (hypertension) Severe obstructive sleep apnea Nocturnal hypoxemia [place] (obstructive sleep apnea) ARUNA (acute kidney injury) Bilateral foot pain Generalized weakness Acute encephalopathy Generalized muscle weakness Acute alteration in mental status Confusion Epistaxis Anticoagulation adequate with anticoagulant therapy Transaminitis Daytime sleepiness Enrolled in chronic care management Gout attack Acute and chronic respiratory failure with hypoxia Ascending aortic aneurysm Congestive heart failure Pneumonia Acute and chronic respiratory failure with hypoxia Erectile dysfunction Type 2 diabetes mellitus Chronic kidney disease Anemia Diarrhea Diabetic foot Idiopathic gout, right ankle and foot DDD (degenerative disc disease), lumbosacral Surgical History Hx of arthroscopy of left knee Hx of tooth extraction History of cardiac pacemaker Hx of heart surgery (2017) Aortic valve replacement and aneurysm repair Family History Mother CAD (coronary artery disease) Brother Cancer Other Diabetes mellitus, type 2 Hypertension Denies family history of Diabetes Clotting disorder Dementia Chronic kidney disease (CKD) Suicide Anesthesia complication Bleeding disorder Lung disease Stroke Social History (Updated 06/19/25 @ 20:10 by Davon Torres MD) Smoking and tobacco/nicotine status: former use of tobacco/nicotine Second hand smoke exposure: No Alcohol intake: current Alcohol intake frequency: 3 or more drinks per day Alcohol type: beer Alcohol use comment: Stop per his report 90 days ago as of 06/19/2025 Substance/Drug Use: never Additional social history: 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 He is in the midst of a divorce from his Anisha to whom he has been 15 years but for now he is still reporting her as next of kin. He wants full CODE STATUS Reconfirmed full CODE STATUS desired on 06/19/2025. Patient denies drug use or tobacco use he drink 2-3 beers a day but stopped 90 days ago Adopted: No Caregiver/support person: Yes (spouse) Lives independently: Yes Household members: spouse and children Housing: House Marital status: Number of children: 3 Number of grandchildren: 3 Highest education level completed: 6th Grade service: No Current occupational status: disabled Pets and animals: Yes Current gender identity: Male Special pola needs: No Agree to transfusion: Yes Vitals/I&O/Wt Last Vital Signs Temp 98.0 F 06/20/25 04:00 Pulse 72 06/20/25 04:00 Resp 17 06/20/25 04:00 BP 127/86 06/20/25 04:00 Pulse Ox 91 06/20/25 04:00 O2 Del Method Room Air 06/20/25 04:00 O2 Flow Rate 3 06/19/25 14:36 06/19/25 06/20/25 06/20/25 22:59 06:59 14:59 Intake Total 480 / 480 Output Total 600 / 600 600 / 1200 Balance -120 / -120 -600 / -720 Weight last 48 hrs Weight 255 lb Weight 255 lb Weight 253 lb Physical Exam Narrative: BELOW IS A FOCUSED LOWER EXTREMITY EXAM GENERAL: A&O x 3 VASCULAR: DP/PT pulses diminished secondary to edema. +3 pitting edema bilateral lower extremities. DERMATOLOGICAL: Edematous bilateral lower extremities venous stasis changes. Superficial blister to right anterior garza no signs of infection. Active serous weeping from bilateral lower extremities consistent with venous insufficiency. MUSCULOSKELETAL: No gross musculoskeletal deformities NEUROLOGICAL: Neurological sensation to the affected foot and ankle is present through L4-S1 dermatomes with no hyper/hypoesthesias, negative Tinel or Valleix's sign Data 06/20/25 04:52 06/20/25 04:52 Micro: Microbiology 06/19/25 10:26 Blood Culture - Preliminary Blood SPECIMEN COLLECTED 06/19/25 10:23 Blood Culture - Preliminary Blood SPECIMEN COLLECTED A&P Assessment and plan 1. Venous stasis: Plan: Patient evaluated for bilateral lower extremity venous insufficiency. Serous blister to anterior right garza had been popped prior to my examination. No signs of infection. Unna boot applied to bilateral lower extremities with multilayer compression wrap. No surgical intervention by podiatry. This dressing can stay on for up to 7 days. If patient is discharged in coming days recommend follow-up with podiatry in the outpatient setting within 7 days from today 06/20/2025. Podiatry will evaluate patient tomorrow morning for dressing saturation. PDMP PDMP Reviewed: Not Reviewed Coding Level of Care Code Acute Code for Chg Fwd Diagnoses Venous stasis I87.8
--- NOTE | 2025-06-20 09:32 | PC.NURSE ---
pt gave verbal consent to speak with his daughter herman. i educ him that there was conflicting contact info in his chart and we wanted to make sure with him that we talked to correct person he wanted us to give information to. he confirmed that yes talk to herman davies.
--- NOTE | 2025-06-20 09:49 | PC.CHAP ---
Pastoral Care Encounter/Spiritual Assessment Type of Contact [] Declined bleach supervisor visit [] Patient/Family/Request visit [] Outpatient visit [] Follow-up visit [] Physician referral [] Code/Alert [x] Routine visit [] Staff referral [] Actively dying [] Patient sleeping [] Family support [] [] Out of room [] Palliative care [] [] Receiving care in room [] Pre-surgical visit [] Trauma [] Long length of stay [] ICU visit [] Other: Relational/Emotional Strength [x] Patient feels connected with others/family/visitors/staff [] Distress [] Loneliness/isolation [] Abandonment Spirituality of Patient [x] Person of Karla [] Attends Taoist of their Karla [x] Believes in Prayer [] Reads Bible or Buddhist materials [] There are Spiritual issues to be addressed Track Liner Operator Interventions [x] Prayer [x] Active listening [] Non-anxious presence [x] Spiritual/emotional support [] Crisis/trauma care [] Spiritual counseling [] Bereavement support [] Provided bereavement packet [] Provided Bible/devotional materials [] Provided toy/stuffed animal, coloring book to patient or family member [] Provided Communion [] Anointing/[place] [] Salvation [x] Completed spiritual assessment [] Other: x Impact on Illness or Injury [] Angry [] Fearful [] Anxious [] Often cries [] Exhaustion [] Unable to work [] Unable to attend yazidism [] Unable to walk/stand [] Unable to read [] Unable to drive [] Unable to eat/drink [] Unable to sleep [] Unable to be with family [] Patient intubated [] Other: Summary Time spent with patient 5 min
--- NOTE | 2025-06-20 16:07 | P.PN_ITS ---
Subjective 2 Subjective: 70-year-old male once again si tting in a chair with his legs down. He does have an Unna boot on. He tells me that he was in bed half the day and that he did sleep in bed last night. Tells me his legs have gone down and swelling and that his breathing is much better. Patient does not have a CPAP in the room and apparently was not treated with CPAP. He tells me that he was never presented with 1 to try. Vitals/I&O/Wt Last Vital Signs Temp 97.8 F 06/20/25 11:19 Pulse 98 06/20/25 11:19 Resp 17 06/20/25 11:19 BP 122/81 06/20/25 11:19 Pulse Ox 92 06/20/25 11:19 O2 Del Method Room Air 06/20/25 11:19 O2 Flow Rate 3 06/19/25 14:36 06/20/25 06/20/25 06/20/25 06:59 14:59 22:59 Intake Total 720 / 720 Output Total 600 / 1200 400 / 400 Balance -600 / -720 320 / 320 Weight last 48 hrs Weight 115.666 kg Weight 115.666 kg Weight 114.759 kg Physical Exam 2 Narrative: General well-developed obese male in no acute cardiopulmonary stress CV regular rate and rhythm Lungs diminished breath sounds in the bases with bibasilar crackles to the lower one third this does not completely clear with deep breaths Abdomen positive bowel tones soft Calves 2+ to 3 swelling with Unna boots in place Oral Mallampati 2 Data 06/20/25 04:52 06/20/25 04:52 Micro: Microbiology 06/19/25 10:26 Blood Culture - Preliminary Blood NEGATIVE TO DATE 06/19/25 10:23 Blood Culture - Preliminary Blood NEGATIVE TO DATE A&P Assessment and plan 1. Cellulitis: Will cover with cefazolin. White count is normal no fevers 2. Venous stasis dermatitis of both lower extremities: Start CPAP diuresis with furosemide metolazone and check BMP daily 3. Leg wound, right: Continue with dressing changes and leg elevation ERIN hose and pneumatic compression cuffs. Patient has been resistant to elevating his legs 4. Congestive heart failure: As above PDMP PDMP Reviewed: Not Reviewed Attestations 2 Medical Necessity Statement*: Patient remains in hospital to have CPAP diuresis but that has not been started yet. He will require greater than 2 midnights Coding Level of Care Code 73826 Diagnoses Cellulitis L03.90 Venous stasis dermatitis of both lower extremities I87.2 Leg wound, right S81.801A Congestive heart failure I50.9 Time Spent (min) 35
[2025-06-20 21:27] LABS: Alanine Aminotransferase 49 U/L (0-41); Albumin Level 3.3 g/dL (3.5-5.2); Alkaline Phosphatase 48 U/L (40-130); Anion Gap 16.7 (5-19); Aspartate Amino Transferase 38 U/L (0-40); Blood Urea Nitrogen 56 mg/dL (8-23); Calcium 8.9 mg/dL (8.5-10.5); Carbon Dioxide 28 mmol/L (22-29); Chloride 94 mmol/L (98-107); Globulin 4.2 g/dL (1.3-4.6); Glucose 148 mg/dL (65-115); Magnesium 2.1 mg/dL (1.7-2.3); Osmolality Calculated 298 mOsm/kg (285-295); Potassium 3.7 mmol/L (3.5-5.1); Sodium 135 mmol/L (136-145); Total Protein 7.5 g/dL (6.6-8.7)
[2025-06-21] VITALS (10 sets, daily range): BP systolic 79–95; BP diastolic 51–68; PULSE 66–104; RESP 17–25; TEMP 36.4–36.8; O2SAT 90–97
--- NOTE | 2025-06-21 04:25 | US_ITS ---
WS: [id number] RIGHT UPPER QUADRANT ULTRASOUND HISTORY: cirrhosis? COMPARISON: 09/17/2023 Liver: 12.6 cm in length. Small liver. No intrahepatic duct dilatation or mass. Portal Vein: Bidirectional flow within the portal vein. Gallbladder: Gallbladder is present with stones. Diffuse gallbladder wall thickening is probably on the basis of hepatocellular disease. There is no pericholecystic fluid. CBD: 0.5 cm Pancreas: Obscured. Right kidney: 10.3 cm in length. Normal size and echogenicity. No hydronephrosis or mass. Aorta and IVC: Unremarkable abdominal aorta and IVC. No ascites. US/US liver [id number] IMPRESSION: 1. Cholelithiasis without evidence for acute cholecystitis. 2. Diffuse gallbladder wall thickening but no pericholecystic fluid. No Sparks 's sign. Gallbladder wall thickening is probably related to hepatocellular dise ase. 3. Bidirectional flow in the portal vein suggesting changes of portal venous h ypertension.
[2025-06-21 05:17] LABS: Hematocrit 33.6 % (37-53); Hemoglobin 9.90 g/dL (11.27-16.99); Mean Corpuscular HGB Conc 29.5 g/dL (30-55); Mean Corpuscular Hemoglobin 28.0 pg (27-33); Mean Corpuscular Volume 95.2 fl (82-101); Nucleated Red Blood Cells % 0.4 %; Platelet Count 88 10^3/cmm (157-399); Red Blood Count 3.53 10^6/uL (3.85-5.65); White Blood Count 5.48 10^3/uL (3.29-11.43)
[2025-06-21 05:34] LABS: Ammonia 18 umol/L (16-60)
[2025-06-21 05:36] LABS: Alanine Aminotransferase 32 U/L (0-41); Albumin Level 3.2 g/dL (3.5-5.2); Alkaline Phosphatase 44 U/L (40-130); Anion Gap 18.1 (5-19); Aspartate Amino Transferase 38 U/L (0-40); Blood Urea Nitrogen 56 mg/dL (8-23); Calcium 8.6 mg/dL (8.5-10.5); Carbon Dioxide 27 mmol/L (22-29); Chloride 94 mmol/L (98-107); Globulin 4.1 g/dL (1.3-4.6); Glucose 121 mg/dL (65-115); Osmolality Calculated 299 mOsm/kg (285-295); Potassium 3.1 mmol/L (3.5-5.1); Sodium 136 mmol/L (136-145); Total Protein 7.3 g/dL (6.6-8.7)
[2025-06-21] MEDS: ceFAZolin 2,000 mg SDV 2000 MG IVP ×3 (05:41→20:44)
--- NOTE | 2025-06-21 06:04 | PC.NURSE ---
At approximately 04:14 was notified for the pt becoming confused and even agitated at times. Vitals were also provided at that time. He was also having hallucinations of seeing items that were not there and thinking he was in a complete different place than the hospital. Dr. Krishnamurthy came to see the pt and entered new orders.
[2025-06-21] MEDS: albumin 25 G/100 ML BAG 60 G IV (06:54)
[2025-06-21] MEDS: multivitamin therapeutic Tablet 1 TAB PO (06:56)
[2025-06-21] MEDS: thiamine 100 mg/mL 2mL SDV IM (08:47)
--- NOTE | 2025-06-21 12:01 | PC.SOCIAL ---
IMM Updated Updated pt on IMM. No questions voiced. Provided pt a copy. Initialed, dated, & timed a copy & placed in chart.
--- NOTE | 2025-06-21 18:17 | P.PN_ITS ---
Subjective 2 Subjective: 70-year-old male with hypotens ion overnight and confusion cramps. Potassium replaced diuretics held along with his Entresto. Liver ultrasound ordered but the patient ate and so has to be n.p.o. again for tomorrow morning. I gave patient a fluid bolus 500 cc saline back earlier today. Blood pressure improved a little to 85/68. Patient states he feels much better breathing better less abdominal distention and less swelling in the legs. He has tolerated BiPAP. Patient is not a CO2 retainer but RT was more comfortable with BiPAP, better machine etc. Vitals/I&O/Wt Last Vital Signs Temp 97.6 F 06/21/25 15:37 Pulse 71 06/21/25 15:37 Resp 20 H 06/21/25 15:37 BP 85/68 06/21/25 15:37 Pulse Ox 97 06/21/25 15:37 O2 Del Method BiPAP 06/21/25 15:37 O2 Flow Rate 3 06/19/25 14:36 FiO2 25 06/21/25 15:16 06/21/25 06/21/25 06/21/25 06:59 14:59 22:59 Intake Total 100 / 100 500 / 600 Output Total 1500 / 3000 850 / 850 Balance -1500 / -1920 -750 / -750 500 / -250 Weight last 48 hrs Weight 115.269 kg Weight 115.666 kg Physical Exam 2 Narrative: General well-developed obese male in no acute cardiopulmonary stress CV regular rate and rhythm Lungs minimally diminished breath sounds in the right dependent base base with the patient laying on his right side Abdomen positive bowel tones soft less distended Calves 2+ swelling with Unna boots in place Mentation patient is alert oriented cooperative Data 06/21/25 05:05 06/21/25 05:05 A&P Assessment and plan 1. Cellulitis: Will cover with cefazolin. White count is normal no fevers 2. Venous stasis dermatitis of both lower extremities: Continue BiPAP hold diuretics for now due to hypotension. Patient is being evaluated for possible cirrhosis with ultrasound liver intended for tomorrow ordered by Dr. Narvaez 3. Leg wound, right: Continue with dressing changes and leg elevation patient is elevating his legs both times I came by today sleeping in bed with BiPAP on 4. Congestive heart failure: As above PDMP PDMP Reviewed: Not Reviewed Attestations 2 Medical Necessity Statement*: Patient ronni hospitalized for BiPAP support and diuresis as tolerated. Expected to require greater than 2 midnights in the hospital Coding Level of Care Code 26558 Diagnoses Cellulitis L03.90 Venous stasis dermatitis of both lower extremities I87.2 Leg wound, right S81.801A Congestive heart failure I50.9 Time Spent (min) 35
[2025-06-22] VITALS (12 sets, daily range): BP systolic 69–128; BP diastolic 44–80; PULSE 68–73; RESP 16–22; TEMP 36.4–36.7; O2SAT 90–97
[2025-06-22 04:13] LABS: Alanine Aminotransferase 7 U/L (0-41); Albumin Level 3.0 g/dL (3.5-5.2); Alkaline Phosphatase 37 U/L (40-130); Anion Gap 12.9 (5-19); Aspartate Amino Transferase 35 U/L (0-40); Blood Urea Nitrogen 59 mg/dL (8-23); Calcium 8.2 mg/dL (8.5-10.5); Carbon Dioxide 29 mmol/L (22-29); Chloride 100 mmol/L (98-107); Globulin 3.0 g/dL (1.3-4.6); Glucose 100 mg/dL (65-115); Osmolality Calculated 303 mOsm/kg (285-295); Potassium 3.9 mmol/L (3.5-5.1); Sodium 138 mmol/L (136-145); Total Protein 6.0 g/dL (6.6-8.7)
[2025-06-22] MEDS: ceFAZolin 2,000 mg SDV 2000 MG IVP ×2 (05:50→16:34)
[2025-06-22] MEDS: multivitamin therapeutic Tablet 1 TAB PO (05:50)
--- NOTE | 2025-06-22 09:50 | P.PN_ITS ---
Subjective 2 Subjective: Patient seen at bedside this morning. Dangling legs off edge of bed despite instructions to keep them elevated. No overnight events. Vitals/I&O/Wt Last Vital Signs Temp 97.5 F L 06/22/25 07:43 Pulse 71 06/22/25 08:02 Resp 16 06/22/25 08:02 BP 71/44 06/22/25 08:41 Pulse Ox 90 06/22/25 08:02 O2 Del Method Room Air 06/22/25 08:02 O2 Flow Rate 3 06/19/25 14:36 FiO2 25 06/21/25 20:00 06/21/25 06/22/25 06/22/25 22:59 06:59 14:59 Intake Total 500 / 600 480 / 480 Output Total 950 / 1800 0 / 1800 Balance -450 / -1200 0 / -1200 480 / 480 Weight last 48 hrs Weight 256 lb Weight 254 lb 2 oz Physical Exam 2 Narrative: BELOW IS A FOCUSED LOWER EXTREMITY EXAM GENERAL: A&O x 3 VASCULAR: DP/PT pulses diminished secondary to edema. +3 pitting edema bilateral lower extremities. DERMATOLOGICAL: Edematous bilateral lower extremities venous stasis changes. Superficial blister to right anterior garza no signs of infection. Active serous weeping from bilateral lower extremities consistent with venous insufficiency. MUSCULOSKELETAL: No gross musculoskeletal deformities NEUROLOGICAL: Neurological sensation to the affected foot and ankle is present through L4-S1 dermatomes with no hyper/hypoesthesias, negative Tinel or Valleix's sign Data 06/21/25 05:05 06/22/25 03:25 A&P Assessment and plan 1. Venous stasis: Plan: Patient evaluated for bilateral lower extremity venous insufficiency. Serous blister to anterior right garza had been popped prior to my examination. No signs of infection. Dressing changed at bedside this morning. No signs of infection. Edema has improved significantly. This is despite patient maintaining dependent position of legs off edge of bed. Stressed importance of elevation and compression therapy. Multilayer compression wrap applied to bilateral lower extremities right anterior leg wound dressed with Hydrofera Blue. Patient is okay to discharge from podiatry standpoint. Recommend follow-up at wound care within 7 days of discharge. PDMP PDMP Reviewed: Not Reviewed Attestations 2 Medical Necessity Statement*: See hospitalist note Coding Level of Care Code Acute Code for Chg Fwd Diagnoses Venous stasis I87.8
[2025-06-22 10:10] LABS: Levetiracetam Immunoassy 8.4 mcg/mL (6.0-46.0)
--- NOTE | 2025-06-22 12:38 | P.PN_ITS ---
Subjective 2 Subjective: 70-year-old male with hypotens ion intermittently since admission. He has been up walking around and not dizzy or falling. He states that his blood pressure is low often in the 70s and his primary care provider has talked about trying to treat this but has not thus far. Patient has not had hypothermia or hypoglycemia. Patient denies chest pain Patient reports his breathing to be much improved and edema decreased. Weight and I's and O's not accurate due to patient declined Salazar and his weights are not standing scale weights that are accurate Vitals/I&O/Wt Last Vital Signs Temp 97.5 F L 06/22/25 11:23 Pulse 69 06/22/25 11:23 Resp 19 H 06/22/25 11:23 BP 105/69 06/22/25 11:23 Pulse Ox 95 06/22/25 11:23 O2 Del Method Room Air 06/22/25 11:23 O2 Flow Rate 3 06/19/25 14:36 FiO2 25 06/21/25 20:00 06/21/25 06/22/25 06/22/25 22:59 06:59 14:59 Intake Total 500 / 600 480 / 480 Output Total 950 / 1800 0 / 1800 Balance -450 / -1200 0 / -1200 480 / 480 Weight last 48 hrs Weight 116.12 kg Weight 115.269 kg Physical Exam 2 Narrative: General well-developed obese male in no acute cardiopulmonary stress CV regular rate and rhythm Lungs minimally diminished breath sounds in the bases trace basilar crackles Abdomen positive bowel tones soft less distended Calves 2+ swelling with Unna boots in place Mentation patient is alert oriented cooperative Data 06/21/25 05:05 06/22/25 03:25 A&P Assessment and plan 1. Cellulitis: Continue cefazolin. White count is normal no fevers. Continue Unna boot 2. Venous stasis dermatitis of both lower extremities: Continue BiPAP hold diuretics for now due to hypotension. Liver ultrasound no cirrhosis 3. Leg wound, right: Continue with dressing changes and leg elevation patient is elevating his legs both times I came by today sleeping in bed with BiPAP on 4. Congestive heart failure: As above 5. Hypotension: Start midodrine and Florinef based on cortisol level 9 in the setting of blood pressure 69/44 heart rate 70. TSH was 1.82 on 06/05/2025 cortisol today 9.42 PDMP PDMP Reviewed: Not Reviewed Attestations 2 Medical Necessity Statement*: Patient remains in the hospital for diuresis and treatment for hypotension to allow diuresis and we will crier greater than 2 midnights Coding Level of Care Code 26941 Diagnoses Cellulitis L03.90 Venous stasis dermatitis of both lower extremities I87.2 Leg wound, right S81.801A Congestive heart failure I50.9 Hypotension I95.9 Time Spent (min) 35
[2025-06-22] MEDS: HYDROcodone-acetaminophen 5-325 mg Tablet 1 TAB PO ×2 (16:34→23:18)
[2025-06-23 03:53] VITALS: BP 119/80; PULSE 70; RESP 20; TEMP 36.4; O2SAT 94
[2025-06-23] MEDS: multivitamin therapeutic Tablet 1 TAB PO (04:51)
[2025-06-23] MEDS: ceFAZolin 2,000 mg SDV 2000 MG IVP ×2 (04:51→18:20)
[2025-06-23] MEDS: DAPAGLIFLOZIN 10 MG TABLET PO (05:38)
[2025-06-23 05:41] LABS: Anion Gap 13.4 (5-19); Blood Urea Nitrogen 60 mg/dL (8-23); Calcium 8.4 mg/dL (8.5-10.5); Carbon Dioxide 29 mmol/L (22-29); Chloride 96 mmol/L (98-107); Glucose 100 mg/dL (65-115); Osmolality Calculated 295 mOsm/kg (285-295); Potassium 4.4 mmol/L (3.5-5.1); Sodium 134 mmol/L (136-145)
[2025-06-23 07:57] VITALS: BP 88/69; PULSE 70; RESP 18; TEMP 36.4; O2SAT 92
--- NOTE | 2025-06-23 08:48 | PC.SOCIAL ---
IMM Updated Updated pt on IMM. No questions voiced. Provided pt a copy. Initialed, dated, & timed copy in chart.
[2025-06-23 09:05] VITALS: PULSE 74; RESP 20; O2SAT 96
[2025-06-23 12:00] VITALS: BP 94/60; PULSE 78; RESP 18; TEMP 36.4; O2SAT 96
--- NOTE | 2025-06-23 15:42 | P.PN_ITS ---
Subjective 2 Subjective: 70-year-old male with hypotens ion intermittently since admission. He has been up walking around and not dizzy or falling. He states that his blood pressure is low often in the 70s and his primary care provider has talked about trying to treat this but has not thus far. We started him on midodrine and Florinef yesterday and blood pressures improved to 94/60. Patient states he feels better and he is breathing a lot better. I had held his diuretics yesterday due to hypotension. He received a dose of albumin on 06/21/[address] Krishnamurthy. Today patient has been having nosebleeds. It had bloodied up the room but now has been cleaned. Patient states that he thinks is the apixaban and he has been on that for A-fib but has never had a blood clot in his legs or lungs or stroke from A-fib. He thinks it needs to be stopped Vitals/I&O/Wt Last Vital Signs Temp 97.6 F 06/23/25 12:00 Pulse 78 06/23/25 12:00 Resp 18 06/23/25 12:00 BP 94/60 06/23/25 12:00 Pulse Ox 96 06/23/25 12:00 O2 Del Method Room Air 06/23/25 12:00 O2 Flow Rate 3 06/19/25 14:36 FiO2 25 06/22/25 20:28 06/23/25 06/23/25 06/23/25 06:59 14:59 22:59 Intake Total 1160 / 1160 Output Total 200 / 500 400 / 400 Balance -200 / 760 760 / 760 Weight last 48 hrs Weight 116.12 kg Physical Exam 2 Narrative: General well-developed obese male in no acute cardiopulmonary stress CV regular rate and rhythm Lungs minimally diminished breath sounds in the bases trace basilar crackles Abdomen positive bowel tones soft less distended Calves 2+ swelling with Aldo wrap's. I remove this and looked at his right leg wound this is shallow and healing and there is no longer weeping but leg is still with 2+ edema Mentation patient is alert oriented cooperative Data 06/21/25 05:05 06/23/25 04:28 A&P Assessment and plan 1. Cellulitis: Continue cefazolin. White count is normal no fevers. Continue Aldo wrap 2. Venous stasis dermatitis of both lower extremities: Continue BiPAP and restart diuretic. Liver ultrasound no cirrhosis 3. Leg wound, right: Continue with dressing changes and leg elevation patient is elevating his legs. Patient states he had CPAP 2 years ago but he did wear it so the company came and took it back. He is willing to wear it now. He is accompanied by 2 family members 4. Congestive heart failure: As above need to get him set up with CPAP 5. Hypotension: Start midodrine and Florinef based on cortisol level 9 in the setting of blood pressure 69/44 heart rate 70. TSH was 1.82 on 06/05/2025 cortisol today 9.42 PDMP PDMP Reviewed: Not Reviewed Attestations 2 Medical Necessity Statement*: Patient remains in the hospital for diuresis reschedule for CPAP restart. Anticipate discharge in 1 to 2 days Coding Level of Care Code 73183 Diagnoses Cellulitis L03.90 Venous stasis dermatitis of both lower extremities I87.2 Leg wound, right S81.801A Congestive heart failure I50.9 Hypotension I95.9 Time Spent (min) 35
[2025-06-23 16:25] VITALS: BP 103/58; PULSE 77; RESP 18; TEMP 36.6; O2SAT 93
[2025-06-23] MEDS: FUROsemide 10 mg/mL SDV 10mL 80 MG IVP (18:20)
[2025-06-23 20:00] VITALS: BP 98/66; PULSE 71; RESP 18; TEMP 36.8; O2SAT 90
[2025-06-24] VITALS (27 sets, daily range): BP systolic 66–143; BP diastolic 40–116; PULSE 67–111; RESP 16–27; TEMP 36.1–36.8; O2SAT 85–97
[2025-06-24] MEDS: FUROsemide 10 mg/mL SDV 10mL 80 MG IVP ×2 (04:26→16:23)
[2025-06-24] MEDS: HYDROcodone-acetaminophen 5-325 mg Tablet 1 TAB PO (04:27)
[2025-06-24] MEDS: multivitamin therapeutic Tablet 1 TAB PO (04:28)
[2025-06-24] MEDS: DAPAGLIFLOZIN 10 MG TABLET PO (04:28)
[2025-06-24] MEDS: ceFAZolin 2,000 mg SDV 2000 MG IVP ×2 (04:30→16:23)
[2025-06-24 05:54] LABS: Anion Gap 13.3 (5-19); Blood Urea Nitrogen 67 mg/dL (8-23); Calcium 8.2 mg/dL (8.5-10.5); Carbon Dioxide 29 mmol/L (22-29); Chloride 99 mmol/L (98-107); Glucose 123 mg/dL (65-115); Osmolality Calculated 305 mOsm/kg (285-295); Potassium 4.3 mmol/L (3.5-5.1); Sodium 137 mmol/L (136-145)
--- NOTE | 2025-06-24 07:43 | XRR_ITS ---
PROCEDURE INFORMATION: Exam: XR Chest Exam date and time: 06/24/2025 9:55 AM Age: 70 years old Clinical indication: Cough; Prior surgery; Surgery date: 6+ months; Surgery type: Cabg, valve replacement, pacemaker; [facility]; Additional info: Follow up [facility] bipap diuresis TECHNIQUE: Imaging protocol: Radiologic exam of the chest. Views: 1 view. COMPARISON: CR XR chest 1V portable [id number] 06/19/2025 9:47 AM FINDINGS: Tubes, catheters and devices: Stable left subclavian pacer. Lungs: Central pulmonary vascular congestion with mild interstitial prominence, similar to prior. No new airspace disease. Hypoventilatory changes again seen along the lung bases. Pleural spaces: Unremarkable. No pleural effusion. No pneumothorax. Heart/Mediastinum: Stable cardiomegaly. Vasculature: Atherosclerotic aortic calcifications. Bones/joints: Post median sternotomy. XR/XR chest 1V portable [id number] IMPRESSION: Stable cardiomegaly with similar mild CHF.
--- NOTE | 2025-06-24 07:43 | USCV_ITS ---
Pawan Marcum Age: 70 Gender: M : 1955 Exam Date: 06/24/2025 08:54 Ordering Phys: Davon Torres MD Technologist: Darvin Weeks Exam Location: [facility] [place] Indication: severe chf unable to diurese BP: 95 / 54 HR: 69 Rhythm: Other Technical Quality: Adequate MEASUREMENTS (Male / Female) Normal Values 2D ECHO LV Diastolic Diameter PLAX 6.6 cm 4.2 - 5.9 / 3.9 - 5.3 cm IVS Diastolic Thickness 1.6 cm 0.6 - 1.0 / 0.6 - 0.9 cm IVS Systolic Thickness 1.5 cm LVPW Diastolic Thickness 1.0 cm 0.6 - 1.0 / 0.6 - 0.9 cm LVPW Systolic Thickness 1.3 cm LVOT Diameter 2.3 cm LV Ejection Fraction 2D Teich 42.8 % LV Ejection Fraction MOD 4C 45.8 % LV Ejection Fraction MOD 2C 44.7 % LV Ejection Fraction 2C AL 43.0 % LA Diameter 4.7 cm RA Systolic Volume 4C AL 124.5 ml RA Systolic Volume 4C MOD 120.4 ml LA Sys Volume AL 213.3 cm cubed LA Sys Volume Index AL 90.0 cm cubed/m squared Aorta at Sinotubular Diameter 5.3 cm IVC Diameter 2.0 cm M-MODE LA Ao Ratio MM 1.2 AV Cusp Separation MM 1.4 cm DOPPLER AV Peak Velocity 471.0 cm/s LVOT Peak Velocity 68.0 cm/s AV Area Cont Eq vti 0.6 cm squared AV Area Cont Eq pk 0.6 cm squared MV Peak Velocity 150.0 cm/s MV Area PHT 6.6 cm squared Mitral E to A Ratio 1.9 TV Peak Velocity 412.0 cm/s TR Peak Velocity 489.0 cm/s TR Peak Gradient 95.6 mmHg TR Mean Velocity 327.0 cm/s TR Mean Gradient 52.7 mmHg TR Velocity Time Integral 119.8 cm PV Peak Velocity 101.0 cm/s RV Ejection Time 0.3 s FINDINGS Left Ventricle Moderately increased left ventricular cavity size. Severely decreased left ventricular systolic function. Left ventricular ejection fraction is estimated at 30 %. There appeared to be septal bounce which could be secondary to interventricular conduction delay or paced rhythm.Grade III/IV diastolic dysfunction (restrictive filling pattern), severely elevated filling pressures. Right Ventricle Normal right ventricular size and systolic function. Catheter/pacemaker wire visualized in the right ventricle. Right Atrium Normal right atrial size. Catheter/pacemaker wire in the right atrial cavity. Left Atrium Mildly increased left atrial size. IA Septum Normal appearance of the interatrial septum. Mitral Valve Moderately thickened mitral valve. Moderate mitral annular calcification. No mitral valve stenosis. Moderate mitral valve regurgitation. Aortic Valve There appeared to be bioprosthetic valve sitting in a normal position, it appeared to be moderate to severely stenotic, mean gradient 54 mmHg, DESIRE 0.62 cm squared. Mild to moderate aortic valve regurgitation. Tricuspid Valve Mild tricuspid valve regurgitation. Pulmonic Valve Normal pulmonic valve structure. No pulmonic valve stenosis or regurgitation. Pericardium No pericardial effusion. Aorta Normal diameter of the aortic root and ascending thoracic aorta. IVC Normal IVC diameter. CONCLUSIONS Moderately increased left ventricular cavity size. Severely decreased left ventricular systolic function. Left ventricular ejection fraction is estimated at 30 %. There appeared to be septal bounce which could be secondary to interventricular conduction delay or paced rhythm.Grade III/IV diastolic dysfunction (restrictive filling pattern), severely elevated filling pressures. There appeared to be bioprosthetic valve sitting in a normal position, it appeared to be moderate to severely stenotic, mean gradient 54 mmHg, DESIRE 0.62 cm squared. Mild to moderate aortic valve regurgitation. Moderately thickened mitral valve. Moderate mitral annular calcification. No mitral valve stenosis. Moderate mitral valve regurgitation. Mild tricuspid valve regurgitation. Normal right ventricular size and systolic function. Catheter/pacemaker wire visualized in the right ventricle. There is no pericardial effusion. Right atrial pressure is around 10 mm of mercury. Riddhi Pena MD (Electronically Signed) Final Date: 24 June 2025 23:29 S
--- NOTE | 2025-06-24 13:06 | P.PN_ITS ---
Subjective 2 Subjective: 70-year-old male with hypotens ion intermittently since admission. He has been up walking around and not dizzy or falling. He states that his blood pressure is low often in the 70s and his primary care provider has talked about trying to treat this but has not thus far. We started him on midodrine and Florinef yesterday and blood pressures improved to 94/60. Patient states he feels better and he is breathing a lot better. I had held his diuretics yesterday due to hypotension. He received a dose of albumin on 06/21/[address] Krishnamurthy. On 06/23/2025 patient was having nosebleeds. It had bloodied up the room but now has been cleaned. Patient states that he thinks is the apixaban and he has been on that for A-fib but has never had a blood clot in his legs or lungs or stroke from A-fib. We agreed to stop his apixaban. No further nosebleeds today. 06/24/2025 blood pressure low again Patient is anxious to leave the hospital. I discussed with him dobutamine diuresis but he is thinking about it and then told the nurse that he did want to do it. I have asked Dr. Pena to see him regarding low EF and need for diuresis and possible pacer defibrillator or resynchronization as Dr. Pena recommended on preliminary consideration. Vitals/I&O/Wt Last Vital Signs Temp 97.5 F L 06/24/25 11:27 Pulse 67 06/24/25 11:27 Resp 16 06/24/25 11:27 BP 93/45 06/24/25 11:27 Pulse Ox 93 06/24/25 11:27 O2 Del Method Room Air 06/24/25 11:27 O2 Flow Rate 2 06/24/25 07:59 FiO2 25 06/22/25 20:28 06/23/25 06/24/25 06/24/25 22:59 06:59 14:59 Intake Total 480 / 1640 1080 / 1080 Output Total 100 / 500 1000 / 1000 Balance 380 / 1140 80 / 80 Weight last 48 hrs Weight 111.3 kg Physical Exam 2 Narrative: General well-developed obese male in no acute cardiopulmonary stress CV regular rate and rhythm Lungs minimally diminished breath sounds in the bases trace basilar crackles Abdomen positive bowel tones soft less distended Calves 2+ swelling with Aldo wrap's. Mentation patient is alert oriented irritable this morning somewhat argumentative Data 06/21/25 05:05 06/24/25 04:41 Micro: Microbiology 06/19/25 10:26 Blood Culture - Final Blood NO GROWTH AFTER 5 DAYS 06/19/25 10:23 Blood Culture - Final Blood NO GROWTH AFTER 5 DAYS A&P Assessment and plan 1. Cellulitis: Continue cefazolin. White count is normal no fevers. Continue Aldo wrap 2. Venous stasis dermatitis of both lower extremities: Continue BiPAP and restart diuretic. Liver ultrasound no cirrhosis Patient is agreeable to CPAP at home 3. Leg wound, right: Continue with dressing changes and leg elevation patient is elevating his legs. Patient states he had CPAP 2 years ago but he did wear it so the company came and took it back. He is willing to wear it now. He is accompanied by 2 family members 4. Congestive heart failure: This is severe with widened QRS and history of aortic valve replacement. I spoke with Dr. Renae who will see him. Dr. Pena concurs with dobutamine diuresis but states that once he is euvolemic he would recommend the patient have biventricular pacing. Patient will need to see an EP physician for that. Patient has been reluctant and has had poor compliance with follow-up. 5. Hypotension: Start midodrine and Florinef based on cortisol level 9 in the setting of blood pressure 69/44 heart rate 70. 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 Anticipate greater than 2 midnights in the hospital Coding Level of Care Code 03628 Diagnoses Cellulitis L03.90 Venous stasis dermatitis of both lower extremities I87.2 Leg wound, right S81.801A Congestive heart failure I50.9 Hypotension I95.9 Time Spent (min) 35
--- NOTE | 2025-06-24 13:53 | PM.CONSULT ---
Providers/Reason For Consult Consulting Physician/Specialty*: Riddhi Pena MD/cardiology Reason for Consult*: Worsening of heart failure with low cardiac output heart failure Severely depressed left ventricular ejection fraction Status post aortic valve replacement with moderate bioprosthetic stenosis Requesting Physician: Dr. Torres Attending Physician: Davon Torres MD Primary Care Provider: PACHECO [facility] History of Present Illness History of Present Illness Pawan Marcum is a 70 year old male past medical history significant for hypertension obesity questionable compliance permanent pacemaker history of aortic valve replacement by Dr. Demond Fitzpatrick at [facility] in 2014, cardiomyopathy with moderate to severely depressed left ventricular ejection fraction known to since 2021, chronic kidney disease, last transesophageal echocardiogram suggestive of ejection fraction moderately depressed around 35 to 40% while 2D echo was suggestive of severely depressed below 35%. Patient presented with worsening of shortness of breath PND orthopnea lower extremity edema he was tried to diurese but given his low blood pressure hard to get rid of fluid. It is the reason we have been asked to assist in his care. Currently denies any chest pain but admits to shortness of breath orthopnea he has lower extremity edema with weeping skin Review of Systems General: Reports: 10 or more systems reviewed and unremarkable except in HPI and below Narrative: General No fevers chills Cardiovascular no chest pain Respiratory positive for cough and orthopnea GI positive for GERD no nausea vomiting diarrhea constipation no dysuria hematuria Neuro no seizures strokes limb weakness symptoms Const: Denies: fever(s), chills, body aches or change in appetite Eyes: Denies: change in vision, blurry vision or photophobia ENMT: Denies: enlarged tonsils Card: Denies: chest pain, palpitations or irregular heart rhythm Resp: Denies: dyspnea GI: Denies: abdominal pain, nausea, vomiting or diarrhea Musc: Reports: joint stiffness; Denies: joint warmth Skin/Breast: Reports: non-healing lesions and lesions Neuro: Reports: numbness in extremities All/Imm: Denies: acute wheezing Medications/Allergies Home Medications ?Medication ?Instructions ?Recorded ?Confirmed ?Last Taken ?Type Blood pressure cuff and machine #1 ea 06/27/22 06/19/25 08/12/22 Rx o2 at 3L per nasal cannula #1 ea 08/11/22 06/19/25 08/12/22 Rx nitroglycerin 0.3 mg sublingual 0.3 mg sublingual Q5M PRN chest 10/08/22 06/19/25 Unknown Rx tablet pain #30 tabs Diabetic shoes with inserts #1 ea 04/24/23 06/19/25 Unknown Rx wheelchair #1 ea 06/02/24 06/19/25 Unknown Rx compressor, for nebulizer #1 ea 06/07/24 06/19/25 Unknown Rx nebulizer accessories #1 ea 06/07/24 06/19/25 Unknown 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 sensor (Dexcom G7 #3 ea 06/20/24 06/19/25 Unknown Rx Sensor device) 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,trout farmer,cont #1 ea 06/20/24 06/19/25 Unknown Rx (Dexcom G7 Bead Wire Insulator) tamsulosin 0.4 mg capsule 0.4 mg PO BEDTIME 02/23/25 06/19/25 06/07/25 History levetiracetam 500 mg tablet 500 mg PO QDAY #30 tabs 02/24/25 06/19/25 06/19/25 08:00 Rx sildenafil 50 mg tablet (Viagra) 50 mg PO DAILY PRN sexual activity 02/24/25 06/19/25 03/30/25 Rx #10 tabs aspirin 81 mg tablet,delayed 81 mg PO DAILY #90 tabs 02/28/25 06/19/25 06/08/25 Rx release allopurinol 100 mg tablet 50 mg (1/2 x 100 mg) PO .EVERY 03/24/25 06/19/25 1 Day Ago Rx OTHER DAY #30 tabs ~03/30/25 tizanidine 4 mg tablet 4 mg PO .HS PRN Muscle Spasticity 04/06/25 06/19/25 Unknown Rx #90 tabs diabetic shoes with inserts #1 ea 04/13/25 06/19/25 Unknown Rx apixaban 5 mg tablet (Eliquis) 5 mg PO BID #180 tabs 04/14/25 06/19/25 06/08/25 Rx dapagliflozin propanediol 10 mg 10 mg PO DAILY #90 tabs 04/14/25 06/19/25 Unknown Rx tablet (Farxiga) dulaglutide 1.5 mg/0.5 mL 1.5 mg (0.5 mL) SUBCUT .weekly #6 04/14/25 06/19/25 06/06/25 Rx [facility] fenofibrate 160 mg tablet 160 mg PO DAILY #90 tabs 04/14/25 06/19/25 06/08/25 Rx Diabetic Shoes 3 x insoles #1 ea 04/18/25 06/19/25 Unknown Rx diabetic shoes with inserts #1 ea 05/17/25 06/19/25 Unknown Rx atorvastatin 40 mg tablet 40 mg PO QPM 06/08/25 06/19/25 06/07/25 History metolazone 2.5 mg tablet 2.5 mg PO .QOD 06/08/25 06/19/25 06/19/25 08:00 History cephalexin 500 mg capsule 500 mg PO BID #14 caps 06/15/25 06/19/25 06/19/25 08:00 Rx furosemide 20 mg tablet (Lasix) 20 mg PO DAILY #5 tabs 06/15/25 06/19/25 Unknown Rx furosemide 40 mg tablet (Lasix) 40 mg PO BID 1 day #2 tabs 06/15/25 06/19/25 Unknown Rx Allergies Allergy/AdvReac Type Severity Reaction Status Date / Time fentanyl Allergy Unknown Verified 06/15/25 09:16 lisinopril AdvReac Mild Coughing Verified 06/15/25 09:16 Current Medications Generic Name Dose Route Start Last Admin Trade Name Freq PRN Reason Stop Dose Admin Acetaminophen 650 mg 06/19/25 14:10 06/21/25 23:44 Acetaminophen 325 Mg Tablet PO 650 mg Q6H PRN Administration Mild/Mod Pain Or Temp >/= 101 Hydrocodone Bitart/Acetaminophen 1 tab 06/22/25 15:03 06/24/25 04:27 Hydrocodone-Acetaminophen 5-325 Mg Tablet PO 1 tab Q4H PRN Administration MODERATE PAIN Allopurinol 50 mg 06/20/25 05:00 06/24/25 04:28 Allopurinol 100 Mg Tablet PO 50 mg EVERY OTHER DAY JOSÉ Administration Aspirin 81 mg 06/20/25 05:00 06/23/25 04:52 Aspirin 81 Mg Ec Tablet PO 81 mg On Hold: 06/23/25 16:03 DAILY JOSÉ Administration Atorvastatin Calcium 40 mg 06/19/25 17:00 06/23/25 18:21 Atorvastatin 40 Mg Tablet PO 40 mg QPM JOSÉ Administration Cefazolin Sodium 2,000 mg 06/22/25 17:00 06/24/25 04:30 Cefazolin 2,000 Mg Sdv IVP 06/28/25 05:01 2,000 mg Q12H JOSÉ Administration Protocol Fenofibrate 145 mg 06/20/25 05:00 06/24/25 04:28 Fenofibrate 145 Mg Tablet PO 145 mg DAILY JOSÉ Administration Fludrocortisone Acetate 0.1 mg 06/22/25 12:40 06/24/25 04:29 Fludrocortisone 0.1 Mg Tablet PO 0.1 mg DAILY JOSÉ Administration Folic Acid 1 mg 06/21/25 05:00 06/24/25 04:28 Folic Acid 1 Mg Tablet PO 1 mg DAILY JOSÉ Administration Furosemide 80 mg 06/23/25 16:15 06/24/25 04:26 Furosemide 10 Mg/Ml Sdv 10ml IVP 80 mg Q12H JOSÉ Administration Levetiracetam 500 mg 06/20/25 05:00 06/24/25 04:29 Levetiracetam 500 Mg Tablet PO 500 mg DAILY JOSÉ Administration Metolazone 5 mg 06/19/25 14:15 06/24/25 04:29 Metolazone 5 Mg Tablet PO 5 mg DAILY JOSÉ Administration Midodrine 5 mg 06/22/25 13:00 06/24/25 11:43 Midodrine 5 Mg Tablet PO 5 mg TID JOSÉ Administration Multivitamins Therapeutic 1 tab 06/21/25 05:00 06/24/25 04:28 Multivitamin Therapeutic Tablet PO 1 tab DAILY JOSÉ Administration Potassium Chloride 20 meq 06/23/25 17:00 06/24/25 04:27 Potassium Chloride Er 20 Meq Tablet PO 20 meq BID JOSÉ Administration Sacubitril/Valsartan 1 each 06/19/25 18:00 06/20/25 16:52 Sacubitril/Valsartan 24-26 Mg Tablet PO 1 each On Hold: 06/21/25 04:45 BID JOSÉ Administration Tamsulosin HCl 0.4 mg 06/19/25 21:00 06/23/25 20:52 Tamsulosin 0.4 Mg Capsule PO 0.4 mg BEDTIME JOSÉ Administration Thiamine Mononitrate 100 mg 06/21/25 05:00 06/24/25 04:29 Thiamine 100 Mg Tablet PO 100 mg DAILY JOSÉ Administration Tizanidine HCl 4 mg 06/21/25 00:27 06/21/25 20:44 Tizanidine 4 Mg Tablet PO 4 mg BEDTIME PRN Administration SPASMS PFSH Acute PFSH: Medical History (Updated 06/24/25 @ 14:34 by Riddhi Pena MD) Pacemaker Venous stasis dermatitis of both lower extremities Atrial fibrillation Rotator cuff arthropathy of right shoulder Osteoarthritis of shoulders, bilateral Bilateral shoulder pain Pulmonary HTN Nonischemic cardiomyopathy Mixed hyperlipidemia Nonrheumatic aortic (valve) stenosis HTN (hypertension) Severe obstructive sleep apnea Nocturnal hypoxemia [place] (obstructive sleep apnea) ARUNA (acute kidney injury) Bilateral foot pain Generalized weakness Acute encephalopathy Generalized muscle weakness Acute alteration in mental status Confusion Epistaxis Anticoagulation adequate with anticoagulant therapy Transaminitis Daytime sleepiness Enrolled in chronic care management Gout attack Acute and chronic respiratory failure with hypoxia Ascending aortic aneurysm Congestive heart failure Pneumonia Acute and chronic respiratory failure with hypoxia Erectile dysfunction Type 2 diabetes mellitus Chronic kidney disease Anemia Diarrhea Diabetic foot Idiopathic gout, right ankle and foot DDD (degenerative disc disease), lumbosacral Surgical History Hx of arthroscopy of left knee Hx of tooth extraction History of cardiac pacemaker Hx of heart surgery (2017) Aortic valve replacement and aneurysm repair Family History Mother CAD (coronary artery disease) Brother Cancer Other Diabetes mellitus, type 2 Hypertension Denies family history of Diabetes Clotting disorder Dementia Chronic kidney disease (CKD) Suicide Anesthesia complication Bleeding disorder Lung disease Stroke Social History (Updated 06/19/25 @ 20:10 by Davon Torres MD) Smoking and tobacco/nicotine status: former use of tobacco/nicotine Second hand smoke exposure: No Alcohol intake: current Alcohol intake frequency: 3 or more drinks per day Alcohol type: beer Alcohol use comment: Stop per his report 90 days ago as of 06/19/2025 Substance/Drug Use: never Additional social history: 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 He is in the midst of a divorce from his Anisha to whom he has been 15 years but for now he is still reporting her as next of kin. He wants full CODE STATUS Reconfirmed full CODE STATUS desired on 06/19/2025. Patient denies drug use or tobacco use he drink 2-3 beers a day but stopped 90 days ago Adopted: No Caregiver/support person: Yes (spouse) Lives independently: Yes Household members: spouse and children Housing: House Marital status: Number of children: 3 Number of grandchildren: 3 Highest education level completed: 6th Grade service: No Current occupational status: disabled Pets and animals: Yes Current gender identity: Male Special pola needs: No Agree to transfusion: Yes Dietary Habits: Current diet type/program: regular Caffeine: Yes Exercise: What type of physical activity do you participate in?: none Physical activity functional status: independent ambulation Safety: Seatbelt use: always Drive intoxicated or ride with intoxicated distribution driver?: never Home Safety: Water heater temperature set < 120 degrees: Yes Working smoke detector in home: Yes Fire extinguisher in home: Yes Carbon monoxide detector in home: No Personal Safety: Do you feel safe at home: Yes Victim of physical abuse: No Victim of emotional abuse: No Victim of sexual abuse: No NHANES Social Connection/Isolation: In a typical week, how many times do you talk on the telephone with family, friends, or neighbors?: Three or More Times per Week How often do you get together with friends or relatives?: Twice per Week Social isolation score (0-1 are the most socially isolated patients): 1 Vitals/I&O/Wt Last Vital Signs Temp 97.5 F L 06/24/25 11:27 Pulse 67 06/24/25 11:27 Resp 16 06/24/25 11:27 BP 93/45 06/24/25 11:27 Pulse Ox 93 06/24/25 11:27 O2 Del Method Room Air 06/24/25 11:27 O2 Flow Rate 2 06/24/25 07:59 FiO2 25 06/22/25 20:28 06/23/25 06/24/25 06/24/25 22:59 06:59 14:59 Intake Total 480 / 1640 1080 / 1080 Output Total 100 / 500 1000 / 1000 Balance 380 / 1140 80 / 80 Weight last 48 hrs Weight 245 lb 6 oz Physical Exam Const: OTHER: GENERAL: Patient is alert, awake and oriented x3. HEART: Regular S1 and S2. No murmur, rub or gallop. LUNGS: Decreased breath sounds bilaterally. CENTRAL NERVOUS SYSTEM: Grossly nonfocal. EXTREMITIES: Swollen both legs which are wrapped 2-3+ edema, weeping skin Data 06/21/25 05:05 06/24/25 04:41 Micro: Microbiology 06/19/25 10:26 Blood Culture - Final Blood NO GROWTH AFTER 5 DAYS 06/19/25 10:23 Blood Culture - Final Blood NO GROWTH AFTER 5 DAYS A&P Assessment and plan 1. Nonischemic cardiomyopathy: 2. Acute on chronic congestive heart failure: 3. S/P ascending aortic aneurysm repair: 4. Pulmonary HTN: 5. Atrial fibrillation: 6. CKD stage 3 due to type 2 diabetes mellitus: 7. Pacemaker: Plan: Patient appeared to be in low cardiac output heart failure with low blood pressure which make it difficult to diurese. Ejection fraction when compared with the prior echocardiogram has not reduced or newly reduced, he has underlying ischemic cardiomyopathy with bioprosthetic aortic valve. Given his chronic kidney disease it is difficult and hard to get rid of fluid along with his noncompliance. For now we will start patient on dobutamine drip will diurese him with IV Lasix 60 mg 3 times daily May need to add metolazone if does not diurese well or may need to switch him to Bumex drip after next 24 hours If still remains volume overloaded will consider removal of fluid through CVVT dialysis PDMP PDMP Reviewed: Not Reviewed Consult Attestations Medical Necessity Statement: Patient require continued hospitalization for above defined care. Patient need to move to [facility] for dobutamine and IV Lasix Coding Level of Care Code Acute Code for [facility] Fwd Diagnoses Nonischemic cardiomyopathy I42.8 Acute on chronic congestive heart failure I50.9 S/P ascending aortic aneurysm repair Z98.890; Z86.79 Pulmonary HTN I27.20 Atrial fibrillation I48.91 CKD stage 3 due to type 2 diabetes mellitus E11.22; N18.30 Pacemaker Z95.0
--- NOTE | 2025-06-24 16:05 | PC.NURSE ---
Report called to Camilla LEE in CSU. Pt transported to room 106 via wheelchair with all belongings.
[2025-06-24] MEDS: DOBUTamine drip 500 MG/250 ML PREMIX 6.68 MG IV (16:25)
--- NOTE | 2025-06-24 20:52 | PC.NURSE ---
This nurse had to pause dobutamine due to loss of IV access. Attempted to place IV. Called ICU and ER for a US guided IV. When obtain IV access once nurse is available.
--- NOTE | 2025-06-24 23:04 | PC.NURSE ---
At this time patient is refusing any IV's. This nurse attempted twice and had two more nurses attempt. Both other nurses were told to not attempt an IV by the patient. Educated patient that he needed an IV for lasix administration and dobutamine. Patient stated I'm not sitting around here if we aren't doing anything . Notified Dr. Shaffer regarding refusals for IV's. Current SBP is in the 90's. Unable to give rest of lasix due to loss of IV access. Monitoring BP until MD is available.
[2025-06-25] VITALS (35 sets, daily range): BP systolic 85–121; BP diastolic 52–77; PULSE 69–79; RESP 15–31; TEMP 36.5–36.7; O2SAT 81–99
[2025-06-25 03:51] LABS: Anion Gap 13.9 (5-19); Blood Urea Nitrogen 60 mg/dL (8-23); Calcium 8.8 mg/dL (8.5-10.5); Carbon Dioxide 30 mmol/L (22-29); Chloride 97 mmol/L (98-107); Glucose 126 mg/dL (65-115); Osmolality Calculated 302 mOsm/kg (285-295); Potassium 3.9 mmol/L (3.5-5.1); Sodium 137 mmol/L (136-145)
--- NOTE | 2025-06-25 04:29 | PC.NURSE ---
Patient set bed alarm off trying to us bathroom. This nurse asked the patient if he needed to pee and attempted to offer the urinal. Patient urinated on floor instead. Patient is sitting on side of bed swaying and felling asleep. Educated patient that for his safety to lay back in bed or if he would like to sit in the recliner. Patient is refusing to answer nurse. Asked patient orientation questions and patient told nurse that he is in [place] and is refusing answer further questions. Dr. Shaffer notified, discussed mentation, lab work, patient consults, vitals, and cellutlitis status. Received orders to give 600 mg zyvox now, CBC, mg, and phos. Also ask if MD wanted an ABG, received orders for an ABG. When this nurse went back in with prn ativan for ciwa and meds patient was refusing all medications. Patient refused ABG and lab draws as well. Per patient I said no pills. I said no pokes. I'm wanting to leave . Attempted numerous times to offer different sitting positions for comfortably and pain medications for his legs. Attempted to educate patient again regarding his health situation. Patient contiues to refuse, Edmund Newberry notified and was told to document refusals. This nurse went to call housekeeping aide to have someone sit with patient since he is unsteady and unsafe. When this nurse returned patient was ripping off gown and telemetry stating I'm leaving. I can leave by call the police station. Do you have a professional health license? Security called and housekeeping aide at bedside. IM ativan given since all other access was not avaliable. Sitter and security at bedside.
[2025-06-25] MEDS: LORazepam 2 mg/mL INJ 1 mL IM ×2 (05:31→07:04)
--- NOTE | 2025-06-25 06:32 | P.MISC_ITS ---
Miscellaneous Note Purpose of Documentation: Confusion and patient in danger to his self Note: This is a 70-year-old male with bilateral purulent wound drainage under the care of podiatry who had seen the patient. Who also has history of alcoholism and on CIWA protocol increasingly getting confused not able to make a decision for himself. Patient got up and getting into peoples room and uncontrollable and also threatening to leave the hospital. Patient had no ability to be safe to himself if he were to walk out. Patient at this point is in danger to himself he cannot leave AGAINST MEDICAL ADVICE because he could not make a decision to do that because of critical medical condition patient is under treatment with abscess of the foot with cellulitis that is being treated with antibiotics and patient it is with alcoholism and on CIWA protocol for optimization of care. The combination of these 2 will not allow patient to have a clear mentation to do well for himself. At this time I am placing patient on 96-hour hold because he is in danger to himself. Patient had not slept all night long and need to be taking care of medically and to be allowed to assist in the medical care. I have spoken to the hospital visor spoken to the security spoken to the patient and also spoken to the administration on-call today and we are all on the same page. I write this note to the effect of this. And also put the patient on a 96-hour hold with a few Raul. Patient has antibiotics of ceftriaxone I had also during dayshift added more antibiotics to broaden the scope of this purulent wound on the bilateral foot for care I have added Zyvox to cover gram- positive. Patient is diabetic
--- NOTE | 2025-06-25 07:15 | PC.NURSE ---
Around [address] Shaffer regarding patient refusal of IM injections for ativan and haldol. Per Dr. Shaffer go hands on and give him the meds . Requested that the MD come assess patient before going hands on with him, MD to come to bedside. Dr. Shaffer explained situation to patient. cytology supervisor and Dr. Shaffer discussed making patient a 96hour hold and the decision was made to go ahead. Daughter notified and she did speak with patient over the phone. Patient was wandering around and getting aggresive with staff. Security was able to get patient back in room to call daughter. IM ativan given and sitter at bedside.
--- NOTE | 2025-06-25 07:32 | PC.NURSE ---
96 Hour Involuntary Hold Patient Rights have been reviewed with the patient and a copy of the same has been provided to him. Athletics Teacher Sofi was present at bedside during the presentation of Rights.
--- NOTE | 2025-06-25 10:42 | P.PN_ITS ---
Subjective 2 Subjective: 70-year-old male with hypotens ion intermittently since admission. He has been up walking around and not dizzy or falling. He states that his blood pressure is low often in the 70s and his primary care provider has talked about trying to treat this but has not thus far. We started him on midodrine and Florinef 06/22/25 and started on dobutamine in CSU last night but patient pulled his IVs twice, refused cobb and refused Haldol IM. Patient has a sitter and is sleeping this morning Apixaban has been held for nosebleed since 06/23/2025 Patient sleeping on his left side IV in the right arm infusing dobutamine at 2 mcg/kg/min. Vitals/I&O/Wt Last Vital Signs Temp 97.8 F 06/25/25 08:00 Pulse 79 06/25/25 08:00 Resp 16 06/25/25 08:00 BP 115/70 06/25/25 08:00 Pulse Ox 96 06/25/25 08:00 O2 Del Method Nasal Cannula 06/25/25 09:08 O2 Flow Rate 2 06/25/25 09:08 FiO2 25 06/22/25 20:28 06/24/25 06/25/25 06/25/25 22:59 06:59 14:59 Intake Total 509.726 / 1589.726 118 / 1707.726 54.887 / 54.887 Output Total 825 / 1825 Balance -315.274 / -235.274 118 / -117.274 54.887 / 54.887 Weight last 48 hrs Weight 111.3 kg Physical Exam 2 Narrative: General well-developed obese male in no acute cardiopulmonary stress CV regular rate and rhythm Lungs uncoordinated exam as the patient is sleeping recently agitated and we do not want to wake him up Calves 2+ swelling with Aldo wrap's. e Data 06/21/25 05:05 06/25/25 02:49 Micro: Microbiology 06/19/25 10:26 Blood Culture - Final Blood NO GROWTH AFTER 5 DAYS 06/19/25 10:23 Blood Culture - Final Blood NO GROWTH AFTER 5 DAYS A&P Assessment and plan 1. Cellulitis: Continue cefazolin. White count is normal no fevers. Continue Aldo wrap 2. Venous stasis dermatitis of both lower extremities: Continue BiPAP, dobutamine and furosemide 60 mgIV every 8 hours Patient has been very difficult overnight with combativeness accidentally pulling his IV which was restarted and then pulling his IV on purpose. I updated Trina Anne his daughter phone #[phone] just now. Patient had history of CPAP which she did not wear which was picked up by the company 3. Leg wound, right: Continue with dressing changes and leg elevation 4. Congestive heart failure: This is severe with widened QRS and history of aortic valve replacement. I spoke with Dr. Salas who will see him. Dr. Pena concurs with dobutamine diuresis but states that once he is euvolemic he would recommend the patient have biventricular pacing. Patient will need to see an EP physician for that. Urine output improved to 1800 cc overnight with patient's compliance poor and intermittent interruption of therapy. Counseled Trina regarding additional attempts overnight and starting antipsychotics but if patient is not cooperative then comfort care or at least no CPR would be appropriate treatment plan 5. Hypotension: Start midodrine and Florinef based on cortisol level 9 in the setting of blood pressure 69/44 heart rate 70. TSH was 1.82 on 06/05/2025 cortisol 9.42 on 06/22/2025 6. Dementia with behavioral disturbance: Haldol 2 mg IV now. Patient received 2 mg lorazepam last night. Will start Zyprexa 5 mg p.o. nightly sublingual PDMP PDMP Reviewed: Not Reviewed Attestations 2 Medical Necessity Statement*: Patient ronni in hospital for BiPAP and dobutamine diuresis but is resistant to treatment Coding Level of Care Code 75271 Diagnoses Cellulitis L03.90 Venous stasis dermatitis of both lower extremities I87.2 Leg wound, right S81.801A Congestive heart failure I50.9 Hypotension I95.9 Dementia with behavioral disturbance F03.918 Time Spent (min) 45
[2025-06-25] MEDS: FUROsemide 10 mg/mL SDV 10mL 60 MG IVP ×2 (14:17→22:08)
--- NOTE | 2025-06-25 14:33 | PC.NURSE ---
applied BIPAP, setting done by RT Pt has been having frequent apnea episodes even with 3 L NC applied and with spo2 down to 72%. Pt was sedated this morning with ativan due to agitation. Pt still sleeping soundly. IPAP-20, EPAP-10, fio2-25%.
[2025-06-25] MEDS: LORazepam 2 mg/mL INJ 1 mL IVP ×2 (15:15→23:18)
[2025-06-25] MEDS: haloperidol inj 5 mg/mL INJ 1 mL 2 MG IVP (15:20)
--- NOTE | 2025-06-25 15:35 | P.PN_ITS ---
Subjective 2 Subjective: Patient had agitation he pulled lines. Patient was sedated this morning using Ativan Had 1800 cc output Vitals/I&O/Wt Last Vital Signs Temp 97.8 F 06/25/25 08:00 Pulse 74 06/25/25 14:00 Resp 31 H 06/25/25 14:00 BP 103/64 06/25/25 14:00 Pulse Ox 97 06/25/25 14:00 O2 Del Method Nasal Cannula 06/25/25 14:00 O2 Flow Rate 3 06/25/25 14:00 FiO2 25 06/22/25 20:28 06/25/25 06/25/25 06/25/25 06:59 14:59 22:59 Intake Total 118 / 1707.726 54.887 / 54.887 Output Total 200 / 200 Balance 118 / -117.274 -145.113 / -145.113 Weight last 48 hrs Weight 245 lb 6 oz Physical Exam 2 Const: OTHER: GENERAL: Patient is alert, awake and oriented x3. HEART: Regular S1 and S2.2/6 systolic murmur LUNGS: Decreased breath sounds bilaterally. CENTRAL NERVOUS SYSTEM: Grossly nonfocal. EXTREMITIES: Swollen both legs which are wrapped 2-3+ edema, weeping skin Data 06/21/25 05:05 06/25/25 02:49 Micro: Microbiology 06/19/25 10:26 Blood Culture - Final Blood NO GROWTH AFTER 5 DAYS 06/19/25 10:23 Blood Culture - Final Blood NO GROWTH AFTER 5 DAYS A&P Assessment and plan 1. Nonischemic cardiomyopathy: 2. Acute on chronic congestive heart failure: 3. S/P ascending aortic aneurysm repair: 4. Pulmonary HTN: 5. Atrial fibrillation: 6. CKD stage 3 due to type 2 diabetes mellitus: 7. Pacemaker: 8. Aortic valve stenosis, severe: Plan: Patient appeared to be in low cardiac output heart failure with low blood pressure which make it difficult to diurese. Ejection fraction when compared with the prior echocardiogram has not reduced or newly reduced, he has underlying ischemic cardiomyopathy with bioprosthetic aortic valve. Given his chronic kidney disease it is difficult and hard to get rid of fluid along with his noncompliance. For now we will start patient on dobutamine drip will diurese him with IV Lasix 60 mg 3 times daily May need to add metolazone if does not diurese well or may need to switch him to Bumex drip after next 24 hours If still remains volume overloaded will consider removal of fluid through CVVT dialysis On today's visit dated June 25, 2025. Patient diuresed reasonably well blood pressure is soft but MAP is good Continue current diuresis Given echocardiogram showing increased gradient across the aortic valve in my opinion patient bioprosthetic aortic valve is stenotic and may need to be replaced, before that he may will be needing a left heart catheterization however given underlying chronic kidney disease and acute on chronic insult left heart catheterization is not indicated at this point in order to prevent contrast-induced nephropathy. Once euvolemic may need referral to CT surgery for consideration. Continue current dobutamine Continue diuresing with Lasix Continue monitoring electrolytes and renal function PDMP PDMP Reviewed: Not Reviewed Attestations 2 Medical Necessity Statement*: Patient require continuation of hospitalization for above defined care. Coding Level of Care Code Acute Code for g Fwd Diagnoses Nonischemic cardiomyopathy I42.8 Acute on chronic congestive heart failure I50.9 Heart failure type: unspecified S/P ascending aortic aneurysm repair Z98.890; Z86.79 Pulmonary HTN I27.20 Atrial fibrillation I48.91 CKD stage 3 due to type 2 diabetes mellitus E11.22; N18.30 Pacemaker Z95.0 Aortic valve stenosis, severe I35.0
[2025-06-25] MEDS: ceFAZolin 2,000 mg SDV 2000 MG IVP (17:45)
[2025-06-25] MEDS: HYDROcodone-acetaminophen 5-325 mg Tablet 1 TAB PO (17:45)
--- NOTE | 2025-06-25 20:16 | PC.NURSE ---
shift report Initial shift report pt has been agitated, combative and restless overnight. not cooperating with staff and has been refusing to take his meds, not keeping his bipap and oxygen on. he pulled out his IV access. Pt has been incontinent with urine and peed on the floor. IV access x2 started on right upper arm, and left hand #20 gauges. This afternoon, inserted cobb catheter for accurate output measurement due to diuresis. Received okay order to insert per hospitalist and newspaper columnist is aware. Pt this afternoon has been started back on BIPAP for a short while then pt started to try to get out of bed but very unsteady on feet, able to sit up on edge of bed but then falls back to sleep. 1:1 sitter started on this pt.
--- NOTE | 2025-06-25 23:24 | PC.NURSE ---
patient 1:1 documentation is on paper placed in patient chart.
[2025-06-26] VITALS: BP 106/63; PULSE 76; PULSE 77; RESP 22; TEMP 36.5; O2SAT 95; O2SAT 97
[2025-06-26 04:00] VITALS: BP 99/65; PULSE 74; RESP 23; TEMP 36.6; O2SAT 97
[2025-06-26] MEDS: ceFAZolin 2,000 mg SDV 2000 MG IVP (04:48)
[2025-06-26] MEDS: HYDROcodone-acetaminophen 5-325 mg Tablet 1 TAB PO ×3 (04:49→14:32)
[2025-06-26] MEDS: DAPAGLIFLOZIN 10 MG TABLET PO (04:49)
[2025-06-26] MEDS: multivitamin therapeutic Tablet 1 TAB PO (04:49)
[2025-06-26] MEDS: FUROsemide 10 mg/mL SDV 10mL 60 MG IVP ×3 (06:27→21:42)
[2025-06-26 07:53] VITALS: BP 99/64; PULSE 71; RESP 34; TEMP 36.6; O2SAT 96
[2025-06-26 08:18] VITALS: PULSE 73; RESP 20; O2SAT 91
[2025-06-26 10:30] LABS: Hematocrit 26.9 % (37-53); Hemoglobin 7.80 g/dL (11.27-16.99); Mean Corpuscular HGB Conc 29.0 g/dL (30-55); Mean Corpuscular Hemoglobin 28.8 pg (27-33); Mean Corpuscular Volume 99.3 fl (82-101); Nucleated Red Blood Cells % 0 %; Platelet Count 99 10^3/cmm (157-399); Red Blood Count 2.71 10^6/uL (3.85-5.65); White Blood Count 6.79 10^3/uL (3.29-11.43)
[2025-06-26 10:48] LABS: Anion Gap 12.3 (5-19); Blood Urea Nitrogen 59 mg/dL (8-23); Calcium 9.2 mg/dL (8.5-10.5); Carbon Dioxide 30 mmol/L (22-29); Chloride 97 mmol/L (98-107); Glucose 161 mg/dL (65-115); Magnesium 2.1 mg/dL (1.7-2.3); Osmolality Calculated 300 mOsm/kg (285-295); Potassium 4.3 mmol/L (3.5-5.1); Sodium 135 mmol/L (136-145)
[2025-06-26] MEDS: DOBUTamine drip 500 MG/250 ML PREMIX 6.68 MG IV (10:59)
--- NOTE | 2025-06-26 11:16 | P.PN_ITS ---
<Statement entered by Riddhi Pena MD - 07/03/25 19:43> Patient was evaluated and cared for in conjunction with an advanced practice practitioner. I personally examined the patient and reviewed the chart and all pertinent data including imaging, telemetry, and laboratory results. I discussed the patient in detail with the advanced practice practitioner. Please see their note for complete H&P testing result and agreed upon plan of care for the patient Subjective 2 Subjective: Showing noncompliance with diet and fluid restrictions. He is diuresing better with dobutamine infusion, 2mcg/kg/min, currently -1870 for the last 24 hours. Vitals/I&O/Wt Last Vital Signs Temp 97.9 F 06/26/25 07:53 Pulse 73 06/26/25 08:18 Resp 20 H 06/26/25 08:18 BP 99/64 06/26/25 07:53 Pulse Ox 91 06/26/25 08:18 O2 Del Method Nasal Cannula 06/26/25 08:18 O2 Flow Rate 3 06/26/25 08:18 FiO2 40 06/26/25 00:00 06/25/25 06/26/25 06/26/25 22:59 06:59 14:59 Intake Total 645.387 / 645.387 Output Total 1350 / 2125 575 / 2125 600 / 600 Balance -1350 / -2070.113 -575 / -2070.113 45.387 / 45.387 Weight last 48 hrs Weight 242 lb 1.081 oz Physical Exam 2 Const: COMMON NORMALS: no acute distress and patient oriented x3 GENERAL APPEARANCE: cooperative and comfortable ORIENTATION/CONSCIOUSNESS: Yes awake, Yes oriented to person, Yes oriented to place and Yes oriented to time Chest: COMMONS NORMALS: normal inspection of the chest and normal palpation of entire chest wall CHEST: Yes Symmetrical chest wall rise Resp: COMMON NORMALS: normal respiratory effort, No retractions, No use of accessory muscles and clear to auscultation bilaterally EFFORT & INSPECTION: Yes symmetric chest movement AUSCULTATION: clear to auscultation bilaterally Cardio: COMMON NORMALS: regular rate, regular rhythm, S2 normal heart sound present, No gallops present (Cardio), No clicks present (Cardio) and No rub (Cardio) RATE: regular rate RHYTHM: regular rhythm HEART SOUNDS: S2 normal heart sound present and Murmur heart sound present systolic Intensity: II/ PERIPHERAL PULSES: radial pulses present Extremity: GENERAL: Yes edema (2+ LE edema) Neuro: COMMON NORMALS: patient oriented x3 and moves all extremities S ENSORIUM/ORIENTATION: Yes oriented to person, Yes oriented to place and Yes oriented to time Urinary Catheter Management: Salazar Latex Free: Cath Placed During This Visit: yes Reason for Continuing Indwelling Catheter: Accurate Measurement of Urinary Output in Critically Ill Patients Urinary Catheter Date of Insertion: 06/25/25 Urinary Catheter Time of Insertion: 14:50 Data 06/26/25 10:13 06/26/25 10:13 A&P Assessment and plan 1. Nonischemic cardiomyopathy: 2. Acute on chronic congestive heart failure: 3. S/P ascending aortic aneurysm repair: 4. Pacemaker: 5. Atrial fibrillation: 6. Type 2 diabetes mellitus: 7. CKD stage 3 due to type 2 diabetes mellitus: Plan: Continue dobutamine for diuresis, reinforced appropriate diet changes due to significant heart failure. Continue Lasix, metolazone. Requires midodrine and fludrocortisone to keep his blood pressure up. Continue aspirin, statin. PDMP PDMP Reviewed: Not Reviewed Attestations 2 Medical Necessity Statement*: Decompensated heart failure Coding Level of Care Code Acute Code for [facility] Diagnoses Nonischemic cardiomyopathy I42.8 Acute on chronic congestive heart failure I50.9 S/P ascending aortic aneurysm repair Z98.890; Z86.79 Pacemaker Z95.0 Atrial fibrillation I48.91 Type 2 diabetes mellitus E11.9 CKD stage 3 due to type 2 diabetes mellitus E11.22; N18.30
--- NOTE | 2025-06-26 11:19 | P.PN_ITS ---
Subjective 2 Subjective: 70-year-old male with hypotens ion intermittently since admission. He has been up walking around and not dizzy or falling. He states that his blood pressure is low often in the 70s and his primary care provider has talked about trying to treat this but has not thus far. We started him on midodrine and Florinef 06/22/25 and started on dobutamine in [facility] 06/24/2025 but patient pulled his IVs twice, refused cobb and refused Haldol and required a sitter to 06/24/2025. We treated him with lorazepam and subsequently Haldol and now Zyprexa. Patient allowed a Cobb and is more cooperative this morning. He required 1 dose lorazepam on 06/25/2025 evening Apixaban has been held for nosebleed since 06/23/2025 Nurses working on his IV. Patient tells me he does not want to and is agreeable to being treated for his heart. I told him that it would be probably 5 days of treatment and maybe include a transfer to another facility Vitals/I&O/Wt Last Vital Signs Temp 97.9 F 06/26/25 07:53 Pulse 73 06/26/25 08:18 Resp 20 H 06/26/25 08:18 BP 99/64 06/26/25 07:53 Pulse Ox 91 06/26/25 08:18 O2 Del Method Nasal Cannula 06/26/25 08:18 O2 Flow Rate 3 06/26/25 08:18 FiO2 40 06/26/25 00:00 06/25/25 06/26/25 06/26/25 22:59 06:59 14:59 Intake Total 645.387 / 645.387 Output Total 1350 / 1550 575 / 2125 600 / 600 Balance -1350 / -1495.113 -575 / -2070.113 45.387 / 45.387 Weight last 48 hrs Weight 109.8 kg Physical Exam 2 Narrative: General well-developed obese male in no acute cardiopulmonary stress CV regular rate and rhythm 4/6 systolic ejection murmur best heard at the right upper sternal border Lungs diminished breath sounds in bases Calves 2+ swelling with Aldo wrap's. Urinary Catheter Management: Cobb Latex Free: Cath Placed During This Visit: yes Reason for Continuing Indwelling Catheter: Accurate Measurement of Urinary Output in Critically Ill Patients Urinary Catheter Date of Insertion: 06/25/25 Urinary Catheter Time of Insertion: 14:50 Data 06/26/25 10:13 06/26/25 10:13 A&P Assessment and plan 1. Cellulitis: Continue ERIN hose discontinue cefazolin. Cellulitis is resolving. Give Keflex 500 mg 3 times daily for 3 more days 2. Venous stasis dermatitis of both lower extremities: Continue BiPAP, dobutamine and furosemide 60 mgIV every 8 hours Patient has been very difficult overnight with combativeness accidentally pulling his IV which was restarted and then pulling his IV on purpose. I updated Trina Anne his daughter phone #[phone] just 06/25/2025. Today 06/26/2025 patient is much more cooperative Patient had history of CPAP which she did not wear which was picked up by the X [facility] 3. Leg wound, right: Continue with dressing changes and leg elevation 4. Congestive heart failure: This is severe with widened QRS and history of aortic valve replacement. I spoke with Dr. Salas who will see him. Dr. Pena concurs with dobutamine diuresis but states that once he is euvolemic he would recommend the patient have biventricular pacing. Patient will need to see an EP physician for that. Urine output improved to 2125 cc overnight with patient's compliance poor and intermittent interruption of therapy. Improved compliance overnight but looks like patient's not taking the Zyprexa 5. Hypotension: Start midodrine and Florinef based on cortisol level 9 in the setting of blood pressure 69/44 heart rate 70. TSH was 1.82 on 06/05/2025 cortisol 9.42 on 06/22/2025 On dobutamine blood pressure 99/64 heart rate 73 6. Dementia with behavioral disturbance: Patient received 2 mg lorazepam last night. Looks like patient is not taking the Zyprexa l PDMP PDMP Reviewed: Not Reviewed Attestations 2 Medical Necessity Statement*: Patient ronni in the hospital for dobutamine and BiPAP diuresis for heart failure and IV antipsychotics for agitation Coding Level of Care Code 08522 Diagnoses Cellulitis L03.90 Venous stasis dermatitis of both lower extremities I87.2 Leg wound, right S81.801A Congestive heart failure I50.9 Hypotension I95.9 Dementia with behavioral disturbance F03.918 Time Spent (min) 40
[2025-06-26 12:00] VITALS: BP 113/67; PULSE 70; RESP 25; O2SAT 94
--- NOTE | 2025-06-26 15:13 | PC.SOCIAL ---
*IMM Update* Patient received Copy of IMM, initialed and dated in chart.
[2025-06-26 16:00] VITALS: BP 103/64; PULSE 73; RESP 32; O2SAT 96
--- NOTE | 2025-06-26 18:38 | W.PM.PSYCONS ---
Providers/Reason for Consult Consulting Physican/Specialty*: Teofilo/Psychiatry Reason for Consult*: agitation/on 96 hour hold Attending Physician: Davon Torres MD Primary Care Provider: BELLA Bahena Psych Consult HPI History of Present Illness Pawan Marcum is a 70 year old male seen here currently on the cardiac stepdown unit with a history of chronic leg swelling and weeping wounds in the lower extremities. The principal technical writer was consulted secondary to the patient having been increasingly agitated and refusing to comply on the unit with orders as he had pulled out various tubes and IVs. He appeared to be having problems with worsening behavior at nighttime. The patient had been more agitated and received Zyprexa 5 mg last night with noted improvement in his agitation. He had apparently been struggling with his memory. There was no urine drug screen completed on admission. He had apparently been having some reports of shakes in his arms and reported on interview having a history of using alcohol in the past. He had denied having any problems with alcohol use currently. The patient had reported that he was struggling with keeping a mask on at home for continuous positive airway pressure for sleep apnea. On interview, he reports that he is doing fine. He reports having some problems with memory and reports that he has been living at home alone and stated that he was managing his chronic medical problems by himself. He reports that he has been feeling tired and reports having some pain issues. He denies any substance use. He reports no prior psychiatric history either inpatient or outpatient. He had minimized any substance abuse history. The patient had received Ativan yesterday which appeared to a been helpful but he reported no recollection of having taken any medications. He denied any anhedonia. He had reported some sleep continuity disruption and reported not feeling rested in the morning. Staff had noted that the patient had been confused at times as he appeared to be thinking that another staff member was actually his granddaughter and he had stated to them that she was trying to force him to get treatment. He had made statements suggesting that his ex- and asked 's boyfriend were in the parking lot although there was no evidence of this situation having occurred. Psychiatric history: none Substance abuse history: reported history of signficant alcohol use Medical history: as stated Medications: as stated Family psychiatric history: unknown Social history: Patient stated that he is retired. He had stated that he is previously . He states that he grew up in [place] and is from his and states that he has 2 kids ages 10 and 14. He reports living alone and indicated that he was retired. Meds Home Medications and Allergies Home Medications ?Medication ?Instructions ?Recorded ?Confirmed ?Last Taken ?Type Blood pressure cuff and machine #1 ea 06/27/22 06/19/25 08/12/22 Rx o2 at 3L per nasal cannula #1 ea 08/11/22 06/19/25 08/12/22 Rx nitroglycerin 0.3 mg sublingual 0.3 mg sublingual Q5M PRN chest 10/08/22 06/19/25 Unknown Rx tablet pain #30 tabs Diabetic shoes with inserts #1 ea 04/24/23 06/19/25 Unknown Rx wheelchair #1 ea 06/02/24 06/19/25 Unknown Rx compressor, for nebulizer #1 ea 06/07/24 06/19/25 Unknown Rx nebulizer accessories #1 ea 06/07/24 06/19/25 Unknown 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 sensor (Dexcom G7 #3 ea 06/20/24 06/19/25 Unknown Rx Sensor device) 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,edger automatic,cont #1 ea 06/20/24 06/19/25 Unknown Rx (Dexcom G7 Building Maintenance Supervisor) tamsulosin 0.4 mg capsule 0.4 mg PO BEDTIME 02/23/25 06/19/25 06/07/25 History levetiracetam 500 mg tablet 500 mg PO QDAY #30 tabs 02/24/25 06/19/25 06/19/25 08:00 Rx sildenafil 50 mg tablet (Viagra) 50 mg PO DAILY PRN sexual activity 02/24/25 06/19/25 03/30/25 Rx #10 tabs aspirin 81 mg tablet,delayed 81 mg PO DAILY #90 tabs 02/28/25 06/19/25 06/08/25 Rx release allopurinol 100 mg tablet 50 mg (1/2 x 100 mg) PO .EVERY 03/24/25 06/19/25 1 Day Ago Rx OTHER DAY #30 tabs ~03/30/25 tizanidine 4 mg tablet 4 mg PO .HS PRN Muscle Spasticity 04/06/25 06/19/25 Unknown Rx #90 tabs diabetic shoes with inserts #1 ea 04/13/25 06/19/25 Unknown Rx apixaban 5 mg tablet (Eliquis) 5 mg PO BID #180 tabs 04/14/25 06/19/25 06/08/25 Rx dapagliflozin propanediol 10 mg 10 mg PO DAILY #90 tabs 04/14/25 06/19/25 Unknown Rx tablet (Farxiga) dulaglutide 1.5 mg/0.5 mL 1.5 mg (0.5 mL) SUBCUT .weekly #6 04/14/25 06/19/25 06/06/25 Rx subcutaneous pen injector mL ([facility]) fenofibrate 160 mg tablet 160 mg PO DAILY #90 tabs 04/14/25 06/19/25 06/08/25 Rx Diabetic Shoes 3 x insoles #1 ea 04/18/25 06/19/25 Unknown Rx diabetic shoes with inserts #1 ea 05/17/25 06/19/25 Unknown Rx atorvastatin 40 mg tablet 40 mg PO QPM 06/08/25 06/19/25 06/07/25 History metolazone 2.5 mg tablet 2.5 mg PO .QOD 06/08/25 06/19/25 06/19/25 08:00 History cephalexin 500 mg capsule 500 mg PO BID #14 caps 06/15/25 06/19/25 06/19/25 08:00 Rx furosemide 20 mg tablet (Lasix) 20 mg PO DAILY #5 tabs 06/15/25 06/19/25 Unknown Rx furosemide 40 mg tablet (Lasix) 40 mg PO BID 1 day #2 tabs 06/15/25 06/19/25 Unknown Rx Allergies Allergy/AdvReac Type Severity Reaction Status Date / Time fentanyl Allergy Unknown Verified 06/15/25 09:16 lisinopril AdvReac Mild Coughing Verified 06/15/25 09:16 Current Medications Current Medications Generic Name Dose Route Start Last Admin Trade Name Freq PRN Reason Stop Dose Admin Acetaminophen 650 mg 06/19/25 14:10 06/21/25 23:44 Acetaminophen 325 Mg Tablet PO 650 mg Q6H PRN Administration Mild/Mod Pain Or Temp >/= 101 Hydrocodone Bitart/Acetaminophen 1 tab 06/22/25 15:03 06/26/25 14:32 Hydrocodone-Acetaminophen 5-325 Mg Tablet PO 1 tab Q4H PRN Administration MODERATE PAIN Allopurinol 50 mg 06/20/25 05:00 06/26/25 04:48 Allopurinol 100 Mg Tablet PO 50 mg EVERY OTHER DAY JOSÉ Administration Aripiprazole 5 mg 06/26/25 12:55 06/26/25 14:32 Aripiprazole 10 Mg Tablet PO 5 mg DAILY JOSÉ Administration Aspirin 81 mg 06/20/25 05:00 06/26/25 04:49 Aspirin 81 Mg Ec Tablet PO 81 mg DAILY JOSÉ Administration Atorvastatin Calcium 40 mg 06/19/25 17:00 06/26/25 18:14 Atorvastatin 40 Mg Tablet PO 40 mg QPM JOSÉ Administration Cephalexin HCl 500 mg 06/26/25 13:00 06/26/25 14:32 Cephalexin 500 Mg Capsule PO 06/29/25 05:01 500 mg TID JOSÉ Administration Protocol Docusate Sodium 200 mg 06/26/25 17:00 06/26/25 18:14 Docusate Sodium 100 Mg Capsule PO 200 mg BID JOSÉ Administration Fenofibrate 145 mg 06/20/25 05:00 06/26/25 04:49 Fenofibrate 145 Mg Tablet PO 145 mg DAILY JOSÉ Administration Fludrocortisone Acetate 0.1 mg 06/22/25 12:40 06/26/25 04:49 Fludrocortisone 0.1 Mg Tablet PO 0.1 mg DAILY JOSÉ Administration Folic Acid 1 mg 06/21/25 05:00 06/26/25 04:50 Folic Acid 1 Mg Tablet PO 1 mg DAILY JOSÉ Administration Furosemide 60 mg 06/24/25 21:00 06/26/25 14:32 Furosemide 10 Mg/Ml Sdv 10ml IVP 60 mg TID JOSÉ Administration Dobutamine HCl/Dextrose 500 mg in 250 mls @ 6.678 mls/hr 06/24/25 14:15 06/26/25 10:59 Dobutamine Drip IV 2 mcg/kg/min .Q24H JOSÉ 6.68 mls/hr 2 MCG/KG/MIN Administration Levetiracetam 500 mg 06/20/25 05:00 06/26/25 04:49 Levetiracetam 500 Mg Tablet PO 500 mg DAILY JOSÉ Administration Metolazone 5 mg 06/19/25 14:15 06/26/25 04:49 Metolazone 5 Mg Tablet PO 5 mg DAILY JOSÉ Administration Midodrine 5 mg 06/22/25 13:00 06/26/25 14:32 Midodrine 5 Mg Tablet PO 5 mg TID JOSÉ Administration Multivitamins Therapeutic 1 tab 06/21/25 05:00 06/26/25 04:49 Multivitamin Therapeutic Tablet PO 1 tab DAILY JOSÉ Administration Potassium Chloride 20 meq 06/26/25 13:00 06/26/25 14:31 Potassium Chloride Er 20 Meq Tablet PO 20 meq TID JOSÉ Administration Tamsulosin HCl 0.4 mg 06/19/25 21:00 06/26/25 01:14 Tamsulosin 0.4 Mg Capsule PO Not Given BEDTIME [facility] Thiamine Mononitrate 100 mg 06/21/25 05:00 06/26/25 04:49 Thiamine 100 Mg Tablet PO 100 mg DAILY JOSÉ Administration Tizanidine HCl 4 mg 06/21/25 00:27 06/21/25 20:44 Tizanidine 4 Mg Tablet PO 4 mg BEDTIME PRN Administration SPASMS PFSH NPU PFSH: Medical History (Updated 06/26/25 @ 19:00 by Fernie Red MD) Dementia with behavioral disturbance Pacemaker Venous stasis dermatitis of both lower extremities Atrial fibrillation Rotator cuff arthropathy of right shoulder Osteoarthritis of shoulders, bilateral Bilateral shoulder pain Pulmonary HTN Nonischemic cardiomyopathy Mixed hyperlipidemia Nonrheumatic aortic (valve) stenosis HTN (hypertension) Severe obstructive sleep apnea Nocturnal hypoxemia [place] (obstructive sleep apnea) ARUNA (acute kidney injury) Bilateral foot pain Generalized weakness Acute encephalopathy Generalized muscle weakness Acute alteration in mental status Confusion Epistaxis Anticoagulation adequate with anticoagulant therapy Transaminitis Daytime sleepiness Enrolled in chronic care management Gout attack Acute and chronic respiratory failure with hypoxia Ascending aortic aneurysm Congestive heart failure Pneumonia Acute and chronic respiratory failure with hypoxia Erectile dysfunction Type 2 diabetes mellitus Chronic kidney disease Anemia Diarrhea Diabetic foot Idiopathic gout, right ankle and foot DDD (degenerative disc disease), lumbosacral Surgical History Hx of arthroscopy of left knee Hx of tooth extraction History of cardiac pacemaker Hx of heart surgery (2017) Aortic valve replacement and aneurysm repair Family History Mother CAD (coronary artery disease) Brother Cancer Other Diabetes mellitus, type 2 Hypertension Denies family history of Diabetes Clotting disorder Dementia Chronic kidney disease (CKD) Suicide Anesthesia complication Bleeding disorder Lung disease Stroke Social History (Updated 06/19/25 @ 20:10 by Davon Torres MD) Smoking and tobacco/nicotine status: former use of tobacco/nicotine Second hand smoke exposure: No Alcohol intake: current Alcohol intake frequency: 3 or more drinks per day Alcohol type: beer Alcohol use comment: Stop per his report 90 days ago as of 06/19/2025 Substance/Drug Use: never Additional social history: 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 He is in the midst of a divorce from his Anisha to whom he has been 15 years but for now he is still reporting her as next of kin. He wants full CODE STATUS Reconfirmed full CODE STATUS desired on 06/19/2025. Patient denies drug use or tobacco use he drink 2-3 beers a day but stopped 90 days ago Adopted: No Caregiver/support person: Yes (spouse) Lives independently: Yes Household members: spouse and children Housing: House Marital status: Number of children: 3 Number of grandchildren: 3 Highest education level completed: 6th Grade service: No Current occupational status: disabled Pets and animals: Yes Current gender identity: Male Special pola needs: No Agree to transfusion: Yes Mental Status Exam MSE Comments: Disheveled male who appeared to be lying in bed and was somewhat cooperative on interview with fair eye contact. There was a fine tremor appreciated initially although it appeared to stop on its own during the interview. His speech was normal in rate and decreased in volume and somewhat difficult to understand at times. His thought process was mostly linear and logical. His thought content revealed no suicidal or homicidal ideation. There was no overt delusions although he had stated that his children were ages 10 and 14 years old. He did not appear to be responding to internal stimuli. His attention span appeared fair. He was alert and oriented to year and month but not date or day of the week. His registration of 3 words was 3 out of 3. His recall of the 3 words after 5 minutes was 1 out of 3. He refused to answer any questions regarding subtraction or any questions regarding spelling a word forward or backwards. His insight appeared impaired. His judgment appeared poor. His impulse control appeared limited. Vitals/I&O/Wt Last Vital Signs Temp 97.9 F 06/26/25 07:53 Pulse 73 06/26/25 16:00 Resp 32 H 06/26/25 16:00 BP 103/64 06/26/25 16:00 Pulse Ox 96 06/26/25 16:00 O2 Del Method Nasal Cannula 06/26/25 08:18 O2 Flow Rate 3 06/26/25 08:18 FiO2 40 06/26/25 00:00 06/26/25 06/26/25 06/26/25 06:59 14:59 22:59 Intake Total 645.387 / 645.387 Output Total 575 / 2125 1600 / 1600 850 / 2450 Balance -575 / -2070.113 -954.613 / -954.613 -850 / -1804.613 Weight last 48 hrs Weight 109.8 kg Physical Exam Urinary Catheter Management: Salazar Latex Free: Cath Placed During This Visit: yes Reason for Continuing Indwelling Catheter: Accurate Measurement of Urinary Output in Critically Ill Patients Urinary Catheter Date of Insertion: 06/25/25 Urinary Catheter Time of Insertion: 14:50 Data NPU 06/26/25 10:13 06/26/25 10:13 A&P Assessment and plan 1. Dementia with agitation: Plan: 70-year-old male with possible dementia and recently placed on Abilify which appears to be helpful at this time. #1. Continue Abilify at 5 mg daily. May continue zyprexa at 5mg at night as well. Monitor for EPS. #2. Recommend Ativan 1 mg prior to his initiation of his biPAP treatment to facilitate keeping the mask on at night. An improvement in his sleep would be very helpful possibly with improving cognition. #3. Will continue to follow. PDMP PDMP Reviewed: Not Reviewed Attestations NPU Medical Necessity Statement*: Continue medical treatment. Coding Level of Care Code Acute Code for [facility] Fwd Diagnoses Dementia with agitation F03.911
[2025-06-27] VITALS (10 sets, daily range): BP systolic 105–129; BP diastolic 53–81; PULSE 68–81; RESP 12–24; TEMP 36.3–36.7; O2SAT 91–99; BMI 35.6
[2025-06-27] MEDS: HYDROcodone-acetaminophen 5-325 mg Tablet 1 TAB PO ×2 (01:03→19:44)
--- NOTE | 2025-06-27 04:22 | PC.NURSE ---
Dobutamine gtt paused due to loss of IV access.
[2025-06-27 04:39] LABS: Anion Gap 13.2 (5-19); Blood Urea Nitrogen 55 mg/dL (8-23); Calcium 9.0 mg/dL (8.5-10.5); Carbon Dioxide 32 mmol/L (22-29); Chloride 96 mmol/L (98-107); Glucose 116 mg/dL (65-115); Osmolality Calculated 300 mOsm/kg (285-295); Potassium 4.2 mmol/L (3.5-5.1); Sodium 137 mmol/L (136-145)
[2025-06-27] MEDS: DAPAGLIFLOZIN 10 MG TABLET PO (05:05)
[2025-06-27] MEDS: multivitamin therapeutic Tablet 1 TAB PO (05:06)
[2025-06-27] MEDS: polyethylene glycol 3350 Pkt 17 gm PO (05:07)
[2025-06-27] MEDS: FUROsemide 10 mg/mL SDV 10mL 60 MG IVP (06:07)
--- NOTE | 2025-06-27 06:50 | PC.NURSE ---
US IV was placed and dobutamine gtt restarted.
--- NOTE | 2025-06-27 08:29 | PC.NURSE ---
pt started to get agitated and uncooperative with staff. He pulled out his IV. very upset that he has been poke multiple times to access IVs. He wants cobb catheter out after nurse spoke to him that crabber and hospitalist wants it in for urine output measurement while on diuretics and help him to get some rest. Nurse informed pt that we will try to speak to doctors if they are okay to remove the cobb today.
[2025-06-27 09:05] LABS: Hematocrit 25.8 % (37-53); Hemoglobin 7.10 g/dL (11.27-16.99); Mean Corpuscular HGB Conc 27.5 g/dL (30-55); Mean Corpuscular Hemoglobin 27.5 pg (27-33); Mean Corpuscular Volume 100.0 fl (82-101); Nucleated Red Blood Cells % 0 %; Platelet Count 93 10^3/cmm (157-399); Red Blood Count 2.58 10^6/uL (3.85-5.65); White Blood Count 5.77 10^3/uL (3.29-11.43)
--- NOTE | 2025-06-27 10:43 | PC.NURSE ---
updated Daughter Anjali about pt's agitation and wanting to go home today. Also informed her that hospitalist would like her to come and discuss about pt's discharge disposition.
--- NOTE | 2025-06-27 13:50 | P.NPUPN_ITS ---
Subjective NPU 2 Subjective: 70-year-old male with CHF currently in t he CSU who continues to be noncompliant with his medication regimen. He had received some Ativan for concerns of withdrawal symptoms from alcohol although he had denied it. He had refused his Zyprexa yesterday night. He had apparently woken up at 4 AM and pulled out his IV lines and was attempting to pull out his Salazar catheter. He continued to struggle with agitation and had reported to this typewriter repairer that he wished to go home. He continued to appear confused at times as he stated that he had to teenage children that lived with his ex-. Mental Status Exam 2 MSE Comments: Disheveled male who appeared to be lying in bed who had fluctuating consciousness. He was difficult to awaken. His speech was normal in rate and decreased in volume and somewhat difficult to understand at times as it appeared slurred. His thought process was circumstantial. His thought content revealed no suicidal or homicidal ideation. There was no overt delusions although he had stated that his children were ages 10 and 14 years old. He did not appear to be responding to internal stimuli. His attention span appeared limited. He was alert and oriented to year and month but not date or day of the week. His registration of 3 words was 3 out of 3. His recall of the 3 words after 5 minutes was 1 out of 3. He refused to answer any questions regarding subtraction or any questions regarding spelling a word forward or backwards. His insight appeared impaired. His judgment appeared poor. His impulse control appeared limited. Vitals/I&O/Wt Last Vital Signs Temp 97.9 F 06/27/25 04:00 Pulse 72 06/27/25 04:00 Resp 18 06/27/25 09:41 BP 121/74 06/27/25 04:00 Pulse Ox 92 06/27/25 09:41 O2 Del Method Nasal Cannula 06/27/25 09:41 O2 Flow Rate 3 06/27/25 09:41 FiO2 40 06/26/25 00:00 06/26/25 06/27/25 06/27/25 22:59 06:59 14:59 Intake Total 600 / 1245.387 366.121 / 1611.508 720 / 720 Output Total 1700 / 3300 1950 / 5250 1800 / 1800 Balance -1100 / -2054.613 -1583.879 / -3638.492 -1080 / -1080 Weight last 48 hrs Weight 109.4 kg Weight 109.8 kg Physical Exam 2 Urinary Catheter Management: Salazar Latex Free: Cath Placed During This Visit: yes Reason for Continuing Indwelling Catheter: Accurate Measurement of Urinary Output in Critically Ill Patients Urinary Catheter Date of Insertion: 06/25/25 Urinary Catheter Time of Insertion: 14:50 Data NPU 06/27/25 04:00 06/27/25 04:00 A&P Assessment and plan 1. Dementia with agitation: Plan: 70-year-old male with possible dementia and recently placed on Abilify which appears to be helpful at this time. #1. Continue Abilify at 5 mg daily. D/C Zyprexa as patient appears worse in regards to compliance at night. Increase abilify to 5mg bid to target agitation. If no improvement recommend switch to risperidone. #2. Recommend Ativan 1 mg prior to his initiation of his biPAP treatment to facilitate keeping the mask on at night. An improvement in his sleep would be very helpful possibly with improving cognition. #3. Will continue to follow. PDMP PDMP Reviewed: Not Reviewed Attestations NPU 2 Medical Necessity Statement*: Continue medical treatment. Coding Level of Care Code Acute Code for [facility] Diagnoses Dementia with agitation F03.911
--- NOTE | 2025-06-27 14:33 | P.PN_ITS ---
Subjective 2 Subjective: 70-year-old male with hypotens ion intermittently since admission. He has been up walking around and not dizzy or falling. He states that his blood pressure is low often in the 70s and his primary care provider has talked about trying to treat this but has not thus far. We started him on midodrine and Florinef 06/22/25 and started on dobutamine in CSU 06/24/2025 but patient pulled his IVs twice, refused cobb and refused Haldol and required a sitter to 06/24/2025. We treated him with lorazepam and subsequently Haldol and now Zyprexa. Patient allowed a Cobb and is more cooperative this morning. He required 1 dose lorazepam on 06/25/2025 evening Apixaban has been held for nosebleed since 06/23/2025 Patient started on dobutamine diuresis 06/24/2025 he also was started on Zyprexa the which she did not take but did take on the . He is also been on aripiprazole 5 mg daily on the and . Patient is companied by his daughter Anjali who is his next of kin and in his grandson by marriage Gilbert and another friend or family member Gavin. Patient states he does not want to and wants to comply with treatment. I pointed out to him that he said this before and then pulled his IVs about 4 hours later. Patient reports willingness to lie in bed with legs elevated wearing his CPAP and allowing IV to remain in place along with the Cobb so that we can have dobutamine diuresis. I teressa out diagram demonstrating congestive heart failure with low ejection ventricular output as well as discoordinated right and left ventricles. I diagrammed that he needs a biventricular pacer after diuresis and that this whole process would take weeks. Patient voices understanding and family voices understanding. Vitals/I&O/Wt Last Vital Signs Temp 97.9 F 06/27/25 04:00 Pulse 72 06/27/25 04:00 Resp 18 06/27/25 09:41 BP 121/74 06/27/25 04:00 Pulse Ox 92 06/27/25 09:41 O2 Del Method Nasal Cannula 06/27/25 09:41 O2 Flow Rate 3 06/27/25 09:41 FiO2 40 06/26/25 00:00 06/26/25 06/27/25 06/27/25 22:59 06:59 14:59 Intake Total 600 / 1245.387 366.121 / 1611.508 720 / 720 Output Total 1700 / 3300 1950 / 5250 1800 / 1800 Balance -1100 / -2054.613 -1583.879 / -3638.492 -1080 / -1080 Weight last 48 hrs Weight 109.4 kg Weight 109.8 kg Physical Exam 2 Narrative: General well-developed obese male in no acute cardiopulmonary stress CV regular rate and rhythm 4/6 systolic ejection murmur best heard at the right upper sternal border Lungs diminished breath sounds in bases with bibasilar crackles Calves 2+ swelling and Aldo wrap's pulled at his ankles Patient is alert and orient to [facility] but does not know the day the week or the date. He is able to tell me that Dr. Pena told him he needs home therapy sounds like dobutamine infusion being prescribed and then follow-up outpatient Urinary Catheter Management: Cobb Latex Free: Cath Placed During This Visit: yes Reason for Continuing Indwelling Catheter: Accurate Measurement of Urinary Output in Critically Ill Patients Urinary Catheter Date of Insertion: 06/25/25 Urinary Catheter Time of Insertion: 14:50 Data 06/27/25 04:00 06/27/25 04:00 A&P Assessment and plan 1. Cellulitis: Continue ERIN hose discontinue cefazolin. Cellulitis is resolving. Give Keflex 500 mg 3 times daily for 2 more days 2. Venous stasis dermatitis of both lower extremities: Continue BiPAP, dobutamine and furosemide 60 mgIV every 8 hours Patient has been very difficult overnight with combativeness accidentally pulling his IV which was restarted and then pulling his IV on purpose. I updated Trina Anne his daughter phone #[phone] just 06/25/2025. Today 06/26/2025 patient is much more cooperative Patient had history of CPAP which she did not wear which was picked up by the company Start ERIN hose discontinue Aldo wrap's start pneumatic cuffs 3. Leg wound, right: Continue with dressing changes and leg elevation 4. Congestive heart failure: This is severe with widened QRS and history of aortic valve replacement. I spoke with Dr. Salas who will see him. Dr. Pena concurs with dobutamine diuresis but states that once he is euvolemic he would recommend the patient have biventricular pacing. Patient will need to see an EP physician for that. Urine output improved to 5250 cc overnight despite patient's compliance poor and intermittent interruption of therapy. Patient pulled his IV again and now we are unable to start a peripheral IV I spoke with the medical receptionist assistant for his facility today and patient is approved for inpatient treatment PICC line will be placed. I spoke with the patient and family and they understand that we cannot continue to replace IVs and certainly will not continue to replace PICC lines if the patient pulls this 1 out. See below for treatment of dementia 5. Hypotension: Start midodrine and Florinef based on cortisol level 9 in the setting of blood pressure 69/44 heart rate 70. TSH was 1.82 on 06/05/2025 cortisol 9.42 on 06/22/2025 Current blood pressure 121/74 pulse 72 O2 sat 92% on 3 L nasal cannula 6. Dementia with behavioral disturbance: Increase aripiprazole to 10 mg daily additional 5 mg given today continue Zyprexa 5 mg nightly PDMP PDMP Reviewed: Not Reviewed Attestations 2 Medical Necessity Statement*: Patient ronni in hospital for dobutamine diuresis Coding Level of Care Code Acute Code for [facility] Fwd Diagnoses Cellulitis L03.90 Venous stasis dermatitis of both lower extremities I87.2 Leg wound, right S81.801A Congestive heart failure I50.9 Hypotension I95.9 Dementia with behavioral disturbance F03.918 Time Spent (min) 50
--- NOTE | 2025-06-27 16:01 | P.PN_ITS ---
Subjective 2 Subjective: He has pulled his IV out. Has diuresed well, now 3L negative. Vitals/I&O/Wt Last Vital Signs Temp 97.9 F 06/27/25 04:00 Pulse 70 06/27/25 12:00 Resp 19 H 06/27/25 12:00 BP 110/67 06/27/25 12:00 Pulse Ox 96 06/27/25 12:00 O2 Del Method Nasal Cannula 06/27/25 09:41 O2 Flow Rate 3 06/27/25 09:41 FiO2 40 06/26/25 00:00 06/27/25 06/27/25 06/27/25 06:59 14:59 22:59 Intake Total 366.121 / 1611.508 720 / 720 Output Total 1950 / 5250 1800 / 1800 Balance -1583.879 / -3638.492 -1080 / -1080 Weight last 48 hrs Weight 241 lb 2.971 oz Weight 242 lb 1.081 oz Physical Exam 2 Const: COMMON NORMALS: no acute distress and alert GENERAL APPEARANCE: c ooperative and comfortable ORIENTATION/CONSCIOUSNESS: Yes awake, Yes oriented to person and Yes oriented to place Chest: COMMONS NORMALS: normal inspection of the chest and normal palpation of entire chest wall CHEST: Yes Symmetrical chest wall rise Resp: COMMON NORMALS: normal respiratory effort, No retractions and No use of accessory muscles EFFORT & INSPECTION: Yes symmetric chest movement A USCULTATION: crackles Laterality: bilateral and posterior Cardio: COMMON NORMALS: regular rate, regular rhythm, S1 normal heart sound present, S2 normal heart sound present, No gallops present (Cardio), No clicks present (Cardio), No murmurs present (Cardio) and No rub (Cardio) RATE: r egular rate RHYTHM: regular rhythm HEART SOUNDS: S1 normal heart sound present and S2 normal heart sound present PERIPHERAL PULSES: radial pulses present Extremity: GENERAL: Yes edema (2+ LE edema) Neuro: COMMON NORMALS: moves all extremities SENSORIUM/ORIENTATION: Yes alert, Yes oriented to person and Yes oriented to place Urinary Catheter Management: Salazar Latex Free: Cath Placed During This Visit: yes Reason for Continuing Indwelling Catheter: Accurate Measurement of Urinary Output in Critically Ill Patients Urinary Catheter Date of Insertion: 06/25/25 Urinary Catheter Time of Insertion: 14:50 Data 06/27/25 04:00 06/27/25 04:00 A&P Assessment and plan 1. Nonischemic cardiomyopathy: 2. Acute on chronic congestive heart failure: 3. S/P ascending aortic aneurysm repair: 4. Pacemaker: 5. Atrial fibrillation: 6. Type 2 diabetes mellitus: 7. CKD stage 3 due to type 2 diabetes mellitus: Plan: Once IV access is reestablished with a PICC line, resume dobutamine and Lasix. Continue aspirin, statin, midodrine, fludrocortisone, metolazone. Volume status improving, creatinine slightly decreased. He may require JONATHAN for further evaluation of the bioprosthetic aortic valve. This can be considered once he is euvolemic. PDMP PDMP Reviewed: Not Reviewed Attestations 2 Medical Necessity Statement*: Continued diuresis with IV medications Coding Level of Care Code Acute Code for [facility] Diagnoses Nonischemic cardiomyopathy I42.8 Acute on chronic congestive heart failure I50.9 S/P ascending aortic aneurysm repair Z98.890; Z86.79 Pacemaker Z95.0 Atrial fibrillation I48.91 Type 2 diabetes mellitus E11.9 CKD stage 3 due to type 2 diabetes mellitus E11.22; N18.30
--- NOTE | 2025-06-27 17:07 | PC.NURSE ---
pt let nurse start back on his bipap. pt is taught to hold the mask for him to have more control over it. pt is help with the adjustable straps around head. pt is keeping the bipap on him twice this afternoon for short periods.
--- NOTE | 2025-06-27 19:39 | PC.NURSE ---
stopped the infusion of dobutamine in OCT at 1830, I received in report that gtt has been off since around 399 on 06/27
[2025-06-27] MEDS: haloperidol inj 5 mg/mL INJ 1 mL IM (21:46)
[2025-06-27] MEDS: LORazepam 2 mg/mL INJ 1 mL IM (23:05)
--- NOTE | 2025-06-27 23:11 | PC.NURSE ---
at 2245 became very agitated and insisting he was in [place] and that his daughter needed
--- NOTE | 2025-06-27 23:16 | PC.NURSE ---
At 2245 patient became very agitated and wanting to leave to go kick his daughters ass for leaving him here on the side of the road in [place]. Attempted to reorientate patient, attempt was unsuccessful, patient then proceeded to threaten to swing on staff, security was called, upon security arriving patient was threatening security. This nurse called the MD, the MD came down and talked to patient and gave verbal order for 2 mg IM ativan. This nurse gave ativan IM and MD/security was still in room, patient now sitting in a chair, about 20 minutes after ativan was given patient started to doze in chair, patient then was helped to bed, three rails were placed up, sitter is at bedside.
[2025-06-28] VITALS (56 sets, daily range): BP systolic 88–106; BP diastolic 54–66; PULSE 59–72; RESP 12–22; TEMP 36.3–36.9; O2SAT 80–100; BMI 35.8
[2025-06-28 04:39] LABS: Anion Gap 12.6 (5-19); Blood Urea Nitrogen 54 mg/dL (8-23); Calcium 8.7 mg/dL (8.5-10.5); Carbon Dioxide 32 mmol/L (22-29); Chloride 99 mmol/L (98-107); Glucose 141 mg/dL (65-115); Osmolality Calculated 305 mOsm/kg (285-295); Potassium 4.6 mmol/L (3.5-5.1); Sodium 139 mmol/L (136-145)
[2025-06-28 04:40] LABS: Magnesium 2.1 mg/dL (1.7-2.3)
[2025-06-28] MEDS: HYDROcodone-acetaminophen 5-325 mg Tablet 1 TAB PO (05:03)
[2025-06-28] MEDS: DAPAGLIFLOZIN 10 MG TABLET PO (05:04)
[2025-06-28] MEDS: multivitamin therapeutic Tablet 1 TAB PO (05:07)
[2025-06-28] MEDS: polyethylene glycol 3350 Pkt 17 gm PO (05:08)
--- NOTE | 2025-06-28 08:30 | P.PN_ITS ---
<Statement entered by Riddhi Pena MD - 06/28/25 21:53> Patient was evaluated and cared for in conjunction with an advanced practice practitioner. I personally examined the patient and reviewed the chart and all pertinent data including imaging, telemetry, and laboratory results. I discussed the patient in detail with the advanced practice practitioner. Please see their note for complete H&P testing result and agreed upon plan of care for the patient. GENERAL: Patient is sleeping with BiPAP on HEART: Regular S1 and S2. No murmur, rub or gallop. LUNGS: Decreased breath sounds bilaterally. CENTRAL NERVOUS SYSTEM: Grossly nonfocal. EXTREMITIES: Lower extremities with out edema bilaterally. Assessment and plan Acute decompensated on chronic systolic heart failure Bioprosthetic aortic valve stenosis Severe LV dysfunction Acute on chronic kidney disease Patient responded initially well to diuretics and dobutamine however he Pulling the Lines, PICC Line Was Suggested by Dr. Torres Patient Again Refused , Daughter Was Contacted but No Answer from the family. This is a noncompliant patient and difficult to treat. Until PICC line is administered may can start patient on p.o. Lasix 60 mg twice a day with 2.5 mg of metolazone twice daily and replenishing potassium according to the level. In the long-term prognosis is poor due to noncompliance JONATHAN can be considered once euvolemic to assess aortic valve stenosis for bioprosthesis in that case may be requiring valve in valve for that we may have to refer him to another facility with structural cardiology. He will be needing left heart cath at some point but given his noncompliace factor and underlying chronic kidney disease it need further discussion with the patient and family I am not sure how much they understand the gravity of the situation Subjective 2 Subjective: Sleeping with BiPAP on. Still does not have IV access. Vitals/I&O/Wt Last Vital Signs Temp 98.4 F 06/28/25 07:58 Pulse 72 06/28/25 07:58 Resp 22 H 06/28/25 07:58 BP 106/64 06/28/25 07:58 Pulse Ox 94 06/28/25 07:58 O2 Del Method Room Air 06/28/25 03:50 O2 Flow Rate 3 06/27/25 09:41 FiO2 25 06/28/25 07:55 06/27/25 06/28/25 06/28/25 22:59 06:59 14:59 Intake Total 253.879 / 1333.879 Output Total 600 / 2800 400 / 2800 Balance -346.121 / -1466.121 -400 / -1466.121 Weight last 48 hrs Weight 242 lb 8.136 oz Weight 241 lb 2.971 oz Physical Exam 2 Const: COMMON NORMALS: no acute distress and patient oriented x3 GENERAL APPEARANCE: cooperative and comfortable ORIENTATION/CONSCIOUSNESS: Yes awake, Yes oriented to person and Yes oriented to place Chest: COMMONS NORMALS: normal inspection of the chest and normal palpation of entire chest wall CHEST: Yes Symmetrical chest wall rise Resp: COMMON NORMALS: normal respiratory effort, No retractions and No use of accessory muscles EFFORT & INSPECTION: Yes symmetric chest movement A USCULTATION: crackles (coarse) Laterality: bilateral and posterior Cardio: COMMON NORMALS: regular rate, regular rhythm, S2 normal heart sound present, No gallops present (Cardio), No clicks present (Cardio) and No rub (Cardio) RATE: regular rate RHYTHM: regular rhythm HEART SOUNDS: S2 normal heart sound present and Murmur heart sound present systolic Location: left sternal border Intensity: II/ PERIPHERAL PULSES: radial pulses present Extremity: GENERAL: Yes edema (1-2+ pitting edema bilat LE below the knee) Neuro: COMMON NORMALS: patient oriented x3 and moves all extremities S ENSORIUM/ORIENTATION: Yes oriented to person and Yes oriented to place Urinary Catheter Management: Salazar Latex Free: Cath Placed During This Visit: yes Reason for Continuing Indwelling Catheter: Accurate Measurement of Urinary Output in Critically Ill Patients Urinary Catheter Date of Insertion: 06/25/25 Urinary Catheter Time of Insertion: 14:50 Data 06/27/25 04:00 06/28/25 03:53 A&P Assessment and plan 1. Status post aortic valve replacement and aortoplasty: 2. S/P ascending aortic aneurysm repair: 3. CHF (congestive heart failure): 4. Pacemaker: 5. Type 2 diabetes mellitus: 6. CKD stage 3 due to type 2 diabetes mellitus: Plan: Still requires more diuresis. Continue aspirin, statin, metolazone, midodrine, fludrocortisone. PDMP PDMP Reviewed: Not Reviewed Attestations 2 Medical Necessity Statement*: needs more diuresis Coding Level of Care Code Acute Code for Chg Fwd Diagnoses Status post aortic valve replacement and aortoplasty Z95.2 S/P ascending aortic aneurysm repair Z98.890; Z86.79 CHF (congestive heart failure) I50.9 Pacemaker Z95.0 Type 2 diabetes mellitus E11.9 CKD stage 3 due to type 2 diabetes mellitus E11.22; N18.30
--- NOTE | 2025-06-28 11:04 | PM.PN ---
Subjective Subjective: Sleeping with BiPAP on. Still does not have IV access. No one was available from PICC line team yesterday patient did continue to diurese. He has mostly been sleeping but also refused compression stockings this morning as well as antiembolic stockings despite having a discussion regarding this very issue yesterday with Jaeger Vitals/I&O/Wt Last Vital Signs Temp 98.4 F 06/28/25 07:58 Pulse 72 06/28/25 07:58 Resp 22 H 06/28/25 07:58 BP 106/64 06/28/25 07:58 Pulse Ox 94 06/28/25 07:58 O2 Del Method BiPAP 06/28/25 07:55 O2 Flow Rate 3 06/27/25 09:41 FiO2 25 06/28/25 07:55 06/27/25 06/28/25 06/28/25 22:59 06:59 14:59 Intake Total 253.879 / 1333.879 Output Total 600 / 2400 400 / 2800 Balance -346.121 / -1066.121 -400 / -1466.121 Weight last 48 hrs Weight 110 kg Weight 109.4 kg Physical Exam Narrative: General well-developed obese male in no acute cardiopulmonary stress CV regular rate and rhythm 4/6 systolic ejection murmur best heard at the right upper sternal border Lungs diminished breath sounds bilaterally despite BiPAP. Left side more diminished than right Calves 2+ swelling and Aldo wrap's pooled at his ankles. Still not wearing compression hose or pneumatic compressions talking Patient is asleep neck correct. I laid him back further in bed to open his airway Urinary Catheter Management: Salazar Latex Free: Cath Placed During This Visit: yes Reason for Continuing Indwelling Catheter: Accurate Measurement of Urinary Output in Critically Ill Patients Urinary Catheter Date of Insertion: 06/25/25 Urinary Catheter Time of Insertion: 14:50 Data 06/27/25 04:00 06/28/25 03:53 A&P Assessment and plan 1. Cellulitis: Cellulitis is resolving. Give Keflex 500 mg 3 times daily for 1more days. Patient continues to refuse had a 2. Venous stasis dermatitis of both lower extremities: Continue BiPAP, dobutamine and furosemide 60 mgIV every 8 hours Patient has been very difficult overnight with combativeness accidentally pulling his IV which was restarted and then pulling his IV on purpose. I updated Trina Anne his daughter phone #[phone] just 06/25/2025. Today 06/26/2025 patient is much more cooperative Patient had history of CPAP which she did not wear which was picked up by the company Continues to refuse ERIN hose and pneumatic cuffs 3. Leg wound, right: Continue with dressing changes and leg elevation 4. Congestive heart failure: This is severe with widened QRS and history of aortic valve replacement. I spoke with Dr. Salas who will see him. Dr. Pena concurs with dobutamine diuresis but states that once he is euvolemic he would recommend the patient have biventricular pacing. Patient will need to see an EP physician for that. Urine output 2800 cc overnight despite patient's compliance poor and intermittent interruption of therapy. Awaiting PICC line which was not able to be placed yesterday so he has not had dobutamine overnight. Small area of circumflex territory ischemia may be a target for stenting but kidneys would be at risk (I spoke with the product manager medical device for his insurance on 06/27/2025 and patient is approved for inpatient treatment PICC line will be placed. I spoke with the patient and family and they understand that we cannot continue to replace IVs and certainly will not continue to replace PICC lines if the patient pulls this 1 out. See below for treatment of dementia) 5. Hypotension: Start midodrine and Florinef based on cortisol level 9 in the setting of blood pressure 69/44 heart rate 70. TSH was 1.82 on 06/05/2025 cortisol 9.42 on 06/22/2025 Current blood pressure 106/64 pulse 72 O2 sat 92% on BiPAP FiO2 25 per 6. Dementia with behavioral disturbance: Continue aripiprazole to 10 mg daily and continue Zyprexa 5 mg nightly PDMP PDMP Reviewed: Not Reviewed Attestations Medical Necessity Statement*: Patient remains hospitalized for dobutamine and BiPAP diuresis. PICC line pending today and I suspect the patient will need greater than 2 midnight. Coding Level of Care Code 04092 Diagnoses Cellulitis L03.90 Venous stasis dermatitis of both lower extremities I87.2 Leg wound, right S81.801A Congestive heart failure I50.9 Hypotension I95.9 Dementia with behavioral disturbance F03.918 Time Spent (min) 35
--- NOTE | 2025-06-28 14:23 | PC.NURSE ---
roxrn came to insert picc line.obtained consent from daughter via phone.pt verb that he will just pull it out .rox contacted dr barraza.picc line not inserted.iv lasix converted to oral.
--- NOTE | 2025-06-28 16:36 | PC.SOCIAL ---
*IMM Updated* copy of IMM was gave to patient, dated and initialed in chart.
[2025-06-29] VITALS (12 sets, daily range): BP systolic 97–119; BP diastolic 67–81; PULSE 69–98; RESP 22–30; TEMP 35.8–36.6; O2SAT 92–99; BMI 35.4
[2025-06-29 04:06] LABS: Anion Gap 13.9 (5-19); Blood Urea Nitrogen 49 mg/dL (8-23); Calcium 9.4 mg/dL (8.5-10.5); Carbon Dioxide 32 mmol/L (22-29); Chloride 97 mmol/L (98-107); Glucose 130 mg/dL (65-115); Osmolality Calculated 303 mOsm/kg (285-295); Potassium 3.9 mmol/L (3.5-5.1); Sodium 139 mmol/L (136-145)
[2025-06-29] MEDS: polyethylene glycol 3350 Pkt 17 gm PO (04:56)
[2025-06-29] MEDS: multivitamin therapeutic Tablet 1 TAB PO (04:57)
[2025-06-29] MEDS: DAPAGLIFLOZIN 10 MG TABLET PO (04:57)
--- NOTE | 2025-06-29 10:31 | XR_ITS ---
WS: [id number] PORTABLE CHEST HISTORY: post picc insertion COMPARISON: 06/24/2025 Right-sided PICC line in good position. Tip terminating near the caval atrial junction. LEFT subclavian cardiac pacer. Prior CABG. Aortic valve replacement. Hazy attenuation throughout both lungs is probably due to fluid overload and edema. No significant effusion. Cardiac size: Moderate enlargement of the heart. Mediastinum/Aorta: Mediastinum is widened. This is probably due to position of the patient. Atherosclerotic changes within the aorta. No osseous abnormality seen. XR/XR chest 1V portable [id number] IMPRESSION: 1. Satisfactory position right-sided PICC line. 2. Prominent and widened mediastinum and cardiomegaly. Probably due to positio n of the patient. Adjacent atelectasis may also be present contributing to the widening. 3. Mild pulmonary edema.
--- NOTE | 2025-06-29 11:31 | PICC.NOTE ---
Double lumen PICC placed to right basilic vein. Referred to vascular access nurse for PICC placement due to poor access. Pt assessed yesterday for PICC placement and due to confusion and stating he would pull line out, PICC not placed. Pt more alert and oriented today. Able to verbalize understanding of procedure and give consent. Risks and benefits discussed and informed consent obtained from patient daughter via phone on 06/28/25. Right arm assessed with right basilic vein measuring 4.0 mm, straight, and apparent best choice for placement. Using sterile technique and MST, right basilic vein accessed x 1 stick. Mid-arm circumference measured 10 cm from right AC 29 cm. Trimmed cath 45 cm with 2 cm external length noted. CXR shows tip in cavoatrial junction, in good position for use per radiologist. Line secured with stat-lock. Insertion site covered with Biopatch and TSM. Report given to bedside nurse, Raheem, RN.
--- NOTE | 2025-06-29 11:35 | P.PN_ITS ---
Documented by User: PACHECO Stevenson 06/29/25 15:38 Subjective 2 Subjective: He had a PICC line placed today, good diuresis with oral Lasix and metolazone. He is -2300 for the last 24 hours, -11 L so far. Creatinine 2.2 which is his baseline. He still has crackles and lower extremity edema. Vitals/I&O/Wt Last Vital Signs Temp 96.5 F L 06/29/25 07:55 Pulse 71 06/29/25 12:39 Resp 27 H 06/29/25 12:39 BP 114/81 06/29/25 12:39 Pulse Ox 99 06/29/25 12:39 O2 Del Method Nasal Cannula 06/29/25 12:39 O2 Flow Rate 3 06/29/25 08:45 FiO2 06/28/25 12:00 06/29/25 06/29/25 06/29/25 06:59 14:59 22:59 Intake Total 480 / 480 Output Total 1000 / 2850 750 / 750 Balance -1000 / -2370 -270 / -270 Weight last 48 hrs Weight 239 lb 10.279 oz Weight 242 lb 8.136 oz Physical Exam 2 Const: COMMON NORMALS: no acute distress GENERAL APPEARANCE: cooperative and comfortable ORIENTATION/CONSCIOUSNESS: Yes awake, Yes oriented to person and Yes oriented to place Chest: COMMONS NORMALS: normal inspection of the chest and normal palpation of entire chest wall CHEST: Yes Symmetrical chest wall rise Resp: COMMON NORMALS: normal respiratory effort, No retractions and No use of accessory muscles EFFORT & INSPECTION: Yes symmetric chest movement A USCULTATION: crackles Laterality: bilateral (Bases) and posterior Cardio: COMMON NORMALS: regular rate, regular rhythm, S2 normal heart sound present, No gallops present (Cardio), No clicks present (Cardio) and No rub (Cardio) RATE: regular rate RHYTHM: regular rhythm HEART SOUNDS: S2 normal heart sound present and Murmur heart sound present systolic PERIPHERAL PULSES: radial pulses present Extremity: GENERAL: Yes edema (2+ pitting edema bilateral lower extremities below the knee) Neuro: COMMON NORMALS: moves all extremities SENSORIUM/ORIENTATION: Yes oriented to person and Yes oriented to place Urinary Catheter Management: Salazar Latex Free: Cath Placed During This Visit: yes Reason for Continuing Indwelling Catheter: Accurate Measurement of Urinary Output in Critically Ill Patients Urinary Catheter Date of Insertion: 06/25/25 Urinary Catheter Time of Insertion: 14:50 Data 06/30/25 03:15 06/30/25 03:15 A&P Assessment and plan 1. Nonrheumatic aortic (valve) stenosis: 2. Hx of heart surgery: 3. Nonischemic cardiomyopathy: 4. Systolic congestive heart failure with reduced left ventricular function, NYHA class 4: 5. Presence of permanent cardiac pacemaker: Plan: He has been diuresing well with oral diuretics, will plan to continue Lasix 80 mg 3 times daily and metolazone 5 mg daily. Blood pressure soft but maintaining MAP above 65 with midodrine and fludrocortisone. Will plan for JONATHAN tomorrow to assess the bioprosthetic aortic valve, if he requires valvuloplasty or valve replacement would refer him to [facility] as an outpatient. He also should undergo coronary angiogram but contrast-induced nephropathy risk is high given creatinine 2.2 today. Will defer for now. Mental status appears to be better today. PDMP PDMP Reviewed: Not Reviewed Attestations 2 Medical Necessity Statement*: Aortic valve workup Coding Level of Care Code Acute Code for [facility]g Fwd Diagnoses Nonrheumatic aortic (valve) stenosis I35.0 Hx of heart surgery Z98.890 Nonischemic cardiomyopathy I42.8 Systolic congestive heart failure with reduced left ventricular function, NYHA class 4 I50.20 Presence of permanent cardiac pacemaker Z95.0 Documented by User: Riddhi Pena MD 06/30/25 10:59 Physical Exam 2 Urinary Catheter Management: Salazar Latex Free: Cath Placed During This Visit: yes Data 06/30/25 03:15 06/30/25 03:15 A&P Assessment and plan 1. Nonrheumatic aortic (valve) stenosis: 2. Hx of heart surgery: 3. Nonischemic cardiomyopathy: 4. Systolic congestive heart failure with reduced left ventricular function, NYHA class 4: 5. Presence of permanent cardiac pacemaker: PDMP PDMP Reviewed: Not Reviewed Coding Level of Care Code Acute Code for Chg Fwd Diagnoses Nonrheumatic aortic (valve) stenosis I35.0 Hx of heart surgery Z98.890 Nonischemic cardiomyopathy I42.8 Systolic congestive heart failure with reduced left ventricular function, NYHA class 4 I50.20 Presence of permanent cardiac pacemaker Z95.0
--- NOTE | 2025-06-29 13:56 | P.PN_ITS ---
Subjective 2 Subjective: Patient is awake on nasal cannula this morning and tells me he is doing okay. I told him that he refused his ERIN hose and PICC line yesterday and he does not recall. He admits that he gets confused at times and is agreeable to taking medications to help him with his orientation and to decrease agitation Vitals/I&O/Wt Last Vital Signs Temp 96.5 F L 06/29/25 07:55 Pulse 71 06/29/25 12:39 Resp 27 H 06/29/25 12:39 BP 114/81 06/29/25 12:39 Pulse Ox 99 06/29/25 12:39 O2 Del Method Nasal Cannula 06/29/25 12:39 O2 Flow Rate 3 06/29/25 08:45 FiO2 25 06/28/25 12:00 06/28/25 06/29/25 06/29/25 22:59 06:59 14:59 Intake Total 240 / 240 Output Total 1000 / 1850 1000 / 2850 Balance -1000 / -1370 -1000 / -2370 240 / 240 Weight last 48 hrs Weight 108.7 kg Weight 110 kg Physical Exam 2 Narrative: General well-developed obese male in no acute cardiopulmonary stress CV regular rate and rhythm 4/6 systolic ejection murmur best heard at the right upper sternal border Lungs good air movement upper lung paula crackles heard in both bases Calves 2+ swelling and Aldo wrap's pooled at his ankles. Still not wearing compression hose or pneumatic compressions talking Urinary Catheter Management: Salazar Latex Free: Cath Placed During This Visit: yes Reason for Continuing Indwelling Catheter: Accurate Measurement of Urinary Output in Critically Ill Patients Urinary Catheter Date of Insertion: 06/25/25 Urinary Catheter Time of Insertion: 14:50 Data 06/27/25 04:00 06/29/25 03:19 A&P Assessment and plan 1. Cellulitis: Resolved 2. Venous stasis dermatitis of both lower extremities: Continue BiPAP, dobutamine and furosemide 80 mg p.o. every 8 hours plus Zaroxolyn 5 mg daily Patient has been very difficult overnight with combativeness accidentally pulling his IV which was restarted and then pulling his IV on purpose. I updated Trina Anne his daughter phone #[phone] just 06/25/2025. Patient was refusing everything yesterday. Today he is cooperative on 06/29/2025 and had his PICC line placed which shows PICC tip in good position and will resume dobutamine. Start ERIN drew Patient had history of CPAP which he did not wear which was picked up by the company 3. Leg wound, right: Continue with dressing changes and leg elevation 4. Congestive heart failure: This is severe with widened QRS and history of aortic valve replacement. I spoke with Dr. Salas who will see him. Dr. Pena concurs with dobutamine diuresis but states that once he is euvolemic he would recommend the patient have biventricular pacing. Patient will need to see an EP physician for that. Urine output 2850 cc overnight despite patient's compliance poor and intermittent interruption of therapy. Awaiting PICC line which was not able to be placed yesterday so he has not had dobutamine overnight. Small area of circumflex territory ischemia may be a target for stenting but kidneys would be at risk (I spoke with the pediatric medical assistant for his insurance on 06/27/2025 and patient is approved for inpatient treatment PICC line will be placed. I spoke with the patient and family and they understand that we cannot continue to replace IVs and certainly will not continue to replace PICC lines if the patient pulls this 1 out. See below for treatment of dementia) PICC line in on 06/29/2025 resume dobutamine 5. Hypotension: Start midodrine and Florinef based on cortisol level 9 in the setting of blood pressure 69/44 heart rate 70. TSH was 1.82 on 06/05/2025 cortisol 9.42 on 06/22/2025 Current blood pressure 114/81 pulse 71 respirations 27 O2 sat 99% on nasal cannula 6. Dementia with behavioral disturbance: Continue aripiprazole to 10 mg daily and continue Zyprexa 5 mg nightly. Patient is improved this morning 06/29/2025. Continue to follow Plan: Continue with sitter to prevent IV discontinuance of the PICC line PDMP PDMP Reviewed: Not Reviewed Attestations 2 Medical Necessity Statement*: Patient ronni in hospital for dobutamine diuresis. Will discuss with Dr. Pena if this should be continued as an outpatient. He will need a sitter to prevent inadvertent discontinuance of the IV until we are certain that he is no longer combative and delirious Coding Level of Care Code Acute Code for Chg Fwd Diagnoses Cellulitis L03.90 Venous stasis dermatitis of both lower extremities I87.2 Leg wound, right S81.801A Congestive heart failure I50.9 Hypotension I95.9 Dementia with behavioral disturbance F03.918 Time Spent (min) 35
--- NOTE | 2025-06-29 14:13 | P.NPUPN_ITS ---
Subjective NPU 2 Subjective: 70-year-old male with CHF currently in t he [facility] who continues to be noncompliant with his medication regimen. Patient had been on a one-to-one. He had continued to reject any vitals to be checked. He had been compliant with the twice a day dosing of Abilify. He had been more awake and alert this afternoon and appeared less confused. He had continued to suggest that he needed to go home. Mental Status Exam 2 MSE Comments: Disheveled male who appeared to be lying in bed and oriented to place today. and was more alert His speech was normal in rate and decreased in volume and somewhat difficult to understand at times as it appeared slurred. His thought process was more linear and logical. His thought content revealed no suicidal or homicidal ideation. There was no evidence of any overt delusions today. He did not appear to be responding to internal stimuli. His attention span appeared limited. His insight appeared impaired. His judgment appeared poor. His impulse control appeared limited. Vitals/I&O/Wt Last Vital Signs Temp 96.5 F L 06/29/25 07:55 Pulse 71 06/29/25 12:39 Resp 27 H 06/29/25 12:39 BP 114/81 06/29/25 12:39 Pulse Ox 99 06/29/25 12:39 O2 Del Method Nasal Cannula 06/29/25 12:39 O2 Flow Rate 3 06/29/25 08:45 FiO2 25 06/28/25 12:00 06/28/25 06/29/25 06/29/25 22:59 06:59 14:59 Intake Total 240 / 240 Output Total 1000 / 1850 1000 / 2850 Balance -1000 / -1370 -1000 / -2370 240 / 240 Weight last 48 hrs Weight 108.7 kg Weight 110 kg Physical Exam 2 Urinary Catheter Management: Salazar Latex Free: Cath Placed During This Visit: yes Reason for Continuing Indwelling Catheter: Accurate Measurement of Urinary Output in Critically Ill Patients Urinary Catheter Date of Insertion: 06/25/25 Urinary Catheter Time of Insertion: 14:50 Data NPU 06/27/25 04:00 06/29/25 03:19 A&P Assessment and plan 1. Dementia with agitation: Plan: 70-year-old male with possible dementia and recently placed on Abilify which appears to be helpful at this time. #1. Continue Abilify at 5 mg bid. #2. Recommend Ativan 1 mg prior to his initiation of his biPAP treatment to facilitate keeping the mask on at night. An improvement in his sleep would be very helpful possibly with improving cognition. #3. Will continue to follow. PDMP PDMP Reviewed: Not Reviewed Attestations NPU 2 Medical Necessity Statement*: Continue medical treatment. Coding Level of Care Code Acute Code for [facility] Diagnoses Dementia with agitation F03.911
[2025-06-30] VITALS (19 sets, daily range): BP systolic 90–125; BP diastolic 57–84; PULSE 65–98; RESP 12–28; TEMP 36.1–36.9; O2SAT 94–100
[2025-06-30] MEDS: haloperidol inj 5 mg/mL INJ 1 mL 1 MG IVP (01:57)
[2025-06-30 04:09] LABS: Hematocrit 24.7 % (37-53); Hemoglobin 7.00 g/dL (11.27-16.99); Mean Corpuscular HGB Conc 28.3 g/dL (30-55); Mean Corpuscular Hemoglobin 27.9 pg (27-33); Mean Corpuscular Volume 98.4 fl (82-101); Nucleated Red Blood Cells % 0.4 %; Platelet Count 121 10^3/cmm (157-399); Red Blood Count 2.51 10^6/uL (3.85-5.65); White Blood Count 7.82 10^3/uL (3.29-11.43)
[2025-06-30 04:29] LABS: Blood Urea Nitrogen 57 mg/dL (8-23); Calcium 9.1 mg/dL (8.5-10.5); Carbon Dioxide 31 mmol/L (22-29); Chloride 91 mmol/L (98-107); Glucose 131 mg/dL (65-115); Osmolality Calculated 298 mOsm/kg (285-295); Sodium 135 mmol/L (136-145)
[2025-06-30 04:31] LABS: Anion Gap 18.1 (5-19); Potassium 5.1 mmol/L (3.5-5.1)
[2025-06-30] MEDS: multivitamin therapeutic Tablet 1 TAB PO (05:30)
[2025-06-30] MEDS: DAPAGLIFLOZIN 10 MG TABLET PO (05:31)
--- NOTE | 2025-06-30 09:45 | P.PN_ITS ---
<Statement entered by Riddhi Pena MD - 06/30/25 20:50> Patient was evaluated and cared for in conjunction with an advanced practice practitioner. I personally examined the patient and reviewed the chart and all pertinent data including imaging, telemetry, and laboratory results. I discussed the patient in detail with the advanced practice practitioner. Please see their note for complete H&P testing result and agreed upon plan of care for the patient. Patient appeared to be short of breath underwent transesophageal echocardiogram which showed left ventricular ejection fraction was moderate to severely depressed 35 to 40% Patient had bioprosthetic moderately stenotic aortic valve GENERAL: Patient is alert, awake and oriented x3. Sitting at the side of the bed he is short of breath and would like to go home HEART: Regular S1 and S2. No murmur, rub or gallop. LUNGS: Inspiratory crackles bilaterally. CENTRAL NERVOUS SYSTEM: Grossly nonfocal. EXTREMITIES: Lower extremities with out edema bilaterally. 1. Presence of permanent cardiac pacemaker: 2. Bioprosthetic aortic valve status post AVR 2014 3. Hx of heart surgery: 4. Nonischemic cardiomyopathy: 5. Systolic congestive heart failure with reduced left ventricular function, NYHA class 4: 6. S/P ascending aortic aneurysm repair: 8. Type 2 diabetes mellitus: 9. CKD stage 3 due to type 2 diabetes mellitus: 10. Anemia Patient has moderate bioprosthetic aortic valve stenosis, he has moderate to severely depressed left ventricle function when compared to the prior echo no significant change, he is in decompensated systolic heart failure which is multifactorial including noncompliance Since we have PICC line in place now we will continue to diurese him with dobutamine continue IV Lasix 60 mg 3 times daily with low-dose dobutamine as blood pressure of the patient was low and inability to diurese. Plan 1 to 1.5 L negative hopefully in 2 to 3 days patient will be euvolemic once euvolemic will add Entresto. Subjective 2 Subjective: JONATHAN planned for today to assess aortic valve, to determine if he requires any valvuloplasty or valvular replacement. PICC line is still intact. Creatinine 2.7 today, up from 2.2 yesterday. He is -722 mL for the last 24 hours, -12 L for cumulative. Hemoglobin hovering around 7-8. He seems more lucid today. Vitals/I&O/Wt Last Vital Signs Temp 97.6 F 06/30/25 12:00 Pulse 70 06/30/25 12:10 Resp 23 H 06/30/25 12:00 BP 107/74 06/30/25 12:00 Pulse Ox 96 06/30/25 12:10 O2 Del Method BiPAP 06/30/25 12:00 O2 Flow Rate 3 06/30/25 11:28 FiO2 36 06/30/25 12:10 06/29/25 06/30/25 06/30/25 22:59 06:59 14:59 Intake Total 800 / 1630 350 / 1630 Output Total 1600 / 2352 2 800 / 800 Balance -800 / -722 348 / -722 -800 / -800 Weight last 48 hrs Weight 241 lb 4.8 oz Weight 239 lb 10.279 oz Physical Exam 2 Const: COMMON NORMALS: no acute distress and patient oriented x3 GENERAL APPEARANCE: cooperative and comfortable ORIENTATION/CONSCIOUSNESS: Yes awake, Yes oriented to person, Yes oriented to place and Yes oriented to time Chest: COMMONS NORMALS: normal inspection of the chest and normal palpation of entire chest wall CHEST: Yes Symmetrical chest wall rise Resp: COMMON NORMALS: normal respiratory effort, No retractions and No use of accessory muscles EFFORT & INSPECTION: Yes symmetric chest movement A USCULTATION: crackles (bases) Laterality: bilateral and posterior Cardio: COMMON NORMALS: regular rate, regular rhythm, S1 normal heart sound present, S2 normal heart sound present, No gallops present (Cardio), No clicks present (Cardio), No murmurs present (Cardio) and No rub (Cardio) RATE: r egular rate RHYTHM: regular rhythm HEART SOUNDS: S1 normal heart sound present and S2 normal heart sound present PERIPHERAL PULSES: radial pulses present Extremity: GENERAL: Yes edema (1-2+ pitting edema bilat LE below knee) Neuro: COMMON NORMALS: patient oriented x3 and moves all extremities S ENSORIUM/ORIENTATION: Yes oriented to person, Yes oriented to place and Yes oriented to time Urinary Catheter Management: Salazar Latex Free: Cath Placed During This Visit: yes Reason for Continuing Indwelling Catheter: Accurate Measurement of Urinary Output in Critically Ill Patients Urinary Catheter Date of Insertion: 06/25/25 Urinary Catheter Time of Insertion: 14:50 Data 06/30/25 03:15 06/30/25 03:15 A&P Assessment and plan 1. Presence of permanent cardiac pacemaker: 2. Nonrheumatic aortic (valve) stenosis: 3. Hx of heart surgery: 4. Nonischemic cardiomyopathy: 5. Systolic congestive heart failure with reduced left ventricular function, NYHA class 4: 6. S/P ascending aortic aneurysm repair: 7. Status post aortic valve replacement and aortoplasty: 8. Type 2 diabetes mellitus: 9. CKD stage 3 due to type 2 diabetes mellitus: 10. Anemia: Plan: Plan for JONATHAN today, keep NPO. If bioprosthetic aortic valve is severely restenosed, will plan on outpatient referral to [facility] for further management of the valve. PDMP PDMP Reviewed: Not Reviewed Attestations 2 Medical Necessity Statement*: heart failure, aortic stenosis, JONATHAN Coding Level of Care Code Acute Code for g Fwd Diagnoses Presence of permanent cardiac pacemaker Z95.0 Nonrheumatic aortic (valve) stenosis I35.0 Hx of heart surgery Z98.890 Nonischemic cardiomyopathy I42.8 Systolic congestive heart failure with reduced left ventricular function, NYHA class 4 I50.20 S/P ascending aortic aneurysm repair Z98.890; Z86.79 Status post aortic valve replacement and aortoplasty Z95.2 Type 2 diabetes mellitus E11.9 CKD stage 3 due to type 2 diabetes mellitus E11.22; N18.30 Anemia D64.9
--- NOTE | 2025-06-30 10:52 | ANES.PREANE2 ---
Pre-Anesthetic Assessment Height/Weight: Height 1.75 m Weight 109.452 kg Temp Pulse Resp BP Pulse Ox O2 Del Method O2 Flow Rate 97.0 F L 71 18 94/60 100 Nasal Cannula 3 06/30/25 10:50 06/30/25 10:50 06/30/25 10:50 06/30/25 10:50 06/30/25 10:50 06/30/25 10:50 06/30/25 10:50 FiO2 25 06/30/25 09:22 Operation Date: 06/30/25 11:00 Proposed Procedures p JONATHAN(Not Applicable) - Riddhi Pena MD Familial anesthetic complications: none Was Beta Ori taken within 24 hours: N/A Was Clonidine taken within 24 hours: N/A Last intake: > 8 hrs Social No alcohol and No tobacco Exam alert, oriented x 3, clear to auscultation bilaterally and regular rate & rhythm Airway Mallampati: Class III Dentition: full Pulmonary Sleep Apnea CV/HEM Congestive Heart Failure [place] Metabolic Diabetes Mellitus Neuropsych Cerebrovascular Accident and Seizure Anesthetic Plan ASA status: 4 Anesthesia: MAC Risk of > 500 ml blood loss (7ml/kg in children): No Medications/Allergies Home Medications ?Medication ?Instructions ?Recorded ?Confirmed ?Last Taken ?Type Blood pressure cuff and machine #1 ea 06/27/22 06/19/25 08/12/22 Rx o2 at 3L per nasal cannula #1 ea 08/11/22 06/19/25 08/12/22 Rx nitroglycerin 0.3 mg sublingual 0.3 mg sublingual Q5M PRN chest 10/08/22 06/19/25 Unknown Rx tablet pain #30 tabs Diabetic shoes with inserts #1 ea 04/24/23 06/19/25 Unknown Rx wheelchair #1 ea 06/02/24 06/19/25 Unknown Rx compressor, for nebulizer #1 ea 06/07/24 06/19/25 Unknown Rx nebulizer accessories #1 ea 06/07/24 06/19/25 Unknown 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 sensor (Dexcom G7 #3 ea 06/20/24 06/19/25 Unknown Rx Sensor device) 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,knitting machine tender,cont #1 ea 06/20/24 06/19/25 Unknown Rx (Dexcom G7 Corrugated Box Machine Operator) tamsulosin 0.4 mg capsule 0.4 mg PO BEDTIME 02/23/25 06/19/25 06/07/25 History levetiracetam 500 mg tablet 500 mg PO QDAY #30 tabs 02/24/25 06/19/25 06/19/25 08:00 Rx sildenafil 50 mg tablet (Viagra) 50 mg PO DAILY PRN sexual activity 02/24/25 06/19/25 03/30/25 Rx #10 tabs aspirin 81 mg tablet,delayed 81 mg PO DAILY #90 tabs 02/28/25 06/19/25 06/08/25 Rx release allopurinol 100 mg tablet 50 mg (1/2 x 100 mg) PO .EVERY 03/24/25 06/19/25 1 Day Ago Rx OTHER DAY #30 tabs ~03/30/25 tizanidine 4 mg tablet 4 mg PO .HS PRN Muscle Spasticity 04/06/25 06/19/25 Unknown Rx #90 tabs diabetic shoes with inserts #1 ea 04/13/25 06/19/25 Unknown Rx apixaban 5 mg tablet (Eliquis) 5 mg PO BID #180 tabs 04/14/25 06/19/25 06/08/25 Rx dapagliflozin propanediol 10 mg 10 mg PO DAILY #90 tabs 04/14/25 06/19/25 Unknown Rx tablet (Farxiga) dulaglutide 1.5 mg/0.5 mL 1.5 mg (0.5 mL) SUBCUT .weekly #6 04/14/25 06/19/25 06/06/25 Rx subcutaneous [facility] fenofibrate 160 mg tablet 160 mg PO DAILY #90 tabs 04/14/25 06/19/25 06/08/25 Rx Diabetic Shoes 3 x insoles #1 ea 04/18/25 06/19/25 Unknown Rx diabetic shoes with inserts #1 ea 05/17/25 06/19/25 Unknown Rx atorvastatin 40 mg tablet 40 mg PO QPM 06/08/25 06/19/25 06/07/25 History metolazone 2.5 mg tablet 2.5 mg PO .QOD 06/08/25 06/19/25 06/19/25 08:00 History cephalexin 500 mg capsule 500 mg PO BID #14 caps 06/15/25 06/19/25 06/19/25 08:00 Rx furosemide 20 mg tablet (Lasix) 20 mg PO DAILY #5 tabs 06/15/25 06/19/25 Unknown Rx furosemide 40 mg tablet (Lasix) 40 mg PO BID 1 day #2 tabs 06/15/25 06/19/25 Unknown Rx Allergies Allergy/AdvReac Type Severity Reaction Status Date / Time fentanyl Allergy Unknown Verified 06/15/25 09:16 lisinopril AdvReac Mild Coughing Verified 06/15/25 09:16 Current Medications Generic Name Dose Route Start Last Admin Trade Name Freq PRN Reason Stop Dose Admin Acetaminophen 650 mg 06/19/25 14:10 06/30/25 09:24 Acetaminophen 325 Mg Tablet PO 650 mg Q6H PRN Administration Mild/Mod Pain Or Temp >/= 101 Albuterol/Ipratropium 3 ml 06/19/25 14:38 06/30/25 01:17 Ipratropium-Albuterol 3 Ml Neb INHALATION 3 ml Q6H PRN Administration SHORTNESS OF BREATH Allopurinol 50 mg 06/20/25 05:00 06/30/25 05:30 Allopurinol 100 Mg Tablet PO 50 mg EVERY OTHER DAY JOSÉ Administration Aripiprazole 5 mg 06/27/25 17:00 06/30/25 05:31 Aripiprazole 10 Mg Tablet PO 5 mg BID JOSÉ Administration Aspirin 81 mg 06/20/25 05:00 06/27/25 05:06 Aspirin 81 Mg Ec Tablet PO 81 mg On Hold: 06/27/25 08:53 DAILY JOSÉ Administration Atorvastatin Calcium 40 mg 06/19/25 17:00 06/29/25 17:33 Atorvastatin 40 Mg Tablet PO 40 mg QPM JOSÉ Administration Docusate Sodium 200 mg 06/26/25 17:00 06/30/25 05:30 Docusate Sodium 100 Mg Capsule PO 200 mg BID JOSÉ Administration Fenofibrate 145 mg 06/20/25 05:00 06/30/25 05:31 Fenofibrate 145 Mg Tablet PO 145 mg DAILY JOSÉ Administration Fludrocortisone Acetate 0.1 mg 06/22/25 12:40 06/30/25 05:31 Fludrocortisone 0.1 Mg Tablet PO 0.1 mg DAILY JOSÉ Administration Folic Acid 1 mg 06/21/25 05:00 06/30/25 05:30 Folic Acid 1 Mg Tablet PO 1 mg DAILY JOSÉ Administration Furosemide 80 mg 06/28/25 13:50 06/30/25 05:31 Furosemide 40 Mg Tablet PO 80 mg Q8H JOSÉ Administration Haloperidol Lactate 1 mg 06/26/25 11:30 06/30/25 01:57 Haloperidol Inj 5 Mg/Ml Inj 1 Ml IVP 1 mg Q4H PRN Administration AGITATION Dobutamine HCl/Dextrose 500 mg in 250 mls @ 6.678 mls/hr 06/24/25 14:15 06/29/25 14:12 Dobutamine Drip IV Not Given On Hold: 06/29/25 11:00 .Q24H JOSÉ 2 MCG/KG/MIN Levetiracetam 500 mg 06/20/25 05:00 06/30/25 05:31 Levetiracetam 500 Mg Tablet PO 500 mg DAILY JOSÉ Administration Metolazone 5 mg 06/19/25 14:15 06/30/25 05:31 Metolazone 5 Mg Tablet PO 5 mg DAILY JOSÉ Administration Midodrine 5 mg 06/22/25 13:00 06/30/25 05:31 Midodrine 5 Mg Tablet PO 5 mg TID JOSÉ Administration Multivitamins Therapeutic 1 tab 06/21/25 05:00 06/30/25 05:30 Multivitamin Therapeutic Tablet PO 1 tab DAILY JOSÉ Administration Olanzapine 5 mg 06/29/25 21:00 06/29/25 21:33 Olanzapine 5 Mg Tablet PO 5 mg BEDTIME JOSÉ Administration Phenazopyridine HCl 100 mg 06/26/25 21:20 06/27/25 23:20 Phenazopyridine 100 Mg Tablet PO 100 mg TID PRN Administration DYSURIA Polyethylene Glycol 17 gm 06/27/25 05:00 06/30/25 05:31 Polyethylene Glycol 3350 Pkt 17 Gm PO Not Given DAILY JOSÉ Potassium Chloride 20 meq 06/26/25 13:00 06/30/25 05:31 Potassium Chloride Er 20 Meq Tablet PO 20 meq TID JOSÉ Administration Tamsulosin HCl 0.4 mg 06/19/25 21:00 06/29/25 21:32 Tamsulosin 0.4 Mg Capsule PO 0.4 mg BEDTIME JOSÉ Administration Thiamine Mononitrate 100 mg 06/21/25 05:00 06/30/25 05:31 Thiamine 100 Mg Tablet PO 100 mg DAILY JOSÉ Administration Tizanidine HCl 4 mg 06/21/25 00:27 06/21/25 20:44 Tizanidine 4 Mg Tablet PO 4 mg BEDTIME PRN Administration SPASMS PFSH Anesthesia Medical History (Updated 06/29/25 @ 15:32 by PACHECO Stevenson) Dementia with behavioral disturbance Pacemaker Venous stasis dermatitis of both lower extremities Atrial fibrillation Rotator cuff arthropathy of right shoulder Osteoarthritis of shoulders, bilateral Bilateral shoulder pain Pulmonary HTN Nonischemic cardiomyopathy Mixed hyperlipidemia Nonrheumatic aortic (valve) stenosis HTN (hypertension) Severe obstructive sleep apnea Nocturnal hypoxemia [place] (obstructive sleep apnea) ARUNA (acute kidney injury) Bilateral foot pain Generalized weakness Acute encephalopathy Generalized muscle weakness Acute alteration in mental status Confusion Epistaxis Anticoagulation adequate with anticoagulant therapy Transaminitis Daytime sleepiness Enrolled in chronic care management Gout attack Acute and chronic respiratory failure with hypoxia Ascending aortic aneurysm Congestive heart failure Pneumonia Acute and chronic respiratory failure with hypoxia Erectile dysfunction Type 2 diabetes mellitus Chronic kidney disease Anemia Diarrhea Diabetic foot Idiopathic gout, right ankle and foot DDD (degenerative disc disease), lumbosacral Surgical History Hx of arthroscopy of left knee Hx of tooth extraction History of cardiac pacemaker Hx of heart surgery (2017) Aortic valve replacement and aneurysm repair Family History Mother CAD (coronary artery disease) Brother Cancer Other Diabetes mellitus, type 2 Hypertension Denies family history of Diabetes Clotting disorder Dementia Chronic kidney disease (CKD) Suicide Anesthesia complication Bleeding disorder Lung disease Stroke Social History (Updated 06/19/25 @ 20:10 by Davon Torres MD) Smoking and tobacco/nicotine status: former use of tobacco/nicotine Second hand smoke exposure: No Alcohol intake: current Alcohol intake frequency: 3 or more drinks per day Alcohol type: beer Substance/Drug Use: never Additional social history: 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 He is in the midst of a divorce from his Anisha to whom he has been 15 years but for now he is still reporting her as next of kin. He wants full CODE STATUS Reconfirmed full CODE STATUS desired on 06/19/2025. Patient denies drug use or tobacco use he drink 2-3 beers a day but stopped 90 days ago Adopted: No Caregiver/support person: Yes (spouse) Lives independently: Yes Household members: spouse and children Housing: House Marital status: Number of children: 3 Number of grandchildren: 3 Highest education level completed: 6th Grade service: No Current occupational status: disabled Pets and animals: Yes Current gender identity: Male Special pola needs: No Agree to transfusion: Yes Data Anesthesia 06/30/25 03:15 06/30/25 03:15 Short CBC 06/30/25 Range/Units 03:15 WBC 7.82 (3.29-11.43) 10^3/uL Hgb 7.00 L (11.27-16.99) g/dL Hct 24.7 L (37-53) % MCV 98.4 (82-101) fl Plt Count 121 L (157-399) 10^3/cmm Neut % (Auto) 79.8 % Neut # (Auto) 6.25 (1.8-7.7) 10^3/uL BMP 06/29/25 06/30/25 03:19 03:15 Sodium 139 135 L Potassium 3.9 5.1 Chloride 97 L 91 L Carbon Dioxide 32 H 31 H BUN 49 H 57 H Creatinine 2.2 H 2.7 H Glucose 130 H 131 H Calcium 9.4 9.1 Cardiac Studies: Echocardiogram 06/24/25 Echocardiogram Ultrasound 12/09/19 Transesophageal Echocardiogram 03/31/25 Sestamibi Stress Test (Cardiology) 09/22/22
--- NOTE | 2025-06-30 10:59 | W.PM.OPSUD ---
Surgery/Procedure H&P Update DATE OF PROCEDURE: June 30, 2025 DATE H&P PERFORMED: 06/24/25 PREOP DIAGNOSIS: Restenosis of the bioprosthetic aortic PRIMARY INDICATION FOR PROCEDURE: Restenosis of bioprosthetic aortic valve Worsening of heart failure Assessment of the bioprosthetic aortic valve PLANNED PROCEDURE: Operation Date: 06/30/25 11:00 Proposed Procedures p JONATHAN(Not Applicable) - Riddhi Pena MD See anesthesia PHYSICAL EXAM: alert, oriented x 3, clear to auscultation bilaterally and regular rate & rhythm OTHER PERTINENT EXAM FINDINGS: All risk-benefit and alternative for the procedure has been explained to the patient patient understand less than 1% risk of mortality, patient understand 2% risk of abrasion laceration and bleeding of esophagus, patient understand anesthesia risk. Patient agrees to it has has signed consent form as well, please review the paperwork and the chart. Patient has agreed to it and would like to proceed with it for ADDITIONAL INFORMATION: See anesthesia note for assessment of airway
--- NOTE | 2025-06-30 11:09 | PC.NURSE ---
off unit to gi lab for JONATHAN
--- NOTE | 2025-06-30 11:30 | ANE.PACU2 ---
Inpatient post-anesthesia follow up: Airway intact: Yes Vital signs: Temperature 97.6 F Pulse Rate [Orthos tatic 70 Standing] Pulse Rate [Orthos tatic 68 Sitting] Pulse Rate [Orthos tatic Lying] 69 Pulse Rate 70 Respiratory Rate 23 Blood Pressure [Or thostatic 106/64 Standing] Blood Pressure [Or thostatic 104/66 Sitting] Blood Pressure [Or thostatic 100/55 Lying] Blood Pressure 107/74 Pulse Oximetry 96 Oxygen Delivery Me thod BiPAP Oxygen Flow Rate 3 Fraction of Inspir ed Oxygen 36 Hydration adequate: Yes Nausea and vomiting: No Pain level: 1 Mental status: Baseline
[2025-06-30] MEDS: guaiFENesin-dextromethorphan UDC 10 mL 5 ML PO ×2 (14:04→20:18)
--- NOTE | 2025-06-30 14:10 | PM.PN ---
Subjective Subjective: Patient is arousable on BiPAP this morning and tells me he is doing okay. PICC line placed yesterday and right upper arm still intact. Creatinine dillon as did his potassium with contraction alkalosis noted Vitals/I&O/Wt Last Vital Signs Temp 97.6 F 06/30/25 12:00 Pulse 70 06/30/25 12:10 Resp 23 H 06/30/25 12:00 BP 107/74 06/30/25 12:00 Pulse Ox 96 06/30/25 12:10 O2 Del Method BiPAP 06/30/25 12:45 O2 Flow Rate 3 06/30/25 11:28 FiO2 36 06/30/25 12:10 06/29/25 06/30/25 06/30/25 22:59 06:59 14:59 Intake Total 800 / 1280 350 / 1630 Output Total 1600 / 2350 2 800 / 800 Balance -800 / -1070 348 / -722 -800 / -800 Weight last 48 hrs Weight 109.452 kg Weight 108.7 kg Physical Exam Narrative: General well-developed obese male in no acute cardiopulmonary stress CV regular rate and rhythm 4/6 systolic ejection murmur best heard at the right upper sternal border Lungs diminished air movement in the bases bilaterally Calves 2+ swelling right leg ulcer noted right leg 1+ swelling left leg Extremity: NARRATIVE EXTREMITY EXAM: Urinary Catheter Management: Salazar Latex Free: Cath Placed During This Visit: yes Reason for Continuing Indwelling Catheter: Accurate Measurement of Urinary Output in Critically Ill Patients Urinary Catheter Date of Insertion: 06/25/25 Urinary Catheter Time of Insertion: 14:50 Data 06/30/25 03:15 06/30/25 03:15 A&P Assessment and plan 1. Venous stasis dermatitis of both lower extremities: Continue BiPAP, furosemide 80 mg p.o. every twice daily plus Zaroxolyn 5 mg daily Patient has been very difficult overnight with combativeness accidentally pulling his IV which was restarted and then pulling his IV on purpose. I updated Trina Anne his daughter phone #[phone] just 06/25/2025. Patient was refusing everything yesterday. Today he is cooperative on 06/29/2025 and had his PICC line placed which shows PICC tip in good position and will resume dobutamine. Start ERIN drew Patient had history of CPAP which he did not wear which was picked up by the company 2. Leg wound, right: Continue with dressing changes and leg elevation 3. Congestive heart failure: Patient has been BiPAP diuresed and was briefly on dobutamine which had long-lasting improvement in his diuresis presumably on basis of improving cardiac output Urine output 2300 cc overnight but did not require dobutamine and now appears to be nearing euvolemic. Small area of circumflex territory ischemia may be a target for stenting but kidneys would be at risk (I spoke with the biomedical engineering director for his insurance on 06/27/2025 and patient is approved for inpatient treatment PICC line will be placed. I spoke with the patient and family and they understand that we cannot continue to replace IVs and certainly will not continue to replace PICC lines if the patient pulls this 1 out. See below for treatment of dementia) PICC line in on 06/29/2025 resume dobutamine 4. Hypotension: Continue midodrine and Florinef based on cortisol level 9 in the setting of blood pressure 69/44 heart rate 70. TSH was 1.82 on 06/05/2025 cortisol 9.42 on 06/22/2025 Current blood pressure 107/74 pulse 70 respirations 23 O2 sat 96% on BiPAP 5. Dementia with behavioral disturbance: Continue aripiprazole to 5 mg twice daily as written for by Dr. Red and continue Zyprexa 5 mg nightly. Patient is improved this morning 06/30/2025. Continue to follow Plan: Continue with sitter to prevent IV discontinuance of the PICC line PDMP PDMP Reviewed: Not Reviewed Attestations Medical Necessity Statement*: Patient remained in the hospital for 1 more day of diuresis and anticipate discharge home tomorrow Coding Level of Care Code 74414 Diagnoses Venous stasis dermatitis of both lower extremities I87.2 Leg wound, right S81.801A Congestive heart failure I50.9 Hypotension I95.9 Dementia with behavioral disturbance F03.918 Time Spent (min) 40
--- NOTE | 2025-06-30 16:16 | USCV_ITS ---
Pawan Marcum Age: 70 Gender: M : 1955 Exam Date: 06/30/2025 09:51 Ordering Phys: Elaine Gaytan Technologist: Exam Location: [facility] [place] Indication: AV Disorder BP: / HR: Rhythm: Sinus Technical Quality: Adequate MEASUREMENTS (Male / Female) Normal Values Medications Patient given IV sedation by anesthesia service, for details please refer to the anesthesia report. Complications None. Proc. Components The patient was brought to the JONATHAN examination room in a fasting state after obtaining an informed consent. The JONATHAN probe was passed into the posterior pharynx , mid-esophagus, distal esophagus, and gastric fundus. JONATHAN was performed at multiple levels. The patient tolerated the procedure well and there were no complications. FINDINGS Left Ventricle Mildly increased left ventricular cavity size. Severely decreased left ventricular systolic function. Left ventricular ejection fraction is estimated at 35 %. Right Ventricle Normal right ventricular size and systolic function. Right Atrium Normal right atrial size. Left Atrium Moderately increased left atrial size. IA Septum Kthaw-vu-[id number] shunt seen at the atrial level with contrast consistent with PFO LA Appendage No thrombus visualized in the left atrial appendage. Mitral Valve Moderately thickened mitral valve. Mitral annular calcification. No mitral valve stenosis. Mild mitral valve regurgitation. Aortic Valve Bioprosthetic valve sitting in normal position, there is moderate bioprosthetic valve stenosis with Aortic valve area if 1.3cm2 by planimetry, there is trace aortic valve insufficiency. Tricuspid Valve Mild tricuspid valve regurgitation. Pulmonic Valve No pulmonic regurgitation. Pericardium No pericardial effusion. Aorta Normal diameter of the aortic root and ascending thoracic aorta. CONCLUSIONS Mildly increased left ventricular cavity size. Severely decreased left ventricular systolic function. Left ventricular ejection fraction is estimated at 35 %. Bioprosthetic valve sitting in normal position, there is moderate bioprosthetic valve stenosis with Aortic valve area if 1.3cm2 by planimetry, there is trace aortic valve insufficiency. Moderately thickened mitral valve. Mitral annular calcification. No mitral valve stenosis. Mild mitral valve regurgitation. Nbjqq-oc-[id number] shunt seen at the atrial level with contrast consistent with PFO Moderately increased left atrial size. There is no pericardial effusion. Riddhi Pena MD (Electronically Signed) Final Date: 30 June 2025 21:58 S
[2025-06-30] MEDS: DOBUTamine drip 500 MG/250 ML PREMIX 6.68 MG IV (17:58)
[2025-06-30] MEDS: FUROsemide 10 mg/mL SDV 10mL 60 MG IVP ×2 (18:00→20:18)
[2025-07-01] VITALS (17 sets, daily range): BP systolic 91–131; BP diastolic 56–83; PULSE 70–80; RESP 13–27; TEMP 36.1–37; O2SAT 78–100
[2025-07-01 02:09] LABS: Hematocrit 23.7 % (37-53); Hemoglobin 6.70 g/dL (11.27-16.99); Mean Corpuscular HGB Conc 28.3 g/dL (30-55); Mean Corpuscular Hemoglobin 27.9 pg (27-33); Mean Corpuscular Volume 98.8 fl (82-101); Nucleated Red Blood Cells % 0.4 %; Platelet Count 109 10^3/cmm (157-399); Red Blood Count 2.40 10^6/uL (3.85-5.65); White Blood Count 5.48 10^3/uL (3.29-11.43)
--- NOTE | 2025-07-01 02:21 | PC.NURSE ---
2153- Patient has been coughing pretty consistently since beginning of shift despite PRN administration of robitussin. His lungs are very diminished. He recieved 60 of lasix at 2018 with 650 out so far. He is 95% on 2 L and is complaining of it being stuffy . Temperature adjusted but he is still coughing pretty bad. Notified Dr. Shaffer and discussed cxr. Recieved orders for Tessalon perrels 100mg po tid.
[2025-07-01 02:26] LABS: Anion Gap 14.6 (5-19); Blood Urea Nitrogen 62 mg/dL (8-23); Calcium 8.6 mg/dL (8.5-10.5); Carbon Dioxide 30 mmol/L (22-29); Chloride 91 mmol/L (98-107); Glucose 163 mg/dL (65-115); Osmolality Calculated 295 mOsm/kg (285-295); Potassium 3.6 mmol/L (3.5-5.1); Sodium 132 mmol/L (136-145)
[2025-07-01 02:28] LABS: Magnesium 2.1 mg/dL (1.7-2.3)
--- NOTE | 2025-07-01 04:02 | PC.NURSE ---
Notified Dr. Shaffer regarding frequent multiform PVC's. Labs obtained early. Hgb dropped from 7 to 6.7, k 3.6, mg 2.1, and phos. Recieved orders to give 40 meq PO kcl, repeat hgb, and get a type & screen.
[2025-07-01] MEDS: polyethylene glycol 3350 Pkt 17 gm PO (05:11)
[2025-07-01] MEDS: DAPAGLIFLOZIN 10 MG TABLET PO (05:11)
[2025-07-01] MEDS: multivitamin therapeutic Tablet 1 TAB PO (05:12)
[2025-07-01] MEDS: FUROsemide 10 mg/mL SDV 10mL 60 MG IVP ×3 (05:13→23:27)
[2025-07-01 05:52] LABS: Hematocrit 23.3 % (37-53); Hemoglobin 6.60 g/dL (11.27-16.99)
--- NOTE | 2025-07-01 06:16 | PC.NURSE ---
h/h rechecked with a result of 6.6. Dr. Shaffer notified and received orders for 1 unit PRBC and to give 20 mg IVP lasix at the beginning of the transfusion. Also clarified potassium order due to patient having scheduled 20 meq PO. Received orders to give additional 20 meq instead of 40.
[2025-07-01] MEDS: FUROsemide 10 mg/mL SDV 2mL 20 MG IVP (10:09)
--- NOTE | 2025-07-01 16:26 | P.PN_ITS ---
Subjective 2 Subjective: Voicing desire to go home JONATHAN 06/30/2025: Mildly increased left ventricular cavity size. Severely decreased left ventricular systolic function. Left ventricular ejection fraction is estimated at 35 %. Bioprosthetic valve sitting in normal position, there is moderate bioprosthetic valve stenosis with Aortic valve area if 1.3cm2 by planimetry, there is trace aortic valve insufficiency. Moderately thickened mitral valve. Mitral annular calcification. No mitral valve stenosis. Mild mitral valve regurgitation. [id number] shunt seen at the atrial level with contrast consistent with PFO Moderately increased left atrial size. Vitals/I&O/Wt Last Vital Signs Temp 97 F L 07/01/25 13:09 Pulse 71 07/01/25 14:39 Resp 15 07/01/25 14:39 BP 119/78 07/01/25 13:09 Pulse Ox 95 07/01/25 14:39 O2 Del Method BiPAP 07/01/25 14:39 O2 Flow Rate 2 07/01/25 09:06 FiO2 30 07/01/25 14:39 07/01/25 07/01/25 07/01/25 06:59 14:59 22:59 Intake Total 360 / 360 1215 / 1215 Output Total 1900 / 3525 Balance -1540 / -3165 1215 / 1215 Weight last 48 hrs Weight 241 lb Weight 241 lb 4.8 oz Physical Exam 2 Narrative: General: In no acute distress Neck: No jugular venous distention Heart: Normal S1 and S2 with a regular rate and rhythm, Lungs: Normal respiratory effort with no use of intercostal muscles, clear lungs sounds to auscultation Extremities: 2+ ble edema Neuro: Alert and oriented x 3 Urinary Catheter Management: Salazar Latex Free: Cath Placed During This Visit: yes Reason for Continuing Indwelling Catheter: Accurate Measurement of Urinary Output in Critically Ill Patients Urinary Catheter Date of Insertion: 06/25/25 Urinary Catheter Time of Insertion: 14:50 Data 07/01/25 05:02 07/01/25 01:53 A&P Assessment and plan 1. Pacemaker: stable function 2. CKD stage 3 due to type 2 diabetes mellitus: Cr with no significant change from baseline bmp in am 3. HTN (hypertension): BP was hypotensive but now more stable continue midodrine and florinef 4. S/P ascending aortic aneurysm repair: 5. Acute on chronic heart failure: EF 35% Diuresing well Continue with dobutamine gtt and current diuretic regimen today cannot advance GDMT due to hypotension 6. S/P aortic valve replacement with bioprosthetic valve: Moderate stenosis on JONATHAN Medical management for now 7. Anemia: severe, Hgb 6.6 Receiving blood transfusion hgb in am PDMP PDMP Reviewed: Not Reviewed Attestations 2 Medical Necessity Statement*: needs atleast another midnight in hospital due to chf and severe anemia Coding Level of Care Code 69157 Diagnoses Pacemaker Z95.0 CKD stage 3 due to type 2 diabetes mellitus E11.22; N18.30 HTN (hypertension) I10 S/P ascending aortic aneurysm repair Z98.890; Z86.79 Acute on chronic heart failure I50.9 S/P aortic valve replacement with bioprosthetic valve Z95.3 Anemia D64.9
--- NOTE | 2025-07-01 16:33 | P.PN_ITS ---
Subjective 2 Subjective: 70-year-old male admitted with tight aortic stenosis on of his TAVR valve and volume overload with bilateral lower extremity cellulitis finish course of antibiotics. He has history of alcoholism but states he quit drinking [employer] beer 2 or 3 months ago. He is not drinking anything alcoholic for 2 to 3 months. Patient has been on BiPAP and dobutamine diuresis. He was initially very difficult and at times combative at night but now cooperative with antipsychotics. Patient is anxious to go home tomorrow. Vitals/I&O/Wt Last Vital Signs Temp 97 F L 07/01/25 13:09 Pulse 71 07/01/25 14:39 Resp 15 07/01/25 14:39 BP 119/78 07/01/25 13:09 Pulse Ox 95 07/01/25 14:39 O2 Del Method BiPAP 07/01/25 14:39 O2 Flow Rate 2 07/01/25 09:06 FiO2 30 07/01/25 14:39 07/01/25 07/01/25 07/01/25 06:59 14:59 22:59 Intake Total 360 / 360 1215 / 1215 Output Total 1900 / 3525 Balance -1540 / -3165 1215 / 1215 Weight last 48 hrs Weight 109.316 kg Weight 109.452 kg Physical Exam 2 Narrative: General well-developed obese male in no acute cardiopulmonary stress currently sitting upright with legs down no hose CV regular rate and rhythm 4/6 systolic ejection murmur best heard at the right upper sternal border Lungs good air movement on posterior exam with mild basilar crackles Calves 2+ to 3 swelling in the legs currently with legs down Urinary Catheter Management: Salazar Latex Free: Cath Placed During This Visit: yes Reason for Continuing Indwelling Catheter: Accurate Measurement of Urinary Output in Critically Ill Patients Urinary Catheter Date of Insertion: 06/25/25 Urinary Catheter Time of Insertion: 14:50 Data 07/01/25 05:02 07/01/25 01:53 A&P Assessment and plan 1. Venous stasis dermatitis of both lower extremities: Patient is continue on dobutamine and BiPAP diuresis with current furosemide 80 mg 3 times daily IV and Zaroxolyn 5 mg daily Patient now cooperative. I think it is reasonable for him to discharge home tomorrow on oral diuretics and fluid restriction. He should be retested for sleep apnea and treated 2. Leg wound, right: Continue with dressing changes and leg elevation 3. Congestive heart failure: Patient has been BiPAP diuresed and was briefly on dobutamine which had long- lasting improvement in his diuresis presumably on basis of improving cardiac output Urine output 2300 cc overnight but did not require dobutamine and now appears to be nearing euvolemic. Small area of circumflex territory ischemia may be a target for stenting but kidneys would be at risk (I spoke with the medical videographer for his insurance on 06/27/2025 and patient is approved for inpatient treatment PICC line will be placed. I spoke with the patient and family and they understand that we cannot continue to replace IVs and certainly will not continue to replace PICC lines if the patient pulls this 1 out. See below for treatment of dementia) PICC line in on 06/29/2025 resumed dobutamine 06/30/1925 4. Hypotension: Increase midodrine to 10 mg and continue Florinef based on cortisol level 9 in the setting of blood pressure 69/44 heart rate 70. TSH was 1.82 on 06/05/2025 cortisol 9.42 on 06/22/2025 Current blood pressure 119/78 pulse 71 respirations 15 O2 sat 95% on BiPAP 5. Dementia with behavioral disturbance: Continue aripiprazole to 5 mg twice daily as written for by Dr. Red and continue Zyprexa 5 mg nightly. Patient is improved this morning 06/30/2025. Continue to follow Plan: No longer requires a sitter. If IV is pulled tonight it is okay because we are likely to send him home tomorrow PDMP PDMP Reviewed: Not Reviewed Attestations 2 Medical Necessity Statement*: Patient remained overnight on dobutamine and BiPAP diuresis anticipate discharge home tomorrow Coding Level of Care Code 29883 Diagnoses Venous stasis dermatitis of both lower extremities I87.2 Leg wound, right S81.801A Congestive heart failure I50.9 Hypotension I95.9 Dementia with behavioral disturbance F03.918 Time Spent (min) 25
[2025-07-02] VITALS (8 sets, daily range): BP systolic 102–115; BP diastolic 72–75; PULSE 70–86; RESP 18–27; TEMP 36.4–36.5; O2SAT 90–100
[2025-07-02] MEDS: MELATONIN 3 MG TABLET 9 MG PO (03:07)
[2025-07-02 03:42] LABS: Hematocrit 25.7 % (37-53); Hemoglobin 7.30 g/dL (11.27-16.99); Mean Corpuscular HGB Conc 28.4 g/dL (30-55); Mean Corpuscular Hemoglobin 27.8 pg (27-33); Mean Corpuscular Volume 97.7 fl (82-101); Nucleated Red Blood Cells % 0.9 %; Platelet Count 101 10^3/cmm (157-399); Red Blood Count 2.63 10^6/uL (3.85-5.65); White Blood Count 6.78 10^3/uL (3.29-11.43)
[2025-07-02 03:56] LABS: Anion Gap 15.1 (5-19); Blood Urea Nitrogen 69 mg/dL (8-23); Calcium 8.9 mg/dL (8.5-10.5); Carbon Dioxide 31 mmol/L (22-29); Chloride 93 mmol/L (98-107); Glucose 199 mg/dL (65-115); Osmolality Calculated 308 mOsm/kg (285-295); Potassium 3.1 mmol/L (3.5-5.1); Sodium 136 mmol/L (136-145)
[2025-07-02] MEDS: polyethylene glycol 3350 Pkt 17 gm PO (05:16)
[2025-07-02] MEDS: FUROsemide 10 mg/mL SDV 10mL 60 MG IVP (05:16)
[2025-07-02] MEDS: DAPAGLIFLOZIN 10 MG TABLET PO (05:17)
[2025-07-02] MEDS: multivitamin therapeutic Tablet 1 TAB PO (05:18)
[2025-07-02] MEDS: DOBUTamine drip 500 MG/250 ML PREMIX 6.68 MG IV (08:50)
--- NOTE | 2025-07-02 11:51 | PC.NURSE ---
cobb catheter removed at 1151. Patient had pulled iv off of picc already, so dobutamine was stopped in the MAR
--- NOTE | 2025-07-02 12:00 | PM.DCS ---
Discharge Providers Date of Admission: 06/19/25 12:32 Date of Discharge: July 02, 2025 Attending Provider at Admission: Davon Torres MD Attending Provider at Discharge: Davon Torres MD Consults: Riddhi Pena MD cardiology Faizan Mejia D.P.M. podiatry Primary Care Provider: BELLA Bahena Diagnoses at Discharge Discharge Diagnosis 1. Pacemaker: Details from hospital stay: Unchanged 2. CKD stage 3 due to type 2 diabetes mellitus: Details from hospital stay: Creatinine dillon to 3 with diuresis. Backing off on diuresis with oral outpatient regimen. Follow-up CBC and BMP in 1 week 3. Essential hypertension: Details from hospital stay: Patient has been hypotensive requiring midodrine due to severe congestive heart failure. His Entresto had to be stopped beginning of admission due to hypotension unable to diurese with blood pressures systolic 70s and 80s 4. S/P ascending aortic aneurysm repair: Details from hospital stay: Patient is on chronic anticoagulation 5. Acute on chronic heart failure: Details from hospital stay: Patient was unable to diurese initially with hypotension. Additionally he was noncompliant with orders for leg elevation, ERIN hose, BiPAP. He was treated for dementia with agitation with antipsychotics and was intermittently compliant now increasingly compliant in the last 3 days. He has performed BiPAP and dobutamine facilitated diuresis with ERIN hose and Salazar catheter plus leg elevation which she is not very compliant with urine output with diuretics around 2000 and with dobutamine at 2 mcg/kg/min up to 3700 per 24 hours. His total output 32,000 and net -18,000 cc 6. S/P aortic valve replacement with bioprosthetic valve: Details from hospital stay: This is a tight valve and likely to require replacement next 6 to 12 months. Follow-up with cardiology. 7. Anemia: Details from hospital stay: Patient's aspirin is stopped as he has not had vascular disease from what I can tell but does have atrial fibrillation 8. Dementia with behavioral disturbance: Details from hospital stay: Patient was seen by Dr. Red and we started him on aripiprazole 5 mg twice a day and olanzapine 5 mg nightly. He initially refused the medication and required Haldol IM and IV. He eventually became compliant and now is accepting that this is helping his mentation and cooperation with medication treatment that he need 9. Venous stasis dermatitis of both lower extremities: Details from hospital stay: Patient was seen by Dr. Mejia and started on Unna boot. With diuresis this has markedly improved shallow ulceration on the right lower anterior lower 10. Cellulitis: Details from hospital stay: Treated with cefazolin then switched to Keflex this has resolved 11. Atrial fibrillation: Details from hospital stay: Continue with apixaban at renally adjusted dose of 2.5 mg twice a day due to anemia 12. CAROLINA (obstructive sleep apnea): Details from hospital stay: Patient wore BiPAP here during the latter part of his 14-day stay. Initially he was refusing. He is agreeable to repeat sleep study and states he had a machine before that which was taken away due to noncompliance Reason for Visit Reason for Visit: Bilateral leg swelling and hallucination Brief History: Pawan Marcum is a 70 year old male has had chronic leg swelling and cared for by his daughter Anjali Anne. She states that recently diuretics were increased and she was changing bandages on his legs 3-4 times a day but they were soaking through with weeping. Patient has shallow ulcers on his legs. Patient has been hallucinating and stated that his ex- and ex-'s boyfriend were in the parking lot. Anjali told her him to lock the doors and go to bed but what he was complaining of had never happened. He also called his daughter Anjali by his eldest daughter Sowmya's name even though Sowmya had at age 16. Patient told me it was 19 June 2025 but thought it was . Hospital Course Hospital Course Patient was admitted to hospital and attempts at BiPAP diuresis were difficult due to patient noncompliant with BiPAP could not tolerate it, would not wear the hose, would not do leg elevation and general voiced willingness cooperation but then not cooperating. He was seen by Dr. Mejia and had Unna boots which helped markedly. The patient discontinued his IV several times and initially refused a Salazar. With counseling from physicians, nurses and his family he eventually consented to Salazar and BiPAP diuresis. With aripiprazole and Zyprexa uptitration following Haldol IV for a few nights he became compliant with treatment and allowed a PICC line. He required a sitter for many nights but that was discontinued 2 nights ago. Patient was seen by cardiology, psychiatry and podiatry. He has underwent dobutamine facilitated BiPAP diuresis and lost 18 L negative fluid. Patient is insistent on going home at this time states he has a 10-year-old daughter that he adopted at home and a 14-year-old daughter with learning disability at home. He is cared for himself by his family members Physical Exam Narrative: General well-developed obese male in no acute cardiopulmonary stress currently sitting upright with legs down no hose CV regular rate and rhythm 4/6 systolic ejection murmur best heard at the right upper sternal border Lungs good air movement on posterior exam with mild basilar crackles Calves 2+ to 3 swelling in the legs currently with legs down not wearing hose Urinary Catheter Management: Salazar Latex Free: Cath Placed During This Visit: yes Reason for Continuing Indwelling Catheter: Accurate Measurement of Urinary Output in Critically Ill Patients Urinary Catheter Date of Insertion: 06/25/25 Urinary Catheter Time of Insertion: 14:50 Discharge Data Studies Completed and Pending Completed Studies During Hospitalization Category Date Time Status CXRP [XR chest 1V portable [id number]] Routine Exams 06/24/25 07:43 Completed CXRP [XR chest 1V portable [id number]] Routine Exams 06/29/25 10:31 Completed XR chest 1V portable [id number] Stat Exams 06/19/25 09:45 Completed CV. echo complete* [id number] Routine Ultrasound 06/24/25 07:43 Completed CV. echo transesophageal [id number] Routine Ultrasound 06/30/25 16:16 Completed US liver [id number] Routine Ultrasound 06/21/25 04:25 Completed Radiology Impressions Liver Ultrasound 06/21/25 04:25 IMPRESSION: 1. Cholelithiasis without evidence for acute cholecystitis. 2. Diffuse gallbladder wall thickening but no pericholecystic fluid. No Sparks's sign. Gallbladder wall thickening is probably related to hepatocellular disease. 3. Bidirectional flow in the portal vein suggesting changes of portal venous hypertension. Chest X-Ray 06/29/25 10:31 IMPRESSION: 1. Satisfactory position right-sided PICC line. 2. Prominent and widened mediastinum and cardiomegaly. Probably due to position of the patient. Adjacent atelectasis may also be present contributing to the widening. 3. Mild pulmonary edema. Laboratory Results WBC 6.78 10^3/uL (3.29-11.43) 07/02/25 03:20 RBC 2.63 10^6/uL (3.85-5.65) L 07/02/25 03:20 Hgb 7.30 g/dL (11.27-16.99) L 07/02/25 03:20 Hct 25.7 % (37-53) L 07/02/25 03:20 MCV 97.7 fl (82-101) 07/02/25 03:20 MCH 27.8 pg (27-33) 07/02/25 03:20 MCHC 28.4 g/dL (30-55) L 07/02/25 03:20 RDW 19.1 % (12.1-15.1) H 07/02/25 03:20 Plt Count 101 10^3/cmm (157-399) L 07/02/25 03:20 MPV 10.7 fL (7.4-10.4) H 07/02/25 03:20 Neut % (Auto) 77.6 % 07/02/25 03:20 Lymph % (Auto) 11.8 % 07/02/25 03:20 [place] % (Auto) 9.0 % 07/02/25 03:20 Eos % (Auto) 0.9 % 07/02/25 03:20 Baso % (Auto) 0.3 % 07/02/25 03:20 Neut # (Auto) 5.26 10^3/uL (1.8-7.7) 07/02/25 03:20 Lymph # (Auto) 0.8 10^3/uL (0.8-4.8) 07/02/25 03:20 [place] # (Auto) 0.6 10^3/uL (0.2-0.9) 07/02/25 03:20 Eos # (Auto) 0.1 10^3/uL (0.0-0.8) 07/02/25 03:20 Baso # (Auto) 0.0 10^3/uL (0.0-0.1) 07/02/25 03:20 Nucleated RBC % (auto) 0.9 % 07/02/25 03:20 Nucleated RBCs # 0.1 /100WBC 07/02/25 03:20 ESR 15 mm/hr (0-10) H 06/19/25 10:23 Specimen Type Arterial 06/19/25 10:10 Sample Site Radial, right 06/19/25 10:10 ABG pH 7.39 (7.35-7.45) 06/19/25 10:10 ABG pCO2 40.4 mmHg (35-45) 06/19/25 10:10 ABG pO2 67.4 mmHg (80.0-100.0) L 06/19/25 10:10 ABG HCO3 24.5 mmol/L (22-26) 06/19/25 10:10 ABG O2 Saturation 92.1 06/19/25 10:10 ABG Base Excess -0.5 mmol/L (-2.0-2.0) 06/19/25 10:10 Anthony Test Pos 06/19/25 10:10 A-a O2 Gradient 4.2 mmHg (5-10) L 06/19/25 10:10 Hematocrit 28.3 % (42-52) L 06/19/25 10:10 Hgb O2 Saturation 89.3 % (95-100) L 06/19/25 10:10 Carboxyhemoglobin 2.2 %THgb (0.4-20.1) 06/19/25 10:10 Methemoglobin 0.9 % (0.4-1.5) 06/19/25 10:10 Total Hemoglobin 9.2 g/dL (14-18) L 06/19/25 10:10 Sodium 135.0 mmol/L (131-143) 06/19/25 10:10 Potassium 4.1 mmol/L (3.5-5.0) 06/19/25 10:10 Glucose 161.0 mg/dL (70-115) H 06/19/25 10:10 Ionized Calcium 1.2 mmol/L (1.1-1.4) 06/19/25 10:10 O2 Delivery Device Nc 06/19/25 10:10 O2 Liters/Min 0.5 % 06/19/25 10:10 Organic Preparation Analyst ID Wlci 06/19/25 10:10 Sodium 136 mmol/L (136-145) 07/02/25 03:20 Potassium 3.1 mmol/L (3.5-5.1) L 07/02/25 03:20 Chloride 93 mmol/L (98-107) L 07/02/25 03:20 Carbon Dioxide 31 mmol/L (22-29) H 07/02/25 03:20 Anion Gap 15.1 (5-19) 07/02/25 03:20 BUN 69 mg/dL (8-23) H 07/02/25 03:20 Creatinine 3.0 mg/dL (0.7-1.2) H 07/02/25 03:20 GFR Calculation 20.9 mL/min (90-130) L 07/02/25 03:20 Glucose 199 mg/dL (65-115) H 07/02/25 03:20 POC Glucose 191 mg/dL (70-110) H 06/27/25 16:35 Calculated Osmolality 308 mOsm/kg (285-295) H 07/02/25 03:20 Lactic Acid 2.9 mmol/L (0.5-2.2) H 06/19/25 10:23 Lactic Acid (Sepsis) 3.6 mmol/L (0.5-2.2) H 06/19/25 12:38 Calcium 8.9 mg/dL (8.5-10.5) 07/02/25 03:20 Phosphorus 3.9 mg/dL (2.5-4.5) 06/28/25 03:53 Magnesium 2.1 mg/dL (1.7-2.3) 07/01/25 01:53 Total Bilirubin 0.7 mg/dL (0.15-1.2) 06/22/25 03:25 AST 35 U/L (0-40) 06/22/25 03:25 ALT 7 U/L (0-41) 06/22/25 03:25 Alkaline Phosphatase 37 U/L (40-130) L 06/22/25 03:25 Ammonia 18 umol/L (16-60) 06/21/25 05:05 Troponin T Baseline 154 ng/L (0-15) H* 06/19/25 10:23 Troponin T 120 Minute 152.8 ng/L (0-15) H 06/19/25 12:13 Delta Troponin T -1.2 ABS# (0-10) L 06/19/25 12:13 Troponin T Hi Sens 6Hr 143.7 ng/L (0-15) H 06/19/25 16:40 Troponin T Hi Sens 6Hr Delta -10.3 ng/L (0-12) L 06/19/25 16:40 C-Reactive Protein 9.7 mg/L (0.0-4.9) H 06/19/25 10:23 NT-Pro-B Natriuret Pep 32820 pg/mL (0-125) H 06/19/25 10:23 Total Protein 6.0 g/dL (6.6-8.7) L 06/22/25 03:25 Albumin 3.0 g/dL (3.5-5.2) L 06/22/25 03:25 Globulin 3.0 g/dL (1.3-4.6) 06/22/25 03:25 Random Cortisol 9.42 ug/dL (2.47-19.5) 06/22/25 03:25 Urine Color Dark yellow (Yellow) A 06/19/25 10:56 Urine Appearance Clear (CLEAR) 06/19/25 10:56 Urine pH 5.0 (5-7) 06/19/25 10:56 Ur Specific [place] 1.019 (1.005-1.030) 06/19/25 10:56 Urine Protein 1+ (Negative) A 06/19/25 10:56 Urine Glucose (UA) 2+ (Normal) H 06/19/25 10:56 Urine Ketones Negative (Negative) 06/19/25 10:56 Urine Blood Negative (Negative) 06/19/25 10:56 Urine Nitrate Negative (Negative) 06/19/25 10:56 Urine Bilirubin Negative (Negative) 06/19/25 10:56 Urine Urobilinogen 1.0 mg/dL (Negative) 06/19/25 10:56 Ur Leukocyte Esterase Negative (Negative) 06/19/25 10:56 Urine RBC Rare /hpf (0-2) 06/19/25 10:56 Urine WBC None /hpf (0-5) 06/19/25 10:56 Ur Squamous Epith Cells None /hpf (0-5) 06/19/25 10:56 Amorphous Sediment Not Reportable 06/19/25 10:56 Urine Bacteria None /hpf (NONE) 06/19/25 10:56 Levetiracetam 8.4 mcg/mL (6.0-46.0) 06/21/25 05:05 Blood Type O Positive 07/01/25 05:02 Rho(D) Type Rh positive 07/01/25 05:02 Antibody Screen Negative 07/01/25 05:02 Crossmatch See Detail 07/01/25 05:02 Imaging Echo: Radiologist's impression: JONATHAN 06/30/2025 CONCLUSIONS Mildly increased left ventricular cavity size. Severely decreased left ventricular systolic function. Left ventricular ejection fraction is estimated at 35 %. Bioprosthetic valve sitting in normal position, there is moderate bioprosthetic valve stenosis with Aortic valve area if 1.3cm2 by planimetry, there is trace aortic valve insufficiency. Moderately thickened mitral valve. Mitral annular calcification. No mitral valve stenosis. Mild mitral valve regurgitation. [id number] shunt seen at the atrial level with contrast consistent with PFO Moderately increased left atrial size. There is no pericardial effusion. Procedures Performed PICC 06/29/2025 JONATHAN 06/30/2025 Vitals Last Vital Signs Temp 97.6 F 07/02/25 11:49 Pulse 72 07/02/25 11:49 Resp 22 H 07/02/25 11:49 BP 102/73 07/02/25 11:49 Pulse Ox 90 07/02/25 11:49 O2 Del Method Nasal Cannula 07/02/25 11:49 O2 Flow Rate 2 07/02/25 04:15 FiO2 30 07/01/25 20:01 Discharge Plan Discharge Patient Disposition: Home Health Service Condition: Stable Prescriptions: New fludrocortisone 0.1 mg Tablet 0.1 mg PO DAILY Qty: 30 0RF polyethylene glycol 3350 17 gram Powder In Packet 17 g PO DAILY Qty: 30 0RF metolazone 5 mg Tablet 2.5 mg PO DAILY Qty: 30 0RF midodrine 5 mg Tablet 10 mg PO TID Qty: 180 0RF ferrous sulfate 324 mg (65 mg iron) tablet,delayed release (DR/EC) 324 mg PO DAILY Qty: 90 0RF multivitamin with folic acid [Thera] 400 mcg Tablet 1 tab PO DAILY Qty: 90 0RF docusate sodium 250 mg capsule 200 mg PO BID Qty: 60 0RF aripiprazole 10 mg Tablet 5 mg PO BID Qty: 60 0RF olanzapine 5 mg Tablet 5 mg PO BEDTIME Qty: 30 0RF potassium chloride [Klor-Con M20] 20 mEq Tablet,Er Particles/Crystals 20 meq PO BID Qty: 60 0RF furosemide 40 mg Tablet 80 mg PO BID@08,16 Qty: 60 0RF Continued ([facility] lightweight See Rx Instructions .Route .MEDSUPPLY Qty: 1 0RF Rx Instructions: Lightweight wheelchair for in home use ([facility]) diabetic shoes with inserts See Rx Instructions .Route .MEDSUPPLY Qty: 1 0RF Rx Instructions: As directed ([facility]) o2 at 3L per nasal cannula See Rx Instructions .Route .MEDSUPPLY Qty: 1 0RF Rx Instructions: Room air O2 sats were 83. After 3L O2 went up to 90's however when walking still at 89 on 3 L O2. Home (company) nitroglycerin 0.3 mg tablet, sublingual 0.3 mg sublingual Q5M PRN (Reason: chest pain) Qty: 30 0RF Rx Instructions: do not exceed 3 doses per episode ([facility]) Diabetic shoes with inserts See Rx Instructions .Route .MEDSUPPLY Qty: 1 0RF Rx Instructions: As directed ([facility]) nebulizer accessories Kit See Rx Instructions .Route Qty: 1 0RF Rx Instructions: As directed ([facility]) compressor, for nebulizer Device See Rx Instructions .Route Qty: 1 0RF Rx Instructions: As directed ([facility]) Dexcom G7 Sensor Device See Rx Instructions .Route Qty: 3 5RF Rx Instructions: As directed ([facility]) Dexcom G7 Humidifier Attendant Misc See Rx Instructions .Route Qty: 1 0RF Rx Instructions: As directed tizanidine 4 mg tablet 4 mg PO .HS PRN (Reason: Muscle Spasticity) Qty: 90 0RF ([facility]) Blood pressure cuff and machine See Rx Instructions .Route .MEDSUPPLY Qty: 1 0RF Rx Instructions: As directed sildenafil [Viagra] 50 mg tablet 50 mg PO DAILY PRN (Reason: sexual activity) Qty: 10 2RF levetiracetam 500 mg tablet 500 mg PO QDAY Qty: 30 2RF allopurinol 100 mg tablet 50 mg PO .EVERY OTHER DAY Qty: 30 0RF ([facility]) diabetic shoes with inserts See Rx Instructions .Route .MEDSUPPLY Qty: 1 0RF Rx Instructions: 1 pair Trulicity 1.5 mg/0.5 mL pen injector 1.5 mg SUBCUT .weekly Qty: 6 1RF Rx Instructions: on Thursday fenofibrate 160 mg tablet 160 mg PO DAILY Qty: 90 1RF dapagliflozin propanediol [Farxiga] 10 mg tablet 10 mg PO DAILY Qty: 90 1RF (DME) Diabetic Shoes 3 x insoles See Rx Instructions .Route .MEDSUPPLY Qty: 1 0RF Rx Instructions: As directed: [facility] tamsulosin 0.4 mg capsule 0.4 mg PO BEDTIME atorvastatin 40 mg tablet 40 mg PO QPM Changed Eliquis 5 mg tablet 2.5 mg PO BID Qty: 1 1RF Discontinued furosemide [Lasix] 40 mg tablet 40 mg PO BID 1 Days Qty: 2 0RF cephalexin 500 mg capsule 500 mg PO BID Qty: 14 0RF furosemide [Lasix] 20 mg tablet 20 mg PO DAILY Qty: 5 0RF Rx Instructions: take every afternoon X 5 days (add to morning dose in pill packs to equal 40 mg per day) aspirin 81 mg tablet,delayed release (DR/EC) 81 mg PO DAILY Qty: 90 1RF metolazone 2.5 mg tablet 2.5 mg PO .QOD 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 Design 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 OK for DC: Podiatry and Hospitalist Other Ambulatory Orders: Basic Metabolic Panel (Routine) Timeframe: 1 Week Facility: [facility] - Location: Lab - Main Lab Ordered By: Davon Torres Complete Blood Count w/Auto (Routine) Timeframe: 1 Week Location: Determined by Patient Ordered By: Davon Torres Sleep Study W Sleep Stage (Routine) Timeframe: 1 Week Facility: [facility] - Location: [facility] Ordered By: Davon Torres Referrals: Lora Buchanan FNP-C [Primary Care Provider, Family Practice] - 07/04/25 12:00 pm Elaine Gaytan FNP [Nurse Practitioner, Cardiology] - 1 week WOUND CARE CLINIC, [Staff Physician, Unknown] - 4-7 days Discharge Diet: Cardiac, Diabetic and Low Salt Discharge Activity: Limit activity as instructed Patient Instructions: Congestive Heart Failure, Chronic Kidney Disease (GEN), Dementia (GEN), Stasis Dermatitis (GEN), Opioid Safety, Patient Portal & Yimi Instructions Activity Restrictions/Additional Instructions: PODIATRY DISCHARGE INSTRUCTIONS--DR. MEJIA -Dressing changes: Patient needs to have compression wrap applied at least every other day to bilateral lower extremities until right leg wound heals -Follow up: Follow-up at [facility] wound care within 7 days of discharge from hospital -Weightbearing status: Weightbearing as tolerated -Please contact podiatry clinic at [phone] with any questions regarding patient's discharge Weigh yourself on arrival home and rest on your scale. This is to get an accurate weight on your scale. You have fluid in your lungs and on your legs which will gradually decrease if the diuretics are effective and you use CPAP, compression hose and elevate your legs as well as take your diuretics. You need to follow a 1500-calorie diabetic diet for weight loss and avoid all sugar, desserts and drinks with calories such as juice milk sodas Elevate your legs whenever not walking. If you are unable to void urine this may be related to midodrine which is used to increase your blood pressure for diuresis. If that is the case you need to return to the hospital for a Salazar catheter Follow-up with sleep medicine for a new CPAP machine as soon as possible this will help you not retain fluid. Follow a 1500 cc fluid restriction Do not take any ibuprofen or anti-inflammatories due to your chronic kidney disease. It will cause you to require dialysis Discharge Attestations Time Spent in Discharge Care*: greater than 30 min Time Spent in Smoking Cessation: not smoking anymore Quality Metrics Clinical Quality Measures [ No reported AMI, CVA or VTE this stay] Coding Level of Care Code 41747 Diagnoses Pacemaker Z95.0 CKD stage 3 due to type 2 diabetes mellitus E11.22; N18.30 Essential hypertension I10 Hypertension type: essential hypertension S/P ascending aortic aneurysm repair Z98.890; Z86.79 Acute on chronic heart failure I50.9 S/P aortic valve replacement with bioprosthetic valve Z95.3 Anemia D64.9 Dementia with behavioral disturbance F03.918 Venous stasis dermatitis of both lower extremities I87.2 Cellulitis L03.90 Atrial fibrillation I48.91 [place] (obstructive sleep apnea) G47.33 Time Spent (min) 60
--- NOTE | 2025-07-02 13:13 | PC.NURSE ---
patient weights 237lb on standing scale.
--- NOTE | 2025-07-02 13:18 | P.PN_ITS ---
Subjective 2 Subjective: Breathing better. leg edema much improved. patient would like to go home Vitals/I&O/Wt Last Vital Signs Temp 97.6 F 07/02/25 11:49 Pulse 72 07/02/25 11:49 Resp 22 H 07/02/25 11:49 BP 102/73 07/02/25 11:49 Pulse Ox 90 07/02/25 11:49 O2 Del Method Nasal Cannula 07/02/25 11:49 O2 Flow Rate 2 07/02/25 04:15 FiO2 30 07/01/25 20:01 07/01/25 07/02/25 07/02/25 22:59 05:59 14:59 Intake Total 370 / 1335 740.263 / 740.263 Output Total 1250 / 2950 800 / 3750 1050 / 1050 Balance -1250 / -1735 -430 / -2415 -309.737 / -309.737 Weight last 48 hrs Weight 237 lb Weight 238 lb 9.6 oz Weight 241 lb Physical Exam 2 Narrative: General: In no acute distress Neck: No jugular venous distention sitting upright in chair Heart: Normal S1 and S2 with a regular rate and rhythm Lungs: Normal respiratory effort with no use of intercostal muscles, clear lungs sounds to auscultation Extremities: 2+ ble edema Neuro: Alert and oriented x 3 Urinary Catheter Management: Salazar Latex Free: Cath Placed During This Visit: yes Reason for Continuing Indwelling Catheter: Accurate Measurement of Urinary Output in Critically Ill Patients Urinary Catheter Date of Insertion: 06/25/25 Urinary Catheter Time of Insertion: 14:50 Data 07/02/25 03:20 07/02/25 03:20 A&P Assessment and plan 1. Pacemaker: stable function 2. CKD stage 3 due to type 2 diabetes mellitus: CR steadily rising changing IV diuretic to oral today 3. HTN (hypertension): had hypotension BP stable on midodrine 4. S/P ascending aortic aneurysm repair: 5. Acute on chronic heart failure: reduced EF of 35% Diuresed well ( net neg 18 L this hospitalization) cannot advance GDMT due to hypotension and rising Cr would avoid florinef if possible for treatment of hypotension in the future due to CHF and volume overload changed IV lasix to 80 mg p.o. twice daily and metolazone 2.5 mg daily 6. S/P aortic valve replacement with bioprosthetic valve: Moderate stenosis on JONATHAN Medical management for now 7. Anemia: severe, Hgb 6.6, increased to 7.3 after transfusion yesterday On Eliquis for afib cbc and bmp next week should have anemia eval with PCP and GI if not yet done and consider Watchman device instead of chronic orl anticoagulation 8. Persistent atrial fibrillation: V paced with normal HR continue Eliquis but needs evaluation and work up for his anemia as outpatient Plan: discharge today with close follow up Return to Cardiology clinic in 2 weeeks (primary Purchasing Administrator for patient is Dr. Pena) PDMP PDMP Reviewed: Not Reviewed Attestations 2 Medical Necessity Statement*: discharging today Coding Level of Care Code Acute Code for Chg Fwd Diagnoses Pacemaker Z95.0 CKD stage 3 due to type 2 diabetes mellitus E11.22; N18.30 HTN (hypertension) I10 S/P ascending aortic aneurysm repair Z98.890; Z86.79 Acute on chronic heart failure I50.9 S/P aortic valve replacement with bioprosthetic valve Z95.3 Anemia D64.9 Persistent atrial fibrillation I48.19
== END 2025-07-02 14:17 | disposition home health service (06) | DRG 637 ==
LOC: ER 11:53 → ER IP 12:32 → MEDSURG 13:15 → CSU 06-24 16:15
PROVIDERS: Internal Medicine; Internal Medicine Cardiovascular Disease; Admitting Provider Internal Medicine; Emergency Provider Emergency Medicine; PCP Nurse Practitioner Family; Visit Provider Internal Medicine
PROC: (CPT 93312; principal; 2025-06-30 11:00)
DX: E11.622 Type 2 diabetes mellitus with other skin ulcer (principal); I50.23 Acute on chronic systolic (congestive) heart failure; L03.115 Cellulitis of right lower limb; R44.3 Hallucinations, unspecified; L03.116 Cellulitis of left lower limb; I42.8 Other cardiomyopathies; J96.11 Chronic respiratory failure with hypoxia; I13.0 Hypertensive heart and chronic kidney disease with heart failure and stage 1 through stage 4 chronic kidney disease, or unspecified chronic kidney disease; F03.918 Unspecified dementia, unspecified severity, with other behavioral disturbance; I48.19 Other persistent atrial fibrillation; E87.3 Alkalosis; L97.929 Non-pressure chronic ulcer of unspecified part of left lower leg with unspecified severity; L97.919 Non-pressure chronic ulcer of unspecified part of right lower leg with unspecified severity; I95.9 Hypotension, unspecified; M79.89 Other specified soft tissue disorders; I87.8 Other specified disorders of veins; E66.9 Obesity, unspecified; E78.2 Mixed hyperlipidemia; I27.20 Pulmonary hypertension, unspecified; G47.33 Obstructive sleep apnea (adult) (pediatric); K21.9 Gastro-esophageal reflux disease without esophagitis; N18.30 Chronic kidney disease, stage 3 unspecified; M10.9 Gout, unspecified; E11.22 Type 2 diabetes mellitus with diabetic chronic kidney disease; D63.1 Anemia in chronic kidney disease; Z95.0 Presence of cardiac pacemaker; Z79.899 Other long term (current) drug therapy; Z79.01 Long term (current) use of anticoagulants; Z68.35 Body mass index [BMI] 35.0-35.9, adult; Z99.81 Dependence on supplemental oxygen; Z79.82 Long term (current) use of aspirin; Z88.8 Allergy status to other drugs, medicaments and biological substances; Z95.2 Presence of prosthetic heart valve; Z87.891 Personal history of nicotine dependence; Z91.199 Patient's noncompliance with other medical treatment and regimen due to unspecified reason
CPT/HCPCS: 36415; 36416; 36430; 36573; 36592; 36600; 51702; 71045; 76705; 80048; 80051; 80053; 80177; 81001; 82140; 82330; 82533; 82805; 82962; 83605; 83735; 83880; 84100; 84484; 85014; 85018; 85025; 85651; 86140; 86850; 86900; 86920; 87040; 93005; 93306; 93312; 93320; 93325; 94640; 94660; 94664; 96372; 96374; 96375; 97161; 97165; 99285; A9281; J0690; J1250; J1630; J1938; J2060; J2704; J3411; J7040; J9999; P9016; P9046

== ENCOUNTER 2025-06-27 13:15 | Oncology outpatient (recurring) (ONCR) | payer MEDICARE, MEDICAID, SELFPAY | END 2025-06-30 23:59 | disposition home or self-care (01) | PROVIDERS: PCP Nurse Practitioner Family; Visit Provider Internal Medicine Medical Oncology | DX: Z53.9 Procedure and treatment not carried out, unspecified reason (principal) | CPT/HCPCS: 99213 ==

== ENCOUNTER 2025-07-05 12:37 | Emergency (ER) | payer MEDICARE, MEDICAID, SELFPAY ==
[2025-07-05] VITALS (8 sets, daily range): BP systolic 96–119; BP diastolic 64–80; PULSE 71–72; RESP 16–20; TEMP 36.4; O2SAT 88–95; BMI 33.6
--- OUTSIDE RECORDS SUMMARY | 2025-07-05 12:42 | XMS_ITS | Encounter Summary ---
Author Organization [facility] Address [address] [place] [address] Care Team Providers Care Voting Machine Repairer Name Role Phone Simran Hyman MD Primary Care Provider Unavail le Encounter Details Date Type Department Care Team (Latest Contact Info) Description 12/30/2005 Outpatient Historical [facility] [address] 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
--- OUTSIDE RECORDS SUMMARY | 2025-07-05 12:42 | XMS_ITS | Encounter Summary ---
Author Organization [employer] Address [address] [place] [address] Care Team Providers Care Wall Steamer Name Role Phone Unavailable Primary Care Provider Unavailabl e Reason for Visit * Reason Onset Date Comments Medication Problem 05/31/2025 Medication Ad herence Review Encounter Details Date Type Department Care Team ([facility] st Contact Info) Description 05/31/2025 Patient Outreach [facility] Natural Gas Trader Management [address], [address] [place] [address] Mile Quijano Medication Problem (Medication Adherence Review/) Social History Tobacco Use Types Packs/Day Years [...] on file 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 Left Voicemail with callback number ([phone]) to discuss medication adherence and ensure patient is tolerating all medications without adverse events or barriers to medication adherence. Mile Quijano Specialty Patch Press Operator [facility] documented in this encounter Plan of Treatment Not on file documented as of this encounter Visit Diagnoses Not on filedocumented in this encounter
--- OUTSIDE RECORDS SUMMARY | 2025-07-05 12:42 | XMS_ITS | Clinical Summary ---
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
--- OUTSIDE RECORDS SUMMARY | 2025-07-05 12:42 | XMS_ITS | Encounter Summary ---
Author Organization [facility] Address [address] [place] [address] Care Team Providers Care Space Technologist Name Role Phone Simran Hyman MD Primary Care Provider Unavail le Encounter Details Date Type Department Care Team (Latest Contact Info) Description 12/30/2005 Outpatient Historical 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
--- OUTSIDE RECORDS SUMMARY | 2025-07-05 12:43 | XMS_ITS | Clinical Summary ---
Author Organization [facility] Address [address] [place] [address] Phone Care Team Providers Care Gear Tooth Grinding Machine Operator Name Role Phone Libra Buchanan Primary Care Provider [phone] Allergies Active Allergy Reactions Criticality Noted Date [...] battery change in July 2022 of his [employer] device. History of CHB Interrogation of [...] obtaining, if possible, renal pathology slides from [facility] to review. We plan to reach out [...] Department Care Team Description 06/12/2025 Documentation Only [facility] [address] [place] [id number] Emma Maxwell 06/12/2025 Documentation Only [facility] [address] [place] [address] Jen Nicholas MD 06/12/2025 Documentation Only [facility] [address] [place] [address] Tripp Carter MA 06/07/2025 Telephone [facility], [facility] [address] [place] [address] Yolis Cohen MA from Last [...] PRINT/EXTERNAL (NON-INTERFACED LABS) - 06/08/2025 10:21 AM [facility] Clinical Laboratory [address] [place] [address] Dr. Maria T Martinez, Offset Printing Pressmen Frannie King NP LAB BLOOD ORDERABLES Belinda l Result Performing Organization Address [facility] Co de Phone Number PRINT/EXTERNAL (NON-INTERFACED LABS) * PTH, Intact (06/08/2025) Parathyroid Hormone, Intact 46.2 pg/mL PRINT/CO OP AL (NON-INTERFACE D LABS) Blood Venous blood / Unknown 06/08/2025 Narrative PRINT/EXTERNAL (NON-INTERFACED LABS) - 06/08/2025 10:21 AM [facility] [address] [place] [address] [address] [address] Maria T Martinez, Offset Printing Pressmen Frannie King NP LAB BLOOD ORDERABLES Belinda [...] PRINT/EXTERNAL (NON-INTERFACED LABS) - 06/08/2025 10:21 AM [facility] Clinical Laboratory [address] [place] [address] Dr. Maria T Martinez, Offset Printing Pressmen us Frannie King [address] [employer] LAB BLOOD ORDERABLES Belinda l Result PRINT/EXTERNAL (NON-INTERFACED LABS) from Last 3 Months Insurance Medicaid [place] ([id number]) [id number] Care Teams Gear Tooth Grinding Machine Operator Relationship Specialty Start Date End Date Libra Buchanan [address] [place] [id number] PCP - General Nephrology 12/13/24
--- OUTSIDE RECORDS SUMMARY | 2025-07-05 12:43 | XMS_ITS | Clinical Summary ---
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 Tyler gilman [phone], fax [phone] Procedures Procedure Name Priority Date/Time Associated Diagnosis Comments HEMOGLOBIN A1C Routine 11/12/2022 6:58 PM CDT from Last 3 Months or Most Recently Relevant to Health Maintenance Results * HEMOGLOBIN A1C (11/12/2022 6:58 PM CDT) HEMOGLOBIN A1C 5.4 <=5.6 % 11/14/2022 9:32 AM CDT [facility] EST. AVG GLUCOSE, A1C 108 mg/dL 11/14/2022 9:32 AM CDT [facility] Blood Venipuncture / Unknown 11/12/2022 6:58 PM CDT 11/12/2022 7:02 PM CDT Narrative [facility] - 11/14/2022 9:32 AM CDT HGB A1C INTERPRETATION NORMAL: <5.7% PRE-DIABETES: 5.7 - 6.4% DIABETES: 6.5% OR GREATER Nyla Sanchez DO CHEMISTRY ORDERABLES Final Resu lt [facility] CLIA # [id number] [address] [address] from Last 3 Months or Most Recently Relevant to Health Maintenance Insurance [place] [address] [facility] COM[facility]TE [facility] [id number] Advance Directives For more information, please contact: [phone] * Full Code (Latest Code Status on File) Date Activated Date Inactivated Comments 11/13/2022 4:09 PM 11/20/2022 10:47 PM
--- NOTE | 2025-07-05 13:21 | ECG_ITS ---
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 Measurements Intervals [place] Rate: 72 P: 0 [place]: 0 QRS: -66 QRSD: 228 T: 122 QT: 508 QTc: 559 Interpretive Statements ELECTRONIC VENTRICULAR PACEMAKER ABNORMAL RHYTHM ECG Compared to ECG 06/19/2025 15:32:22 No significant changes Electronically Signed On 07-05-2025 23:40:43 BAND SPLICER by Honorio Scott M.D. [email or web address]
--- NOTE | 2025-07-05 13:21 | XR_ITS ---
WS: [id number] Portable AP upright chest, 07/05/2025 Clinical Data: swelling Comparison: Portable chest, 06/29/2025 Findings: The heart is enlarged. There is an aortic valve replacement. There our midline sternotomy sutures. There is a 2-lead cardiac pacemaker with the generator in the left axilla. No pneumonia or pneumothorax is seen. The pulmonary vascularity is not increased. No nodules, masses or effusions are s een. XR/XR chest 1V portable [id number] Impression: 1. Cardiomegaly. 2. 2-lead cardiac pacemaker.
--- NOTE | 2025-07-05 13:22 | W.ED.EXTPRO ---
HPI - Extremity Problem General: Chief complaint: Extremity Problem,Nontraumatic Stated complaint: Both legs hurt and swelling Time Seen by Provider: 07/05/25 13:21 History of Present Illness: 70-year-old man with a history of sleep apnea, dementia, atrial fibrillation, chronic anticoagulation on Eliquis, hypertension, nonischemic cardiomyopathy, hyperlipidemia, aortic valve stenosis, type 2 diabetes mellitus and gout who comes to the emergency room today with concerns that he had been short of breath this morning. Family is also concerned about him living alone. He does not want to live with them and they are wanting to find out if they can make him go into a snf. He seems awake and alert and says he refuses to go. Family does not report any actions that would be a danger to himself or others. Related Data Home Medications ?Medication ?Instructions ?Recorded ?Confirmed tamsulosin 0.4 mg capsule 0.4 mg PO BEDTIME 02/23/25 07/05/25 atorvastatin 40 mg tablet 40 mg PO QPM 06/08/25 07/05/25 aspirin 81 mg tablet,delayed 81 mg PO DAILY 07/05/25 07/05/25 release docusate sodium 250 mg capsule 250 mg PO BID 07/05/25 07/05/25 metolazone 2.5 mg tablet 2.5 mg PO DAILY 07/05/25 07/05/25 midodrine 10 mg tablet 10 mg PO TID 07/05/25 07/05/25 Previous Rx's ?Medication ?Instructions ?Recorded Blood pressure cuff and machine #1 ea 06/27/22 o2 at 3L per nasal cannula #1 ea 08/11/22 nitroglycerin 0.3 mg sublingual 0.3 mg sublingual Q5M PRN chest 10/08/22 tablet pain #30 tabs Diabetic shoes with inserts #1 ea 04/24/23 wheelchair #1 ea 06/02/24 compressor, for nebulizer #1 ea 06/07/24 nebulizer accessories #1 ea 06/07/24 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,remote sensing engineer,cont #1 ea 06/20/24 (Dexcom G7 Medical Device Engineer) sildenafil 50 mg tablet (Viagra) 50 mg PO DAILY PRN sexual activity 02/24/25 #10 tabs allopurinol 100 mg tablet 50 mg (1/2 x 100 mg) PO .EVERY 03/24/25 OTHER DAY #30 tabs diabetic shoes with inserts #1 ea 04/13/25 dapagliflozin propanediol 10 mg 10 mg PO DAILY #90 tabs 04/14/25 tablet (Farxiga) dulaglutide 1.5 mg/0.5 mL 1.5 mg (0.5 mL) SUBCUT .weekly #6 04/14/25 subcutaneous pen injector mL (Trulicity) fenofibrate 160 mg tablet 160 mg PO DAILY #90 tabs 04/14/25 Diabetic Shoes 3 x insoles #1 ea 04/18/25 diabetic shoes with inserts #1 ea 05/17/25 apixaban 5 mg tablet (Eliquis) 2.5 mg (1/2 x 5 mg) PO BID #1 tab 07/02/25 aripiprazole 10 mg tablet 5 mg (1/2 x 10 mg) PO BID #60 tabs 07/02/25 ferrous sulfate 324 mg (65 mg 324 mg PO DAILY #90 tabs 07/02/25 iron) tablet,delayed release fludrocortisone 0.1 mg tablet 0.1 mg PO DAILY #30 tabs 07/02/25 furosemide 40 mg tablet 80 mg (2 x 40 mg) PO BID@08,16 #60 07/02/25 tabs multivitamin with folic acid 400 1 tab PO DAILY #90 tabs 07/02/25 mcg tablet (Thera) olanzapine 5 mg tablet 5 mg PO BEDTIME #30 tabs 07/02/25 polyethylene glycol 3350 17 gram 17 g PO DAILY #30 ea 07/02/25 oral powder packet potassium chloride 20 mEq 20 meq PO BID #60 tabs 07/02/25 tablet,extended release(part/cryst) (Klor-Con M) 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 sensor (Dexcom G7 #3 ea 07/04/25 Sensor device) levetiracetam 500 mg tablet 500 mg PO QDAY #30 tabs 07/04/25 tizanidine 4 mg tablet 4 mg PO .HS PRN Muscle Spasticity 07/04/25 #90 tabs Allergies Allergy/AdvReac Type Severity Reaction Status Date / Time fentanyl Allergy Unknown Verified 07/05/25 12:51 lisinopril AdvReac Mild Coughing Verified 07/05/25 12:51 Review of Systems Narrative: Constitutional symptoms: Negative except as documented in HPI. Skin symptoms: Negative except as documented in HPI. Eye symptoms: Negative except as documented in HPI. ENMT symptoms: Negative except as documented in HPI. Respiratory symptoms: Negative except as documented in HPI. Cardiovascular symptoms: Negative except as documented in HPI. Gastrointestinal symptoms: Negative except as documented in HPI. Genitourinary symptoms: Negative except as documented in HPI. Musculoskeletal symptoms: Negative except as documented in HPI. Neurologic symptoms: Negative except as documented in HPI. Psychiatric symptoms: Negative except as documented in HPI. Endocrine symptoms: Negative except as documented in HPI. PFSH ED PFSH: Medical History (Updated 07/05/25 @ 16:06 by Meli Urbina MD) Sleep apnea in adult Dementia with behavioral disturbance Venous stasis dermatitis of both lower extremities Atrial fibrillation Rotator cuff arthropathy of right shoulder Osteoarthritis of shoulders, bilateral Bilateral shoulder pain Pulmonary HTN Nonischemic cardiomyopathy Mixed hyperlipidemia Nonrheumatic aortic (valve) stenosis HTN (hypertension) Severe obstructive sleep apnea Nocturnal hypoxemia [place] (obstructive sleep apnea) ARUNA (acute kidney injury) Bilateral foot pain Generalized weakness Acute encephalopathy Generalized muscle weakness Acute alteration in mental status Confusion Epistaxis Anticoagulation adequate with anticoagulant therapy Transaminitis Daytime sleepiness Enrolled in chronic care management Gout attack Acute and chronic respiratory failure with hypoxia Ascending aortic aneurysm Congestive heart failure Pneumonia Acute and chronic respiratory failure with hypoxia Erectile dysfunction Type 2 diabetes mellitus Chronic kidney disease Anemia Diarrhea Diabetic foot Idiopathic gout, right ankle and foot DDD (degenerative disc disease), lumbosacral Surgical History (Updated 07/03/25 @ 00:00 by FAVIO Luis) Hx of arthroscopy of left knee Hx of tooth extraction History of cardiac pacemaker Family History Mother CAD (coronary artery disease) Brother Cancer Other Diabetes mellitus, type 2 Hypertension Denies family history of Diabetes Clotting disorder Dementia Chronic kidney disease (CKD) Suicide Anesthesia complication Bleeding disorder Lung disease Stroke Social History (Updated 06/19/25 @ 20:10 by Davon Torres MD) Smoking and tobacco/nicotine status: former use of tobacco/nicotine Second hand smoke exposure: No Alcohol intake: current Alcohol intake frequency: 3 or more drinks per day Alcohol type: beer Substance/Drug Use: never Additional social history: 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 He is in the midst of a divorce from his Anisha to whom he has been 15 years but for now he is still reporting her as next of kin. He wants full CODE STATUS Reconfirmed full CODE STATUS desired on 06/19/2025. Patient denies drug use or tobacco use he drink 2-3 beers a day but stopped 90 days ago Adopted: No Caregiver/support person: Yes (spouse) Lives independently: Yes Household members: spouse and children Housing: House Marital status: Number of children: 3 Number of grandchildren: 3 Highest education level completed: 6th Grade service: No Current occupational status: disabled Pets and animals: Yes Current gender identity: Male Special pola needs: No Agree to transfusion: Yes Physical Exam Narrative: EXAM NARRATIVE: General: Alert, no acute distress. Skin: Warm, dry. Head: Normocephalic, atraumatic. Neck: Supple, trachea midline. Eye: Extraocular movements are intact. Ears, nose, mouth and throat: mucosa moist. Cardiovascular: Regular, Normal peripheral perfusion. Respiratory: Lungs are clear to auscultation, respirations are non-labored, breath sounds are equal, Symmetrical chest wall expansion. Gastrointestinal: Soft, Nontender, Non distended Musculoskeletal: Normal ROM, no deformity. Neurological: Alert and oriented, No focal neurological deficit observed. Patient does seem to have some confusion at times. He definitely was unclear on why he was coming here to the emergency room. Psychiatric: Cooperative, appropriate mood & affect. Course Vital Signs: Vital signs: Vital Signs Temperature 97.6 F 07/05/25 12:41 Pulse Rate 72 07/05/25 12:41 Respiratory Rate 20 H 07/05/25 12:41 Blood Pressure 106/73 07/05/25 15:33 Pulse Oximetry 92 07/05/25 15:33 Oxygen Delivery Me thod Room Air 07/05/25 15:33 MDM - Extremity (Nontraumatic) Medical Decision Making Medical decision making: Patient's reason for coming to the emergency room Social determinants: Apparently this is a very complicated social situation. I spoke with social work, family. Last week he had to be placed on a 96-hour hold and was started on some medication for dementia. Or some sort of psychiatric medication. Family is concerned about him living by himself and are wanting to have something done about that. He says he refuses everything and social work said that when he was here he refused everything. I reviewed the patient's medical record. 70-year-old man with a history of sleep apnea, dementia, atrial fibrillation, chronic anticoagulation on Eliquis, hypertension, nonischemic cardiomyopathy, hyperlipidemia, aortic valve stenosis, type 2 diabetes mellitus and gout I reviewed the patient's current home meds Alternate historians: I got some history from social work and from family. Differential diagnosis for patient with shortness of breath includes but is not limited to and based on the above HPI, review of systems and physical exam: Pneumonia. Bronchitis. Asthma or COPD with acute exacerbation. Acute coronary syndrome / [place]. Pulmonary embolism. Anxiety. Congestive heart failure. Viral infections including influenza and Covid-19. Atrial fibrillation. Anxiety. Pleural effusion. Pneumothorax. Orders placed to evaluate differential diagnosis based on the above differential, HPI and physical exam EKG: Time 1339. Rate 72. Normal sinus rhythm, No ST-T changes, no ectopy, paced rhythm, this was reviewed and interpreted by myself the emergency room physician at 1345 Chest x-ray: Cardiomegaly. Pacemaker. No acute process. This was reviewed and interpreted by myself the emergency room physician. I also reviewed the radiology report. Lab Review: Laboratory results were reviewed and interpreted by myself the emergency room physician. No leukocytosis. Stable anemia. BUN and creatinine are elevated over the patient's baseline at 85 and 3.5. Most recently he was at 3. Urinalysis was negative for infection. Troponin is elevated but unchanged delta so this is just due to his kidney function. Reexamination: Patient has borderline oxygen saturations. He is adamant he is not staying in the hospital and he is not being admitted anywhere. Social work worked with the family for quite a while and ultimately they are comfortable taking him home. I did recommend admission for worsening renal failure or at least observation and he declines. He says he has an appointment with his PCP tomorrow. Assessment of risk: Level of risk: High risk patient. Dementia. Anticoagulation. Multiple comorbidities. Hospitalization considerations: I offered and recommended admission with the patient adamantly refuses. I discussed the risks of this up to even . Consultation: I consulted Dr. Matthews who is on-call for the hospitalist service and had agreed to admission but the patient refused to stay Assessment and plan: Acute on chronic renal insufficiency - Discharged home - Discussed plan with patient. Answered any questions. - Evaluation and treatment of this problem were appropriate in the emergency setting. Lab Data 07/05/25 13:50 07/05/25 13:50 Radiology Impressions Chest X-Ray 07/05/25 13:21 Impression: 1. Cardiomegaly. 2. 2-lead cardiac pacemaker. Laboratory Results WBC 7.35 10^3/uL (3.29-11.43) 07/05/25 13:50 RBC 2.90 10^6/uL (3.85-5.65) L 07/05/25 13:50 Hgb 8.20 g/dL (11.27-16.99) L 07/05/25 13:50 Hct 28.9 % (37-53) L 07/05/25 13:50 MCV 99.7 fl (82-101) 07/05/25 13:50 MCH 28.3 pg (27-33) 07/05/25 13:50 MCHC 28.4 g/dL (30-55) L 07/05/25 13:50 RDW 20.0 % (12.1-15.1) H 07/05/25 13:50 Plt Count 116 10^3/cmm (157-399) L 07/05/25 13:50 MPV 11.5 fL (7.4-10.4) H 07/05/25 13:50 Neut % (Auto) 77.2 % 07/05/25 13:50 Lymph % (Auto) 11.8 % 07/05/25 13:50 Stokes % (Auto) 8.7 % 07/05/25 13:50 Eos % (Auto) 1.4 % 07/05/25 13:50 Baso % (Auto) 0.4 % 07/05/25 13:50 Neut # (Auto) 5.67 10^3/uL (1.8-7.7) 07/05/25 13:50 Lymph # (Auto) 0.9 10^3/uL (0.8-4.8) 07/05/25 13:50 Stokes # (Auto) 0.6 10^3/uL (0.2-0.9) 07/05/25 13:50 Eos # (Auto) 0.1 10^3/uL (0.0-0.8) 07/05/25 13:50 Baso # (Auto) 0.0 10^3/uL (0.0-0.1) 07/05/25 13:50 Nucleated RBC % (auto) 0.8 % 07/05/25 13:50 Nucleated RBCs # 0.1 /100WBC 07/05/25 13:50 ESR 25 mm/hr (0-10) H 07/05/25 13:50 Sodium 136 mmol/L (136-145) 07/05/25 13:50 Potassium 4.0 mmol/L (3.5-5.1) 07/05/25 13:50 Chloride 96 mmol/L (98-107) L 07/05/25 13:50 Carbon Dioxide 27 mmol/L (22-29) 07/05/25 13:50 Anion Gap 17.0 (5-19) 07/05/25 13:50 BUN 85 mg/dL (8-23) H* 07/05/25 13:50 Creatinine 3.5 mg/dL (0.7-1.2) H 07/05/25 13:50 GFR Calculation 17.5 mL/min (90-130) L 07/05/25 13:50 Glucose 177 mg/dL (65-115) H 07/05/25 13:50 Calculated Osmolality 314 mOsm/kg (285-295) H 07/05/25 13:50 Lactic Acid 1.8 mmol/L (0.5-2.2) 07/05/25 13:50 Calcium 8.7 mg/dL (8.5-10.5) 07/05/25 13:50 Total Bilirubin 1.4 mg/dL (0.15-1.2) H 07/05/25 13:50 AST 40 U/L (0-40) 07/05/25 13:50 ALT 10 U/L (0-41) 07/05/25 13:50 Alkaline Phosphatase 43 U/L (40-130) 07/05/25 13:50 Troponin T Baseline 211 ng/L (0-15) H* 07/05/25 13:50 Troponin T 120 Minute 207.5 ng/L (0-15) H 07/05/25 15:14 Delta Troponin T -3.5 ABS# (0-10) L 07/05/25 15:14 C-Reactive Protein 16.4 mg/L (0.0-4.9) H 07/05/25 13:50 NT-Pro-B Natriuret Pep 50283 pg/mL (0-125) H 07/05/25 13:50 Total Protein 7.6 g/dL (6.6-8.7) 07/05/25 13:50 Albumin 3.5 g/dL (3.5-5.2) 07/05/25 13:50 Globulin 4.1 g/dL (1.3-4.6) 07/05/25 13:50 Urine Color Yellow (Yellow) 07/05/25 13:15 Urine Appearance Clear (CLEAR) 07/05/25 13:15 Urine pH 6.5 (5-7) 07/05/25 13:15 Ur Specific [place] 1.011 (1.005-1.030) 07/05/25 13:15 Urine Protein Negative (Negative) 07/05/25 13:15 Urine Glucose (UA) 2+ (Normal) H 07/05/25 13:15 Urine Ketones Negative (Negative) 07/05/25 13:15 Urine Blood Negative (Negative) 07/05/25 13:15 Urine Nitrate Negative (Negative) 07/05/25 13:15 Urine Bilirubin Negative (Negative) 07/05/25 13:15 Urine Urobilinogen 1.0 mg/dL (Negative) 07/05/25 13:15 Ur Leukocyte Esterase Negative (Negative) 07/05/25 13:15 Urine RBC 0-2 /hpf (0-2) 07/05/25 13:15 Urine WBC 0-5 /hpf (0-5) 07/05/25 13:15 Ur Squamous Epith Cells 0-5 /hpf (0-5) 07/05/25 13:15 Amorphous Sediment Not Reportable 07/05/25 13:15 Urine Bacteria None seen /hpf (NONE) 07/05/25 13:15 Hyaline Casts 2.05 /lpf 07/05/25 13:15 All radiology interpretation(s) finalized by discharge Discharge Plan Discharge Patient Disposition: Home Clinical Impression: Chronic renal insufficiency, Shortness of breath Condition: Stable Prescriptions: No Action (DME) wheelchair lightweight See Rx Instructions .Route .MEDSUPPLY Qty: 1 0RF Rx Instructions: Lightweight wheelchair for in home use (DME) diabetic shoes with inserts See Rx Instructions .Route .MEDSUPPLY Qty: 1 0RF Rx Instructions: As directed ([facility]) o2 at 3L per nasal cannula See Rx Instructions .Route .MEDSUPPLY Qty: 1 0RF Rx Instructions: Room air O2 sats were 83. After 3L O2 went up to 90's however when walking still at 89 on 3 L O2. Home (company) nitroglycerin 0.3 mg tablet, sublingual 0.3 mg sublingual Q5M PRN (Reason: chest pain) Qty: 30 0RF Rx Instructions: do not exceed 3 doses per episode (DME) Diabetic shoes with inserts See Rx Instructions .Route .MEDSUPPLY Qty: 1 0RF Rx Instructions: As directed ([facility]) nebulizer accessories Kit See Rx Instructions .Route Qty: 1 0RF Rx Instructions: As directed ([facility]) compressor, for nebulizer Device See Rx Instructions .Route Qty: 1 0RF Rx Instructions: As directed ([facility]) Dexcom G7 Medical Device Engineer Misc See Rx Instructions .Route Qty: 1 0RF Rx Instructions: As directed ([facility]) Blood pressure cuff and machine See Rx Instructions .Route .MEDSUPPLY Qty: 1 0RF Rx Instructions: As directed sildenafil [Viagra] 50 mg tablet 50 mg PO DAILY PRN (Reason: sexual activity) Qty: 10 2RF allopurinol 100 mg tablet 50 mg PO .EVERY OTHER DAY Qty: 30 0RF ([facility]) diabetic shoes with inserts See Rx Instructions .Route .MEDSUPPLY Qty: 1 0RF Rx Instructions: 1 pair Trulicity 1.5 mg/0.5 mL pen injector 1.5 mg SUBCUT .weekly Qty: 6 1RF Rx Instructions: on Thursday fenofibrate 160 mg tablet 160 mg PO DAILY Qty: 90 1RF dapagliflozin propanediol [Farxiga] 10 mg tablet 10 mg PO DAILY Qty: 90 1RF ([facility]) Diabetic Shoes 3 x insoles See Rx Instructions .Route .MEDSUPPLY Qty: 1 0RF Rx Instructions: As directed: [facility] ([facility]) Dexcom G7 Sensor Device See Rx Instructions .Route Qty: 3 5RF Rx Instructions: As directed levetiracetam 500 mg tablet 500 mg PO QDAY Qty: 30 2RF tizanidine 4 mg tablet 4 mg PO .HS PRN (Reason: Muscle Spasticity) Qty: 90 0RF tamsulosin 0.4 mg capsule 0.4 mg PO BEDTIME atorvastatin 40 mg tablet 40 mg PO QPM aripiprazole 10 mg Tablet 5 mg PO BID Qty: 60 0RF furosemide 40 mg Tablet 80 mg PO BID@08,16 Qty: 60 0RF polyethylene glycol 3350 17 gram Powder In Packet 17 g PO DAILY Qty: 30 0RF olanzapine 5 mg Tablet 5 mg PO BEDTIME Qty: 30 0RF potassium chloride [Klor-Con M20] 20 mEq Tablet,Er Particles/Crystals 20 meq PO BID Qty: 60 0RF fludrocortisone 0.1 mg Tablet 0.1 mg PO DAILY Qty: 30 0RF multivitamin with folic acid [Thera] 400 mcg Tablet 1 tab PO DAILY Qty: 90 0RF Eliquis 5 mg tablet 2.5 mg PO BID Qty: 1 1RF ferrous sulfate 324 mg (65 mg iron) tablet,delayed release (DR/EC) 324 mg PO DAILY Qty: 90 0RF midodrine 10 mg tablet 10 mg PO TID docusate sodium 250 mg capsule 250 mg PO BID metolazone 2.5 mg tablet 2.5 mg PO DAILY aspirin 81 mg tablet,delayed release (DR/EC) 81 mg PO DAILY Discharge Orders: Discharge ED (Routine); Ordered 07/05/25 Ordered By: Meli Urbina Referrals: Lora Buchanan FNP-C [Primary Care Provider, Family Practice] Discharge Diet: Usual diet Patient Instructions: Opioid Safety, Pain Management, Patient Portal & Yimi Instructions Activity Restrictions/Additional Instructions: Take just 1 dose of Lasix daily for the next couple of days or do what your primary says tomorrow. Do not take your nighttime dose of Lasix tonight (Lasix is also called furosemide) Thank you for choosing [facility] for your healthcare needs today. You have been screened and evaluated and felt safe for discharge. Health conditions do change or evolve sometimes and as such it is important that you follow up with your Primary Doctor to be re checked, 3-5 days is a general good time frame for follow up. You are always welcome to return to the ED for re assessment if your symptoms are worsening or you have new concerns Print Language: Polish Coding Level of Care Code ED Electronic Die Maker for Janelle Medina
[2025-07-05 14:09] LABS: Hematocrit 28.9 % (37-53); Hemoglobin 8.20 g/dL (11.27-16.99); Mean Corpuscular HGB Conc 28.4 g/dL (30-55); Mean Corpuscular Hemoglobin 28.3 pg (27-33); Mean Corpuscular Volume 99.7 fl (82-101); Nucleated Red Blood Cells % 0.8 %; Platelet Count 116 10^3/cmm (157-399); Red Blood Count 2.90 10^6/uL (3.85-5.65); White Blood Count 7.35 10^3/uL (3.29-11.43)
[2025-07-05 14:10] LABS: Glucose Urine UA 2+ (Normal); Nitrate Urine Negative (Negative); Specific Gravity, Urine 1.011 (1.005-1.030)
[2025-07-05 14:22] LABS: Lactic Sepsis W/Reflex 1.8 mmol/L (0.5-2.2)
[2025-07-05 14:23] LABS: Alanine Aminotransferase 10 U/L (0-41); Albumin Level 3.5 g/dL (3.5-5.2); Alkaline Phosphatase 43 U/L (40-130); Anion Gap 17.0 (5-19); Aspartate Amino Transferase 40 U/L (0-40); Carbon Dioxide 27 mmol/L (22-29); Chloride 96 mmol/L (98-107); Creatinine Clr Calc Pharmacy 23.9393; Globulin 4.1 g/dL (1.3-4.6); Glucose 177 mg/dL (65-115); Potassium 4.0 mmol/L (3.5-5.1); Sodium 136 mmol/L (136-145); Total Protein 7.6 g/dL (6.6-8.7)
[2025-07-05 14:25] LABS: Troponin(5th) Baseline 211 ng/L (0-15)
--- NOTE | 2025-07-05 14:36 | PC.NURSE ---
Pt is refusing IV even after DR SHORE informed the pt his TROP is high. Pt stated im not getting a IV and im not staying overnight in the hospital
[2025-07-05 14:49] LABS: Calcium 8.7 mg/dL (8.5-10.5); NT Pro B Type Natriuretic Pept 15827 pg/mL (0-125); Osmolality Calculated 314 mOsm/kg (285-295)
[2025-07-05 14:54] LABS: Blood Urea Nitrogen 85 mg/dL (8-23)
--- NOTE | 2025-07-05 15:04 | PC.PHAR ---
Pts' family states they moved him out of his apartment and in with family member. They were unable to find some of his medications afterward. Family now has a list of medications that have not been filled since February. They will be calling pharmacy for refills.
[2025-07-05 15:41] LABS: Troponin 5 2HR 207.5 ng/L (0-15); Troponin 5 2HR Delta -3.5 ABS# (0-10)
--- NOTE | 2025-07-05 16:28 | PC.NURSE ---
Pt educated at discharge to follow up with pcp and return with any worsening symptoms. Pt O2 was 88% on room air at discharge but pt refused to stay. Pt stated he is leaving right now no matter what.
== END 2025-07-05 16:28 | disposition home or self-care (01) ==
PROVIDERS: Emergency Provider Emergency Medicine; PCP Nurse Practitioner Family
DX: R06.02 Shortness of breath (principal); Z79.01 Long term (current) use of anticoagulants; Z79.82 Long term (current) use of aspirin; Z79.85 Long-term (current) use of injectable non-insulin antidiabetic drugs; Z95.0 Presence of cardiac pacemaker; Z87.891 Personal history of nicotine dependence; E78.2 Mixed hyperlipidemia; E11.22 Type 2 diabetes mellitus with diabetic chronic kidney disease; I13.0 Hypertensive heart and chronic kidney disease with heart failure and stage 1 through stage 4 chronic kidney disease, or unspecified chronic kidney disease; N18.9 Chronic kidney disease, unspecified; I50.9 Heart failure, unspecified
CPT/HCPCS: 36415; 71045; 80053; 81001; 83605; 83880; 84484; 85025; 85651; 86140; 87040; 93005; 99285

== ENCOUNTER 2025-07-06 18:28 | Inpatient (IN) | payer MEDICARE, MEDICAID, SELFPAY ==
[2025-07-06] VITALS (22 sets, daily range): BP systolic 118–161; BP diastolic 78–107; PULSE 70–79; RESP 14–40; TEMP 38.5; O2SAT 91–100
--- NOTE | 2025-07-06 18:34 | XRR_ITS ---
PROCEDURE INFORMATION: Exam: XR Chest Exam date and time: 07/06/2025 6:36 PM Age: 70 years old Clinical indication: Shortness of breath TECHNIQUE: Imaging protocol: Radiologic exam of the chest. Views: 1 view. COMPARISON: CR XR chest 1V portable [id number] 07/05/2025 1:28 PM FINDINGS: Tubes, catheters and devices: Two lead cardiac pacemaker with generator in the left axilla. Lungs: No pulmonary vascular congestion. Pleural spaces: Unremarkable. No pleural effusion. No pneumothorax. Heart/Mediastinum: Cardiomegaly. Aortic valve replacement. Bones/joints: Midline sternotomy sutures. Osteophytes thoracic spine. Other findings: No acute intrathoracic abnormality. Chronic findings as above. XR/XR chest 1V portable [id number] IMPRESSION: 1. No acute intrathoracic abnormality. 2. Chronic findings as above.
--- OUTSIDE RECORDS SUMMARY | 2025-07-06 18:37 | XMS_ITS | Clinical Summary ---
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
--- OUTSIDE RECORDS SUMMARY | 2025-07-06 18:37 | XMS_ITS | Encounter Summary ---
Author Organization [employer] Address [address] [place] [address] Care Team Providers Care Nutrition Faculty Member Name Role Phone Unavailable Primary Care Provider Unavailabl e Reason for Visit * Reason Onset Date Comments Medication Problem 05/31/2025 Medication Ad herence Review Encounter Details Date Type Department Care Team ([facility] st Contact Info) Description 05/31/[address] 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 Left Voicemail with callback number ([phone]) to discuss medication adherence and ensure patient is tolerating all medications without adverse events or barriers to medication adherence. Mile Quijano Specialty Digital Advertising Specialist [facility] documented in this encounter Plan of Treatment Not on file documented as of this encounter Visit Diagnoses Not on filedocumented in this encounter
--- OUTSIDE RECORDS SUMMARY | 2025-07-06 18:37 | XMS_ITS | Encounter Summary ---
Author Organization [facility] Address [address] [place] [address] Care Team Providers Care Door Tender Name Role Phone Simran Hyman MD Primary Care Provider Unavail le Encounter Details Date Type Department Care Team (Latest Contact Info) Description 12/30/2005 Outpatient Historical [facility] [address] [place] [address] [facility] [address] [place] [address] Romana Yan MD [address] [place] [address] [facility] [address] [place] [address] Degeneration of Lumbar or Lumbosacral Intervertebral Disc (Primary Dx) Social History Tobacco Use Types Packs/Day Years Used Date Smoking Tobacco: Never Assessed Sex and Gender Information Value Date Recorded Sex Assigned at Not on file 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
--- OUTSIDE RECORDS SUMMARY | 2025-07-06 18:37 | XMS_ITS | Clinical Summary ---
Author Organization [facility] [employer], [facility] Address [address] [place] [address] Phone Care Team Providers Care Conveyor Console Operator Name Role Phone Libra Buchanan Primary Care Provider [phone] Allergies Active Allergy Reactions Criticality Noted Date [...] battery change in July 2022 of his [employer] device. History of CHB Interrogation of [...] obtaining, if possible, renal pathology slides from [employer] to review. We plan to reach out [...] Department Care Team Description 06/12/2025 Documentation Only [facility] [address] [place] [id number] Emma Maxwell 06/12/2025 Documentation Only [facility] [address] [place] [address] Jen Nicholas MD 06/12/2025 Documentation Only [facility] [address] [place] [address] Tripp Carter MA 06/07/2025 Telephone [facility], [facility] [address] [place] [address] Yolis Cohen MA from Last [...] PRINT/EXTERNAL (NON-INTERFACED LABS) - 06/08/2025 10:21 AM [facility] [employer] Clinical Laboratory [address] [place] [address] Dr. Maria T Martinez, Warehouse Order Picker Frannie King NP LAB BLOOD ORDERABLES Belinda l Result Performing Organization Address [facility] Co de Phone Number PRINT/EXTERNAL (NON-INTERFACED LABS) * PTH, Intact (06/08/2025) Parathyroid Hormone, Intact 46.2 pg/mL PRINT/PHYSICIAN IN PRIVATE PRACTICE AL (NON-INTERFACE D LABS) Blood Venous blood / Unknown 06/08/2025 Narrative PRINT/EXTERNAL (NON-INTERFACED LABS) - 06/08/2025 10:21 AM [facility] [address] [place] [address] [id number] [address] Maria T Martinez, Warehouse Order Picker Frannie King NP LAB BLOOD ORDERABLES Belinda [...] PRINT/EXTERNAL (NON-INTERFACED LABS) - 06/08/2025 10:21 AM [facility] Clinical Laboratory [address] [place] [address] Dr. Maria T Martinez, Warehouse Order Picker us Frannie King PRINCIPAL WEB DEVELOPER LAB BLOOD ORDERABLES Belinda l Result PRINT/EXTERNAL (NON-INTERFACED LABS) from Last 3 Months Insurance Medicaid [place] ([id number]) [id number]) Care Teams Conveyor Console Operator Relationship Specialty Start Date End Date Libra Buchanna [address] [place] [address] PCP - General Nephrology 12/13/24
--- OUTSIDE RECORDS SUMMARY | 2025-07-06 18:37 | XMS_ITS | Clinical Summary ---
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 Tyler gilman [phone], fax [phone] Procedures Procedure Name Priority Date/Time Associated Diagnosis Comments HEMOGLOBIN A1C Routine 11/12/2022 6:58 PM CDT from Last 3 Months or Most Recently Relevant to Health Maintenance Results * HEMOGLOBIN A1C (11/12/2022 6:58 PM CDT) HEMOGLOBIN A1C 5.4 <=5.6 % 11/14/2022 9:32 AM CDT [facility] EST. AVG GLUCOSE, A1C 108 mg/dL 11/14/2022 9:32 AM CDT [facility] [employer] [facility] Blood Venipuncture / Unknown 11/12/2022 6:58 PM CDT 11/12/2022 7:02 PM CDT Narrative [facility] [employer] [facility] - 11/14/2022 9:32 AM CDT HGB A1C INTERPRETATION NORMAL: <5.7% PRE-DIABETES: 5.7 - 6.4% DIABETES: 6.5% OR GREATER Nyla Sanchez DO CHEMISTRY ORDERABLES Final Resu lt [facility] [employer] [facility] CLIA # [id number] [address] [address] from Last 3 Months or Most Recently Relevant to Health Maintenance Insurance [place] [address] [address] DUAL COMPLETE PPO [facility] [id number] Advance Directives For more information, please contact: [phone] * Full Code (Latest Code Status on File) Date Activated Date Inactivated Comments 11/13/2022 4:09 PM 11/20/2022 10:47 PM
--- OUTSIDE RECORDS SUMMARY | 2025-07-06 18:37 | XMS_ITS | Encounter Summary ---
Author Organization [facility] Address [address] [place] [address] Care Team Providers Care Manager Electronic Name Role Phone Simran Hyman MD Primary Care Provider Unavail le Encounter Details Date Type Department Care Team (Latest Contact Info) Description 12/30/2005 Outpatient Historical [facility] [address] 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
--- NOTE | 2025-07-06 18:39 | ECG_ITS ---
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 Measurements Intervals [place] Rate: 71 P: 0 MN: 0 QRS: -55 QRSD: 173 T: 126 QT: 421 QTc: 459 Interpretive Statements ELECTRONIC VENTRICULAR PACEMAKER ABNORMAL RHYTHM ECG Compared to ECG 07/05/2025 13:39:09 No significant changes Electronically Signed On 07-08-2025 13:00:45 INSULATION FOREMAN by Honorio Scott M.D. [email or web address]
--- NOTE | 2025-07-06 18:47 | ED_ITS ---
HPI - SOB/Dyspnea General: Chief Complaint: Shortness of Breath/Dyspnea Stated Complaint: breathing trouble Time Seen by Provider: 07/06/25 18:32 Related Data Home Medications ?Medication ?Instructions ?Recorded ?Confirmed tamsulosin 0.4 mg capsule 0.4 mg PO BEDTIME 02/23/25 1 09/04/24 atorvastatin 40 mg tablet 40 mg PO QPM 06/08/25 aspirin 81 mg tablet,delayed 81 mg PO DAILY 07/05/25 1 09/04/24 release docusate sodium 250 mg capsule 250 mg PO BID 07/05/25 07/05/25 metolazone 2.5 mg tablet 2.5 mg PO DAILY 07/05/2501/22 midodrine 10 mg tablet 10 mg PO TID 07/05/25 Previous Rx's ?Medication ?Instructions ?Recorded Blood pressure cuff and machine #1 ea 06/27/22 o2 at 3L per nasal cannula #1 ea 08/11/22 nitroglycerin 0.3 mg sublingual 0.3 mg sublingual Q5M PRN chest 10/08/22 tablet pain #30 tabs Diabetic shoes with inserts #1 ea 04/24/23 wheelchair #1 ea 06/02/24 compressor, for nebulizer #1 ea 06/07/24 nebulizer accessories #1 ea 06/07/24 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,shorts sifter,cont #1 ea 06/20/24 (Dexcom G7 Principal Statistical Programmer) sildenafil 50 mg tablet (Viagra) 50 mg PO DAILY PRN se xual activity 02/24/25 #10 tabs allopurinol 100 mg tablet 50 mg (1/2 x 100 mg) PO .MICKI RY 03/24/25 OTHER DAY #30 tabs diabetic shoes with inserts #1 ea 04/13/25 dapagliflozin propanediol 10 mg 10 mg PO DAILY #90 tab s 04/14/25 tablet (Farxiga) dulaglutide 1.5 mg/0.5 mL 1.5 mg (0.5 mL) SUBCUT .week ly #6 04/14/25 subcutaneous pen injector mL ([facility]) fenofibrate 160 mg tablet 160 mg PO DAILY #90 tabs Diabetic Shoes 3 x insoles #1 ea 04/18/25 diabetic shoes with inserts #1 ea 05/17/25 apixaban 5 mg tablet (Eliquis) 2.5 mg (1/2 x 5 mg) PO BID #1 tab 07/02/25 aripiprazole 10 mg tablet 5 mg (1/2 x 10 mg) PO BID #6 0 tabs 07/02/25 ferrous sulfate 324 mg (65 mg 324 mg PO DAILY #90 tabs 07/02/25 iron) tablet,delayed release fludrocortisone 0.1 mg tablet 0.1 mg PO DAILY #30 tabs 07/02/25 furosemide 40 mg tablet 80 mg (2 x 40 mg) PO BID@08, 16 #60 07/02/25 tabs multivitamin with folic acid 400 1 tab PO DAILY #90 ta bs 07/02/25 mcg tablet (Thera) olanzapine 5 mg tablet 5 mg PO BEDTIME #30 tabs 10/25 polyethylene glycol 3350 17 gram 17 g PO DAILY #30 ea 07/02/25 oral powder packet potassium chloride 20 mEq 20 meq PO BID #60 tabs 07/02 tablet,extended release(part/cryst) (Klor[employer]Con M) 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 sensor (Dexcom G7 #3 ea 07/04/25 Sensor device) levetiracetam 500 mg tablet 500 mg PO QDAY #30 tabs tizanidine 4 mg tablet 4 mg PO .HS PRN Muscle Spast icity 07/04/25 #90 tabs DME: Walker #1 ea 07/06/25 Allergies Allergy/AdvReac Type Severity Reaction Status Date / Time fentanyl Allergy Unknown Verified 07/06/25 13:39 lisinopril AdvReac Mild Coughing Verified 07/06/25 13:39 PFS ED PFSH: Medical History Sleep apnea in adult Dementia with behavioral disturbance Venous stasis dermatitis of both lower extremities Atrial fibrillation Rotator cuff arthropathy of right shoulder Osteoarthritis of shoulders, bilateral Bilateral shoulder pain Pulmonary HTN Nonischemic cardiomyopathy Mixed hyperlipidemia Nonrheumatic aortic (valve) stenosis HTN (hypertension) Severe obstructive sleep apnea Nocturnal hypoxemia [place] (obstructive sleep apnea) ARUNA (acute kidney injury) Bilateral foot pain Generalized weakness Acute encephalopathy Generalized muscle weakness Acute alteration in mental status Confusion Epistaxis Anticoagulation adequate with anticoagulant therapy Transaminitis Daytime sleepiness Enrolled in chronic care management Gout attack Acute and chronic respiratory failure with hypoxia Ascending aortic aneurysm Congestive heart failure Pneumonia Acute and chronic respiratory failure with hypoxia Erectile dysfunction Type 2 diabetes mellitus Chronic kidney disease Anemia Diarrhea Diabetic foot Idiopathic gout, right ankle and foot DDD (degenerative disc disease), lumbosacral Surgical History Hx of arthroscopy of left knee Hx of tooth extraction History of cardiac pacemaker Family History Mother CAD (coronary artery disease) Brother Cancer Other Diabetes mellitus, type 2 Hypertension Denies family history of Diabetes Clotting disorder Dementia Chronic kidney disease (CKD) Suicide Anesthesia complication Bleeding disorder Lung disease Stroke Social History Smoking and tobacco/nicotine status: former use of tobacco/nicotine Second hand smoke exposure: No Alcohol intake: current Alcohol intake frequency: 3 or more drinks per day Alcohol type: beer Substance/Drug Use: never Additional social history: He worked at a [employer] and [employer] and 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 He is in the midst of a divorce from his Anisha to whom he has been 15 years but for now he is still reporting her as next of kin. He wants full CODE STATUS Reconfirmed full CODE STATUS desired on 06/19/2025. Patient denies drug use or tobacco use he drink 2-3 beers a day but stopped 90 days ago Adopted: No Caregiver/support person: Yes (spouse) Lives independently: Yes Household members: spouse and children Housing: House Marital status: Number of children: 3 Number of grandchildren: 3 Highest education level completed: 6th Grade service: No Current occupational status: disabled Pets and animals: Yes Current gender identity: Male Special pola needs: No Agree to transfusion: Yes Course Vital Signs: Vital signs: Vital Signs Temperature 101.3 F H 07/06/25 18:29 Pulse Rate 70 07/06/25 18:29 Respiratory Rate 40 H 07/06/25 18:29 Blood Pressure 130/80 07/06/25 18:29 Pulse Oximetry 95 07/06/25 18:29 Oxygen Delivery Me thod Nasal Cannula 07/06/25 18:29 Oxygen Flow Rate 4 07/06/25 18:29 Discharge Plan Discharge Condition: Stable Prescriptions: No Action (DME) wheelchair lightweight See Rx Instructions .Route .MEDSUPPLY Qty: 1 0RF Rx Instructions: Lightweight wheelchair for in home use (DME) diabetic shoes with inserts See Rx Instructions .Route .MEDSUPPLY Qty: 1 0RF Rx Instructions: As directed (DME) DME: Walker Unit See Rx Instructions .ROUTE Qty: 1 0RF Rx Instructions: 99 months+ (DME) o2 at 3L per nasal cannula See Rx Instructions .Route .MEDSUPPLY Qty: 1 0RF Rx Instructions: Room air O2 sats were 83. After 3L O2 went up to 90's however when walking still at 89 on 3 L O2. Home (company) nitroglycerin 0.3 mg tablet, sublingual 0.3 mg sublingual Q5M PRN (Reason: chest pain) Qty: 30 0RF Rx Instructions: do not exceed 3 doses per episode (DME) Diabetic shoes with inserts See Rx Instructions .Route .MEDSUPPLY Qty: 1 0RF Rx Instructions: As directed ([facility]) nebulizer accessories Kit See Rx Instructions .Route Qty: 1 0RF Rx Instructions: As directed ([facility]) compressor, for nebulizer Device See Rx Instructions .Route Qty: 1 0RF Rx Instructions: As directed ([facility]) Dexcom G7 Principal Statistical Programmer Misc See Rx Instructions .Route Qty: 1 0RF Rx Instructions: As directed ([facility]) Blood pressure cuff and machine See Rx Instructions .Route .MEDSUPPLY Qty: 1 0RF Rx Instructions: As directed sildenafil [Viagra] 50 mg tablet 50 mg PO DAILY PRN (Reason: sexual activity) Qty: 10 2RF allopurinol 100 mg tablet 50 mg PO .EVERY OTHER DAY Qty: 30 0RF (DME) diabetic shoes with inserts See Rx Instructions .Route .MEDSUPPLY Qty: 1 0RF Rx Instructions: 1 pair Trulicity 1.5 mg/0.5 mL pen injector 1.5 mg SUBCUT .weekly Qty: 6 1RF Rx Instructions: on Thursday fenofibrate 160 mg tablet 160 mg PO DAILY Qty: 90 1RF dapagliflozin propanediol [Farxiga] 10 mg tablet 10 mg PO DAILY Qty: 90 1RF (DME) Diabetic Shoes 3 x insoles See Rx Instructions .Route .MEDSUPPLY Qty: 1 0RF Rx Instructions: As directed: [facility] (DME) Dexcom G7 Sensor Device See Rx Instructions .Route Qty: 3 5RF Rx Instructions: As directed levetiracetam 500 mg tablet 500 mg PO QDAY Qty: 30 2RF tizanidine 4 mg tablet 4 mg PO .HS PRN (Reason: Muscle Spasticity) Qty: 90 0RF tamsulosin 0.4 mg capsule 0.4 mg PO BEDTIME atorvastatin 40 mg tablet 40 mg PO QPM aripiprazole 10 mg Tablet 5 mg PO BID Qty: 60 0RF furosemide 40 mg Tablet 80 mg PO BID@08,16 Qty: 60 0RF polyethylene glycol 3350 17 gram Powder In Packet 17 g PO DAILY Qty: 30 0RF olanzapine 5 mg Tablet 5 mg PO BEDTIME Qty: 30 0RF potassium chloride [Klor-Con M20] 20 mEq Tablet,Er Particles/Crystals 20 meq PO BID Qty: 60 0RF fludrocortisone 0.1 mg Tablet 0.1 mg PO DAILY Qty: 30 0RF multivitamin with folic acid [Thera] 400 mcg Tablet 1 tab PO DAILY Qty: 90 0RF Eliquis 5 mg tablet 2.5 mg PO BID Qty: 1 1RF ferrous sulfate 324 mg (65 mg iron) tablet,delayed release (DR/EC) 324 mg PO DAILY Qty: 90 0RF midodrine 10 mg tablet 10 mg PO TID docusate sodium 250 mg capsule 250 mg PO BID metolazone 2.5 mg tablet 2.5 mg PO DAILY aspirin 81 mg tablet,delayed release (DR/EC) 81 mg PO DAILY Referrals: Lora Buchanan, COST REDUCTION ENGINEER-C [Primary Care Provider, Family Practice] Print Language: Divehi Coding Level of Care Code ED Paving Plant Operator for Janelle Medina
[2025-07-06] MEDS: LORazepam 2 mg/mL INJ 1 mL 1 MG IVP (19:14)
[2025-07-06 19:21] LABS: Hematocrit 30.1 % (37-53); Hemoglobin 8.60 g/dL (11.27-16.99); Mean Corpuscular HGB Conc 28.6 g/dL (30-55); Mean Corpuscular Hemoglobin 28.6 pg (27-33); Mean Corpuscular Volume 100.0 fl (82-101); Nucleated Red Blood Cells % 0.8 %; Platelet Count 116 10^3/cmm (157-399); Red Blood Count 3.01 10^6/uL (3.85-5.65); White Blood Count 9.55 10^3/uL (3.29-11.43)
[2025-07-06 19:34] LABS: ABG PCO2 27.0 mmHg (35-45); ABG PH Result 7.51 (7.35-7.45); Alveolar-Arterial Oxygen Gradi 1.8 mmHg (5-10); Arterial Blood Gas Hematocrit 28.3 % (42-52); Blood Gas Allen Test Pos; Blood Gas LPM 5.0 %; Blood Gas Sample Site Radial, left; Blood Gas Sample Type Arterial; Carboxyhemoglobin 2.1 %THgb (0.4-20.1); Glucose Level-ABG 161.0 mg/dL (70-115); HCO3 ABG 21.6 mmol/L (22-26); Ionized Calcium Level - ABG 1.1 mmol/L (1.1-1.4); Methemoglobin 0.9 % (0.4-1.5); Oxygen Saturation ABG 99.1; PO2 ABG 99.5 mmHg (80.0-100.0); Potassium Level - ABG 3.8 mmol/L (3.5-5.0); Sodium Level - ABG 136.0 mmol/L (131-143)
[2025-07-06 19:42] LABS: Lactic Sepsis W/Reflex 4.9 mmol/L (0.5-2.2)
[2025-07-06 19:49] LABS: Troponin(5th) Baseline 242 ng/L (0-15)
--- NOTE | 2025-07-06 19:51 | W.ED.GENADLT ---
HPI - General Adult General: Chief complaint: Shortness of Breath/Dyspnea Stated complaint: breathing trouble Time Seen by Provider: 07/06/25 18:32 History of Present Illness: 70yo M w/pmhx of CKD stage 3, DM, HTN, CHF, atrial fibrillation on eliquis, COPD, s/p aortic valve replacement w/bioprosthetic valve anemia, dementia w/cc of shortness of breath. On my exam, patient is in acute respiratory distress, is obtunded and is unable to provide history. Patient was promptly intubated. Family at bedside states that he has been increasingly short of breath for the past few days. He has been seen yesterday but did not wish to stay and be admitted. Echocardiogram 06/24/2025: CONCLUSIONS Moderately increased left ventricular cavity size. Severely decreased left ventricular systolic function. Left ventricular ejection fraction is estimated at 30 %. There appeared to be septal bounce which could be secondary to interventricular conduction delay or paced rhythm.Grade III/IV diastolic dysfunction (restrictive filling pattern), severely elevated filling pressures. There appeared to be bioprosthetic valve sitting in a normal position, it appeared to be moderate to severely stenotic, mean gradient 54 mmHg, DESIRE 0.62 cm squared. Mild to moderate aortic valve regurgitation. Moderately thickened mitral valve. Moderate mitral annular calcification. No mitral valve stenosis. Moderate mitral valve regurgitation. Mild tricuspid valve regurgitation. Normal right ventricular size and systolic function. Catheter/pacemaker wire visualized in the right ventricle. There is no pericardial effusion. Right atrial pressure is around 10 mm of mercury. Related Data Home Medications ?Medication ?Instructions ?Recorded ?Confirmed tamsulosin 0.4 mg capsule 0.4 mg PO BEDTIME 02/23/25 07/05/25 atorvastatin 40 mg tablet 40 mg PO QPM 06/08/25 07/05/25 aspirin 81 mg tablet,delayed 81 mg PO DAILY 07/05/25 07/05/25 release docusate sodium 250 mg capsule 250 mg PO BID 07/05/25 07/05/25 metolazone 2.5 mg tablet 2.5 mg PO DAILY 07/05/25 07/05/25 midodrine 10 mg tablet 10 mg PO TID 07/05/25 07/05/25 Previous Rx's ?Medication ?Instructions ?Recorded Blood pressure cuff and machine #1 ea 06/27/22 o2 at 3L per nasal cannula #1 ea 08/11/22 nitroglycerin 0.3 mg sublingual 0.3 mg sublingual Q5M PRN chest 10/08/22 tablet pain #30 tabs Diabetic shoes with inserts #1 ea 04/24/23 wheelchair #1 ea 06/02/24 compressor, for nebulizer #1 ea 06/07/24 nebulizer accessories #1 ea 06/07/24 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,caramel candy maker helper,cont #1 ea 06/20/24 (Dexcom G7 Production Operator) sildenafil 50 mg tablet (Viagra) 50 mg PO DAILY PRN sexual activity 02/24/25 #10 tabs allopurinol 100 mg tablet 50 mg (1/2 x 100 mg) PO .EVERY 03/24/25 OTHER DAY #30 tabs diabetic shoes with inserts #1 ea 04/13/25 dapagliflozin propanediol 10 mg 10 mg PO DAILY #90 tabs 04/14/25 tablet (Farxiga) dulaglutide 1.5 mg/0.5 mL 1.5 mg (0.5 mL) SUBCUT .weekly #6 04/14/25 subcutaneous pen injector mL ([facility]) fenofibrate 160 mg tablet 160 mg PO DAILY #90 tabs 04/14/25 Diabetic Shoes 3 x insoles #1 ea 04/18/25 diabetic shoes with inserts #1 ea 05/17/25 apixaban 5 mg tablet (Eliquis) 2.5 mg (1/2 x 5 mg) PO BID #1 tab 07/02/25 aripiprazole 10 mg tablet 5 mg (1/2 x 10 mg) PO BID #60 tabs 07/02/25 ferrous sulfate 324 mg (65 mg 324 mg PO DAILY #90 tabs 07/02/25 iron) tablet,delayed release fludrocortisone 0.1 mg tablet 0.1 mg PO DAILY #30 tabs 07/02/25 furosemide 40 mg tablet 80 mg (2 x 40 mg) PO BID@08,16 #60 07/02/25 tabs multivitamin with folic acid 400 1 tab PO DAILY #90 tabs 07/02/25 mcg tablet (Thera) olanzapine 5 mg tablet 5 mg PO BEDTIME #30 tabs 07/02/25 polyethylene glycol 3350 17 gram 17 g PO DAILY #30 ea 07/02/25 oral powder packet potassium chloride 20 mEq 20 meq PO BID #60 tabs 07/02/25 tablet,extended release(part/cryst) (Klor-Con M) 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 sensor (Dexcom G7 #3 ea 07/04/25 Sensor device) levetiracetam 500 mg tablet 500 mg PO QDAY #30 tabs 07/04/25 tizanidine 4 mg tablet 4 mg PO .HS PRN Muscle Spasticity 07/04/25 #90 tabs DME: Walker #1 ea 07/06/25 Allergies Allergy/AdvReac Type Severity Reaction Status Date / Time fentanyl Allergy Unknown Verified 07/06/25 13:39 lisinopril AdvReac Mild Coughing Verified 07/06/25 13:39 [facility] ED PFSH: Medical History (Updated 07/06/25 @ 21:59 by Hui Romo MD) Sleep apnea in adult Dementia with behavioral disturbance Venous stasis dermatitis of both lower extremities Atrial fibrillation Rotator cuff arthropathy of right shoulder Osteoarthritis of shoulders, bilateral Bilateral shoulder pain Pulmonary HTN Nonischemic cardiomyopathy Mixed hyperlipidemia Nonrheumatic aortic (valve) stenosis HTN (hypertension) Severe obstructive sleep apnea Nocturnal hypoxemia [place] (obstructive sleep apnea) ARUNA (acute kidney injury) Bilateral foot pain Generalized weakness Acute encephalopathy Generalized muscle weakness Acute alteration in mental status Confusion Epistaxis Anticoagulation adequate with anticoagulant therapy Transaminitis Daytime sleepiness Enrolled in chronic care management Gout attack Acute and chronic respiratory failure with hypoxia Ascending aortic aneurysm Congestive heart failure Pneumonia Acute and chronic respiratory failure with hypoxia Erectile dysfunction Type 2 diabetes mellitus Chronic kidney disease Anemia Diarrhea Diabetic foot Idiopathic gout, right ankle and foot DDD (degenerative disc disease), lumbosacral Surgical History Hx of arthroscopy of left knee Hx of tooth extraction History of cardiac pacemaker Family History Mother CAD (coronary artery disease) Brother Cancer Other Diabetes mellitus, type 2 Hypertension Denies family history of Diabetes Clotting disorder Dementia Chronic kidney disease (CKD) Suicide Anesthesia complication Bleeding disorder Lung disease Stroke Social History Smoking and tobacco/nicotine status: former use of tobacco/nicotine Second hand smoke exposure: No Alcohol intake: current Alcohol intake frequency: 3 or more drinks per day Alcohol type: beer Substance/Drug Use: never Additional social history: 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 He is in the midst of a divorce from his Anisha to whom he has been 15 years but for now he is still reporting her as next of kin. He wants full CODE STATUS Reconfirmed full CODE STATUS desired on 06/19/2025. Patient denies drug use or tobacco use he drink 2-3 beers a day but stopped 90 days ago Adopted: No Caregiver/support person: Yes (spouse) Lives independently: Yes Household members: spouse and children Housing: House Marital status: Number of children: 3 Number of grandchildren: 3 Highest education level completed: 6th Grade service: No Current occupational status: disabled Pets and animals: Yes Current gender identity: Male Special pola needs: No Agree to transfusion: Yes Physical Exam Narrative: EXAM NARRATIVE: Vitals were reviewed. On initial exam, patient is obtunded, altered and unable to provide history. He is in acute respiratory distress; patient is tachypneic and hypoxic with SpO2 in the 70s. Patient was promptly intubated. Patient remains normotensive. He is not tachycardic. Patient appears to be moving all extremities. No rash noted. Procedures Intubation Time out performed: No (Emergent) sedative: Etomidate (30 mg) Mg Given: 30 paralytic: Rocuronium (130 mg) Mg Given: 130 Laryngoscope: fiber optic video scope ET Tube Size: 8 ET Tube Uncuffed: No Tube Secured Depth (cm): 22 Tube Secured Location: lips Tube Placement Confirmation: visualized tube passing through cords, equal breath sounds bilaterally and confirmation by capnometry Patient Tolerated Procedure: well Intubation Complications: none Course Vital Signs: Vital signs: Vital Signs Temperature 101.3 F H 07/06/25 18:29 Pulse Rate 76 07/06/25 21:35 Respiratory Rate 16 07/06/25 21:35 Blood Pressure 122/78 07/06/25 21:35 Pulse Oximetry 96 07/06/25 21:35 Oxygen Delivery Me thod Mechanical Ventil ation 07/06/25 20:32 Oxygen Flow Rate 4 07/06/25 18:29 Fraction of Inspir ed Oxygen 100 07/06/25 21:33 MDM - General Adult Medical Decision Making 62-year-old male with a complex medical history including CKD stage 3, DM, HTN, CHF, atrial fibrillation on eliquis, COPD, s/p aortic valve replacement w/bioprosthetic valve anemia, dementia presents in acute respiratory failure. Patient is also febrile on arrival. This is concerning for sepsis. Patient was given 500 cc of IV fluids but no more due to known severe systolic dysfunction and EF of 30% by recent echocardiogram. He was treated with broad-spectrum antibiotics. He was promptly intubated. Lab work demonstrates a normal white blood cell count but he has a fever, lactic acid of 4.9 which is concerning for sepsis due to unknown source at this time. Kidney function is worse today. Patient also has an elevated troponin but no STEMI per Sgarbossa criteria. This may be due to global hypoperfusion and NSTEMI, patient was started on a heparin drip. BNP is nearly 22,000. UA does not show evidence of infection. Patient is negative for flu and COVID. Due to unknown source of infection, patient was evaluate with CT PE, CT abdomen pelvis as risks are greatly outweighed by the benefit of diagnostic accuracy to guide further treatment. Patient was admitted to ICU. IHui, attest that I have personally provided at least 45 minutes of critical care time, not including procedures, evaluating, treating, monitoring of hemodynamic status, consulting with other physicians, this patient's acute respiratory failure, altered mental status, cardiac and renal dysfunction. Lab Data 07/06/25 19:08 07/06/25 19:08 Radiology Impressions Chest X-Ray 07/06/25 20:41 IMPRESSION: No radiographic evidence of acute intrathoracic abnormality. Laboratory Results WBC 9.55 10^3/uL (3.29-11.43) 07/06/25 19:08 RBC 3.01 10^6/uL (3.85-5.65) L 07/06/25 19:08 Hgb 8.60 g/dL (11.27-16.99) L 07/06/25 19:08 Hct 30.1 % (37-53) L 07/06/25 19:08 MCV 100.0 fl (82-101) 07/06/25 19:08 MCH 28.6 pg (27-33) 07/06/25 19:08 MCHC 28.6 g/dL (30-55) L 07/06/25 19:08 RDW 20.4 % (12.1-15.1) H 07/06/25 19:08 Plt Count 116 10^3/cmm (157-399) L 07/06/25 19:08 MPV 10.6 fL (7.4-10.4) H 07/06/25 19:08 Neut % (Auto) 87.4 % 07/06/25 19:08 Lymph % (Auto) 5.5 % 07/06/25 19:08 Mineral % (Auto) 6.4 % 07/06/25 19:08 Eos % (Auto) 0.1 % 07/06/25 19:08 Baso % (Auto) 0.2 % 07/06/25 19:08 Neut # (Auto) 8.34 10^3/uL (1.8-7.7) H 07/06/25 19:08 Lymph # (Auto) 0.5 10^3/uL (0.8-4.8) L 07/06/25 19:08 Mineral # (Auto) 0.6 10^3/uL (0.2-0.9) 07/06/25 19:08 Eos # (Auto) 0.0 10^3/uL (0.0-0.8) 07/06/25 19:08 Baso # (Auto) 0.0 10^3/uL (0.0-0.1) 07/06/25 19:08 Nucleated RBC % (auto) 0.8 % 07/06/25 19:08 Nucleated RBCs # 0.1 /100WBC 07/06/25 19:08 Specimen Type Arterial 07/06/25 19:23 Sample Site Radial, left 07/06/25 19:23 ABG pH 7.51 (7.35-7.45) H 07/06/25 19:23 ABG pCO2 27.0 mmHg (35-45) L 07/06/25 19:23 ABG pO2 99.5 mmHg (80.0-100.0) 07/06/25 19:23 ABG HCO3 21.6 mmol/L (22-26) L 07/06/25 19:23 ABG O2 Saturation 99.1 07/06/25 19:23 ABG Base Excess -0.7 mmol/L (-2.0-2.0) 07/06/25 19:23 Anthony Test Pos 07/06/25 19:23 A-a O2 Gradient 1.8 mmHg (5-10) L 07/06/25 19:23 Hematocrit 28.3 % (42-52) L 07/06/25 19:23 Hgb O2 Saturation 96.1 % (95-100) 07/06/25 19:23 Carboxyhemoglobin 2.1 %THgb (0.4-20.1) 07/06/25 19:23 Methemoglobin 0.9 % (0.4-1.5) 07/06/25 19:23 Total Hemoglobin 9.2 g/dL (14-18) L 07/06/25 19:23 Sodium 136.0 mmol/L (131-143) 07/06/25 19:23 Potassium 3.8 mmol/L (3.5-5.0) 07/06/25 19:23 Glucose 161.0 mg/dL (70-115) H 07/06/25 19:23 Ionized Calcium 1.1 mmol/L (1.1-1.4) 07/06/25 19:23 O2 Delivery Device Nc 07/06/25 19:23 O2 Liters/Min 5.0 % 07/06/25 19:23 Call Manager ID [email or web address] 07/06/25 19:23 Sodium 134 mmol/L (136-145) L 07/06/25 19:08 Potassium 3.8 mmol/L (3.5-5.1) 07/06/25 19:08 Chloride 92 mmol/L (98-107) L 07/06/25 19:08 Carbon Dioxide 22 mmol/L (22-29) 07/06/25 19:08 Anion Gap 23.8 (5-19) H 07/06/25 19:08 BUN 80 mg/dL (8-23) H 07/06/25 19:08 Creatinine 3.7 mg/dL (0.7-1.2) H 07/06/25 19:08 GFR Calculation 16.4 mL/min (90-130) L 07/06/25 19:08 Glucose 165 mg/dL (65-115) H 07/06/25 19:08 Calculated Osmolality 306 mOsm/kg (285-295) H 07/06/25 19:08 Lactic Acid 4.9 mmol/L (0.5-2.2) H* 07/06/25 19:08 Calcium 8.7 mg/dL (8.5-10.5) 07/06/25 19:08 Total Bilirubin 1.9 mg/dL (0.15-1.2) H 07/06/25 19:08 AST 42 U/L (0-40) H 07/06/25 19:08 ALT 12 U/L (0-41) 07/06/25 19:08 Alkaline Phosphatase 45 U/L (40-130) 07/06/25 19:08 Troponin T Baseline 242 ng/L (0-15) H* 07/06/25 19:08 NT-Pro-B Natriuret Pep 85571 pg/mL (0-125) H 07/06/25 19:08 Total Protein 7.8 g/dL (6.6-8.7) 07/06/25 19:08 Albumin 3.6 g/dL (3.5-5.2) 07/06/25 19:08 Globulin 4.2 g/dL (1.3-4.6) 07/06/25 19:08 Urine Color Dark yellow (Yellow) A 07/06/25 20: Urine Appearance Cloudy (CLEAR) A 07/06/25 20: Urine pH 5.0 (5-7) 07/06/25 20:41 Ur Specific [place] 1.016 (1.005-1.030) 07/06/25 20:41 Urine Protein 2+ (Negative) A 07/06/25 20: Urine Glucose (UA) Trace (Normal) H 07/06/25 20:41 Urine Ketones Negative (Negative) 07/06/25 20: Urine Blood Negative (Negative) 07/06/25 20: Urine Nitrate Negative (Negative) 07/06/25 20: Urine Bilirubin 1+ (Negative) H 07/06/25 20: Urine Urobilinogen 1.0 mg/dL (Negative) 07/06/25 20:41 Ur Leukocyte Esterase Trace (Negative) A 07/06/25 20:41 Urine RBC 6-10 /hpf (0-2) 07/06/25 20:41 Urine WBC 0-5 /hpf (0-5) 07/06/25 20:41 Ur Squamous Epith Cells 0-5 /hpf (0-5) 07/06/25 20:41 Amorphous Sediment Not Reportable 07/06/25 20:41 Urine Bacteria None seen /hpf (NONE) 07/06/25 20:41 Hyaline Casts 69.07 /lpf 07/06/25 20:41 Urine Mucus 2+ /hpf 07/06/25 20:41 Influenza A (PCR) Negative (Negative) 07/06/25 19:14 Influenza Type B (PCR) Negative (Negative) 07/06/25 19:14 RSV (PCR) Negative (Negative) 07/06/25 19:14 SARS-CoV-2 (PCR) Negative (Negative) 07/06/25 19:14 XR interpretation done by ED provider, pending radiology final review EKG Data EKG 1: Interpretation: Paced rhythm with a heart rate of 70, normal QT/QTc, wide QRS, no STEMI per Sgarbossa criteria. Computer generated interpretation: Chest X-Ray 07/06/25 20:41 IMPRESSION: No radiographic evidence of acute intrathoracic abnormality. Discharge Plan Discharge Patient Disposition: Admitted As Inpatient Clinical Impression: Sepsis, Non-ST elevation HI (NSTEMI), Acute hypoxemic respiratory failure, Heart failure Condition: Stable Coding Level of Care Code ED Stoner Out for Janelle Medina
[2025-07-06] MEDS: linezolid premix 600 MG/300 ML PREMIX 300 MG IV (19:52)
[2025-07-06 19:55] LABS: Alanine Aminotransferase 12 U/L (0-41); Albumin Level 3.6 g/dL (3.5-5.2); Alkaline Phosphatase 45 U/L (40-130); Anion Gap 23.8 (5-19); Aspartate Amino Transferase 42 U/L (0-40); Blood Urea Nitrogen 80 mg/dL (8-23); Calcium 8.7 mg/dL (8.5-10.5); Carbon Dioxide 22 mmol/L (22-29); Chloride 92 mmol/L (98-107); Globulin 4.2 g/dL (1.3-4.6); Glucose 165 mg/dL (65-115); NT Pro B Type Natriuretic Pept 21721 pg/mL (0-125); Osmolality Calculated 306 mOsm/kg (285-295); Potassium 3.8 mmol/L (3.5-5.1); Sodium 134 mmol/L (136-145); Total Protein 7.8 g/dL (6.6-8.7)
[2025-07-06 20:05] LABS: Respiratory Syncytial Virus Ce NEGATIVE (Negative); SARS-CoV-2 PCR NEGATIVE (Negative)
[2025-07-06] MEDS: etomidate 2 mg/mL INJ SDV 10 mL 30 MG IVP (20:11)
[2025-07-06] MEDS: rocuronium 10 mg/mL INJ 5mL 130 MG IVP (20:11)
[2025-07-06] MEDS: propofol 1,000 MG/100 ML INJ 3.31 MG IV (20:31)
--- NOTE | 2025-07-06 20:33 | ECG_ITS ---
[facility]25[facility]07[facility]06 Pat Name: Pawan Marcum Department: Room: Gender: Male [employer] Member: : 1955 Requested By: Meli Jules Order Number: [id number] Spence MD: BLACK HEARN Measurements Intervals [place] Rate: 72 P: 0 CO: 0 QRS: -63 QRSD: 201 T: 118 QT: 458 QTc: 503 Interpretive Statements ELECTRONIC VENTRICULAR PACEMAKER ABNORMAL RHYTHM ECG Compared to ECG 07/06/2025 18:39:38 No significant changes Electronically Signed On 07-08-2025 16:09:01 CUSTOMER SUPPLY COORDINATOR by BLACK HEARN [email or web address]
--- NOTE | 2025-07-06 20:35 | PC.NURSE ---
RSI NOTES: VERBAL ORDER GIVEN BY DR ESPINO FOR 130 ROCURONIUM AND 30 ETOMIDATE TO PERFORM RSI -130 SARA IVP @2010 -30 ETOMIDATE @2010 -PATIENT INTUBATED @2011 WITH SZ 8 ET TUBE, 23 AT THE LIP -VITALS @2014: 92 ON VENT, 70 HEART RATE, 131/84, 23 RESPIRATIONS
--- NOTE | 2025-07-06 20:41 | XRR_ITS ---
PROCEDURE INFORMATION: Exam: XR Chest Exam date and time: 07/06/2025 8:40 PM Age: 70 years old Clinical indication: Device placement; Other: Ett and og tube; Additional info: Tube placement verification TECHNIQUE: Imaging protocol: Radiologic exam of the chest. Views: 1 view. COMPARISON: CR (CHEST, ) 07/06/2025 6:36 PM FINDINGS: Tubes, catheters and devices: Anterior chest surgery with sternal wires. Left ICD with leads intact. Endotracheal tube with tip at the level of the clavicular heads. Yunier gastric tube with side hole and tip off image coursing into the left upper quadrant of the abdomen. Lungs: Unremarkable. No consolidation. Pleural spaces: Unremarkable. No pleural effusion. No pneumothorax. Heart/Mediastinum: Cardiomegaly. Vasculature: Aortic calcifications. Bones/joints: No acute findings. Other findings: No radiographic evidence of acute intrathoracic abnormality. XR/XR chest 1V portable [id number] IMPRESSION: No radiographic evidence of acute intrathoracic abnormality.
[2025-07-06 20:45] LABS: Glucose Urine UA Trace (Normal); Nitrate Urine Negative (Negative); Specific Gravity, Urine 1.016 (1.005-1.030)
[2025-07-06 21:09] LABS: UA Slide Review UA Slide Review Perf
--- NOTE | 2025-07-06 21:20 | CTR_ITS ---
PROCEDURE INFORMATION: Exam: CTA Chest With Contrast Exam date and time: 07/06/2025 11:53 PM Age: 70 years old Clinical indication: Fever; Shortness of breath; Additional info: Respiratory failure, sepsis TECHNIQUE: Imaging protocol: Computed tomographic angiography of the chest with contrast. Exam focused on the arteries. 3D rendering (Not supervised by radiologist): MIP and/or 3D reconstructed images were created by the technologist. Radiation optimization: All CT scans at this facility use at least one of these dose optimization techniques: automated exposure control; mA and/or kV adjustment per patient size (includes targeted exams where dose is matched to clinical indication); or iterative reconstruction. Contrast material: OMNI 350; Contrast volume: 100 ml; Contrast route: INTRAVENOUS (IV); COMPARISON: CT angio chest PE protcl [id number] 09/16/2022 11:43 PM RADIATION DOSE METRICS: Total DLP (mGy-cm): 1806.11 FINDINGS: Tubes, catheters and devices: Endotracheal tube terminates in the trachea. Pacemaker leads. Pulmonary arteries: No pulmonary embolism. Aorta: Unremarkable. No aortic aneurysm. No aortic dissection. Lungs: Dependent airspace consolidations, concerning for aspiration pneumonia. Pleural spaces: Unremarkable. No pneumothorax. No pleural effusion. Heart: Cardiomegaly. Lymph nodes: Unremarkable. No enlarged lymph nodes. Bones/joints: Unremarkable. No acute fracture. Soft tissues: Unremarkable. PROCEDURE INFORMATION: Exam: CT Abdomen And Pelvis With Contrast Exam date and time: 07/06/2025 11:53 PM Age: 70 years old Clinical indication: Fever; Shortness of breath; Additional info: Respiratory failure, sepsis TECHNIQUE: Imaging protocol: Computed tomography of the abdomen and pelvis with contrast. Radiation optimization: All CT scans at this facility use at least one of these dose optimization techniques: automated exposure control; mA and/or kV adjustment per patient size (includes targeted exams where dose is matched to clinical indication); or iterative reconstruction. Contrast material: OMNI 350; Contrast volume: 100 ml; Contrast route: INTRAVENOUS (IV); COMPARISON: [place] [id number] 02/23/2025 3:52 PM RADIATION DOSE METRICS: Total DLP (mGy-cm): 1806.11 FINDINGS: Tubes, catheters and devices: Feeding tube terminates in the stomach. Liver: Hepatic steatosis. Gallbladder and biliary ducts: Cholelithiasis. Pancreas: Normal. No ductal dilation. Spleen: Normal. No splenomegaly. Adrenal glands: Normal. No mass. Kidneys and ureters: Normal. No hydronephrosis. Stomach and bowel: Diverticulosis, without acute diverticulitis. No small bowel obstruction. No free air. Appendix: No evidence of appendicitis. Intraperitoneal space: See Stomach and bowel finding. Vasculature: Atherosclerotic changes of the aorta. Lymph nodes: Unremarkable. No enlarged lymph nodes. Urinary bladder: Salazar catheter terminates in a decompressed urinary bladder. Reproductive: Unremarkable as visualized. Bones/joints: Benign sclerotic bone lesion in the left proximal femur. Degenerative changes of the spine. Soft tissues: Unremarkable. CT/CT angio chest w abd pel w con IMPRESSION: 1. Endotracheal tube terminates in the trachea. 2. No pulmonary embolism. . 3. Dependent airspace consolidations, concerning for aspiration pneumonia. . IMPRESSION: 1. Hepatic steatosis. 2. Cholelithiasis. 3. Feeding tube terminates in the stomach. 4. Diverticulosis, without acute diverticulitis. No small bowel obstruction. No free air.
[2025-07-06 21:55] LABS: Procalcitonin 0.42 ng/mL (0-0.5)
[2025-07-06 22:06] LABS: ABG PCO2 40.4 mmHg (35-45); ABG PH Result 7.41 (7.35-7.45); Alveolar-Arterial Oxygen Gradi 36.7 mmHg (5-10); Arterial Blood Gas Hematocrit 27.5 % (42-52); Blood Gas Sample Site Brachial, right; Blood Gas Sample Type Arterial; Blood Gas Tidal Volume 0.50; Carboxyhemoglobin 1.9 %THgb (0.4-20.1); Glucose Level-ABG 160.0 mg/dL (70-115); HCO3 ABG 25.8 mmol/L (22-26); Ionized Calcium Level - ABG 1.1 mmol/L (1.1-1.4); Methemoglobin 1.0 % (0.4-1.5); Oxygen Saturation ABG > 99.1; PEEP 10.0 cmH20; PO2 ABG 367.0 mmHg (80.0-100.0); PO2 FiO2 Ratio Arterial Blood 367; Potassium Level - ABG 3.5 mmol/L (3.5-5.0); Sodium Level - ABG 137.0 mmol/L (131-143)
--- NOTE | 2025-07-06 22:35 | PM.HP ---
Providers/Chief Complaint Admitting Physician: Poncho Bahena MD Primary Care Provider: BELLA Bahena Chief Complaint: breathing trouble History of Present Illness As per the previous notes and the patient/family: Pawan Marcum is a 70 year old male pmhx of CKD stage 3, DM, HTN, CHF, atrial fibrillation on eliquis, COPD, s/p aortic valve replacement w/bioprosthetic valve anemia, dementia w/cc of shortness of breath. as per the retrospect notes since the patient is intubated and no one from the family is around to provide collateral history.Intermittent as per the ER physician during the shift change the patient was in acute respiratory distress. And he was obtunded unable to provide history therefore patient was promptly intubated. As per the notes the family only reported increased short of breath from the last few days. Patient was also in the ER seen yesterday but did not prefer to stay or admitted therefore was discharged. However he did not get relieved and came back with shortness of breath. As per the previous notes patient also lives alone. Consider manager case management on board to address any social concerns Review of Systems General: Reports: ROS unobtainable due to endotracheal tube Medications/Allergies Home Medications ?Medication ?Instructions ?Recorded ?Confirmed ?Last Taken ?Type Blood pressure cuff and machine #1 ea 06/27/22 07/05/25 08/12/22 Rx o2 at 3L per nasal cannula #1 ea 08/11/22 07/05/25 08/12/22 Rx nitroglycerin 0.3 mg sublingual 0.3 mg sublingual Q5M PRN chest 10/08/22 07/05/25 Unknown Rx tablet pain #30 tabs Diabetic shoes with inserts #1 ea 04/24/23 07/05/25 Unknown Rx wheelchair #1 ea 06/02/24 07/05/25 Unknown Rx compressor, for nebulizer #1 ea 06/07/24 07/05/25 Unknown Rx nebulizer accessories #1 ea 06/07/24 07/05/25 Unknown 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,handbag designer,cont #1 ea 06/20/24 07/05/25 Unknown Rx ([employer]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) tamsulosin 0.4 mg capsule 0.4 mg PO BEDTIME 02/23/25 07/05/25 06/07/25 History sildenafil 50 mg tablet (Viagra) 50 mg PO DAILY PRN sexual activity 02/24/25 07/05/25 03/30/25 Rx #10 tabs allopurinol 100 mg tablet 50 mg (1/2 x 100 mg) PO .EVERY 03/24/25 07/05/25 07/04/25 Rx OTHER DAY #30 tabs diabetic shoes with inserts #1 ea 04/13/25 07/05/25 Unknown Rx dapagliflozin propanediol 10 mg 10 mg PO DAILY #90 tabs 04/14/25 07/05/25 07/05/25 Rx tablet (Farxiga) dulaglutide 1.5 mg/0.5 mL 1.5 mg (0.5 mL) SUBCUT .weekly #6 04/14/25 07/05/25 07/04/25 Rx subcutaneous pen injector mL [facility] fenofibrate 160 mg tablet 160 mg PO DAILY #90 tabs 04/14/25 07/05/25 06/08/25 Rx Diabetic Shoes 3 x insoles #1 ea 04/18/25 07/05/25 Unknown Rx diabetic shoes with inserts #1 ea 05/17/25 07/05/25 Unknown Rx atorvastatin 40 mg tablet 40 mg PO QPM 06/08/25 07/05/25 06/07/25 History apixaban 5 mg tablet (Eliquis) 2.5 mg (1/2 x 5 mg) PO BID #1 tab 07/02/25 07/05/25 06/08/25 Rx aripiprazole 10 mg tablet 5 mg (1/2 x 10 mg) PO BID #60 tabs 07/02/25 07/05/25 07/04/25 Rx ferrous sulfate 324 mg (65 mg 324 mg PO DAILY #90 tabs 07/02/25 07/05/25 07/05/25 Rx iron) tablet,delayed release fludrocortisone 0.1 mg tablet 0.1 mg PO DAILY #30 tabs 07/02/25 07/05/25 07/05/25 Rx furosemide 40 mg tablet 80 mg (2 x 40 mg) PO BID@08,16 #60 07/02/25 07/05/25 07/05/25 Rx tabs multivitamin with folic acid 400 1 tab PO DAILY #90 tabs 07/02/25 07/05/25 07/05/25 Rx mcg tablet (Thera) olanzapine 5 mg tablet 5 mg PO BEDTIME #30 tabs 07/02/25 07/05/25 07/04/25 Rx polyethylene glycol 3350 17 gram 17 g PO DAILY #30 ea 07/02/25 07/05/25 07/05/25 Rx oral powder packet potassium chloride 20 mEq 20 meq PO BID #60 tabs 07/02/25 07/05/25 07/05/25 Rx tablet,extended release(part/cryst) (Klor-Con M) 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 sensor (Dexcom G7 #3 ea 07/04/25 07/05/25 Unknown Rx Sensor device) levetiracetam 500 mg tablet 500 mg PO QDAY #30 tabs 07/04/25 07/05/25 07/05/25 Rx tizanidine 4 mg tablet 4 mg PO .HS PRN Muscle Spasticity 07/04/25 07/05/25 Unknown Rx #90 tabs aspirin 81 mg tablet,delayed 81 mg PO DAILY 07/05/25 07/05/25 07/05/25 History release docusate sodium 250 mg capsule 250 mg PO BID 07/05/25 07/05/25 07/05/25 History metolazone 2.5 mg tablet 2.5 mg PO DAILY 07/05/25 07/05/25 07/05/25 History midodrine 10 mg tablet 10 mg PO TID 07/05/25 07/05/25 07/05/25 History DME: Walker #1 ea 07/06/25 07/06/25 Unknown Rx Allergies Allergy/AdvReac Type Severity Reaction Status Date / Time fentanyl Allergy Unknown Verified 07/06/25 13:39 lisinopril AdvReac Mild Coughing Verified 07/06/25 13:39 PFSH Acute PFSH: Medical History (Updated 07/06/25 @ 22:48 by Poncho Bahena MD) Sleep apnea in adult Dementia with behavioral disturbance Venous stasis dermatitis of both lower extremities Atrial fibrillation Rotator cuff arthropathy of right shoulder Osteoarthritis of shoulders, bilateral Bilateral shoulder pain Pulmonary HTN Nonischemic cardiomyopathy Mixed hyperlipidemia Nonrheumatic aortic (valve) stenosis HTN (hypertension) Severe obstructive sleep apnea Nocturnal hypoxemia [place] (obstructive sleep apnea) ARUNA (acute kidney injury) Bilateral foot pain Generalized weakness Acute encephalopathy Generalized muscle weakness Acute alteration in mental status Confusion Epistaxis Anticoagulation adequate with anticoagulant therapy Transaminitis Daytime sleepiness Enrolled in chronic care management Gout attack Acute and chronic respiratory failure with hypoxia Ascending aortic aneurysm Congestive heart failure Pneumonia Acute and chronic respiratory failure with hypoxia Erectile dysfunction Type 2 diabetes mellitus Chronic kidney disease Anemia Diarrhea Diabetic foot Idiopathic gout, right ankle and foot DDD (degenerative disc disease), lumbosacral Surgical History Hx of arthroscopy of left knee Hx of tooth extraction History of cardiac pacemaker Family History Mother CAD (coronary artery disease) Brother Cancer Other Diabetes mellitus, type 2 Hypertension Denies family history of Diabetes Clotting disorder Dementia Chronic kidney disease (CKD) Suicide Anesthesia complication Bleeding disorder Lung disease Stroke Social History Smoking and tobacco/nicotine status: former use of tobacco/nicotine Second hand smoke exposure: No Alcohol intake: current Alcohol intake frequency: 3 or more drinks per day Alcohol type: beer Substance/Drug Use: never Additional social history: He worked at a [employer], [employer] and [employer] and 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 He is in the midst of a divorce from his Anisha to whom he has been 15 years but for now he is still reporting her as next of kin. He wants full CODE STATUS Reconfirmed full CODE STATUS desired on 06/19/2025. Patient denies drug use or tobacco use he drink 2-3 beers a day but stopped 90 days ago Adopted: No Caregiver/support person: Yes (spouse) Lives independently: Yes Household members: spouse and children Housing: House Marital status: Number of children: 3 Number of grandchildren: 3 Highest education level completed: 6th Grade service: No Current occupational status: disabled Pets and animals: Yes Current gender identity: Male Special pola needs: No Agree to transfusion: Yes Vitals/I&O/Wt Last Vital Signs Temp 101.3 F H 07/06/25 18:29 Pulse 70 07/06/25 22:15 Resp 19 H 07/06/25 22:15 BP 157/98 07/06/25 22:15 Pulse Ox 97 07/06/25 22:15 O2 Del Method Mechanical Ventilation 07/06/25 20:32 O2 Flow Rate 4 07/06/25 18:29 FiO2 100 07/06/25 21:33 07/06/25 07/06/25 07/06/25 06:59 14:59 22:59 Intake Total 800.827 / 800.827 Balance 800.827 / 800.827 Weight last 48 hrs Weight 110.223 kg Physical Exam Narrative: General: Patient on mechanical ventilation and sedation with propofol, MAP around 65, to change propofol to midazolam since patient is allergic to fentanyl. HEENT: Grossly unremarkable exam Resp system: Bilateral equal air entry through mechanical ventilation however there are conducting sounds therefore unable to comment on wheezing or stridor, grossly unremarkable exam CVS: S1-S2 normal without any murmurs appreciated grossly. Patient looks euvolemic Neuro: Patient on sedation therefore unable to assess properly neurological status Extremities: Mild trace edema with wounds, healing and without any active pus or discharge at the shins appreciated. Skin: Having some possible wounds on the shins due to venous stasis or venous ulcers secondary to venous insufficiency? Urinary Catheter Management: Salazar: Cath Placed During This Visit: yes Urinary Catheter Date of Insertion: 07/06/25 Urinary Catheter Time of Insertion: 20:15 Data 07/06/25 19:08 07/06/25 19:08 A&P Assessment and plan 1. Acute hypoxemic respiratory failure: likely atypical pneumonia vs cardiogenic, since pro BNP was around 21k could be sepsis from pneumonia Follow with the sepsis protocol, however patient having normotensive and in the light of reduced ejection fraction of 30% to 35% on basis of echo done on 06/30/2025, to avoid aggressive fluid resuscitation Follow with the cultures and MRSA Start antibiotics with broad-spectrum coverage with Zosyn and Vanco and to be adjusted as per pharmacist guided dosing for renal parameters Vent management with respiratory therapist on board Maintain MAP above 65 Blood gas in the morning 2. Acute on chronic systolic (congestive) heart failure: Patient having history of congestive heart failure with EF of 30% proBNP around 21,000 Low-dose Lasix 60 mg IV daily with midodrine to start in order to guide and support with the MAP Telemetry monitoring Troponin trend Serial EKGs Intake and output monitoring Echo and TSH Maintain MAP above 65 for adequate perfusion Avoid aggressive resuscitation 3. Sepsis: Sepsis management protocol, however patient normotensive and having heart failure with reduced ejection fraction therefore to avoid aggressive fluid resuscitation Lactate series to follow Broad-spectrum antibiotics after cultures and MRSA to follow Vent management with respiratory therapist Sedation and midazolam and avoid propofol due to soft blood pressure Daily spontaneous awakening and breathing trials Keep MAP above 65 Intake and output monitoring 4. Non-ST elevation MA (NSTEMI): Considering patient duration renal parameters however having increased troponins, to trend troponins To start heparin infusion without bolus and 12 units/kg with weight-based protocol Monitor APTT Serial EKGs and telemetry monitoring Echo TSH Consider cardiology on board to be taken in the morning 5. Acute kidney injury superimposed on chronic kidney disease: Could be related to sepsis versus prerenal versus congestive kidney secondary to congestive heart failure? Management of sepsis as mentioned above with renal parameters monitoring Intake and output with urinary cath Adequate diuresis to be continued 6. Persistent atrial fibrillation: Currently heart rate is controlled, continue to monitor Home medications were reviewed and did not find any beta-antwan or calcium channel antwan To confirm and reconcile accordingly Telemetry monitoring and hemodynamic monitoring 7. S/P aortic valve replacement with bioprosthetic valve: Currently stable Echo to follow 8. Venous stasis dermatitis of both lower extremities: Compression stockings and leg elevation 9. Diabetes mellitus with diabetic neuropathy: Insulin sliding scale 10. Hx of seizure disorder: Home medication reviewed and reconciled, patient on Keppra 500 daily and to initiate 11. Pulmonary HTN: Follow echo Avoid aggressive fluid resuscitation 12. Mixed hyperlipidemia: Patient on fenofibrate and statin To resume after reconciliation 13. Pulmonary embolism: Patient comorbidities include history of pulmonary embolism, and has been on apixaban 2.5 mg twice daily Based on current situation patient is on heparin for possible NSTEMI? Continue to monitor hemodynamics 14. Presence of permanent cardiac pacemaker: Stable no concerns 15. DDD (degenerative disc disease), lumbosacral: Adequate analgesia to be provided s/p mechanical intubation PDMP PDMP Reviewed: Not Reviewed Attestations Medical Necessity Statement*: patient will stay more than 2 midnights for the management of acute hypxemic resp distress underlying pneumonia and to rule out ACS? high trop but with renal impairment? Time Spent in Patient Care: Greater than 35 minutes (>than 50% of time spent in counselling and/or direct pt care on unit). Critical Care Time: The high probability of a clinically significant, sudden or life threatening deterioration, as referenced in this documentation, required my full and direct attention, intervention and personal management. The critical care time shown is in addition to time spent performing any reported separately billable procedures and includes the following: [x] Data and vital sign review and interpretation [x] Patient assessment, examination and intervention [x] Medication orders and management [x] Patient/Family updates as able [x] Care Coordination and Documentation. Critical Care Time (min): 40 Other Attestations: I was unable to discuss patient current critical condition since the patient family or next of kin or guardian is not available around to discuss. The care has been delivered in the best interest of the patient based on the patient current CODE STATUS. I have reviewed all the images/labs/investigations independently. Management as per internal based on the recommendation and guidelines and patient's current clinical condition. Coding Level of Care Code Critical Care >/= 30 minutes Diagnoses Acute hypoxemic respiratory failure J96.01 Acute on chronic systolic (congestive) heart failure I50.23 Sepsis A41.9 Non-ST elevation MA (NSTEMI) I21.4 Acute kidney injury superimposed on chronic kidney disease N17.9; N18.9 Persistent atrial fibrillation I48.19 S/P aortic valve replacement with bioprosthetic valve Z95.3 Venous stasis dermatitis of both lower extremities I87.2 Diabetes mellitus with diabetic neuropathy E11.40 Hx of seizure disorder Z86.69 Pulmonary HTN I27.20 Mixed hyperlipidemia E78.2 Pulmonary embolism I26.99 Presence of permanent cardiac pacemaker Z95.0 DDD (degenerative disc disease), lumbosacral M51.379
[2025-07-06] MEDS: heparin drip 25,000 UNIT/500 ML PREMIX 26.45 UNIT IV (22:40)
[2025-07-06 22:43] LABS: Troponin 5 2HR 281.4 ng/L (0-15); Troponin 5 2HR Delta 39.4 ABS# (0-10)
[2025-07-06 23:30] LABS: Thyroid Stimulating Hormone 3.10 uIU/mL (0.27-4.20)
[2025-07-06 23:53] LABS: Reflex Lactate Order REFLEX LACTIC ORDERD
[2025-07-07] VITALS (101 sets, daily range): BP systolic 78–121; BP diastolic 53–85; PULSE 65–127; RESP 14–21; TEMP 36.2–37.1; O2SAT 86–100
[2025-07-07] MEDS: iohexol 350 mg/mL 500 mL Btl (per mL) IV (00:10)
[2025-07-07 00:16] LABS: Lactic Acid level (Lactate) 1.9 mmol/L (0.5-2.2)
--- NOTE | 2025-07-07 00:33 | ECG_ITS ---
[email or web address]: 2025-[facility]07 Pat Name: Pawan Marcum Department: Room: ICU03 Gender: Male Rod Cup Filler: : 1955 Requested By: Meli Jules Order Number: [id number] Bebe MD: BLACK HEARN Measurements Intervals [place] Rate: 70 P: 0 [place]: 0 QRS: -63 QRSD: 206 T: 118 QT: 502 QTc: 543 Interpretive Statements ELECTRONIC VENTRICULAR PACEMAKER ABNORMAL RHYTHM ECG Compared to ECG 07/06/2025 20:44:47 No significant changes Electronically Signed On 07-08-2025 16:08:13 CONDUIT REAMER OPERATOR by BLACK HEARN [email or web address]
[2025-07-07] MEDS: FUROsemide 10 mg/mL SDV 10mL 60 MG IVP (00:41)
[2025-07-07] MEDS: piperacillin-tazobactam 2.25 GM in sodium chloride 0.9% (plus) 50 ML IV (00:43)
[2025-07-07] MEDS: midazolam hcl 100 MG/100 ML BAG IV (01:18)
--- NOTE | 2025-07-07 01:33 | USCV_ITS ---
Pawan Marcum Age: 70 Gender: M : 1955 Exam Date: 07/07/2025 04:18 Ordering Phys: Poncho Bahena MD Technologist: CHANDRA [place] [facility] [place]: acute resp failure, Pt is on ventilator in ICU-3. Hx of BIOAVR, date unknown, dementia, Afib, anemia, pacemaker date unknown BP: 157 / 98 HR: 67 Rhythm: Paced rhythm with Atrial fibrillation Technical Quality: Adequate MEASUREMENTS (Male / Female) Normal Values 2D ECHO LV Diastolic Diameter PLAX 5.0 cm 4.2 - 5.9 / 3.9 - 5.3 cm IVS Diastolic Thickness 2.8 cm 0.6 - 1.0 / 0.6 - 0.9 cm IVS Systolic Thickness 2.7 cm LVPW Diastolic Thickness 1.8 cm 0.6 - 1.0 / 0.6 - 0.9 cm LVPW Systolic Thickness 2.0 cm LVOT Diameter 2.2 cm LV Ejection Fraction 2D Teich 24.7 % LV Ejection Fraction MOD 4C 35.7 % LV Ejection Fraction MOD 2C 17.0 % LV Ejection Fraction 2C AL 19.5 % LA Diameter 5.2 cm Aorta at Sinotubular Diameter 5.1 cm IVC Diameter 2.5 cm M-MODE LA Ao Ratio MM 1.2 AV Cusp Separation MM 0.9 cm DOPPLER AV Peak Velocity 331.0 cm/s LVOT Peak Velocity 74.0 cm/s AV Area Cont Eq vti 0.9 cm squared AV Area Cont Eq pk 0.8 cm squared MV Peak Velocity 124.0 cm/s MV Area PHT 4.8 cm squared Mitral E to A Ratio 0.0 TV Peak Velocity 264.0 cm/s TR Peak Velocity 306.0 cm/s TR Peak Gradient 37.5 mmHg TV Peak E Velocity 49.0 cm/s PV Peak Velocity 68.0 cm/s FINDINGS Left Ventricle Mildly dilated left ventricle. Severe diffuse hypokinesia of the septum and anteroseptal segments with slightly dyskinetic apex. LV ejection fraction around 35%.Grade III/IV diastolic dysfunction (restrictive filling pattern), severely elevated filling pressures. Right Ventricle Catheter/pacemaker wire in the right ventricular cavity. Normal RV size with the slightly diminished ejection fraction Right Atrium Severely increased right atrial size. Catheter/pacemaker wire in the right atrial cavity. Left Atrium Severely increased left atrial size. IA Septum Appears to be intact Mitral Valve Thickened mitral valve. Moderate mitral annular calcification.moderate mitral valve regurgitation. Aortic Valve The bioprosthetic valve at the aortic position appears to be thickened with some calcification.trace to mild aortic valve regurgitation. Severe low gradient aortic valve stenosis, mean gradient 20.7 mmHg, DESIRE 0.89 cm squared. Tricuspid Valve Mild tricuspid valve regurgitation. Pulmonic Valve Trace pulmonary valve regurgitation. Pericardium No pericardial effusion. Aorta Normal aortic annulus size. IVC Normal IVC dimension with <50% respiratory change of the inferior vena cava. CONCLUSIONS Mildly dilated left ventricle. Severe diffuse hypokinesia of the septum and anteroseptal segments with slightly dyskinetic apex. LV ejection fraction around 35%.Grade III/IV diastolic dysfunction (restrictive filling pattern), severely elevated filling pressures. Normal RV size with the slightly diminished ejection fraction Severely increased right atrial size. Catheter/pacemaker wire in the right atrial cavity. Severely increased left atrial size. Catheter/pacemaker wire in the right ventricular cavity. Thickened mitral valve. Moderate mitral annular calcification. At least moderate mitral regurgitation The bioprosthetic valve at the aortic position appears to be thickened with some calcification.trace to mild aortic valve regurgitation. Severe low gradient aortic valve stenosis, mean gradient 20.7 mmHg, DESIRE 0.89 cm squared. Mild tricuspid valve regurgitation. Estimated pulmonary artery peak systolic pressure 48 mmHg There is no pericardial effusion. Compared to the study from 06/24/2025, the aortic valve stenosis appears to be less severe Revised copy of the test result from 07/07/2025 Dr Honorio Scott MD [facility] (Electronically Signed) Final Date: 07 July 2025 13:52 Amended: 07 July 2025 13:56 C
[2025-07-07 02:14] LABS: Troponin 5 6HR 285.9 ng/L (0-15); Troponin 5 6HR Delta 43.9 ng/L (0-12)
[2025-07-07 04:00] LABS: MRSA PCR OZH (swab) NOT DETECTED (Negative)
[2025-07-07 04:38] LABS: Coronavirus 229E,HKU1,NL63,OC4 Not Detected (NOT DETECT); Parainfluenza Virus Type 1 Not Detected (NOT DETECT); Parainfluenza Virus Type 2 Not Detected (NOT DETECT); Parainfluenza Virus Type 3 Not Detected (NOT DETECT); Parainfluenza Virus Type 4 Not Detected (NOT DETECT); SARS-COV-2 Not Detected (NOT DETECT)
[2025-07-07 05:25] LABS: Partial Thromboplastin Time 76.5 SECONDS (23.9-36.7)
[2025-07-07 05:41] LABS: ABG PCO2 41.6 mmHg (35-45); ABG PH Result 7.43 (7.35-7.45); Alveolar-Arterial Oxygen Gradi 16.3 mmHg (5-10); Arterial Blood Gas Hematocrit 27.9 % (42-52); Blood Gas Operator Identificat JDB; Blood Gas Sample Site Brachial, right; Blood Gas Sample Type Arterial; Blood Gas Tidal Volume 0.50; Carboxyhemoglobin 2.0 %THgb (0.4-20.1); Glucose Level-ABG 112.0 mg/dL (70-115); HCO3 ABG 27.7 mmol/L (22-26); Ionized Calcium Level - ABG 1.1 mmol/L (1.1-1.4); Methemoglobin 1.0 % (0.4-1.5); Oxygen Saturation ABG 99.0; PEEP 10.0 cmH20; PO2 ABG 105.0 mmHg (80.0-100.0); PO2 FiO2 Ratio Arterial Blood 262; Potassium Level - ABG 2.9 mmol/L (3.5-5.0); Sodium Level - ABG 137.0 mmol/L (131-143)
[2025-07-07] MEDS: pantoprazole 40 mg SDV IVP ×2 (06:16→18:24)
--- NOTE | 2025-07-07 06:53 | PC.NURSE ---
0530 dose of zosyn not given per pharmacy is going to adjust the dose.
--- NOTE | 2025-07-07 08:46 | PC.PHAR ---
Last med rec completed with notes 07/05/25. Spoke with family and [facility] about several medications: [phone] has this discontinued Atorvastatin 40mg, Eliquis 5mg, Fenofibrate 160mg, and Tamsulosin 0.4mg all have last fill date of 03/21/25. [facility] states these are all active medications with refills. Family is aware. Attempted to reach out to Lora Buchanan MARKETING PROPOSAL SPECIALIST to ask if pt should still be taking and have not heard back yet.
--- NOTE | 2025-07-07 09:06 | PC.NUTR ---
NPO status and consult for TF recommendations received. Recommend Glucerna 1.5 beginning @ 15mls/hr, increasing 15mls/hr Q4-8H as tolerated until goal rate of 45mls/hr, with FWF 120mls Q4H or per MD discretion. Glucerna 1.5 @ 45mls/hr will provide 1620 kcals or 72% Pt's estimated calorie needs, 90 grams protein or 100% Pt's estimated protein needs, and 886+720FWF or 72% Pt's estimated fluid needs.
[2025-07-07 09:16] LABS: Hematocrit 26.7 % (37-53); Hemoglobin 7.60 g/dL (11.27-16.99); Mean Corpuscular HGB Conc 28.5 g/dL (30-55); Mean Corpuscular Hemoglobin 28.8 pg (27-33); Mean Corpuscular Volume 101.1 fl (82-101); Nucleated Red Blood Cells % 0.7 %; Platelet Count 102 10^3/cmm (157-399); Red Blood Count 2.64 10^6/uL (3.85-5.65); White Blood Count 6.94 10^3/uL (3.29-11.43)
[2025-07-07] MEDS: piperacillin-tazobactam 3.375 GM in sodium chloride 0.9% (plus) 50 ML IV ×2 (09:35→19:36)
[2025-07-07 09:43] LABS: NT Pro B Type Natriuretic Pept 25066 pg/mL (0-125); Procalcitonin 0.64 ng/mL (0-0.5)
--- NOTE | 2025-07-07 09:50 | PM.CONSULT ---
Providers/Reason For Consult Consulting Physician/Specialty*: ISATU Scott MD/cardiology Reason for Consult*: Patient with congestive heart failure/aortic valve replacement/cardiomyopathy Requesting Physician: Dr. Matthews Attending Physician: Josias Matthews MD Primary Care Provider: BELLA Bahena History of Present Illness History of Present Illness Pawan Marcum is a 70 year old male with history of aortic valve disease, status post AVR, nonischemic cardiomyopathy, recurrent decompensated heart failure, is admitted to the hospital through the emergency room where he presented with progressive shortness of breath/respiratory distress. He was found to be hypoxic with some altered mental status. He got intubated and is admitted to the hospital for further evaluation and management. This patient had multiple hospital admissions/ER visits in the recent past mainly with decompensated heart failure. He also has been having l lower extremity edema with ulcers, venous stasis with cellulitis, anemia requiring blood transfusion, acute on chronic kidney disease, multiple electrolyte imbalance and multiple other problems. He was found to have features of severe prosthetic valve stenosis. Subsequent JONATHAN revealed only moderate prosthetic aortic valve stenosis. The echocardiogram also revealed pulmonary hypertension with moderate mitral regurgitation. The LV ejection fraction was around 30%. He was on Entresto in the past and because of worsening kidney function, it was taken off. He denies any chest pain or chest tightness. He is being followed by the wound care clinic for the leg ulcers/cellulitis. No fever or chills. No other specific complaints. Review of Systems Narrative: CONSTITUTIONAL: No fever or chills. EYES: No blurring of vision or other visual disturbances lately. ENT: No hoarseness of voice, auditory disturbances or sore throat. CARDIOVASCULAR: As mentioned above. RESPIRATORY: No significant cough. GASTROINTESTINAL: No hematemesis or melena. GENITOURINARY: No dysuria or hematuria. INTEGUMENTARY: No skin rashes or history of skin cancer. NEURO: No transient ischemic attacks or amaurosis. PSYCHIATRIC: No history of psychosis or major depression. HEMATOLOGIC: Patient had 2 units of blood transfusion during the last hospital admission. The etiology of the anemia is not clear ENDOCRINE: No history of polyuria or polydipsia. MUSCULOSKELETAL: No recent joint pain or swelling. ALLERGY/IMMUNOLOGY: As mentioned above. Medications/Allergies Home Medications ?Medication ?Instructions ?Recorded ?Confirmed ?Last Taken ?Type Blood pressure cuff and machine #1 ea 10/28/22 11/07/25 12/13/22 Rx o2 at 3L per nasal cannula #1 ea 08/11/22 07/07/25 08/12/22 Rx nitroglycerin 0.3 mg sublingual 0.3 mg sublingual Q5M PRN chest 10/08/22 07/07/25 Unknown Rx tablet pain #30 tabs Diabetic shoes with inserts #1 ea 04/24/23 07/07/25 Unknown Rx wheelchair #1 ea 06/02/24 07/07/25 Unknown Rx compressor, for nebulizer #1 ea 06/07/24 07/07/25 Unknown Rx nebulizer accessories #1 ea 06/07/24 07/07/25 Unknown 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,air conditioning unit tester,cont #1 ea 06/20/24 07/07/25 Unknown Rx (Dexcom G7 Clinical Rn Liaison) tamsulosin 0.4 mg capsule 0.4 mg PO BEDTIME 02/23/25 07/07/25 06/07/25 History sildenafil 50 mg tablet (Viagra) 50 mg PO DAILY PRN sexual activity 02/24/25 07/07/25 03/30/25 Rx #10 tabs allopurinol 100 mg tablet 50 mg (1/2 x 100 mg) PO .EVERY 03/24/25 07/07/25 07/06/25 Rx OTHER DAY #30 tabs diabetic shoes with inserts #1 ea 04/13/25 07/07/25 Unknown Rx dapagliflozin propanediol 10 mg 10 mg PO DAILY #90 tabs 04/14/25 07/07/25 07/06/25 Rx tablet (Farxiga) dulaglutide 1.5 mg/0.5 mL 1.5 mg (0.5 mL) SUBCUT .weekly #6 04/14/25 07/07/25 07/04/25 Rx subcutaneous [facility] fenofibrate 160 mg tablet 160 mg PO DAILY #90 tabs 04/14/25 07/07/25 06/08/25 Rx Diabetic Shoes 3 x insoles #1 ea 04/18/25 07/07/25 Unknown Rx diabetic shoes with inserts #1 ea 05/17/25 07/07/25 Unknown Rx atorvastatin 40 mg tablet 40 mg PO QPM 06/08/25 07/07/25 06/07/25 History apixaban 5 mg tablet (Eliquis) 2.5 mg (1/2 x 5 mg) PO BID #1 tab 07/02/25 07/07/25 06/08/25 Rx aripiprazole 10 mg tablet 5 mg (1/2 x 10 mg) PO BID #60 tabs 07/02/25 07/07/25 07/06/25 Rx ferrous sulfate 324 mg (65 mg 324 mg PO DAILY #90 tabs 07/02/25 07/07/25 07/06/25 Rx iron) tablet,delayed release fludrocortisone 0.1 mg tablet 0.1 mg PO DAILY #30 tabs 07/02/25 07/07/25 07/06/25 Rx furosemide 40 mg tablet 80 mg (2 x 40 mg) PO BID@08,16 #60 07/02/25 07/07/25 07/06/25 Rx tabs multivitamin with folic acid 400 1 tab PO DAILY #90 tabs 07/02/25 07/07/25 07/06/25 Rx mcg tablet (Thera) olanzapine 5 mg tablet 5 mg PO BEDTIME #30 tabs 07/02/25 07/07/25 07/05/25 Rx polyethylene glycol 3350 17 gram 17 g PO DAILY #30 ea 07/02/25 07/07/25 07/06/25 Rx oral powder packet potassium chloride 20 mEq 20 meq PO BID #60 tabs 07/02/25 07/07/25 07/06/25 Rx tablet,extended release(part/cryst) (Klor-Con M) 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 sensor (Dexcom G7 #3 ea 07/04/25 07/07/25 Unknown Rx Sensor device) levetiracetam 500 mg tablet 500 mg PO QDAY #30 tabs 07/04/25 07/07/25 07/06/25 Rx tizanidine 4 mg tablet 4 mg PO .HS PRN Muscle Spasticity 07/04/25 07/07/25 Unknown Rx #90 tabs aspirin 81 mg tablet,delayed 81 mg PO DAILY 07/05/25 07/07/25 07/06/25 History release docusate sodium 250 mg capsule 250 mg PO BID 07/05/25 07/07/25 07/06/25 History metolazone 2.5 mg tablet 2.5 mg PO DAILY 07/05/25 07/07/25 07/06/25 History midodrine 10 mg tablet 10 mg PO TID 07/05/25 07/07/25 07/06/25 History DME: Festus #1 ea 07/06/25 07/07/25 Unknown Rx Allergies Allergy/AdvReac Type Severity Reaction Status Date / Time fentanyl Allergy Unknown Verified 07/06/25 13:39 lisinopril AdvReac Mild Coughing Verified 07/06/25 13:39 Current Medications Generic Name Dose Route Start Last Admin Trade Name Maisha PRN Reason Stop Dose Admin Aspirin 81 mg 07/07/25 06:00 07/07/25 06:17 Aspirin 81 Mg Chew Tablet OG-TUBE 81 mg DAILY JOSÉ Administration Furosemide 60 mg 07/06/25 23:30 07/07/25 00:41 Furosemide 10 Mg/Ml Sdv 10ml IVP 60 mg Q12H JOSÉ Administration Heparin Sodium/Sodium Chloride 25,000 unit in 500 mls @ 26.454 mls/hr 07/06/25 21:45 07/07/25 05:31 Heparin Drip IV 11.11 unit/kg/hr CONT JOSÉ 24.5 mls/hr Protocol Titration 12 UNIT/KG/HR Midazolam HCl 100 mg in 100 mls @ 0 mls/hr 07/07/25 00:54 07/07/25 04:11 Versed IV 6 mg/hr .Q0M JOSÉ 6 mls/hr Protocol Titration Per Protocol Piperacillin Sod/Tazobactam 50 mls @ 12.5 mls/hr 07/07/25 08:00 07/07/25 09:35 Sod 3.375 gm/ Sodium Chloride IV 12.5 mls/hr Q12H JOSÉ Administration Insulin Human Lispro 0 unit 07/07/25 08:00 07/07/25 08:38 Insulin Lispro 100 Unit/1 Ml SUBCUT Not Given WM&BEDTIME JOSÉ Protocol Levetiracetam 500 mg 07/07/25 06:00 07/07/25 06:17 Levetiracetam 500 Mg Tablet OG-TUBE 500 mg DAILY JOSÉ Administration Sucralfate 1 gm 07/07/25 08:30 07/07/25 09:35 Sucralfate 1 Gm Tablet PO 1 gm Q6H JOSÉ Administration PFSH Acute PFSH: Medical History Sleep apnea in adult Dementia with behavioral disturbance Venous stasis dermatitis of both lower extremities Atrial fibrillation Rotator cuff arthropathy of right shoulder Osteoarthritis of shoulders, bilateral Bilateral shoulder pain Pulmonary HTN Nonischemic cardiomyopathy Mixed hyperlipidemia Nonrheumatic aortic (valve) stenosis HTN (hypertension) Severe obstructive sleep apnea Nocturnal hypoxemia [place] (obstructive sleep apnea) ARUNA (acute kidney injury) Bilateral foot pain Generalized weakness Acute encephalopathy Generalized muscle weakness Acute alteration in mental status Confusion Epistaxis Anticoagulation adequate with anticoagulant therapy Transaminitis Daytime sleepiness Enrolled in chronic care management Gout attack Acute and chronic respiratory failure with hypoxia Ascending aortic aneurysm Congestive heart failure Pneumonia Acute and chronic respiratory failure with hypoxia Erectile dysfunction Type 2 diabetes mellitus Chronic kidney disease Anemia Diarrhea Diabetic foot Idiopathic gout, right ankle and foot DDD (degenerative disc disease), lumbosacral Surgical History Hx of arthroscopy of left knee Hx of tooth extraction History of cardiac pacemaker Family History Mother CAD (coronary artery disease) Brother Cancer Other Diabetes mellitus, type 2 Hypertension Denies family history of Diabetes Clotting disorder Dementia Chronic kidney disease (CKD) Suicide Anesthesia complication Bleeding disorder Lung disease Stroke Social History Smoking and tobacco/nicotine status: former use of tobacco/nicotine Second hand smoke exposure: No Alcohol intake: current Alcohol intake frequency: 3 or more drinks per day Alcohol type: beer Substance/Drug Use: never Additional social history: 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 He is in the midst of a divorce from his Anisha to whom he has been 15 years but for now he is still reporting her as next of kin. He wants full CODE STATUS Reconfirmed full CODE STATUS desired on 06/19/2025. Patient denies drug use or tobacco use he drink 2-3 beers a day but stopped 90 days ago Adopted: No Caregiver/support person: Yes (spouse) Lives independently: Yes Household members: spouse and children Housing: House Marital status: Number of children: 3 Number of grandchildren: 3 Highest education level completed: 6th Grade service: No Current occupational status: disabled Pets and animals: Yes Current gender identity: Male Special pola needs: No Agree to transfusion: Yes Vitals/I&O/Wt Last Vital Signs Temp 98.8 F 07/07/25 00:58 Pulse 73 07/07/25 06:30 Resp 14 07/07/25 09:34 BP 88/60 07/07/25 06:30 Pulse Ox 100 07/07/25 09:34 O2 Del Method Mechanical Ventilation 07/07/25 00:28 O2 Flow Rate 4 07/06/25 18:29 FiO2 35 07/07/25 09:34 07/06/25 07/07/25 07/07/25 22:59 06:59 14:59 Intake Total 800.827 / 800.827 717.016 / 1517.843 Output Total 1800 / 1800 Balance 800.827 / 800.827 -1082.984 / -282.157 Weight last 48 hrs Weight 249 lb 11.2 oz Weight 249 lb 11.2 oz Weight 243 lb Physical Exam Narrative: GENERAL: The patient is intubated and sedated. Moving all extremities. HEENT: No significant pallor, icterus or lymphadenopathy.Oral cavity: There are no mucous membrane lesions. NECK: Trachea appears to be central. No masses noted. No JVD or thyromegaly appreciated. RESPIRATORY: Chest is symmetrical. No intercostals muscle retraction or any accessory muscle activation. There is no chest wall tenderness. Breath sounds are heard bilaterally. No rales or rhonchi heard. No evidence of any consolidation. BREASTS: Deferred. HEART: The heart sounds are normal. No S3 or S4. Ejection systolic murmur grade 4/6 in the aortic area. LV systolic murmur grade 3 or 6 in the left sternal border.. No pericardial rub ABDOMEN: No vessel pulsations or distention. No tenderness. No organomegaly appreciated. Bowel sounds are normally heard. : Deferred. RECTAL: Deferred. LYMPHATIC: No lymphadenopathy noted in the neck. EXTREMITIES: 2-3+ pitting edema both lower extremities. Superficial healing ulcers in the left leg. The peripheral pulses are felt in good volume and amplitude. Superficial healing ulcers in the left lower extremity MUSCULOSKELETAL: No acute joint deformities or swelling SKIN: There are no significant rashes or ecchymosis NEUROPSYCHIATRIC: The patient is alert and oriented x3. Appears to be in a good mood. No tremors or rigidity noted. Urinary Catheter Management: Salazar: Cath Placed During This Visit: yes Reason for Continuing Indwelling Catheter: Accurate Measurement of Urinary Output in Critically Ill Patients Urinary Catheter Date of Insertion: 07/06/25 Urinary Catheter Time of Insertion: 20:15 Data 07/08/25 05:59 07/08/25 05:59 Other Labs: Laboratory Last Values WBC 6.94 10^3/uL (3.29-11.43) 07/07/25 04:59 RBC 2.64 10^6/uL (3.85-5.65) L 07/07/25 04:59 Hgb 7.60 g/dL (11.27-16.99) L 07/07/25 04:59 Hct 26.7 % (37-53) L 07/07/25 04:59 MCV 101.1 fl (82-101) H 07/07/25 04:59 MCH 28.8 pg (27-33) 07/07/25 04:59 MCHC 28.5 g/dL (30-55) L 07/07/25 04:59 RDW 20.4 % (12.1-15.1) H 07/07/25 04:59 Plt Count 102 10^3/cmm (157-399) L 07/07/25 04:59 MPV 11.9 fL (7.4-10.4) H 07/07/25 04:59 Neut % (Auto) 78.9 % 07/07/25 04:59 Lymph % (Auto) 12.4 % 07/07/25 04:59 [place] % (Auto) 7.3 % 07/07/25 04:59 Eos % (Auto) 0.4 % 07/07/25 04:59 Baso % (Auto) 0.4 % 07/07/25 04:59 Neut # (Auto) 5.47 10^3/uL (1.8-7.7) 07/07/25 04:59 Lymph # (Auto) 0.9 10^3/uL (0.8-4.8) 07/07/25 04:59 [place] # (Auto) 0.5 10^3/uL (0.2-0.9) 07/07/25 04:59 Eos # (Auto) 0.0 10^3/uL (0.0-0.8) 07/07/25 04:59 Baso # (Auto) 0.0 10^3/uL (0.0-0.1) 07/07/25 04:59 Nucleated RBC % (auto) 0.7 % 07/07/25 04:59 Nucleated RBCs # 0.1 /100WBC 07/07/25 04:59 APTT 76.5 SECONDS (23.9-36.7) H 07/07/25 04:59 Specimen Type Arterial 07/07/25 05:27 Sample Site Brachial, right 07/07/25 05:27 ABG pH 7.43 (7.35-7.45) 07/07/25 05:27 ABG pCO2 41.6 mmHg (35-45) 07/07/25 05:27 ABG pO2 105.0 mmHg (80.0-100.0) H 07/07/25 05:27 ABG PO2/FiO2 Ratio 262 07/07/25 05:27 ABG HCO3 27.7 mmol/L (22-26) H 07/07/25 05:27 ABG O2 Saturation 99.0 07/07/25 05:27 ABG Base Excess 3.1 mmol/L (-2.0-2.0) H 07/07/25 05:27 Anthony Test N/a 07/07/25 05:27 A-a O2 Gradient 16.3 mmHg (5-10) H 07/07/25 05:27 Hematocrit 27.9 % (42-52) L 07/07/25 05:27 Hgb O2 Saturation 96.1 % (95-100) 07/07/25 05:27 Carboxyhemoglobin 2.0 %THgb (0.4-20.1) 07/07/25 05:27 Methemoglobin 1.0 % (0.4-1.5) 07/07/25 05:27 Total Hemoglobin 9.1 g/dL (14-18) L 07/07/25 05:27 Sodium 137.0 mmol/L (131-143) 07/07/25 05:27 Potassium 2.9 mmol/L (3.5-5.0) L 07/07/25 05:27 Glucose 112.0 mg/dL (70-115) 07/07/25 05:27 Ionized Calcium 1.1 mmol/L (1.1-1.4) 07/07/25 05:27 O2 Delivery Device Vent 07/07/25 05:27 O2 Liters/Min 5.0 % 07/06/25 19:23 FiO2 40.0 % 07/07/25 05:27 Tidal Volume 0.50 07/07/25 05:27 PEEP 10.0 cmH20 07/07/25 05:27 Supervisor Paste Mixing ID Jdb 07/07/25 05:27 Sodium 134 mmol/L (136-145) L 07/06/25 19:08 Potassium 3.8 mmol/L (3.5-5.1) 07/06/25 19:08 Chloride 92 mmol/L (98-107) L 07/06/25 19:08 Carbon Dioxide 22 mmol/L (22-29) 07/06/25 19:08 Anion Gap 23.8 (5-19) H 07/06/25 19:08 BUN 80 mg/dL (8-23) H 07/06/25 19:08 Creatinine 3.7 mg/dL (0.7-1.2) H 07/06/25 19:08 GFR Calculation 16.4 mL/min (90-130) L 07/06/25 19:08 Glucose 165 mg/dL (65-115) H 07/06/25 19:08 Calculated Osmolality 306 mOsm/kg (285-295) H 07/06/25 19:08 Lactic Acid 4.9 mmol/L (0.5-2.2) H* 07/06/25 19:08 Lactic Acid (Sepsis) 1.9 mmol/L (0.5-2.2) 07/06/25 21:40 Calcium 8.7 mg/dL (8.5-10.5) 07/06/25 19:08 Total Bilirubin 1.9 mg/dL (0.15-1.2) H 07/06/25 19:08 AST 42 U/L (0-40) H 07/06/25 19:08 ALT 12 U/L (0-41) 07/06/25 19:08 Alkaline Phosphatase 45 U/L (40-130) 07/06/25 19:08 Troponin T Baseline 242 ng/L (0-15) H* 07/06/25 19:08 Troponin T 120 Minute 281.4 ng/L (0-15) H 07/06/25 21:40 Delta Troponin T 39.4 ABS# (0-10) H* 07/06/25 21:40 Troponin T Hi Sens 6Hr 285.9 ng/L (0-15) H 07/07/25 01:01 Troponin T Hi Sens 6Hr Delta 43.9 ng/L (0-12) H* 07/07/25 01:01 NT-Pro-B Natriuret Pep 67105 pg/mL (0-125) H 07/07/25 04:59 Total Protein 7.8 g/dL (6.6-8.7) 07/06/25 19:08 Albumin 3.6 g/dL (3.5-5.2) 07/06/25 19:08 Globulin 4.2 g/dL (1.3-4.6) 07/06/25 19:08 Procalcitonin 0.64 ng/mL (0-0.5) H 07/07/25 04:59 TSH 3.10 uIU/mL (0.27-4.20) 07/06/25 21:40 Urine Color Dark yellow (Yellow) A 07/06/25 20: Urine Appearance Cloudy (CLEAR) A 07/06/25 20: Urine pH 5.0 (5-7) 07/06/25 20:41 Ur Specific [place] 1.016 (1.005-1.030) 07/06/25 20:41 Urine Protein 2+ (Negative) A 07/06/25 20: Urine Glucose (UA) Trace (Normal) H 07/06/25 20: Urine Ketones Negative (Negative) 07/06/25 20: Urine Blood Negative (Negative) 07/06/25 20: Urine Nitrate Negative (Negative) 07/06/25 20: Urine Bilirubin 1+ (Negative) H 07/06/25 20: Urine Urobilinogen 1.0 mg/dL (Negative) 07/06/25 20:41 Ur Leukocyte Esterase Trace (Negative) A 07/06/25 20:41 Urine RBC 6-10 /hpf (0-2) 07/06/25 20:41 Urine WBC 0-5 /hpf (0-5) 07/06/25 20:41 Ur Squamous Epith Cells 0-5 /hpf (0-5) 07/06/25 20:41 Amorphous Sediment Not Reportable 07/06/25 20:41 Urine Bacteria None seen /hpf (NONE) 07/06/25 20:41 Hyaline Casts 69.07 /lpf 07/06/25 20:41 Urine Mucus 2+ /hpf 07/06/25 20:41 Nasal MRSA (PCR) Not detected (Negative) 07/07/25 02:30 Adenovirus (PCR) Not detected (NOT DETECT) 07/07/25 02:30 C. pneumoniae DNA (PCR) Not detected (NOT DETECT) 07/07/25 02:30 Coronavirus 229E (PCR) Not detected (NOT DETECT) 07/07/25 02:30 Human Metapneumovir PCR Not detected (NOT DETECT) 07/07/25 02:30 Influenza A (H1) PCR Not detected (NOT DETECT) 07/07/25 02:30 Influenza A (PCR) Negative (Negative) 07/06/25 19:14 Influ A (H1/09) PCR Not detected (NOT DETECT) 07/07/25 02:30 Influenza A (H3) PCR Not detected (NOT DETECT) 07/07/25 02:30 Influenza Type A (PCR) Not detected (NOT DETECT) 07/07/25 02:30 Influenza Type B (PCR) Not detected (NOT DETECT) 07/07/25 02:30 M. pneumoniae (PCR) Not detected (NOT DETECT) 07/07/25 02:30 Parainfluenza 1 (PCR) Not detected (NOT DETECT) 07/07/25 02:30 Parainfluenza 2 (PCR) Not detected (NOT DETECT) 07/07/25 02:30 Parainfluenza 3 (PCR) Not detected (NOT DETECT) 07/07/25 02:30 Parainfluenza 4 (PCR) Not detected (NOT DETECT) 07/07/25 02:30 RSV (PCR) Negative (Negative) 07/06/25 19:14 RSV Type A (PCR) Not detected (NOT DETECT) 07/07/25 02:30 RSV Type B (PCR) Not detected (NOT DETECT) 07/07/25 02:30 Entero/Rhino (PCR) Not detected (NOT DETECT) 07/07/25 02:30 SARS-CoV-2 (PCR) Not detected (NOT DETECT) 07/07/25 02:30 Other data: Transesophageal echo cardiogram on 06/30/2025 Mildly increased left ventricular cavity size. Severely decreased left ventricular systolic function. Left ventricular ejection fraction is estimated at 35 %. Bioprosthetic valve sitting in normal position, there is moderate bioprosthetic valve stenosis with Aortic valve area if 1.3cm2 by planimetry, there is trace aortic valve insufficiency. Moderately thickened mitral valve. Mitral annular calcification. No mitral valve stenosis. Mild mitral valve regurgitation. [id number] shunt seen at the atrial level with contrast consistent with PFO Moderately increased left atrial size. There is no pericardial effusion. Echocardiogram on 06/24/2025 moderately increased left ventricular cavity size. Severely decreased left ventricular systolic function. Left ventricular ejection fraction is estimated at 30 %. There appeared to be septal bounce which could be secondary to interventricular conduction delay or paced rhythm.Grade III/IV diastolic dysfunction (restrictive filling pattern), severely elevated filling pressures. There appeared to be bioprosthetic valve sitting in a normal position, it appeared to be moderate to severely stenotic, mean gradient 54 mmHg, DESIRE 0.62 cm squared. Mild to moderate aortic valve regurgitation. Moderately thickened mitral valve. Moderate mitral annular calcification. No mitral valve stenosis. Moderate mitral valve regurgitation. Mild tricuspid valve regurgitation. Normal right ventricular size and systolic function. Catheter/pacemaker wire visualized in the right ventricle. There is no pericardial effusion. Right atrial pressure is around 10 mm of mercury. EKG Showed 100% V paced rhythm. A&P Assessment and plan 1. Acute on chronic systolic heart failure: The etiology of the heart failure is not clear at this time. In view of the patient's worsening kidney function and LV function, this combination might be playing a role. The aortic valve stenosis also could be contributing factor. It appears to me that the patient has severe aortic valve stenosis. However the JONATHAN is reported as moderate . 2. Aortic valve stenosis, etiology of cardiac valve disease unspecified: Patient has a bioprosthetic valve aortic position. Patient may benefit from redo aortic valve surgery. This needs to be discussed further. 3. Nonischemic cardiomyopathy: The latest LV ejection fraction was around 30% by echocardiogram. Patient had to be taken off the Entresto because of the worsening kidney function. Will continue to optimize the afterload reducing agents. 4. Presence of permanent cardiac pacemaker: The pacing function appears to be appropriate. Will continue on the current management. 5. Acute kidney injury superimposed on chronic kidney disease: Will be monitoring this closely. 6. Primary hypertension: Currently normotensive. May continue other current measures. 7. Chronic atrial fibrillation: Patient seem to have chronic intermittent atrial fibrillation. Currently with a controlled ventricular response rate. He is on long-term oral anticoagulation. This may be continued. 8. Mixed hyperlipidemia: Continue the current medications. 9. Pulmonary HTN: Most likely is a group 2 pulmonary hypertension. Will be focusing more on the treatment of heart failure and LV dysfunction. 10. Venous stasis dermatitis of both lower extremities: Continue on the current measures. 11. Type 2 diabetes mellitus without complication, without long-term current use of insulin: Plan: Other problems are COPD/sleep apnea Anemia requiring blood transfusion Management of the respiratory status, as per pulmonology. Patient may be carefully treated with diuretics. And redo aortic valve surgery should be a consideration. However because of patient's multiple risk factors, he carries a higher risk. Based on the clinical progress, further recommendations will be made. Thank you for the opportunity to evaluate this patient and make these recommendations PDMP PDMP Reviewed: Not Reviewed Coding Level of Care Code 85560 Diagnoses Acute on chronic systolic heart failure I50.23 Aortic valve stenosis, etiology of cardiac valve disease unspecified I35.0 Cardiac valve disease etiology: etiology unspecified Nonischemic cardiomyopathy I42.8 Presence of permanent cardiac pacemaker Z95.0 Acute kidney injury superimposed on chronic kidney disease N17.9; N18.9 Primary hypertension I10 Hypertension type: primary hypertension Chronic atrial fibrillation I48.20 Atrial fibrillation type: unspecified chronic Mixed hyperlipidemia E78.2 Pulmonary HTN I27.20 Venous stasis dermatitis of both lower extremities I87.2 Type 2 diabetes mellitus without complication, without long-term current use of insulin E11.9 Diabetes mellitus retirement insulin use: without associate marketing manager use Diabetes mellitus complication status: without complication
[2025-07-07 10:04] LABS: Chloride 98 mmol/L (98-107); Potassium 3.2 mmol/L (3.5-5.1); Sodium 138 mmol/L (136-145)
[2025-07-07 10:14] LABS: Alanine Aminotransferase 11 U/L (0-41); Albumin Level 3.0 g/dL (3.5-5.2); Alkaline Phosphatase 35 U/L (40-130); Anion Gap 19.3 (5-19); Aspartate Amino Transferase 38 U/L (0-40); Blood Urea Nitrogen 79 mg/dL (8-23); Calcium 8.1 mg/dL (8.5-10.5); Carbon Dioxide 23 mmol/L (22-29); Creatinine Clr Calc Pharmacy 25.0642; Globulin 3.4 g/dL (1.3-4.6); Glucose 134 mg/dL (65-115); Osmolality Calculated 310 mOsm/kg (285-295); Total Protein 6.4 g/dL (6.6-8.7)
--- NOTE | 2025-07-07 10:57 | PC.SOCIAL ---
IMM Updated Pt is intubated & not expected to d/c within the next 24-48hrs. Provided pt a copy of IMM & left at bedside. Initialed, dated, & timed a copy & placed in chart.
[2025-07-07 11:26] LABS: Lactic Sepsis W/Reflex 1.2 mmol/L (0.5-2.2)
[2025-07-07 11:30] LABS: Partial Thromboplastin Time 74.3 SECONDS (23.9-36.7)
--- NOTE | 2025-07-07 11:55 | XR_ITS ---
WS: [id number] PORTABLE CHEST HISTORY: Post PICC insertion COMPARISON: 07/06/2025 Normal position of LEFT PICC line. PICC line terminates near the cavoatrial junction. LEFT subclavian pacer. Prior CABG. Aortic valve replacement. Continued increasing opacification throughout both lungs consistent with increasing pulmonary congestion. Small LEFT pleural effusion. Cardiac size: Increasing cardiac size. Fullness in the hilar regions from congestion. Mediastinum/Aorta: Widening of the mean sac diam. No osseous abnormality seen. Endotracheal tube and nasogastric tubes are in good position. XR/XR chest 1V portable 71500 IMPRESSION: 1. Satisfactory position of LEFT PICC line. 2. Increasing pulmonary venous congestion. 3. Bilateral hilar enlargement. Most likely from dilated pulmonary arteries. 4. Endotracheal and nasogastric tubes in good position.
--- NOTE | 2025-07-07 11:56 | PHA.VACGOAL ---
Vancomycin Goal - Goal Vancomycin Goal:: 15-20 mg/L Vancomycin Indication:: Pneumonia - Therapy Day of therpy:: Day []of [] . Actual body weight (kg): 249 lb 11.2 oz - Data Labs: WBC 6.94 10^3/uL (3.29-11.43) 07/07/25 04:59 RBC 2.64 10^6/uL (3.85-5.65) L 07/07/25 04:59 Hgb 7.60 g/dL (11.27-16.99) L 07/07/25 04:59 Hct 26.7 % (37-53) L 07/07/25 04:59 MCV 101.1 fl (82-101) H 07/07/25 04:59 MCH 28.8 pg (27-33) 07/07/25 04:59 MCHC 28.5 g/dL (30-55) L 07/07/25 04:59 RDW 20.4 % (12.1-15.1) H 07/07/25 04:59 Sodium 138 mmol/L (136-145) 07/07/25 01:01 Potassium 3.2 mmol/L (3.5-5.1) L 07/07/25 01:01 Chloride 98 mmol/L (98-107) 07/07/25 01:01 Carbon Dioxide 23 mmol/L (22-29) 07/07/25 01:01 Anion Gap 19.3 (5-19) H 07/07/25 01:01 BUN 79 mg/dL (8-23) H 07/07/25 01:01 Creatinine 3.5 mg/dL (0.7-1.2) H 07/07/25 01:01 GFR Calculation 17.5 mL/min (90-130) L 07/07/25 01:01 Treatment plan:: new consult Regimen:: 2000 mg given overnight POSSIBLE PNEUMONIA (mrsa NASAL NEGATIVE) TROUGH ORDERED FOR 2000 DOSE TBD AT THAT TIME
--- NOTE | 2025-07-07 12:12 | PC.NURSE ---
[facility] Non invasive hemodynamic monitoring: SVI CI HR 1155 baseline 40 2.8 71 1156 46 3.3 71 1157 47 3.3 71 1158 52 3.7 70 1159 PLR 39 2.8 71 1200 36 2.6 71 1201 34 2.4 70 SVI change of -18.5%. Pt not fluid responsive
--- NOTE | 2025-07-07 13:35 | PICC.NOTE ---
Triple lumen PICC placed to left basilic vein. Referred to vascular access nurse for PICC placement due to poor IV access and multiple IV gtts. Risks and benefits discussed and informed consent obtained via phone from pt daughter, Anjali. Right arm assessed with superficial thrombosis noted in right basilic vein. Pt recently had PICC placed by this RN last week and it was removed at discharge. Left arm assessed with left basilic vein measuring 5.2 mm, straight, and apparent best choice for placement. Using sterile technique and MST, left basilic vein accessed x 1 stick. Mid-arm circumference measured 10 cm from left AC 27 cm. Trimmed cath 48 cm with 0 cm external length noted. CXR shows tip in cavoatrial junction, in good position for use per radiologist. Line secured with stat-lock. Insertion site covered with Biopatch and TSM. Report given to bedside nurse, ROSA Ford.
[2025-07-07] MEDS: midazolam hcl 100 MG/100 ML BAG 6 MG IV (14:00)
--- NOTE | 2025-07-07 14:17 | PM.CONSULT ---
Providers/Reason For Consult Consulting Physician/Specialty*: Dr Joseph Rodriguez/Pulmonary and Critical Care Reason for Consult*: On mechanical ventilation Attending Physician: Josias Matthews MD Primary Care Provider: BELLA Bahena History of Present Illness History of Present Illness Pawan Marcum is a 70 year old male with past medical history of chronic congestive heart failure, status post AVR with bioprosthetic valve, diabetes, pulmonary hypertension secondary most likely,, history of PE, status post permanent cardiac pacemaker, obesity department COPD, chronic respiratory failure presents to the hospital yesterday with symptoms of shortness of breath. Was found to be in acute respiratory failure intubated after trial of BiPAP, currently on the ventilator tolerating it well. Was also noted to be non-STEMI, cardiology consulted heparin drip started. Blood pressure is slightly low MAP at 63. Not fluid responsive on NICOM. Review of systems-unobtainable patient is on the vent Medications/Allergies Home Medications ?Medication ?Instructions ?Recorded ?Confirmed ?Last Taken ?Type Blood pressure cuff and machine #1 ea 06/27/22 07/07/25 08/12/22 Rx o2 at 3L per nasal cannula #1 ea 08/11/22 07/07/25 08/12/22 Rx nitroglycerin 0.3 mg sublingual 0.3 mg sublingual Q5M PRN chest 10/08/22 07/07/25 Unknown Rx tablet pain #30 tabs Diabetic shoes with inserts #1 ea 04/24/23 07/07/25 Unknown Rx wheelchair #1 ea 06/02/24 07/07/25 Unknown Rx compressor, for nebulizer #1 ea 06/07/24 07/07/25 Unknown Rx nebulizer accessories #1 ea 06/07/24 07/07/25 Unknown 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,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,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 #1 ea 06/20/24 07/07/25 Unknown Rx (Dexcom G[employer]) tamsulosin 0.4 mg capsule 0.4 mg PO BEDTIME 02/23/25 07/07/25 06/07/25 History sildenafil 50 mg tablet (Viagra) 50 mg PO DAILY PRN sexual activity 02/24/25 07/07/25 03/30/25 Rx #10 tabs allopurinol 100 mg tablet 50 mg (1/2 x 100 mg) PO .EVERY 03/24/25 07/07/25 07/06/25 Rx OTHER DAY #30 tabs diabetic shoes with inserts #1 ea 04/13/25 07/07/25 Unknown Rx dapagliflozin propanediol 10 mg 10 mg PO DAILY #90 tabs 04/14/25 07/07/25 07/06/25 Rx tablet (Farxiga) dulaglutide 1.5 mg/0.5 mL 1.5 mg (0.5 mL) SUBCUT .weekly #6 04/14/25 07/07/25 07/04/25 Rx subcutaneous [facility] fenofibrate 160 mg tablet 160 mg PO DAILY #90 tabs 04/14/25 07/07/25 06/08/25 Rx Diabetic Shoes 3 x insoles #1 ea 04/18/25 07/07/25 Unknown Rx diabetic shoes with inserts #1 ea 05/17/25 07/07/25 Unknown Rx atorvastatin 40 mg tablet 40 mg PO QPM 06/08/25 07/07/25 06/07/25 History apixaban 5 mg tablet (Eliquis) 2.5 mg (1/2 x 5 mg) PO BID #1 tab 07/02/25 07/07/25 06/08/25 Rx aripiprazole 10 mg tablet 5 mg (1/2 x 10 mg) PO BID #60 tabs 07/02/25 07/07/25 07/06/25 Rx ferrous sulfate 324 mg (65 mg 324 mg PO DAILY #90 tabs 07/02/25 07/07/25 07/06/25 Rx iron) tablet,delayed release fludrocortisone 0.1 mg tablet 0.1 mg PO DAILY #30 tabs 07/02/25 07/07/25 07/06/25 Rx furosemide 40 mg tablet 80 mg (2 x 40 mg) PO BID@08,16 #60 07/02/25 07/07/25 07/06/25 Rx tabs multivitamin with folic acid 400 1 tab PO DAILY #90 tabs 07/02/25 07/07/25 07/06/25 Rx mcg tablet (Thera) olanzapine 5 mg tablet 5 mg PO BEDTIME #30 tabs 07/02/25 07/07/25 07/05/25 Rx polyethylene glycol 3350 17 gram 17 g PO DAILY #30 ea 07/02/25 07/07/25 07/06/25 Rx oral powder packet potassium chloride 20 mEq 20 meq PO BID #60 tabs 07/02/25 07/07/25 07/06/25 Rx tablet,extended release(part/cryst) (Devin Dior) 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 sensor (Dexcom G7 #3 ea 07/04/25 07/07/25 Unknown Rx Sensor device) levetiracetam 500 mg tablet 500 mg PO QDAY #30 tabs 07/04/25 07/07/25 07/06/25 Rx tizanidine 4 mg tablet 4 mg PO .HS PRN Muscle Spasticity 07/04/25 07/07/25 Unknown Rx #90 tabs aspirin 81 mg tablet,delayed 81 mg PO DAILY 07/05/25 07/07/25 07/06/25 History release docusate sodium 250 mg capsule 250 mg PO BID 07/05/25 07/07/25 07/06/25 History metolazone 2.5 mg tablet 2.5 mg PO DAILY 07/05/25 07/07/25 07/06/25 History midodrine 10 mg tablet 10 mg PO TID 07/05/25 07/07/25 07/06/25 History DME: Walker #1 ea 07/06/25 07/07/25 Unknown Rx Allergies Allergy/AdvReac Type Severity Reaction Status Date / Time fentanyl Allergy Unknown Verified 07/06/25 13:39 lisinopril AdvReac Mild Coughing Verified 07/06/25 13:39 Current Medications Generic Name Dose Route Start Last Admin Trade Name Freq PRN Reason Stop Dose Admin Aspirin 81 mg 07/07/25 06:00 07/07/25 06:17 Aspirin 81 Mg Chew Tablet OG-TUBE 81 mg DAILY JOSÉ Administration Heparin Sodium/Sodium Chloride 25,000 unit in 500 mls @ 26.454 mls/hr 07/06/25 21:45 07/07/25 11:38 Heparin Drip IV 11.11 unit/kg/hr CONT JOSÉ 24.5 mls/hr Protocol Titration 12 UNIT/KG/HR Midazolam HCl 100 mg in 100 mls @ 0 mls/hr 07/07/25 00:54 07/07/25 14:00 Versed IV 6 mg/hr .Q0M JOSÉ 6 mls/hr Protocol Administration Per Protocol Piperacillin Sod/Tazobactam 50 mls @ 12.5 mls/hr 07/07/25 08:00 07/07/25 13:39 Sod 3.375 gm/ Sodium Chloride IV Infused Q12H JOSÉ Infusion Insulin Human Lispro 0 unit 07/07/25 08:00 07/07/25 12:34 Insulin Lispro 100 Unit/1 Ml SUBCUT Not Given WM&BEDTIME JOSÉ Protocol Levetiracetam 500 mg 07/07/25 06:00 07/07/25 06:17 Levetiracetam 500 Mg Tablet OG-TUBE 500 mg DAILY JOSÉ Administration Sucralfate 1 gm 07/07/25 08:30 07/07/25 09:35 Sucralfate 1 Gm Tablet PO 1 gm Q6H JOSÉ Administration PFSH Acute PFSH: Medical History (Updated 07/07/25 @ 14:48 by Honorio Scott MD) Sleep apnea in adult Dementia with behavioral disturbance Venous stasis dermatitis of both lower extremities Atrial fibrillation Rotator cuff arthropathy of right shoulder Osteoarthritis of shoulders, bilateral Bilateral shoulder pain Pulmonary HTN Nonischemic cardiomyopathy Mixed hyperlipidemia Nonrheumatic aortic (valve) stenosis HTN (hypertension) Severe obstructive sleep apnea Nocturnal hypoxemia [place] (obstructive sleep apnea) ARUNA (acute kidney injury) Bilateral foot pain Generalized weakness Acute encephalopathy Generalized muscle weakness Acute alteration in mental status Confusion Epistaxis Anticoagulation adequate with anticoagulant therapy Transaminitis Daytime sleepiness Enrolled in chronic care management Gout attack Acute and chronic respiratory failure with hypoxia Ascending aortic aneurysm Congestive heart failure Pneumonia Acute and chronic respiratory failure with hypoxia Erectile dysfunction Type 2 diabetes mellitus Chronic kidney disease Anemia Diarrhea Diabetic foot Idiopathic gout, right ankle and foot DDD (degenerative disc disease), lumbosacral Surgical History Hx of arthroscopy of left knee Hx of tooth extraction History of cardiac pacemaker Family History Mother CAD (coronary artery disease) Brother Cancer Other Diabetes mellitus, type 2 Hypertension Denies family history of Diabetes Clotting disorder Dementia Chronic kidney disease (CKD) Suicide Anesthesia complication Bleeding disorder Lung disease Stroke Social History Smoking and tobacco/nicotine status: former use of tobacco/nicotine Second hand smoke exposure: No Alcohol intake: current Alcohol intake frequency: 3 or more drinks per day Alcohol type: beer Substance/Drug Use: never Additional social history: 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 He is in the midst of a divorce from his Anisha to whom he has been 15 years but for now he is still reporting her as next of kin. He wants full CODE STATUS Reconfirmed full CODE STATUS desired on 06/19/2025. Patient denies drug use or tobacco use he drink 2-3 beers a day but stopped 90 days ago Adopted: No Caregiver/support person: Yes (spouse) Lives independently: Yes Household members: spouse and children Housing: House Marital status: Number of children: 3 Number of grandchildren: 3 Highest education level completed: 6th Grade service: No Current occupational status: disabled Pets and animals: Yes Current gender identity: Male Special pola needs: No Agree to transfusion: Yes Vitals/I&O/Wt Last Vital Signs Temp 98.1 F 07/07/25 07:15 Pulse 71 07/07/25 11:00 Resp 21 H 07/07/25 12:51 BP 79/55 07/07/25 11:00 Pulse Ox 96 07/07/25 12:51 O2 Del Method Mechanical Ventilation 07/07/25 11:00 O2 Flow Rate 4 07/06/25 18:29 FiO2 35 07/07/25 12:51 07/06/25 07/07/25 07/07/25 22:59 06:59 14:59 Intake Total 800.827 / 800.827 717.016 / 1517.843 258.758 / 258.758 Output Total 1800 / 1800 Balance 800.827 / 800.827 -1082.984 / -282.157 258.758 / 258.758 Weight last 48 hrs Weight 249 lb 11.2 oz Weight 249 lb 11.2 oz Weight 243 lb Physical Exam Narrative: Per RN General: Intubated sedated, morbidly obese HEENT: EOMI Pulmonary: Diminished breath sounds bilaterally Cardiovascular: Irregularly irregular, nl s1s2, Abdomen: soft, nt, nd, no r/g, obese Extremities: no edema Neurologic: grossly intact Agree with above exam Urinary Catheter Management: Salazar: Cath Placed During This Visit: yes Reason for Continuing Indwelling Catheter: Accurate Measurement of Urinary Output in Critically Ill Patients Urinary Catheter Date of Insertion: 07/06/25 Urinary Catheter Time of Insertion: 20:15 Data 07/07/25 16:43 07/07/25 16:43 A&P Assessment and plan 1. Acute respiratory failure with hypoxia: 2. Congestive heart failure: Plan: # Acute on chronic hypoxic/hypercapnic respiratory failure - Continue mechanical ventilation support-wean as tolerated - Low tidal volume ventilation strategy-permissive hypercapnia - Ventilator settings tidal volume 500/respiratory rate of 14/PEEP 10/FiO2 40% satting 100% O2 sat. Keep O2 sat between 90 to 92% - Bronchopulmonary hygiene, keep head of the bed elevated # Non-STEMI- - Cardiology following appreciate help. Continue heparin drip - Reviewed labs-07/05/2025-troponin delta 39 - Cardiology following appreciate help. Status post JONATHAN showing moderate aortic stenosis valve in place of moderate MR # Septic shock-most likely secondary to pneumonia - Chest x-ray reviewed 07/06/2025-pulmonary vascular congestion noted along with bilateral hilar involvement probable pneumonia. Cardiomegaly. - Currently on vancomycin and Zosyn, cultures pending blood and sputum. If negative in the next couple of days, it would be reasonable to stop antibiotics. This is looking more like acute congestive heart failure rather than pneumonia. - Start Levophed drip to keep MAP above 65 - Volume overloaded-avoid fluid resuscitation, NICOM shows not to be fluid responsive. He # Acute anemia Hemoglobin 8, Unclear etiology. Continue heparin drip # Acute on chronic respiratory acidosis ABG reviewed pH is 7.43, pCO2 41, PaO2 105. Resolved # ARUNA on chronic kidney disease Current creatinine is 3.1. Patient making urine, continue to monitor closely. Baseline creatinine is 2.3 02/24/2025. # Hypokalemia -Replete electrolyte as needed. # Mild transaminitis Most likely secondary to shock #Acute on chronic systolic congestive heart failure - Will start diuresis with Lasix 20 mg IV will be given today # Aortic stenosis on JONATHAN with moderate MR - Reviewed cardiology notes, appreciate help. - Suggesting redo AVR. Will discuss with team in the morning. # Venous stasis dermatitis # COPD-without exacerbation -As needed DuoNebs # Obstructive sleep apnea On mechanical ventilation # Morbid obesity # A-fib with RVR # Status post aortic valve replacement with bioprosthetic valve # Pulmonary hypertension most likely group 2 mixed with possible group 3 The high probability of a clinically significant, sudden or life threatening deterioration of the patient's [Respiratory, cardiac and renal] system(s) required my full and direct attention, intervention and personal management. The critical care time is as shown. This time is in addition to time spent performing any reported procedures but includes the following: [x] Data and vital sign review and interpretation [x] Patient assessment, examination and intervention [x] Documentation [x] Medication orders and management Critical Care Time (min): 45 Telemedicine Consent Patient seen today via Telemedicine by agreement and consent of patient.? Telemedicine technology used during the visit includes audio and, as available, review of images.? The patient encounter is appropriate and reasonable under the circumstances given the patient?s particular presentation at this time.? The patient has been advised of the potential risks and limitations of this mode of treatment (including but not limited to the absence of in-person examination) and has agreed to be treated in a remote fashion in spite of them.? Any, and all, of the patient?s/patient?s family?s questions on this issue have been answered and I have made no promises or guarantees to the patient. PDMP PDMP Reviewed: Not Reviewed Coding Level of Care Code Critical Care >/= 30 minutes Diagnoses Acute respiratory failure with hypoxia J96.01 Congestive heart failure I50.9
--- NOTE | 2025-07-07 16:19 | P.PN_ITS ---
Subjective 2 Subjective: Patient was seen this morning, no family was at bedside, is on 35% FiO2 MAP is around 65, not on any pressors, currently on heparin drip, Vitals/I&O/Wt Last Vital Signs Temp 98.8 F 07/07/25 13:45 Pulse 71 07/07/25 16:00 Resp 14 07/07/25 15:48 BP 88/69 07/07/25 16:00 Pulse Ox 93 07/07/25 16:00 O2 Del Method Mechanical Ventilation 07/07/25 16:00 O2 Flow Rate 4 07/06/25 18:29 FiO2 35 07/07/25 16:00 07/07/25 07/07/25 07/07/25 06:59 14:59 22:59 Intake Total 717.016 / 1517.843 378.758 / 378.758 Output Total 1800 / 1800 Balance -1082.984 / -282.157 378.758 / 378.758 Weight last 48 hrs Weight 113.262 kg Weight 113.262 kg Weight 110.223 kg Physical Exam 2 Const: COMMON NORMALS: no acute distress ORIENTATION/CONSCIOUSNESS: Yes awake Eye: OTHER: Pupils equal round reactive to light Intubated, sedated Resp: COMMON NORMALS: normal respiratory effort, No retractions and No use of accessory muscles AUSCULTATION: wheezes Cardio: COMMON NORMALS: regular rate, regular rhythm, S1 normal heart sound present and S2 normal heart sound present RATE: regular rate RHYTHM: r egular rhythm HEART SOUNDS: S1 normal heart sound present and S2 normal heart sound present GI: COMMON NORMALS: Normal to inspection, nondistended, normoactive bowel sounds present and non-tender Extremity: COMMON NORMALS: no calf tenderness and no pedal edema Urinary Catheter Management: Salazar: Cath Placed During This Visit: yes Reason for Continuing Indwelling Catheter: Accurate Measurement of Urinary Output in Critically Ill Patients Urinary Catheter Date of Insertion: 07/06/25 Urinary Catheter Time of Insertion: 20:15 Data 07/07/25 04:59 07/07/25 01:01 A&P Assessment and plan 1. Acute on chronic systolic heart failure: 2. Aortic valve stenosis, etiology of cardiac valve disease unspecified: 3. Venous stasis dermatitis of both lower extremities: Compression stockings and leg elevation 4. Acute hypoxemic respiratory failure: 5. Acute on chronic systolic (congestive) heart failure: 6. Sepsis: 7. Non-ST elevation RI (NSTEMI): 8. Persistent atrial fibrillation: 9. S/P aortic valve replacement with bioprosthetic valve: 10. Diabetes mellitus with diabetic neuropathy: Insulin sliding scale 11. Hx of seizure disorder: Home medication reviewed and reconciled, patient on Keppra 500 daily and to initiate 12. Pulmonary HTN: 13. Mixed hyperlipidemia: Patient on fenofibrate and statin To resume after reconciliation 14. Pulmonary embolism: 15. Presence of permanent cardiac pacemaker: 16. DDD (degenerative disc disease), lumbosacral: Plan: Acute hypoxic respiratory failure - Secondary to systolic CHF exacerbation - Secondary to pneumonia Plan -Pulmonary consulted -intubated, sedated mechanical ventilation - Versed for sedation - Vancomycin - Zosyn - Blood cultures - Sputum cultures NSTEMI -Type I versus type II NSTEMI CONCLUSIONS Mildly dilated left ventricle. Severe diffuse hypokinesia of the septum and anteroseptal segments with slightly dyskinetic apex. LV ejection fraction around 35%.Grade III/IV diastolic dysfunction (restrictive filling pattern), severely elevated filling pressures. Normal RV size with the slightly diminished ejection fraction Severely increased right atrial size. Catheter/pacemaker wire in the right atrial cavity. Severely increased left atrial size. Catheter/pacemaker wire in the right ventricular cavity. Thickened mitral valve. Moderate mitral annular calcification. At least moderate mitral regurgitation The bioprosthetic valve at the aortic position appears to be thickened with some calcification.trace to mild aortic valve regurgitation. Severe low gradient aortic valve stenosis, mean gradient 20.7 mmHg, DESIRE 0.89 cm squared. Mild tricuspid valve regurgitation. Estimated pulmonary artery peak systolic pressure 48 mmHg There is no pericardial effusion. Compared to the study from 06/24/2025, the aortic valve stenosis appears to be less severe Plan - Aspirin, statin - Heparin drip - Cardiology consulted History of bioprosthetic aortic valve Sepsis, septic shock - PICC line placed - Maintain MAP greater than 65 Acute anemia - Protonix, Carafate - Transfuse hemoglobin if less than 7 Thrombocytopenia Metabolic acidosis - Secondary to acute renal failure, - Secondary to sepsis ARUNA on CKD - Secondary to sepsis, - Secondary to renal failure PDMP PDMP Reviewed: Not Reviewed Attestations 2 Medical Necessity Statement*: Patient requires hospitalization for acute hypoxic respiratory failure, secondary to CHF, pneumonia, NSTEMI, shock, anemia Coding Level of Care Code Critical Care >/= 30 minutes Critical care time (in minutes): 45 The high probability of a clinically significant, sudden or life threatening deterioration, as referenced in this documentation, required my full and direct attention, intervention and personal management. The critical care time shown is in addition to time spent performing any reported separately billable procedures and includes the following: [x] Data and vital sign review and interpretation [x ] Patient assessment, examination and intervention [x] Medication orders and management [x] Patient/Family updates as able [x] Care Coordination and Documentation. Diagnoses Acute on chronic systolic heart failure I50.23 Aortic valve stenosis, etiology of cardiac valve disease unspecified I35.0 Cardiac valve disease etiology: etiology unspecified Venous stasis dermatitis of both lower extremities I87.2 Acute hypoxemic respiratory failure J96.01 Acute on chronic systolic (congestive) heart failure I50.23 Sepsis A41.9 Non-ST elevation RI (NSTEMI) I21.4 Persistent atrial fibrillation I48.19 S/P aortic valve replacement with bioprosthetic valve Z95.3 Diabetes mellitus with diabetic neuropathy E11.40 Hx of seizure disorder Z86.69 Pulmonary HTN I27.20 Mixed hyperlipidemia E78.2 Pulmonary embolism I26.99 Presence of permanent cardiac pacemaker Z95.0 DDD (degenerative disc disease), lumbosacral M51.379 Sepsis Event Note Evaluation Current stage of sepsis: sepsis Possible source: pulmonary Focused Exam Vital Signs Temp Pulse Resp BP Pulse Ox O2 Del Method FiO2 07/07/25 16:00 71 88/69 93 Mechanical Ventilation 35 07/07/25 15:48 14 93 35 07/07/25 15:45 70 90/68 93 Mechanical Ventilation 35 07/07/25 15:30 70 14 90/69 97 Mechanical Ventilation 35 07/07/25 15:15 71 14 97/68 98 Mechanical Ventilation 35 07/07/25 15:00 71 14 87/59 100 Mechanical Ventilation 35 07/07/25 14:45 70 14 87/62 100 Mechanical Ventilation 35 07/07/25 14:30 72 14 95/65 100 Mechanical Ventilation 35 07/07/25 14:15 72 14 89/64 100 Mechanical Ventilation 35 07/07/25 14:00 82 07/07/25 14:00 72 14 97/61 100 Mechanical Ventilation 35 07/07/25 13:45 98.8 F 65 14 87/57 100 Mechanical Ventilation 35 07/07/25 13:30 72 14 94/65 100 Mechanical Ventilation 35 07/07/25 13:15 73 14 104/70 100 Mechanical Ventilation 35 07/07/25 13:00 72 14 97/74 96 Mechanical Ventilation 35 07/07/25 12:51 21 H 96 35 07/07/25 12:45 71 14 100/56 92 Mechanical Ventilation 35 07/07/25 12:30 72 14 103/70 97 Mechanical Ventilation 35 07/07/25 12:15 70 14 103/70 94 Mechanical Ventilation 35 07/07/25 12:00 71 14 87/66 99 Mechanical Ventilation 35 07/07/25 11:45 70 14 82/58 100 Mechanical Ventilation 35 07/07/25 11:30 70 14 84/58 100 Mechanical Ventilation 35 07/07/25 11:15 74 14 86/62 100 Mechanical Ventilation 35 07/07/25 11:11 14 100 35 07/07/25 11:00 71 14 79/55 100 Mechanical Ventilation 35 07/07/25 10:45 74 14 85/53 99 Mechanical Ventilation 35 07/07/25 10:30 70 14 84/59 99 Mechanical Ventilation 35 07/07/25 10:15 70 14 80/57 99 Mechanical Ventilation 35 07/07/25 10:00 70 14 85/60 99 Mechanical Ventilation 35 07/07/25 10:00 35 07/07/25 09:45 70 14 78/56 100 Mechanical Ventilation 35 07/07/25 09:34 14 100 35 07/07/25 09:30 70 14 85/65 88 L Mechanical Ventilation 35 07/07/25 09:15 75 14 86/63 86 L Mechanical Ventilation 35 07/07/25 09:00 70 14 91/67 98 Mechanical Ventilation 35 07/07/25 08:45 70 14 88/68 98 Mechanical Ventilation 35 07/07/25 08:30 71 14 92/68 98 Mechanical Ventilation 35 07/07/25 08:15 71 14 85/68 97 Mechanical Ventilation 40 07/07/25 08:00 70 80/57 100 Mechanical Ventilation 40 07/07/25 08:00 40 07/07/25 08:00 14 07/07/25 08:00 21 H 100 35 07/07/25 07:45 71 14 78/56 94 Mechanical Ventilation 40 07/07/25 07:30 70 14 79/58 94 Mechanical Ventilation 40 07/07/25 07:15 98.1 F 71 14 79/60 92 Mechanical Ventilation 40 07/07/25 07:00 71 14 84/57 95 Mechanical Ventilation 40 07/07/25 06:45 72 14 84/63 94 Mechanical Ventilation 40 07/07/25 06:30 73 88/60 07/07/25 06:00 73 83/62 07/07/25 06:00 70 07/07/25 05:45 73 86/62 07/07/25 05:30 70 88/60 93 07/07/25 05:15 71 84/56 93 07/07/25 05:00 71 90/61 93 07/07/25 04:45 71 88/58 07/07/25 04:30 70 83/60 99 Respiratory exam: Present wheezes Peripheral pulse strength: 2+ Slightly Diminished Peripheral pulse location: Pedal Skin exam: normal turgor Date exam was performed: 07/07/25 Time exam was performed: 16:21 Problem List 1. Acute on chronic systolic heart failure: Status: Acute 2. Aortic valve stenosis, etiology of cardiac valve disease unspecified: Status: Acute 3. Venous stasis dermatitis of both lower extremities: Status: Acute 4. Acute hypoxemic respiratory failure: Status: Acute 5. Acute on chronic systolic (congestive) heart failure: Status: Acute 6. Sepsis: Status: Acute 7. Non-ST elevation RI (NSTEMI): Status: Acute 8. Persistent atrial fibrillation: Status: Acute 9. S/P aortic valve replacement with bioprosthetic valve: Status: Acute 10. Diabetes mellitus with diabetic neuropathy: Status: Acute 11. Hx of seizure disorder: Status: Acute 12. Pulmonary HTN: Status: Acute 13. Mixed hyperlipidemia: Status: Acute 14. Pulmonary embolism: Status: Acute 15. Presence of permanent cardiac pacemaker: Status: Acute 16. DDD (degenerative disc disease), lumbosacral: Status: Chronic
[2025-07-07 16:44] LABS: Partial Thromboplastin Time 65.9 SECONDS (23.9-36.7)
[2025-07-07 17:11] LABS: Hematocrit 27.8 % (37-53); Hemoglobin 8.00 g/dL (11.27-16.99); Mean Corpuscular HGB Conc 28.8 g/dL (30-55); Mean Corpuscular Hemoglobin 29.2 pg (27-33); Mean Corpuscular Volume 101.5 fl (82-101); Nucleated Red Blood Cells % 0.3 %; Platelet Count 100 10^3/cmm (157-399); Red Blood Count 2.74 10^6/uL (3.85-5.65); White Blood Count 6.92 10^3/uL (3.29-11.43)
[2025-07-07 17:27] LABS: Alanine Aminotransferase 11 U/L (0-41); Albumin Level 2.8 g/dL (3.5-5.2); Alkaline Phosphatase 34 U/L (40-130); Anion Gap 16.5 (5-19); Aspartate Amino Transferase 43 U/L (0-40); Blood Urea Nitrogen 74 mg/dL (8-23); Calcium 8.3 mg/dL (8.5-10.5); Carbon Dioxide 26 mmol/L (22-29); Chloride 98 mmol/L (98-107); Creatinine Clr Calc Pharmacy 28.2983; Globulin 3.5 g/dL (1.3-4.6); Glucose 83 mg/dL (65-115); Osmolality Calculated 307 mOsm/kg (285-295); Sodium 138 mmol/L (136-145); Total Protein 6.3 g/dL (6.6-8.7)
[2025-07-07 17:58] LABS: Potassium 2.5 mmol/L (3.5-5.1)
[2025-07-07] MEDS: heparin drip 25,000 UNIT/500 ML PREMIX 24.5 UNIT IV (18:19)
[2025-07-07] MEDS: potassium chloride premix 100 ML 25 MEQ IV (19:09)
--- NOTE | 2025-07-07 19:45 | PC.NURSE ---
Shift summary: Pt remains intubated and sedated. Versed remains infusing at 5mg/hr. Heparin remains infusing at same rate of 24.5 ml/hr. PTT has been in therapeutic range throughout shift. PICC placed into Left arm, site oozing, pressure dressing applied at time of insertion. It was looking good at end of shift, removed pressure dressing. then 15 minutes later seen blood leaing out of dressing , reapplied pressure dressing. Pt is also oozing some around peripheral IV sites. He has had brownish secreations draining from his mouth. He has not required any insullin at blood sugar checks. His eveig blood sugar was tredning low at 75, D10 bolus ordered a nd given. His potassium critical at end of shift, at 2.5. Dr notified potassium replacement and 1 unit of PRBC ordered. He has had multiple small loose/pasty BM. He has ad 2350 out in urine.
[2025-07-07] MEDS: potassium chloride oral liq 20 mEq/15 mL UDC 40 MEQ OG-TUBE (21:33)
--- NOTE | 2025-07-07 21:55 | PC.NURSE ---
Telephone consent for blood products obtained from patient's daughter, Trina and verified with second nurse Randi LEE
--- NOTE | 2025-07-07 21:57 | PC.NURSE ---
Dr. Bahena ordered 40 meq potassium to be given via OG tube instead of giving the second 40 me[address] IV bag that way he can receive it all now. Dr. Bahena also ordered to hold the 20 mg IV lasix and we will assess if he needs it after the unit of blood.
[2025-07-07] MEDS: chlorhexidine gluconate 4% Btl 118 mL 1 APPLIC TOPICAL (23:42)
[2025-07-08] VITALS (37 sets, daily range): BP systolic 85–120; BP diastolic 60–81; PULSE 69–84; RESP 14–20; TEMP 36.2–37.1; O2SAT 89–100
[2025-07-08 01:45] LABS: Partial Thromboplastin Time 51.8 SECONDS (23.9-36.7)
--- NOTE | 2025-07-08 01:50 | P.EN_ITS ---
Event Note Event Note: Severe hypokalemia and correction accordingly Event Notes Attestations Time Spent in Patient Care: I was reviewing patient's chart and found a reading of hypokalemia 3.2 which was yesterday at 1 AM although it was not ordered by me. Further review through labs and the assigned nurse revealed that also the nurse was not aware about this blood sample of 1 AM. It was later on revealed that 1 AM sample of blood was for troponins while the BMP sample was for the morning around 8 AM but an old sample of 1 AM was used for 8 AM labs therefore the 3.2 potassium reported at 1 AM which she was supposedly to be done at 8 AM. After discussing the current scenario with the component lab tech and assigned nurse, it was mentioned to report in order to improve the future care for patient's and for everyone. Potassium correction ongoing and stat order of magnesium also placed potassium resulted around 3.4 but it was mentioned slightly hemolysed that means rebeca actual might be low replacement with oral 40meq requested and to recheck all the labs around 6am after correction informed the assigned nurse Mg normal levels
[2025-07-08 02:04] LABS: Blood Urea Nitrogen 73 mg/dL (8-23); Calcium 8.5 mg/dL (8.5-10.5); Carbon Dioxide 26 mmol/L (22-29); Chloride 99 mmol/L (98-107); Creatinine Clr Calc Pharmacy 29.2416; Glucose 86 mg/dL (65-115); Magnesium 2.0 mg/dL (1.7-2.3); Osmolality Calculated 309 mOsm/kg (285-295); Sodium 139 mmol/L (136-145)
[2025-07-08 02:08] LABS: Anion Gap 17.4 (5-19); Potassium 3.4 mmol/L (3.5-5.1)
[2025-07-08] MEDS: heparin 5,000 unit/mL INJ 1 mL IVP (02:19)
--- NOTE | 2025-07-08 02:29 | PC.NURSE ---
Dr. Bahena notified that patient's potassium came back as 3.4, order received for 40meq Potassium via OG tube. Dr. Bahena would also like AM labs drawn at 6 am. Lab staff notified.
[2025-07-08] MEDS: potassium chloride oral liq 20 mEq/15 mL UDC 40 MEQ OG-TUBE (02:34)
[2025-07-08] MEDS: midazolam hcl 100 MG/100 ML BAG 6 MG IV (03:31)
[2025-07-08] MEDS: pantoprazole 40 mg SDV IVP (04:00)
[2025-07-08 04:09] LABS: ABG PCO2 38.9 mmHg (35-45); ABG PH Result 7.47 (7.35-7.45); Arterial Blood Gas Hematocrit 27.9 % (42-52); Blood Gas Allen Test Pos; Blood Gas Operator Identificat JDB; Blood Gas Sample Site Radial, right; Blood Gas Sample Type Arterial; Blood Gas Tidal Volume 0.50; HCO3 ABG 28.2 mmol/L (22-26); PEEP 10.0 cmH20; PO2 ABG 83.0 mmHg (80.0-100.0); PO2 FiO2 Ratio Arterial Blood 237
[2025-07-08 06:10] LABS: Hematocrit 28.8 % (37-53); Hemoglobin 8.50 g/dL (11.27-16.99); Mean Corpuscular HGB Conc 29.5 g/dL (30-55); Mean Corpuscular Hemoglobin 28.5 pg (27-33); Mean Corpuscular Volume 96.6 fl (82-101); Nucleated Red Blood Cells % 0.3 %; Platelet Count 96 10^3/cmm (157-399); Red Blood Count 2.98 10^6/uL (3.85-5.65); White Blood Count 6.03 10^3/uL (3.29-11.43)
[2025-07-08 06:21] LABS: Alanine Aminotransferase 13 U/L (0-41); Albumin Level 2.6 g/dL (3.5-5.2); Alkaline Phosphatase 33 U/L (40-130); Anion Gap 16.5 (5-19); Aspartate Amino Transferase 46 U/L (0-40); Blood Urea Nitrogen 69 mg/dL (8-23); Calcium 8.5 mg/dL (8.5-10.5); Carbon Dioxide 25 mmol/L (22-29); Chloride 102 mmol/L (98-107); Creatinine Clr Calc Pharmacy 28.7759; Globulin 3.6 g/dL (1.3-4.6); Glucose 83 mg/dL (65-115); Magnesium 1.9 mg/dL (1.7-2.3); Osmolality Calculated 309 mOsm/kg (285-295); Potassium 3.5 mmol/L (3.5-5.1); Sodium 140 mmol/L (136-145); Total Protein 6.2 g/dL (6.6-8.7)
[2025-07-08 06:24] LABS: Lactate (Lactic Acid level) 1.1 mmol/L (0.5-2.2)
[2025-07-08 06:34] LABS: NT Pro B Type Natriuretic Pept 11002 pg/mL (0-125); Procalcitonin 1.05 ng/mL (0-0.5)
--- NOTE | 2025-07-08 07:00 | XRR_ITS ---
PROCEDURE INFORMATION: Exam: XR Chest Exam date and time: 07/08/2025 8:58 AM Age: 70 years old Clinical indication: Shortness of breath; Prior surgery; Surgery date: 6+ months; Surgery type: Cabg, avr; Additional info: SOB TECHNIQUE: Imaging protocol: Radiologic exam of the chest. Views: 1 view. COMPARISON: CR XR chest 1V portable [id number] 07/07/2025 1:40 PM FINDINGS: Lungs: Stable opacity at the left lung base. Nearly resolved opacity on the right. Pleural spaces: Unremarkable. No pleural effusion. No pneumothorax. Heart/Mediastinum: See Vasculature finding. Vasculature: Cardiomegaly and uncoiling of the thoracic aorta. Bones/joints: Median sternotomy. Other findings: Stable life support lines. XR/XR chest 1V portable [id number] IMPRESSION: Resolving CHF. Persistent opacity at the left lung base.
[2025-07-08] MEDS: piperacillin-tazobactam 3.375 GM in sodium chloride 0.9% (plus) 50 ML IV (07:46)
--- NOTE | 2025-07-08 07:54 | USR_ITS ---
PROCEDURE INFORMATION: Exam: US Duplex Right Lower Extremity Veins, Limited Exam date and time: 07/08/2025 9:24 AM Age: 70 years old Clinical indication: Screening exam; Dvt TECHNIQUE: Imaging protocol: Real-time duplex ultrasound of the right extremity with 2-D tejeda scale, color Doppler flow and spectral waveform analysis including responses to compression and other maneuvers (when performed) with image documentation. Limited exam was focused on the right lower extremity veins. COMPARISON: No relevant prior studies available. FINDINGS: Right deep veins: Unremarkable. The common femoral, femoral, proximal profunda femoral and popliteal veins are patent without thrombus. Normal Doppler waveforms. Normal compressibility and/or augmentation response. Superficial veins: Greater saphenous vein at the saphenofemoral junction is patent without thrombus. Soft tissues: Unremarkable. US/[place] [id number] IMPRESSION: No evidence of deep vein thrombosis.
--- NOTE | 2025-07-08 09:03 | P.PN_ITS ---
Subjective 2 Subjective: The patient is remaining intubated. He is in the process of being extubated. His hemoglobin dropped down to 7.6 yesterday. He was given 1 unit of blood transfusion. Currently the hemoglobin is 8.5. Medications: Medication Review Details: Current Medications Albuterol Sulfate (Albuterol 2.5 Mg/0.5 Ml Neb) 2.5 mg INHALATION Q6H.RESP PRN PRN Reason: WHEEZING Aripiprazole (Aripiprazole 10 Mg Tablet) 5 mg PO BID [facility] Last Admin: 07/08/25 04:00 Dose: 5 mg Aspirin (Aspirin 81 Mg Chew Tablet) 81 mg OG-TUBE DAILY [facility] Last Admin: 07/08/25 04:00 Dose: 81 mg Atorvastatin Calcium (Atorvastatin 40 Mg Tablet) 40 mg PO QPM [facility] Last Admin: 07/07/25 18:25 Dose: 40 mg Chlorhexidine Gluconate (Chlorhexidine Gluconate 4% Btl 118 Ml) 1 applic TOPICAL PRN PRN PRN Reason: Bed Bath Last Admin: 07/07/25 23:42 Dose: 1 applic Fludrocortisone Acetate (Fludrocortisone 0.1 Mg Tablet) 0.1 mg PO DAILY [facility] Last Admin: 07/08/25 04:00 Dose: 0.1 mg Glucagon (Glucagon 1 Mg/Ml Kit 1 Ml) 1 mg IM ONCE PRN; Protocol PRN Reason: Adult Acute Hypoglycemia Nursing Prot. Heparin Sodium (Porcine) (Heparin 5,000 Unit/Ml Inj 1 Ml) 0 unit IVP PRN PRN; Protocol PRN Reason: Heparin Weight Based Protocol -Subsequent Bolus Last Admin: 07/08/25 02:19 Dose: 2,200 unit Heparin Sodium/Sodium Chloride (Heparin Drip) 25,000 unit in 500 mls @ 26.454 mls/hr IV CONT [facility]; Protocol Last Titration: 07/08/25 02:13 Dose: 12.02 unit/kg/hr, 26.5 mls/hr Midazolam HCl (Versed) 100 mg in 100 mls @ 0 mls/hr IV .Q0M JOSÉ; Protocol Last Admin: 07/08/25 03:31 Dose: 6 mg/hr, 6 mls/hr Dextrose (D5w) 500 mls @ 0 mls/hr IV ONCE PRN; Protocol PRN Reason: Adult Acute Hypoglycemia Prot Dextrose (D10w) 125 mls @ 750 mls/hr IV PRN PRN; Protocol PRN Reason: Adult Acute Hypoglycemia Nursing Protocol Last Infusion: 07/07/25 18:25 Dose: Infused Dextrose (D10w) 250 mls @ 1,000 mls/hr IV PRN PRN; Protocol PRN Reason: Adult Acute Hypoglycemia Nursing Protocol Piperacillin Sod/Tazobactam (Sod 3.375 gm/ Sodium Chloride) 50 mls @ 12.5 mls/hr IV Q12H [facility] Last Admin: 07/08/25 07:46 Dose: 12.5 mls/hr Norepinephrine Bitartrate (Levophed) 4 mg in 250 mls @ 0 mls/hr IV .Q0M JOSÉ; Protocol Insulin Human Lispro (Insulin Lispro 100 Unit/1 Ml) 0 unit SUBCUT WM&BEDTIME JOSÉ; Protocol Last Admin: 07/08/25 08:07 Dose: Not Given Levetiracetam (Levetiracetam 500 Mg Tablet) 500 mg OG-TUBE DAILY [facility] Last Admin: 07/08/25 04:00 Dose: 500 mg Ondansetron HCl (Ondansetron 2 Mg/Ml Sdv 2 Ml) 4 mg IVP Q6H PRN PRN Reason: NAUSEA AND VOMITING Pantoprazole Sodium (Pantoprazole 40 Mg Sdv) 40 mg IVP Q12H [facility] Last Admin: 07/08/25 04:00 Dose: 40 mg Senna (Sennosides 8.6 Mg Tablet) 17.2 mg PO BEDTIME JOS[facility] Last Admin: 07/07/25 21:14 Dose: Not Given Sodium Chloride (Sodium Chloride 0.9% 100 Ml Bag) 50 ml IV PRN PRN PRN Reason: Blood transfusion prime and flush Stop: 07/08/25 18:12 Sucralfate (Sucralfate 1 Gm Tablet) 1 gm PO Q6H JOS[facility] Last Admin: 07/08/25 08:07 Dose: 1 gm Tizanidine HCl (Tizanidine 4 Mg Tablet) 4 mg PO BEDTIME PRN PRN Reason: Muscle Spasticity Vancomycin HCl (Vancomycin 1,000 Mg Sdv (Pharmacy Mix)) 0 mg XX PRN PRN PRN Reason: Pharmacy to Dose Vitals/I&O/Wt Last Vital Signs Temp 98.8 F 07/08/25 04:07 Pulse 71 07/08/25 06:00 Resp 14 07/08/25 08:30 BP 89/64 07/08/25 06:00 Pulse Ox 100 07/08/25 08:30 O2 Del Method Mechanical Ventilation 07/07/25 19:15 O2 Flow Rate 4 07/06/25 18:29 FiO2 35 07/08/25 08:30 07/07/25 07/08/25 07/08/25 22:59 06:59 14:59 Intake Total 293.959 / 672.717 774.65 / 1447.367 Output Total 2350 / 2350 800 / 3150 Balance -2056.041 / -1677.283 -25.35 / -1702.633 Weight last 48 hrs Weight 242 lb Weight 249 lb 11.2 oz Weight 249 lb 11.2 oz Weight 243 lb Physical Exam 2 Narrative: GENERAL: The patient is intubated and sedated. Moving all extremities. HEENT: No significant pallor, icterus or lymphadenopathy.Oral cavity: There are no mucous membrane lesions. NECK: Trachea appears to be central. No masses noted. No JVD or thyromegaly appreciated. RESPIRATORY: Chest is symmetrical. No intercostals muscle retraction or any accessory muscle activation. There is no chest wall tenderness. Breath sounds are heard bilaterally. No rales or rhonchi heard. No evidence of any consolidation. BREASTS: Deferred. HEART: The heart sounds are normal. No S3 or S4. Ejection systolic murmur grade 4/6 in the aortic area. LV systolic murmur grade 3 or 6 in the left sternal border.. No pericardial rub ABDOMEN: No vessel pulsations or distention. No tenderness. No organomegaly appreciated. Bowel sounds are normally heard. : Deferred. RECTAL: Deferred. LYMPHATIC: No lymphadenopathy noted in the neck. EXTREMITIES: 2-3+ pitting edema both lower extremities. Superficial healing ulcers in the left leg. The peripheral pulses are felt in good volume and amplitude. Superficial healing ulcers in the left lower extremity MUSCULOSKELETAL: No acute joint deformities or swelling SKIN: There are no significant rashes or ecchymosis NEUROPSYCHIATRIC: The patient is alert and oriented x3. Appears to be in a good mood. No tremors or rigidity noted. Urinary Catheter Management: Salazar: Cath Placed During This Visit: yes Reason for Continuing Indwelling Catheter: Accurate Measurement of Urinary Output in Critically Ill Patients Urinary Catheter Date of Insertion: 07/06/25 Urinary Catheter Time of Insertion: 20:15 Data 07/08/25 05:59 07/08/25 08:24 Other Labs: Laboratory Last Values WBC 6.03 10^3/uL (3.29-11.43) 07/08/25 05:59 RBC 2.98 10^6/uL (3.85-5.65) L 07/08/25 05:59 Hgb 8.50 g/dL (11.27-16.99) L 07/08/25 05:59 Hct 28.8 % (37-53) L 07/08/25 05:59 MCV 96.6 fl (82-101) 07/08/25 05:59 MCH 28.5 pg (27-33) 07/08/25 05:59 MCHC 29.5 g/dL (30-55) L 07/08/25 05:59 RDW 21.3 % (12.1-15.1) H 07/08/25 05:59 Plt Count 96 10^3/cmm (157-399) L 07/08/25 05:59 MPV 10.4 fL (7.4-10.4) 07/08/25 05:59 Neut % (Auto) 77.9 % 07/08/25 05:59 Lymph % (Auto) 11.3 % 07/08/25 05:59 [place] % (Auto) 8.0 % 07/08/25 05:59 Eos % (Auto) 2.0 % 07/08/25 05:59 Baso % (Auto) 0.5 % 07/08/25 05:59 Neut # (Auto) 4.70 10^3/uL (1.8-7.7) 07/08/25 05:59 Lymph # (Auto) 0.7 10^3/uL (0.8-4.8) L 07/08/25 05:59 [place] # (Auto) 0.5 10^3/uL (0.2-0.9) 07/08/25 05:59 Eos # (Auto) 0.1 10^3/uL (0.0-0.8) 07/08/25 05:59 Baso # (Auto) 0.0 10^3/uL (0.0-0.1) 07/08/25 05:59 Nucleated RBC % (auto) 0.3 % 07/08/25 05:59 Nucleated RBCs # 0.0 /100WBC 07/08/25 05:59 APTT 51.8 SECONDS (23.9-36.7) H 07/08/25 01:14 Specimen Type Arterial 07/08/25 03:55 Sample Site Radial, right 07/08/25 03:55 ABG pH 7.47 (7.35-7.45) H 07/08/25 03:55 ABG pCO2 38.9 mmHg (35-45) 07/08/25 03:55 ABG pO2 83.0 mmHg (80.0-100.0) 07/08/25 03:55 ABG PO2/FiO2 Ratio 237 07/08/25 03:55 ABG HCO3 28.2 mmol/L (22-26) H 07/08/25 03:55 ABG O2 Saturation 99.0 07/07/25 05:27 ABG Base Excess 4.2 mmol/L (-2.0-2.0) H 07/08/25 03:55 Anthony Test Pos 07/08/25 03:55 A-a O2 Gradient 16.3 mmHg (5-10) H 07/07/25 05:27 Hematocrit 27.9 % (42-52) L 07/08/25 03:55 Hgb O2 Saturation 96.1 % (95-100) 07/07/25 05:27 Carboxyhemoglobin 2.0 %THgb (0.4-20.1) 07/07/25 05:27 Methemoglobin 1.0 % (0.4-1.5) 07/07/25 05:27 Total Hemoglobin 9.1 g/dL (14-18) L 07/07/25 05:27 Sodium 137.0 mmol/L (131-143) 07/07/25 05:27 Potassium 2.9 mmol/L (3.5-5.0) L 07/07/25 05:27 Glucose 112.0 mg/dL (70-115) 07/07/25 05:27 Ionized Calcium 1.1 mmol/L (1.1-1.4) 07/07/25 05:27 O2 Delivery Device Vent 07/08/25 03:55 O2 Liters/Min 5.0 % 07/06/25 19:23 FiO2 35.0 % 07/08/25 03:55 Tidal Volume 0.50 07/08/25 03:55 PEEP 10.0 cmH20 07/08/25 03:55 Sight Effects Specialist ID [email or web address] 07/08/25 03:55 Sodium 140 mmol/L (136-145) 07/08/25 05:59 Potassium 3.5 mmol/L (3.5-5.1) 07/08/25 05:59 Chloride 102 mmol/L (98-107) 07/08/25 05:59 Carbon Dioxide 25 mmol/L (22-29) 07/08/25 05:59 Anion Gap 16.5 (5-19) 07/08/25 05:59 BUN 69 mg/dL (8-23) H 07/08/25 05:59 Creatinine 3.0 mg/dL (0.7-1.2) H 07/08/25 05:59 GFR Calculation 20.9 mL/min (90-130) L 07/08/25 05:59 Glucose 83 mg/dL (65-115) 07/08/25 05:59 POC Glucose 86 mg/dL (70-110) 07/08/25 08:02 Calculated Osmolality 309 mOsm/kg (285-295) H 07/08/25 05:59 Lactic Acid 1.2 mmol/L (0.5-2.2) 07/07/25 10:46 Lactic Acid (Sepsis) 1.9 mmol/L (0.5-2.2) 07/06/25 21:40 Lactate 1.1 mmol/L (0.5-2.2) 07/08/25 05:59 Calcium 8.5 mg/dL (8.5-10.5) 07/08/25 05:59 Phosphorus 3.7 mg/dL (2.5-4.5) 07/08/25 05:59 Magnesium 1.9 mg/dL (1.7-2.3) 07/08/25 05:59 Total Bilirubin 1.6 mg/dL (0.15-1.2) H 07/08/25 05:59 AST 46 U/L (0-40) H 07/08/25 05:59 ALT 13 U/L (0-41) 07/08/25 05:59 Alkaline Phosphatase 33 U/L (40-130) L 07/08/25 05:59 Creatine Kinase 128 U/L (39-308) 07/07/25 01:01 Troponin T Baseline 242 ng/L (0-15) H* 07/06/25 19:08 Troponin T 120 Minute 281.4 ng/L (0-15) H 07/06/25 21:40 Delta Troponin T 39.4 ABS# (0-10) H* 07/06/25 21:40 Troponin T Hi Sens 6Hr 285.9 ng/L (0-15) H 07/07/25 01:01 Troponin T Hi Sens 6Hr Delta 43.9 ng/L (0-12) H* 07/07/25 01:01 C-Reactive Protein 39.6 mg/L (0.0-4.9) H 07/08/25 05:59 NT-Pro-B Natriuret Pep 41253 pg/mL (0-125) H 07/08/25 05:59 Total Protein 6.2 g/dL (6.6-8.7) L 07/08/25 05:59 Albumin 2.6 g/dL (3.5-5.2) L 07/08/25 05:59 Globulin 3.6 g/dL (1.3-4.6) 07/08/25 05:59 Procalcitonin 1.05 ng/mL (0-0.5) H 07/08/25 05:59 TSH 3.10 uIU/mL (0.27-4.20) 07/06/25 21:40 Urine Color Dark yellow (Yellow) A 07/06/25 20:41 Urine Appearance Cloudy (CLEAR) A 07/06/25 20:41 Urine pH 5.0 (5-7) 07/06/25 20:41 Ur Specific [place] 1.016 (1.005-1.030) 07/06/25 20: Urine Protein 2+ (Negative) A 07/06/25 20: Urine Glucose (UA) Trace (Normal) H 07/06/25 20:41 Urine Ketones Negative (Negative) 07/06/25 20:41 Urine Blood Negative (Negative) 07/06/25 20:41 Urine Nitrate Negative (Negative) 07/06/25 20:41 Urine Bilirubin 1+ (Negative) H 07/06/25 20:41 Urine Urobilinogen 1.0 mg/dL (Negative) 07/06/25 20:41 Ur Leukocyte Esterase Trace (Negative) A 07/06/25 20:41 Urine RBC 6-10 /hpf (0-2) 07/06/25 20:41 Urine WBC 0-5 /hpf (0-5) 07/06/25 20:41 Ur Squamous Epith Cells 0-5 /hpf (0-5) 07/06/25 20:41 Amorphous Sediment Not Reportable 07/06/25 20:41 Urine Bacteria None seen /hpf (NONE) 07/06/25 20:41 Hyaline Casts 69.07 /lpf 07/06/25 20:41 Urine Mucus 2+ /hpf 07/06/25 20:41 Nasal MRSA (PCR) Not detected (Negative) 07/07/25 02:30 Vancomycin Trough 13.5 ug/mL (10-15) 07/08/25 01:14 Adenovirus (PCR) Not detected (NOT DETECT) 07/07/25 02:30 C. pneumoniae DNA (PCR) Not detected (NOT DETECT) 07/07/25 02:30 Coronavirus 229E (PCR) Not detected (NOT DETECT) 07/07/25 02:30 Human Metapneumovir PCR Not detected (NOT DETECT) 07/07/25 02:30 Influenza A (H1) PCR Not detected (NOT DETECT) 07/07/25 02:30 Influenza A (PCR) Negative (Negative) 07/06/25 19:14 Influ A (H1/09) PCR Not detected (NOT DETECT) 07/07/25 02:30 Influenza A (H3) PCR Not detected (NOT DETECT) 07/07/25 02:30 Influenza Type A (PCR) Not detected (NOT DETECT) 07/07/25 02:30 Influenza Type B (PCR) Not detected (NOT DETECT) 07/07/25 02:30 M. pneumoniae (PCR) Not detected (NOT DETECT) 07/07/25 02:30 Parainfluenza 1 (PCR) Not detected (NOT DETECT) 07/07/25 02:30 Parainfluenza 2 (PCR) Not detected (NOT DETECT) 07/07/25 02:30 Parainfluenza 3 (PCR) Not detected (NOT DETECT) 07/07/25 02:30 Parainfluenza 4 (PCR) Not detected (NOT DETECT) 07/07/25 02:30 RSV (PCR) Negative (Negative) 07/06/25 19:14 RSV Type A (PCR) Not detected (NOT DETECT) 07/07/25 02:30 RSV Type B (PCR) Not detected (NOT DETECT) 07/07/25 02:30 Entero/Rhino (PCR) Not detected (NOT DETECT) 07/07/25 02:30 SARS-CoV-2 (PCR) Not detected (NOT DETECT) 07/07/25 02:30 Blood Type O Positive 07/07/25 16:43 Rho(D) Type Rh positive 07/07/25 16:43 Antibody Screen Negative 07/07/25 16:43 Crossmatch See Detail 07/07/25 16:43 Micro: Microbiology 07/07/25 08:10 Gram Stain - Final Sputum - Endotracheal Tube Aspirate A&P Assessment and plan 1. Acute on chronic systolic heart failure: Patient has repeated decompensated heart failure, requiring multiple ER visits/hospital admissions. Heart failure seems to be getting compensated. The severe anemia, worsening kidney function, severe aortic valve stenosis, LV systolic dysfunction, atrial arrhythmia, etc. are contributing factors. 2. Aortic valve stenosis, etiology of cardiac valve disease unspecified: I reviewed the patient the echocardiogram from the previous admission. He had a peak velocity of 4.7 m/s with an aortic valve area by VTI of 0.67 and a valve index of 0.25. The JONATHAN also was reviewed. It appears to me that the patient has severe aortic valve stenosis. This might be the cause for the recurrent heart failure and worsening kidney function. 3. Nonischemic cardiomyopathy: The latest LV ejection fraction was around 30% by echocardiogram. Patient had to be taken off the Entresto because of the worsening kidney function. Will continue to optimize the afterload reducing agents. 4. Presence of permanent cardiac pacemaker: The pacing function appears to be appropriate. Will continue on the current management. 5. Acute kidney injury superimposed on chronic kidney disease: The LV systolic dysfunction coupled with the severe aortic valve stenosis causing low output failure may be a major contributing factor causing the worsening kidney function. 6. Primary hypertension: Currently normotensive. May continue other current measures. 7. Chronic atrial fibrillation: Patient seem to have chronic intermittent atrial fibrillation. Currently with a controlled ventricular response rate. He is currently on IV heparin. 8. Mixed hyperlipidemia: Continue the current medications. 9. Pulmonary HTN: Most likely is a group 2 pulmonary hypertension. Will be focusing more on the treatment of heart failure and LV dysfunction. 10. Venous stasis dermatitis of both lower extremities: Continue on the current measures. 11. Type 2 diabetes mellitus without complication, without long-term current use of insulin: Plan: Other problems are Elevated troponin T, most likely type II TN Hypokalemia COPD/sleep apnea Anemia requiring blood transfusion, etiology presumed The patient has a severe aortic valve stenosis is a major contributing factor for his recurrent CHF and hospital admissions. He may benefit from a redo valve surgery possible TAVR. I discussed this with the Dr Clarke at the [facility]. Dr. Clarke is willing to accept this patient for further evaluation and management. Patient has multiple comorbidities, which may complicate the picture. The source of bleeding is not clear at this time. Discussed with Dr. Matthews who concurred with this plan I I discussed with Anjali Anne, the patient's daughter on his condition and the management options. She is very much agreeable for him to be transferred to [facility] for possible valve intervention. She understands that the patient carries a higher risk, in view of his multiple comorbidities. PDMP PDMP Reviewed: Not Reviewed Attestations 2 Medical Necessity Statement*: Possible transfer to [facility] in [place] Coding Level of Care Code 25545 Diagnoses Acute on chronic systolic heart failure I50.23 Aortic valve stenosis, etiology of cardiac valve disease unspecified I35.0 Cardiac valve disease etiology: etiology unspecified Nonischemic cardiomyopathy I42.8 Presence of permanent cardiac pacemaker Z95.0 Acute kidney injury superimposed on chronic kidney disease N17.9; N18.9 Primary hypertension I10 Hypertension type: primary hypertension Chronic atrial fibrillation I48.20 Atrial fibrillation type: unspecified chronic Mixed hyperlipidemia E78.2 Pulmonary HTN I27.20 Venous stasis dermatitis of both lower extremities I87.2 Type 2 diabetes mellitus without complication, without long-term current use of insulin E11.9 Diabetes mellitus complication status: without complication Diabetes mellitus assisted insulin use: without pole classifier use
[2025-07-08 09:14] LABS: Anion Gap 15.2 (5-19); Blood Urea Nitrogen 68 mg/dL (8-23); Calcium 8.6 mg/dL (8.5-10.5); Carbon Dioxide 24 mmol/L (22-29); Chloride 102 mmol/L (98-107); Creatinine Clr Calc Pharmacy 29.7681; Glucose 79 mg/dL (65-115); Osmolality Calculated 305 mOsm/kg (285-295); Potassium 3.2 mmol/L (3.5-5.1); Sodium 138 mmol/L (136-145)
[2025-07-08 09:19] LABS: Partial Thromboplastin Time 79.8 SECONDS (23.9-36.7)
[2025-07-08] MEDS: dexmedeTOMIDine 0.9 % NaCL 400 MCG/100 ML PREMIX IV (09:45)
[2025-07-08] MEDS: albumin 25 G/100 ML BAG 60 G IV (10:16)
[2025-07-08] MEDS: FUROsemide 10 mg/mL SDV 4mL 40 MG IVP (10:19)
[2025-07-08] MEDS: potassium phosphate (mEq K) 40 MEQ in sodium chloride 0.9% (100 ml) 100 ML 27.25 MEQ IV (10:24)
[2025-07-08 10:29] LABS: Troponin T (5th) Once 242 ng/L (0-15)
--- NOTE | 2025-07-08 13:05 | P.PN_ITS ---
Subjective 2 Subjective: - Patient was examined this morning - Overnight remains afebrile, normotensi ve, not requiring pressors 35% FiO2, tidal volume 500, PEEP of 8 - On Versed drip, he does awaken, can fo llow some commands - No family numbers at bedside - Overnight did require potassium replac ement therapy, did require 1 unit PRBC - I did discuss the case with Dr. Scott , Dr. Scott is concerned about patient's aortic valve stenosis, upon his review of the case he felt that patient had severe aortic valve stenosis of bioprosthetic valve, with his EF of 30% and his cardiorenal syndrome, Dr. Scott is worried about the severe aortic valve stenosis playing a significant role in terms of his shortness of breath and recurrent hospitalizations - Dr. Scott discussed the case with Dr. Clarke in [place], discussed redo valve surgery possible TAVR, Dr. Clarke has a step to the case - Dr. Scott spoke to patient's family -Dr. Scott recommends transfer to [facility] - I also spoke to patient's daughter, Claritza fernandez, discussed patient's acute hypoxic respiratory failure with acute respiratory distress initially multifactorial from sepsis, pneumonia, acute systolic CHF, with concerns for severe aortic valve stenosis. Overall his clinical condition has improved, remains off pressors, good urine output, doing well on the ventilator, down to 35% FiO2, pulmonary consulted, discussed Dr. Scott's recommendations, his consultation with Dr. Clarke in [facility] - Discussed risk and benefits of transfe r, she voiced understanding, all questions answered, shared decision making, agreed to proceed - Patient was reexamined, remains on 35% for 2, PEEP of 8, tidal volume 500, no pressor requirements, has had about 500 mL of urine output since I saw him last with Lasix, receiving potassium replacement therapy, - Spoke to [facility] transfer line, spoke to plate straightener , who will prefer patient to remain intubated for transfer - Confirmed with Dr. Rodriguez keeping rena ent intubated, for transfer to [facility], she agreed - Patient be transferred to [facility], to ICU, intubated on mechanical ventilation Vitals/I&O/Wt Last Vital Signs Temp 97.5 F L 07/08/25 08:30 Pulse 71 07/08/25 09:00 Resp 14 07/08/25 11:07 BP 94/64 07/08/25 09:00 Pulse Ox 95 07/08/25 11:07 O2 Del Method Mechanical Ventilation 07/08/25 08:30 O2 Flow Rate 4 07/06/25 18:29 FiO2 35 07/08/25 11:07 07/07/25 07/08/25 07/08/25 22:59 06:59 14:59 Intake Total 293.959 / 672.717 774.65 / 1447.367 240.949 / 240.949 Output Total 2350 / 2350 800 / 3150 350 / 350 Balance -2056.041 / -1677.283 -25.35 / -1702.633 -109.051 / -109.051 Weight last 48 hrs Weight 109.769 kg Weight 113.262 kg Weight 113.262 kg Weight 110.223 kg Physical Exam 2 Const: COMMON NORMALS: no acute distress ORIENTATION/CONSCIOUSNESS: Yes awake; not oriented to person, not oriented to place and not oriented to time Eye: COMMON NORMALS: Equal, round and reactive pupils present PUPIL: Yes Equal, round and reactive pupils present Resp: COMMON NORMALS: normal respiratory effort, No retractions, No use of accessory muscles and clear to auscultation bilaterally AUSCULTATION: clear to auscultation bilaterally Cardio: COMMON NORMALS: regular rate, regular rhythm, S1 normal heart sound present and S2 normal heart sound present RATE: regular rate RHYTHM: r egular rhythm HEART SOUNDS: S1 normal heart sound present and S2 normal heart sound present GI: COMMON NORMALS: Normal to inspection, nondistended, normoactive bowel sounds present and non-tender Extremity: COMMON NORMALS: no pedal edema Neuro: SENSORIUM/ORIENTATION: No oriented to person, No oriented to place and No oriented to time Urinary Catheter Management: Salazar: Cath Placed During This Visit: yes Reason for Continuing Indwelling Catheter: Accurate Measurement of Urinary Output in Critically Ill Patients Urinary Catheter Date of Insertion: 07/06/25 Urinary Catheter Time of Insertion: 20:15 Data 07/08/25 05:59 07/08/25 08:24 Micro: Microbiology 07/07/25 08:10 Gram Stain - Final Sputum - Endotracheal Tube Aspirate Sputum Culture - Preliminary 07/07/25 02:30 Urine Culture - Preliminary Urine Catheterized A&P Assessment and plan 1. Acute on chronic systolic heart failure: 2. Aortic valve stenosis, etiology of cardiac valve disease unspecified: 3. Nonischemic cardiomyopathy: 4. Presence of permanent cardiac pacemaker: 5. Acute kidney injury superimposed on chronic kidney disease: 6. Primary hypertension: 7. Chronic atrial fibrillation: 8. Mixed hyperlipidemia: Patient on fenofibrate and statin To resume after reconciliation 9. Pulmonary HTN: 10. Venous stasis dermatitis of both lower extremities: Compression stockings and leg elevation 11. Type 2 diabetes mellitus without complication, without long-term current use of insulin: 12. Acute hypoxemic respiratory failure: 13. Acute on chronic systolic (congestive) heart failure: 14. Sepsis: 15. Non-ST elevation LA (NSTEMI): 16. Persistent atrial fibrillation: 17. S/P aortic valve replacement with bioprosthetic valve: 18. Diabetes mellitus with diabetic neuropathy: Insulin sliding scale 19. Hx of seizure disorder: Home medication reviewed and reconciled, patient on Keppra 500 daily and to initiate 20. Pulmonary embolism: 21. DDD (degenerative disc disease), lumbosacral: Plan: Acute hypoxic respiratory failure -Multifactorial - Secondary to systolic CHF exacerbation - Secondary to pneumonia -With severe aortic valve stenosis Plan -Pulmonary consulted -intubated, sedated mechanical ventilation - Versed for sedation - Vancomycin - Zosyn - Blood cultures - Sputum cultures severe aortic valve stenosis - The bioprosthetic valve at the aortic position appears to be thickened with some calcification.trace to mild aortic valve regurgitation. Severe low gradient aortic valve stenosis, mean gradient 20.7 mmHg, DESIRE 0.89 cm squared Plan: -with recurrent hypoxic respiratory failure - Recurrent hospitalization - Cardiology consulted Dr. Vince Wilson, recommend transfer to [facility] NSTEMI -Type I versus type II NSTEMI CONCLUSIONS Mildly dilated left ventricle. Severe diffuse hypokinesia of the septum and anteroseptal segments with slightly dyskinetic apex. LV ejection fraction around 35%.Grade III/IV diastolic dysfunction (restrictive filling pattern), severely elevated filling pressures. Normal RV size with the slightly diminished ejection fraction Severely increased right atrial size. Catheter/pacemaker wire in the right atrial cavity. Severely increased left atrial size. Catheter/pacemaker wire in the right ventricular cavity. Thickened mitral valve. Moderate mitral annular calcification. At least moderate mitral regurgitation The bioprosthetic valve at the aortic position appears to be thickened with some calcification.trace to mild aortic valve regurgitation. Severe low gradient aortic valve stenosis, mean gradient 20.7 mmHg, DESIRE 0.89 cm squared. Mild tricuspid valve regurgitation. Estimated pulmonary artery peak systolic pressure 48 mmHg There is no pericardial effusion. Compared to the study from 06/24/2025, the aortic valve stenosis appears to be less severe Plan - Aspirin, statin - Heparin drip - Cardiology consulted History of bioprosthetic aortic valve, as above Sepsis, septic shock, resolved - PICC line placed - Maintain MAP greater than 65 Acute anemia -Status post 1 unit PRBC - Protonix, Carafate - Transfuse hemoglobin if less than 7 Thrombocytopenia Metabolic acidosis - Secondary to acute renal failure, - Secondary to sepsis ARUNA on CKD, creatinine improved to 2.9 - Secondary to sepsis, - Secondary to renal failure - Component of cardiorenal syndrome with severe aortic valve stenosis as above - Monitor renal function Full code - Heparin drip for DVT prophylaxis PDMP PDMP Reviewed: Not Reviewed Attestations 2 Medical Necessity Statement*: Patient requires hospitalization for acute hypoxic respiratory failure secondary to CHF, NSTEMI, severe aortic valve stenosis Coding Level of Care Code Critical Care >/= 30 minutes Critical care time (in minutes): 45 The high probability of a clinically significant, sudden or life threatening deterioration, as referenced in this documentation, required my full and direct attention, intervention and personal management. The critical care time shown is in addition to time spent performing any reported separately billable procedures and includes the following: [x] Data and vital sign review and interpretation [x ] Patient assessment, examination and intervention [x] Medication orders and management [x] Patient/Family updates as able [x] Care Coordination and Documentation. Diagnoses Acute on chronic systolic heart failure I50.23 Aortic valve stenosis, etiology of cardiac valve disease unspecified I35.0 Cardiac valve disease etiology: etiology unspecified Nonischemic cardiomyopathy I42.8 Presence of permanent cardiac pacemaker Z95.0 Acute kidney injury superimposed on chronic kidney disease N17.9; N18.9 Primary hypertension I10 Hypertension type: primary hypertension Chronic atrial fibrillation I48.20 Atrial fibrillation type: unspecified chronic Mixed hyperlipidemia E78.2 Pulmonary HTN I27.20 Venous stasis dermatitis of both lower extremities I87.2 Type 2 diabetes mellitus without complication, without long-term current use of insulin E11.9 Diabetes mellitus long term care phlebotomist insulin use: without long term care phlebotomist use Diabetes mellitus complication status: without complication Acute hypoxemic respiratory failure J96.01 Acute on chronic systolic (congestive) heart failure I50.23 Sepsis A41.9 Non-ST elevation LA (NSTEMI) I21.4 Persistent atrial fibrillation I48.19 S/P aortic valve replacement with bioprosthetic valve Z95.3 Diabetes mellitus with diabetic neuropathy E11.40 Hx of seizure disorder Z86.69 Pulmonary embolism I26.99 DDD (degenerative disc disease), lumbosacral M51.379 Sepsis Event Note Evaluation Current stage of sepsis: sepsis Possible source: pulmonary Focused Exam Vital Signs Temp Pulse Resp BP Pulse Ox O2 Del Method FiO2 07/08/25 11:07 14 95 35 07/08/25 09:00 71 94/64 100 07/08/25 08:30 97.5 F L 70 16 94/66 98 Mechanical Ventilation 35 07/08/25 08:30 14 100 35 07/08/25 08:00 73 85/61 99 07/08/25 07:30 70 93/70 100 07/08/25 07:00 70 94/64 99 07/08/25 06:30 70 89/65 100 07/08/25 06:00 71 89/64 100 07/08/25 05:55 70 07/08/25 05:30 72 85/62 100 07/08/25 05:00 70 86/60 100 07/08/25 04:30 70 96/65 99 07/08/25 04:07 98.8 F 07/08/25 04:00 72 90/64 99 07/08/25 03:56 20 H 99 35 07/08/25 03:30 84 88/62 100 07/08/25 03:00 71 91/60 100 07/08/25 02:30 70 97/67 100 07/08/25 02:12 70 92/62 99 07/08/25 01:30 70 91/61 100 Respiratory exam: Present wheezes Capillary refill: > 3 Seconds Peripheral pulse strength: 2+ Slightly Diminished Peripheral pulse location: Pedal Date exam was performed: 07/08/25 Time exam was performed: 13:41 Problem List 1. Acute on chronic systolic heart failure: Status: Acute 2. Aortic valve stenosis, etiology of cardiac valve disease unspecified: Status: Acute 3. Nonischemic cardiomyopathy: Status: Acute 4. Presence of permanent cardiac pacemaker: Status: Acute 5. Acute kidney injury superimposed on chronic kidney disease: Status: Acute 6. Primary hypertension: Status: Chronic 7. Chronic atrial fibrillation: Status: Acute 8. Mixed hyperlipidemia: Status: Acute 9. Pulmonary HTN: Status: Acute 10. Venous stasis dermatitis of both lower extremities: Status: Acute 11. Type 2 diabetes mellitus without complication, without long-term current use of insulin: Status: Chronic 12. Acute hypoxemic respiratory failure: Status: Acute 13. Acute on chronic systolic (congestive) heart failure: Status: Acute 14. Sepsis: Status: Acute 15. Non-ST elevation LA (NSTEMI): Status: Acute 16. Persistent atrial fibrillation: Status: Acute 17. S/P aortic valve replacement with bioprosthetic valve: Status: Acute 18. Diabetes mellitus with diabetic neuropathy: Status: Acute 19. Hx of seizure disorder: Status: Acute 20. Pulmonary embolism: Status: Acute 21. DDD (degenerative disc disease), lumbosacral: Status: Chronic
[2025-07-08] MEDS: heparin drip 25,000 UNIT/500 ML PREMIX 24.5 UNIT IV (13:21)
--- NOTE | 2025-07-08 13:42 | PM.TDS ---
Transfer Summary Providers Date of Admission: 07/06/25 22:54 Date of Discharge/Transfer: 07/08/25 Attending Provider at Admission: Poncho Bahena MD Attending Provider at Transfer: Josias Matthews MD Primary Care Provider: BELLA Bahena Transfer Plans: Anticipated date of transfer: 07/08/25. Diagnoses at Discharge Discharge Diagnosis 1. Acute on chronic systolic heart failure: 2. Aortic valve stenosis, etiology of cardiac valve disease unspecified: 3. Nonischemic cardiomyopathy: 4. Presence of permanent cardiac pacemaker: 5. Acute kidney injury superimposed on chronic kidney disease: 6. Primary hypertension: 7. Chronic atrial fibrillation: 8. Mixed hyperlipidemia: 9. Pulmonary HTN: 10. Venous stasis dermatitis of both lower extremities: 11. Type 2 diabetes mellitus without complication, without long-term current use of insulin: 12. Acute hypoxemic respiratory failure: 13. Acute on chronic systolic (congestive) heart failure: 14. Sepsis: 15. Non-ST elevation [place] (NSTEMI): 16. Persistent atrial fibrillation: 17. S/P aortic valve replacement with bioprosthetic valve: 18. Diabetes mellitus with diabetic neuropathy: 19. Hx of seizure disorder: 20. Acute pulmonary embolism, unspecified pulmonary embolism type, unspecified whether acute cor pulmonale present: 21. DDD (degenerative disc disease), lumbosacral: Reason for Visit Reason for Visit breathing trouble Hospital Course Hospital Course This is a 70-year-old male with past medical history of systolic CHF, history of bioprosthetic aortic valve replacement, history of wound on right leg, atrial fibrillation on Eliquis, pulmonary hypertension, obstructive sleep apnea, type 2 diabetes who presents [facility] for shortness of breath Patient was admitted to [facility] for acute hypoxic respiratory failure with acute respiratory distress, intubated, placed on mechanical ventilation, etiology multifactorial, from pneumonia, fluid overload/pulm edema from systolic CHF, severe aortic valve stenosis. Patient was monitored as inpatient, pulmonary consulted, cardiology consulted, received broad-spectrum antibiotic therapy, was intermittently on Levophed, diuretic therapy and overall clinically monitored. For NSTEMI history of atrial fibrillation, transition to heparin drip. Patient remains afebrile, MAP around 65, 35% FiO2, tidal volume 500, PEEP of 8, on 6 of Levophed, can follow some commands, urine output 4050, blood cultures so far no growth, sputum cultures so far no growth. After consultation with cardiology and pulmonary due to concerns severe aortic valve stenosis with a bioprosthetic valve, patient was transferred to [facility] for evaluation for CT surgery under Dr. Clarke. He did receive 1 unit of blood 07/08/2025. Required potassium replacement therapy. Septic shock secondary to pneumonia, MAP is around 65, has not required Levophed today so far. Acute hypoxic respiratory failure -Multifactorial - Secondary to systolic CHF exacerbation - Secondary to pneumonia -With severe aortic valve stenosis Plan -Pulmonary consulted -intubated, sedated mechanical ventilation - Versed for sedation - Vancomycin - Zosyn - Blood cultures - Sputum cultures severe aortic valve stenosis - The bioprosthetic valve at the aortic position appears to be thickened with some calcification.trace to mild aortic valve regurgitation. Severe low gradient aortic valve stenosis, mean gradient 20.7 mmHg, DESIRE 0.89 cm squared Plan: -with recurrent hypoxic respiratory failure - Recurrent hospitalization - Cardiology consulted Dr. Clarke [facility], recommend transfer to [facility] NSTEMI -Type I versus type II NSTEMI CONCLUSIONS Mildly dilated left ventricle. Severe diffuse hypokinesia of the septum and anteroseptal segments with slightly dyskinetic apex. LV ejection fraction around 35%.Grade III/IV diastolic dysfunction (restrictive filling pattern), severely elevated filling pressures. Normal RV size with the slightly diminished ejection fraction Severely increased right atrial size. Catheter/pacemaker wire in the right atrial cavity. Severely increased left atrial size. Catheter/pacemaker wire in the right ventricular cavity. Thickened mitral valve. Moderate mitral annular calcification. At least moderate mitral regurgitation The bioprosthetic valve at the aortic position appears to be thickened with some calcification.trace to mild aortic valve regurgitation. Severe low gradient aortic valve stenosis, mean gradient 20.7 mmHg, DESIRE 0.89 cm squared. Mild tricuspid valve regurgitation. Estimated pulmonary artery peak systolic pressure 48 mmHg There is no pericardial effusion. Compared to the study from 06/24/2025, the aortic valve stenosis appears to be less severe Plan - Aspirin, statin - Heparin drip - Cardiology consulted History of bioprosthetic aortic valve, as above Sepsis, septic shock, resolved - PICC line placed - Maintain MAP greater than 65 Acute anemia -Status post 1 unit PRBC - Protonix, Carafate - Transfuse hemoglobin if less than 7 Thrombocytopenia Metabolic acidosis - Secondary to acute renal failure, - Secondary to sepsis ARUNA on CKD, creatinine improved to 2.9 - Secondary to sepsis, - Secondary to renal failure - Component of cardiorenal syndrome with severe aortic valve stenosis as above - Monitor renal function Full code - Heparin drip for DVT prophylaxis Physical Exam Const: COMMON NORMALS: no acute distress OTHER: Intubated, sedated on mechanical ventilation Resp: COMMON NORMALS: normal respiratory effort, No retractions, No use of accessory muscles and clear to auscultation bilaterally AUSCULTATION: clear to auscultation bilaterally Cardio: COMMON NORMALS: regular rate, regular rhythm, S1 normal heart sound present and S2 normal heart sound present RATE: regular rate RHYTHM: regular rhythm HEART SOUNDS: S1 normal heart sound present and S2 normal heart sound present GI: COMMON NORMALS: Normal to inspection, nondistended, normoactive bowel sounds present and non-tender Extremity: COMMON NORMALS: no pedal edema Psych: COMMON NORMALS: mental status grossly normal Skin: NARRATIVE SKIN EXAM: Wound right lower extremity, wound care Urinary Catheter Management: Salazar: Cath Placed During This Visit: yes Reason for Continuing Indwelling Catheter: Accurate Measurement of Urinary Output in Critically Ill Patients Urinary Catheter Date of Insertion: 07/06/25 Urinary Catheter Time of Insertion: 20:15 TS Data Studies Completed and Pending Pending at discharge Category Date Time Status Arterial Blood Gas W/O Coox AM LABS Lab 07/09/25 04:00 Ordered Arterial Blood Gas W/O Coox AM LABS Lab 07/10/25 04:00 Ordered Blood Culture Stat Lab 07/06/25 19:10 Received C Reactive Protein AM LABS Lab 07/09/25 04:00 Ordered C Reactive Protein AM LABS Lab 07/10/25 04:00 Ordered Complete Blood Count w/Auto AM LABS Lab 07/09/25 04:00 Ordered Complete Blood Count w/Auto AM LABS Lab 07/10/25 04:00 Ordered Comprehensive Metabolic Panel AM LABS Lab 07/09/25 04:00 Ordered Comprehensive Metabolic Panel AM LABS Lab 07/10/25 04:00 Ordered Lactate (Lactic Acid level) AM LABS Lab 07/09/25 04:00 Ordered Lactate (Lactic Acid level) AM LABS Lab 07/10/25 04:00 Ordered Magnesium AM LABS Lab 07/09/25 04:00 Ordered Magnesium AM LABS Lab 07/10/25 04:00 Ordered NT Pro B Type Natriuretic Pept QAM Lab 07/09/25 06:00 Ordered NT Pro B Type Natriuretic Pept QAM Lab 07/10/25 06:00 Ordered PTT [Partial Thromboplastin Time] Timed Lab 07/08/25 16:00 Ordered Phosphorus AM LABS Lab 07/09/25 04:00 Ordered Phosphorus AM LABS Lab 07/10/25 04:00 Ordered Platelet Count Q2D Lab 07/10/25 04:00 Ordered Procalcitonin AM LABS Lab 07/09/25 04:00 Ordered Procalcitonin AM LABS Lab 07/10/25 04:00 Ordered Sputum Culture and Gram Stain Stat Lab 07/07/25 08:10 Results Urine Culture Stat Lab 07/07/25 02:30 Results Vancomycin Trough Timed Lab 07/09/25 09:00 Ordered Completed Studies During Hospitalization Category Date Time Status CT PE [CT Angio Chest + Abdomen Pelvis w/ contrast; Cat Scan 07/06/25 21:20 Completed [id number] + [id number]] Stat CXRP [XR chest 1V portable [id number]] Routine Exams 07/07/25 11:55 Completed XR chest 1V portable [id number] Routine Exams 07/08/25 07:00 Completed XR chest 1V portable [id number] Stat Exams 07/06/25 18:34 Completed XR chest 1V portable [id number] Stat Exams 07/06/25 20:41 Completed CV. echo complete* [id number] Routine Ultrasound 07/07/25 01:33 Completed US venous duplex upper extremity RT [CV venous duplex Ultrasound 07/08/25 07:54 [place] [id number]] Routine Laboratory Last Values WBC 6.03 10^3/uL (3.29-11.43) 07/08/25 05:59 RBC 2.98 10^6/uL (3.85-5.65) L 07/08/25 05:59 Hgb 8.50 g/dL (11.27-16.99) L 07/08/25 05:59 Hct 28.8 % (37-53) L 07/08/25 05:59 MCV 96.6 fl (82-101) 07/08/25 05:59 MCH 28.5 pg (27-33) 07/08/25 05:59 MCHC 29.5 g/dL (30-55) L 07/08/25 05:59 RDW 21.3 % (12.1-15.1) H 07/08/25 05:59 Plt Count 96 10^3/cmm (157-399) L 07/08/25 05:59 MPV 10.4 fL (7.4-10.4) 07/08/25 05:59 Neut % (Auto) 77.9 % 07/08/25 05:59 Lymph % (Auto) 11.3 % 07/08/25 05:59 Kings % (Auto) 8.0 % 07/08/25 05:59 Eos % (Auto) 2.0 % 07/08/25 05:59 Baso % (Auto) 0.5 % 07/08/25 05:59 Neut # (Auto) 4.70 10^3/uL (1.8-7.7) 07/08/25 05:59 Lymph # (Auto) 0.7 10^3/uL (0.8-4.8) L 07/08/25 05:59 Kings # (Auto) 0.5 10^3/uL (0.2-0.9) 07/08/25 05:59 Eos # (Auto) 0.1 10^3/uL (0.0-0.8) 07/08/25 05:59 Baso # (Auto) 0.0 10^3/uL (0.0-0.1) 07/08/25 05:59 Nucleated RBC % (auto) 0.3 % 07/08/25 05:59 Nucleated RBCs # 0.0 /100WBC 07/08/25 05:59 APTT 79.8 SECONDS (23.9-36.7) H D 07/08/25 08:24 Specimen Type Arterial 07/08/25 03:55 Sample Site Radial, right 07/08/25 03:55 ABG pH 7.47 (7.35-7.45) H 07/08/25 03:55 ABG pCO2 38.9 mmHg (35-45) 07/08/25 03:55 ABG pO2 83.0 mmHg (80.0-100.0) 07/08/25 03:55 ABG PO2/FiO2 Ratio 237 07/08/25 03:55 ABG HCO3 28.2 mmol/L (22-26) H 07/08/25 03:55 ABG O2 Saturation 99.0 07/07/25 05:27 ABG Base Excess 4.2 mmol/L (-2.0-2.0) H 07/08/25 03:55 Anthony Test Pos 07/08/25 03:55 A-a O2 Gradient 16.3 mmHg (5-10) H 07/07/25 05:27 Hematocrit 27.9 % (42-52) L 07/08/25 03:55 Hgb O2 Saturation 96.1 % (95-100) 07/07/25 05:27 Carboxyhemoglobin 2.0 %THgb (0.4-20.1) 07/07/25 05:27 Methemoglobin 1.0 % (0.4-1.5) 07/07/25 05:27 Total Hemoglobin 9.1 g/dL (14-18) L 07/07/25 05:27 Sodium 137.0 mmol/L (131-143) 07/07/25 05:27 Potassium 2.9 mmol/L (3.5-5.0) L 07/07/25 05:27 Glucose 112.0 mg/dL (70-115) 07/07/25 05:27 Ionized Calcium 1.1 mmol/L (1.1-1.4) 07/07/25 05:27 O2 Delivery Device Vent 07/08/25 03:55 O2 Liters/Min 5.0 % 07/06/25 19:23 FiO2 35.0 % 07/08/25 03:55 Tidal Volume 0.50 07/08/25 03:55 PEEP 10.0 cmH20 07/08/25 03:55 Facilities Assistant ID [email or web address] 07/08/25 03:55 Sodium 138 mmol/L (136-145) 07/08/25 08:24 Potassium 3.2 mmol/L (3.5-5.1) L 07/08/25 08:24 Chloride 102 mmol/L (98-107) 07/08/25 08:24 Carbon Dioxide 24 mmol/L (22-29) 07/08/25 08:24 Anion Gap 15.2 (5-19) 07/08/25 08:24 BUN 68 mg/dL (8-23) H 07/08/25 08:24 Creatinine 2.9 mg/dL (0.7-1.2) H 07/08/25 08:24 GFR Calculation 21.7 mL/min (90-130) L 07/08/25 08:24 Glucose 79 mg/dL (65-115) 07/08/25 08:24 POC Glucose 98 mg/dL (70-110) 07/08/25 12:16 Calculated Osmolality 305 mOsm/kg (285-295) H 07/08/25 08:24 Lactic Acid 1.2 mmol/L (0.5-2.2) 07/07/25 10:46 Lactic Acid (Sepsis) 1.9 mmol/L (0.5-2.2) 07/06/25 21:40 Lactate 1.1 mmol/L (0.5-2.2) 07/08/25 05:59 Calcium 8.6 mg/dL (8.5-10.5) 07/08/25 08:24 Phosphorus 3.7 mg/dL (2.5-4.5) 07/08/25 05:59 Magnesium 1.9 mg/dL (1.7-2.3) 07/08/25 05:59 Total Bilirubin 1.6 mg/dL (0.15-1.2) H 07/08/25 05:59 AST 46 U/L (0-40) H 07/08/25 05:59 ALT 13 U/L (0-41) 07/08/25 05:59 Alkaline Phosphatase 33 U/L (40-130) L 07/08/25 05:59 Creatine Kinase 128 U/L (39-308) 07/07/25 01:01 Troponin T 5th Gen ng/L 242 ng/L (0-15) H* 07/08/25 01:14 Troponin T Baseline 242 ng/L (0-15) H* 07/06/25 19:08 Troponin T 120 Minute 281.4 ng/L (0-15) H 07/06/25 21:40 Delta Troponin T 39.4 ABS# (0-10) H* 07/06/25 21:40 Troponin T Hi Sens 6Hr 285.9 ng/L (0-15) H 07/07/25 01:01 Troponin T Hi Sens 6Hr Delta 43.9 ng/L (0-12) H* 07/07/25 01:01 C-Reactive Protein 39.6 mg/L (0.0-4.9) H 07/08/25 05:59 NT-Pro-B Natriuret Pep 18948 pg/mL (0-125) H 07/08/25 05:59 Total Protein 6.2 g/dL (6.6-8.7) L 07/08/25 05:59 Albumin 2.6 g/dL (3.5-5.2) L 07/08/25 05:59 Globulin 3.6 g/dL (1.3-4.6) 07/08/25 05:59 Procalcitonin 1.05 ng/mL (0-0.5) H 07/08/25 05:59 TSH 3.10 uIU/mL (0.27-4.20) 07/06/25 21:40 Urine Color Dark yellow (Yellow) A 07/06/25 20: Urine Appearance Cloudy (CLEAR) A 07/06/25 20: Urine pH 5.0 (5-7) 07/06/25 20:41 Ur Specific [place] 1.016 (1.005-1.030) 07/06/25 20:41 Urine Protein 2+ (Negative) A 07/06/25 20:41 Urine Glucose (UA) Trace (Normal) H 07/06/25 20:41 Urine Ketones Negative (Negative) 07/06/25 20: Urine Blood Negative (Negative) 07/06/25 20: Urine Nitrate Negative (Negative) 07/06/25 20:41 Urine Bilirubin 1+ (Negative) H 07/06/25 20:41 Urine Urobilinogen 1.0 mg/dL (Negative) 07/06/25 20:41 Ur Leukocyte Esterase Trace (Negative) A 07/06/25 20:41 Urine RBC 6-10 /hpf (0-2) 07/06/25 20:41 Urine WBC 0-5 /hpf (0-5) 07/06/25 20:41 Ur Squamous Epith Cells 0-5 /hpf (0-5) 07/06/25 20:41 Amorphous Sediment Not Reportable 07/06/25 20:41 Urine Bacteria None seen /hpf (NONE) 07/06/25 20:41 Hyaline Casts 69.07 /lpf 07/06/25 20:41 Urine Mucus 2+ /hpf 07/06/25 20:41 Nasal MRSA (PCR) Not detected (Negative) 07/07/25 02:30 Vancomycin Trough 13.5 ug/mL (10-15) 07/08/25 01:14 Adenovirus (PCR) Not detected (NOT DETECT) 07/07/25 02:30 C. pneumoniae DNA (PCR) Not detected (NOT DETECT) 07/07/25 02:30 Coronavirus 229E (PCR) Not detected (NOT DETECT) 07/07/25 02:30 Human Metapneumovir PCR Not detected (NOT DETECT) 07/07/25 02:30 Influenza A (H1) PCR Not detected (NOT DETECT) 07/07/25 02:30 Influenza A (PCR) Negative (Negative) 07/06/25 19:14 Influ A (H1/09) PCR Not detected (NOT DETECT) 07/07/25 02:30 Influenza A (H3) PCR Not detected (NOT DETECT) 07/07/25 02:30 Influenza Type A (PCR) Not detected (NOT DETECT) 07/07/25 02:30 Influenza Type B (PCR) Not detected (NOT DETECT) 07/07/25 02:30 M. pneumoniae (PCR) Not detected (NOT DETECT) 07/07/25 02:30 Parainfluenza 1 (PCR) Not detected (NOT DETECT) 07/07/25 02:30 Parainfluenza 2 (PCR) Not detected (NOT DETECT) 07/07/25 02:30 Parainfluenza 3 (PCR) Not detected (NOT DETECT) 07/07/25 02:30 Parainfluenza 4 (PCR) Not detected (NOT DETECT) 07/07/25 02:30 RSV (PCR) Negative (Negative) 07/06/25 19:14 RSV Type A (PCR) Not detected (NOT DETECT) 07/07/25 02:30 RSV Type B (PCR) Not detected (NOT DETECT) 07/07/25 02:30 Entero/Rhino (PCR) Not detected (NOT DETECT) 07/07/25 02:30 SARS-CoV-2 (PCR) Not detected (NOT DETECT) 07/07/25 02:30 Blood Type O Positive 07/07/25 16:43 Rho(D) Type Rh positive 07/07/25 16:43 Antibody Screen Negative 07/07/25 16:43 Crossmatch See Detail 07/07/25 16:43 Radiology Impressions Chest/Abdomen/Pelvis CT 07/06/25 21:20 IMPRESSION: 1. Endotracheal tube terminates in the trachea. 2. No pulmonary embolism. . 3. Dependent airspace consolidations, concerning for aspiration pneumonia. . IMPRESSION: 1. Hepatic steatosis. 2. Cholelithiasis. 3. Feeding tube terminates in the stomach. 4. Diverticulosis, without acute diverticulitis. No small bowel obstruction. No free air. Chest X-Ray 07/08/25 07:00 IMPRESSION: Resolving CHF. Persistent opacity at the left lung base. Venous Duplex 07/08/25 07:54 IMPRESSION: No evidence of deep vein thrombosis. Recent Clincial Data Last Vital Signs Temp 97.1 F L 07/08/25 12:31 Pulse 71 07/08/25 13:00 Resp 14 07/08/25 13:30 BP 93/69 07/08/25 13:00 Pulse Ox 100 07/08/25 13:30 O2 Del Method Mechanical Ventilation 07/08/25 12:31 O2 Flow Rate 4 07/06/25 18:29 FiO2 35 07/08/25 13:30 Vital Signs Temp Pulse Resp BP Pulse Ox O2 Del Method FiO2 07/08/25 13:30 14 100 35 07/08/25 13:00 71 93/69 100 07/08/25 12:31 97.1 F L 71 104/81 89 L Mechanical Ventilation 35 07/08/25 12:00 72 106/79 93 07/08/25 11:30 71 102/78 89 L 07/08/25 11:07 14 95 35 07/08/25 11:00 72 100/77 93 07/08/25 10:30 70 120/80 100 07/08/25 10:00 71 103/68 100 07/08/25 09:30 69 93/64 07/08/25 09:00 71 94/64 100 07/08/25 08:30 97.5 F L 70 16 94/66 98 Mechanical Ventilation 35 07/08/25 08:30 14 100 35 07/08/25 08:00 73 85/61 99 07/08/25 07:30 70 93/70 100 07/08/25 07:00 70 94/64 99 07/08/25 06:30 70 89/65 100 07/08/25 06:00 71 89/64 100 07/08/25 05:55 70 07/08/25 05:30 72 85/62 100 07/08/25 05:00 70 86/60 100 07/08/25 04:30 70 96/65 99 07/08/25 04:07 98.8 F 07/08/25 04:00 72 90/64 99 07/08/25 03:56 20 H 99 35 07/08/25 03:30 84 88/62 100 07/08/25 03:00 71 91/60 100 07/08/25 02:30 70 97/67 100 07/08/25 02:12 70 92/62 99 Intake & Output/Weight 07/06/25 07/07/25 07/08/25 07/09/25 06:59 06:59 06:59 06:59 Intake Total 1517.843 / 2238.072 8805.367 / 1447.367 581.599 / 581.599 Output Total 1800 / 1800 3150 / 3150 350 / 350 Balance -282.157 / -282.157 -1702.633 / -1702.633 231.599 / 231.599 Weight 113.262 kg 109.769 kg Vitals Last Vital Signs Temp 97.1 F L 07/08/25 12:31 Pulse 71 07/08/25 13:00 Resp 14 07/08/25 13:30 BP 93/69 07/08/25 13:00 Pulse Ox 100 07/08/25 13:30 O2 Del Method Mechanical Ventilation 07/08/25 12:31 O2 Flow Rate 4 07/06/25 18:29 FiO2 35 07/08/25 13:30 TS Medications Medications Albuterol Sulfate (Albuterol 2.5 Mg/0.5 Ml Neb) 2.5 mg INHALATION Q6H.RESP PRN PRN Reason: WHEEZING Aripiprazole (Aripiprazole 10 Mg Tablet) 5 mg PO BID [facility] Last Admin: 07/08/25 04:00 Dose: 5 mg Aspirin (Aspirin 81 Mg Chew Tablet) 81 mg OG-TUBE DAILY [facility] Last Admin: 07/08/25 04:00 Dose: 81 mg Atorvastatin Calcium (Atorvastatin 40 Mg Tablet) 40 mg PO QPM [facility] Last Admin: 07/07/25 18:25 Dose: 40 mg Chlorhexidine Gluconate (Chlorhexidine Gluconate 4% Btl 118 Ml) 1 applic TOPICAL PRN PRN PRN Reason: Bed Bath Last Admin: 07/07/25 23:42 Dose: 1 applic Fludrocortisone Acetate (Fludrocortisone 0.1 Mg Tablet) 0.1 mg PO DAILY [facility] Last Admin: 07/08/25 04:00 Dose: 0.1 mg Glucagon (Glucagon 1 Mg/Ml Kit 1 Ml) 1 mg IM ONCE PRN; Protocol PRN Reason: Adult Acute Hypoglycemia Nursing Prot. Heparin Sodium (Porcine) (Heparin 5,000 Unit/Ml Inj 1 Ml) 0 unit IVP PRN PRN; Protocol PRN Reason: Heparin Weight Based Protocol -Subsequent Bolus Last Admin: 07/08/25 02:19 Dose: 2,200 unit Heparin Sodium/Sodium Chloride (Heparin Drip) 25,000 unit in 500 mls @ 26.454 mls/hr IV CONT JOSÉ; Protocol Last Admin: 07/08/25 13:21 Dose: 11.11 unit/kg/hr, 24.5 mls/hr Midazolam HCl (Versed) 100 mg in 100 mls @ 0 mls/hr IV .Q0M JOSÉ; Protocol Last Titration: 07/08/25 10:40 Dose: 4 mg/hr, 4 mls/hr Dextrose (D5w) 500 mls @ 0 mls/hr IV ONCE PRN; Protocol PRN Reason: Adult Acute Hypoglycemia Prot Dextrose (D10w) 125 mls @ 750 mls/hr IV PRN PRN; Protocol PRN Reason: Adult Acute Hypoglycemia Nursing Protocol Last Infusion: 07/07/25 18:25 Dose: Infused Dextrose (D10w) 250 mls @ 1,000 mls/hr IV PRN PRN; Protocol PRN Reason: Adult Acute Hypoglycemia Nursing Protocol Piperacillin Sod/Tazobactam (Sod 3.375 gm/ Sodium Chloride) 50 mls @ 12.5 mls/hr IV Q12H [facility] Last Admin: 07/08/25 07:46 Dose: 12.5 mls/hr Norepinephrine Bitartrate (Levophed) 4 mg in 250 mls @ 0 mls/hr IV .Q0M JOS[facility]; Protocol Dexmedetomidine/Sodium Chloride (Precedex) 400 mcg in 100 mls @ 0 mls/hr IV .Q0M JOSÉ; Protocol Last Titration: 07/08/25 10:16 Dose: 0.2 mcg/kg/hr, 5.49 mls/hr Potassium Phosphate 40 meq/ (Sodium Chloride) 109.0909 mls @ 27.25 mls/hr IV ONCE ONE Stop: 07/08/25 14:04 Last Admin: 07/08/25 10:24 Dose: 27.25 mls/hr Insulin Human Lispro (Insulin Lispro 100 Unit/1 Ml) 0 unit SUBCUT WM&BEDTIME [facility]OS[facility]; Protocol Last Admin: 07/08/25 12:20 Dose: Not Given Levetiracetam (Levetiracetam 500 Mg Tablet) 500 mg OG-TUBE DAILY [facility] Last Admin: 07/08/25 04:00 Dose: 500 mg Ondansetron HCl (Ondansetron 2 Mg/Ml Sdv 2 Ml) 4 mg IVP Q6H PRN PRN Reason: NAUSEA AND VOMITING Pantoprazole Sodium (Pantoprazole 40 Mg Sdv) 40 mg IVP Q12H [facility] Last Admin: 07/08/25 04:00 Dose: 40 mg Senna (Sennosides 8.6 Mg Tablet) 17.2 mg PO BEDTIME [facility] Last Admin: 07/07/25 21:14 Dose: Not Given Sodium Chloride (Sodium Chloride 0.9% 100 Ml Bag) 50 ml IV PRN PRN PRN Reason: Blood transfusion prime and flush Stop: 07/08/25 18:12 Sucralfate (Sucralfate 1 Gm Tablet) 1 gm PO Q6H [facility] Last Admin: 07/08/25 08:07 Dose: 1 gm Tizanidine HCl (Tizanidine 4 Mg Tablet) 4 mg PO BEDTIME PRN PRN Reason: Muscle Spasticity Vancomycin HCl (Vancomycin 1,000 Mg Sdv (Pharmacy Mix)) 0 mg XX PRN PRN PRN Reason: Pharmacy to Dose Discontinued Medications Aspirin (Aspirin 81 Mg Ec Tablet) 81 mg PO DAILY [facility] Last Admin: 07/07/25 05:51 Dose: Not Given Aspirin (Aspirin 81 Mg Chew Tablet) 81 mg PO DAILY [facility] Etomidate (Etomidate 2 Mg/Ml Inj Sdv 10 Ml) 30 mg IVP NOW ONE Stop: 07/06/25 20:17 Last Admin: 07/06/25 20:11 Dose: 30 mg Furosemide (Furosemide 10 Mg/Ml Sdv 10ml) 60 mg IVP Q12H [facility] Last Admin: 07/07/25 13:10 Dose: Not Given Furosemide (Furosemide 10 Mg/Ml Sdv 2ml) 20 mg IVP ONCE ONE Stop: 07/07/25 18:43 Last Admin: 07/07/25 22:21 Dose: Not Given Furosemide (Furosemide 10 Mg/Ml Sdv 4ml) 40 mg IVP ONCE ONE Stop: 07/08/25 10:05 Last Admin: 07/08/25 10:19 Dose: 40 mg Sodium Chloride (Sodium Chloride 0.9%) 500 mls @ 999 mls/hr IV .Q31M STA Stop: 07/06/25 19:28 Last Infusion: 07/06/25 22:31 Dose: Infused Linezolid (Zyvox Premix) 600 mg in 300 mls @ 300 mls/hr IV ONCE ONE; Protocol Stop: 07/06/25 19:57 Last Infusion: 07/06/25 22:28 Dose: Infused Propofol (Diprivan) 1,000 mg in 100 mls @ 0 mls/hr IV .Q0M [facility]OS[facility]; Protocol Last Titration: 07/07/25 01:56 Dose: 0 mcg/kg/min, 0 mls/hr Propofol (Diprivan) Confirm Administered Dose 1,000 mg in 100 mls @ as directed .ROUTE .STK-MED ONE Stop: 07/06/25 20:19 Piperacillin Sod/Tazobactam (Sod 2.25 gm/ Sodium Chloride) 50 mls @ 100 mls/hr IV Q6H [facility] Vancomycin HCl (Vancocin) 2,000 mg in 400 mls @ 200 mls/hr IV ONCE ONE Stop: 07/07/25 01:29 Last Infusion: 07/07/25 04:12 Dose: Infused Piperacillin Sod/Tazobactam (Sod 2.25 gm/ Sodium Chloride) 50 mls @ 100 mls/hr IV Q6H [facility] Last Admin: 07/07/25 13:39 Dose: Not Given Potassium Chloride (K-Josr) 100 mls @ 25 mls/hr IV Q4H [facility] Stop: 07/08/25 02:14 Last Infusion: 07/07/25 23:34 Dose: Infused Albumin Human (Albumin) 25 g in 100 mls @ 60 mls/hr IV ONCE ONE Stop: 07/08/25 11:44 Last Admin: 07/08/25 10:16 Dose: 60 mls/hr Vancomycin HCl 1,000 mg/ (Sodium Chloride) 250 mls @ 250 mls/hr IV ONCE ONE Stop: 07/08/25 11:29 Last Infusion: 07/08/25 13:26 Dose: Infused Iohexol (Iohexol 350 Mg/Ml 500 Ml Btl (Per Ml)) 0 ml IV ONCE ONE Stop: 07/07/25 00:10 Last Admin: 07/07/25 00:10 Dose: 100 ml Levetiracetam (Levetiracetam 500 Mg Tablet) 500 mg PO DAILY [facility] Last Admin: 07/07/25 05:54 Dose: Not Given Lorazepam (Lorazepam 2 Mg/Ml Inj 1 Ml) 1 mg IVP ONCE ONE Stop: 07/06/25 19:09 Last Admin: 07/06/25 19:14 Dose: 1 mg Meropenem (Meropenem 500 Mg Sdv) 500 mg IVP ONCE ONE; Protocol Stop: 07/06/25 18:59 Last Admin: 07/06/25 19:52 Dose: 500 mg Midodrine (Midodrine 5 Mg Tablet) 10 mg PO TID [facility] Last Admin: 07/07/25 06:16 Dose: 10 mg Olanzapine (Olanzapine 5 Mg Tablet) 5 mg PO BEDTIME JOSÉ Pantoprazole Sodium (Pantoprazole 40 Mg Sdv) 40 mg IVP DAILY [facility] Last Admin: 07/07/25 06:16 Dose: 40 mg Potassium Chloride (Potassium Chloride Oral Liq 20 Meq/15 Ml Udc) 40 meq OG-TUBE ONCE ONE Stop: 07/07/25 21:07 Last Admin: 07/07/25 21:33 Dose: 40 meq Potassium Chloride (Potassium Chloride Oral Liq 20 Meq/15 Ml Udc) 40 meq OG-TUBE ONCE ONE Stop: 07/08/25 02:22 Last Admin: 07/08/25 02:34 Dose: 40 meq Potassium Chloride (Potassium Chloride Er 20 Meq Tablet) 40 meq PO ONCE ONE Stop: 07/08/25 10:05 Last Admin: 07/08/25 10:21 Dose: 40 meq Rocuronium [place] (Rocuronium 10 Mg/Ml Inj 5ml) 130 mg IVP Q1H PRN PRN Reason: ANESTHESIA Last Admin: 07/06/25 20:11 Dose: 130 mg Rocuronium [place] (Rocuronium 10 Mg/Ml Inj 5ml) Confirm Administered Dose 150 mg .ROUTE .STK-MED ONE Stop: 07/06/25 20:09 Allergies fentanyl Allergy (Verified 07/06/25 13:39) Unknown lisinopril Adverse Reaction (Mild, Verified 07/06/25 13:39) Coughing Home Medications Blood pressure cuff and machine #1 ea 06/27/22 [Rx Confirmed 07/07/25] o2 at 3L per nasal cannula #1 ea 08/11/22 [Rx Confirmed 07/07/25] nitroglycerin 0.3 mg sublingual tablet 0.3 mg sublingual Q5M PRN chest pain #30 tabs 10/08/22 [Rx Confirmed 07/07/25] Diabetic shoes with inserts #1 ea 04/24/23 [Rx Confirmed 07/07/25] wheelchair #1 ea 06/02/24 [Rx Confirmed 07/07/25] compressor, for nebulizer #1 ea 06/07/24 [Rx Confirmed 07/07/25] nebulizer accessories #1 ea 06/07/24 [Rx Confirmed 07/07/25] 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,ultrasound applications specialist,cont (Dexcom G7 Assistant County Engineer) #1 ea 06/20/24 [Rx Confirmed 07/07/25] tamsulosin 0.4 mg capsule 0.4 mg PO BEDTIME 02/23/25 [History Confirmed 07/07/25] sildenafil 50 mg tablet (Viagra) 50 mg PO DAILY PRN sexual activity #10 tabs 02/24/25 [Rx Confirmed 07/07/25] allopurinol 100 mg tablet 50 mg (1/2 x 100 mg) PO .EVERY OTHER DAY #30 tabs 03/24/25 [Rx Confirmed 07/07/25] diabetic shoes with inserts #1 ea 04/13/25 [Rx Confirmed 07/07/25] dapagliflozin propanediol 10 mg tablet (Farxiga) 10 mg PO DAILY #90 tabs 04/14/25 [Rx Confirmed 07/07/25] dulaglutide 1.5 mg/0.5 mL subcutaneous pen injector (Trulicity) 1.5 mg (0.5 mL) SUBCUT .weekly #6 mL 04/14/25 [Rx Confirmed 07/07/25] fenofibrate 160 mg tablet 160 mg PO DAILY #90 tabs 04/14/25 [Rx Confirmed 07/07/25] Diabetic Shoes 3 x insoles #1 ea 04/18/25 [Rx Confirmed 07/07/25] diabetic shoes with inserts #1 ea 05/17/25 [Rx Confirmed 07/07/25] atorvastatin 40 mg tablet 40 mg PO QPM 06/08/25 [History Confirmed 07/07/25] apixaban 5 mg tablet (Eliquis) 2.5 mg (1/2 x 5 mg) PO BID #1 tab 07/02/25 [Rx Confirmed 07/07/25] aripiprazole 10 mg tablet 5 mg (1/2 x 10 mg) PO BID #60 tabs 07/02/25 [Rx Confirmed 07/07/25] ferrous sulfate 324 mg (65 mg iron) tablet,delayed release 324 mg PO DAILY #90 tabs 07/02/25 [Rx Confirmed 07/07/25] fludrocortisone 0.1 mg tablet 0.1 mg PO DAILY #30 tabs 07/02/25 [Rx Confirmed 07/07/25] furosemide 40 mg tablet 80 mg (2 x 40 mg) PO BID@08,16 #60 tabs 07/02/25 [Rx Confirmed 07/07/25] multivitamin with folic acid 400 mcg tablet (Thera) 1 tab PO DAILY #90 tabs 07/02/25 [Rx Confirmed 07/07/25] olanzapine 5 mg tablet 5 mg PO BEDTIME #30 tabs 07/02/25 [Rx Confirmed 07/07/25] polyethylene glycol 3350 17 gram oral powder packet 17 g PO DAILY #30 ea 07/02/25 [Rx Confirmed 07/07/25] potassium chloride 20 mEq tablet,extended release(part/cryst) (Klor-Con M) 20 meq PO BID #60 tabs 07/02/25 [Rx Confirmed 07/07/25] 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 sensor ([employer] G7 Sensor device) #3 ea 07/04/25 [Rx Confirmed 07/07/25] levetiracetam 500 mg tablet 500 mg PO QDAY #30 tabs 07/04/25 [Rx Confirmed 07/07/25] tizanidine 4 mg tablet 4 mg PO .HS PRN Muscle Spasticity #90 tabs 07/04/25 [Rx Confirmed 07/07/25] aspirin 81 mg tablet,delayed release 81 mg PO DAILY 07/05/25 [History Confirmed 07/07/25] docusate sodium 250 mg capsule 250 mg PO BID 07/05/25 [History Confirmed 07/07/25] metolazone 2.5 mg tablet 2.5 mg PO DAILY 07/05/25 [History Confirmed 07/07/25] midodrine 10 mg tablet 10 mg PO TID 07/05/25 [History Confirmed 07/07/25] DME: Walker #1 ea 07/06/25 [Rx Confirmed 07/07/25] Discharge Plan Discharge Patient Disposition: Home Condition: Stable Prescriptions: No Action (DME) wheelchair lightweight See Rx Instructions .Route .MEDSUPPLY Qty: 1 0RF Rx Instructions: Lightweight wheelchair for in home use (DME) diabetic shoes with inserts See Rx Instructions .Route .MEDSUPPLY Qty: 1 0RF Rx Instructions: As directed (DME) DME: Walker Unit See Rx Instructions .ROUTE Qty: 1 0RF Rx Instructions: 99 months+ (DME) o2 at 3L per nasal cannula See Rx Instructions .Route .MEDSUPPLY Qty: 1 0RF Rx Instructions: Room air O2 sats were 83. After 3L O2 went up to 90's however when walking still at 89 on 3 L O2. Home (company) nitroglycerin 0.3 mg tablet, sublingual 0.3 mg sublingual Q5M PRN (Reason: chest pain) Qty: 30 0RF Rx Instructions: do not exceed 3 doses per episode (DME) Diabetic shoes with inserts See Rx Instructions .Route .MEDSUPPLY Qty: 1 0RF Rx Instructions: As directed (DME) nebulizer accessories Kit See Rx Instructions .Route Qty: 1 0RF Rx Instructions: As directed (DME) compressor, for nebulizer Device See Rx Instructions .Route Qty: 1 0RF Rx Instructions: As directed (DME) Dexcom G7 Assistant County Engineer Misc See Rx Instructions .Route Qty: 1 0RF Rx Instructions: As directed (DME) Blood pressure cuff and machine See Rx Instructions .Route .MEDSUPPLY Qty: 1 0RF Rx Instructions: As directed sildenafil [Viagra] 50 mg tablet 50 mg PO DAILY PRN (Reason: sexual activity) Qty: 10 2RF allopurinol 100 mg tablet 50 mg PO .EVERY OTHER DAY Qty: 30 0RF (DME) diabetic shoes with inserts See Rx Instructions .Route .MEDSUPPLY Qty: 1 0RF Rx Instructions: 1 pair Trulicity 1.5 mg/0.5 mL pen injector 1.5 mg SUBCUT .weekly Qty: 6 1RF Rx Instructions: on Thursday fenofibrate 160 mg tablet 160 mg PO DAILY Qty: 90 1RF dapagliflozin propanediol [Farxiga] 10 mg tablet 10 mg PO DAILY Qty: 90 1RF (DME) Diabetic Shoes 3 x insoles See Rx Instructions .Route .MEDSUPPLY Qty: 1 0RF Rx Instructions: As directed: [employer] (DME) Dexcom G7 Sensor Device See Rx Instructions .Route Qty: 3 5RF Rx Instructions: As directed levetiracetam 500 mg tablet 500 mg PO QDAY Qty: 30 2RF tizanidine 4 mg tablet 4 mg PO .HS PRN (Reason: Muscle Spasticity) Qty: 90 0RF tamsulosin 0.4 mg capsule 0.4 mg PO BEDTIME atorvastatin 40 mg tablet 40 mg PO QPM aripiprazole 10 mg Tablet 5 mg PO BID Qty: 60 0RF furosemide 40 mg Tablet 80 mg PO BID@08,16 Qty: 60 0RF polyethylene glycol 3350 17 gram Powder In Packet 17 g PO DAILY Qty: 30 0RF olanzapine 5 mg Tablet 5 mg PO BEDTIME Qty: 30 0RF potassium chloride [Klor-Con M20] 20 mEq Tablet,Er Particles/Crystals 20 meq PO BID Qty: 60 0RF fludrocortisone 0.1 mg Tablet 0.1 mg PO DAILY Qty: 30 0RF multivitamin with folic acid [Thera] 400 mcg Tablet 1 tab PO DAILY Qty: 90 0RF Eliquis 5 mg tablet 2.5 mg PO BID Qty: 1 1RF ferrous sulfate 324 mg (65 mg iron) tablet,delayed release (DR/EC) 324 mg PO DAILY Qty: 90 0RF midodrine 10 mg tablet 10 mg PO TID docusate sodium 250 mg capsule 250 mg PO BID metolazone 2.5 mg tablet 2.5 mg PO DAILY aspirin 81 mg tablet,delayed release (DR/EC) 81 mg PO DAILY Referrals: Lora Buchanan FNP-C [Primary Care Provider, Family Practice] Patient Instructions: Opioid Safety, Patient Portal & Yimi Instructions Transfer Attestations Time Spent in Transfer Care: greater than 30 min Quality Metrics Clinical Quality Measures [ No reported AMI, CVA or VTE this stay] Coding Level of Care Code Acute Code for Chg Fwd Diagnoses Acute on chronic systolic heart failure I50.23 Aortic valve stenosis, etiology of cardiac valve disease unspecified I35.0 Cardiac valve disease etiology: etiology unspecified Nonischemic cardiomyopathy I42.8 Presence of permanent cardiac pacemaker Z95.0 Acute kidney injury superimposed on chronic kidney disease N17.9; N18.9 Primary hypertension I10 Hypertension type: primary hypertension Chronic atrial fibrillation I48.20 Atrial fibrillation type: unspecified chronic Mixed hyperlipidemia E78.2 Pulmonary HTN I27.20 Venous stasis dermatitis of both lower extremities I87.2 Type 2 diabetes mellitus without complication, without long-term current use of insulin E11.9 Diabetes mellitus designer architect insulin use: without designer architect use Diabetes mellitus complication status: without complication Acute hypoxemic respiratory failure J96.01 Acute on chronic systolic (congestive) heart failure I50.23 Sepsis A41.9; R65.20; N17.9 Acute renal failure type: unspecified Sepsis acute organ dysfunction status: with acute organ dysfunction Sepsis type: sepsis due to unspecified organism Severe sepsis acute organ dysfunction type: acute renal failure Severe sepsis shock status: without septic shock Non-ST elevation [place] (NSTEMI) I21.4 Persistent atrial fibrillation I48.19 S/P aortic valve replacement with bioprosthetic valve Z95.3 Diabetes mellitus with diabetic neuropathy E11.40 Hx of seizure disorder Z86.69 Acute pulmonary embolism, unspecified pulmonary embolism type, unspecified whether acute cor pulmonale present I26.99 Pulmonary embolism type: unspecified Chronicity: acute Acute cor pulmonale presence: unspecified DDD (degenerative disc disease), lumbosacral M51.37
--- NOTE | 2025-07-08 14:23 | PC.NURSE ---
Report: Report called to ROSA Jose at [address] Patient going to room 3318. Report#: [phone] Jeovany requested a call when the patient leaves our facility.
--- NOTE | 2025-07-08 15:04 | P.PN_ITS ---
Subjective 2 Subjective: Pawan Marcum is a 70 year old male with past medical history of chronic congestive heart failure, status post AVR with bioprosthetic valve, diabetes, pulmonary hypertension secondary most likely,, history of PE, status post permanent cardiac pacemaker, obesity department COPD, chronic respiratory failure presents to the hospital yesterday with symptoms of shortness of breath. Was found to be in acute respiratory failure intubated after trial of BiPAP, currently on the ventilator tolerating it well. Was also noted to be non-STEMI, cardiology consulted heparin drip started. Blood pressure is slightly low MAP at 63. Not fluid responsive on NICOM. 07/08/2025 Patient is intubated on the ventilator tolerating it well. On heparin drip as well as to Versed. DuoNeb not started. Wheezing some otherwise. 1 unit of packed red cells given for a hemoglobin dropped down to 7.6. K replacement ongoing. Review of systems-unobtainable patient is on the vent Vitals/I&O/Wt Last Vital Signs Temp 97.1 F L 07/08/25 12:31 Pulse 71 07/08/25 13:00 Resp 14 07/08/25 13:30 BP 93/69 07/08/25 13:00 Pulse Ox 100 07/08/25 13:30 O2 Del Method Mechanical Ventilation 07/08/25 12:31 O2 Flow Rate 4 07/06/25 18:29 FiO2 35 07/08/25 13:30 07/08/25 07/08/25 07/08/25 06:59 14:59 22:59 Intake Total 774.65 / 1447.367 581.599 / 581.599 Output Total 800 / 3150 900 / 900 Balance -25.35 / -1702.633 -318.401 / -318.401 Weight last 48 hrs Weight 242 lb Weight 249 lb 11.2 oz Weight 249 lb 11.2 oz Weight 243 lb Physical Exam 2 Narrative: Per RN General: Intubated sedated, morbidly obese HEENT: EOMI Pulmonary: Diminished breath sounds bilaterally Cardiovascular: Irregularly irregular, nl s1s2, Abdomen: soft, nt, nd, no r/g, obese Extremities: no edema Neurologic: grossly intact Agree with above exam Urinary Catheter Management: Salazar: Cath Placed During This Visit: yes Reason for Continuing Indwelling Catheter: Accurate Measurement of Urinary Output in Critically Ill Patients Urinary Catheter Date of Insertion: 07/06/25 Urinary Catheter Time of Insertion: 20:15 Data 07/08/25 05:59 07/08/25 08:24 Micro: Microbiology 07/07/25 08:10 Gram Stain - Final Sputum - Endotracheal Tube Aspirate Sputum Culture - Preliminary 07/07/25 02:30 Urine Culture - Preliminary Urine Catheterized A&P Assessment and plan 1. Acute respiratory failure with hypoxia: 2. Congestive heart failure: Plan: # Acute on chronic hypoxic/hypercapnic respiratory failure - Continue mechanical ventilation support-wean as tolerated - Low tidal volume ventilation strategy-permissive hypercapnia - Ventilator settings tidal volume 500/respiratory rate of 14/PEEP 8/FiO2 35% satting 100% O2 sat. Keep O2 sat above 90 to 92% - Bronchopulmonary hygiene, keep head of the bed elevated - I recommend that we maintain patient on mechanical ventilation secondary to his repeated multiple respiratory failure episodes in the past to make it safe for transfer. Current ABG today shows a pH of 7.27 pCO2 of 38.9 pO2 of 83 and PF ratio of 237. Still having thick secretions via ET tube. Cultures reviewed rare gram- positive cocci in pairs noted. Await speciation - Continue vancomycin and Zosyn. Chest x-ray reviewed shows air bronchograms in the right lower lobe. May need a bronchoscopy prior to surgery if he continues to have thick secretions. # Non-STEMI- - Cardiology following appreciate help. Continue heparin drip - Reviewed labs-07/05/2025-troponin delta 39 - Cardiology following appreciate help. Status post JONATHAN showing severe aortic stenosis valve in place of moderate MR # Nonischemic cardiomyopathy with severe aortic valve stenosis EF was 30% found on echo. Cardiology consulted and would like the patient to be transferred for redo valve procedure for aortic stenosis.. And VTI of 0.6 and valve index of 0.25 noted on aortic valve. JONATHAN was reviewed. Patient has recurrent heart failure multiple admissions are most likely the result of this - Continue Lasix, monitor urine output. Urine output yesterday was 4 L. Creatinine up to 2.9 from 3.5 yesterday. BNP continues to be elevated 11,000. # Septic shock-most likely secondary to pneumonia - Chest x-ray reviewed 07/06/2025-pulmonary vascular congestion noted along with bilateral hilar involvement probable pneumonia. Cardiomegaly. Chest x-ray today 07/08/25-shows pulmonary edema resolving but revealed right lower lobe and middle lobe air bronchograms suggestive of pneumonia. Patient also has thick secretions noted. - Currently on vancomycin and Zosyn, cultures pending blood and sputum. - As needed Levophed drip to keep MAP above 65. - Volume overloaded-avoid fluid resuscitation, NICOM shows not to be fluid responsive. Cautious with fluids secondary to severe aortic stenosis # Acute anemia Hemoglobin 8, replace with blood products as needed to keep hemoglobin above 8. Last night had dropped to 7.6 and 1 unit given. Continue heparin drip # Acute on chronic respiratory acidosis Resolved # ARUNA on chronic kidney disease Current creatinine is 3.1. Patient making urine, continue to monitor closely. Baseline creatinine is 2.3 02/24/2025. Most likely secondary to low cardiac output most likely functional. # Hypokalemia - Aggressive replete electrolyte as needed. Potassium chloride 40 mEq given once. # Mild transaminitis Most likely secondary to shock #Acute on chronic systolic congestive heart failure - Will start diuresis with Lasix 20 mg IV will be given today # Venous stasis dermatitis # COPD-without exacerbation -As needed DuoNebs # Obstructive sleep apnea On mechanical ventilation # Morbid obesity # J-riw-cznlopa intermittent Continue IV heparin. Rate control as needed. # Status post aortic valve replacement with bioprosthetic valve # Pulmonary hypertension most likely group 2 mixed with possible group 3 Goals of care-multiple discussions between Dr. Scott and Dr. Dodge with family. Due to severe aortic stenosis he is being transferred to [facility] for consideration of redo aortic valve replacement by Dr. Clarke. Code full The high probability of a clinically significant, sudden or life threatening deterioration of the patient's [Respiratory, cardiac and renal] system(s) required my full and direct attention, intervention and personal management. The critical care time is as shown. This time is in addition to time spent performing any reported procedures but includes the following: [x] Data and vital sign review and interpretation [x] Patient assessment, examination and intervention [x] Documentation [x] Medication orders and management Critical Care Time (min): 45 Telemedicine Consent Patient seen today via Telemedicine by agreement and consent of patient.? Telemedicine technology used during the visit includes audio and, as available, review of images.? The patient encounter is appropriate and reasonable under the circumstances given the patient?s particular presentation at this time.? The patient has been advised of the potential risks and limitations of this mode of treatment (including but not limited to the absence of in-person examination) and has agreed to be treated in a remote fashion in spite of them.? Any, and all, of the patient?s/patient?s family?s questions on this issue have been answered and I have made no promises or guarantees to the patient. PDMP PDMP Reviewed: Not Reviewed Attestations 2 Medical Necessity Statement*: Intubated on mechanical ventilation Coding Level of Care Code Critical Care >/= 30 minutes Diagnoses Acute respiratory failure with hypoxia J96.01 Congestive heart failure I50.9
--- NOTE | 2025-07-08 15:55 | PC.NURSE ---
Transferred to [facility] Via air evac. Taken out to aircraft at 1530. NUrse called [facility] and gave them an update on departure and reminded of the need to check PTT on arrival due to heparin drip. Nurse called Daughter Megan Anne and let her know pt departed for [place], going to room 3318 in department 3E
--- NOTE | 2025-07-08 16:54 | PC.NURSE ---
Belongings.... Bag of belongings forgot to be sent with patient to [facility]. COntaints a shirt, slippers, and a cellphone. Patient labels put on belonings. Locked in locker #3. Nurse attempted to called Trina Garvey to tell her this, but would not ring to her phone. NUrse called Shruti lagunas and let her know we still have his belongings.
== END 2025-07-08 15:30 | disposition short-term general hospital (02) | DRG 871 ==
LOC: ER 22:26 → ICU 22:55
PROVIDERS: Emergency Medicine; Internal Medicine Cardiovascular Disease; Admitting Provider Student in an Organized Health Care Education/Training Program; Emergency Provider Emergency Medicine; PCP Nurse Practitioner Family; Visit Provider Family Medicine
DX: A41.9 Sepsis, unspecified organism (principal); I21.4 Non-ST elevation (NSTEMI) myocardial infarction; I50.23 Acute on chronic systolic (congestive) heart failure; J18.9 Pneumonia, unspecified organism; R65.21 Severe sepsis with septic shock; I26.99 Other pulmonary embolism without acute cor pulmonale; J96.22 Acute and chronic respiratory failure with hypercapnia; J96.01 Acute respiratory failure with hypoxia; I13.0 Hypertensive heart and chronic kidney disease with heart failure and stage 1 through stage 4 chronic kidney disease, or unspecified chronic kidney disease; N17.9 Acute kidney failure, unspecified; I48.20 Chronic atrial fibrillation, unspecified; I42.8 Other cardiomyopathies; J44.0 Chronic obstructive pulmonary disease with (acute) lower respiratory infection; E87.4 Mixed disorder of acid-base balance; N18.30 Chronic kidney disease, stage 3 unspecified; E11.22 Type 2 diabetes mellitus with diabetic chronic kidney disease; I87.2 Venous insufficiency (chronic) (peripheral); I35.0 Nonrheumatic aortic (valve) stenosis; F03.90 Unspecified dementia, unspecified severity, without behavioral disturbance, psychotic disturbance, mood disturbance, and anxiety; E78.2 Mixed hyperlipidemia; I27.20 Pulmonary hypertension, unspecified; M10.071 Idiopathic gout, right ankle and foot; E11.40 Type 2 diabetes mellitus with diabetic neuropathy, unspecified; D63.1 Anemia in chronic kidney disease; G40.909 Epilepsy, unspecified, not intractable, without status epilepticus; M51.379 Other intervertebral disc degeneration, lumbosacral region without mention of lumbar back pain or lower extremity pain; E87.6 Hypokalemia; I08.0 Rheumatic disorders of both mitral and aortic valves; G47.33 Obstructive sleep apnea (adult) (pediatric); R74.01 Elevation of levels of liver transaminase levels; E66.01 Morbid (severe) obesity due to excess calories; Z95.0 Presence of cardiac pacemaker; Z95.2 Presence of prosthetic heart valve; Z79.899 Other long term (current) drug therapy; Z79.82 Long term (current) use of aspirin; Z79.01 Long term (current) use of anticoagulants; Z91.09 Other allergy status, other than to drugs and biological substances; Z87.891 Personal history of nicotine dependence; Z55.5 Less than a high school diploma; Z63.5 Disruption of family by separation and divorce; Z11.52 Encounter for screening for COVID-19; Z68.35 Body mass index [BMI] 35.0-35.9, adult
CPT/HCPCS: 36415; 36416; 36430; 36573; 36592; 36600; 51702; 71045; 71275; 74177; 80048; 80051; 80053; 80202; 81000; 81001; 82330; 82550; 82803; 82805; 82962; 83605; 83735; 83880; 84100; 84145; 84443; 84484; 85025; 85651; 85730; 86140; 86850; 86900; 86920; 87040; 87070; 87086; 87205; 87486; 87581; 87633; 87637; 93005; 93306; 93971; 94002; 94003; 94799; 96365; 96366; 96367; 96375; 99215; 99285; 99291; 99292; C1751; J1644; J1938; J2020; J2060; J2185; J2250; J2470; J2543; J2704; J3372; J3373; J3480; J3490; J7040; J7050; J7799; J9999; P9016; P9046